=== PATIENT | female | born 1955 | race Caucasian/White ===

== ENCOUNTER → 2017-01-06 | Outpatient (CLI) | payer MEDICARE ==
[~2017-01-06] MED LIST: AMIT25TA PO; ARIP1TAB6 PO; ASPI1TAB PO; ASPI81TAEC PO; ATOR40TA PO; BACITAB3 PO; CARV3.12 PO; CLEO300C2 PO; COLA100C PO; CORE3.12 PO; CYCL5TA PO; DEPA500T2 PO; DICL13PA TOP; DIPH25CA PO; DOCU100C PO; DOXY100C PO; DOXY100T PO; EUCECRE3 TOP; FERR325T PO; FERR325T3 PO; FURO20TA2 PO; HYDR-3713 PO; HYDR25T PO; KEFL500C7 PO; LASI20TA PO; LASI40TA PO; LEVO137T2 PO; LISI-542 PO; LISI25TA PO; MUSCCRE9 EXT; MUSCCRE9 TOP; PANT20TA PO; PANT40TA2 PO; PARO15TA PO; PERC10TA17 PO; PERCOCET PO; PLAV75TA38 PO; POTA10CA PO; PRED10TA PO; REQU0.5T PO; ROPI0.25 PO; ROPI0.5T PO; TORS20TA2 PO; TRAZ25TA PO; TRIA1OI TOP; VITA-130 PO
[2017-01-06 14:29] LABS: BASO % 0.5 % (0.0-1.0); EOS # 0.5 K/mm3 (0.0-0.50); EOS % 6.9 % (0.0-3.0); LARGE UNSTAINED CELL # 0.1 K/mm3 (0.0-0.4); LARGE UNSTAINED CELL % 1.8 % (0.0-4.0); LYMPH # 1.8 K/mm3 (1.5-4.5); LYMPH % 24.6 % (24.0-44.0); MEAN CORPUSCULAR HEMOGLOBIN 28.4 pg (27.0-33.0); MEAN CORPUSCULAR HGB CONC 31.4 g/dl (32.0-36.5); MEAN CORPUSCULAR VOLUME 90.4 fl (80.0-96.0); MONO # 0.5 K/mm3 (0.0-0.8); MONO % 7.4 % (0.0-5.0); NEUTROPHILS % 58.8 % (36.0-66.0); PLATELET COUNT, AUTOMATED 399 k/mm3 (150-450); RED CELL DISTRIBUTION WIDTH 16.5 % (11.5-14.5); WHITE BLOOD COUNT 6.7 K/mm3 (4.0-10.0)
[2017-01-06 15:02] LABS: ALBUMIN 3.2 GM/DL (3.2-5.2); CALCIUM LEVEL 8.8 MG/DL (8.8-10.2); CREATININE FOR GFR 1.08 MG/DL (0.55-1.02); GLOMERULAR FILTRATION RATE 54.5 (>45); PHOSPHORUS LEVEL 3.6 MG/DL (2.5-4.9)
== END ==
LOC: M LAB 13:11
PROVIDERS: ATTEND Internal Medicine Rheumatology
DX: Z51.81 Encounter for therapeutic drug level monitoring (principal); Z79.899 Other long term (current) drug therapy; M05.79 Rheumatoid arthritis with rheumatoid factor of multiple sites without organ or systems involvement

== ENCOUNTER → 2017-01-16 | Outpatient (CLI) | payer MEDICARE ==
[2017-01-16 17:17] LABS: BASO % 0.5 % (0.0-1.0); EOS # 0.4 K/mm3 (0.0-0.50); EOS % 6.1 % (0.0-3.0); LARGE UNSTAINED CELL # 0.3 K/mm3 (0.0-0.4); LARGE UNSTAINED CELL % 3.8 % (0.0-4.0); LYMPH # 1.7 K/mm3 (1.5-4.5); LYMPH % 25.6 % (24.0-44.0); MEAN CORPUSCULAR HEMOGLOBIN 27.5 pg (27.0-33.0); MEAN CORPUSCULAR HGB CONC 30.7 g/dl (32.0-36.5); MEAN CORPUSCULAR VOLUME 89.7 fl (80.0-96.0); MONO # 0.5 K/mm3 (0.0-0.8); MONO % 6.9 % (0.0-5.0); NEUTROPHILS # 3.8 K/mm3 (1.8-7.7); NEUTROPHILS % 57.1 % (36.0-66.0); PLATELET COUNT, AUTOMATED 317 k/mm3 (150-450); RED CELL DISTRIBUTION WIDTH 15.6 % (11.5-14.5); WHITE BLOOD COUNT 6.6 K/mm3 (4.0-10.0)
[2017-01-16 17:47] LABS: ALBUMIN 3.1 GM/DL (3.2-5.2); ANION GAP 7 MEQ/L (8-16); BLOOD UREA NITROGEN 14 MG/DL (7-18); CALCIUM LEVEL 8.7 MG/DL (8.8-10.2); CARBON DIOXIDE LEVEL 32 MEQ/L (21-32); CHLORIDE LEVEL 106 MEQ/L (98-107); CREATININE FOR GFR 0.85 MG/DL (0.55-1.02); GLOMERULAR FILTRATION RATE > 60.0 (>45); GLUCOSE, FASTING 95 MG/DL (80-110); PHOSPHORUS LEVEL 3.8 MG/DL (2.5-4.9); SODIUM LEVEL 145 MEQ/L (136-145)
--- NOTE | 2017-01-16 18:22 | REP ---
Clinical: Rheumatoid arthritis. Technique: AP, lateral, bilateral oblique, sunrise, and weightbearing views of the right and left knee. Findings: Age-related osteopenia with moderate left and early advanced right tricompartmental osteoarthritic degenerative changes appreciated. Findings include cortical irregularities, increased sclerosis to the tibial surface, subtle subchondral cystic changes (right greater than left) and marginal osteophyte (right greater than left) as well as patellofemoral joint space narrowing and marginal spurring along the lateral aspect of the patellae. No obvious effusion. No fracture or dislocation. Impression: Bilateral osteoarthritic degenerative changes as described above (right greater than left). Signed by Jackson Covington MD 01/16/2017 06:12 P
== END ==
LOC: M LAB 16:55
PROVIDERS: ATTEND Internal Medicine Rheumatology
DX: Z51.81 Encounter for therapeutic drug level monitoring (principal); Z79.899 Other long term (current) drug therapy; M05.79 Rheumatoid arthritis with rheumatoid factor of multiple sites without organ or systems involvement; D63.8 Anemia in other chronic diseases classified elsewhere; R53.83 Other fatigue; M17.0 Bilateral primary osteoarthritis of knee

== ENCOUNTER → 2017-01-19 | Outpatient (CLI) | payer MEDICARE ==
--- NOTE | 2017-01-20 06:39 | REP ---
CT study of the chest without contrast: History: Follow-up pulmonary nodules. Comparison CT studies are dated August 22, 2016 and October 04, 2009. CT findings: There are stable pretracheal mediastinal lymph nodes. A large hiatal hernia is again seen behind the heart. No adrenal lesion is seen. The visualized upper abdominal structures are otherwise unremarkable. There is fairly heavy vascular calcification in the left coronary artery again noted. The right shoulder is replaced. There are multiple noncalcified pulmonary nodules. These are present bilaterally. They range in size from 2 mm to 9 mm. The 9 mm nodule is seen in the right upper lobe just posterior to the right upper lobe bronchus centrally. This is unchanged from the comparison study of August 22, 2016 but is new from the 2008 study. The next largest nodule is in the right middle lobe. This is unchanged from the comparison study of August 22, 2016. It is new from 2008. It measures 6 mm today. There are multiple other smaller nodules in the upper lobes bilaterally and in the right lower lobe. There are two new pulmonary nodules in the right lower lobe noted on image numbers 44 and 42 of 102 in series 201 of today's study. These are 4 and 6 mm in diameter respectively. There is another new pulmonary nodule in the right upper lobe on image 29 of 102 in series 201. This is 3 mm in diameter. The other visualized nodules appear to be unchanged. No bony destructive lesion is seen. Impression: 1. Multiple noncalcified pulmonary nodules ranging from 2-9 mm. This includes three new pulmonary nodules since the August 22, 2016 study. Most of these are new from 2008. I cannot exclude metastatic disease. 2. Hiatal hernia and fairly heavy left coronary artery vascular calcification are again noted. Signed by Charles Guerra MD 01/20/2017 08:29 A
== END ==
LOC: M RAD 18:17
PROVIDERS: ATTEND Internal Medicine Pulmonary Disease
DX: R91.8 Other nonspecific abnormal finding of lung field (principal); K44.9 Diaphragmatic hernia without obstruction or gangrene; I25.10 Atherosclerotic heart disease of native coronary artery without angina pectoris

== ENCOUNTER → 2017-01-29 | Outpatient (CLI) | payer MEDICARE ==
[2017-01-29 18:14] LABS: BASO % 0.4 % (0.0-1.0); EOS # 0.4 K/mm3 (0.0-0.50); EOS % 5.2 % (0.0-3.0); LARGE UNSTAINED CELL # 0.2 K/mm3 (0.0-0.4); LARGE UNSTAINED CELL % 2.2 % (0.0-4.0); LYMPH # 1.3 K/mm3 (1.5-4.5); LYMPH % 15.4 % (24.0-44.0); MEAN CORPUSCULAR HEMOGLOBIN 28.1 pg (27.0-33.0); MEAN CORPUSCULAR HGB CONC 31.5 g/dl (32.0-36.5); MEAN CORPUSCULAR VOLUME 89.1 fl (80.0-96.0); MONO # 0.2 K/mm3 (0.0-0.8); MONO % 2.7 % (0.0-5.0); NEUTROPHILS % 74.3 % (36.0-66.0); PLATELET COUNT, AUTOMATED 395 k/mm3 (150-450); RED CELL DISTRIBUTION WIDTH 15.2 % (11.5-14.5); WHITE BLOOD COUNT 8.1 K/mm3 (4.0-10.0)
[2017-01-29 18:57] LABS: ALBUMIN 3.1 GM/DL (3.2-5.2); ALT/SGPT 15 U/L (12-78); ANION GAP 7 MEQ/L (8-16); BLOOD UREA NITROGEN 21 MG/DL (7-18); CALCIUM LEVEL 8.8 MG/DL (8.8-10.2); CARBON DIOXIDE LEVEL 34 MEQ/L (21-32); CHLORIDE LEVEL 100 MEQ/L (98-107); CREATININE FOR GFR 0.88 MG/DL (0.55-1.02); GLOMERULAR FILTRATION RATE > 60.0 (>45); GLUCOSE, FASTING 89 MG/DL (80-110); PHOSPHORUS LEVEL 3.4 MG/DL (2.5-4.9); POTASSIUM SERUM 4.5 MEQ/L (3.5-5.1); SODIUM LEVEL 141 MEQ/L (136-145)
== END ==
LOC: M LAB 17:37
PROVIDERS: ATTEND Internal Medicine Rheumatology
DX: Z51.81 Encounter for therapeutic drug level monitoring (principal); M05.79 Rheumatoid arthritis with rheumatoid factor of multiple sites without organ or systems involvement; Z79.899 Other long term (current) drug therapy

== ENCOUNTER → 2017-02-27 | Outpatient (CLI) | payer MEDICARE ==
[~2017-02-27] MED LIST changes: -COLA100C PO; +COLA100C3 PO; +LISI2.5T76 PO; -LISI25TA PO
[2017-02-27 20:36] LABS: BASO % 0.5 % (0.0-1.0); EOS # 0.3 K/mm3 (0.0-0.50); EOS % 3.5 % (0.0-3.0); LARGE UNSTAINED CELL # 0.1 K/mm3 (0.0-0.4); LARGE UNSTAINED CELL % 1.5 % (0.0-4.0); LYMPH # 1.8 K/mm3 (1.5-4.5); LYMPH % 23.7 % (24.0-44.0); MEAN CORPUSCULAR HEMOGLOBIN 27.7 pg (27.0-33.0); MEAN CORPUSCULAR HGB CONC 31.4 g/dl (32.0-36.5); MEAN CORPUSCULAR VOLUME 88.2 fl (80.0-96.0); MONO # 0.3 K/mm3 (0.0-0.8); NEUTROPHILS % 66.7 % (36.0-66.0); PLATELET COUNT, AUTOMATED 348 k/mm3 (150-450); RED CELL DISTRIBUTION WIDTH 15.9 % (11.5-14.5); WHITE BLOOD COUNT 7.5 K/mm3 (4.0-10.0)
[2017-02-27 21:05] LABS: ALT/SGPT 27 U/L (12-78); ANION GAP 5 MEQ/L (8-16); BLOOD UREA NITROGEN 21 MG/DL (7-18); CALCIUM LEVEL 9.1 MG/DL (8.8-10.2); CARBON DIOXIDE LEVEL 36 MEQ/L (21-32); CHLORIDE LEVEL 98 MEQ/L (98-107); CREATININE FOR GFR 0.84 MG/DL (0.55-1.02); GLOMERULAR FILTRATION RATE > 60.0 (>45); GLUCOSE, FASTING 89 MG/DL (80-110); PHOSPHORUS LEVEL 3.5 MG/DL (2.5-4.9); POTASSIUM SERUM 3.9 MEQ/L (3.5-5.1); SODIUM LEVEL 139 MEQ/L (136-145)
[2017-02-27 21:06] LABS: ALBUMIN 3.5 GM/DL (3.2-5.2)
== END ==
LOC: M LAB 18:15
PROVIDERS: ATTEND Internal Medicine Rheumatology
DX: Z51.81 Encounter for therapeutic drug level monitoring (principal); Z79.899 Other long term (current) drug therapy; M05.79 Rheumatoid arthritis with rheumatoid factor of multiple sites without organ or systems involvement

== ENCOUNTER 2017-03-15 10:00 | Emergency (ER) | payer MEDICARE ==
[~2017-03-15] VITALS: Ht 167.6 cm; Wt 77.1 kg
[2017-03-15] MEDS ORDERED: NORCO, ANEXSIA 5/325MG TABLET (HYDROcodone/ACETAMINOPHEN) PO ONE (10:45)
--- NOTE | 2017-03-15 11:46 | REP ---
CT of the brain without IV contrast: There are no comparisons. There is no subdural or epidural hematoma. There is no subarachnoid or intraparenchymal hemorrhage. There is no edema, mass effect or midline shift. Cortical stripe is unremarkable. Impression: There is no subdural or other hemorrhage. No acute infarct or mass. Negative CT study of the brain. Signed by Romeo Calabrese MD 03/15/2017 11:38 A
--- NOTE | 2017-03-15 11:54 | REP ---
Left ribs and PA chest: Left ribs four views: There is no rib fracture or other rib abnormality. PA chest: Comparison is 10/02/2016. There is no pneumothorax, hemothorax or pulmonary contusion. The lung hdz are clear. Cardiac size is normal. There is a fixed hiatal hernia, unchanged. There is a right shoulder arthroplasty, unchanged. Impression: Essentially negative PA chest. Hiatal hernia and right shoulder arthroplasty are again identified. Signed by Romeo Calabrese MD 03/15/2017 11:46 A
[2017-03-15 12:02] VITALS: BP 156/95
== END 2017-03-15 12:15 | disposition home or self-care (01) ==
LOC: M ED 10:49
DX: S00.03XA Contusion of scalp, initial encounter (principal); S20.219A Contusion of unspecified front wall of thorax, initial encounter; S80.00XA Contusion of unspecified knee, initial encounter; W01.10XA Fall on same level from slipping, tripping and stumbling with subsequent striking against unspecified object, initial encounter; Y92.019 Unspecified place in single-family (private) house as the place of occurrence of the external cause; Y93.89 Activity, other specified; Y99.8 Other external cause status; F17.210 Nicotine dependence, cigarettes, uncomplicated; Z88.1 Allergy status to other antibiotic agents; Z79.899 Other long term (current) drug therapy; Z79.82 Long term (current) use of aspirin; G25.81 Restless legs syndrome; Z95.5 Presence of coronary angioplasty implant and graft; E78.00 Pure hypercholesterolemia, unspecified; E03.9 Hypothyroidism, unspecified; F41.9 Anxiety disorder, unspecified; F32.9 Major depressive disorder, single episode, unspecified

== ENCOUNTER → 2017-03-18 | Outpatient (CLI) | payer MEDICARE ==
[2017-03-18 07:01] LABS: BASO % 0.5 % (0.0-1.0); EOS # 0.2 K/mm3 (0.0-0.50); EOS % 3.1 % (0.0-3.0); LARGE UNSTAINED CELL # 0.1 K/mm3 (0.0-0.4); LARGE UNSTAINED CELL % 1.5 % (0.0-4.0); LYMPH # 1.4 K/mm3 (1.5-4.5); LYMPH % 18.1 % (24.0-44.0); MEAN CORPUSCULAR HEMOGLOBIN 28.8 pg (27.0-33.0); MEAN CORPUSCULAR HGB CONC 32.7 g/dl (32.0-36.5); MEAN CORPUSCULAR VOLUME 88.1 fl (80.0-96.0); MONO # 0.4 K/mm3 (0.0-0.8); MONO % 5.3 % (0.0-5.0); NEUTROPHILS # 5.7 K/mm3 (1.8-7.7); NEUTROPHILS % 71.4 % (36.0-66.0); PLATELET COUNT, AUTOMATED 333 k/mm3 (150-450); RED CELL DISTRIBUTION WIDTH 16.6 % (11.5-14.5)
[2017-03-18 07:38] LABS: ALBUMIN/GLOBULIN RATIO 0.91 (1.00-1.93); ALKALINE PHOSPHATASE 99 U/L (45-117); ALT/SGPT 34 U/L (12-78); ANION GAP 4 MEQ/L (8-16); AST/SGOT 28 U/L (15-37); BILIRUBIN,TOTAL 0.3 MG/DL (0.2-1.0); BLOOD UREA NITROGEN 16 MG/DL (7-18); CALCIUM LEVEL 8.5 MG/DL (8.8-10.2); CARBON DIOXIDE LEVEL 30 MEQ/L (21-32); CHLORIDE LEVEL 106 MEQ/L (98-107); CHOLESTEROL LEVEL 174 MG/DL (<200); CREATININE FOR GFR 0.69 MG/DL (0.55-1.02); FERRITIN 19 NG/ML (8-252); FREE T4 1.04 NG/DL (0.76-1.46); GLOMERULAR FILTRATION RATE > 60.0 (>45); GLUCOSE, FASTING 100 MG/DL (80-110); PERCENT SATURATION 5.2 % (13.2-37.4); POTASSIUM SERUM 4.5 MEQ/L (3.5-5.1); SODIUM LEVEL 140 MEQ/L (136-145); TOTAL IRON BINDING CAPACITY 383 UG/DL (250-450); TOTAL PROTEIN 6.3 GM/DL (6.4-8.2); TRIGLYCERIDES LEVEL 123 MG/DL (<150)
[2017-03-18 09:18] LABS: FOLATE 18.7 NG/ML; VITAMIN B12 LEVEL 462 PG/ML
== END ==
LOC: M LAB 06:21
PROVIDERS: ATTEND Family Medicine
DX: M06.9 Rheumatoid arthritis, unspecified (principal); E03.9 Hypothyroidism, unspecified; I10 Essential (primary) hypertension; G25.81 Restless legs syndrome; E78.5 Hyperlipidemia, unspecified; D64.9 Anemia, unspecified

== ENCOUNTER 2017-04-22 16:36 | Emergency (ER) | payer MEDICARE ==
[~2017-04-22] VITALS: Ht 167.6 cm; Wt 75.3 kg
[2017-04-22] MEDS ORDERED: ROPI1TAB PO (16:54)
[2017-04-22] MEDS ORDERED: ABIL5TAB5 PO (16:54)
[2017-04-22] MEDS ORDERED: FOLI1TAB2 PO (16:54)
[2017-04-22] MEDS ORDERED: PERC10TA17 PO (16:54)
[2017-04-22] MEDS ORDERED: TORS20TA2 PO (16:54)
[2017-04-22 17:55] LABS: BASO % 0.5 % (0.0-1.0); EOS # 0.2 K/mm3 (0.0-0.50); EOS % 3.2 % (0.0-3.0); LARGE UNSTAINED CELL # 0.2 K/mm3 (0.0-0.4); LARGE UNSTAINED CELL % 2.6 % (0.0-4.0); LYMPH # 1.4 K/mm3 (1.5-4.5); LYMPH % 21.7 % (24.0-44.0); MEAN CORPUSCULAR HEMOGLOBIN 27.3 pg (27.0-33.0); MEAN CORPUSCULAR HGB CONC 31.9 g/dl (32.0-36.5); MEAN CORPUSCULAR VOLUME 85.7 fl (80.0-96.0); MONO # 0.4 K/mm3 (0.0-0.8); MONO % 6.8 % (0.0-5.0); NEUTROPHILS # 4.1 K/mm3 (1.8-7.7); NEUTROPHILS % 65.2 % (36.0-66.0); PLATELET COUNT, AUTOMATED 312 k/mm3 (150-450); RED CELL DISTRIBUTION WIDTH 16.1 % (11.5-14.5); WHITE BLOOD COUNT 6.3 K/mm3 (4.0-10.0)
[2017-04-22] MEDS ORDERED: MECLIZINE 25 MG TABLET PO ONE (18:00)
[2017-04-22 18:15] LABS: ANION GAP 9 MEQ/L (8-16); BLOOD UREA NITROGEN 14 MG/DL (7-18); CALCIUM LEVEL 8.8 MG/DL (8.8-10.2); CARBON DIOXIDE LEVEL 32 MEQ/L (21-32); CHLORIDE LEVEL 99 MEQ/L (98-107); CREATININE FOR GFR 0.78 MG/DL (0.55-1.02); FREE T4 1.43 NG/DL (0.76-1.46); GLOMERULAR FILTRATION RATE > 60.0 (>45); GLUCOSE, FASTING 100 MG/DL (80-110); POTASSIUM SERUM 3.9 MEQ/L (3.5-5.1); SODIUM LEVEL 140 MEQ/L (136-145)
--- NOTE | 2017-04-22 18:21 | REP ---
CT of the brain without IV contrast: Comparison is 03/15/2017. There is no hemorrhage. The cortical stripe is unremarkable. Ventricles are normal size and midline. There is no edema, mass effect or midline shift. The visualized paranasal sinuses and mastoid air cells are unchanged. Impression: Essentially negative CT study of the brain. There is no hemorrhage, acute infarct or mass. Signed by Romeo Calabrese MD 04/22/2017 06:12 P
--- NOTE | 2017-04-22 18:23 | REP ---
Chest, single PA view: Comparison is 03/15/2017. The lung hdz are clear. Cardiac size is normal. The shelley, mediastinum, and bony thorax are unremarkable. There is a fixed hiatal hernia, unchanged. There is a right shoulder arthroplasty, unchanged. Impression: There are no acute cardiopulmonary findings. Signed by Romeo Calabrese MD 04/22/2017 06:14 P
[2017-04-22 18:36] LABS: METHADONE URINE NEGATIVE (NEGATIVE)
[2017-04-22] MEDS ORDERED: MECL-86 PO (20:36)
[2017-04-22 20:48] VITALS: BP 135/80
--- NOTE | 2017-04-23 08:58 | ECGEPIP ---
Stationary ECG Study [facility] - ED Test Date: 2017-04-22 Pat Name: TEDDY GOODWIN Department: Room: - Gender: F [employer] Manager: karyna : 1955 Requested By: JACQUELINE Odom Order Number: [id number] Reading MD: Lucila Lan Measurements Intervals [place] Rate: 95 P: 49 SC: 183 QRS: 1 QRSD: 86 T: 3 QT: 341 QTc: 430 Interpretive Statements SINUS RHYTHM MODERATE T-WAVE ABNORMALITY, CONSIDER ANTEROLATERAL ISCHEMIA ?INFERIOR INFARCT CLINICAL CORRELATION NO PRIOR FOR COMPARISON Electronically Signed On 04-23-2017 8:58:05 EDT by Lucila Lan
== END 2017-04-22 21:41 | disposition home or self-care (01) ==
LOC: M ED 17:51
DX: H81.10 Benign paroxysmal vertigo, unspecified ear (principal); R94.31 Abnormal electrocardiogram [ECG] [EKG]; I25.10 Atherosclerotic heart disease of native coronary artery without angina pectoris; I51.9 Heart disease, unspecified; F32.9 Major depressive disorder, single episode, unspecified; G25.81 Restless legs syndrome; E78.00 Pure hypercholesterolemia, unspecified; I10 Essential (primary) hypertension; Z87.891 Personal history of nicotine dependence; Z95.5 Presence of coronary angioplasty implant and graft; Z79.82 Long term (current) use of aspirin; Z79.899 Other long term (current) drug therapy; Z88.1 Allergy status to other antibiotic agents
CPT/HCPCS: 36415; 70450; 71010; 80048; 80306; 81001; 83735; 84439; 84443; 85025; 93005; 93041; 94760; 99285; G0480

== ENCOUNTER → 2017-05-20 | Outpatient (CLI) | payer MEDICARE ==
[~2017-05-20] MED LIST changes: +ABIL5TAB5 PO; +FOLI1TAB2 PO; +MECL-86 PO; +ROPI1TAB PO
[2017-05-20 12:48] LABS: ALBUMIN 2.7 GM/DL (3.2-5.2); ALBUMIN/GLOBULIN RATIO 0.71 (1.00-1.93); ALKALINE PHOSPHATASE 93 U/L (45-117); ALT/SGPT 22 U/L (12-78); ANION GAP 6 MEQ/L (8-16); AST/SGOT 48 U/L (15-37); BILIRUBIN,TOTAL 0.5 MG/DL (0.2-1.0); BLOOD UREA NITROGEN 15 MG/DL (7-18); CALCIUM LEVEL 9.1 MG/DL (8.8-10.2); CARBON DIOXIDE LEVEL 32 MEQ/L (21-32); CHLORIDE LEVEL 102 MEQ/L (98-107); CREATININE FOR GFR 0.86 MG/DL (0.55-1.02); GLOMERULAR FILTRATION RATE > 60.0 (>45); GLUCOSE, FASTING 83 MG/DL (80-110); SODIUM LEVEL 140 MEQ/L (136-145); TOTAL PROTEIN 6.5 GM/DL (6.4-8.2)
== END ==
LOC: M LAB 11:30
PROVIDERS: ATTEND Internal Medicine Rheumatology
DX: Z79.899 Other long term (current) drug therapy (principal)

== ENCOUNTER 2017-07-02 11:38 | Emergency (ER) | payer MEDICARE ==
[~2017-07-02] VITALS: Ht 167.6 cm; Wt 71.7 kg
[~2017-07-02 11:38] MED LIST changes: +ABIL1TAB11 PO; -ABIL5TAB5 PO; -ATOR40TA PO; +ATOR40TA75 PO; +BACITAB PO; -BACITAB3 PO; -COLA100C3 PO; +COLA100C5 PO; -CYCL5TA PO; +CYCL5TAB PO; -DOCU100C PO; +DOCU100C16 PO; +FERR1TAB8 PO; -FERR325T PO; -FOLI1TAB2 PO; +FOLI1TAB4 PO; +HYDR-3363 PO; -HYDR25T PO; +KEFL500C17 PO; -KEFL500C7 PO; +MUSC1CRE EXT; +MUSC1CRE TOP; -MUSCCRE9 EXT; -MUSCCRE9 TOP; -PERC10TA17 PO; +PERC10TA26 PO; +PLAV1TAB2 PO; -PLAV75TA38 PO; -REQU0.5T PO; +REQU1TAB15 PO; -VITA-130 PO; +VITA500T PO
[2017-07-02 11:39] VITALS: BP 98/55
[2017-07-02] MEDS ORDERED: PERM5CR (11:51)
[2017-07-02] MEDS ORDERED: OXYCOD/APAP (11:51)
[2017-07-02] MEDS ORDERED: CARV6.25 PO (11:51)
[2017-07-02] MEDS ORDERED: OPAN5TAB PO (11:51)
[2017-07-02] MEDS ORDERED: PARO15TA PO (11:51)
[2017-07-02] MEDS ORDERED: ERYTOIN8 OU (13:09)
[2017-07-02] MEDS ORDERED: CLAR1TAB2 PO (13:09)
[2017-07-02] MEDS ORDERED: AUGM875T28 PO (13:09)
[2017-07-02] MEDS ORDERED: LORATADINE 10 MG TAB PO ONE (13:15)
[2017-07-02] MEDS ORDERED: AUGMENTIN 875 MG TAB PO ONE (13:15)
== END 2017-07-02 13:19 | disposition home or self-care (01) ==
LOC: M ED 11:38
DX: H10.213 Acute toxic conjunctivitis, bilateral (principal); T60.1X1A Toxic effect of halogenated insecticides, accidental (unintentional), initial encounter; Y92.9 Unspecified place or not applicable; Y93.9 Activity, unspecified; Z95.5 Presence of coronary angioplasty implant and graft; G25.81 Restless legs syndrome; R51 Headache; I50.9 Heart failure, unspecified; I25.2 Old myocardial infarction; E78.00 Pure hypercholesterolemia, unspecified; E03.9 Hypothyroidism, unspecified; F17.290 Nicotine dependence, other tobacco product, uncomplicated; K92.9 Disease of digestive system, unspecified; Z87.440 Personal history of urinary (tract) infections; Z85.41 Personal history of malignant neoplasm of cervix uteri; G89.29 Other chronic pain; M25.569 Pain in unspecified knee; M71.20 Synovial cyst of popliteal space [Baker], unspecified knee; D75.9 Disease of blood and blood-forming organs, unspecified; F41.9 Anxiety disorder, unspecified; F32.9 Major depressive disorder, single episode, unspecified; Z79.82 Long term (current) use of aspirin; Z79.899 Other long term (current) drug therapy; Z88.1 Allergy status to other antibiotic agents

== ENCOUNTER 2017-07-18 11:12 | Emergency (ER) | payer MEDICARE ==
[~2017-07-18] VITALS: Ht 167.6 cm; Wt 69.5 kg
[~2017-07-18 11:12] MED LIST changes: +AUGM875T28 PO; +CARV6.25 PO; +CLAR1TAB2 PO; +ERYTOIN8 OU; +OPAN5TAB PO; +OXYCOD/APAP; +PERM5CR
[2017-07-18 11:13] VITALS: BP 99/55
[2017-07-18 12:27] LABS: BASO % 0.4 % (0.0-1.0); EOS # 0.7 K/mm3 (0.0-0.50); EOS % 9.6 % (0.0-3.0); LARGE UNSTAINED CELL # 0.1 K/mm3 (0.0-0.4); LARGE UNSTAINED CELL % 1.1 % (0.0-4.0); LYMPH % 14.2 % (24.0-44.0); MEAN CORPUSCULAR HEMOGLOBIN 27.8 pg (27.0-33.0); MEAN CORPUSCULAR HGB CONC 31.5 g/dl (32.0-36.5); MEAN CORPUSCULAR VOLUME 88.3 fl (80.0-96.0); MONO # 0.5 K/mm3 (0.0-0.8); MONO % 7.4 % (0.0-5.0); NEUTROPHILS # 4.7 K/mm3 (1.8-7.7); NEUTROPHILS % 67.4 % (36.0-66.0); PLATELET COUNT, AUTOMATED 343 k/mm3 (150-450); RED CELL DISTRIBUTION WIDTH 15.8 % (11.5-14.5)
[2017-07-18 12:48] LABS: ERYTHROCYTE SEDIMENTATION RATE 58 mm/hr (0-30)
--- NOTE | 2017-07-18 12:55 | REP ---
Chest two views HISTORY: Cough Comparison: 04/22/2017 The lungs are clear. The heart is normal in size. The pulmonary vasculature is normal in appearance. A hiatal hernia is present. Degenerative change is present in the thoracic spine. The patient is status post right shoulder arthroplasty. IMPRESSION: No acute disease. Signed by Bayron Gonzalez MD 07/18/2017 12:47 P
[2017-07-18 13:07] LABS: ANION GAP 8 MEQ/L (8-16); BLOOD UREA NITROGEN 14 MG/DL (7-18); CALCIUM LEVEL 8.6 MG/DL (8.8-10.2); CARBON DIOXIDE LEVEL 30 MEQ/L (21-32); CHLORIDE LEVEL 106 MEQ/L (98-107); CREATININE FOR GFR 0.73 MG/DL (0.55-1.02); GLOMERULAR FILTRATION RATE > 60.0 (>45); GLUCOSE, FASTING 103 MG/DL (80-110); POTASSIUM SERUM 4.3 MEQ/L (3.5-5.1); SODIUM LEVEL 144 MEQ/L (136-145)
[2017-07-18 13:12] LABS: ALBUMIN 2.7 GM/DL (3.2-5.2); ALBUMIN/GLOBULIN RATIO 0.66 (1.00-1.93); BILIRUBIN,DIRECT 0.1 MG/DL (0.0-0.2); BILIRUBIN,TOTAL 0.2 MG/DL (0.2-1.0); TOTAL PROTEIN 6.8 GM/DL (6.4-8.2)
[2017-07-18] MEDS ORDERED: PRED20TA PO (13:50)
== END 2017-07-18 14:00 | disposition home or self-care (01) ==
LOC: M ED 11:12
DX: R21 Rash and other nonspecific skin eruption (principal); T60.1X Toxic effect of halogenated insecticides; Y92.9 Unspecified place or not applicable; Y93.9 Activity, unspecified; I25.10 Atherosclerotic heart disease of native coronary artery without angina pectoris; I50.9 Heart failure, unspecified; I25.2 Old myocardial infarction; G25.81 Restless legs syndrome; M54.2 Cervicalgia; M25.569 Pain in unspecified knee; F41.9 Anxiety disorder, unspecified; F32.9 Major depressive disorder, single episode, unspecified; K21.9 Gastro-esophageal reflux disease without esophagitis; D64.9 Anemia, unspecified; Z95.5 Presence of coronary angioplasty implant and graft; F17.290 Nicotine dependence, other tobacco product, uncomplicated; Z79.82 Long term (current) use of aspirin; Z79.899 Other long term (current) drug therapy; Z88.1 Allergy status to other antibiotic agents; Z88.8 Allergy status to other drugs, medicaments and biological substances

== ENCOUNTER → 2017-07-20 | Outpatient (REF) | payer MEDICARE ==
[~2017-07-20] MED LIST changes: +BETA115CR; +COUM2.5T17 PO; +ESTR62CR PV; +NYST10CR; +OXYC-141 PO; +PRED20TA PO
== END ==
LOC: M SFHCWAGY 15:50
PROVIDERS: ATTEND Nurse Practitioner Family
DX: N89.8 Other specified noninflammatory disorders of vagina (principal); Z11.3 Encounter for screening for infections with a predominantly sexual mode of transmission; R87.810 Cervical high risk human papillomavirus (HPV) DNA test positive; Z11.51 Encounter for screening for human papillomavirus (HPV); Z85.41 Personal history of malignant neoplasm of cervix uteri; Z86.19 Personal history of other infectious and parasitic diseases

== ENCOUNTER → 2017-07-31 | Outpatient (CLI) | payer MEDICARE ==
[~2017-07-31] MED LIST changes: +CETI10TA; +GABA-279; +ISOVUE-370 76% 100ML VIAL (Q9967) As Ordered ONE; +METH4PACK; +RANI150T; +ZITH250T PO
--- NOTE | 2017-07-31 12:34 | REP ---
Clinical: Follow-up pulmonary nodules. Technique: Axial contrast enhanced images from the thoracic inlet to the upper abdomen using 100 ml Isovue 370 intravenous contrast material with coronal and sagittal re-formations. Comparison: 01/19/2017, 08/22/2016, 10/04/2009. Findings: Current examination demonstrates chronic age-related diffuse interstitial changes and bronchiectasis along with scattered scarring. Scattered bilateral pulmonary nodules are identified measuring up to 7 mm and has a somewhat waxing and waning appearance when compared to prior examination. As example, 7 mm nodule in the perihilar right upper lobe (image 37) previously measured 9.5 mm while the 5 mm nodule in the periphery of the right lower lobe (image 54) previously measured 2.5 mm. No consolidation, pleural effusion or pneumothorax. Tracheobronchial tree is patent. A moderate hiatal hernia is appreciated. Atherosclerotic changes to the thoracic aorta and coronary arteries noted. No pericardial effusion. Upper abdomen demonstrates normal bilateral adrenal glands. Impression: 1. Chronic interstitial changes and bronchiectasis similar to prior examinations. 2. Scattered noncalcified pulmonary nodules currently measuring up to 7 mm have a somewhat waxing and waning appearance when compared to prior examination. Findings are nonspecific and include but not limited to granulomas disease as well as metastatic disease which cannot be definitively excluded. Signed by Jackson Covington MD 07/31/2017 12:25 P
== END ==
LOC: M RAD 11:36
PROVIDERS: ATTEND Family Medicine
DX: R91.8 Other nonspecific abnormal finding of lung field (principal); K44.9 Diaphragmatic hernia without obstruction or gangrene; I25.10 Atherosclerotic heart disease of native coronary artery without angina pectoris; I70.0 Atherosclerosis of aorta
CPT/HCPCS: 71260; Q9967

== ENCOUNTER 2017-08-10 12:00 | Inpatient (IN) | payer MEDICARE, MEDICAID ==
[~2017-08-10] VITALS: Ht 162.6 cm; Wt 69.4 kg
[~2017-08-10 12:00] MED LIST changes: -BETA115CR; -CETI10TA; -COUM2.5T17 PO; -ESTR62CR PV; -GABA-279; -ISOVUE-370 76% 100ML VIAL (Q9967) As Ordered ONE; -METH4PACK; -NYST10CR; -OXYC-141 PO; -RANI150T; -ZITH250T PO
[2017-08-12] MEDS ORDERED: BETA115CR (10:41)
[2017-08-12] MEDS ORDERED: NYST10CR (10:41)
[2017-08-12] MEDS ORDERED: POTA10CA PO (10:41)
[2017-08-12 10:45] VITALS: BP 98/56
--- NOTE | 2017-08-13 16:29 | HPE ---
DATE OF SCHEDULED ADMISSION: 08/18/2017 CHIEF COMPLAINT: Right knee pain. HISTORY OF PRESENT ILLNESS: This is a pleasant 61-year-old female with progressively worsening right knee pain and stiffness. She has failed to improve with conservative treatment. She has elected for surgery for her continued symptoms. She has pain with weightbearing activities and her activities of daily living. X-rays of her knee are notable for advanced osteoarthritis of the right knee joint. She has consented for a right total knee arthroplasty by Dr. Hema Macdonald. Medical optimization was performed by Dr. Adkins. ALLERGIES: PERMETHRIN. CURRENT MEDICATIONS - Requip 1 mg at bedtime - Nystatin 100,000 units per gram, one thin layer under breasts twice a day as needed - betamethasone valerate 0.1%, apply to skin twice a day as needed - Klor-Con 10, 10 mEq one tablet by mouth daily - Synthroid 137 mcg a day - trazodone 50 mg at bedtime - torsemide 20 mg by mouth twice a day - Abilify 5 mg by mouth every day - Protonix 20 mg a day - Lipitor 40 mg a day - Percocet 10/325, one by mouth four times a day as needed - folic acid 1 mg by mouth every day - Paxil 30 mg every day - carvedilol 3.125 mg one by mouth twice a day - Depakote ER 500 mg - vitamin C 500 mg PAST MEDICAL HISTORY: Includes megaloblastic anemia, mood disorder, lumbar degenerative disc disease, rheumatoid arthritis, depression, gastroesophageal reflux disease (GERD), hypertension, hyperlipidemia, hypothyroidism, restless legs, obstructive sleep apnea and insomnia. PAST SURGICAL HISTORY: Revision left total hip arthroplasty. SOCIAL HISTORY: She is retired. Does not smoke; she quit smoking 7 years ago. Rarely drinks alcohol. FAMILY HISTORY: Noncontributory. REVIEW OF SYSTEMS: This patient denies chest pain, heart palpitations, cough, wheezing, difficulty breathing and shortness of breath. She denies abdominal pain, nausea, vomiting, diarrhea or constipation. She denies recent upper respiratory infection or urinary tract infection symptoms. She does complain of persistent pain in her right knee and pain with weightbearing activities in her right knee. PHYSICAL EXAMINATION: General: She is a well-nourished, well-developed, in no acute distress adult female. She ambulates with a moderate limp and a very slow, steady gait favoring her right lower extremity. She uses a single-leg cane. Vital signs: She is 62-1/2 inches tall, weighs 150 pounds with a temperature of 99.3, blood pressure 102/64, pulse of 68 and respirations of 12. Neck was supple without adenopathy or jugular venous distension. Lungs were clear to auscultation without rales or wheeze. Heart: Regular rate and rhythm. Abdomen: Bowel sounds were present. Extremities: Examination of the knee revealed intact skin. She had decreased range of motion secondary to pain and stiffness. The limb was neurovascularly intact. LABORATORY DATA: CBC showed a red count of 3.59, hemoglobin of 10.9, hematocrit of 32.6, red cell distribution width of 16.3, otherwise within normal limits. Sedimentation rate was 25, glucose 85, BUN 16, creatinine 0.67, sodium 144, potassium 5.4. Prothrombin time 13.1, INR 0.98. UA showed 1+ protein, trace ketones, 2.0 urobilinogen, trace leukocyte esterase, 4 white blood cells, 5 white blood cells and 1+ bacteria, otherwise within normal limits with a specific gravity of 1.031. Urine culture showed no growth. Nasal and sinus cultures still pending. IMPRESSION: 1. Symptomatic osteoarthritis of the right knee joint. 2. Hyperkalemia. PLAN: The patient met with her primary today who contacted cardiology. We are awaiting the clearance from them. Pending their approval, we will go ahead as planned for a right total knee arthroplasty with Dr. Macdonald on 08/18/2017.
[2017-08-18] VITALS (7 sets, daily range): BP systolic 85–125; BP diastolic 49–89; O2SAT 93
[2017-08-18] MEDS ORDERED: LR 1,000 ML IV ONE (13:15)
[2017-08-18] MEDS ORDERED: ACETAMINOPHEN 500 MG TAB PO ONE (13:15)
[2017-08-18] MEDS ORDERED: ceFAZolin 1GM INJ (J0690) As Ordered ONE (13:22)
[2017-08-18] MEDS ORDERED: TRANEXAMIC ACID 100 MG/ML 10ML VIAL As Ordered ONE (13:22)
[2017-08-18] MEDS ORDERED: BUPIVACAINE LIPOSOME/PF 1.3% 20 ML VIAL (13.3MG/ML)(EXPAREL) As Ordered ONE (13:22)
[2017-08-18] MEDS ORDERED: EPINEPHrine INJ 1 MG/ML 1ML AMP As Ordered ONE (13:22)
[2017-08-18] MEDS ORDERED: ESTR62CR PV (13:40)
[2017-08-18] MEDS ORDERED: MIDAZOLAM INJ 2 MG/2 ML VIAL (J2250) As Ordered ONE ×2 (13:50→14:27)
[2017-08-18] MEDS ORDERED: fentaNYL 100 MCG/2 ML INJECTION (J3010) As Ordered ONE ×2 (13:50→14:27)
[2017-08-18] MEDS: fentaNYL 100 MCG/2 ML INJECTION (J3010) IV SCH ×2 (14:13→14:21)
[2017-08-18] MEDS: MIDAZOLAM INJ 2 MG/2 ML VIAL (J2250) IV SCH ×2 (14:14→14:20)
[2017-08-18] MEDS ORDERED: LIDOCAINE 2% INJ 100 MG/5 ML SDV (FOR ANES.) As Ordered ONE (15:26)
[2017-08-18] MEDS ORDERED: PROPOFOL 200 MG/20 ML VIAL As Ordered ONE (15:26)
[2017-08-18] MEDS ORDERED: ePHEDrine SULFATE 25 MG/5 ML(5MG/ML) SYRINGE As Ordered ONE (15:27)
[2017-08-18] MEDS ORDERED: dexameTHASONE 4 MG/ML 1ML VIAL (J1100) As Ordered ONE (15:28)
[2017-08-18] MEDS ORDERED: ONDANSETRON 4MG/2ML VIAL (J2405) As Ordered ONE (15:28)
[2017-08-18] MEDS ORDERED: MORPHINE 1MG/ML IN 0.9% NACL 100ML IV BAG As Ordered ONE (16:00)
[2017-08-18] MEDS ORDERED: FLEET ENEMA PR PRN (17:00)
[2017-08-18] MEDS ORDERED: WARFARIN SOD 5 MG TAB PO ONE (17:00)
[2017-08-18] MEDS ORDERED: MORPHINE 1MG/ML IN 0.9% NACL 100ML IV BAG IV PRN (17:00)
[2017-08-18] MEDS ORDERED: NALOXONE INJ 0.4 MG/1 ML VIAL (J2310) IV PRN (17:00)
[2017-08-18] MEDS ORDERED: EPIDURAL/PCA KEYS XX PRN (17:00)
[2017-08-18] MEDS ORDERED: ONDANSETRON 4MG/2ML VIAL (J2405) IV PRN ×2 (17:00)
[2017-08-18] MEDS ORDERED: diphenhydrAMINE INJ 50MG/ML VIAL (J1200) IV PRN (17:00)
[2017-08-18] MEDS ORDERED: fentaNYL 100 MCG/2 ML INJECTION (J3010) IV PRN (17:00)
[2017-08-18] MEDS ORDERED: LORATADINE 10 MG TAB PO PRN (17:00)
[2017-08-18] MEDS ORDERED: LR 1,000 ML IV SCH (17:00)
[2017-08-18] MEDS ORDERED: ACETAMINOPHEN TAB 650MG DOSE (2X325MG) PO PRN (17:00)
[2017-08-18] MEDS ORDERED: PERCOCET 5MG/325MG TAB PO PRN (17:00)
[2017-08-18] MEDS ORDERED: NALBUPHINE HCL 10 MG/ML AMP (J2300) IV PRN (17:00)
[2017-08-18] MEDS ORDERED: HYDROmorphone HCL 1 MG/ML SYRINGE (J1170) IV PRN (17:00)
[2017-08-18] MEDS: LR 1,000 ML IV SCH ×2 (17:00→21:13)
--- NOTE | 2017-08-18 17:07 | CR.PDOC ---
[facility] Consultation Consultation DATE OF CONSULTATION: 08/18/17 PRIMARY CARE PHYSICIAN: Dr. Adkins REFERRING PROVIDER: Anand Kenney M.D. ATTENDING PHYSICIAN: Dr. Macdonald REASON FOR CONSULTATION/CHIEF COMPLAINT: . Medical comanagement HISTORY OF PRESENT ILLNESS: . 61-year-old female with past medical history of hypertension, dyslipidemia, CAD , CHF, hypothyroidism, depression, rheumatoid arthritis, insomnia, megaloblastic anemia, and osteoporosis was admitted to [facility] for right total knee replacement. The hospitalist service has been consulted to aid in medical comanagement. At this time, the patient states that the pain in her right knee is relatively well controlled. She denies any acute complaints of fevers, chills , chest pain, shortness breath, abdominal pain, or any nausea/vomiting/diarrhea. ALLERGIES: Please see below. HOME MEDICATIONS: Please see below. PAST MEDICAL HISTORY: 1. . As noted above PAST SURGICAL HISTORY: - Bilateral hip arthroplasty. - Hysterectomy. - Cardiac stent placement. FAMILY HISTORY: Mother had lymphoma, father had coronary artery disease SOCIAL HISTORY: Denies tobacco use, illicit drug use. States that she only occasionally has alcoholic beverages. REVIEW OF SYSTEMS: 10 point review of systems negative unless otherwise specified in HPI. PHYSICAL EXAMINATION: VITAL SIGNS: Please see below. GENERAL APPEARANCE: . Awake, alert, oriented HEENT: . Normocephalic, atraumatic RESPIRATORY: . Clear to auscultation bilaterally CARDIOVASCULAR: . Normal rate, normal S1, S2 ABDOMEN: . Soft, nontender, nondistended EXTREMITIES: . Right knee wrapped in surgical dressing, range of motion limited secondary to surgery LABORATORY DATA: Please see below. ASSESSMENT/PLAN: s/p Right Total Knee Arthroplasty Pain mgmt, DVT Prophylaxis as per Ortho Hx of CAD, CHF Appears euvolemic Cont Coreg, Torsemide, Statin ASA on hold 2/2 above--to be continued as per Ortho Hypertension, stable Continue Coreg, torsemide Hypothyroidism Continue levothyroxine Dyslipidemia Continue atorvastatin Restless leg syndrome Continue ropinirole GERD Continue Protonix Iron deficiency anemia Continue iron supplementation Depression Continue Paxil, Depakote DVT prophylaxis As per orthopedic service Vital Signs/I&O Vital Signs Date Time Temp Pulse Resp B/P (MAP) Pulse Ox O2 Delivery O2 Flow Rate FiO2 08/18/17 16:55 82 16 152/66 (94) 100 Nasal Cannula 2 08/18/17 16:39 97.3 I&O- Last 24 Hours up to 6 AM 08/19/17 06:00 Output Total 325 ml Balance -325 ml Laboratory Data CBC/BMP Laboratory Tests 08/18/17 13:20 Allergies Coded Allergies: Doxycycline (Unverified Allergy, Intermediate, HIVES, 08/18/17) Hydroxyzine (Verified Allergy, Unknown, 08/12/17) Home Medications Scheduled Aripiprazole (Abilify) 5 Mg Tab, 5 MG PO DAILY, (Reported) Ascorbic Acid (Vitamin C) 500 Mg Tab, 500 MG PO DAILY, (Reported) Aspirin (Aspirin EC) 81 Mg Tabec, 81 MG PO DAILY, (Reported) Atorvastatin Calcium (Atorvastatin Calcium) 40 Mg Tab, 40 MG PO QHS, (Reported) Carvedilol (Carvedilol) 6.25 Mg Tab, 3.125 MG PO BID, #180 (Reported) Conjugated Estrogens (Premarin) 1 Dose/30 Gm Cr, 1 DOSE PV QHS, (Reported) Divalproex Sodium (Depakote ER) 500 Mg Tab, 500 MG PO DAILY, (Reported) Ferrous Sulfate (Ferrous Sulfate) 325 Mg Tab, 325 MG PO DAILY, (Reported) Folic Acid (Folic Acid) 1 Mg Tab, 1 MG PO DAILY, (Reported) Levothyroxine Sodium (Synthroid) 137 Mcg Tab, 137 MCG PO DAILY, (Reported) Pantoprazole Sodium (Pantoprazole Sodium) 20 Mg Tab, 20 MG PO DAILY, (Reported) Paroxetine (Paroxetine HCl) 15 Mg Halftab, 30 MG PO DAILY, #30 (Reported) Potassium Chloride (Klor-Con M10) 10 Meq Tabcr, 10 MEQ PO DAILY, (Reported) Ropinirole Hydrochloride (Ropinirole HCl) 1 Mg Tab, 1 MG PO QHS, (Reported) Torsemide (Torsemide) 20 Mg Tab, 20 MG PO BID, (Reported) Trazodone HCl (Trazodone HCl) 25 Mg Halftab, 50 MG PO QHS, (Reported) Scheduled PRN Docusate Sodium (Docusate Sodium) 100 Mg Cap, 100 MG PO DAILY PRN for BOWEL CARE /CONSTIPATION, (Reported) Loratadine (Claritin) 10 Mg Tab, 10 MG PO DAILY PRN for ALLERGY SYMPTOMS, #30 Oxycodone/Acetaminophen (Percocet 10-325 mg) 1 Tab Tab, 1 TAB PO Q4HP PRN for PAIN, (Reported) ANAND KENNEY MD Aug 18, 2017 17:07
[2017-08-18] MEDS: ATORVASTATIN 20 MG TAB PO SCH (21:04)
[2017-08-18] MEDS: rOPINIRole 1MG TAB PO SCH (21:04)
[2017-08-18] MEDS: CARVedilol 3.125 MG TAB PO SCH (21:05)
[2017-08-19] VITALS (7 sets, daily range): BP systolic 95–135; BP diastolic 55–91; O2SAT 93
[2017-08-19] MEDS: LEVOTHYROXINE 137MCG TABLET (0.137MG) PO SCH (05:32)
[2017-08-19 06:39] LABS: MEAN CORPUSCULAR HEMOGLOBIN 28.9 pg (27.0-33.0); MEAN CORPUSCULAR HGB CONC 31.3 g/dl (32.0-36.5); MEAN CORPUSCULAR VOLUME 92.5 fl (80.0-96.0); RED CELL DISTRIBUTION WIDTH 16.7 % (11.5-14.5); WHITE BLOOD COUNT 9.6 10^3/uL (4.0-10.0)
[2017-08-19] MEDS ORDERED: PERCOCET 5MG/325MG TAB PO PRN (07:00)
[2017-08-19] MEDS ORDERED: ONDANSETRON 4 MG TAB (S0181) PO PRN (07:00)
[2017-08-19 07:08] LABS: ALBUMIN 2.6 GM/DL (3.2-5.2); ALBUMIN/GLOBULIN RATIO 0.81 (1.00-1.93); ALKALINE PHOSPHATASE 76 U/L (45-117); ALT/SGPT 15 U/L (12-78); ANION GAP 4 MEQ/L (8-16); AST/SGOT 15 U/L (15-37); BILIRUBIN,TOTAL 0.4 MG/DL (0.2-1.0); BLOOD UREA NITROGEN 8 MG/DL (7-18); CALCIUM LEVEL 8.2 MG/DL (8.8-10.2); CARBON DIOXIDE LEVEL 33 MEQ/L (21-32); CHLORIDE LEVEL 102 MEQ/L (98-107); CREATININE FOR GFR 0.47 MG/DL (0.55-1.02); GLOMERULAR FILTRATION RATE > 60.0 (>45); GLUCOSE, FASTING 129 MG/DL (80-110); MAGNESIUM LEVEL 1.7 MG/DL (1.8-2.4); POTASSIUM SERUM 4.2 MEQ/L (3.5-5.1); SODIUM LEVEL 139 MEQ/L (136-145); TOTAL PROTEIN 5.8 GM/DL (6.4-8.2)
[2017-08-19] MEDS ORDERED: MAG SULF 1GM/100ML (MAG RUN) 1 GM in APPROPRIATE DILUENT 1 EA IV ONE (07:30)
[2017-08-19] MEDS: PERCOCET 5MG/325MG TAB PO PRN ×3 (07:45→16:32)
--- NOTE | 2017-08-19 08:17 | REP ---
Right knee two views postoperative study: There is a total knee arthroplasty with the components tightly applied and in satisfactory positions alignment. Skin lionel are incidentally noted. Signed by Romeo Calabrese MD 08/19/2017 08:09 A
[2017-08-19] MEDS ORDERED: LIDOCAINE 1% MDV 20ML VIAL ONE (09:00)
[2017-08-19] MEDS ORDERED: ROPIvacaine 0.5% 30 ML INJECTION (J2795) ONE (09:00)
[2017-08-19] MEDS ORDERED: EPINEPHrine INJ 1 MG/ML 1ML AMP ONE (09:00)
[2017-08-19] MEDS: MOM 30ML SUSPENSION UDC PO SCH (09:19)
[2017-08-19] MEDS: DIVALPROEX 500MG *ER* TAB PO SCH (09:20)
[2017-08-19] MEDS: TORSEMIDE 20 MG TAB PO SCH ×2 (09:20→16:31)
[2017-08-19] MEDS: CARVedilol 3.125 MG TAB PO SCH ×2 (09:20→20:41)
[2017-08-19] MEDS: MIRALAX *UNIT DOSE* 17GM PACKET PO SCH (09:20)
[2017-08-19] MEDS: FOLIC ACID 1 MG TAB PO SCH (09:21)
[2017-08-19] MEDS: SENOKOT S TAB PO SCH ×2 (09:21→20:40)
[2017-08-19] MEDS: PARoxetine 10MG TABLET PO SCH (09:21)
[2017-08-19] MEDS: FERROUS SULFATE 325MG TAB PO SCH (09:21)
[2017-08-19] MEDS: PANTOPRAZOLE 20 MG TAB PO SCH (09:21)
[2017-08-19] MEDS: ASCORBIC ACID 500 MG TAB PO SCH (09:21)
[2017-08-19] MEDS: POTASSIUM CHLORIDE 10 MEQ SR TABLET PO SCH (09:22)
--- NOTE | 2017-08-19 09:27 | RO ---
DATE OF PROCEDURE: 08/18/2017 PREPROCEDURE DIAGNOSIS: Right knee rheumatoid/degenerative arthritis. POSTPROCEDURE DIAGNOSIS: Right knee rheumatoid/degenerative arthritis. PROCEDURE: Right total knee arthroplasty using a size 2.5 femoral component, size 2 tibial tray with a 10 mm rotating platform polyethylene insert, and a 32 mm polyethylene button. All components were cemented. The prosthesis made by cruciate retaining PFC knee made by [employer]. SURGEON: Dr. Russ Macdonald. APARTMENT PROPERTY MANAGER: Mr. Jerod Silva. ANESTHESIA: Spinal with right femoral nerve block. COMPLICATIONS: None. SPECIMENS: The joint surface. FINDINGS: She had extensive degenerative change throughout the knee especially in the lateral femoral condyle where there is loose unstable cartilage subchondral bone plate. Her cartilage noted right down to the subchondral bone plate. ESTIMATED BLOOD LOSS: PROCEDURE: Antibiotics were given intravenously preoperatively and then successful right femoral nerve block and spinal anesthetic was induced, Rollins catheter placed. Tourniquet was placed on the right upper thigh and not inflated. The right lower extremity was then carefully prepped and draped in the usual sterile fashion then elevated. Then after appropriate time out, the tourniquet was inflated. A longitudinal incision was then made for medial parapatellar arthrotomy to the knee. Bovie cautery was used to coagulate crossing vessels. Subperiosteal dissection along the proximal medial portion of the tibia was performed as well as proximal lateral tibial plateau. We then managed to peggy the patella and flex the knee. ACL was debrided. Drill was placed down the center of the femoral canal. Distal femoral cutting block was then applied set at 5 degree valgus cut at 10 mm resection level for a right knee. It was pinned into position. Distal femoral cut performed. The AP sizer jig measured for a size 2.5 prosthesis which was then pinned into position, with 3 degree external rotation block and then the 4-in-1 block applied. The anterior posterior chamfer cuts were performed making sure we took care to not damage the surrounding soft tissues. I then exposed the proximal tibia and used the extramedullary jesús to ensure that we were parallel to the mechanical axis. We referenced off the medial tibial condyle set at 4 mm resection level. Block was pinned into position then secondary check with extramedullary jesús showed that we appear to be parallel to the mechanical axis of the tibia. The proximal tibial osteotomy was then performed. We then placed alignment ocean lifeguard specialist medially. We performed a completion lateral meniscectomy, debridement of posterior medial osteophytes then placed the alignment ocean lifeguard specialist laterally and performed a completion medial meniscectomy with debridement of the posterior medial osteophytes. The spacer blocks were then trialed. She was very tight both in extension and flexion, thus I took an addition 2 mm from the proximal tibia after repositioning the retractors and then performed the osteotomy and I sized it again and it was still a bit snug, it was fairly symmetrically however, so I took an additional 2 mm by exposing the proximal tibia again using the retractors and then applying the osteotomy guide and then this time the 10 mm spacer block fit nicely in both flexion and extension with good stability to varus valgus stress testing. I then exposed the proximal tibial size for #2 tray which was pinned into position followed by the reamer and broach and then the polyethylene was applied followed by a femoral trial which fit nicely, brought the knee into extension, everted the patella, performed patellar osteotomy size for a 32 button. The lug holes were drilled. The patellar femoral tracking was anatomic. I then drilled the lug holes for the femur and then removed all the trial components. Mr. Silva mixed the cement on the back table as I prepared the bony surfaces for cementing. He was also critical to the success of the procedure by helping to manipulate the knee and apply appropriate soft tissue retraction, help to close the wound and many other tasks to allow me to perform the operation smoothly and efficiently. Exparel was injected in the periosteum around the femur and the posterior capsule and then after all the bony surfaces were thoroughly dried, I cemented the tibial tray, removed excess cement, placed the polyethylene, cemented the femoral component, removed excess cement, brought the knee into extension, cemented the patellar button, removed excess cement, held this position until the cement had hardened as we copiously pulsatile lavage irrigated out the knee joint while we waited. Tranexamic acid was applied and we began closing our arthrotomy with two interrupted #1 PDS sutures in the apex and one medial parapatellar stitch. The rest of the Exparel was placed in the capsular tissues and then a running #1 Stratafix used to close the capsule and then the tourniquet was released. We irrigated again between layers, closed the deep subdermal tissues with interrupted #2 PDS sutures, skin was closed with lionel covered by Adaptic dry sterile bulky dressing. She was then transferred to the recovery room in stable condition. There were no intraoperative complications. cc: Russ Macdonald
--- NOTE | 2017-08-19 12:52 | IPNPDOC ---
Text Note Date of Service The patient was seen on 08/19/17. NOTE Subjective: Patient is a 61 year old female with a PMHx of HTN, DLP, CAD, CHF, Hypothyroidism, Megaloblastic anemia, Osteoporosis, RA, Depression and Insomnia who presented to [facility] for an elective right total knee replacement. Patient was seen and examined at the bedside. Currently she notes that she is having mild pain, but is tolerating it. She will start physical therapy this morning. Objective: Vitals (See below) General: Lying in bed, no acute distress, comfortable, AAOx3 HEENT: NC, AT CVS: RRR, +S1S2 Lungs: Fair air entry b/l, -w/r/r Abdomen: Soft, ND, NT Extremities: - Edema, - Calf tenderness, R knee in dressing Assessment and plan: s/p Right Total Knee Arthroplasty - Pain control and anticoagulation for DVT prophylaxis as per primary surgical team Hypomagnesemia - will supplement CAD - c/w Carvedilol, Atorvastatin - to have ASA restarted; will discuss with orthopedic surgery Compensated CHF - no evidence of exacerbation at this time - No ECHO report available - c/w Carevedilol, Torsemide and Atorvastatin Hypertension, stable - BP well controlled - c/w Carvedilol and Torsemide Hypothyroidism - c/w Levothyroxine DLP - c/w Atorvastatin RLS - c/w Ropinirole GERD - c/w Protonix Iron deficiency anemia / Normocytic anemia - Hg appears to be at baseline - c/w iron supplementation Depression - c/w Paxil and Depakote DVT prophylaxis - As per primary team Benoit MCDANIEL, I+O VSBenoit, I+O Laboratory Tests 08/18/17 13:20 08/19/17 06:18 Red Blood Count 3.46 L, Mean Corpuscular Volume 92.5, Mean Corpuscular Hemoglobin 28.9, Mean Corpuscular Hemoglobin Concent 31.3 L, Red Cell Distribution Width 16.7 H 08/19/17 06:19 Calcium Level 8.2 L, Aspartate Amino Transf (AST/SGOT) 15, Alanine Aminotransferase (ALT/SGPT) 15, Alkaline Phosphatase 76, Total Bilirubin 0.4, Total Protein 5.8 L, Albumin 2.6 L Vital Signs Date Time Temp Pulse Resp B/P (MAP) Pulse Ox O2 Delivery O2 Flow Rate FiO2 9/27/17 12:21 14 08/19/17 09:20 104 135/65 08/19/17 08:00 99.2 Room Air 08/19/17 07:35 90 08/19/17 03:30 2.0 I&O- Last 24 Hours up to 6 AM 08/20/17 06:00 Intake Total 150 ml Output Total 700 ml Balance -550 ml KARLA MAK MD Aug 19, 2017 12:52
[2017-08-19] MEDS ORDERED: WARFARIN SOD 5 MG TAB PO ONE (17:00)
[2017-08-19] MEDS: rOPINIRole 1MG TAB PO SCH (20:40)
[2017-08-19] MEDS: ATORVASTATIN 20 MG TAB PO SCH (20:40)
[2017-08-20] MEDS: PERCOCET 5MG/325MG TAB PO PRN (04:03)
[2017-08-20] MEDS: LEVOTHYROXINE 137MCG TABLET (0.137MG) PO SCH (05:53)
[2017-08-20 06:00] VITALS: BP 110/68
[2017-08-20 08:08] LABS: MEAN CORPUSCULAR HEMOGLOBIN 28.3 pg (27.0-33.0); MEAN CORPUSCULAR HGB CONC 31.4 g/dl (32.0-36.5); MEAN CORPUSCULAR VOLUME 90.3 fl (80.0-96.0); RED CELL DISTRIBUTION WIDTH 16.3 % (11.5-14.5); WHITE BLOOD COUNT 9.7 10^3/uL (4.0-10.0)
[2017-08-20 08:23] LABS: INR 2.13
[2017-08-20 08:42] LABS: ANION GAP 5 MEQ/L (8-16); BLOOD UREA NITROGEN 10 MG/DL (7-18); CALCIUM LEVEL 8.9 MG/DL (8.8-10.2); CARBON DIOXIDE LEVEL 32 MEQ/L (21-32); CHLORIDE LEVEL 100 MEQ/L (98-107); CREATININE FOR GFR 0.49 MG/DL (0.55-1.02); GLOMERULAR FILTRATION RATE > 60.0 (>45); GLUCOSE, FASTING 145 MG/DL (80-110); MAGNESIUM LEVEL 2.1 MG/DL (1.8-2.4); POTASSIUM SERUM 3.5 MEQ/L (3.5-5.1); SODIUM LEVEL 137 MEQ/L (136-145)
[2017-08-20 08:49] LABS: ALBUMIN 2.3 GM/DL (3.2-5.2); ALKALINE PHOSPHATASE 81 U/L (45-117); ALT/SGPT 12 U/L (12-78); ANION GAP 5 MEQ/L (8-16); AST/SGOT 15 U/L (15-37); BILIRUBIN,TOTAL 0.3 MG/DL (0.2-1.0); BLOOD UREA NITROGEN 10 MG/DL (7-18); CALCIUM LEVEL 8.6 MG/DL (8.8-10.2); CARBON DIOXIDE LEVEL 32 MEQ/L (21-32); CHLORIDE LEVEL 99 MEQ/L (98-107); GLOMERULAR FILTRATION RATE > 60.0 (>45); GLUCOSE, FASTING 144 MG/DL (80-110); MAGNESIUM LEVEL 2.3 MG/DL (1.8-2.4); POTASSIUM SERUM 3.7 MEQ/L (3.5-5.1); SODIUM LEVEL 136 MEQ/L (136-145); TOTAL PROTEIN 5.6 GM/DL (6.4-8.2)
[2017-08-20] MEDS: PARoxetine 10MG TABLET PO SCH (08:57)
[2017-08-20] MEDS: PANTOPRAZOLE 20 MG TAB PO SCH (08:57)
[2017-08-20] MEDS: CARVedilol 3.125 MG TAB PO SCH ×2 (08:58→21:44)
[2017-08-20] MEDS: FERROUS SULFATE 325MG TAB PO SCH (08:58)
[2017-08-20] MEDS: SENOKOT S TAB PO SCH ×2 (08:58→21:44)
[2017-08-20] MEDS: MOM 30ML SUSPENSION UDC PO SCH (08:59)
[2017-08-20] MEDS: ASCORBIC ACID 500 MG TAB PO SCH (08:59)
[2017-08-20] MEDS: DIVALPROEX 500MG *ER* TAB PO SCH (08:59)
[2017-08-20] MEDS: MIRALAX *UNIT DOSE* 17GM PACKET PO SCH (08:59)
[2017-08-20] MEDS: TORSEMIDE 20 MG TAB PO SCH (08:59)
[2017-08-20] MEDS ORDERED: INFLUENZA QUADRIVALENT PF VACCINE 0.5ML SYRINGE (90686) IM ONE (09:00)
[2017-08-20] MEDS: POTASSIUM CHLORIDE 10 MEQ SR TABLET PO SCH (09:00)
[2017-08-20] MEDS: FOLIC ACID 1 MG TAB PO SCH (09:00)
[2017-08-20] MEDS ORDERED: traMADol 50 MG TAB PO PRN (10:00)
[2017-08-20] MEDS: traMADol 50 MG TAB PO PRN ×2 (11:44→17:07)
[2017-08-20 14:00] VITALS: BP 116/70
--- NOTE | 2017-08-20 14:23 | IPNPDOC ---
Text Note Date of Service The patient was seen on 08/20/17. NOTE Subjective: Patient is a 61 year old female with a PMHx of HTN, DLP, CAD, CHF, Hypothyroidism, Megaloblastic anemia, Osteoporosis, RA, Depression and Insomnia who presented to [facility] for an elective right total knee replacement. Patient was seen and examined at the bedside. She notes that she is still having some pain and difficulty with ambulation. She notes that she has been urinating excessively and that her diuretic frequency should only be once daily. Objective: Vitals (See below) General: Lying in bed, no acute distress, comfortable, AAOx3 HEENT: NC, AT CVS: RRR, +S1S2 Lungs: Fair air entry b/l, -w/r/r Abdomen: Soft, ND, NT Extremities: - Edema, - Calf tenderness, R knee in dressing Assessment and plan: s/p Right Total Knee Arthroplasty - Pain control and anticoagulation for DVT prophylaxis as per primary surgical team s/p Hypomagnesemia CAD - c/w Carvedilol, Atorvastatin - to have ASA restarted; will discuss with orthopedic surgery Compensated CHF - no evidence of exacerbation at this time - No ECHO report available - c/w Carevedilol and Atorvastatin - Will adjust Torsemide dosing to once in the evening Hypertension, stable - BP well controlled - c/w Carvedilol and Torsemide Hypothyroidism - c/w Levothyroxine DLP - c/w Atorvastatin RLS - c/w Ropinirole GERD - c/w Protonix Iron deficiency anemia / Normocytic anemia - Hg appears to be at baseline - c/w iron supplementation Depression - c/w Paxil and Depakote DVT prophylaxis - As per primary team Benoit MCDANIEL I+O Benoit MCDANIEL I+O Laboratory Tests 08/20/17 07:40 Red Blood Count 3.60 L, Mean Corpuscular Volume 90.3, Mean Corpuscular Hemoglobin 28.3, Mean Corpuscular Hemoglobin Concent 31.4 L, Red Cell Distribution Width 16.3 H, Calcium Level 8.9, Aspartate Amino Transf (AST/SGOT) 15, Alanine Aminotransferase (ALT/SGPT) 12, Alkaline Phosphatase 81, Total Bilirubin 0.3, Total Protein 5.6 L, Albumin 2.3 L Vital Signs Date Time Temp Pulse Resp B/P (MAP) Pulse Ox O2 Delivery O2 Flow Rate FiO2 08/20/17 12:14 14 08/20/17 08:58 83 106/63 08/20/17 07:58 Room Air 08/20/17 06:00 96.9 95 08/20/17 04:33 1.0 I&O- Last 24 Hours up to 6 AM 08/21/17 06:00 Intake Total 600 ml Output Total 1300 ml Balance -700 ml KARLA MAK MD Aug 20, 2017 14:23
[2017-08-20] MEDS ORDERED: TORSEMIDE 20 MG TAB PO SCH (21:00)
[2017-08-20] MEDS: rOPINIRole 1MG TAB PO SCH (21:44)
[2017-08-20] MEDS: ATORVASTATIN 20 MG TAB PO SCH (21:45)
[2017-08-20 22:00] VITALS: BP 137/65
[2017-08-20 22:21] VITALS: O2SAT 93
[2017-08-21 06:00] VITALS: BP 158/77
[2017-08-21] MEDS: LEVOTHYROXINE 137MCG TABLET (0.137MG) PO SCH (06:14)
[2017-08-21 07:14] LABS: MEAN CORPUSCULAR HGB CONC 32.4 g/dl (32.0-36.5); MEAN CORPUSCULAR VOLUME 89.4 fl (80.0-96.0); RED CELL DISTRIBUTION WIDTH 16.3 % (11.5-14.5); WHITE BLOOD COUNT 9.2 10^3/uL (4.0-10.0)
[2017-08-21 07:21] LABS: INR 1.55
[2017-08-21 07:37] LABS: ALBUMIN 2.1 GM/DL (3.2-5.2); ALBUMIN/GLOBULIN RATIO 0.64 (1.00-1.93); ALKALINE PHOSPHATASE 71 U/L (45-117); ALT/SGPT 11 U/L (12-78); ANION GAP 5 MEQ/L (8-16); AST/SGOT 13 U/L (15-37); BILIRUBIN,TOTAL 0.4 MG/DL (0.2-1.0); BLOOD UREA NITROGEN 9 MG/DL (7-18); CALCIUM LEVEL 8.4 MG/DL (8.8-10.2); CARBON DIOXIDE LEVEL 32 MEQ/L (21-32); CHLORIDE LEVEL 101 MEQ/L (98-107); CREATININE FOR GFR 0.37 MG/DL (0.55-1.02); GLOMERULAR FILTRATION RATE > 60.0 (>45); GLUCOSE, FASTING 83 MG/DL (80-110); MAGNESIUM LEVEL 2.2 MG/DL (1.8-2.4); POTASSIUM SERUM 3.5 MEQ/L (3.5-5.1); SODIUM LEVEL 138 MEQ/L (136-145); TOTAL PROTEIN 5.4 GM/DL (6.4-8.2)
[2017-08-21] MEDS ORDERED: COUM2.5T17 PO (08:26)
[2017-08-21] MEDS ORDERED: OXYC-141 PO (08:26)
[2017-08-21] MEDS: SENOKOT S TAB PO SCH (09:00)
[2017-08-21] MEDS: MOM 30ML SUSPENSION UDC PO SCH (09:00)
[2017-08-21] MEDS: MIRALAX *UNIT DOSE* 17GM PACKET PO SCH (09:00)
[2017-08-21] MEDS: POTASSIUM CHLORIDE 10 MEQ SR TABLET PO SCH (09:49)
[2017-08-21] MEDS: DIVALPROEX 500MG *ER* TAB PO SCH (09:50)
[2017-08-21] MEDS: FERROUS SULFATE 325MG TAB PO SCH (09:50)
[2017-08-21] MEDS: PARoxetine 10MG TABLET PO SCH (09:50)
[2017-08-21] MEDS: PANTOPRAZOLE 20 MG TAB PO SCH (09:50)
[2017-08-21] MEDS: ASCORBIC ACID 500 MG TAB PO SCH (09:50)
[2017-08-21 09:51] VITALS: BP 158/77
[2017-08-21] MEDS: FOLIC ACID 1 MG TAB PO SCH (09:51)
[2017-08-21] MEDS: CARVedilol 3.125 MG TAB PO SCH (09:51)
[2017-08-21] MEDS: traMADol 50 MG TAB PO PRN (12:26)
--- NOTE | 2017-08-21 13:51 | IPNPDOC ---
Text Note Date of Service The patient was seen on 08/21/17. NOTE Subjective: Patient is a 61 year old female with a PMHx of HTN, DLP, CAD, CHF, Hypothyroidism, Megaloblastic anemia, Osteoporosis, RA, Depression and Insomnia who presented to [facility] for an elective right total knee replacement. Patient was seen and examined at the bedside. She notes that she is looking forward to get home and continue working with physical therapy. She notes that she has mild pain, but is tolerable. Objective: Vitals (See below) General: Lying in bed, no acute distress, comfortable, AAOx3 HEENT: NC, AT CVS: RRR, +S1S2 Lungs: Fair air entry b/l, -w/r/r Abdomen: Soft, ND, NT Extremities: - Edema, - Calf tenderness, R knee in dressing Assessment and plan: s/p Right Total Knee Arthroplasty - Pain control and anticoagulation for DVT prophylaxis as per primary surgical team s/p Hypomagnesemia CAD - c/w Carvedilol, Atorvastatin - Discussed with orthopedic surgery about restarting ASA; Will restart after 30 days of Coumadin Compensated CHF - no evidence of exacerbation at this time - No ECHO report available - c/w Carevedilol, Atorvastatin and Adjusted dose of Torsemide Hypertension, stable - BP well controlled - c/w Carvedilol and Torsemide Hypothyroidism - c/w Levothyroxine DLP - c/w Atorvastatin RLS - c/w Ropinirole GERD - c/w Protonix Iron deficiency anemia / Normocytic anemia - Hg appears to be at baseline - c/w iron supplementation Depression - c/w Paxil and Depakote DVT prophylaxis - As per primary team Benoit MCDANIEL, I+O Benoit MCDANIEL I+O Laboratory Tests 08/21/17 06:20 Red Blood Count 3.21 L, Mean Corpuscular Volume 89.4, Mean Corpuscular Hemoglobin 29.0, Mean Corpuscular Hemoglobin Concent 32.4, Red Cell Distribution Width 16.3 H, Calcium Level 8.4 L, Aspartate Amino Transf (AST/SGOT ) 13 L, Alanine Aminotransferase (ALT/SGPT) 11 L, Alkaline Phosphatase 71, Total Bilirubin 0.4, Total Protein 5.4 L, Albumin 2.1 L Vital Signs Date Time Temp Pulse Resp B/P (MAP) Pulse Ox O2 Delivery O2 Flow Rate FiO2 08/21/17 12:26 18 08/21/17 09:51 78 158/77 08/21/17 06:00 98.4 96 Room Air 08/20/17 04:33 1.0 I&O- Last 24 Hours up to 6 AM 08/22/17 06:00 Intake Total 240 ml Balance 240 ml KARLA MAK MD Aug 21, 2017 13:51
--- NOTE | 2017-08-25 15:22 | DSES ---
DATE OF ADMISSION: 08/18/2017 DATE OF DISCHARGE: 08/21/2017 ADMISSION DIAGNOSIS: Osteoarthritis, right knee. ATTENDING PHYSICIAN; Dr. Hema Macdonald OTHER DIAGNOSES: 1. Hypertension. 2. Coronary artery disease. 3. Congestive heart failure. 4. Depression. 5. Hypothyroidism. 6. Elevated lipids. 7. Rheumatoid arthritis. 8. Insomnia. 9. Megaloblastic anemia. 10. Osteoporosis. DISCHARGE DIAGNOSIS: Osteoarthritis, right knee, status post right total knee arthroplasty. OPERATION PERFORMED: Right total knee arthroplasty. HISTORY: This is a pleasant 61-year-old female with progressively worsening right knee pain and stiffness. She failed to improve with conservative management. She was admitted for elective knee replacement on the right side. HOSPITAL COURSE: The patient was admitted on day of surgery and underwent a right total knee arthroplasty, which was uneventful. She did well in the postoperative period, and her hospital course was without complication. She was up with physical therapy per their protocol, and her pain was controlled. On day of discharge she was doing well, weightbearing as tolerated on the right lower extremity. She will move her right knee to prevent stiffness. She will use adjusted-dose Coumadin and thromboembolic deterrent (LUIS MANUEL) stockings for 30 days postoperative for deep vein thrombosis (DVT) prophylaxis. She will resume her preoperative medications and diet. She will use oral pain medications for pain control. She was given instructions to include, but not limited to, wound monitoring and activity limitations. Please refer to the medical record for further details.
== END 2017-08-21 13:15 | disposition home health service (06) | DRG 470 ==
LOC: M OR 08-18 12:59 → M MS5PR 08-18 18:39
PROVIDERS: ADMIT Orthopaedic Surgery; ATTEND Orthopaedic Surgery
PROC: 0SRC0J9 Replacement of Right Knee Joint with Synthetic Substitute, Cemented, Open Approach (ICD-10-PCS; principal; 2017-08-18 16:15)
DX: M17.11 Unilateral primary osteoarthritis, right knee (principal); I13.0 Hypertensive heart and chronic kidney disease with heart failure and stage 1 through stage 4 chronic kidney disease, or unspecified chronic kidney disease; I50.9 Heart failure, unspecified; N18.3 Chronic kidney disease, stage 3 (moderate); Z79.899 Other long term (current) drug therapy; K21.9 Gastro-esophageal reflux disease without esophagitis; E03.9 Hypothyroidism, unspecified; E78.5 Hyperlipidemia, unspecified; G47.33 Obstructive sleep apnea (adult) (pediatric); G25.81 Restless legs syndrome; Z96.642 Presence of left artificial hip joint; M51.36 Other intervertebral disc degeneration, lumbar region; E87.5 Hyperkalemia; Z96.641 Presence of right artificial hip joint; Z95.2 Presence of prosthetic heart valve; D50.9 Iron deficiency anemia, unspecified; I25.10 Atherosclerotic heart disease of native coronary artery without angina pectoris; F32.9 Major depressive disorder, single episode, unspecified

== ENCOUNTER → 2017-08-12 | Outpatient (CLI) | payer MEDICARE, MEDICAID ==
[~2017-08-12] MED LIST changes: +BETA115CR; +CETI10TA; +COUM2.5T17 PO; +ESTR62CR PV; +GABA-279; +METH4PACK; +NYST10CR; +OXYC-141 PO; +RANI150T; +ZITH250T PO
[2017-08-12 12:36] LABS: MEAN CORPUSCULAR HEMOGLOBIN 30.3 pg (27.0-33.0); MEAN CORPUSCULAR HGB CONC 33.3 g/dl (32.0-36.5); MEAN CORPUSCULAR VOLUME 90.8 fl (80.0-96.0); RED CELL DISTRIBUTION WIDTH 16.3 % (11.5-14.5); WHITE BLOOD COUNT 5.2 K/mm3 (4.0-10.0)
[2017-08-12 12:43] LABS: INR 0.98
--- NOTE | 2017-08-12 13:26 | REP ---
PA and lateral chest: Comparison is 07/18/2017. The lung hdz are clear and unchanged. Cardiac size is upper normal, unchanged. There is a fixed hiatal hernia, unchanged. The shelley, mediastinum, and bony thorax are unremarkable and unchanged except for a right shoulder arthroplasty, unchanged. Impression: Essentially negative chest. There is no interval change. There is a hiatal hernia and right shoulder arthroplasty, unchanged. Signed by Romeo Calabrese MD 08/12/2017 12:55 P
[2017-08-12 13:57] LABS: ALBUMIN/GLOBULIN RATIO 0.94 (1.00-1.93); ALKALINE PHOSPHATASE 84 U/L (45-117); ALT/SGPT 15 U/L (12-78); ANION GAP 6 MEQ/L (8-16); AST/SGOT 13 U/L (15-37); BILIRUBIN,TOTAL 0.3 MG/DL (0.2-1.0); BLOOD UREA NITROGEN 16 MG/DL (7-18); CALCIUM LEVEL 8.5 MG/DL (8.8-10.2); CARBON DIOXIDE LEVEL 30 MEQ/L (21-32); CHLORIDE LEVEL 108 MEQ/L (98-107); CREATININE FOR GFR 0.67 MG/DL (0.55-1.02); GLOMERULAR FILTRATION RATE > 60.0 (>45); GLUCOSE, FASTING 85 MG/DL (80-110); SODIUM LEVEL 144 MEQ/L (136-145); TOTAL PROTEIN 6.2 GM/DL (6.4-8.2)
[2017-08-12 13:59] LABS: POTASSIUM SERUM 5.4 MEQ/L (3.5-5.1)
--- NOTE | 2017-08-12 19:00 | ECGEPIP ---
Stationary ECG Study [facility] Test Date: 2017-08-12 Pat Name: TEDDY GOODWIN Department: Room: - Gender: F [employer] Officer: [facility] : 1955 Requested By: Russ Garrido Order Number: [id number] Reading MD: Jarett Gore Measurements Intervals [place] Rate: 66 P: 66 TX: 181 QRS: 13 QRSD: 79 T: 32 QT: 384 QTc: 403 Interpretive Statements Normal sinus rhythm Left atrial enlargement Generally low QRS voltages Anterior wall myocardial infarction of indeterminate age Nonspecific repolarization abnormalities No significant change from 04/22/2017 Electronically Signed On 08-12-2017 19:00:11 EDT by Jarett Gore
== END ==
LOC: M ADMPAT 09:42
PROVIDERS: ATTEND Orthopaedic Surgery
DX: Z01.818 Encounter for other preprocedural examination (principal); K21.9 Gastro-esophageal reflux disease without esophagitis; E03.9 Hypothyroidism, unspecified; G43.909 Migraine, unspecified, not intractable, without status migrainosus; I25.10 Atherosclerotic heart disease of native coronary artery without angina pectoris; F41.9 Anxiety disorder, unspecified; F32.9 Major depressive disorder, single episode, unspecified; M06.9 Rheumatoid arthritis, unspecified; I51.9 Heart disease, unspecified

== ENCOUNTER → 2017-08-24 | Outpatient (REF) | payer MEDICARE, MEDICAID ==
[2017-08-24 12:58] LABS: INR 2.35
== END ==
LOC: M SHH 12:40
PROVIDERS: ATTEND Nurse Practitioner Family
DX: Z79.899 Other long term (current) drug therapy (principal)

== ENCOUNTER → 2017-08-27 | Outpatient (REF) | payer MEDICARE, MEDICAID ==
[2017-08-27 12:42] LABS: INR 1.39
== END ==
LOC: M SHH 11:12
PROVIDERS: ATTEND Nurse Practitioner Family
DX: Z79.01 Long term (current) use of anticoagulants (principal)

== ENCOUNTER → 2017-08-31 | Outpatient (REF) | payer MEDICARE, MEDICAID ==
[2017-08-31 12:06] LABS: INR 1.59
== END ==
LOC: M SHH 11:35
PROVIDERS: ATTEND Nurse Practitioner Family
DX: Z79.01 Long term (current) use of anticoagulants (principal)

== ENCOUNTER → 2017-09-03 | Outpatient (REF) | payer MEDICARE, MEDICAID ==
[2017-09-03 14:31] LABS: INR 1.34
== END ==
LOC: M SHH 11:55
PROVIDERS: ATTEND Nurse Practitioner Family
DX: Z51.81 Encounter for therapeutic drug level monitoring (principal); Z79.01 Long term (current) use of anticoagulants

== ENCOUNTER → 2017-09-07 | Outpatient (REF) | payer MEDICARE, MEDICAID ==
[2017-09-07 13:21] LABS: INR 1.3
== END ==
LOC: M SHH 12:48
PROVIDERS: ATTEND Nurse Practitioner Family
DX: Z51.81 Encounter for therapeutic drug level monitoring (principal); Z79.01 Long term (current) use of anticoagulants

== ENCOUNTER → 2017-09-10 | Outpatient (REF) | payer MEDICARE, MEDICAID | LOC: M SHH 15:30 | PROVIDERS: ATTEND Nurse Practitioner Family | DX: Z51.81 Encounter for therapeutic drug level monitoring (principal); Z79.01 Long term (current) use of anticoagulants ==

== ENCOUNTER → 2017-09-11 | Outpatient (REF) | payer MEDICARE, MEDICAID ==
[2017-09-11 10:33] LABS: INR 1.54
== END ==
LOC: M SHH 10:13
PROVIDERS: ATTEND Nurse Practitioner Family
DX: Z51.81 Encounter for therapeutic drug level monitoring (principal); Z79.01 Long term (current) use of anticoagulants

== ENCOUNTER → 2017-09-14 | Outpatient (REF) | payer MEDICARE, MEDICAID ==
[2017-09-14 12:18] LABS: INR 2.22
== END ==
LOC: M SHH 11:42
PROVIDERS: ATTEND Nurse Practitioner Family
DX: Z51.81 Encounter for therapeutic drug level monitoring (principal); Z79.01 Long term (current) use of anticoagulants

== ENCOUNTER 2017-10-03 13:51 | Emergency (ER) | payer MEDICARE, MEDICAID ==
[~2017-10-03] VITALS: Ht 162.6 cm; Wt 69.5 kg
[~2017-10-03 13:51] MED LIST changes: -CETI10TA; -GABA-279; -METH4PACK; -RANI150T; -ZITH250T PO
[2017-10-03] MEDS ORDERED: RANI150T (14:19)
[2017-10-03] MEDS ORDERED: CETI10TA (14:19)
[2017-10-03] MEDS ORDERED: METH4PACK (14:19)
[2017-10-03] MEDS ORDERED: GABA-279 (14:19)
--- NOTE | 2017-10-03 15:13 | REP ---
Chest two views HISTORY: Cough Comparison: 08/12/1970 The lungs are clear. The heart is upper limits of normal in size. The pulmonary vasculature is normal in appearance. A hiatal hernia is present. The patient is status post right shoulder arthroplasty. The bony structure is intact. IMPRESSION: No acute disease. Signed by Bayron Gonzalez MD 10/03/2017 03:04 P
[2017-10-03 15:42] LABS: INR 0.87
[2017-10-03 15:52] LABS: BASO % 0.1 % (0.0-1.0); IMMATURE GRANULOCYTE % 0.5 % (0-0); LYMPH # 1.2 10^3/uL (1.5-4.5); LYMPH % 13.8 % (24.0-44.0); MEAN CORPUSCULAR HEMOGLOBIN 28.7 pg (27.0-33.0); MEAN CORPUSCULAR HGB CONC 31.7 g/dl (32.0-36.5); MEAN CORPUSCULAR VOLUME 90.5 fl (80.0-96.0); MONO # 0.3 10^3/uL (0.0-0.8); MONO % 3.7 % (0.0-5.0); NEUTROPHILS # 6.9 10^3/uL (1.8-7.7); NEUTROPHILS % 81.9 % (36.0-66.0); PLATELET COUNT, AUTOMATED 374 10^3/uL (150-450); RED CELL DISTRIBUTION WIDTH 14.1 % (11.5-14.5); WHITE BLOOD COUNT 8.4 10^3/uL (4.0-10.0)
[2017-10-03 15:54] LABS: ANION GAP 6 MEQ/L (8-16); BLOOD UREA NITROGEN 15 MG/DL (7-18); CALCIUM LEVEL 9.7 MG/DL (8.8-10.2); CARBON DIOXIDE LEVEL 30 MEQ/L (21-32); CHLORIDE LEVEL 105 MEQ/L (98-107); CREATININE FOR GFR 0.63 MG/DL (0.55-1.02); GLOMERULAR FILTRATION RATE > 60.0 (>45); GLUCOSE, FASTING 114 MG/DL (80-110); SODIUM LEVEL 141 MEQ/L (136-145)
[2017-10-03 15:58] LABS: POTASSIUM SERUM 5.4 MEQ/L (3.5-5.1)
[2017-10-03 15:58] LABS: ALBUMIN 3.7 GM/DL (3.2-5.2); ALBUMIN/GLOBULIN RATIO 0.82 (1.00-1.93); ALKALINE PHOSPHATASE 107 U/L (45-117); ALT/SGPT 34 U/L (12-78); AST/SGOT 53 U/L (7-37); BILIRUBIN,DIRECT < 0.1 MG/DL (0.0-0.2); BILIRUBIN,TOTAL 0.3 MG/DL (0.2-1.0); TOTAL PROTEIN 8.2 GM/DL (6.4-8.2)
[2017-10-03] MEDS ORDERED: ISOVUE-370 76% 100ML VIAL (Q9967) As Ordered ONE (16:02)
[2017-10-03 16:45] VITALS: BP 151/70
[2017-10-03] MEDS ORDERED: AZITHROMYCIN 250 MG TAB PO ONE (17:00)
[2017-10-03] MEDS ORDERED: ZITH250T PO (17:03)
--- NOTE | 2017-10-04 07:20 | REP ---
CT CHEST WITH CONTRAST: HISTORY: Hemoptysis. CONTRAST: Isovue 370, 75 mL. COMPARISON: 07/31/2017 A diffuse increase in interstitial markings and areas of bronchiectasis are present. There are several intraparenchymal nodules in the lungs that are unchanged compared to the previous study. A 4 mm parenchymal nodule is present in the right upper lobe seen on image #34. 3 and 7 mm parenchymal nodules are present in the right upper lobe seen on image #36. A 4 mm parenchymal nodule is present in the right lower lobe seen on image #53. A 5 mm parenchymal nodule is present in the right lower lobe seen in image #54. A 6 mm parenchymal nodule is present in the right lower lobe seen on image #61. A 4 mm parenchymal nodule is present in the right lower lobe seen on image #73. A 5 mm parenchymal nodule is present in the left upper lobe seen on image #15. A 3 mm parenchymal nodule is present in the left lower lobe seen on image #49. There is no pleural effusion. There are several enlarged mediastinal lymph nodes measuring 1.3 and 2.2 cm in width. Atherosclerotic calcification is present in the thoracic aorta. The heart is upper limits of normal in size. A large hiatal hernia is present. IMPRESSION: 1. There are multiple small parenchymal nodules in the lungs measuring 3 to 7 mm in size that appear unchanged compared to the previous study. 2. Chronic interstitial fibrosis and bronchiectasis. 3. large hiatal hernia. Signed by Bayron Gonzalez MD 10/04/2017 08:11 A
== END 2017-10-03 17:29 | disposition home or self-care (01) ==
LOC: M ED 13:51
DX: J20.9 Acute bronchitis, unspecified (principal); R04.2 Hemoptysis; R91.8 Other nonspecific abnormal finding of lung field; K44.9 Diaphragmatic hernia without obstruction or gangrene; I50.9 Heart failure, unspecified; I51.9 Heart disease, unspecified; I10 Essential (primary) hypertension; E78.5 Hyperlipidemia, unspecified; M06.9 Rheumatoid arthritis, unspecified; F31.9 Bipolar disorder, unspecified; Z95.5 Presence of coronary angioplasty implant and graft; Z87.891 Personal history of nicotine dependence; Z79.899 Other long term (current) drug therapy; Z88.8 Allergy status to other drugs, medicaments and biological substances; Z88.1 Allergy status to other antibiotic agents
CPT/HCPCS: 71020; 71260; 80048; 80076; 85025; 85610; 85730; 93041; 94760; 99284; Q9967

== ENCOUNTER 2018-01-01 16:16 | Emergency (ER) | payer MEDICARE, MEDICAID ==
[2018-01-01 18:09] LABS: INFLUENZA A AMPLIFICATION NEGATIVE (NEGATIVE); INFLUENZA B AMPLIFICATION NEGATIVE (NEGATIVE)
[2018-01-01] MEDS: AZITHROMYCIN 250 MG TAB PO (18:53)
== END 2018-01-01 19:15 | disposition home or self-care (01) ==
LOC: M ED 16:16
DX: J18.9 Pneumonia, unspecified organism (principal); I10 Essential (primary) hypertension; E78.00 Pure hypercholesterolemia, unspecified; I25.2 Old myocardial infarction; E03.9 Hypothyroidism, unspecified; F41.9 Anxiety disorder, unspecified; F32.9 Major depressive disorder, single episode, unspecified; Z85.41 Personal history of malignant neoplasm of cervix uteri; Z87.891 Personal history of nicotine dependence; Z79.899 Other long term (current) drug therapy; Z88.1 Allergy status to other antibiotic agents; Z88.8 Allergy status to other drugs, medicaments and biological substances
CPT/HCPCS: 71046

== ENCOUNTER → 2018-04-15 | Outpatient (CLI) | payer MEDICARE, MEDICAID | LOC: M RAD 10:58 | DX: R91.8 Other nonspecific abnormal finding of lung field (principal); J84.10 Pulmonary fibrosis, unspecified; J47.9 Bronchiectasis, uncomplicated; I70.0 Atherosclerosis of aorta; I25.10 Atherosclerotic heart disease of native coronary artery without angina pectoris; K44.9 Diaphragmatic hernia without obstruction or gangrene | CPT/HCPCS: 71250 ==

== ENCOUNTER → 2018-05-07 | Outpatient (CLI) | payer MEDICARE ==
[2018-05-07 15:42] LABS: INR 1.06; PROTHROMBIN TIME 13.9 SECONDS (12.4-14.5)
== END ==
LOC: M ADMPAT 14:03
DX: Z01.818 Encounter for other preprocedural examination (principal); M17.12 Unilateral primary osteoarthritis, left knee; E03.9 Hypothyroidism, unspecified; Z95.5 Presence of coronary angioplasty implant and graft; I10 Essential (primary) hypertension; E78.5 Hyperlipidemia, unspecified
CPT/HCPCS: 71046

== ENCOUNTER → 2018-05-11 | Outpatient (CLI) | payer MEDICARE | LOC: M RAD 11:52 | DX: J90 Pleural effusion, not elsewhere classified (principal); S22.41XA Multiple fractures of ribs, right side, initial encounter for closed fracture; X58.XXXA Exposure to other specified factors, initial encounter; Y92.9 Unspecified place or not applicable; M85.88 Other specified disorders of bone density and structure, other site | CPT/HCPCS: 71046 ==

== ENCOUNTER → 2018-07-05 | Outpatient (CLI) | payer MEDICARE | LOC: M RAD 14:48 | DX: R59.0 Localized enlarged lymph nodes (principal); K44.9 Diaphragmatic hernia without obstruction or gangrene | CPT/HCPCS: 71250 ==

== ENCOUNTER 2018-07-09 16:26 | Inpatient (IN) | payer MEDICARE, MEDICAID ==
[2018-07-09] MEDS: PERCOCET 5MG/325MG TAB PO (20:21)
[2018-07-09] MEDS ORDERED: DULoxetine 30 MG CAP (CYMBALTA) PO (21:00)
[2018-07-09] MEDS ORDERED: traZODone 50 MG TAB PO (21:00)
[2018-07-09] MEDS ORDERED: rOPINIRole 1MG TAB PO (21:00)
[2018-07-09] MEDS ORDERED: LEVOTHYROXINE 137MCG TABLET (0.137MG) PO (21:00)
[2018-07-09] MEDS ORDERED: NORCO, ANEXSIA 5/325MG TABLET (HYDROcodone/ACETAMINOPHEN) PO (23:45)
[2018-07-10 00:20] LABS: HEMATOCRIT 38.3 % (36.0-47.0); HEMOGLOBIN 11.4 g/dl (12.0-15.5); MEAN CORPUSCULAR HEMOGLOBIN 24.4 pg (27.0-33.0); MEAN CORPUSCULAR HGB CONC 29.8 g/dl (32.0-36.5); MEAN CORPUSCULAR VOLUME 81.8 fl (80.0-96.0); PLATELET COUNT, AUTOMATED 362 10^3/uL (150-450); RED BLOOD COUNT 4.68 10^6/uL (4.00-5.40); RED CELL DISTRIBUTION WIDTH 14.6 % (11.5-14.5)
[2018-07-10 00:21] LABS: INR 1.08; PROTHROMBIN TIME 14.1 SECONDS (12.1-14.4)
[2018-07-10 00:22] LABS: PARTIAL THROMBOPLASTIN TIME 22.6 SECONDS (25.4-37.6)
[2018-07-10 00:31] LABS: ALBUMIN 2.9 GM/DL (3.2-5.2); ALBUMIN/GLOBULIN RATIO 0.81 (1.00-1.93); ALKALINE PHOSPHATASE 103 U/L (45-117); ALT/SGPT 21 U/L (12-78); ANION GAP 7 MEQ/L (8-16); AST/SGOT 15 U/L (7-37); BILIRUBIN,TOTAL 0.2 MG/DL (0.2-1.0); BLOOD UREA NITROGEN 24 MG/DL (7-18); CALCIUM LEVEL 8.8 MG/DL (8.8-10.2); CARBON DIOXIDE LEVEL 30 MEQ/L (21-32); CHLORIDE LEVEL 102 MEQ/L (98-107); CREATININE FOR GFR 0.65 MG/DL (0.55-1.30); GLOMERULAR FILTRATION RATE > 60.0 (>45); GLUCOSE, FASTING 100 MG/DL (70-100); POTASSIUM SERUM 4.2 MEQ/L (3.5-5.1); SODIUM LEVEL 139 MEQ/L (136-145); TOTAL PROTEIN 6.5 GM/DL (6.4-8.2)
[2018-07-10] MEDS ORDERED: MORPHINE 2 MG/ML 1ML SYRINGE (J2270) As Ordered (00:45)
[2018-07-10] MEDS: MORPHINE 4 MG/ML 1ML VIAL/SYRINGE (J2270) IV (00:46)
[2018-07-10] MEDS ORDERED: ALBUTEROL 90 MCG/ACT 8GM HFA INHALER INH (02:00)
[2018-07-10] MEDS ORDERED: ASCORBIC ACID 500 MG TAB PO (09:00)
[2018-07-10] MEDS ORDERED: MIRALAX *UNIT DOSE* 17GM PACKET PO (09:00)
[2018-07-10] MEDS ORDERED: PARoxetine 10MG TABLET PO (09:00)
[2018-07-10] MEDS ORDERED: PANTOPRAZOLE 20 MG TAB PO (09:00)
[2018-07-10] MEDS ORDERED: CARVedilol 6.25 MG TAB PO (09:00)
[2018-07-10] MEDS ORDERED: ATORVASTATIN 20 MG TAB PO (09:00)
[2018-07-10] MEDS ORDERED: CETIRIZINE (ZyrTEC) 10 MG TAB PO (09:00)
[2018-07-10] MEDS ORDERED: SENOKOT S TAB PO (09:00)
[2018-07-10] MEDS ORDERED: predniSONE 10 MG TAB PO (09:00)
[2018-07-10] MEDS ORDERED: DIVALPROEX 500MG *ER* TAB PO (09:00)
[2018-07-10] MEDS ORDERED: FERROUS SULFATE 325MG TAB PO (09:00)
[2018-07-10] MEDS ORDERED: MULTIVITAMINS/MINERALS THERAP 1 TAB PO (09:00)
[2018-07-10] MEDS ORDERED: CYANOCOBALAMIN 500 MCG TAB PO (09:00)
== END 2018-07-10 11:30 | disposition home or self-care (01) | DRG 536 ==
LOC: M ED INP 07-10 00:10 → M ED 16:26
DX: S72.145A Nondisplaced intertrochanteric fracture of left femur, initial encounter for closed fracture (principal); I25.10 Atherosclerotic heart disease of native coronary artery without angina pectoris; Z95.2 Presence of prosthetic heart valve; I25.2 Old myocardial infarction; I10 Essential (primary) hypertension; J45.909 Unspecified asthma, uncomplicated; E03.9 Hypothyroidism, unspecified; F32.9 Major depressive disorder, single episode, unspecified; F41.9 Anxiety disorder, unspecified; K21.9 Gastro-esophageal reflux disease without esophagitis; M06.9 Rheumatoid arthritis, unspecified; W18.30XA Fall on same level, unspecified, initial encounter; Y92.009 Unspecified place in unspecified non-institutional (private) residence as the place of occurrence of the external cause; Z79.899 Other long term (current) drug therapy; Z79.82 Long term (current) use of aspirin; Z88.8 Allergy status to other drugs, medicaments and biological substances; E78.5 Hyperlipidemia, unspecified; Z96.643 Presence of artificial hip joint, bilateral; Z96.611 Presence of right artificial shoulder joint; Z96.651 Presence of right artificial knee joint

== ENCOUNTER 2018-10-04 07:05 | Inpatient (IN) | payer MEDICARE, MEDICAID ==
[~2018-10-04 07:05] MED LIST changes: -ABIL1TAB11 PO; -AMIT25TA PO; -ARIP1TAB6 PO; -ASPI1TAB PO; -ASPI81TAEC PO; -ATOR40TA75 PO; -AUGM875T28 PO; -BACITAB PO; -BETA115CR; -CARV3.12 PO; -CARV6.25 PO; -CLAR1TAB2 PO; -CLEO300C2 PO; -COLA100C5 PO; -CORE3.12 PO; -COUM2.5T17 PO; -CYCL5TAB PO; -DEPA500T2 PO; -DICL13PA TOP; -DIPH25CA PO; -DOCU100C16 PO; -DOXY100C PO; -DOXY100T PO; -ERYTOIN8 OU; -ESTR62CR PV; -EUCECRE3 TOP; -FERR1TAB8 PO; -FERR325T3 PO; -FOLI1TAB4 PO; -FURO20TA2 PO; -HYDR-3363 PO; -HYDR-3713 PO; -KEFL500C17 PO; -LASI20TA PO; -LASI40TA PO; -LEVO137T2 PO; -LISI-542 PO; -LISI2.5T76 PO; +LR 1,000 ML IV; -MECL-86 PO; -MUSC1CRE EXT; -MUSC1CRE TOP; -NYST10CR; -OPAN5TAB PO; -OXYC-141 PO; -OXYCOD/APAP; -PANT20TA PO; -PANT40TA2 PO; -PARO15TA PO; -PERC10TA26 PO; -PERCOCET PO; -PERM5CR; -PLAV1TAB2 PO; -POTA10CA PO; -PRED10TA PO; -PRED20TA PO; -REQU1TAB15 PO; -ROPI0.25 PO; -ROPI0.5T PO; -ROPI1TAB PO; -TORS20TA2 PO; -TRAZ25TA PO; -TRIA1OI TOP; -VITA500T PO
[2018-10-04] MEDS: ACETAMINOPHEN 500 MG TAB PO (07:30)
[2018-10-04] MEDS: LR 1,000 ML IV ×4 (07:45→22:24)
[2018-10-04] MEDS ORDERED: fentaNYL 100 MCG/2 ML INJECTION (J3010) As Ordered ×2 (07:56→09:00)
[2018-10-04] MEDS ORDERED: MIDAZOLAM INJ 2 MG/2 ML VIAL (J2250) As Ordered ×2 (07:56→09:00)
[2018-10-04] MEDS: fentaNYL 100 MCG/2 ML INJECTION (J3010) IV (08:10)
[2018-10-04] MEDS: MIDAZOLAM INJ 2 MG/2 ML VIAL (J2250) IV ×2 (08:10→08:15)
[2018-10-04] MEDS ORDERED: LIDOCAINE 2% INJ 100 MG/5 ML SDV (FOR ANES.) As Ordered (09:00)
[2018-10-04] MEDS ORDERED: PROPOFOL 200 MG/20 ML VIAL As Ordered (09:00)
[2018-10-04] MEDS ORDERED: BUPIVACAINE/DEXTROSE 0.75% 2 ML AMP As Ordered (09:01)
[2018-10-04] MEDS ORDERED: PHENYLephrine HCL 500 MCG/5 ML (100MCG/ML) SYRINGE (J2370) As Ordered (09:31)
[2018-10-04] MEDS ORDERED: ROPIvacaine 0.5% 30 ML INJECTION (J2795 PER 1MG) (09:32)
[2018-10-04] MEDS: TRANEXAMIC ACID 100 MG/ML 10ML VIAL As Ordered (09:41)
[2018-10-04] MEDS: EPINEPHrine INJ 1 MG/ML 1ML AMP As Ordered (09:42)
[2018-10-04] MEDS: ceFAZolin 1GM INJ (J0690 PER 500MG) As Ordered (09:43)
[2018-10-04] MEDS: BUPIVACAINE HCL 0.25% 10 ML VIAL As Ordered (10:25)
[2018-10-04] MEDS: BUPIVACAINE LIPOSOME/PF 1.3% 20ML VIAL (13.3MG/ML)(EXPAREL)(C9290 PER1MG) As Ordered (10:26)
[2018-10-04] MEDS ORDERED: MORPHINE 1MG/ML IN 0.9% NACL 100ML IV BAG As Ordered (10:47)
[2018-10-04] MEDS: MORPHINE 1MG/ML IN 0.9% NACL 100ML IV BAG IV (11:30)
[2018-10-04] MEDS ORDERED: MORPHINE 10 MG/ML 1ML VIAL (J2270) IV (11:45)
[2018-10-04] MEDS ORDERED: diphenhydrAMINE INJ 50MG/ML VIAL (J1200) IV (11:45)
[2018-10-04] MEDS ORDERED: METOCLOPRAMIDE INJ 10MG/2ML VIAL (J2765) IV (11:45)
[2018-10-04] MEDS ORDERED: PERCOCET 5MG/325MG TAB PO (11:45)
[2018-10-04] MEDS ORDERED: EPIDURAL/PCA KEYS XX (11:45)
[2018-10-04] MEDS ORDERED: NALOXONE INJ 0.4 MG/1 ML VIAL (J2310) IV (11:45)
[2018-10-04] MEDS ORDERED: ONDANSETRON 4MG/2ML VIAL (J2405) IV ×2 (11:45)
[2018-10-04] MEDS ORDERED: NALBUPHINE HCL 10 MG/ML AMP (J2300) IV (11:45)
[2018-10-04] MEDS ORDERED: FLEET ENEMA PR (11:45)
[2018-10-04] MEDS ORDERED: fentaNYL 100 MCG/2 ML INJECTION (J3010) IV (11:45)
[2018-10-04] MEDS ORDERED: ACETAMINOPHEN TAB 650MG DOSE (2X325MG) PO (11:45)
[2018-10-04] MEDS: FERROUS SULFATE 325MG TAB PO (15:06)
[2018-10-04] MEDS: MULTIVITAMINS/MINERALS THERAP 1 TAB PO (15:07)
[2018-10-04] MEDS: DULoxetine 30 MG CAP (CYMBALTA) PO (15:07)
[2018-10-04] MEDS: DIVALPROEX 500MG *ER* TAB PO (15:07)
[2018-10-04] MEDS: ASCORBIC ACID 500 MG TAB PO (15:07)
[2018-10-04] MEDS: LEVOTHYROXINE 150MCG TABLET (0.15MG) PO (15:07)
[2018-10-04] MEDS: rOPINIRole 1MG TAB PO (21:36)
[2018-10-04] MEDS: traZODone 50 MG TAB PO (21:36)
[2018-10-04] MEDS: CARVedilol 6.25 MG TAB PO (21:37)
[2018-10-05] MEDS: LEVOTHYROXINE 150MCG TABLET (0.15MG) PO (05:23)
[2018-10-05] MEDS ORDERED: ONDANSETRON 4 MG TAB (S0181) PO (06:45)
[2018-10-05] MEDS: PERCOCET 5MG/325MG TAB PO ×3 (07:25→19:23)
[2018-10-05 07:46] LABS: HEMATOCRIT 34.7 % (36.0-47.0); HEMOGLOBIN 10.6 g/dl (12.0-15.5); MEAN CORPUSCULAR HEMOGLOBIN 25.5 pg (27.0-33.0); MEAN CORPUSCULAR HGB CONC 30.5 g/dl (32.0-36.5); MEAN CORPUSCULAR VOLUME 83.6 fl (80.0-96.0); PLATELET COUNT, AUTOMATED 172 10^3/uL (150-450); RED BLOOD COUNT 4.15 10^6/uL (4.00-5.40); RED CELL DISTRIBUTION WIDTH 21.1 % (11.5-14.5); WHITE BLOOD COUNT 8.6 10^3/uL (4.0-10.0)
[2018-10-05 08:16] LABS: ANION GAP 4 MEQ/L (8-16); BLOOD UREA NITROGEN 10 MG/DL (7-18); CALCIUM LEVEL 8.6 MG/DL (8.8-10.2); CARBON DIOXIDE LEVEL 31 MEQ/L (21-32); CHLORIDE LEVEL 98 MEQ/L (98-107); CREATININE FOR GFR 0.52 MG/DL (0.55-1.30); GLOMERULAR FILTRATION RATE > 60.0 (>45); GLUCOSE, FASTING 127 MG/DL (70-100); POTASSIUM SERUM 3.8 MEQ/L (3.5-5.1); SODIUM LEVEL 133 MEQ/L (136-145)
[2018-10-05] MEDS ORDERED: NON-FORMULARY 1 EA EA INH ×2 (09:00)
[2018-10-05] MEDS: MIRALAX *UNIT DOSE* 17GM PACKET PO (10:23)
[2018-10-05] MEDS: MOM 30ML SUSPENSION UDC PO (10:23)
[2018-10-05] MEDS: SENOKOT S TAB PO ×2 (10:24→21:04)
[2018-10-05] MEDS: ASCORBIC ACID 500 MG TAB PO (10:25)
[2018-10-05] MEDS: FERROUS SULFATE 325MG TAB PO (10:25)
[2018-10-05] MEDS: MULTIVITAMINS/MINERALS THERAP 1 TAB PO (10:25)
[2018-10-05] MEDS: SOLIFENACIN 5 MG TAB PO (10:26)
[2018-10-05] MEDS: DULoxetine 30 MG CAP (CYMBALTA) PO (10:26)
[2018-10-05] MEDS: CARVedilol 6.25 MG TAB PO ×2 (10:27→21:00)
[2018-10-05] MEDS: DIVALPROEX 500MG *ER* TAB PO (10:28)
[2018-10-05] MEDS: RIVAROXABAN 10 MG TAB (XARELTO) PO (17:38)
[2018-10-05] MEDS: ASPIRIN 81 MG ENTERIC TAB PO (21:04)
[2018-10-05] MEDS: traZODone 50 MG TAB PO (21:04)
[2018-10-05] MEDS: rOPINIRole 1MG TAB PO (21:04)
[2018-10-06] MEDS: PERCOCET 5MG/325MG TAB PO ×4 (00:14→22:09)
[2018-10-06] MEDS: LEVOTHYROXINE 150MCG TABLET (0.15MG) PO (05:49)
[2018-10-06 06:45] LABS: HEMATOCRIT 30.8 % (36.0-47.0); HEMOGLOBIN 9.3 g/dl (12.0-15.5); MEAN CORPUSCULAR HEMOGLOBIN 25.6 pg (27.0-33.0); MEAN CORPUSCULAR HGB CONC 30.2 g/dl (32.0-36.5); MEAN CORPUSCULAR VOLUME 84.8 fl (80.0-96.0); PLATELET COUNT, AUTOMATED 157 10^3/uL (150-450); RED BLOOD COUNT 3.63 10^6/uL (4.00-5.40); RED CELL DISTRIBUTION WIDTH 21.5 % (11.5-14.5); WHITE BLOOD COUNT 8.8 10^3/uL (4.0-10.0)
[2018-10-06 07:10] LABS: ANION GAP 2 MEQ/L (8-16); BLOOD UREA NITROGEN 9 MG/DL (7-18); CALCIUM LEVEL 8.8 MG/DL (8.8-10.2); CARBON DIOXIDE LEVEL 34 MEQ/L (21-32); CHLORIDE LEVEL 97 MEQ/L (98-107); CREATININE FOR GFR 0.49 MG/DL (0.55-1.30); GLOMERULAR FILTRATION RATE > 60.0 (>45); GLUCOSE, FASTING 113 MG/DL (70-100); POTASSIUM SERUM 3.9 MEQ/L (3.5-5.1); SODIUM LEVEL 133 MEQ/L (136-145)
[2018-10-06] MEDS: MIRALAX *UNIT DOSE* 17GM PACKET PO (10:10)
[2018-10-06] MEDS: MOM 30ML SUSPENSION UDC PO (10:11)
[2018-10-06] MEDS: CARVedilol 6.25 MG TAB PO ×2 (10:11→22:12)
[2018-10-06] MEDS: SENOKOT S TAB PO ×2 (10:11→22:08)
[2018-10-06] MEDS: FERROUS SULFATE 325MG TAB PO (10:12)
[2018-10-06] MEDS: MULTIVITAMINS/MINERALS THERAP 1 TAB PO (10:12)
[2018-10-06] MEDS: SOLIFENACIN 5 MG TAB PO (10:13)
[2018-10-06] MEDS: ASCORBIC ACID 500 MG TAB PO (10:14)
[2018-10-06] MEDS: DULoxetine 30 MG CAP (CYMBALTA) PO (10:14)
[2018-10-06] MEDS: DIVALPROEX 500MG *ER* TAB PO (10:58)
[2018-10-06] MEDS: RIVAROXABAN 10 MG TAB (XARELTO) PO (17:20)
[2018-10-06] MEDS: traZODone 50 MG TAB PO (22:08)
[2018-10-06] MEDS: ASPIRIN 81 MG ENTERIC TAB PO (22:08)
[2018-10-06] MEDS: rOPINIRole 1MG TAB PO (22:08)
[2018-10-07] MEDS: LEVOTHYROXINE 150MCG TABLET (0.15MG) PO (06:20)
[2018-10-07] MEDS: PERCOCET 5MG/325MG TAB PO ×2 (06:21→12:51)
[2018-10-07] MEDS: MAGNESIUM CITRATE 300 ML BTL PO (06:47)
[2018-10-07 07:49] LABS: HEMATOCRIT 31.1 % (36.0-47.0); HEMOGLOBIN 9.4 g/dl (12.0-15.5); MEAN CORPUSCULAR HGB CONC 30.2 g/dl (32.0-36.5); MEAN CORPUSCULAR VOLUME 86.1 fl (80.0-96.0); PLATELET COUNT, AUTOMATED 176 10^3/uL (150-450); RED BLOOD COUNT 3.61 10^6/uL (4.00-5.40); RED CELL DISTRIBUTION WIDTH 21.4 % (11.5-14.5)
[2018-10-07 08:03] LABS: ANION GAP 4 MEQ/L (8-16); BLOOD UREA NITROGEN 9 MG/DL (7-18); CALCIUM LEVEL 8.6 MG/DL (8.8-10.2); CARBON DIOXIDE LEVEL 34 MEQ/L (21-32); CHLORIDE LEVEL 98 MEQ/L (98-107); CREATININE FOR GFR 0.57 MG/DL (0.55-1.30); GLOMERULAR FILTRATION RATE > 60.0 (>45); GLUCOSE, FASTING 104 MG/DL (70-100); POTASSIUM SERUM 4.2 MEQ/L (3.5-5.1); SODIUM LEVEL 136 MEQ/L (136-145)
[2018-10-07] MEDS: PANTOPRAZOLE 40MG TAB (PROTONIX) PO (08:53)
[2018-10-07] MEDS: MIRALAX *UNIT DOSE* 17GM PACKET PO (09:00)
[2018-10-07] MEDS: MOM 30ML SUSPENSION UDC PO (09:00)
[2018-10-07] MEDS: SOLIFENACIN 5 MG TAB PO (09:38)
[2018-10-07] MEDS: DULoxetine 30 MG CAP (CYMBALTA) PO (09:39)
[2018-10-07] MEDS: CARVedilol 6.25 MG TAB PO (09:39)
[2018-10-07] MEDS: FERROUS SULFATE 325MG TAB PO (09:40)
[2018-10-07] MEDS: ASCORBIC ACID 500 MG TAB PO (09:40)
[2018-10-07] MEDS: DIVALPROEX 500MG *ER* TAB PO (09:40)
[2018-10-07] MEDS: SENOKOT S TAB PO (09:40)
[2018-10-07] MEDS: MULTIVITAMINS/MINERALS THERAP 1 TAB PO (09:41)
== END 2018-10-07 13:30 | disposition home health service (06) | DRG 470 ==
LOC: M OR 07:05 → M MS5PR 11:55
PROC: 0SRD0J9 Replacement of Left Knee Joint with Synthetic Substitute, Cemented, Open Approach (ICD-10-PCS; principal; 2018-10-04 08:59)
DX: M17.12 Unilateral primary osteoarthritis, left knee (principal); I10 Essential (primary) hypertension; J43.9 Emphysema, unspecified; Z79.899 Other long term (current) drug therapy; Z79.82 Long term (current) use of aspirin; E03.9 Hypothyroidism, unspecified; E78.00 Pure hypercholesterolemia, unspecified; I25.2 Old myocardial infarction; Z96.641 Presence of right artificial hip joint; Z96.642 Presence of left artificial hip joint; Z96.651 Presence of right artificial knee joint; Z96.611 Presence of right artificial shoulder joint; G25.81 Restless legs syndrome; K21.9 Gastro-esophageal reflux disease without esophagitis; K44.9 Diaphragmatic hernia without obstruction or gangrene; M06.9 Rheumatoid arthritis, unspecified; I25.10 Atherosclerotic heart disease of native coronary artery without angina pectoris; E78.5 Hyperlipidemia, unspecified; R91.8 Other nonspecific abnormal finding of lung field; Z87.891 Personal history of nicotine dependence; Z88.8 Allergy status to other drugs, medicaments and biological substances

== ENCOUNTER → 2019-02-21 | Outpatient (CLI) | payer MEDICARE, MEDICAID ==
[~2019-02-21] MED LIST changes: +ABIL1TAB11 PO; +AMIT25TA PO; +ARIP1TAB6 PO; +ASPI81TA26 PO; +ASPI81TAEC PO; +ATOR40TA75 PO; +AUGM875T28 PO; +BACITAB PO; +BETA115CR; +BREO1INH3 INH; +CARV3.12 PO; +CARV6.25 PO; +CENTCHW3 PO; +CETI10TA PO; +CHEL50TA PO; +CLAR1TAB2 PO; +CLEO300C2 PO; +COLA100C5 PO; +CORE3.12 PO; +COUM2.5T17 PO; +CYCL5TAB PO; +DEPA500T2 PO; +DICL13PA TOP; +DIPH25CA PO; +DOCU100C16 PO; +DOXY100C PO; +DOXY100T PO; +DULO1CAP2 PO; +DULO1CAP3 PO; +E-Z-GAS II EFFERVESCENT PACKET (SODIUM BICARB./CITRIC ACID/SIMETHICONE) As Ordered ONE; +E-Z-HD 98% w/w 340GM SUSP BTL As Ordered ONE; +E-Z-PAQUE 96% w/w SUSP 176GM BTL As Ordered ONE; +ERYTOIN8 OU; +ESTR62CR PV; +EUCECRE3 TOP; +FERR1TAB8 PO; +FERR325T3 PO; +FOLI1TAB11 PO; +FURO20TA2 PO; +GABA-1171; +HYDR-3363 PO; +HYDR-3713 PO; +INCR1INH IN; +IRON28TA PO; +KEFL500C17 PO; +KLOR10TA76 PO; +LASI20TA3 PO; +LASI40TA9 PO; +LEVO137T2 PO; +LEVO150T7 PO; +LISI-542 PO; +LISI2.5T76 PO; -LR 1,000 ML IV; +MECL-86 PO; +METH4PACK; +MULT1TAB10 PO; +MUSC1CRE EXT; +MUSC1CRE TOP; +MYRB50TA PO; +NYST10CR; +OPAN5TAB PO; +OXYC-141 PO; +OXYC1TAB23 PO; +OXYCOD/APAP; +PANT20TA2 PO; +PANT40TA3 PO; +PARO15TA PO; +PARO30TA3 PO; +PERC10TA26 PO; +PERC5TAB12 PO; +PERCOCET PO; +PERM5CRE9; +PLAV1TAB2 PO; +PRED-351 PO; +PRED10TA2 PO; +PRED20TA PO; +PROAAER10 INH; +RANI150T; +REQU0.5T PO; +ROPI0.253 PO; +ROPI0.5T PO; +ROPI1TAB PO; +TESS100C PO; +TORS20TA2 PO; +TRAZ-160 PO; +TRAZ1TAB6 PO; +TRIA1OI TOP; +VESI5TAB2 PO; +VITA100018 PO; +VITA200016 PO; +VITA500T PO; +XARE10TA PO; +ZITH250T PO
--- NOTE | 2019-02-21 12:42 | REPMRS ---
Patient History The patient states she has not had a clinical breast exam in over a year. Family history of breast cancer at age 50 or over in maternal grandmother, colorectal cancer in maternal cousin. Digital Mammo Screening Bilat: February 21, 2019 - Exam #: [id number] Bilateral CC and MLO view(s) were taken. Technologist: Radha Herron, Technologist Prior study comparison: October 02, 2016, digital woman screen mammo, performed at [facility]. December 04, 2014, digital woman screen mammo, performed at [facility]. FINDINGS: There are scattered fibroglandular densities. There has been no change in the appearance of the mammogram from the prior studies. There is a mild amount of residual fibroglandular tissue which is fairly symmetric. There is no interval development of dominant mass, architectural distortion, or clustered microcalcification suggestive of malignancy. Assessment: BI-RADS/ACR category 1 mammogram. Negative Mammogram. Recommendation Routine screening mammogram in 1 year (for women over age 40). This mammogram was interpreted with the aid of an FDA-approved computer-aided dectection system. Electronically Signed By: Romeo Tovar MD 02/21/19 [id number]
== END ==
LOC: M RAD 08:54
PROVIDERS: ATTEND Family Medicine
DX: Z12.31 Encounter for screening mammogram for malignant neoplasm of breast (principal); K21.0 Gastro-esophageal reflux disease with esophagitis

== ENCOUNTER → 2019-03-08 | Outpatient (CLI) | payer MEDICARE, MEDICAID ==
--- NOTE | 2019-03-08 17:25 | REP ---
Esophagram The procedure was performed under the direct supervision of Dr. Guerra. The images were reviewed with Dr. Guerra. A single view PA chest x-ray is submitted as a assignment desk editor film. The superior mediastinal structures are midline. The heart size is within normal limits. The lungs are clear. There is a large hiatal hernia identified. The patient is status post right shoulder arthroplasty. Liquid barium and gas producing granules were given in the erect position as well as liquid barium in the prone oblique positions in order to perform a double contrast esophagram examination. The oral and pharyngeal stages of deglutition are unremarkable. There is a small anterior cervical esophageal web at the C4-5 level. There are esophageal transport there are tertiary waves demonstrated. There is no esophagitis, stricture or mucosal ring. There is a large fixed hiatal hernia. hiatal hernia. Gastroesophageal reflux is not demonstrated on this examination. Impression: 1. There is a small anterior cervical esophageal web at the C4-5 level. 2. Tertiary waves. 3. There is a large fixed hiatal hernia. 0.9 minutes of fluoro time was utilized for this procedure. Reviewed by JOSÉ LUIS Chicas 03/08/2019 04:00 P Electronically Signed by Charles Guerra MD 03/08/2019 05:16 P
== END ==
LOC: M RAD 09:39
PROVIDERS: ATTEND Family Medicine
DX: K21.9 Gastro-esophageal reflux disease without esophagitis (principal)

== ENCOUNTER → 2019-03-22 | Outpatient (RCR) | payer MEDICARE, MEDICAID ==
[~2019-03-22] MED LIST changes: -E-Z-GAS II EFFERVESCENT PACKET (SODIUM BICARB./CITRIC ACID/SIMETHICONE) As Ordered ONE; -E-Z-HD 98% w/w 340GM SUSP BTL As Ordered ONE; -E-Z-PAQUE 96% w/w SUSP 176GM BTL As Ordered ONE
== END ==
LOC: M PT 02-23 10:35
PROVIDERS: ATTEND Orthopaedic Surgery
DX: M54.5 Low back pain (principal); M25.562 Pain in left knee

== ENCOUNTER → 2019-03-24 | Outpatient (CLI) | payer MEDICARE, MEDICAID ==
[2019-03-24 12:37] LABS: APPEARANCE, URINE CLOUDY (CLEAR); BACTERIA, URINE AUTO 1+ (NEGATIVE); BILIRUBIN, URINE AUTO NEGATIVE (NEGATIVE); BLOOD, URINE BLOOD NEGATIVE (NEGATIVE); COLOR, URINE YELLOW (YELLOW); GLUCOSE, URINE (UA) AUTO NEGATIVE (NEGATIVE); KETONE, URINE AUTO NEGATIVE (NEGATIVE); LEUKOCYTE ESTERASE, URINE AUTO 2+ (NEGATIVE); NITRITE, URINE AUTO POSITIVE (NEGATIVE); PROTEIN, URINE AUTO NEGATIVE (NEGATIVE); RBC, URINE AUTO 3 /HPF (0-3); SPECIFIC GRAVITY URINE AUTO 1.013 (1.002-1.035); SQUAMOUS EPITHELIAL CELL UR AU 1 /HPF (0-6); UROBILINOGEN, URINE AUTO 0.2 mg/dL (0.0-2.0); WBC, URINE AUTO 71 /HPF (0-3)
[2019-03-24 12:38] LABS: BASO # 0.1 10^3/uL (0.0-0.2); BASO % 0.6 % (0.0-1.0); EOS # 0.4 10^3/uL (0.0-0.50); HEMATOCRIT 41.1 % (36.0-47.0); LYMPH # 1.7 10^3/uL (1.5-4.5); LYMPH % 22.2 % (24.0-44.0); MEAN CORPUSCULAR HEMOGLOBIN 27.4 pg (27.0-33.0); MEAN CORPUSCULAR HGB CONC 31.6 g/dl (32.0-36.5); MEAN CORPUSCULAR VOLUME 86.5 fl (80.0-96.0); MONO # 0.9 10^3/uL (0.0-0.8); NEUTROPHILS # 4.7 10^3/uL (1.8-7.7); NEUTROPHILS % 60.1 % (36.0-66.0); PLATELET COUNT, AUTOMATED 271 10^3/uL (150-450); RED BLOOD COUNT 4.75 10^6/uL (4.00-5.40); WHITE BLOOD COUNT 7.8 10^3/uL (4.0-10.0)
[2019-03-24 12:57] LABS: HEMOGLOBIN A1c 5.3 %
[2019-03-24 13:08] LABS: ALBUMIN 3.4 GM/DL (3.2-5.2); ALT/SGPT 18 U/L (12-78); BILIRUBIN,TOTAL 0.5 MG/DL (0.2-1.0); BLOOD UREA NITROGEN 16 MG/DL (7-18); CALCIUM LEVEL 9.1 MG/DL (8.8-10.2); CARBON DIOXIDE LEVEL 29 MEQ/L (21-32); CHLORIDE LEVEL 103 MEQ/L (98-107); CHOLESTEROL LEVEL 150 MG/DL (<200); CHOLESTEROL RISK RATIO 2.112 (<5); FERRITIN 20 NG/ML (8-252); FOLATE > 24.0 NG/ML (>5.4); FREE T4 1.77 NG/DL (0.76-1.46); GLOMERULAR FILTRATION RATE > 60.0 (>45); GLUCOSE, FASTING 86 MG/DL (70-100); HDL CHOLESTEROL 71 MG/DL (>40); IRON (FE) 33 UG/DL (50-170); LDL CHOLESTEROL 63 MG/DL (<100); NON-HDL-C 79 MG/DL; NT-PRO BNP 596 PG/ML (<125); PERCENT SATURATION 8.3 % (13.2-45.0); POTASSIUM SERUM 4.5 MEQ/L (3.5-5.1); SODIUM LEVEL 138 MEQ/L (136-145); THYROID STIMULATING HORMONE 0.071 uIU/ML (0.358-3.740); TOTAL 25(OH) VITAMIN D 65.8 NG/ML (30.0-100.0); TOTAL IRON BINDING CAPACITY 400 UG/DL (250-450); TOTAL PROTEIN 7.3 GM/DL (6.4-8.2); TRIGLYCERIDES LEVEL 82 MG/DL (<150); VITAMIN B12 LEVEL 741 PG/ML (247-911)
== END ==
LOC: M LAB 10:56
PROVIDERS: ATTEND Family Medicine
DX: E03.9 Hypothyroidism, unspecified (principal); I10 Essential (primary) hypertension; E78.5 Hyperlipidemia, unspecified; G25.81 Restless legs syndrome; K21.9 Gastro-esophageal reflux disease without esophagitis

== ENCOUNTER → 2019-03-30 | Outpatient (REF) | payer MEDICARE, MEDICAID ==
[2019-03-30 14:02] LABS: C REACTIVE PROTEIN QUANTITATIV 0.57 MG/DL (0.00-0.30); COMPLEMENT C3 127 MG/DL (90-180); COMPLEMENT C4 34 MG/DL (10-40); RHEUMATOID FACTOR QUANT 20.7 IU/ML (<15.0)
[2019-03-30 14:05] LABS: HEPATITIS B SURFACE ANTIBODY NEGATIVE (POSITIVE)
[2019-03-30 14:11] LABS: CREATININE,RANDOM URINE 33.8 MG/DL; TOTAL PROTEIN,RANDOM URINE 10.4 MG/DL (0.0-12.0)
[2019-03-30 14:17] LABS: HEPATITIS B SURFACE ANTIGEN NEGATIVE (NEGATIVE)
[2019-03-30 14:19] LABS: APPEARANCE, URINE CLEAR (CLEAR); BACTERIA, URINE AUTO 1+ (NEGATIVE); BILIRUBIN, URINE AUTO NEGATIVE (NEGATIVE); BLOOD, URINE BLOOD NEGATIVE (NEGATIVE); COLOR, URINE YELLOW (YELLOW); GLUCOSE, URINE (UA) AUTO NEGATIVE (NEGATIVE); KETONE, URINE AUTO NEGATIVE (NEGATIVE); LEUKOCYTE ESTERASE, URINE AUTO 2+ (NEGATIVE); NITRITE, URINE AUTO POSITIVE (NEGATIVE); PROTEIN, URINE AUTO NEGATIVE (NEGATIVE); RBC, URINE AUTO 0 /HPF (0-3); SQUAMOUS EPITHELIAL CELL UR AU 0 /HPF (0-6); UROBILINOGEN, URINE AUTO 0.2 mg/dL (0.0-2.0); WBC, URINE AUTO 33 /HPF (0-3)
[2019-03-30 14:45] LABS: HEPATITIS C VIRUS ABY INDEX 0.1 INDEX (<0.8)
[2019-04-05 14:16] LABS: ANA (HEP2) Positive (.); ANGIOTENSIN 1 CONVERTING ENZYM 61 U/L (14-82); ANTI CENTROMERE ANTIBODY <0.2 AI (0.0-0.9); ANTI DS-DNA AB <1:10 titer (.); ANTI JO-1 ANTIBODIES <0.2 AI (0.0-0.9); ANTI SCLERODERMA ANTIBODIES <0.2 AI (0.0-0.9); CYCLIC CITRULLINATED PEPTIDE > 250 units (0-19); HEPATITIS B CORE ANTIBODY IGG Negative (Negative); RNA POLYMERASE III IgG AB 11.4 Units/ml (.); RNP ANTIBODY < 0.2 AI (0.0-0.9); SMITHS ANTIBODY < 0.2 AI (0.0-0.9); SSA SJOGRENS A <0.2 AI (0.0-0.9); SSB SJOGRENS B <0.2 AI (0.0-0.9); VITAMIN D 1,25 DIHYDROXY 35.6 pg/mL (19.9-79.3)
== END ==
LOC: M SFHCPLAZ 10:07
PROVIDERS: ATTEND Internal Medicine Rheumatology
DX: R76.8 Other specified abnormal immunological findings in serum (principal); M05.79 Rheumatoid arthritis with rheumatoid factor of multiple sites without organ or systems involvement; R91.8 Other nonspecific abnormal finding of lung field; R79.89 Other specified abnormal findings of blood chemistry; Z79.899 Other long term (current) drug therapy; Z79.51 Long term (current) use of inhaled steroids
CPT/HCPCS: 36415; 81001; 82164; 82570; 82652; 83520; 84156; 85652; 86038; 86140; 86160; 86200; 86225; 86235; 86255; 86431; 86480; 86704; 86706; 86803; 87340; G0463

== ENCOUNTER → 2019-04-04 | Outpatient (CLI) | payer MEDICARE, MEDICAID ==
--- NOTE | 2019-04-05 01:29 | REP ---
Clinical: Rheumatoid arthritis. Technique: AP, lateral, flexion/extension, bilateral oblique, and open-mouth views of the cervical spine. Findings: Advanced degenerative disc osteophyte complex at C5-6 includes endplate sclerosis, disc space narrowing and osteophytosis. Mild degenerative change at C6-7 includes endplate sclerosis and minimal disc space narrowing with very early anterior spurring. Very subtle chronic subluxation is suggested at the C4-5 and C5-6 levels. Open mouth view demonstrates normal C1-C2 articulation and odontoid process. Oblique views demonstrate relatively patent bilateral neural foramen. Impression: Mild to advanced relatively focal degenerative changes involving C5-6 and C6-7. Electronically Signed by Jackson Covington MD 04/05/2019 01:20 A
--- NOTE | 2019-04-05 02:50 | REP ---
Clinical: Rheumatoid arthritis. Technique: AP, lateral, bilateral oblique views of the right and left hand. Findings: Generalized age-related osteopenia is appreciated along with mild/early moderate bilateral degenerative changes including periarticular sclerosis and joint space narrowing involving the interphalangeal joints as well as the radiocarpal and carpometacarpal joints. Focal early advanced degenerative changes are also noted involving the left second metacarpophalangeal and fourth proximal interphalangeal joints with subtle subchondral cystic/erosive changes, more advanced joint space narrowing, and second MCP subluxation. Impression: 1. Generalized osteopenia and bilateral osteoarthritic degenerative changes. 2. Focal advanced degenerative changes involving the left second MCP and fourth PIP joints which may reflect inflammatory/rheumatoid arthritic findings. Electronically Signed by Jackson Covington MD 04/05/2019 02:42 A
== END ==
LOC: M RAD 18:21
PROVIDERS: ATTEND Internal Medicine Rheumatology
DX: M50.323 Other cervical disc degeneration at C6-C7 level (principal); M06.042 Rheumatoid arthritis without rheumatoid factor, left hand; M06.041 Rheumatoid arthritis without rheumatoid factor, right hand; M05.79 Rheumatoid arthritis with rheumatoid factor of multiple sites without organ or systems involvement

== ENCOUNTER 2019-04-21 11:15 | Outpatient (RCR) | payer MEDICARE, OTHER, MEDICAID | END 2019-04-22 | LOC: M PT 11:15 | PROVIDERS: ATTEND Orthopaedic Surgery | DX: M54.5 Low back pain (principal); Z96.652 Presence of left artificial knee joint ==

== ENCOUNTER → 2019-07-05 | Outpatient (REF) | payer MEDICARE, MEDICAID ==
[~2019-07-05] MED LIST changes: -DIPH25CA PO; +DIPH25CA32 PO; -DULO1CAP2 PO; -DULO1CAP3 PO; +DULO1CAP5 PO; +DULO1CAP6 PO; -TRAZ-160 PO; +TRAZ-252 PO
== END ==
LOC: M LAB REF 12:37
PROVIDERS: ATTEND Internal Medicine Pulmonary Disease
DX: R91.8 Other nonspecific abnormal finding of lung field (principal)

== ENCOUNTER → 2019-07-06 | Outpatient (REF) | payer MEDICARE, MEDICAID | LOC: M LAB REF 15:47 | DX: J15.211 Pneumonia due to Methicillin susceptible Staphylococcus aureus (principal) ==

== ENCOUNTER → 2019-07-08 | Outpatient (CLI) | payer MEDICAID, MEDICARE, OTHER ==
--- NOTE | 2019-07-08 18:25 | REP ---
CT CHEST WITHOUT CONTRAST: 07/08/2019. Comparison: 07/05/2018, 04/15/2018, 01/19/2017. Clinical history: Abnormal lung findings, follow-up. Technique: Noncontrast chest CT with coronal and sagittal reconstructions provided. Findings: The upper lung zones again show shaggy nodules, irregular nodular infiltrates bilaterally while peripherally in the left lower lobe in the superior segment and inferiorly in the posterior basal segment there are smaller interstitial and nodular infiltrates present. There is cylindrical bronchiectatic change. There are a few other scattered parenchymal nodules, some well-defined while others have shaggy margins. There is no pleural based mass, pleural plaques, pneumothorax, or pneumomediastinum. No effusion. Heart size mildly prominent. There is a small pericardial effusion present as on previous studies and a large hiatal hernia with the fundus of the stomach extending into the chest upwards towards the level of the david. There are precarinal, AP window, prevascular and right paratracheal space nodes. The largest are precarinal and measure 1.3 cm. No axillary or supraclavicular mass. A right total shoulder arthroplasty evident. Sternum, manubrium, visible clavicles, scapulae, right humeral head, ribs, thoracic vertebral bodies show no compression fractures. There are small marginal osteophytes. In the upper abdomen visualized liver and spleen are without acute finding. Gallbladder is partially contracted, but without calcified stone. A tortuous calcified thoracic aorta, unchanged. Adrenal glands without mass or nodule. That portion of pancreas included unremarkable. Spleen unremarkable. Impression: 1. New shaggy nodular infiltrates upper lobes, right greater than left and with other scattered areas of smaller shaggy nodules and fibroatelectatic changes lower lung zones. There are a few scattered stable smoothly marginated nodules. No effusion, dense consolidation with air bronchograms or mass. Lymph nodes in the the mediastinum similar to previous studies. 2. Cylindrical bronchiectatic change and prominent hiatal hernia as before. Small pericardial effusion. Electronically Signed by Erick Flores MD 07/08/2019 08:23 P
== END ==
LOC: M RAD 17:00
DX: J15.211 Pneumonia due to Methicillin susceptible Staphylococcus aureus (principal)

== ENCOUNTER → 2019-07-11 | Outpatient (CLI) | payer MEDICARE, OTHER ==
--- NOTE | 2019-07-11 17:36 | REP ---
Chest x-ray: Two views. History: Pneumonia. Comparison chest x-ray: May 11, 2018. [place] chest CT study July 08, 2019. Findings: There is a large hiatal hernia behind the heart. There is some pleural thickening adjacent to a fracture of the left anterior 7th rib. This is visible on CT study July 08, 2019. There is an infiltrative density in the left apex consistent with pneumonia. A similar infiltrate is seen in the right apex. A nodular opacity is seen in the right upper lung field. There are degenerative changes in the thoracic spine. Heart is not enlarged. A prosthetic right shoulder is seen. No bony destructive lesion is seen. Impression: Healing fracture left 7th anterior rib. Infiltrates in the apices bilaterally. Nodular density right upper lobe region. Electronically Signed by Charles Guerra MD 07/11/2019 05:28 P
== END ==
LOC: M RAD 16:51
PROVIDERS: ATTEND Family Medicine
DX: K44.9 Diaphragmatic hernia without obstruction or gangrene (principal); R91.8 Other nonspecific abnormal finding of lung field

== ENCOUNTER 2019-07-14 15:38 | Emergency (ER) | payer MEDICARE, MEDICAID ==
[~2019-07-14] VITALS: Ht 167.6 cm; Wt 73.8 kg
[2019-07-14 17:36] LABS: BASO % 0.5 % (0.0-1.0); EOS # 0.2 10^3/uL (0.0-0.50); HEMATOCRIT 32.2 % (36.0-47.0); HEMOGLOBIN 9.8 g/dl (12.0-15.5); LYMPH # 1.7 10^3/uL (1.5-4.5); LYMPH % 22.9 % (24.0-44.0); MEAN CORPUSCULAR HEMOGLOBIN 26.6 pg (27.0-33.0); MEAN CORPUSCULAR HGB CONC 30.4 g/dl (32.0-36.5); MEAN CORPUSCULAR VOLUME 87.5 fl (80.0-96.0); MONO # 0.9 10^3/uL (0.0-0.8); MONO % 11.8 % (0.0-5.0); NEUTROPHILS # 4.6 10^3/uL (1.8-7.7); NEUTROPHILS % 62.4 % (36.0-66.0); PLATELET COUNT, AUTOMATED 296 10^3/uL (150-450); RED BLOOD COUNT 3.68 10^6/uL (4.00-5.40); WHITE BLOOD COUNT 7.4 10^3/uL (4.0-10.0)
[2019-07-14] MEDS ORDERED: NS 1,000 ML IV ONE (18:00)
[2019-07-14 18:09] LABS: ALBUMIN 2.6 GM/DL (3.2-5.2); ALT/SGPT 16 U/L (12-78); BILIRUBIN,TOTAL 0.1 MG/DL (0.2-1.0); BLOOD UREA NITROGEN 10 MG/DL (7-18); CALCIUM LEVEL 9.4 MG/DL (8.8-10.2); CARBON DIOXIDE LEVEL 29 MEQ/L (21-32); CHLORIDE LEVEL 107 MEQ/L (98-107); CREATININE FOR GFR 0.61 MG/DL (0.55-1.30); GLOMERULAR FILTRATION RATE > 60.0 (>45); GLUCOSE, FASTING 96 MG/DL (70-100); POTASSIUM SERUM 4.4 MEQ/L (3.5-5.1); SODIUM LEVEL 142 MEQ/L (136-145); TOTAL PROTEIN 6.8 GM/DL (6.4-8.2)
[2019-07-14 19:51] VITALS: O2SAT 93
[2019-07-14 21:09] VITALS: BP 141/67
--- NOTE | 2019-07-15 05:21 | ECGEPIP ---
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
== END 2019-07-14 21:16 | disposition home or self-care (01) ==
LOC: M ED 15:38
DX: J15.211 Pneumonia due to Methicillin susceptible Staphylococcus aureus (principal); J18.9 Pneumonia, unspecified organism; R91.1 Solitary pulmonary nodule; I10 Essential (primary) hypertension; E78.5 Hyperlipidemia, unspecified; E03.9 Hypothyroidism, unspecified; F33.9 Major depressive disorder, recurrent, unspecified; F41.9 Anxiety disorder, unspecified; Z79.899 Other long term (current) drug therapy; Z79.01 Long term (current) use of anticoagulants; Z88.1 Allergy status to other antibiotic agents; Z88.8 Allergy status to other drugs, medicaments and biological substances

== ENCOUNTER → 2019-07-14 | Outpatient (REF) | payer MEDICARE | LOC: M LAB REF 16:25 | PROVIDERS: ATTEND Nurse Practitioner | DX: J15.211 Pneumonia due to Methicillin susceptible Staphylococcus aureus (principal) ==

== ENCOUNTER → 2019-07-14 | Outpatient (CLI) | payer MEDICARE ==
--- NOTE | 2019-07-14 16:42 | REP ---
HISTORY: Pneumonia. History of pulmonary nodules. COMPARISON: All prior exams were reviewed, the latest 07/08/2019. The lack of intravenous contrast decreases the sensitivity of the exam. The mediastinum and pulmonary shelley are unchanged. The imaged upper abdomen and imaged osseous structures are unchanged. Evaluation of the lung hdz again shows rather extensive cylindrical bronchiectasis with patchy asymmetric densities scattered throughout the lung hdz too numerous to count or individually assess. The predominant nearly spiculated bilateral upper lobe nodules with early cavitary features/bronchiectatic air bronchograms are all stable. There is a new asymmetric density in the extreme left lung apex. Due to the extensive nature of the findings, new subcentimeter sized densities cannot be ruled out. IMPRESSION: No significant change from 07/08/2019. Findings as described above. Electronically Signed by Valentino Wheeler DO 07/14/2019 04:50 P
== END ==
LOC: M RAD 15:18
PROVIDERS: ATTEND Family Medicine
DX: J18.9 Pneumonia, unspecified organism (principal); R91.1 Solitary pulmonary nodule

== ENCOUNTER → 2019-08-02 | Outpatient (CLI) | payer MEDICARE, MEDICAID ==
[2019-08-02 16:02] LABS: BASO % 0.6 % (0.0-1.0); EOS # 0.3 10^3/uL (0.0-0.5); EOS % 3.9 % (0.0-3.0); HEMATOCRIT 32.7 % (36.0-47.0); HEMOGLOBIN 10.1 g/dl (12.0-15.5); LYMPH # 1.6 10^3/uL (1.5-5.0); LYMPH % 23.1 % (24.0-44.0); MEAN CORPUSCULAR HEMOGLOBIN 26.2 pg (27.0-33.0); MEAN CORPUSCULAR HGB CONC 30.9 g/dl (32.0-36.5); MEAN CORPUSCULAR VOLUME 84.7 fl (80.0-96.0); MONO # 0.8 10^3/uL (0.0-0.8); MONO % 11.5 % (0.0-5.0); NEUTROPHILS # 4.1 10^3/uL (1.5-8.5); NEUTROPHILS % 60.5 % (36.0-66.0); PLATELET COUNT, AUTOMATED 304 10^3/uL (150-450); RED BLOOD COUNT 3.86 10^6/uL (4.00-5.40); WHITE BLOOD COUNT 6.9 10^3/uL (4.0-10.0)
[2019-08-02 16:31] LABS: ALBUMIN 3.1 GM/DL (3.2-5.2); ALT/SGPT 13 U/L (12-78); BILIRUBIN,TOTAL 0.4 MG/DL (0.2-1.0); BLOOD UREA NITROGEN 12 MG/DL (7-18); CARBON DIOXIDE LEVEL 27 MEQ/L (21-32); CHLORIDE LEVEL 104 MEQ/L (98-107); CREATININE FOR GFR 0.71 MG/DL (0.55-1.30); GLOMERULAR FILTRATION RATE > 60.0 (>45); GLUCOSE, FASTING 113 MG/DL (70-100); POTASSIUM SERUM 4.1 MEQ/L (3.5-5.1); SODIUM LEVEL 140 MEQ/L (136-145); TOTAL PROTEIN 6.5 GM/DL (6.4-8.2)
== END ==
LOC: M LAB 15:20
PROVIDERS: ATTEND Family Medicine
DX: J15.211 Pneumonia due to Methicillin susceptible Staphylococcus aureus (principal)

== ENCOUNTER → 2019-08-02 | Outpatient (CLI) | payer MEDICARE, MEDICAID ==
--- NOTE | 2019-08-02 17:30 | REP ---
CT of the chest without contrast Clinical indication: Abnormal findings in the lung field. Comparison: CT chest of 07/14/2019 and 10/03/2017. Technique: CT of the chest was performed without contrast. Coronal and sagittal soft tissue reformatted images, axial lung reformatted images and coronal MIP images were provided. Findings: The upper airway is patent. Again, there are innumerable noncalcified nodules and peribronchial nodular opacities, the majority of which are subcentimeter in size. There is pleural parenchymal scarring within the lung apices and some spiculated nodular opacities and some of which are somewhat cavitary, increased in extent from 10/03/2017 but not significantly changed from the recent 07/14/2019 examination. A right upper lobe spiculated nodule measures 16 x 8 mm, previously 14 x 8 mm on 07/14/2019, and new since the 2017 examination (image 23). However, a spiculated nodular opacity within the left apex is slightly decreased in size, measuring 15 x 9 mm, previously 19 x 12 mm on the 07/14/2019 examination and 5 mm on March 30, 2017 study. The majority of nodules and irregular nodular opacities are subcentimeter in size and not significantly changed from the recent study of 07/14/2019, including a 7 mm spiculated nodule within the left upper lobe is unchanged from prior, but new since 2017 (image 38). There is streak artifact related to the metallic right humeral head prosthesis. There is no large thyroid nodule. The heart is normal as is. There are coronary artery calcifications. There is no sizable pericardial effusion. There is similar appearance of prominent mediastinal lymph nodes for example, a precarinal lymph node measures 15 x 13 mm. This is not significantly changed from 2017. There is hiatal hernia none with a significant portion of the stomach within the chest, similar to prior. There are atherosclerotic calcifications of the abdominal aorta and its branches. No gross abnormality within the upper abdomen. No suspicious focal osseous lesion identified. Impression: Innumerable noncalcified nodules and peribronchial nodular opacity measuring up to 16 and 15 mm within the right and left upper lobes. Nodules are not enlarged compared to the 07/14/2019 examination but many are new since 2017. A neoplastic process is not excluded. Electronically Signed by Rylie Steel MD 08/02/2019 05:21 P
== END ==
LOC: M RAD 15:19
PROVIDERS: ATTEND Internal Medicine Pulmonary Disease
DX: R91.8 Other nonspecific abnormal finding of lung field (principal); J15.211 Pneumonia due to Methicillin susceptible Staphylococcus aureus

== ENCOUNTER → 2019-08-29 | Outpatient (REF) | payer MEDICARE, MEDICAID ==
[~2019-08-29] MED LIST changes: +HYDR-643 PO; -INCR1INH IN; +INCR1INH INH; +SULF1TAB30 PO
== END ==
LOC: M LAB REF 15:34
PROVIDERS: ATTEND Internal Medicine Infectious Disease
DX: A31.0 Pulmonary mycobacterial infection (principal)

== ENCOUNTER → 2019-09-19 | Outpatient (REF) | payer MEDICARE, MEDICAID ==
[~2019-09-19] MED LIST changes: +INCR1INH IN; -INCR1INH INH
== END ==
LOC: M LAB REF 14:06
PROVIDERS: ATTEND Internal Medicine Infectious Disease
DX: A31.0 Pulmonary mycobacterial infection (principal)

== ENCOUNTER 2019-09-21 16:24 | Emergency (ER) | payer MEDICARE, MEDICAID ==
[~2019-09-21] VITALS: Ht 160 cm; Wt 78.1 kg
[~2019-09-21 16:24] MED LIST changes: -HYDR-643 PO; -SULF1TAB30 PO
[2019-09-21] MEDS ORDERED: SULF1TAB30 PO (17:01)
[2019-09-21] MEDS ORDERED: HYDR-643 PO (17:01)
--- NOTE | 2019-09-21 18:02 | REP ---
Right rib series: Five views including PA chest. History: Injury in a fall. Comparison chest x-ray: July 11, 2019 and May 11, 2018. Findings: PA chest radiograph shows no evidence of pneumothorax or hydrothorax. Mediastinum is not traumatically widened. There is a large hiatal hernia again noted. Heart size is borderline. There is some residual pleural thickening at the site of the previously noted healing left-sided anterior rib fracture involving rib number seven. There is diffuse osteopenia. A prosthetic shoulder joint is noted on the right as before. Multiple views of the right ribcage demonstrate old healed or healing rib fractures involving the right third through 8th ribs. The right lateral eighth rib shows a cortical discontinuity which may reflect an acute fracture although a similar appearance was visible in May 12, 2018. No definitely new rib fracture is appreciated. Impression: Multiple old bilateral rib fractures. Questionable nondisplaced acute right eighth rib fracture. Large hiatal hernia. Electronically Signed by Charles Guerra MD 09/21/2019 07:10 P
[2019-09-21 18:42] VITALS: BP 184/90
== END 2019-09-21 19:43 | disposition home or self-care (01) ==
LOC: M ED 16:24
DX: S20.211A Contusion of right front wall of thorax, initial encounter (principal); S22.41XG Multiple fractures of ribs, right side, subsequent encounter for fracture with delayed healing; W08.XXXA Fall from other furniture, initial encounter; Y92.018 Other place in single-family (private) house as the place of occurrence of the external cause; K44.9 Diaphragmatic hernia without obstruction or gangrene; I25.10 Atherosclerotic heart disease of native coronary artery without angina pectoris; I11.0 Hypertensive heart disease with heart failure; I50.9 Heart failure, unspecified; E78.5 Hyperlipidemia, unspecified; Z87.891 Personal history of nicotine dependence; Z88.1 Allergy status to other antibiotic agents; Z88.6 Allergy status to analgesic agent; Z79.51 Long term (current) use of inhaled steroids; Z79.52 Long term (current) use of systemic steroids; Z79.83 Long term (current) use of bisphosphonates; Z79.899 Other long term (current) drug therapy

== ENCOUNTER → 2019-10-03 | Outpatient (CLI) | payer MEDICARE ==
[~2019-10-03] MED LIST changes: +HYDR-643 PO; +SULF1TAB30 PO
[2019-10-03 11:05] LABS: BASO # 0.1 10^3/uL (0.0-0.2); BASO % 0.7 % (0.0-1.0); EOS # 0.5 10^3/uL (0.0-0.5); EOS % 6.2 % (0.0-3.0); HEMATOCRIT 34.5 % (36.0-47.0); HEMOGLOBIN 9.8 g/dl (12.0-15.5); LYMPH # 1.4 10^3/uL (1.5-5.0); LYMPH % 16.5 % (24.0-44.0); MEAN CORPUSCULAR HEMOGLOBIN 21.5 pg (27.0-33.0); MEAN CORPUSCULAR HGB CONC 28.4 g/dl (32.0-36.5); MEAN CORPUSCULAR VOLUME 75.8 fl (80.0-96.0); MONO # 0.8 10^3/uL (0.0-0.8); MONO % 9.9 % (0.0-5.0); NEUTROPHILS # 5.6 10^3/uL (1.5-8.5); NEUTROPHILS % 66.5 % (36.0-66.0); PLATELET COUNT, AUTOMATED 283 10^3/uL (150-450); RED BLOOD COUNT 4.55 10^6/uL (4.00-5.40); WHITE BLOOD COUNT 8.4 10^3/uL (4.0-10.0)
[2019-10-03 11:32] LABS: ALBUMIN 3.4 GM/DL (3.2-5.2); ALT/SGPT 17 U/L (12-78); BILIRUBIN,TOTAL 0.3 MG/DL (0.2-1.0); BLOOD UREA NITROGEN 17 MG/DL (7-18); CALCIUM LEVEL 9.3 MG/DL (8.8-10.2); CARBON DIOXIDE LEVEL 31 MEQ/L (21-32); CHLORIDE LEVEL 103 MEQ/L (98-107); CREATININE FOR GFR 0.66 MG/DL (0.55-1.30); GLOMERULAR FILTRATION RATE > 60.0 (>45); GLUCOSE, FASTING 81 MG/DL (70-100); POTASSIUM SERUM 4.6 MEQ/L (3.5-5.1); SODIUM LEVEL 139 MEQ/L (136-145); TOTAL PROTEIN 7.1 GM/DL (6.4-8.2)
== END ==
LOC: M LAB 09:16
PROVIDERS: ATTEND Internal Medicine Infectious Disease
DX: J15.212 Pneumonia due to Methicillin resistant Staphylococcus aureus (principal)

== ENCOUNTER → 2019-10-13 | Outpatient (CLI) | payer MEDICARE, MEDICAID ==
--- NOTE | 2019-10-13 17:49 | REP ---
CT chest without contrast: History: Pulmonary mycobacterial infection. Comparison chest CT studies are reviewed. The most recent of these is from August 02, 2019. The most remote is from September 19, 2008. Recent prior CT studies have shown a recurrent shaggy irregular cavitary nodules in the upper and lower lung zones bilaterally. A few of these are cavitary. 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 In general, there has been some improvement since the August 02, 2019 prior study in these shaggy nodular opacities. Most are improved in size. No definite new nodule is seen. One or two are a little larger. Cavitary changes seen in one of the nodules in the left upper lobe posteriorly has improved. There is some peribronchial thickening in the upper lobes diffusely mild in degree. No pleural effusion is seen. No pericardial effusion is noted. There is left coronary artery vascular calcification. No adrenal lesion is seen. Impression: In general, there has been some interval improvement in the appearance of the shaggy bilateral pulmonary nodular densities since the most recent prior study of August 02, 2019. Large hiatal hernia and left coronary artery vascular calcification are again seen. Electronically Signed by Charles Guerra MD 10/13/2019 06:43 P
== END ==
LOC: M RAD 14:35
PROVIDERS: ATTEND Internal Medicine Infectious Disease
DX: K44.9 Diaphragmatic hernia without obstruction or gangrene (principal); A31.0 Pulmonary mycobacterial infection

== ENCOUNTER → 2019-10-18 | Outpatient (CLI) | payer MEDICARE, MEDICAID ==
[2019-10-18 11:46] LABS: HEMATOCRIT 33.5 % (36.0-47.0); HEMOGLOBIN 9.3 g/dl (12.0-15.5); MEAN CORPUSCULAR HEMOGLOBIN 21.3 pg (27.0-33.0); MEAN CORPUSCULAR HGB CONC 27.8 g/dl (32.0-36.5); MEAN CORPUSCULAR VOLUME 76.8 fl (80.0-96.0); PLATELET COUNT, AUTOMATED 274 10^3/uL (150-450); RED BLOOD COUNT 4.36 10^6/uL (4.00-5.40); WHITE BLOOD COUNT 7.2 10^3/uL (4.0-10.0)
--- NOTE | 2019-10-18 12:03 | REP ---
Clinical: Hypertension and fatigue . Comparison: 07/11/2019 . Technique: PA and lateral. Findings: The mediastinum and cardiac silhouette are normal. The lung hdz demonstrate chronic interstitial changes without acute consolidation, effusion, or pneumothorax. The skeletal structures are intact and stable. Evidence for right shoulder replacement. Impression: 1. Chronic interstitial changes. No acute cardiopulmonary process. Electronically Signed by Jackson Covington MD 10/18/2019 11:55 A
[2019-10-18 12:16] LABS: ALBUMIN 3.1 GM/DL (3.2-5.2); ALT/SGPT 20 U/L (12-78); BILIRUBIN,TOTAL 0.3 MG/DL (0.2-1.0); BLOOD UREA NITROGEN 13 MG/DL (7-18); CALCIUM LEVEL 8.7 MG/DL (8.8-10.2); CARBON DIOXIDE LEVEL 29 MEQ/L (21-32); CHLORIDE LEVEL 105 MEQ/L (98-107); CHOLESTEROL LEVEL 146 MG/DL (<200); CHOLESTEROL RISK RATIO 1.896 (<5); GLOMERULAR FILTRATION RATE > 60.0 (>45); GLUCOSE, FASTING 119 MG/DL (70-100); HDL CHOLESTEROL 77 MG/DL (>40); LDL CHOLESTEROL 57 MG/DL (<100); NON-HDL-C 69 MG/DL; POTASSIUM SERUM 4.4 MEQ/L (3.5-5.1); SODIUM LEVEL 141 MEQ/L (136-145); TOTAL PROTEIN 6.8 GM/DL (6.4-8.2); TRIGLYCERIDES LEVEL 59 MG/DL (<150)
[2019-10-18 13:31] LABS: HEMOGLOBIN A1c 5.3 %
--- NOTE | 2019-10-18 20:37 | ECGEPIP ---
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
== END ==
LOC: M LAB 11:01
PROVIDERS: ATTEND Family Medicine
DX: I10 Essential (primary) hypertension (principal); I25.10 Atherosclerotic heart disease of native coronary artery without angina pectoris; E03.9 Hypothyroidism, unspecified; R53.83 Other fatigue; R94.31 Abnormal electrocardiogram [ECG] [EKG]; Z79.899 Other long term (current) drug therapy

== ENCOUNTER 2019-11-14 08:24 | Day surgery (SDC) | payer MEDICARE, MEDICAID ==
[~2019-11-14] VITALS: Ht 163.8 cm; Wt 78.0 kg
[~2019-11-14 08:24] MED LIST changes: -INCR1INH IN; +INCR1INH INH; +NS 1,000 ML IV ONE
[2019-11-14] MEDS ORDERED: LIDOCAINE 2% INJ 100 MG/5 ML SDV (FOR ANES.) As Ordered ONE (08:54)
[2019-11-14] MEDS ORDERED: PROPOFOL 200 MG/20 ML VIAL As Ordered ONE (08:54)
[2019-11-14] MEDS ORDERED: fentaNYL 100 MCG/2 ML INJECTION (J3010) As Ordered ONE (09:24)
--- NOTE | 2019-11-14 10:35 | ROOR ---
Patient Name: Leanna Bob Procedure Date: 11/14/2019 9:45 AM Date of : 1955 Age: 64 Room: [facility] Gender: Female Note Status: Finalized Procedure: Upper GI endoscopy Indications: Iron deficiency anemia Providers: Maksim Fernando Jr, MD Referring MD: MIA SOL MD Requesting Provider: Medicines: Propofol per Anesthesia Complications: No immediate complications. Procedure: Pre-Anesthesia Assessment: - Prior to the procedure, a History and Physical was performed, and patient medications and allergies were reviewed. The patient is competent. The risks and benefits of the procedure and the sedation options and risks were discussed with the patient. All questions were answered and informed consent was obtained. Patient identification and proposed procedure were verified by the physician and the nurse in the pre-procedure area and in the procedure room. Mental Status Examination: alert and oriented. Airway Examination: normal oropharyngeal airway and neck mobility. Respiratory Examination: clear to auscultation. CV Examination: normal. ASA Grade Assessment: II - A patient with mild systemic disease. After reviewing the risks and benefits, the patient was deemed in satisfactory condition to undergo the procedure. The anesthesia plan was to use moderate sedation / analgesia (conscious sedation). Immediately prior to administration of medications, the patient was re-assessed for adequacy to receive sedatives. The heart rate, respiratory rate, oxygen saturations, blood pressure, adequacy of pulmonary ventilation, and response to care were monitored throughout the procedure. The physical status of the patient was re-assessed after the procedure. The Endoscope was introduced through the mouth, and advanced to the second part of duodenum. The upper GI endoscopy was accomplished without difficulty. The patient tolerated the procedure well. Findings: The upper third of the esophagus, middle third of the esophagus and lower third of the esophagus were normal. A medium-sized hiatal hernia was present. Patchy moderate inflammation with hemorrhage characterized by congestion (edema), erythema, friability and granularity was found in the gastric fundus. The gastric body, gastric antrum, prepyloric region of the stomach and pylorus were normal. The duodenal bulb, first portion of the duodenum and second portion of the duodenum were normal. Impression: - Normal upper third of esophagus, middle third of esophagus and lower third of esophagus. - Medium-sized hiatal hernia. - Gastritis with hemorrhage. - Normal gastric body, antrum, prepyloric region of the stomach and pylorus. - Normal duodenal bulb, first portion of the duodenum and second portion of the duodenum. - No specimens collected. Recommendation: - Discharge patient to home (ambulatory). - Return to my office as previously scheduled. Maksim Fernando MD Maksim Fernando Jr, MD 11/14/2019 10:35:22 AM Electronically signed by Maksim Fernando Jr, MD Number of Addenda: 0 Note Initiated On: 11/14/2019 9:45 AM Estimated Blood Loss: Estimated blood loss: none.
--- NOTE | 2019-11-14 10:52 | ROOR ---
Patient Name: Leanna Bob Procedure Date: 11/14/2019 9:46 AM Date of : 1955 Age: 64 Room: [facility] Gender: Female Note Status: Finalized Procedure: Colonoscopy Indications: Iron deficiency anemia Providers: Maksim Fernando Jr, MD Referring MD: MIA SOL MD Requesting Provider: Medicines: Propofol per Anesthesia Complications: No immediate complications. Procedure: Pre-Anesthesia Assessment: - Prior to the procedure, a History and Physical was performed, and patient medications and allergies were reviewed. The patient is competent. The risks and benefits of the procedure and the sedation options and risks were discussed with the patient. All questions were answered and informed consent was obtained. Patient identification and proposed procedure were verified by the physician and the nurse in the pre-procedure area and in the procedure room. Mental Status Examination: alert and oriented. Airway Examination: normal oropharyngeal airway and neck mobility. Respiratory Examination: clear to auscultation. CV Examination: normal. ASA Grade Assessment: III - A patient with severe systemic disease. After reviewing the risks and benefits, the patient was deemed in satisfactory condition to undergo the procedure. The anesthesia plan was to use moderate sedation / analgesia (conscious sedation). Immediately prior to administration of medications, the patient was re-assessed for adequacy to receive sedatives. The heart rate, respiratory rate, oxygen saturations, blood pressure, adequacy of pulmonary ventilation, and response to care were monitored throughout the procedure. The physical status of the patient was re-assessed after the procedure. The Colonoscope was introduced through the anus and advanced to the cecum, identified by appendiceal orifice and ileocecal valve. The colonoscopy was performed without difficulty. The patient tolerated the procedure well. The quality of the bowel preparation was fair. Findings: The rectum, recto-sigmoid colon, sigmoid colon, descending colon, transverse colon, ascending colon, cecum, appendiceal orifice and ileocecal valve appeared normal. Impression: - Preparation of the colon was fair. - The rectum, recto-sigmoid colon, sigmoid colon, descending colon, transverse colon, ascending colon, cecum, appendiceal orifice and ileocecal valve are normal. Recommendation: - Discharge patient to home (ambulatory). - Repeat colonoscopy in 10 years for screening purposes. Maksim Fernando MD Maksim Fernando Jr, MD 11/14/2019 10:52:06 AM Electronically signed by Maksim Fernando Jr, MD Number of Addenda: 0 Note Initiated On: 11/14/2019 9:46 AM Estimated Blood Loss: Estimated blood loss: none.
[2019-11-14 11:10] VITALS: BP 168/80
== END 2019-11-14 11:21 | disposition home or self-care (01) ==
LOC: M OPP 08:24
PROVIDERS: ATTEND Surgery
DX: K44.9 Diaphragmatic hernia without obstruction or gangrene (principal); K29.71 Gastritis, unspecified, with bleeding; D50.9 Iron deficiency anemia, unspecified; G47.30 Sleep apnea, unspecified; I25.2 Old myocardial infarction; Z79.899 Other long term (current) drug therapy; Z88.1 Allergy status to other antibiotic agents; Z88.8 Allergy status to other drugs, medicaments and biological substances
CPT/HCPCS: 43235; 45378; J3010

== ENCOUNTER → 2019-12-19 | Outpatient (REF) | payer MEDICARE, MEDICAID ==
[~2019-12-19] MED LIST changes: -NS 1,000 ML IV ONE; -ROPI0.5T PO; +ROPI0.5T3 PO; -ROPI1TAB PO; +ROPI1TAB3 PO
[2019-12-19 17:50] LABS: BASO % 0.6 % (0.0-1.0); EOS # 0.3 10^3/uL (0.0-0.5); EOS % 4.4 % (0.0-3.0); HEMATOCRIT 40.8 % (36.0-47.0); HEMOGLOBIN 11.9 g/dl (12.0-15.5); LYMPH # 1.5 10^3/uL (1.5-5.0); LYMPH % 23.4 % (24.0-44.0); MEAN CORPUSCULAR HEMOGLOBIN 24.5 pg (27.0-33.0); MEAN CORPUSCULAR HGB CONC 29.2 g/dl (32.0-36.5); MONO # 0.7 10^3/uL (0.0-0.8); MONO % 11.4 % (0.0-5.0); NEUTROPHILS # 3.8 10^3/uL (1.5-8.5); PLATELET COUNT, AUTOMATED 274 10^3/uL (150-450); RED BLOOD COUNT 4.86 10^6/uL (4.00-5.40); WHITE BLOOD COUNT 6.3 10^3/uL (4.0-10.0)
[2019-12-19 18:33] LABS: ALBUMIN 3.8 GM/DL (3.2-5.2); ALT/SGPT 22 U/L (12-78); BILIRUBIN,TOTAL 0.4 MG/DL (0.2-1.0); BLOOD UREA NITROGEN 9 MG/DL (7-18); C REACTIVE PROTEIN QUANTITATIV 0.69 MG/DL (0.00-0.30); CARBON DIOXIDE LEVEL 29 MEQ/L (21-32); CHLORIDE LEVEL 105 MEQ/L (98-107); CREATININE FOR GFR 0.73 MG/DL (0.55-1.30); FERRITIN 47 NG/ML (8-252); GLOMERULAR FILTRATION RATE > 60.0 (>45); GLUCOSE, FASTING 77 MG/DL (70-100); IRON (FE) 309 UG/DL (50-170); PERCENT SATURATION 79.6 % (13.2-45.0); POTASSIUM SERUM 4.2 MEQ/L (3.5-5.1); SODIUM LEVEL 139 MEQ/L (136-145); TOTAL IRON BINDING CAPACITY 388 UG/DL (250-450); TOTAL PROTEIN 7.1 GM/DL (6.4-8.2)
[2019-12-19 18:34] LABS: VITAMIN B12 LEVEL 883 PG/ML
[2019-12-19 18:35] LABS: FOLATE > 24.0 NG/ML
[2019-12-19 18:48] LABS: ERYTHROCYTE SEDIMENTATION RATE 9 mm/hr (0-30)
[2019-12-20 11:58] LABS: ALBUMIN 3.81 GM/DL (3.29-5.55); ALBUMIN % 53.7 % (55.8-66.1); ALPHA-1-GLOBULIN % 5.3 % (2.9-4.9); ALPHA-1-GLOBULINS 0.38 GM/DL (0.17-0.41); ALPHA-2-GLOBULINS 0.84 GM/DL (0.42-0.99); ALPHA-2-GLOBULINS % 11.8 % (7.1-11.8); BETA-1-GLOBULINS 0.47 GM/DL (0.28-0.60); BETA-1-GLOBULINS % 6.6 % (4.7-7.2); BETA-2-GLOBULINS 0.51 GM/DL (0.19-0.55); BETA-2-GLOBULINS % 7.2 % (3.2-6.5); GAMMA GLOBULIN % 15.4 % (11.1-18.8); GAMMA GLOBULINS 1.09 GM/DL (0.65-1.58)
== END ==
LOC: M SFHCRHEU 15:34
PROVIDERS: ATTEND Internal Medicine
DX: M05.79 Rheumatoid arthritis with rheumatoid factor of multiple sites without organ or systems involvement (principal); D64.9 Anemia, unspecified
CPT/HCPCS: 36415; 80053; 82607; 82728; 82746; 83550; 84165; 85025; 85652; 86140; G0463

== ENCOUNTER → 2019-12-26 | Outpatient (CLI) | payer MEDICARE, MEDICAID ==
[~2019-12-26] MED LIST changes: +ROPI0.5T PO; -ROPI0.5T3 PO; +ROPI1TAB PO; -ROPI1TAB3 PO
--- NOTE | 2019-12-27 02:34 | REP ---
Clinical: Bronchitis. Technique: PA and lateral. Comparison: 10/18/2019. Findings: Mediastinum and cardiac silhouette are within normal limits and stable. Hiatal hernia suggested. Lung hdz demonstrate stable chronic changes. No focal consolidation, effusion or pneumothorax. Skeletal structures are intact. Right shoulder replacement noted. Impression: Chronic stable changes. Hiatal hernia. Electronically Signed by Jackson Covington MD 12/27/2019 02:26 A
== END ==
LOC: M RAD 15:09
PROVIDERS: ATTEND Internal Medicine Pulmonary Disease
DX: J47.9 Bronchiectasis, uncomplicated (principal); R91.8 Other nonspecific abnormal finding of lung field

== ENCOUNTER 2020-02-02 05:07 | Emergency (ER) | payer MEDICARE, MEDICAID ==
[~2020-02-02] VITALS: Ht 157.5 cm; Wt 85.0 kg
[~2020-02-02 05:07] MED LIST changes: -ROPI0.5T PO; +ROPI0.5T3 PO; -ROPI1TAB PO; +ROPI1TAB3 PO
[2020-02-02] MEDS ORDERED: ACETAMINOPHEN 500 MG TAB PO ONE (06:15)
[2020-02-02 06:51] LABS: BASO # 0.1 10^3/uL (0.0-0.2); BASO % 0.4 % (0.0-1.0); EOS # 0.4 10^3/uL (0.0-0.5); EOS % 3.2 % (0.0-3.0); HEMOGLOBIN 12.8 g/dl (12.0-15.5); LYMPH # 0.9 10^3/uL (1.5-5.0); LYMPH % 6.9 % (24.0-44.0); MEAN CORPUSCULAR HEMOGLOBIN 28.1 pg (27.0-33.0); MEAN CORPUSCULAR HGB CONC 32.8 g/dl (32.0-36.5); MEAN CORPUSCULAR VOLUME 85.7 fl (80.0-96.0); MONO # 1.2 10^3/uL (0.0-0.8); MONO % 8.5 % (0.0-5.0); NEUTROPHILS # 10.9 10^3/uL (1.5-8.5); NEUTROPHILS % 80.6 % (36.0-66.0); PLATELET COUNT, AUTOMATED 233 10^3/uL (150-450); RED BLOOD COUNT 4.55 10^6/uL (4.00-5.40); WHITE BLOOD COUNT 13.5 10^3/uL (4.0-10.0)
[2020-02-02] MEDS ORDERED: ISOVUE-370 76% 100ML VIAL (Q9967) As Ordered ONE (06:58)
--- NOTE | 2020-02-02 07:07 | REPVR ---
PROCEDURE INFORMATION: Exam: US Duplex Right Lower Extremity Veins, Limited Exam date and time: 02/02/2020 6:44 AM Age: 64 years old Clinical indication: Pain; Leg, lower; Right; Additional info: Swell/pain leg TECHNIQUE: Imaging protocol: Real-time Duplex ultrasound of the Right Lower Extremity with 2-D robison scale, color Doppler flow and spectral waveform analysis with image documentation. Limited exam was focused on the right lower extremity veins. COMPARISON: US Duplex, Ext,LOWER veins,unilat 04/24/2016 1:12 AM FINDINGS: Right deep veins: Unremarkable. The common femoral, femoral, proximal profunda femoral and popliteal veins are patent without thrombus. Normal Doppler waveforms. Normal compressibility and/or augmentation response. Right superficial veins: Unremarkable. Saphenofemoral junction is patent without thrombus. Soft tissues: Unremarkable. IMPRESSION: No acute findings. No evidence of deep vein thrombosis. Electronically signed by: Reagan Walker On 02/02/2020 07:07:07 AM
[2020-02-02 07:12] LABS: BLOOD UREA NITROGEN 13 MG/DL (7-18); CALCIUM LEVEL 7.5 MG/DL (8.8-10.2); CARBON DIOXIDE LEVEL 27 MEQ/L (21-32); CHLORIDE LEVEL 100 MEQ/L (98-107); CREATININE FOR GFR 0.39 MG/DL (0.55-1.30); GLOMERULAR FILTRATION RATE > 60.0 (>45); GLUCOSE, FASTING 77 MG/DL (70-100); POTASSIUM SERUM 3.7 MEQ/L (3.5-5.1); SODIUM LEVEL 132 MEQ/L (136-145); VALPROIC ACID (DEPAKOTE) 25.8 UG/ML (50.0-100.0)
[2020-02-02 07:14] LABS: INR 1.09; PROTHROMBIN TIME 13.8 SECONDS (11.8-14.0)
[2020-02-02 07:15] LABS: PARTIAL THROMBOPLASTIN TIME 31.9 SECONDS (25.0-38.4)
--- NOTE | 2020-02-02 07:39 | REPVR ---
PROCEDURE INFORMATION: Exam: CT Angiography Chest With Contrast Exam date and time: 02/02/2020 6:42 AM Age: 64 years old Clinical indication: Dyspnea; Additional info: Dysp TECHNIQUE: Imaging protocol: Computed tomographic angiography of the chest with intravenous contrast. 3D rendering: MIP and/or 3D reconstructed images were created by the technologist. Radiation optimization: All CT scans at this facility use at least one of these dose optimization techniques: automated exposure control; mA and/or kV adjustment per patient size (includes targeted exams where dose is matched to clinical indication); or iterative reconstruction. Contrast material: ISO; Contrast volume: 75 ml; Contrast route: AC; COMPARISON: CT Chest without contrast 10/13/2019 2:48 PM FINDINGS: Pulmonary arteries: Normal. No pulmonary emboli. Aorta: Unremarkable. No aortic aneurysm. No aortic dissection. Lungs: There is bilateral bronchial and bronchiolar wall thickening. There is patchy irregular opacities predominantly in the upper lobes. Few or small opacities seen in the right lower lobe with a pleural based nodule like opacity measuring 0.9 x 0.7 cm. There is a 6 mm nodule in the right lower lobe on axial image 100. Pleural space: Unremarkable. No pneumothorax. No pleural effusion. Heart: There is severe LAD calcifications. No cardiomegaly. No pericardial effusion. Mediastinum: There is a large hiatal hernia with mesentero axial rotation of the stomach in the posterior mediastinum. Lymph nodes: There are prominent lymph nodes in the AP window, pretracheal and precarinal space with the largest lymph node in the precarinal region measuring 2.2 x 1.7 cm. A prominent right hilar lymph node measuring 2.1 x 1.3 cm seen. Small left hilar lymph nodes seen. Bones/joints: Mid to lower thoracic spine multilevel DJD seen. Soft tissues: Unremarkable. IMPRESSION: 1. No CT evidence pulmonary embolism or right heart strain. 2. Bronchial and bronchiolar wall thickening suggestive bronchitis/bronchiolitis. 3. Patchy irregular predominantly upper lobe opacities in addition to few small opacities in the right lower lobe could represent early patchy infiltrates. Follow-up is suggested. 4. Right lower lobe pleural base nodule like opacity measuring 0.9 cm in addition to 6 mm nodule in the apical segment of the right lower lobe. Follow-up CT scan in 3 months is suggested as per Fleischner Society recommendations. 5. Enlarged mediastinal and hilar lymph nodes. These could be reactive to the above described pulmonary process however follow-up is recommended. 6. Large hiatal hernia almost containing the entire stomach with mesenteroaxial rotation Electronically signed by: Reagan Walker On 02/02/2020 07:38:58 AM
[2020-02-02] MEDS ORDERED: VANCOMYCIN HCL 1,000 MG, VIAL MATE ADAPTER 1 EACH in D5W 250 ML IV STA (08:00)
[2020-02-02] MEDS ORDERED: BACT800T5 PO (08:02)
[2020-02-02] MEDS ORDERED: IBUPROFEN 400 MG TAB PO ONE (08:15)
[2020-02-02 09:30] VITALS: BP 155/76
--- NOTE | 2020-02-06 11:30 | ED PDOC ---
Post-Departure Follow-Up dr chaudhary faxed formal report of cta chest for fu John Bridges MD Feb 06, 2020 11:30
== END 2020-02-02 09:46 | disposition home or self-care (01) ==
LOC: M ED 05:07
DX: R60.0 Localized edema (principal); L03.115 Cellulitis of right lower limb; R91.1 Solitary pulmonary nodule; R91.8 Other nonspecific abnormal finding of lung field; R59.9 Enlarged lymph nodes, unspecified; K44.9 Diaphragmatic hernia without obstruction or gangrene; I25.10 Atherosclerotic heart disease of native coronary artery without angina pectoris; I10 Essential (primary) hypertension; K21.9 Gastro-esophageal reflux disease without esophagitis; E03.9 Hypothyroidism, unspecified; J44.1 Chronic obstructive pulmonary disease with (acute) exacerbation; M06.9 Rheumatoid arthritis, unspecified; F33.9 Major depressive disorder, recurrent, unspecified; Z87.891 Personal history of nicotine dependence; Z88.1 Allergy status to other antibiotic agents; Z79.51 Long term (current) use of inhaled steroids; Z79.899 Other long term (current) drug therapy
CPT/HCPCS: 71275; 80048; 80164; 85025; 85610; 85730; 87040; 93971; 96365; 99284; J3370; Q9967

== ENCOUNTER 2020-02-04 11:08 | Emergency (ER) | payer MEDICARE, MEDICAID ==
[~2020-02-04] VITALS: Ht 162.6 cm; Wt 87.9 kg
[~2020-02-04 11:08] MED LIST changes: +BACT800T5 PO
[2020-02-04 12:05] LABS: BASO % 0.5 % (0.0-1.0); EOS # 0.4 10^3/uL (0.0-0.5); EOS % 4.4 % (0.0-3.0); HEMATOCRIT 39.4 % (36.0-47.0); HEMOGLOBIN 12.5 g/dl (12.0-15.5); LYMPH # 0.9 10^3/uL (1.5-5.0); LYMPH % 9.7 % (24.0-44.0); MEAN CORPUSCULAR HEMOGLOBIN 27.7 pg (27.0-33.0); MEAN CORPUSCULAR HGB CONC 31.7 g/dl (32.0-36.5); MEAN CORPUSCULAR VOLUME 87.2 fl (80.0-96.0); MONO # 0.8 10^3/uL (0.0-0.8); MONO % 8.8 % (0.0-5.0); NEUTROPHILS # 6.8 10^3/uL (1.5-8.5); NEUTROPHILS % 76.3 % (36.0-66.0); PLATELET COUNT, AUTOMATED 235 10^3/uL (150-450); RED BLOOD COUNT 4.52 10^6/uL (4.00-5.40); WHITE BLOOD COUNT 8.9 10^3/uL (4.0-10.0)
[2020-02-04 12:32] LABS: BLOOD UREA NITROGEN 10 MG/DL (7-18); CARBON DIOXIDE LEVEL 32 MEQ/L (21-32); CHLORIDE LEVEL 91 MEQ/L (98-107); CREATININE FOR GFR 0.49 MG/DL (0.55-1.30); GLOMERULAR FILTRATION RATE > 60.0 (>45); GLUCOSE, FASTING 101 MG/DL (70-100); POTASSIUM SERUM 4.6 MEQ/L (3.5-5.1); SODIUM LEVEL 128 MEQ/L (136-145)
[2020-02-04] MEDS ORDERED: CLINDAMYCIN 900 MG in IV 1 EA IV ONE (13:00)
[2020-02-04 15:42] VITALS: BP 144/77
== END 2020-02-04 15:44 | disposition home or self-care (01) ==
LOC: M ED 11:08
DX: L03.115 Cellulitis of right lower limb (principal); I25.10 Atherosclerotic heart disease of native coronary artery without angina pectoris; I10 Essential (primary) hypertension; E78.5 Hyperlipidemia, unspecified; K21.9 Gastro-esophageal reflux disease without esophagitis; G47.30 Sleep apnea, unspecified; Z85.41 Personal history of malignant neoplasm of cervix uteri; F17.210 Nicotine dependence, cigarettes, uncomplicated; Z88.1 Allergy status to other antibiotic agents; Z79.51 Long term (current) use of inhaled steroids; Z79.899 Other long term (current) drug therapy

== ENCOUNTER 2020-02-10 09:11 | Inpatient (IN) | payer MEDICARE, MEDICAID ==
[~2020-02-10] VITALS: Ht 162.6 cm; Wt 86.6 kg
[2020-02-10 10:03] LABS: BASO # 0.1 10^3/uL (0.0-0.2); BASO % 0.9 % (0.0-1.0); EOS # 0.6 10^3/uL (0.0-0.5); HEMATOCRIT 36.7 % (36.0-47.0); HEMOGLOBIN 11.8 g/dl (12.0-15.5); LYMPH # 0.9 10^3/uL (1.5-5.0); MEAN CORPUSCULAR HEMOGLOBIN 28.4 pg (27.0-33.0); MEAN CORPUSCULAR HGB CONC 32.2 g/dl (32.0-36.5); MEAN CORPUSCULAR VOLUME 88.4 fl (80.0-96.0); MONO # 0.8 10^3/uL (0.0-0.8); MONO % 12.2 % (0.0-5.0); NEUTROPHILS # 4.2 10^3/uL (1.5-8.5); NEUTROPHILS % 63.6 % (36.0-66.0); PLATELET COUNT, AUTOMATED 238 10^3/uL (150-450); RED BLOOD COUNT 4.15 10^6/uL (4.00-5.40); WHITE BLOOD COUNT 6.6 10^3/uL (4.0-10.0)
--- NOTE | 2020-02-10 12:29 | REP ---
Duplex extremity venous ultrasound: Bilateral lower extremities. History: Progressive edema. Bilateral lower extremity edema since February 04, 2020. Rule out DVT. Findings: The deep veins are anechoic and fully compressible from the groin to the popliteal fossa in the left and right lower extremity. Color flow imaging is homogeneous. Spectral Doppler interrogation demonstrates intact respiratory variation in flow and normal manual augmentation of flow. There is no evidence of deep vein thrombosis. There is a 3.4 x 1.6 centimeter hypertrophied lymph node in the right groin. In the left groin there is a normal-appearing lymph node measuring 1.8 cm in greatest diameter. Impression: Negative bilateral lower extremity duplex venous ultrasound. No evidence of deep vein thrombosis. Hypertrophied appearing lymph node right groin 3.4 cm in greatest diameter. Electronically Signed by Charles Guerra MD 02/10/2020 12:19 P
--- NOTE | 2020-02-10 12:31 | REP ---
Soft tissue sonography bilateral lower legs: History: Worsening erythema and edema since February 04, 2020. Findings: Scanning in the right lower leg in the area of redness shows severe diffuse deep subcutaneous edema. There is a elongate fluid appearance at this q. fascial interface of the calf 18.5 cm in length on the right. No focal wall off for drainable fluid collection is seen. On the left side which was scanned for comparison, no similar findings are observed. Impression: Severe diffuse subcutaneous edema with thin fluid appearance at the subcutaneous fat/muscle interface right calf. No walled off or drainable fluid collection is seen. Electronically Signed by Charles Guerra MD 02/10/2020 12:22 P
[2020-02-10] MEDS ORDERED: ISOVUE-370 76% 100ML VIAL (Q9967) As Ordered ONE (14:30)
[2020-02-10] MEDS ORDERED: IPRATROPIUM 0.5MG/ALBUTEROL 2.5MG INH SOL UD 3ML (DUONEB)(J7620) NEB PRN (16:15)
[2020-02-10] MEDS ORDERED: ACETAMINOPHEN TAB 650MG DOSE (2X325MG) PO PRN (16:15)
--- NOTE | 2020-02-10 16:20 | REP ---
CT ANGIOGRAM OF THE CHEST: TECHNIQUE: Axial contrast enhanced images from the thoracic inlet to the upper abdomen using 100 mL Isovue 370 intravenous contrast material with multiplanar reformations. COMPARISON: 02/02/[address] evidence of pulmonary embolism. There is no thoracic aortic aneurysm or dissection. There is mild cardiomegaly. There is no pleural or pericardial effusion. Several subcentimeter axillary, mediastinal and hilar lymph nodes are seen. There is a mildly enlarged right hilar lymph node 1.3 cm in short axis which may be reactive. There is a large hiatal hernia. Diffuse thickening of bronchiolar mcginnis is again noted unchanged. Diffuse interstitial thickening in the upper lobes and lower lobes is unchanged appearing similar to the prior study. There is a small peripheral infiltrate in the right upper lobe anteriorly, the epicenter is on image 34. There is increased peripheral infiltrate in the right lower lobe, also relatively small in size, seen on image 57. No other new abnormal parenchymal opacities are seen bilaterally. There are degenerative changes of the spine. There is a stable subcentimeter subpleural nodule on image 47 in the right lower lobe. IMPRESSION: No CT evidence of pulmonary embolism. Small peripheral infiltrates right upper and lower lobes. No change in bilateral interstitial thickening as well as bronchiolar wall thickening. Mild right hilar adenopathy may be reactive. Electronically Signed by Romeo Tovar MD 02/10/2020 04:33 P
--- NOTE | 2020-02-10 16:39 | HPEPDOC ---
General Date of Admission Feb 10, 2020 at 16:07 Date of Service: Feb 10, 2020 Chief Complaint The patient is a 64-year-old female Who presented to the emergency room after experiencing worsening right lower extremity redness, warmth and tenderness History of Present Illness Patient is 64-year-old female with a PMHx of CAD s/p Stent (Hx of AL 2013), Hypothyroidism, RA, HTN, DLP, COPD / Asthma / Hx of MAC who presented to the emergency room after experiencing worsening of her right lower extremity warmth, tenderness and swelling. Patient presented to the emergency room on 02/01, with right lower extremity warmth, tenderness and swelling. She was prescribed Bactrim with instructions to fill the prescription. Patient reported back to the emergency room on 02/03 and indicated that she was too weak to complete her prescription. Repeat lab work was completed and indicated that she did not have any evidence of sepsis. Patient was again advised to complete antibiotics. Patient presented again on 02/09, today after taking her antibiotic and her right lower extremity appeared to have worsening of her redness, warmth and tenderness. Patient denies any fevers or chills at home. She denies nausea, vomiting, shortness of breath, chest pain or palpitations. She reports that she has a chronic cough that has worsened with increased production of green sputum Patient denies any abdominal pain, constipation, diarrhea, or urinary discomfort. She does report that her appetite is fairly normal and denies any significant changes in her weight. Home Medications Scheduled Aripiprazole (Aripiprazole) 5 Mg Tab, 5 MG PO DAILY, (Reported) Divalproex Sodium (Depakote ER) 500 Mg Tab, 500 MG PO DAILY, (Reported) Duloxetine Hcl (Duloxetine HCl) 60 Mg Cap, 60 MG PO DAILY, (Reported) Fluticasone/Vilanterol (Breo Ellipta 200-25 Mcg INH) 1 Inh Inh, 1 PUFF INH DAILY, (Reported) Levothyroxine Sodium (Levothyroxine Sodium) 150 Mcg Tab, 150 MCG PO DAILY, (Reported) Pantoprazole Sodium (Pantoprazole Sodium) 20 Mg Tab, 20 MG PO DAILY, (Reported) Ropinirole HCl (Ropinirole HCl) 1 Mg Tab, 1 MG PO QHS, (Reported) Sulfamethoxazole/Trimethoprim (Bactrim Ds Tablet) 1 Each Tablet, 1 TAB PO Q12H Trazodone HCl (Trazodone HCl) 50 Mg Tab, 100 MG PO QHS, (Reported) Umeclidinium [place] (Incruse Ellipta) 62.5 Mcg/Inh Inh, 62.5 MCG INH DAILY, (Reported) Scheduled PRN Albuterol Sulfate (Proair Hfa) 108 Mcg/Act Aer, 2 PUFF INH QID PRN for SHORTNESS OF BREATH, (Reported) Allergies Coded Allergies: doxycycline (Verified Allergy, Intermediate, HIVES, 02/02/20) hydroxyzine (Verified Allergy, Intermediate, HIVES, 02/02/20) Uncoded Allergies: bandaid (Allergy, Mild, red, swollen, 02/10/20) Past Medical History Medical History CAD s/p Stent (Hx of AL 2013), Hypothyroidism, RA, HTN, DLP, COPD / Asthma / Hx of MAC Surgical History Bilateral knee replacements Bilateral hip replacements Right shoulder replacement Family History - Mother with no reported past medical history - Father with an unknown past medical history - No history of malignancies Social History - Denies the use of tobacco or illicit drugs; patient reports that she socially drinks alcohol - Denies recent travel or sick contacts - Lives with alone - Occupation; currently retired but used to work at [employer] Review of Systems Other systems 10 point review of systems complete, all negative otherwise stated in HPI Vital Signs - Vitals: BP 184/83, HR 91, RR 18, Sat 93%RA, Temp 97.3F - General: Lying in bed, Speaking in full sentences, AAOx3 - HEENT: NC, AT, PERRLA - CVS: RRR, +S1S2 - Lungs: Fair air entry bilaterally, No appreciable wheezing / rales / rhonchi - Abdomen: Soft, Non-distended, Non-tender - Extremities: 1+ pitting edema at R leg, No calf tenderness - Neuro: No focal motor or sensory deficit - Skin: Right lower extremity with erythema, warmth and tenderness Laboratory Data Labs 24H Laboratory Tests 2 02/10/20 09:37: SA-Zsd-[id number]-Type Natriuretic Peptide 310H 02/10/20 09:45: Immature Granulocyte % (Auto) 0.3, Neutrophils (%) (Auto) 63.6, Lymphocytes (%) (Auto) 14.0L, Monocytes (%) (Auto) 12.2H, Eosinophils (%) (Auto) 9.0H, Basophils (%) (Auto) 0.9, Neutrophils # (Auto) 4.2, Lymphocytes # (Auto) 0.9L, Monocytes # (Auto) 0.8, Eosinophils # (Auto) 0.6H, Basophils # (Auto) 0.1, Nucleated Red Blood Cells % (auto) 0.0, D-Dimer, Quantitative 1980.51H, Lactic Acid Level 0.9 02/10/20 09:50: POC Glucose (Misc Panel) 105, POC Sodium (Misc Panel) 128L, POC Potassium (Misc Panel) 4.6, POC Chloride (Misc Panel) 90L, POC Total CO2 (Misc Panel) 31.0H, POC Blood Urea Nitrogen (Misc Panel 13, POC Ionized Calcium (Misc Panel) 4.8, POC Creatinine (Misc Panel) 0.7, POC Hematocrit (Misc Panel) 39.0 CBC/BMP Laboratory Tests 02/10/20 09:45 Microbiology Microbiology 02/10/20 Respiratory Virus Panel (PCR) (BRITNEY), Received Pending 02/10/20 Blood Culture, Received Pending 02/10/20 Blood Culture, Received Pending Plan / VTE VTE Prophylaxis Ordered?: Yes Plan Plan Right lower extremity cellulitis / Community acquired pneumonia - Patient has presented to the emergency room with complaints of worsening right lower extremity erythema, warmth and tenderness after completing antibiotics - Patient has failed Bactrim therapy as an outpatient - Currently is hemodynamically stable and afebrile - No leukocytosis; No lactic acidosis - Blood cultures pending - Will check MRSA screen - US RLE 02/09: Severe diffuse subcutaneous edema with thin fluid appearance at the subcutaneous fat/muscle interface right calf. No walled off or drainable fluid collection is seen. - Duplex US 02/09: Negative bilateral lower extremity duplex venous ultrasound. No evidence of deep vein thrombosis. Hypertrophied appearing lymph node right groin 3.4 cm in greatest diameter. - Will start patient on Ceftaroline for SSTI / CAP / MRSA coverage Productive cough - likely 2/2 CAP - Currently, patient is saturating on room air. His hemodynamics are stable and afebrile - Patient had an elevated d-dimer; so subsequent CT angiogram was completed in the emergency room - CTA 02/09: No CT evidence of pulmonary embolism. Small peripheral infiltrates right upper and lower lobes. No change in bilateral interstitial thickening as well as bronchiolar wall thickening. Mild right hilar adenopathy may be reactive. - Suspicion of viral infection by ER provider was noted - Currently, patient has respiratory panel pending - Antibiotics (See above) - Will follow precautionary measures at this time Hyponatremia (mild) - possibly 2/2 hypotonic euvolemic etiology - likely 2/2 medications - Currently, patient appears to be euvolemic - Hemodynamically stable - Will check osmolality of serum and urine, urine electrolytes, thyroid function, cortisol baseline - Will hold off on IV fluid hydration at this point - Will hold Duloxetine / Aripiprazole - Will start fluid restrictions Normocytic anemia - Hg appears to be at baseline - Will continue to monitor CAD s/p Stent - Hx of AL 2013 - Currently not on antiplatelet therapy Hypothyroidism - c/w Levothyroxine RA - c/w Tylenol PRN HTN - BP moderately elevated - Currently not on any medications - Will start Amlodipine DLP - Currently not on any therapy COPD / Asthma / Hx of MAC - No evidence of exacerbation at this time - Continue with inhaled therapy as ordered RLS - c/w Ropinirole GERD - c/w Protonix DVT prophylaxis - Will start Heparin KARLA MAK MD Feb 10, 2020 16:39
[2020-02-10] MEDS ORDERED: CYCL10TA PO (16:57)
[2020-02-10] MEDS ORDERED: ARIP1TAB PO (16:57)
[2020-02-10] MEDS ORDERED: TRAZ-257 PO (16:57)
[2020-02-10] MEDS ORDERED: SULF1TAB93 PO (16:57)
[2020-02-10] MEDS ORDERED: MECL12.589 PO (16:57)
[2020-02-10] MEDS ORDERED: SYNT125T PO (16:57)
[2020-02-10] MEDS ORDERED: COMBIVENT RESPIMAT 100-20MCG INHALER 4GM INH PRN (17:30)
[2020-02-10 17:36] VITALS: BP 141/79
[2020-02-10 17:39] LABS: FREE T4 0.67 NG/DL (0.76-1.46); THYROID STIMULATING HORMONE 28.1 uIU/ML (0.358-3.740)
[2020-02-10 17:46] LABS: CORTISOL BASELINE 11.1 UG/DL (4.3-22.4)
[2020-02-10 17:47] LABS: TOTAL T3 42.4 NG/DL (60.0-181.0)
--- NOTE | 2020-02-10 18:44 | ECGEPIP ---
[facility] - ED Test Date: 2020-02-10 Pat Name: TEDDY GOODWIN Department: Room: - Gender: Female Critical Systems Technician: ELY : 1955 Requested By: Yun Ren GAME DESIGNER/CREATIVE DIRECTOR Order Number: [id number] Reading MD: Lucila Lan Measurements Intervals [place] Rate: 86 P: 0 AL: 183 QRS: 64 QRSD: 103 T: 64 QT: 352 QTc: 423 Interpretive Statements SINUS RHYTHM POSSIBLE LEFT ATRIAL ENLARGEMENT MODERATE T-WAVE ABNORMALITY SIMILAR 10/18/19 Electronically Signed on 02-10-2020 18:43:56 EDT by Lucila Lan
[2020-02-10] MEDS: ADVAIR HFA 230/21MCG INHALER INH SCH (19:55)
[2020-02-10] MEDS: IPRATROPIUM 0.5MG/ALBUTEROL 2.5MG INH SOL UD 3ML (DUONEB)(J7620) NEB SCH (19:55)
[2020-02-10 20:00] VITALS: BP 133/66
[2020-02-10] MEDS: rOPINIRole 1MG TAB PO SCH (20:50)
[2020-02-10] MEDS: HEPARIN SOD (PORCINE) 5000 UNITS/ML VIAL (J1644 PER 1000UNITS) SC SCH (20:51)
[2020-02-10] MEDS: CEFTAROLINE FOSAMIL 600 MG in D5W MINI-BAG PLUS 50 ML IV SCH (21:10)
[2020-02-11] MEDS: CYCLOBENZAPRINE 10 MG TAB PO PRN ×2 (01:08→20:48)
[2020-02-11] MEDS: ACETAMINOPHEN TAB 650MG DOSE (2X325MG) PO PRN ×2 (01:09→19:31)
[2020-02-11] MEDS: IPRATROPIUM 0.5MG/ALBUTEROL 2.5MG INH SOL UD 3ML (DUONEB)(J7620) NEB SCH ×4 (01:21→20:30)
[2020-02-11] MEDS: HEPARIN SOD (PORCINE) 5000 UNITS/ML VIAL (J1644 PER 1000UNITS) SC SCH ×3 (05:03→20:48)
[2020-02-11] MEDS: CEFTAROLINE FOSAMIL 600 MG in D5W MINI-BAG PLUS 50 ML IV SCH ×2 (05:03→16:56)
[2020-02-11] MEDS ORDERED: LEVOTHYROXINE 125MCG TABLET (0.125MG) PO SCH (06:00)
[2020-02-11 06:31] VITALS: BP 141/82
[2020-02-11 07:34] LABS: BASO # 0.1 10^3/uL (0.0-0.2); BASO % 0.7 % (0.0-1.0); EOS # 0.6 10^3/uL (0.0-0.5); EOS % 9.3 % (0.0-3.0); HEMATOCRIT 36.5 % (36.0-47.0); HEMOGLOBIN 11.5 g/dl (12.0-15.5); LYMPH % 14.6 % (24.0-44.0); MEAN CORPUSCULAR HGB CONC 31.5 g/dl (32.0-36.5); MONO # 0.7 10^3/uL (0.0-0.8); MONO % 10.9 % (0.0-5.0); NEUTROPHILS # 4.4 10^3/uL (1.5-8.5); NEUTROPHILS % 64.1 % (36.0-66.0); PLATELET COUNT, AUTOMATED 238 10^3/uL (150-450); WHITE BLOOD COUNT 6.8 10^3/uL (4.0-10.0)
[2020-02-11 07:36] LABS: BLOOD UREA NITROGEN 9 MG/DL (7-18); C REACTIVE PROTEIN QUANTITATIV 2.33 MG/DL (0.00-0.30); CALCIUM LEVEL 8.7 MG/DL (8.8-10.2); CARBON DIOXIDE LEVEL 31 MEQ/L (21-32); CHLORIDE LEVEL 93 MEQ/L (98-107); CREATININE FOR GFR 0.61 MG/DL (0.55-1.30); GLOMERULAR FILTRATION RATE > 60.0 (>45); GLUCOSE, FASTING 96 MG/DL (70-100); MAGNESIUM LEVEL 1.7 MG/DL (1.8-2.4); SODIUM LEVEL 127 MEQ/L (136-145)
[2020-02-11] MEDS: ADVAIR HFA 230/21MCG INHALER INH SCH ×2 (07:41→20:30)
[2020-02-11] MEDS ORDERED: MAG SULF 1GM/100ML (MAG RUN) 1 GM in IV 1 EA IV ONE (08:30)
[2020-02-11] MEDS: guaiFENesin ER 600 MG TAB PO SCH ×2 (09:38→20:48)
[2020-02-11] MEDS: PANTOPRAZOLE 20 MG TAB PO SCH (09:40)
[2020-02-11] MEDS: DIVALPROEX 500MG *ER* TAB PO SCH (09:40)
--- NOTE | 2020-02-11 09:43 | IPNPDOC ---
Text Note Date of Service The patient was seen on 02/11/20. NOTE Subjective: Patient is 64-year-old female with a PMHx of CAD s/p Stent (Hx of [place] 2013), Hypothyroidism, RA, HTN, DLP, COPD / Asthma / Hx of MAC who presented to the emergency room after experiencing worsening of her right lower extremity warmth, tenderness and swelling. She presented to the emergency room on 02/01, with right lower extremity warmth, tenderness and swelling. She was prescribed Bactrim with instructions to fill the prescription. Patient reported back to the emergency room on 02/03 and indicated that she was too weak to fill her prescr iption. Repeat lab work was completed and indicated that she did not have any evidence of sepsis. Patient was again advised to complete antibiotics. Patient presented again on 02/09, today after taking her antibiotic and her right lower extremity appeared to have worsening of her redness, warmth and tenderness. Patient was admitted to hospitalist service for further evaluation and treatment of right lower extremity cellulitis. Patient was seen and examined at the bedside. Patient denies any shortness of breath, chest pain or palpitations. She does report a mildly productive cough with clear sputum. She denies any abdominal pain, nausea, vomiting, diarrhea or urinary discomfort. She does report that her right lower extremity is unchanged. Objective: Vitals (See below) General: Lying in bed, no acute distress, comfortable, AAOx3 HEENT: NC, AT CVS: RRR, +S1S2 Lungs: Fair air entry b/l, no appreciable wheezing, rhonchi or rales Abdomen: Soft, ND, NT Extremities: RLE with 1+ edema, left lower extremity without edema Skin: Right lower extremity with area of erythema, warmth and tenderness relatively unchanged from yesterday, not progressing Assessment and plan: Right lower extremity cellulitis / Community acquired pneumonia - Clinically still has RLE cellulitis - not progressed from demarkation lines - Patient has failed Bactrim therapy as an outpatient - Remains hemodynamically stable and afebrile - No leukocytosis; No lactic acidosis - Blood cultures pending - MRSA screen pending - US RLE 02/09: Severe diffuse subcutaneous edema with thin fluid appearance at the subcutaneous fat/muscle interface right calf. No walled off or drainable fluid collection is seen. - Duplex US 02/09: Negative bilateral lower extremity duplex venous ultrasound. No evidence of deep vein thrombosis. Hypertrophied appearing lymph node right groin 3.4 cm in greatest diameter. - c/w Ceftaroline for SSTI / CAP / MRSA coverage Productive cough - possibly 2/2 CAP - Currently, patient is saturating on room air. His hemodynamics are stable and afebrile - Patient had an elevated d-dimer; so subsequent CT angiogram was completed in the emergency room - CTA 02/09: No CT evidence of pulmonary embolism. Small peripheral infiltrates right upper and lower lobes. No change in bilateral interstitial thickening as well as bronchiolar wall thickening. Mild right hilar adenopathy may be reactive. - Suspicion of viral infection by ER provider was noted - Respiratory panel 02/09: Negative - Sputum culture pending - Antibiotics (See above) - Will follow precautionary measures at this time Hyponatremia (mild) - likely 2/2 hypotonic etiology - likely 2/2 euvolemic etiology - likely 2/2 medications - Remains euvolemic and hemodynamically stable - Osmolality of urine, urine electrolytes - Thyroid function noted to reflect hypothyroidism - Cortisol baseline appears low; will recheck (BP remain adequate) - Continue to hold off IV fluid hydration at this point and continue with fluid restrictions (1500 cc only) - Continue to hold Duloxetine / Aripiprazole Hypomagnesemia - Will supplement Normocytic anemia - Hg appears to be at baseline - Will continue to monitor CAD s/p Stent - Hx of [place] 2013 - Currently not on antiplatelet therapy Hypothyroidism - TSH level elevated and T4 levels low; - c/w Levothyroxine; will increase dose RA - c/w Tylenol PRN HTN - BP is better controlled this morning - Currently not on any medications - c/w Amlodipine DLP - Currently not on any therapy COPD / Asthma / Hx of MAC - No evidence of exacerbation at this time - Continue with inhaled therapy as ordered RLS - c/w Ropinirole GERD - c/w Protonix DVT prophylaxis - c/w Heparin VS,Fishbone, I+O VS, Fishbone, I+O Laboratory Tests 02/10/20 09:45 02/11/20 06:42 Vital Signs Date Time Temp Pulse Resp B/P (MAP) Pulse Ox O2 Delivery O2 Flow Rate FiO2 02/11/20 06:31 98.2 82 18 141/82 (101) 96 Room Air I&O- Last 24 Hours up to 6 AM 02/11/20 06:00 Intake Total 850 ml Balance 850 ml KARLA MAK MD Feb 11, 2020 09:43
[2020-02-11 13:26] LABS: BLOOD UREA NITROGEN 9 MG/DL (7-18); CARBON DIOXIDE LEVEL 31 MEQ/L (21-32); CHLORIDE LEVEL 93 MEQ/L (98-107); CREATININE FOR GFR 0.56 MG/DL (0.55-1.30); GLOMERULAR FILTRATION RATE > 60.0 (>45); GLUCOSE, FASTING 96 MG/DL (70-100); MAGNESIUM LEVEL 2.1 MG/DL (1.8-2.4); POTASSIUM SERUM 4.8 MEQ/L (3.5-5.1); SODIUM LEVEL 128 MEQ/L (136-145)
[2020-02-11 14:29] VITALS: BP 138/82
[2020-02-11 20:00] VITALS: BP 130/78
[2020-02-11] MEDS: rOPINIRole 1MG TAB PO SCH (20:48)
[2020-02-12] MEDS: IPRATROPIUM 0.5MG/ALBUTEROL 2.5MG INH SOL UD 3ML (DUONEB)(J7620) NEB SCH ×4 (01:27→20:00)
[2020-02-12] MEDS: ACETAMINOPHEN TAB 650MG DOSE (2X325MG) PO PRN ×5 (01:36→23:38)
[2020-02-12 05:08] VITALS: BP 128/77
[2020-02-12] MEDS: CEFTAROLINE FOSAMIL 600 MG in D5W MINI-BAG PLUS 50 ML IV SCH ×2 (05:08→15:46)
[2020-02-12] MEDS: HEPARIN SOD (PORCINE) 5000 UNITS/ML VIAL (J1644 PER 1000UNITS) SC SCH ×3 (05:09→21:04)
[2020-02-12] MEDS: LEVOTHYROXINE 150MCG TABLET (0.15MG) PO SCH (05:09)
[2020-02-12 05:49] LABS: BASO # 0.1 10^3/uL (0.0-0.2); BASO % 0.5 % (0.0-1.0); EOS # 0.6 10^3/uL (0.0-0.5); EOS % 6.9 % (0.0-3.0); HEMATOCRIT 35.3 % (36.0-47.0); HEMOGLOBIN 11.4 g/dl (12.0-15.5); LYMPH % 10.4 % (24.0-44.0); MEAN CORPUSCULAR HEMOGLOBIN 28.5 pg (27.0-33.0); MEAN CORPUSCULAR HGB CONC 32.3 g/dl (32.0-36.5); MEAN CORPUSCULAR VOLUME 88.3 fl (80.0-96.0); MONO # 0.7 10^3/uL (0.0-0.8); MONO % 7.9 % (0.0-5.0); NEUTROPHILS # 6.9 10^3/uL (1.5-8.5); PLATELET COUNT, AUTOMATED 224 10^3/uL (150-450); WHITE BLOOD COUNT 9.3 10^3/uL (4.0-10.0)
[2020-02-12 06:12] LABS: BLOOD UREA NITROGEN 11 MG/DL (7-18); CALCIUM LEVEL 8.6 MG/DL (8.8-10.2); CARBON DIOXIDE LEVEL 29 MEQ/L (21-32); CHLORIDE LEVEL 95 MEQ/L (98-107); CREATININE FOR GFR 0.64 MG/DL (0.55-1.30); GLOMERULAR FILTRATION RATE > 60.0 (>45); GLUCOSE, FASTING 110 MG/DL (70-100); MAGNESIUM LEVEL 1.9 MG/DL (1.8-2.4); POTASSIUM SERUM 4.3 MEQ/L (3.5-5.1); SODIUM LEVEL 128 MEQ/L (136-145)
[2020-02-12] MEDS: ADVAIR HFA 230/21MCG INHALER INH SCH ×2 (07:53→20:31)
[2020-02-12 08:48] LABS: C REACTIVE PROTEIN QUANTITATIV 3.06 MG/DL (0.00-0.30)
[2020-02-12 09:00] VITALS: BP 116/77
[2020-02-12] MEDS: guaiFENesin ER 600 MG TAB PO SCH ×2 (09:00→21:05)
[2020-02-12] MEDS: DIVALPROEX 500MG *ER* TAB PO SCH (09:00)
[2020-02-12] MEDS: PANTOPRAZOLE 20 MG TAB PO SCH (09:01)
[2020-02-12] MEDS: CYCLOBENZAPRINE 10 MG TAB PO PRN ×2 (09:59→19:09)
[2020-02-12] MEDS: MECLIZINE 12.5 MG TAB PO SCH ×2 (09:59→21:04)
--- NOTE | 2020-02-12 10:15 | IPNPDOC ---
Text Note Date of Service The patient was seen on 02/12/20. NOTE Subjective: Patient is 64-year-old female with a PMHx of CAD s/p Stent (Hx of [place] 2013), Hypothyroidism, RA, HTN, DLP, COPD / Asthma / Hx of MAC who presented to the emergency room after experiencing worsening of her right lower extremity warmth, tenderness and swelling. She presented to the emergency room on 02/01, with right lower extremity warmth, tenderness and swelling. She was prescribed Bactrim with instructions to fill the prescription. Patient reported back to the emergency room on 02/03 and indicated that she was too weak to fill her prescr iption. Repeat lab work was completed and indicated that she did not have any evidence of sepsis. Patient was again advised to complete antibiotics. Patient presented again on 02/09, today after taking her antibiotic and her right lower extremity appeared to have worsening of her redness, warmth and tenderness. Patient was admitted to hospitalist service for further evaluation and treatment of right lower extremity cellulitis. Patient was seen and examined at the bedside. Patient denies any nausea, vomiting, chest pain, shortness breath or palpitations. She reports that her right lower extremity appears to be doing better. Objective: Vitals (See below) General: Lying in bed, no acute distress, comfortable, AAOx3 HEENT: NC, AT CVS: RRR, +S1S2 Lungs: Air entry is fair bilaterally, without any auscultated rhonchi, crackles or wheezing Abdomen: Remains soft without any tenderness / distention Extremities: RLE with 1+ edema still present, left lower extremity without edema Skin: Area of erythema, warmth and tenderness has regressed from demarcation lines at right lower extremity Assessment and plan: Right lower extremity cellulitis / Community acquired pneumonia - Regression from demarkation lines - Patient has failed Bactrim therapy as an outpatient - Remains hemodynamically stable and afebrile - No leukocytosis; No lactic acidosis - Blood cultures 02/09: Negative at 24 hours - MRSA screen pending - US RLE 02/09: Severe diffuse subcutaneous edema with thin fluid appearance at the subcutaneous fat/muscle interface right calf. No walled off or drainable fluid collection is seen. - Duplex US 02/09: Negative bilateral lower extremity duplex venous ultrasound. No evidence of deep vein thrombosis. Hypertrophied appearing lymph node right groin 3.4 cm in greatest diameter. - c/w Ceftaroline (Day #3) Productive cough - possibly 2/2 CAP - Remains hemodynamics are stable and afebrile - Patient had an elevated d-dimer; so subsequent CT angiogram was completed in the emergency room - CTA 02/09: No CT evidence of pulmonary embolism. Small peripheral infiltrates right upper and lower lobes. No change in bilateral interstitial thickening as well as bronchiolar wall thickening. Mild right hilar adenopathy may be react akanksha. - Suspicion of viral infection by ER provider was noted - Respiratory panel 02/09: Negative - Sputum gram stain 02/10: Few gram positive rods / few yeast / many wbc, cultures pending - Antibiotics (See above) - Will follow precautionary measures at this time Hyponatremia (mild) - likely 2/2 hypotonic etiology - likely 2/2 euvolemic etiology - likely 2/2 medications - Remains euvolemic and hemodynamically stable - Osmolality of urine, urine electrolytes - Thyroid function noted to reflect hypothyroidism - Cortisol baseline appears low; will recheck (BP remain adequate) - Hold Duloxetine / Aripiprazole / Trazodone - c/w fluid restrictions s/p Hypomagnesemia Normocytic anemia - Hg appears to be at baseline - Will continue to monitor CAD s/p Stent - Hx of [place] 2013 - Currently not on antiplatelet therapy Hypothyroidism - TSH level elevated and T4 levels low; - c/w adjusted dose of Levothyroxine RA - c/w Tylenol PRN HTN - BP is better controlled this morning - Currently not on any medications - c/w Amlodipine DLP - Currently not on any therapy COPD / Asthma / Hx of MAC - No evidence of exacerbation at this time - Continue with inhaled therapy as ordered RLS - c/w Ropinirole GERD - c/w Protonix DVT prophylaxis - c/w Heparin Disposition: - Awaiting Na to improve; will check ECHO / BNP VS,Fishbone, I+O VS, Fishbone, I+O Laboratory Tests 02/11/20 12:49 02/12/20 05:37 Vital Signs Date Time Temp Pulse Resp B/P (MAP) Pulse Ox O2 Delivery O2 Flow Rate FiO2 02/12/20 09:00 78 116/77 02/12/20 05:08 97.8 20 97 Room Air I&O- Last 24 Hours up to 6 AM 02/12/20 06:00 Intake Total 1530 ml Output Total 1000 ml Balance 530 ml KARLA MAK MD Feb 12, 2020 10:15
[2020-02-12 10:30] LABS: NT-PRO BNP 263 PG/ML (<125)
[2020-02-12] MEDS ORDERED: NYSTATIN 100,000 UNITS/GM TOPICAL PWD 15 GM TOP PRN (11:30)
[2020-02-12 14:49] VITALS: BP 107/59
--- NOTE | 2020-02-12 15:07 | REP ---
Clinical: Mild crackles. Comparison: 12/26/2019. Findings: Large hiatal hernia dominates the mediastinum. No definite cardiomegaly. Lung hdz demonstrate diffuse chronic interstitial changes although mild interstitial edema cannot definitively be excluded. No focal consolidation. No obvious effusion. No pneumothorax. Skeletal structures are stable. Impression: 1. Large hiatal hernia. 2. Chronic-appearing interstitial changes although mild interstitial edema cannot be excluded. 3. No focal consolidation or effusion. Electronically Signed by Jackson Covington MD 02/12/2020 02:59 P
[2020-02-12 19:26] LABS: APPEARANCE, URINE CLEAR (CLEAR); BACTERIA, URINE AUTO 1+ (NEGATIVE); BILIRUBIN, URINE AUTO NEGATIVE (NEGATIVE); BLOOD, URINE BLOOD NEGATIVE (NEGATIVE); COLOR, URINE YELLOW (YELLOW); GLUCOSE, URINE (UA) AUTO NEGATIVE (NEGATIVE); KETONE, URINE AUTO NEGATIVE (NEGATIVE); LEUKOCYTE ESTERASE, URINE AUTO TRACE (NEGATIVE); NITRITE, URINE AUTO NEGATIVE (NEGATIVE); PROTEIN, URINE AUTO NEGATIVE (NEGATIVE); RBC, URINE AUTO 2 /HPF (0-3); SPECIFIC GRAVITY URINE AUTO 1.009 (1.002-1.035); SQUAMOUS EPITHELIAL CELL UR AU 1 /HPF (0-6); UROBILINOGEN, URINE AUTO 0.2 mg/dL (0.0-2.0); WBC, URINE AUTO 3 /HPF (0-3)
[2020-02-12 19:41] LABS: OSMOLALITY URINE 250 MOSM/KG (500-800)
[2020-02-12 19:51] LABS: CREATININE,RANDOM URINE 44.3 MG/DL; SODIUM,RANDOM URINE 22 MEQ/L; UREA NITROGEN RANDOM URINE 387 MG/DL
[2020-02-12] MEDS: rOPINIRole 1MG TAB PO SCH (21:05)
[2020-02-12 22:00] VITALS: BP 108/57
[2020-02-13] MEDS: IPRATROPIUM 0.5MG/ALBUTEROL 2.5MG INH SOL UD 3ML (DUONEB)(J7620) NEB SCH ×4 (01:13→20:00)
[2020-02-13] MEDS: CEFTAROLINE FOSAMIL 600 MG in D5W MINI-BAG PLUS 50 ML IV SCH (04:25)
[2020-02-13] MEDS: LEVOTHYROXINE 150MCG TABLET (0.15MG) PO SCH (05:35)
[2020-02-13] MEDS: HEPARIN SOD (PORCINE) 5000 UNITS/ML VIAL (J1644 PER 1000UNITS) SC SCH ×3 (05:36→20:48)
[2020-02-13] MEDS: ACETAMINOPHEN TAB 650MG DOSE (2X325MG) PO PRN ×2 (05:36→20:49)
[2020-02-13 05:39] LABS: BASO % 0.5 % (0.0-1.0); EOS # 0.7 10^3/uL (0.0-0.5); EOS % 8.3 % (0.0-3.0); HEMOGLOBIN 11.1 g/dl (12.0-15.5); LYMPH % 12.6 % (24.0-44.0); MEAN CORPUSCULAR HGB CONC 31.7 g/dl (32.0-36.5); MEAN CORPUSCULAR VOLUME 88.4 fl (80.0-96.0); MONO # 0.7 10^3/uL (0.0-0.8); MONO % 9.1 % (0.0-5.0); NEUTROPHILS # 5.4 10^3/uL (1.5-8.5); NEUTROPHILS % 69.2 % (36.0-66.0); PLATELET COUNT, AUTOMATED 220 10^3/uL (150-450); RED BLOOD COUNT 3.96 10^6/uL (4.00-5.40); WHITE BLOOD COUNT 7.8 10^3/uL (4.0-10.0)
[2020-02-13 06:00] VITALS: BP 138/82
[2020-02-13 06:02] LABS: BLOOD UREA NITROGEN 11 MG/DL (7-18); C REACTIVE PROTEIN QUANTITATIV 7.48 MG/DL (0.00-0.30); CALCIUM LEVEL 8.5 MG/DL (8.8-10.2); CARBON DIOXIDE LEVEL 31 MEQ/L (21-32); CHLORIDE LEVEL 99 MEQ/L (98-107); CREATININE FOR GFR 0.61 MG/DL (0.55-1.30); GLOMERULAR FILTRATION RATE > 60.0 (>45); GLUCOSE, FASTING 106 MG/DL (70-100); POTASSIUM SERUM 4.5 MEQ/L (3.5-5.1); SODIUM LEVEL 132 MEQ/L (136-145)
[2020-02-13] MEDS: ADVAIR HFA 230/21MCG INHALER INH SCH ×2 (07:42→21:05)
--- NOTE | 2020-02-13 09:19 | IPNPDOC ---
Text Note Date of Service The patient was seen on 02/13/20. NOTE Subjective: Patient is 64-year-old female with a PMHx of CAD s/p Stent (Hx of [place] 2013), Hypothyroidism, RA, HTN, DLP, COPD / Asthma / Hx of MAC who presented to the emergency room after experiencing worsening of her right lower extremity warmth, tenderness and swelling. She presented to the emergency room on 02/01, with right lower extremity warmth, tenderness and swelling. She was prescribed Bactrim with instructions to fill the prescription. Patient reported back to the emergency room on 02/03 and indicated that she was too weak to fill her prescr iption. Repeat lab work was completed and indicated that she did not have any evidence of sepsis. Patient was again advised to complete antibiotics. Patient presented again on 02/09, today after taking her antibiotic and her right lower extremity appeared to have worsening of her redness, warmth and tenderness. Patient was admitted to hospitalist service for further evaluation and treatment of right lower extremity cellulitis. Patient was seen and examined at the bedside. Currently, patient reports that she's feeling much better. Reports that her leg redness, warmth and tenderness have improved. Denies nausea, vomiting, chest pain, shortness breath or palpitations. Denies any abdominal pain or diarrhea. Objective: Vitals (See below) General: Lying in bed, no acute distress, comfortable, AAOx3 HEENT: NC, AT CVS: RRR, +S1S2 Lungs: Air entry appears to be fair. No auscultated rhonchi, crackles or wheezing Abdomen: Abdomen again is soft without any distention or tenderness Extremities: RLE with trace pitting edema, no edema noted. The left lower extremity Skin: Near resolution of erythema, warmth and tenderness of right lower extremity Assessment and plan: Right lower extremity cellulitis / Community acquired pneumonia - Near resolution of cellulitis - Patient has failed Bactrim therapy as an outpatient - Remains hemodynamically stable and afebrile - No leukocytosis; No lactic acidosis - Blood cultures 02/09: Negative at 48 hours / MRSA screen negative - US RLE 02/09: Severe diffuse subcutaneous edema with thin fluid appearance at the subcutaneous fat/muscle interface right calf. No walled off or drainable fluid collection is seen. - Duplex US 02/09: Negative bilateral lower extremity duplex venous ultrasound. No evidence of deep vein thrombosis. Hypertrophied appearing lymph node right groin 3.4 cm in greatest diameter. - Will start Augmentin; Will DC Ceftaroline (Antibiotic day #4) Productive cough - possibly 2/2 CAP - Remains hemodynamics are stable and afebrile - Patient had an elevated d-dimer; so subsequent CT angiogram was completed in the emergency room - CTA 02/09: No CT evidence of pulmonary embolism. Small peripheral infiltrates right upper and lower lobes. No change in bilateral interstitial thickening as well as bronchiolar wall thickening. Mild right hilar adenopathy may be reactive. - Suspicion of viral infection by ER provider was noted - Respiratory panel 02/09: Negative - Sputum gram stain 02/10: Few gram positive rods / few yeast / many wbc, cultures pending - Antibiotics (See above) - Will follow precautionary measures at this time Hyponatremia (mild) - likely 2/2 hypotonic etiology - likely 2/2 euvolemic etiology - likely 2/2 medications - Sodium has improved - Remains euvolemic and hemodynamically stable - Osmolality of urine of 250; FENa 0.2% - Thyroid function noted to reflect hypothyroidism - Cortisol baseline appears low; Recheck pending - Hold Duloxetine / Aripiprazole / Trazodone - c/w fluid restrictions s/p Hypomagnesemia Normocytic anemia - Hg appears to be at baseline - Will continue to monitor CAD s/p Stent - Hx of [place] 2013 - Currently not on antiplatelet therapy Hypothyroidism - TSH level elevated and T4 levels low; - c/w adjusted dose of Levothyroxine RA - c/w Tylenol PRN - Possible flare at R hand - Will start low dose Prednisone HTN - BP is better controlled this morning - Currently not on any medications - c/w Amlodipine DLP - Currently not on any therapy COPD / Asthma / Hx of MAC - No evidence of exacerbation at this time - Continue with inhaled therapy as ordered RLS - c/w Ropinirole GERD - c/w Protonix DVT prophylaxis - c/w Heparin Disposition: - ECHO Pending - Will work with PT - Transition to PO medications - Anticipate DC tomorrow VS,Fishbone, I+O VS, Fishbone, I+O Laboratory Tests 02/13/20 05:25 Vital Signs Date Time Temp Pulse Resp B/P (MAP) Pulse Ox O2 Delivery O2 Flow Rate FiO2 02/13/20 06:00 97.8 82 20 138/82 (100) 94 Room Air I&O- Last 24 Hours up to 6 AM 02/13/20 06:00 Intake Total 1030 ml Output Total 1050 ml Balance -20 ml KARLA MAK MD Feb 13, 2020 09:19
[2020-02-13] MEDS: predniSONE 20 MG TAB PO SCH (09:41)
[2020-02-13] MEDS: PANTOPRAZOLE 20 MG TAB PO SCH (09:42)
[2020-02-13] MEDS: AUGMENTIN 875 MG TAB PO SCH ×2 (09:42→20:49)
[2020-02-13] MEDS: guaiFENesin ER 600 MG TAB PO SCH ×2 (09:42→20:49)
[2020-02-13] MEDS: MECLIZINE 12.5 MG TAB PO SCH ×2 (09:42→20:49)
[2020-02-13] MEDS: DIVALPROEX 500MG *ER* TAB PO SCH (09:42)
[2020-02-13] MEDS ORDERED: IPRATROPIUM 0.5MG/ALBUTEROL 2.5MG INH SOL UD 3ML (DUONEB)(J7620) INH PRN (12:45)
[2020-02-13] MEDS ORDERED: IPRATROPIUM 0.5MG/ALBUTEROL 2.5MG INH SOL UD 3ML (DUONEB)(J7620) NEB PRN (12:45)
[2020-02-13 16:00] VITALS: BP 136/81
[2020-02-13] MEDS: rOPINIRole 1MG TAB PO SCH (20:49)
[2020-02-13 21:11] VITALS: BP 128/77
[2020-02-14] MEDS: IPRATROPIUM 0.5MG/ALBUTEROL 2.5MG INH SOL UD 3ML (DUONEB)(J7620) NEB SCH ×2 (00:47→08:00)
[2020-02-14 05:22] LABS: BASO % 0.3 % (0.0-1.0); EOS # 0.1 10^3/uL (0.0-0.5); EOS % 0.7 % (0.0-3.0); HEMATOCRIT 35.3 % (36.0-47.0); HEMOGLOBIN 11.1 g/dl (12.0-15.5); LYMPH # 1.1 10^3/uL (1.5-5.0); LYMPH % 11.8 % (24.0-44.0); MEAN CORPUSCULAR HGB CONC 31.4 g/dl (32.0-36.5); MEAN CORPUSCULAR VOLUME 89.1 fl (80.0-96.0); MONO # 0.7 10^3/uL (0.0-0.8); MONO % 7.4 % (0.0-5.0); NEUTROPHILS # 7.2 10^3/uL (1.5-8.5); NEUTROPHILS % 79.5 % (36.0-66.0); PLATELET COUNT, AUTOMATED 241 10^3/uL (150-450); RED BLOOD COUNT 3.96 10^6/uL (4.00-5.40); WHITE BLOOD COUNT 9.1 10^3/uL (4.0-10.0)
[2020-02-14 05:49] LABS: BLOOD UREA NITROGEN 12 MG/DL (7-18); C REACTIVE PROTEIN QUANTITATIV 6.76 MG/DL (0.00-0.30); CALCIUM LEVEL 8.9 MG/DL (8.8-10.2); CARBON DIOXIDE LEVEL 29 MEQ/L (21-32); CHLORIDE LEVEL 99 MEQ/L (98-107); CREATININE FOR GFR 0.58 MG/DL (0.55-1.30); GLOMERULAR FILTRATION RATE > 60.0 (>45); GLUCOSE, FASTING 135 MG/DL (70-100); MAGNESIUM LEVEL 1.9 MG/DL (1.8-2.4); POTASSIUM SERUM 4.7 MEQ/L (3.5-5.1); SODIUM LEVEL 133 MEQ/L (136-145)
[2020-02-14] MEDS: HEPARIN SOD (PORCINE) 5000 UNITS/ML VIAL (J1644 PER 1000UNITS) SC SCH (06:31)
[2020-02-14] MEDS: LEVOTHYROXINE 150MCG TABLET (0.15MG) PO SCH (06:31)
--- NOTE | 2020-02-14 06:40 | ECHO ---
DATE OF PROCEDURE: 02/13/2020 REFERRING PHYSICIAN: Dr. Hugo Adkins INDICATION: Edema. HEIGHT: 163 cm. WEIGHT: 87 kg. DIMENSIONS: IVS: 1.2 LV: 4.9 LVPW: 1.2 LA: 4.2 Aorta: 2.9 IVC: 2.5 Mitral E wave velocity: 75 A wave: 103 E prime septal: 5.3 E prime lateral: 10.3 FINDINGS: The study is of acceptable technical quality. The patient is in sinus rhythm. Normal LV size with mild left ventricular hypertrophy and preserved LV systolic function. There appears to be very subtle septal wall motion abnormality. Overall left ventricular ejection fraction (LVEF) estimated at 55-60%. Computer calculated LVEF was 53%. Right ventricle appears normal size and systolic function. Both atria appear at least mildly enlarged. Aortic valve has three cusps. It is mildly sclerotic, but mobility is preserved. Mitral valve also exhibits minimal degenerative abnormalities, but mobility of mitral leaflets is preserved. Tricuspid and pulmonic valves appear normal. There is trace pericardial effusion. Inferior vena cava is dilated, but collapses with inspiration indicative of at least mildly elevated central venous pressure. Aortic root is normal. Aortic arch and abdominal aorta were poorly visualized. Doppler interrogation of aortic valve reveals no significant stenosis or insufficiency. There is mild mitral and tricuspid insufficiency. Calculated pulmonary artery pressure is in 30s corresponding to mild pulmonary hypertension. Pulmonic valve is functionally competent. Mitral inflow pattern and tissue Doppler imaging of mitral annulus reveal grade 1 diastolic dysfunction. CONCLUSIONS: 1. Study is of acceptable technical quality, the patient is in sinus rhythm. 2. Normal LV size with mild LVH and overall preserved LV systolic function. Grade 1 diastolic dysfunction. Cannot rule out subtle septal wall motion abnormality. 3. No hemodynamically significant valvular disease. 4. Suggestive of elevated central venous pressure and at least mild pulmonary hypertension. COMMENT: Subacute bacterial endocarditis (SBE) prophylaxis is not recommended. The study is consistent with hypertensive heart disease.
[2020-02-14] MEDS: guaiFENesin ER 600 MG TAB PO SCH (08:24)
[2020-02-14] MEDS: MECLIZINE 12.5 MG TAB PO SCH (08:24)
[2020-02-14] MEDS: DIVALPROEX 500MG *ER* TAB PO SCH (08:24)
[2020-02-14] MEDS: AUGMENTIN 875 MG TAB PO SCH (08:24)
[2020-02-14] MEDS: PANTOPRAZOLE 20 MG TAB PO SCH (08:24)
[2020-02-14] MEDS: predniSONE 20 MG TAB PO SCH (08:24)
[2020-02-14] MEDS ORDERED: LEVO150T7 PO (08:57)
[2020-02-14] MEDS ORDERED: MUCI600T31 PO (08:57)
[2020-02-14] MEDS ORDERED: AMOX875T2 PO (08:57)
[2020-02-14] MEDS ORDERED: PRED10TA2 PO (08:57)
[2020-02-14] MEDS: ADVAIR HFA 230/21MCG INHALER INH SCH (10:49)
[2020-02-14] MEDS ORDERED: LEVA750T7 PO ×2 (11:01→11:03)
--- NOTE | 2020-02-14 11:04 | DS.PDOC ---
Discharge Summary General Date of Admission Feb 10, 2020 at 16:07 Date of Discharge 02/14/2020 Discharge Summary PROCEDURES PERFORMED DURING STAY: [None]. ADMITTING DIAGNOSES / DISCHARGE DIAGNOSES: Right lower extremity cellulitis / Community acquired pneumonia Productive cough - possibly 2/2 CAP - possibly 2/2 Pseudomonas Hyponatremia (mild) - likely 2/2 hypotonic etiology - likely 2/2 euvolemic etiol ogy - likely 2/2 medications s/p Hypomagnesemia Normocytic anemia CAD s/p Stent Hypothyroidism RA HTN DLP COPD / Asthma / Hx of MAC RLS GERD DVT prophylaxis COMPLICATIONS/CHIEF COMPLAINT: Right leg warmth, redness and swelling HISTORY OF PRESENT ILLNESS: Patient is 64-year-old female with a PMHx of CAD s/p Stent (Hx of [place] 2013), Hypothyroidism, RA, HTN, DLP, COPD / Asthma / Hx of MAC who presented to the emergency room after experiencing worsening of her right lower extremity war mth, tenderness and swelling. She presented to the emergency room on 02/01, with right lower extremity warmth, tenderness and swelling. She was prescribed Bactrim with instructions to fill the prescription. Patient reported back to the emergency room on 02/03 and indicated that she was too weak to fill her prescription. Repeat lab work was completed and indicated that she did not have any evidence of sepsis. Patient was again advised to complete antibiotics. Patient presented again on 02/09, today after taking her antibiotic and her right lower extremity appeared to have worsening of her redness, warmth and tenderness. Patient was admitted to hospitalist service for further evaluation and treatment of right lower extremity cellulitis. HOSPITAL COURSE: Right lower extremity cellulitis / Community acquired pneumonia - Near resolution of cellulitis - Patient has failed Bactrim therapy as an outpatient - Remains hemodynamically stable and afebrile - No leukocytosis; No lactic acidosis - Blood cultures 02/09: Negative at 48 hours / MRSA screen negative - US RLE 02/09: Severe diffuse subcutaneous edema with thin fluid appearance at the subcutaneous fat/muscle interface right calf. No walled off or drainable fluid collection is seen. - Duplex US 02/09: Negative bilateral lower extremity duplex venous ultrasound. No evidence of deep vein thrombosis. Hypertrophied appearing lymph node right groin 3.4 cm in greatest diameter. - Will discharge with Levaquin for completion of antibiotic course; s/p Ceftaroline (Antibiotic day #5) Productive cough - possibly 2/2 CAP - possibly 2/2 Pseudomonas - Remains hemodynamics are stable and afebrile - Patient had an elevated d-dimer; so subsequent CT angiogram was completed in the emergency room - CTA 02/09: No CT evidence of pulmonary embolism. Small peripheral infiltrates right upper and lower lobes. No change in bilateral interstitial thickening as well as bronchiolar wall thickening. Mild right hilar adenopathy may be reactive. - Suspicion of viral infection by ER provider was noted - Respiratory panel 02/09: Negative - Sputum gram stain 02/10: Few gram positive rods / few yeast / many wbc; Cultures; Pseudomonas - Will discharge with Levaquin for 5 day course - Will follow precautionary measures at this time Hyponatremia (mild) - likely 2/2 hypotonic etiology - likely 2/2 euvolemic etiology - likely 2/2 medications - Sodium continues to imprvoe - Remains euvolemic and hemodynamically stable - Osmolality of urine of 250; FENa 0.2% - Thyroid function noted to reflect hypothyroidism - Cortisol baseline appears low; Recheck pending - Hold Duloxetine / Aripiprazole / Trazodone - Will have outpatient follow up with Dr. Mckay for follow up labs and reinstitution of medications as needed - c/w fluid restrictions s/p Hypomagnesemia Normocytic anemia - Hg appears to be at baseline - Will continue to monitor CAD s/p Stent - Hx of [place] 2013 - Currently not on antiplatelet therapy Hypothyroidism - TSH level elevated and T4 levels low; - c/w adjusted dose of Levothyroxine RA - Possible flare at R hand; mild erythema on 02/12 - reports significant improvement today - c/w Tylenol PRN - c/w Prednisone taper HTN - BP is better controlled this morning - Currently not on any medications - c/w Amlodipine DLP - Currently not on any therapy COPD / Asthma / Hx of MAC - No evidence of exacerbation at this time - Continue with inhaled therapy as ordered RLS - c/w Ropinirole GERD - c/w Protonix DVT prophylaxis - c/w Heparin DISCHARGE MEDICATIONS: Please see below. ALLERGIES: Please see below. PHYSICAL EXAMINATION ON DISCHARGE: Vitals (See below) General: Lying in bed, no acute distress, comfortable, AAOx3 HEENT: NC, AT CVS: +S1S2 Lungs: Fair b/l air entry, no rhonchi / wheezing / crackles Abdomen: Soft, ND / NT Extremities: RLE with trace pitting edema, LE without edema Skin: Near complete resolution of erythema / warmth / tenderness LABORATORY DATA: Please see below. ACTIVITY: [As tolerated]. DISCHARGE PLAN: Follow up with Dr. Mckay within 7 days Remain compliant with treatment plan and medications Return to the ER if you experience any problems DISPOSITION: Home DISCHARGE CONDITION: [Stable]. TIME SPENT ON DISCHARGE: 35 minutes Vital Signs/I&Os Vital Signs Date Time Temp Pulse Resp B/P (MAP) Pulse Ox O2 Delivery O2 Flow Rate FiO2 02/13/20 21:11 98.8 99 18 128/77 (94) 96 Room Air I&O- Last 24 Hours up to 6 AM 02/14/20 06:00 Intake Total 1050 ml Output Total 1300 ml Balance -250 ml Laboratory Data Labs 24H Laboratory Tests 2 02/14/20 04:52: Immature Granulocyte % (Auto) 0.3, Neutrophils (%) (Auto) 79.5H, Lymphocytes (%) (Auto) 11.8L, Monocytes (%) (Auto) 7.4H, Eosinophils (%) (Auto) 0.7, Basophils (%) (Auto) 0.3, Neutrophils # (Auto) 7.2, Lymphocytes # (Auto) 1.1L, Monocytes # (Auto) 0.7, Eosinophils # (Auto) 0.1, Basophils # (Auto) 0.0, Nucleated Red Blood Cells % (auto) 0.0, Anion Gap 5L, Glomerular Filtration Rate > 60.0, Calcium Level 8.9, Magnesium Level 1.9, C-Reactive Protein, Quantitative 6.76H CBC/BMP Laboratory Tests 02/14/20 04:52 Microbiology Microbiology 02/11/20 Gram Stain - Final, Complete 02/11/20 Sputum Culture - Final, Complete Pseudomonas Aeruginosa Yeast Like Organism 02/10/20 Respiratory Virus Panel (PCR) ([facility]) - Final, Complete 02/10/20 Blood Culture - Preliminary, Resulted No Growth after 72 hours. All specime... 02/10/20 Blood Culture - Preliminary, Resulted No Growth after 72 hours. All specime... Discharge Medications Scheduled Amoxicillin/Potassium Clav (Amox-Clav 875-125 mg Tablet) 1 Each Tablet, 875 MG PO BID Divalproex Sodium (Depakote ER) 500 Mg Tab, 500 MG PO DAILY, (Reported) Fluticasone/Vilanterol (Breo Ellipta 200-25 Mcg INH) 1 Inh Inh, 1 PUFF INH DAILY, (Reported) Guaifenesin (Mucinex) 600 Mg Tab.er.12h, 600 MG PO BID Levothyroxine Sodium (Levothyroxine Sodium) 150 Mcg Tablet, 150 MCG PO DA [place]@0600 Meclizine HCl (Meclizine HCl) 12.5 Mg Tablet, 12.5 MG PO DAILY, (Reported) Pantoprazole Sodium (Pantoprazole Sodium) 20 Mg Tab, 20 MG PO DAILY, (Reported) Prednisone (Prednisone) 10 Mg Tablet, 10 MG PO TAPER Take 4 tabs daily x 3 days, then 3 tabs daily x 3 days, then 2 tabs daily x 3 days, then 1 tab daily x 3 days and stop Ropinirole HCl (Ropinirole HCl) 1 Mg Tab, 1 MG PO QHS, (Reported) Umeclidinium Jeff (Incruse Ellipta) 62.5 Mcg/Inh Inh, 1 PUFF INH DAILY, (Reported) Scheduled PRN Albuterol Sulfate (Proair Hfa) 108 Mcg/Act Aer, 2 PUFF INH QID PRN for SHORTNESS OF BREATH, (Reported) Cyclobenzaprine HCl (Cyclobenzaprine HCl) 10 Mg Tablet, 10 MG PO TID PRN for MUSCLE SPASMS, (Reported) Allergies Coded Allergies: doxycycline (Verified Allergy, Intermediate, HIVES, 02/02/20) hydroxyzine (Verified Allergy, Intermediate, HIVES, 02/02/20) TAPE (Verified Adverse Reaction, Intermediate, bandaids- red, swollen, 02/11/20) KARLA MAK MD Feb 14, 2020 11:04
[2020-02-14] MEDS ORDERED: LEVO500T3 PO (11:07)
== END 2020-02-14 11:35 | disposition home or self-care (01) | DRG 602 ==
LOC: M ED 09:11 → M ED INP 16:07 → ENRESERVDT 16:25 → ENRESERVTM 16:25 → M MS5PR 17:20
PROVIDERS: ADMIT Internal Medicine; ATTEND Internal Medicine
DX: L03.115 Cellulitis of right lower limb (principal); J15.1 Pneumonia due to Pseudomonas; E87.1 Hypo-osmolality and hyponatremia; I25.10 Atherosclerotic heart disease of native coronary artery without angina pectoris; Z95.2 Presence of prosthetic heart valve; J44.9 Chronic obstructive pulmonary disease, unspecified; K21.9 Gastro-esophageal reflux disease without esophagitis; G25.81 Restless legs syndrome; I10 Essential (primary) hypertension; E83.42 Hypomagnesemia; D50.9 Iron deficiency anemia, unspecified; E03.9 Hypothyroidism, unspecified; M06.9 Rheumatoid arthritis, unspecified; Z79.899 Other long term (current) drug therapy; Z88.8 Allergy status to other drugs, medicaments and biological substances; Z96.641 Presence of right artificial hip joint; Z96.642 Presence of left artificial hip joint; Z96.651 Presence of right artificial knee joint; Z96.652 Presence of left artificial knee joint; Z96.611 Presence of right artificial shoulder joint

== ENCOUNTER → 2020-03-12 | Outpatient (CLI) | payer MEDICARE, MEDICAID ==
[~2020-03-12] MED LIST changes: +AMOX875T2 PO; +ARIP1TAB PO; +CYCL-707 PO; +LEVA750T7 PO; +LEVO500T3 PO; +MECL12.589 PO; +MUCI600T31 PO; +SULF1TAB93 PO; +SYNT125T PO; +TRAZ-257 PO; +VITA-243 PO; -VITA500T PO
== END ==
LOC: M LABSMTC 10:20
PROVIDERS: ATTEND Family Medicine
DX: Z11.59 Encounter for screening for other viral diseases (principal); Z20.828 Contact with and (suspected) exposure to other viral communicable diseases

== ENCOUNTER → 2020-04-05 | Outpatient (CLI) | payer MEDICARE, MEDICAID ==
[~2020-04-05] MED LIST changes: -PARO15TA PO; +PARO30TA4 PO
== END ==
LOC: M RAD 14:17
PROVIDERS: ATTEND Internal Medicine Infectious Disease
DX: A31.0 Pulmonary mycobacterial infection (principal)
CPT/HCPCS: 71250; G0463

== ENCOUNTER → 2020-05-11 | Outpatient (CLI) | payer MEDICARE, MEDICAID ==
[~2020-05-11] MED LIST changes: +ACET1TAB16 PO; -AMIT25TA PO; +AMIT25TA17 PO; +ASPI81CH33 PO; +LEVO200T4 PO; -LISI-542 PO; +LISI-898 PO; -MECL12.589 PO; +MECL12.590 PO; +MELO7.5T35 PO; +MYRB50TA; -PANT20TA2 PO; +PANT20TA6 PO; +PANT40TA29 PO; -PANT40TA3 PO; +ROSU10TA6; +SULF500T2 PO; +TYLETAB14 PO; +VITA50005 PO
[2020-05-11 11:05] LABS: HEMATOCRIT 41.8 % (36.0-47.0); HEMOGLOBIN 13.4 g/dl (12.0-15.5); MEAN CORPUSCULAR HEMOGLOBIN 31.7 pg (27.0-33.0); MEAN CORPUSCULAR HGB CONC 32.1 g/dl (32.0-36.5); MEAN CORPUSCULAR VOLUME 98.8 fl (80.0-96.0); PLATELET COUNT, AUTOMATED 196 10^3/uL (150-450); RED BLOOD COUNT 4.23 10^6/uL (4.00-5.40); WHITE BLOOD COUNT 7.3 10^3/uL (4.0-10.0)
[2020-05-11 11:15] LABS: INR 0.94; PROTHROMBIN TIME 12.3 SECONDS (11.8-14.0)
[2020-05-11 11:27] LABS: HEMOGLOBIN A1c 5.1 %
[2020-05-11 11:42] LABS: ALBUMIN 3.3 GM/DL (3.2-5.2); ALT/SGPT 18 U/L (12-78); BILIRUBIN,TOTAL 0.5 MG/DL (0.2-1.0); BLOOD UREA NITROGEN 12 MG/DL (7-18); CARBON DIOXIDE LEVEL 33 MEQ/L (21-32); CHLORIDE LEVEL 96 MEQ/L (98-107); CHOLESTEROL LEVEL 149 MG/DL (<200); CHOLESTEROL RISK RATIO 1.935 (<5); GLOMERULAR FILTRATION RATE > 60.0 (>45); GLUCOSE, FASTING 86 MG/DL (70-100); HDL CHOLESTEROL 77 MG/DL (>40); LDL CHOLESTEROL 61 MG/DL (<100); NON-HDL-C 72 MG/DL; POTASSIUM SERUM 4.3 MEQ/L (3.5-5.1); SODIUM LEVEL 133 MEQ/L (136-145); TOTAL PROTEIN 6.8 GM/DL (6.4-8.2); TRIGLYCERIDES LEVEL 53 MG/DL (<150)
--- NOTE | 2020-05-11 12:54 | REP ---
REASON: History of hypertension. COMPARISON: Multiple the latest 02/12/2020, a portable exam. There is cardiomegaly status quo. There is a large, an in fact, huge hiatal hernia status quo. There is evidence of interstitial fibrosis status quo. No acute patchy parenchymal opacities or pleural effusions have developed. There is no change in the osseous structures. IMPRESSION: Stable chronic changes as described above. Electronically Signed by Valentino Wheeler DO 05/11/2020 01:46 P
--- NOTE | 2020-05-12 13:02 | ECGEPIP ---
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
== END ==
LOC: M LAB 10:01
PROVIDERS: ATTEND Family Medicine
DX: I10 Essential (primary) hypertension (principal); E11.9 Type 2 diabetes mellitus without complications; Z79.01 Long term (current) use of anticoagulants

== ENCOUNTER → 2020-06-07 | Outpatient (CLI) | payer MEDICARE, MEDICAID ==
[~2020-06-07] MED LIST changes: -ACET1TAB16 PO; +AMIT25TA PO; -AMIT25TA17 PO; -ASPI81CH33 PO; +LISI-542 PO; -LISI-898 PO; +MECL12.589 PO; -MECL12.590 PO; -MYRB50TA; -ROSU10TA6; -SULF500T2 PO; -VITA50005 PO
--- NOTE | 2020-06-07 12:21 | REP ---
REASON: Followup. The latest prior for comparison is 04/05/2020 also without contrast. There is mediastinal and suspected hilar adenopathy, however, the pulmonary shelley are difficult to evaluate without the administration of intravenous contrast. There does not appear to be a significant change compared to the prior exam. There is a pericardial effusion, which is slight but has increased compared to the prior exam. There are no pleural effusions. There is a large hiatal hernia status quo. The imaged upper abdomen and imaged osseous structures are unchanged. Evaluation of the lung hdz again shows scattered asymmetric densities but somewhat less prominent compared to the prior exam and seen with complete resolution of the previously present 2.1 cm sized focal density in the right lower lobe. There are no other significant changes compared to the prior exam. IMPRESSION: Findings, as described above, suggest improvement in the patient's known, nontuberculous mycobacterium infection. Electronically Signed by Valentino Wheeler DO 06/07/2020 12:30 P
== END ==
LOC: M RAD 11:07
PROVIDERS: ATTEND Internal Medicine Pulmonary Disease
DX: R91.8 Other nonspecific abnormal finding of lung field (principal)

== ENCOUNTER → 2020-06-26 | Outpatient (REF) | payer MEDICARE, MEDICAID | LOC: M LAB REF 08:07 | PROVIDERS: ATTEND Internal Medicine Rheumatology | DX: Z11.59 Encounter for screening for other viral diseases (principal); R05 Cough ==

== ENCOUNTER 2020-07-05 11:30 | Emergency (ER) | payer MEDICARE, MEDICAID ==
[~2020-07-05 11:30] MED LIST changes: -LEVO200T4 PO; -MELO7.5T35 PO; -TYLETAB14 PO
[2020-07-05] MEDS ORDERED: ISOVUE-370 76% 100ML VIAL As Ordered ONE (13:52)
--- NOTE | 2020-08-02 11:34 | ECGEPIP ---
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
[2020-08-20 02:30] LABS: BASO % 0.6 % (0.0-1.0); EOS # 0.3 10^3/uL (0.0-0.5); EOS % 3.8 % (0.0-3.0); HEMATOCRIT 36.8 % (36.0-47.0); LYMPH % 15.6 % (24.0-44.0); MEAN CORPUSCULAR HEMOGLOBIN 30.6 pg (27.0-33.0); MEAN CORPUSCULAR HGB CONC 32.6 g/dl (32.0-36.5); MEAN CORPUSCULAR VOLUME 93.9 fl (80.0-96.0); MONO # 0.8 10^3/uL (0.0-0.8); MONO % 12.2 % (0.0-5.0); NEUTROPHILS # 4.5 10^3/uL (1.5-8.5); NEUTROPHILS % 67.5 % (36.0-66.0); PLATELET COUNT, AUTOMATED 242 10^3/uL (150-450); RED BLOOD COUNT 3.92 10^6/uL (4.00-5.40); WHITE BLOOD COUNT 6.6 10^3/uL (4.0-10.0)
[2020-08-20 02:33] LABS: INR 0.86; PROTHROMBIN TIME 11.9 SECONDS (12.5-14.3)
[2020-09-28 13:00] LABS: ALBUMIN 2.9 GM/DL (3.2-5.2); ALT/SGPT 19 U/L (12-78); BILIRUBIN,TOTAL 0.4 MG/DL (0.2-1.0); BLOOD UREA NITROGEN 14 MG/DL (7-18); CALCIUM LEVEL 8.5 MG/DL (8.8-10.2); CARBON DIOXIDE LEVEL 29 MEQ/L (21-32); CHLORIDE LEVEL 98 MEQ/L (98-107); CREATININE FOR GFR 0.44 MG/DL (0.55-1.30); GLOMERULAR FILTRATION RATE > 60.0 (>45); GLUCOSE, FASTING 88 MG/DL (70-100); POTASSIUM SERUM 5.2 MEQ/L (3.5-5.1); SODIUM LEVEL 133 MEQ/L (136-145); TOTAL PROTEIN 6.6 GM/DL (6.4-8.2); TROPONIN I < 0.02 NG/ML (< 0.10)
== END 2020-07-05 16:35 | disposition home or self-care (01) ==
LOC: M ED 11:30
DX: J47.9 Bronchiectasis, uncomplicated (principal); R04.2 Hemoptysis; R91.1 Solitary pulmonary nodule; I31.3 Pericardial effusion (noninflammatory); I25.10 Atherosclerotic heart disease of native coronary artery without angina pectoris; I25.2 Old myocardial infarction; K44.9 Diaphragmatic hernia without obstruction or gangrene; E03.9 Hypothyroidism, unspecified; Z87.891 Personal history of nicotine dependence; Z79.899 Other long term (current) drug therapy
CPT/HCPCS: 36415; 70450; 71045; 71275; 80053; 83605; 84484; 85025; 85610; 87040; 87070; 87077; 87186; 87205; 93005; 93971; 99284; Q9967

== ENCOUNTER 2020-08-09 15:25 | Emergency (ER) | payer MEDICARE, MEDICAID ==
[~2020-08-09] VITALS: Ht 165.1 cm; Wt 81.1 kg
[2020-08-09] MEDS ORDERED: LEVO200T4 PO (15:52)
[2020-08-09] MEDS ORDERED: DULO1CAP6 PO (15:52)
[2020-08-09] MEDS ORDERED: NS 500 ML IV ONE (17:00)
--- NOTE | 2020-08-09 17:16 | REPVR ---
PROCEDURE INFORMATION: Exam: CT Head Without Contrast Exam date and time: 08/09/2020 5:02 PM Age: 64 years old Clinical indication: Altered mental status/memory loss TECHNIQUE: Imaging protocol: Computed tomography of the head without contrast. Radiation optimization: All CT scans at this facility use at least one of these dose optimization techniques: automated exposure control; mA and/or kV adjustment per patient size (includes targeted exams where dose is matched to clinical indication); or iterative reconstruction. COMPARISON: CT Head without contrast 04/22/2017 5:50 PM FINDINGS: Brain: Normal. No hemorrhage. Unremarkable white matter. No mass effect. Ventricles: No ventriculomegaly. Bones/joints: Unremarkable. No acute fracture. Paranasal sinuses: Visualized sinuses are unremarkable. No fluid levels. Mastoid air cells: Visualized mastoid air cells are well aerated. Soft tissues: Unremarkable. IMPRESSION: No acute intracranial abnormality. Electronically signed by: Burt Colunga On 08/09/2020 17:16:01 PM
[2020-08-09 17:41] LABS: BASO % 0.6 % (0.0-1.0); EOS # 0.3 10^3/uL (0.0-0.5); EOS % 4.2 % (0.0-3.0); HEMATOCRIT 38.4 % (36.0-47.0); LYMPH # 1.3 10^3/uL (1.5-5.0); LYMPH % 19.4 % (24.0-44.0); MEAN CORPUSCULAR HEMOGLOBIN 29.9 pg (27.0-33.0); MEAN CORPUSCULAR HGB CONC 31.3 g/dl (32.0-36.5); MEAN CORPUSCULAR VOLUME 95.5 fl (80.0-96.0); MONO # 0.8 10^3/uL (0.0-0.8); MONO % 12.2 % (0.0-5.0); NEUTROPHILS # 4.2 10^3/uL (1.5-8.5); NEUTROPHILS % 63.3 % (36.0-66.0); PLATELET COUNT, AUTOMATED 231 10^3/uL (150-450); RED BLOOD COUNT 4.02 10^6/uL (4.00-5.40); WHITE BLOOD COUNT 6.7 10^3/uL (4.0-10.0)
[2020-08-09 18:08] LABS: AMPHETAMINES LEVEL URINE NEGATIVE (NEGATIVE); BARBITURATES URINE NEGATIVE (NEGATIVE); BENZODIAZEPINES URINE NEGATIVE (NEGATIVE); CANNABINOIDS URINE NEGATIVE (NEGATIVE); COCAINE METABOLITE URINE NEGATIVE (NEGATIVE); METHADONE URINE NEGATIVE (NEGATIVE); OPIATES URINE NEGATIVE (NEGATIVE); PHENCYCLIDINE URINE NEGATIVE (NEGATIVE)
[2020-08-09 18:19] LABS: ACETAMINOPHEN LEVEL < 2.0 UG/ML (10.0-30.0); ALBUMIN 3.4 GM/DL (3.2-5.2); ALT/SGPT 19 U/L (12-78); BILIRUBIN,DIRECT < 0.1 MG/DL (0.0-0.2); BILIRUBIN,TOTAL 0.5 MG/DL (0.2-1.0); BLOOD UREA NITROGEN 17 MG/DL (7-18); CALCIUM LEVEL 9.5 MG/DL (8.8-10.2); CARBON DIOXIDE LEVEL 31 MEQ/L (21-32); CHLORIDE LEVEL 103 MEQ/L (98-107); CK-MB VALUE MASS 2.1 NG/ML (<3.6); CPK CREATINE PHOSPHOKINASE 73 U/L (26-192); CREATININE FOR GFR 0.46 MG/DL (0.55-1.30); ETHYL ALCOHOL (ETHANOL) < 0.003 % (0.000-0.010); GLOMERULAR FILTRATION RATE > 60.0 (>45); GLUCOSE, FASTING 83 MG/DL (70-100); MB/CK RELATIVE INDEX 2.88 (< OR =4); POTASSIUM SERUM 4.4 MEQ/L (3.5-5.1); SALICYLATE LEVEL < 1.7 MG/DL (5.0-30.0); SODIUM LEVEL 137 MEQ/L (136-145); TOTAL PROTEIN 7.3 GM/DL (6.4-8.2); TROPONIN I < 0.02 NG/ML (< 0.10)
[2020-08-09 19:10] VITALS: BP 152/74
--- NOTE | 2020-08-11 11:47 | ECGEPIP ---
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
== END 2020-08-09 19:41 | disposition home or self-care (01) ==
LOC: M ED 15:25
DX: R42 Dizziness and giddiness (principal); R94.31 Abnormal electrocardiogram [ECG] [EKG]; I11.0 Hypertensive heart disease with heart failure; I25.2 Old myocardial infarction; E03.9 Hypothyroidism, unspecified; K21.9 Gastro-esophageal reflux disease without esophagitis; M06.9 Rheumatoid arthritis, unspecified; F33.9 Major depressive disorder, recurrent, unspecified; F41.9 Anxiety disorder, unspecified; Z88.8 Allergy status to other drugs, medicaments and biological substances; Z91.048 Other nonmedicinal substance allergy status; Z79.51 Long term (current) use of inhaled steroids; Z79.899 Other long term (current) drug therapy
CPT/HCPCS: 70450; 80048; 80076; 80164; 80307; 81001; 82140; 82550; 82553; 84443; 84484; 85025; 93005; 93041; 94760; 96360; 96361; 99285; G0480

== ENCOUNTER 2020-08-19 05:18 | Emergency (ER) | payer MEDICARE, MEDICAID ==
[~2020-08-19] VITALS: Ht 162.6 cm; Wt 81.0 kg
[~2020-08-19 05:18] MED LIST changes: +LEVO200T4 PO
[2020-08-19] MEDS ORDERED: CYCL-707 PO (05:38)
[2020-08-19] MEDS ORDERED: MELO7.5T35 PO (05:38)
[2020-08-19] MEDS ORDERED: TYLETAB14 PO (06:06)
[2020-08-19] MEDS ORDERED: KETOROLAC 60MG 2ML VIAL IM ONE (06:15)
[2020-08-19] MEDS ORDERED: ACETAMINOPH W/CODEINE #3 TAB UD PO ONE (06:45)
[2020-08-19 06:48] VITALS: BP 179/83
== END 2020-08-19 06:53 | disposition home or self-care (01) ==
LOC: M ED 05:18
DX: G89.29 Other chronic pain (principal); M79.7 Fibromyalgia; J44.9 Chronic obstructive pulmonary disease, unspecified; Z79.899 Other long term (current) drug therapy; Z88.1 Allergy status to other antibiotic agents; Z88.8 Allergy status to other drugs, medicaments and biological substances
CPT/HCPCS: 96372; 99283; J1885

== ENCOUNTER 2020-10-17 18:28 | Emergency (ER) | payer MEDICARE, MEDICAID ==
[~2020-10-17] VITALS: Ht 162.6 cm; Wt 77.0 kg
[~2020-10-17 18:28] MED LIST changes: +MELO7.5T35 PO; +TYLETAB14 PO
[2020-10-17] MEDS ORDERED: ROSU10TA6 (18:40)
[2020-10-17] MEDS ORDERED: ASPI81CH33 PO (18:40)
[2020-10-17] MEDS ORDERED: SULF500T2 PO (18:40)
[2020-10-17] MEDS ORDERED: MYRB50TA (18:40)
[2020-10-17 20:15] LABS: BASO # 0.1 10^3/uL (0.0-0.2); BASO % 0.7 % (0.0-1.0); EOS # 0.3 10^3/uL (0.0-0.5); EOS % 3.7 % (0.0-3.0); HEMATOCRIT 40.2 % (36.0-47.0); HEMOGLOBIN 12.4 g/dl (12.0-15.5); LYMPH % 14.6 % (24.0-44.0); MEAN CORPUSCULAR HEMOGLOBIN 28.7 pg (27.0-33.0); MEAN CORPUSCULAR HGB CONC 30.8 g/dl (32.0-36.5); MEAN CORPUSCULAR VOLUME 93.1 fl (80.0-96.0); MONO # 0.7 10^3/uL (0.0-0.8); MONO % 10.2 % (0.0-5.0); NEUTROPHILS % 70.5 % (36.0-66.0); PLATELET COUNT, AUTOMATED 290 10^3/uL (150-450); RED BLOOD COUNT 4.32 10^6/uL (4.00-5.40); WHITE BLOOD COUNT 7.1 10^3/uL (4.0-10.0)
[2020-10-17 20:41] LABS: ERYTHROCYTE SEDIMENTATION RATE 41 mm/hr (0-30)
[2020-10-17 20:45] LABS: OSMOLALITY SERUM 293 MOSM/KG (280-301)
[2020-10-17 20:52] LABS: ALBUMIN 3.2 GM/DL (3.2-5.2); ALT/SGPT 24 U/L (12-78); BILIRUBIN,DIRECT 0.1 MG/DL (0.0-0.2); BILIRUBIN,TOTAL 0.4 MG/DL (0.2-1.0); BLOOD UREA NITROGEN 14 MG/DL (7-18); CALCIUM LEVEL 9.3 MG/DL (8.8-10.2); CARBON DIOXIDE LEVEL 30 MEQ/L (21-32); CHLORIDE LEVEL 105 MEQ/L (98-107); CPK CREATINE PHOSPHOKINASE 63 U/L (26-192); CREATININE FOR GFR 0.55 MG/DL (0.55-1.30); GLOMERULAR FILTRATION RATE > 60.0 (>45); GLUCOSE, FASTING 107 MG/DL (70-100); MAGNESIUM LEVEL 1.7 MG/DL (1.8-2.4); POTASSIUM SERUM 4.2 MEQ/L (3.5-5.1); SODIUM LEVEL 141 MEQ/L (136-145); THYROID STIMULATING HORMONE 0.081 uIU/ML (0.358-3.740); TOTAL PROTEIN 6.4 GM/DL (6.4-8.2)
[2020-10-17 20:56] LABS: APPEARANCE, URINE HAZY (CLEAR); BACTERIA, URINE AUTO 1+ (NEGATIVE); BILIRUBIN, URINE AUTO 2+ (NEGATIVE); BLOOD, URINE BLOOD NEGATIVE (NEGATIVE); COLOR, URINE AMBER (YELLOW); GLUCOSE, URINE (UA) AUTO NEGATIVE (NEGATIVE); KETONE, URINE AUTO TRACE mg/dL (NEGATIVE); LEUKOCYTE ESTERASE, URINE AUTO 2+ (NEGATIVE); MUCUS, URINE SMALL (NEGATIVE); NITRITE, URINE AUTO NEGATIVE (NEGATIVE); PROTEIN, URINE AUTO 1+ mg/dL (NEGATIVE); RBC, URINE AUTO 7 /HPF (0-3); SPECIFIC GRAVITY URINE AUTO 1.032 (1.002-1.035); SQUAMOUS EPITHELIAL CELL UR AU 1 /HPF (0-6); UROBILINOGEN, URINE AUTO 0.2 mg/dL (0.0-2.0); WBC, URINE AUTO 10 /HPF (0-3)
[2020-10-17] MEDS ORDERED: KETOROLAC 30 MG/ML 1ML VIAL IV ONE (21:15)
[2020-10-17] MEDS ORDERED: NS 1,000 ML IV ONE (21:15)
[2020-10-17] MEDS ORDERED: MAG SULF 1GM/100ML (MAG RUN) 1 GM in IV 1 EA IV ONE (21:15)
[2020-10-17] MEDS ORDERED: LEVO150T7 PO (22:46)
[2020-10-17] MEDS ORDERED: VITA50005 PO (22:46)
[2020-10-17 23:00] VITALS: BP 170/90
== END 2020-10-17 23:18 | disposition home or self-care (01) ==
LOC: M ED 18:28
DX: E03.9 Hypothyroidism, unspecified (principal); G89.29 Other chronic pain; I10 Essential (primary) hypertension; M79.7 Fibromyalgia; Z79.890 Hormone replacement therapy; Z79.899 Other long term (current) drug therapy; Z79.82 Long term (current) use of aspirin; Z91.048 Other nonmedicinal substance allergy status; Z88.8 Allergy status to other drugs, medicaments and biological substances; Z95.5 Presence of coronary angioplasty implant and graft
CPT/HCPCS: 80048; 80076; 81001; 82550; 83735; 83930; 84443; 85025; 85652; 96365; 96375; 99284; J1885; J3475

== ENCOUNTER → 2020-10-22 | Outpatient (CLI) | payer MEDICARE, MEDICAID ==
[~2020-10-22] MED LIST changes: +ACET1TAB16 PO; +ASPI81CH33 PO; -MECL12.589 PO; +MECL12.590 PO; +MYRB50TA; +ROSU10TA6; +SULF500T2 PO; +VITA50005 PO
--- NOTE | 2020-10-22 15:22 | REPMRS ---
Patient History The patient states she had a clinical breast exam in September 2020. Family history of breast cancer at age 50 or over in maternal grandmother, colorectal cancer in maternal cousin. Digital Woman Screen Mammo: October 22, 2020 - Exam #: [id number] Bilateral CC and MLO view(s) were taken. Technologist: Alyson Roper Technologist Prior study comparison: February 21, 2019, bilateral digital mammo screening bilat, performed at [facility]. October 02, 2016, digital woman screen mammo performed at [facility]. December 04, 2014, digital woman screen mammo performed at [facility]. FINDINGS: There are scattered fibroglandular densities. The Volpara volumetric breast density category is:B. There has been no change in the appearance of the mammogram from the prior studies. There is a mild amount of scattered fibroglandular density which is fairly symmetric. There is no interval development of dominant mass, architectural distortion, or grouped microcalcification suggestive of malignancy. 3-D tomosynthesis shows no additional findings. Assessment: BI-RADS/ACR category 1 mammogram. Negative Mammogram. Recommendation Routine screening mammogram of both breasts in 1 year (for women over age 40). This patient's Lifetime Breast Cancer Risk is estimated at 6.9 %. This mammogram was interpreted with the aid of an FDA-approved computer-aided dectection system. Electronically Signed By: Simon Guerra MD 10/22/20 [id number]
== END ==
LOC: M WHC 13:30
PROVIDERS: ATTEND Nurse Practitioner Family
DX: Z01.419 Encounter for gynecological examination (general) (routine) without abnormal findings (principal); Z12.31 Encounter for screening mammogram for malignant neoplasm of breast; Z80.3 Family history of malignant neoplasm of breast
CPT/HCPCS: 77063; 77067; G0101

== ENCOUNTER 2020-10-23 09:09 | Emergency (ER) | payer MEDICARE, MEDICAID ==
[~2020-10-23 09:09] MED LIST changes: -ACET1TAB16 PO
[2020-10-23] MEDS ORDERED: ACETAMINOPH W/CODEINE #3 TAB UD PO ONE (10:15)
--- NOTE | 2020-10-23 10:28 | REP ---
INDICATION: CHEST PAIN. COMPARISON: Comparison chest x-ray July 05, 2020. TECHNIQUE: Two views.. FINDINGS: There is a large hiatal hernia again noted behind the heart. The lungs are well inflated and otherwise free of infiltrate. Pleural angles are sharp. Heart size is mildly enlarged unchanged. Cardiothoracic ratio today is 51%. The thoracic aorta is tortuous as before. A prosthetic right shoulder joint is seen. There are mild degenerative changes in the thoracic spine. IMPRESSION: Large hiatal hernia again noted. Mildly prominent heart. No infiltrate seen. Otherwise no acute disease.. <Electronically signed by Simon Guerra > 10/23/20 1024
[2020-10-23 10:44] LABS: BASO % 0.3 % (0.0-1.0); EOS # 0.4 10^3/uL (0.0-0.5); EOS % 4.4 % (0.0-3.0); HEMATOCRIT 38.7 % (36.0-47.0); HEMOGLOBIN 11.8 g/dl (12.0-15.5); LYMPH # 1.2 10^3/uL (1.5-5.0); LYMPH % 12.3 % (24.0-44.0); MEAN CORPUSCULAR HEMOGLOBIN 28.3 pg (27.0-33.0); MEAN CORPUSCULAR HGB CONC 30.5 g/dl (32.0-36.5); MEAN CORPUSCULAR VOLUME 92.8 fl (80.0-96.0); MONO # 0.9 10^3/uL (0.0-0.8); MONO % 9.8 % (0.0-5.0); NEUTROPHILS # 6.8 10^3/uL (1.5-8.5); NEUTROPHILS % 72.9 % (36.0-66.0); PLATELET COUNT, AUTOMATED 297 10^3/uL (150-450); RED BLOOD COUNT 4.17 10^6/uL (4.00-5.40); WHITE BLOOD COUNT 9.4 10^3/uL (4.0-10.0)
[2020-10-23 11:16] LABS: BLOOD UREA NITROGEN 18 MG/DL (7-18); CALCIUM LEVEL 9.2 MG/DL (8.8-10.2); CARBON DIOXIDE LEVEL 30 MEQ/L (21-32); CHLORIDE LEVEL 105 MEQ/L (98-107); CK-MB VALUE MASS 1.7 NG/ML (<3.6); CPK CREATINE PHOSPHOKINASE 61 U/L (26-192); FREE T4 1.52 NG/DL (0.76-1.46); GLOMERULAR FILTRATION RATE > 60.0 (>45); GLUCOSE, FASTING 105 MG/DL (70-100); MB/CK RELATIVE INDEX 2.79 (< OR =4); NT-PRO BNP 962 PG/ML (<125); POTASSIUM SERUM 4.5 MEQ/L (3.5-5.1); SODIUM LEVEL 138 MEQ/L (136-145); THYROID STIMULATING HORMONE 0.323 uIU/ML (0.358-3.740); TROPONIN I < 0.02 NG/ML (< 0.10)
[2020-10-23] MEDS ORDERED: ACET1TAB16 PO (11:51)
[2020-10-23 12:24] VITALS: BP 160/95
== END 2020-10-23 12:25 | disposition home or self-care (01) ==
LOC: M ED 09:09
DX: R79.89 Other specified abnormal findings of blood chemistry (principal); G89.29 Other chronic pain; K44.9 Diaphragmatic hernia without obstruction or gangrene; M51.34 Other intervertebral disc degeneration, thoracic region; I10 Essential (primary) hypertension; I25.2 Old myocardial infarction; I25.10 Atherosclerotic heart disease of native coronary artery without angina pectoris; J45.909 Unspecified asthma, uncomplicated; F41.9 Anxiety disorder, unspecified; Z95.5 Presence of coronary angioplasty implant and graft; Z87.891 Personal history of nicotine dependence; Z88.1 Allergy status to other antibiotic agents; Z88.6 Allergy status to analgesic agent; Z91.048 Other nonmedicinal substance allergy status; Z79.82 Long term (current) use of aspirin; Z79.899 Other long term (current) drug therapy

== ENCOUNTER 2020-10-24 08:43 | Emergency (ER) | payer MEDICARE, MEDICAID ==
[~2020-10-24] VITALS: Ht 162.6 cm; Wt 80.0 kg
[~2020-10-24 08:43] MED LIST changes: +ACET1TAB16 PO
[2020-10-24 10:36] VITALS: BP 164/76
== END 2020-10-24 10:36 | disposition home or self-care (01) ==
LOC: EDBD 08:43 → M ED 08:43
DX: M79.7 Fibromyalgia (principal); G89.29 Other chronic pain; E03.9 Hypothyroidism, unspecified; I25.2 Old myocardial infarction; I10 Essential (primary) hypertension; E78.5 Hyperlipidemia, unspecified; F33.9 Major depressive disorder, recurrent, unspecified; K21.9 Gastro-esophageal reflux disease without esophagitis; G25.81 Restless legs syndrome; M06.9 Rheumatoid arthritis, unspecified; Z79.890 Hormone replacement therapy; Z79.51 Long term (current) use of inhaled steroids; Z79.899 Other long term (current) drug therapy; Z79.82 Long term (current) use of aspirin; Z91.048 Other nonmedicinal substance allergy status; Z88.8 Allergy status to other drugs, medicaments and biological substances; Z95.5 Presence of coronary angioplasty implant and graft

== ENCOUNTER → 2020-10-31 | Outpatient (CLI) | payer MEDICARE ==
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
== END ==
LOC: M PAIN 13:00
PROVIDERS: ATTEND Family Medicine
DX: M79.7 Fibromyalgia (principal); E03.9 Hypothyroidism, unspecified; G25.81 Restless legs syndrome; K21.9 Gastro-esophageal reflux disease without esophagitis; Z86.59 Personal history of other mental and behavioral disorders; Z96.611 Presence of right artificial shoulder joint; Z96.643 Presence of artificial hip joint, bilateral; Z96.652 Presence of left artificial knee joint; Z87.891 Personal history of nicotine dependence; Z88.1 Allergy status to other antibiotic agents; Z88.8 Allergy status to other drugs, medicaments and biological substances; Z79.51 Long term (current) use of inhaled steroids; Z79.899 Other long term (current) drug therapy

== ENCOUNTER 2020-11-10 11:50 | Emergency (ER) | payer MEDICARE ==
[~2020-11-10] VITALS: Ht 160 cm; Wt 78.6 kg
[2020-11-10] MEDS ORDERED: GABA-1171 (12:04)
[2020-11-10 12:32] LABS: BASO % 0.1 % (0.0-1.0); HEMATOCRIT 36.5 % (36.0-47.0); LYMPH # 0.7 10^3/uL (1.5-5.0); LYMPH % 8.2 % (24.0-44.0); MEAN CORPUSCULAR HGB CONC 30.1 g/dl (32.0-36.5); MEAN CORPUSCULAR VOLUME 89.5 fl (80.0-96.0); MONO # 0.3 10^3/uL (0.0-0.8); MONO % 3.7 % (0.0-5.0); NEUTROPHILS # 7.6 10^3/uL (1.5-8.5); NEUTROPHILS % 87.5 % (36.0-66.0); PLATELET COUNT, AUTOMATED 398 10^3/uL (150-450); RED BLOOD COUNT 4.08 10^6/uL (4.00-5.40); WHITE BLOOD COUNT 8.7 10^3/uL (4.0-10.0)
--- NOTE | 2020-11-10 12:45 | REP ---
INDICATION: peripheral edema, sob COMPARISON: 10/23/2020 TECHNIQUE: PA and lateral. FINDINGS: Mediastinum and cardiac silhouette are stable with large hiatal hernia again identified. Lung hdz demonstrate diffuse chronic interstitial changes. No focal consolidation, effusion, or pneumothorax. Skeletal structures demonstrate age-related degenerative changes and right shoulder replacement. IMPRESSION: Chronic stable changes. Hiatal hernia. <Electronically signed by Jackson Covington > 11/10/20 [id number]
[2020-11-10 12:59] LABS: BLOOD UREA NITROGEN 17 MG/DL (7-18); CARBON DIOXIDE LEVEL 28 MEQ/L (21-32); CHLORIDE LEVEL 105 MEQ/L (98-107); CK-MB VALUE MASS 2.5 NG/ML (<3.6); CPK CREATINE PHOSPHOKINASE 74 U/L (26-192); GLOMERULAR FILTRATION RATE > 60.0 (>45); GLUCOSE, FASTING 123 MG/DL (70-100); MB/CK RELATIVE INDEX 3.38 (< OR =4); NT-PRO BNP 1845 PG/ML (<125); POTASSIUM SERUM 4.2 MEQ/L (3.5-5.1); SODIUM LEVEL 139 MEQ/L (136-145); TROPONIN I < 0.02 NG/ML (< 0.10)
[2020-11-10] MEDS ORDERED: FUROSEMIDE 20MG/2ML VIAL (J1940) IV ONE (13:15)
[2020-11-10] MEDS: ACETAMINOPH W/CODEINE #3 TAB UD PO ONE ×2 (14:20→15:38)
[2020-11-10] MEDS ORDERED: LASI20TA3 PO (15:11)
[2020-11-10] MEDS ORDERED: ACET1TAB16 PO (15:11)
[2020-11-10 15:13] VITALS: BP 161/76
--- NOTE | 2020-11-11 12:22 | ECGEPIP ---
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 Order Number: [id number] Reading MD: Lucila Lan Measurements Intervals [place] Rate: 88 P: 55 [place]: 170 QRS: -7 QRSD: 100 T: 32 QT: 359 QTc: 435 Interpretive Statements SINUS RHYTHM LEFT ATRIAL ENLARGEMENT NONSPECIFIC T-WAVE ABNORMALITY SIMILAR 08/09/20 Electronically Signed on 11-11-2020 12:21:52 EST by Lucila Lan
== END 2020-11-10 15:43 | disposition home or self-care (01) ==
LOC: M ED 11:50
DX: I50.9 Heart failure, unspecified (principal); M79.7 Fibromyalgia; R60.0 Localized edema; Z79.899 Other long term (current) drug therapy; Z79.82 Long term (current) use of aspirin; Z88.1 Allergy status to other antibiotic agents; Z88.8 Allergy status to other drugs, medicaments and biological substances; Z91.048 Other nonmedicinal substance allergy status
CPT/HCPCS: 71046; 80048; 82550; 82553; 83880; 84484; 85025; 93005; 96374; 99284; J1940

== ENCOUNTER → 2020-11-12 | Outpatient (CLI) | payer MEDICARE ==
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
== END ==
LOC: M PAIN 10:30
PROVIDERS: ATTEND Family Medicine
DX: M79.7 Fibromyalgia (principal); M05.79 Rheumatoid arthritis with rheumatoid factor of multiple sites without organ or systems involvement; E03.9 Hypothyroidism, unspecified; G25.81 Restless legs syndrome; K21.9 Gastro-esophageal reflux disease without esophagitis; Z86.59 Personal history of other mental and behavioral disorders; Z96.643 Presence of artificial hip joint, bilateral; Z96.611 Presence of right artificial shoulder joint; Z96.652 Presence of left artificial knee joint; Z95.5 Presence of coronary angioplasty implant and graft; Z87.891 Personal history of nicotine dependence; Z88.1 Allergy status to other antibiotic agents; Z88.8 Allergy status to other drugs, medicaments and biological substances; Z79.51 Long term (current) use of inhaled steroids; Z79.899 Other long term (current) drug therapy

== ENCOUNTER → 2020-11-13 | Outpatient (REF) | payer MEDICARE ==
[2020-11-13 17:16] LABS: ALBUMIN 3.4 GM/DL (3.2-5.2); ALT/SGPT 52 U/L (12-78); BILIRUBIN,TOTAL 0.3 MG/DL (0.2-1.0); BLOOD UREA NITROGEN 22 MG/DL (7-18); CALCIUM LEVEL 9.3 MG/DL (8.8-10.2); CARBON DIOXIDE LEVEL 36 MEQ/L (21-32); CHLORIDE LEVEL 100 MEQ/L (98-107); FERRITIN 108 NG/ML (8-252); FREE T4 1.45 NG/DL (0.76-1.46); GLOMERULAR FILTRATION RATE > 60.0 (>45); GLUCOSE, FASTING 89 MG/DL (70-100); IRON (FE) 24 UG/DL (50-170); PERCENT SATURATION 10.2 % (13.2-45.0); POTASSIUM SERUM 4.1 MEQ/L (3.5-5.1); SODIUM LEVEL 138 MEQ/L (136-145); TOTAL 25(OH) VITAMIN D 60.8 NG/ML (30.0-100.0); TOTAL IRON BINDING CAPACITY 236 UG/DL (250-450); TOTAL PROTEIN 7.1 GM/DL (6.4-8.2)
[2020-11-13 17:19] LABS: BASO % 0.3 % (0.0-1.0); EOS # 0.5 10^3/uL (0.0-0.5); EOS % 5.9 % (0.0-3.0); HEMATOCRIT 39.3 % (36.0-47.0); LYMPH # 1.3 10^3/uL (1.5-5.0); LYMPH % 14.9 % (24.0-44.0); MEAN CORPUSCULAR HEMOGLOBIN 28.2 pg (27.0-33.0); MEAN CORPUSCULAR HGB CONC 30.5 g/dl (32.0-36.5); MEAN CORPUSCULAR VOLUME 92.3 fl (80.0-96.0); MONO % 10.7 % (0.0-5.0); NEUTROPHILS % 67.9 % (36.0-66.0); PLATELET COUNT, AUTOMATED 406 10^3/uL (150-450); RED BLOOD COUNT 4.26 10^6/uL (4.00-5.40); WHITE BLOOD COUNT 8.9 10^3/uL (4.0-10.0)
[2020-11-15 14:08] LABS: Lyme Disease IgG/IgM Antibodie <0.91 ISR (0.00-0.90); Lyme Disease IgM Ab Quantitati <0.80 index (0.00-0.79)
== END ==
LOC: M LAB REF 16:23
PROVIDERS: ATTEND Physician Assistant
DX: M12.9 Arthropathy, unspecified (principal); E55.9 Vitamin D deficiency, unspecified; E78.5 Hyperlipidemia, unspecified; D50.9 Iron deficiency anemia, unspecified; E03.9 Hypothyroidism, unspecified; Z79.899 Other long term (current) drug therapy

== ENCOUNTER → 2020-11-27 | Outpatient (CLI) | payer MEDICARE ==
--- NOTE | 2020-11-29 00:14 | ECWPNPC ---
PATIENT NAME: TEDDY GOODWIN : 1955 GENDER: FEMALE VISIT DATE: 11/27/2020 DISCHARGE DATE: 11/27/20 1140 VISIT LOCKED DATE TIME: PHYSICIAN: CURTIS SHAW RESOURCE: CURTIS SHAW REASON FOR APPOINTMENT 1. NEW MEDICATION HISTORY OF PRESENT ILLNESS DEPRESSION SCREENIN-YEAR-OLD FEMALE IN FOR CHRONIC PAIN FOLLOW-UP. AT LAST CLINIC VISIT PATIENT'S LYRICA WAS INCREASED AND SHE ADMITS TODAY THAT THIS HAS BEEN BENEFICIAL. SHE DOES QUESTION IF AN INCREASE IN DOSAGE WOULD BE OF MORE BENEFIT. SHE HAS REQUESTED REFERRAL FOR MEDICAL MARIJUANA. PHQ-9 LITTLE INTEREST OR PLEASURE IN DOING THINGSNOT AT ALL FEELING DOWN, DEPRESSED, OR HOPELESSMORE THAN HALF THE DAYS TROUBLE FALLING OR STAYING ASLEEP, OR SLEEPING TOO MUCHNEARLY EVERY DAY FEELING TIRED OR HAVING LITTLE ENERGYNEARLY EVERY DAY POOR APPETITE OR OVEREATING SEVERAL DAYS FEELING BAD ABOUT YOURSELF-OR THAT YOU ARE A FAILURE OR HAVE LET YOURSELF OR YOUR FAMILY DOWN NOT AT ALL MOVING OR SPEAKING SO SLOWLY THAT OTHER PEOPLE COULD HAVE NOTICED. OR THE OPPOSITE- BEING SO FIDGETY OR RESTLESS THAT YOU HAVE BEEN MOVING AROUND A LOT MORE THAN USUALNOT AT ALL THOUGHTS THAT YOU WOULD BE BETTER OFF , OR OF HURTING YOURSELF IN SOME WAY?NOT AT ALL PHQ-2 (2015 EDITION) LITTLE INTEREST OR PLEASURE IN DOING THINGS?NOT AT ALL FEELING DOWN, DEPRESSED, OR HOPELESS?NEARLY EVERY DAY TOTAL SCORE3 GENERAL: -. FALL RISK SCREENING: SCREENING :ONE FALL WITH INJURY IN THE PAST YEAR SYNCOPAL AND FELL INTO BOOKCASE WITH BRUISING. DID NOT RECEIVE MEDICAL TREATMENT. PAIN SCREENING: PATIENT HAS A COMPLAINT OF ACUTE OR CHRONIC PAIN :NO NURSING NOTE: -. PAIN CENTER INTAKE QUESTIONS: DO YOU HAVE A HISTORY OF MRSA? :NO DO YOU TAKE A BLOOD THINNERS? :NO DO YOU HAVE ANY BLEEDING DISORDERS? :NO ANY NEW NUMBNESS OR WEAKNESS IN YOUR LEGS OR ARMS? :YES GENERALIZED WEAKNESS. ANY PACEMAKER,DEFIBRILLATOR, OR DORSAL COLUMN STIMULATOR? :NO DO YOU HAVE ANY RASHES OR OPEN SORES? :NO ARE YOU ALLERGIC TO IV DYE? :NO ARE YOU DIABETIC? :NO ANY NEW PROBLEMS WITH YOUR MEDICATIONS? :NO HAVE YOU RECEIVED A VACCINE IN THE PAST 30 DAYS? :NO DO YOU PLAN TO RECEIVE A VACCINE IN THE NEXT 21 DAYS? :YES IF SO WHAT VACCINE AND WHEN? PLANS ON RECEIVING THE COVID VACCINATION. DO YOU NEED ANY PRESCRIPTION? :NO DO YOU TAKE ANY IMMUNOSUPPRESSIVE MEDICATIONS? :NO IS THERE A CHANCE YOU COULD BE ? :NO ARE YOU BREAST FEEDING? :NO CURRENT MEDICATIONS TAKING SULFASALAZINE 500 MG TABLET 2 TABLET ORALLY BID TAKING ASPIRIN 81 81 MG TABLET DELAYED RELEASE 1 TABLET ORALLY ONCE A DAY TAKING ROPINIROLE HCL 1 MG TABLET 1 TABLET ORALLY 4 DAILY TAKING MELOXICAM 7.5 MG TABLET 1 TABLET ORALLY TWICE A DAY TAKING VITAMIN D2 50 MCG (2000 UT) TABLET 94578 UNITS1 TABLET ORALLY ONCE WEEKLY TAKING PREDNISONE 10 MG TABLET 2 TABLETS DAILY FOR 3 DAYS, 1 TABLET DAILY FOR 3 DAYS, 1/2 TAB DAILY FOR 3 DAYS THEN STOP PRN FLARE ORALLY ONCE A DAY TAKING MYRBETRIQ 50 MG TABLET EXTENDED RELEASE 24 HOUR 1 TABLET ORALLY ONCE A DAY TAKING LEVOTHYROXINE SODIUM 137MCG TABLET 1 TABLET EVERY MORNING ON AN EMPTY STOMACH ORALLY ONCE A DAY TAKING LISINOPRIL 2.5 2.5 MG TABLET 1 TAB(S) ORAL ONCE A DAY TAKING MULTIVITAMINS OTC TABLET 1 TAB(S) ORALLY ONCE A DAY TAKING PANTOPRAZOLE SODIUM 40 MG TABLET DELAYED RELEASE 1 TAB(S) ORALLY ONCE A DAY TAKING PREMARIN 0.625 MG/GM CREAM 1 GM VAGINAL 2XWK TAKING REQUIP 0.5 MG TABLET 1 TAB(S) ORALLY ONCE A DAY TAKING VITAMIN C 500 MG TABLET 1 TAB(S) ORALLY ONCE A DAY TAKING VITAMIN C 1000 MG TABLET 1 TABLET ORALLY ONCE A DAY TAKING CALCIUM 600 MG TABLET 1 TABLET WITH MEALS ORALLY TWICE A DAY TAKING MULTIVITAMIN WOMEN 50+ - TABLET DIRECTED ORALLY TAKING VITAMIN B12 1000 MCG TABLET EXTENDED RELEASE TAKES 2500 MCG 1 TABLET ORALLY ONCE A DAY TAKING CO Q 10 100 MG CAPSULE 1 CAPSULE WITH A MEAL ORALLY ONCE A DAY TAKING GABAPENTIN 100 MG CAPSULE 1 CAPSULE ORALLY TWICE A DAY TAKING SLEEP AID 25 MG TABLET 2 TABLET AT BEDTIME NEEDED ORALLY ONCE A DAY TAKING PROAIR HFA 108 (90 BASE) MCG/ACT AEROSOL SOLUTION INHALE 2 PUFFS PO QID PRN INHALATION TAKING BREO ELLIPTA 200-25 MCG/INH AEROSOL POWDER BREATH ACTIVATED INHALE ONE PUFF PO EVERY DAY INHALATION TAKING INCRUSE ELLIPTA 62.5 MCG/INH AEROSOL POWDER BREATH ACTIVATED INHALE 1 PUFF PO DAILY INHALATION TAKING ROSUVASTATIN CALCIUM 10 MG TABLET TK 1 T PO QD ORAL TAKING ACETAMINOPHEN 500 MG TABLET 2 TABLET NEEDED ORALLY EVERY 12 HRS NEEDED FOR PAIN NOT-TAKING ABILIFY 5 MG TABLET 1 TAB(S) P.O. ONCE A DAY NOT-TAKING ACETAMINOPHEN-CODEINE #4 300-60 MG TABLET 1 TAB(S) P.O. NEEDED NOT-TAKING AMITRIPTYLINE HCL 25 MG TABLET 1 TAB(S) P.O. ONCE A DAY NOT-TAKING ASPIRIN 325 MG TABLET 1 TABLET ORALLY ONCE A DAY NOT-TAKING COREG 3.125MG TABLET 1 TAB(S) ORAL TWICE A DAY NOT-TAKING DEPAKOTE ER 500 MG TABLET EXTENDED RELEASE 24 HOUR 1 TAB(S) ORALLY THREE TIMES A DAY NOT-TAKING LASIX 20 MG TABLET 1 TABLET ORALLY ONCE A DAY NOT-TAKING LIPITOR 40 MG TABLET 1 TABLET ORALLY ONCE A DAY NOT-TAKING PAXIL 30 MG TABLET 1 TAB(S) ORALLY ONCE A DAY NOT-TAKING PLAVIX 75 MG TABLET 1 TABLET ORALLY ONCE A DAY NOT-TAKING ALEVE 220 MG TABLET 1 TABLET WITH FOOD OR MILK NEEDED ORALLY EVERY 12 HRS DISCONTINUED MYRBETRIQ 50 MG TABLET EXTENDED RELEASE 24 HOUR 1 TABLET ORALLY ONCE A DAY, NOTES: DULICATE UNKNOWN ROPINIROLE HCL 1 MG TABLET TK 1 T PO HS ORAL UNKNOWN MYRBETRIQ 50 MG TABLET EXTENDED RELEASE 24 HOUR TK 1 T PO EVERY DAY ORAL UNKNOWN PANTOPRAZOLE SODIUM 20 MG TABLET DELAYED RELEASE 1 TAB(S) P.O. ONCE A DAY UNKNOWN FERROUS SULFATE 325 MG CAPSULE ORALLY DAILY UNKNOWN LEVOTHYROXINE SODIUM 150 MCG TABLET 1 TABLET IN THE MORNING ON AN EMPTY STOMACH ORALLY ONCE A DAY UNKNOWN ACETAMINOPHEN-CODEINE #3 300-30 MG TABLET 1 TABLET NEEDED ORALLY EVERY 12 HRS NEEDED FOR PAIN UNKNOWN CLINDAMYCIN HCL 300 MG CAPSULE 2 CAPSULES ORALLY EVERY 8 HRS UNKNOWN TIZANIDINE HCL 2 MG TABLET 1 TABLET NEEDED ORALLY AT BEDTIME UNKNOWN LYRICA 100 MG CAPSULE 1 CAPSULE ORALLY TWICE DAILY UNKNOWN CARVEDILOL 6.25 MG TABLET TAKE 1 TABLET BY MOUTH TWICE A DAY ORAL UNKNOWN ATORVASTATIN CALCIUM 40 MG TABLET TK 1 T PO D ORAL UNKNOWN DULOXETINE HCL 60 MG CAPSULE DELAYED RELEASE PARTICLES TK 1 C PO QD ORAL UNKNOWN LEVOTHYROXINE SODIUM 112 MCG TABLET 1 TABLET EVERY MORNING ON AN EMPTY STOMACH ORALLY ONCE A DAY UNKNOWN IPRATROPIUM-ALBUTEROL 0.5-2.5 (3) MG/3ML SOLUTION INHALATION UNKNOWN HYDROXYZINE HCL 10 MG TABLET TK 1 OR 2 TS PO Q 6 H NEEDED FOR PANIC ORAL UNKNOWN AZELASTINE HCL 0.1 % SOLUTION U 2 SPRAYS IEN BID NASAL UNKNOWN ARIPIPRAZOLE 5 MG TABLET TK 1 T PO QD ORAL UNKNOWN DIVALPROEX SODIUM ER 500 MG TABLET EXTENDED RELEASE 24 HOUR TK 1 T PO QD ORAL UNKNOWN HYDROCODONE-ACETAMINOPHEN 5-325 MG TABLET (SCHEDULE II DRUG) ORAL UNKNOWN TRAZODONE HCL 100 MG TABLET TK 1 T PO HS ORAL MEDICATION LIST REVIEWED AND RECONCILED WITH THE PATIENT PAST MEDICAL HISTORY RA HYPOTHYROIDISM RLS DEPRESSION AMI, 02/2011 HTN CAD HIGH CHOLESTEROL GERD POSTMENOPAUSE LYMPH NODES ABDOMEN AND LUNG PNEUMONIA- RECENT DIAGNOSIS OF DOUBLE PNEUMONIA ALLERGIES DOXYCYCLINE HYCLATE: RASH - ALLERGY PERMETHRIN: RASH - ALLERGY HYDROXYZINE HCL: RASH - ALLERGY SURGICAL HISTORY IFEANYI HIP REPLACEMENTS RIGHT SHOULDER REPLACEMENT HYSTERECTOMY, 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 2 HALF BROTHERS AND 4 STEP SISTERS, ALL SON(S): ALIVE, AGES 41,37 DAUGHTER(S): ALIVE, TWINS, AGES 39,39 MATERNAL GRAND MOTHER: , BREAST CANCER 5 BROTHER(S) , 5 SISTER(S) . 2 SON(S) , 2 DAUGHTER(S) - HEALTHY. DENIES COLON OR OVARIAN CANCERS.\NMOTHER SIDE- CARDIAC DISEASE, CA, DM, THYROID DISEASE. SOCIAL HISTORY GENERAL: TOBACCO USE ARE YOU A:FORMER SMOKER QUIT SIX MONTHS AGO., FORMER SMOKER HOW LONG HAS IT BEEN SINCE YOU LAST SMOKED?6-12 MONTHS LATEX QUESTIONNAIRE LATEX ALLERGY : HAVE YOU EVER DEVELOPED ANY TYPE OF REACTION AFTER HANDLING LATEX PRODUCTS SUCH RUBBER GLOVES, CONDOMS, DIAPHRAGMS, BALLOONS, SOCKS, OR UNDERWEAR?NO LATEX ALLERGY : HAVE YOU EVER DEVELOPED ANY TYPE OF REACTION DURING OR AFTER DENTAL APPOINTMENT, VAGINAL/RECTAL EXAMINATION, SURGICAL PROCEDURE, OR ANY OTHER EXPOSURE?NO LATEX RISK : HAVE YOU EVER HAD ANY DIFFICULTY BREATHING OR HIVES AFTER EATING OR HANDLING ANY FRUITS, OR VEGETABLES; SUCH KIWI, BANANAS, STONE FRUITS, OR CHESTNUTSNO LATEX RISK : DO YOU HAVE A PREVIOUS PERSONAL HISTORY OF MORE THAN NINE SURGERIES, SPINA BIFIDA, OR REPEATED CATHERIZATIONS? NO LATEX RISK : ARE YOU FREQUENTLY EXPOSED TO LATEX PRODUCTS IN YOUR OCCUPATION?NO DATE ASKED : 11/27/2020 LUNG CANCER SCREENING SMOKING STATUS:FORMER SMOKER BMI CARE GOAL FOLLOW-UP ABOVE NORMAL BMI FOLLOW-UPGIVING ENCOURAGEMENT TO EXERCISE ALCOHOL SCREENING DID YOU HAVE A DRINK CONTAINING ALCOHOL IN THE PAST YEAR?YES HOW OFTEN DID YOU HAVE SIX OR MORE DRINKS ON ONE OCCASION IN THE PAST YEAR?NEVER (0 POINTS) HOW MANY DRINKS DID YOU HAVE ON A TYPICAL DAY WHEN YOU WERE DRINKING IN THE PAST YEAR?1 OR 2 (0 POINTS) HOW OFTEN DID YOU HAVE A DRINK CONTAINING ALCOHOL IN THE PAST YEAR?TWO TO FOUR TIMES A MONTH (2 POINTS) POINTS2 INTERPRETATIONNEGATIVE RECREATIONAL DRUG USE DRUG USE?YES SMOKED MARIJUANA FOR SLEEP AND PAIN 11/19/21.MARIJUANA CAFFEINE CAFFEINE USE?YES 1 CUP DAILY SEXUAL HX HAD SEX IN THE LAST 12 MONTHS (VAGINAL, ORAL, OR ANAL)?NO HAVE YOU EVER HAD AN STD?YES CHLAMYDIA?YES ZOROASTRIANISM NO CHURCH BELIEFS THAT WOULD IMPACT HEALTH CARE. LANGUAGE NORTHERN IRISH. 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 DIET: REGULAR. EXERCISE: WALKS AND ACTIVE IN HOUSE. MARITAL STATUS: . OTHERS AT HOME: LIVES ALONE. HOUSING: RENTS APARTMENT. ADVANCE DIRECTIVE ADVANCE DIRECTIVE DISCUSSED WITH PATIENT:YES BLAISE BERGER [phone] DAUGHTER HEALTH CARE PROXY. 11/27/20 HOSPITALIZATION/MAJOR DIAGNOSTIC PROCEDURE SURGERY RELATED CARDIAC RELATED R LEG WOUND WITH CELULITIS [facility] 06/10-07/11 REVIEW OF SYSTEMS CONSTITUTIONAL: ANY RECENT FEVER NO . CHILLS NO . WEIGHT CHANGE OF UNKNOWN REASONS NO . GASTROENTEROLOGY: NEW UNEXPLAINABLE CHANGES IN BOWEL CONTROL NO . CONSTIPATION NO . GENITOURINARY: ANY NEW CHANGE IN BLADDER CONTROL? NO . NEUROLOGY: NEW ONSET DIZZINESS OR NEUROLOGICAL CHANGES NOT MENTIONED NO . NEW NUMBNESS OR PAIN PATTERNS NOT MENTIONED AND PERTINENT TO TODAY'S VISIT NO . CARDIOLOGY: NEW CHEST PRESSURE NO . NEW CHEST PAIN NO . RESPIRATORY: UNEXPLAINABLE COUGH NO . NEW SHORTNESS OF BREATH NO . VITAL SIGNS WT 172.8 LBS, HT 64 IN, BMI 29.66 INDEX, BP 132/71 MM HG, HR 95 /MIN, RR 18 /MIN, TEMP 98.3 F, OXYGEN SAT % 92%, SAFE IN ENV? (Y/N) YES, NA INITIALS AW 0954, REVIEWED BY: STEVENSON WALLACE MA. EXAMINATION GENERAL EXAMINATION: GENERALNO ACUTE DISTRESS, WELL NOURISHED AND HYDRATED. PSYCHAPPROPRIATE MOOD AND AFFECT . LUNGS:CLEAR TO AUSCULTATION BILATERALLY, NO WHEEZES, RHONCHI, RALES. HEART:NO MURMURS, REGULAR RATE AND RHYTHM. ASSESSMENTS FIBROMYALGIA - M79.7 (PRIMARY) TREATMENT FIBROMYALGIA STOP GABAPENTIN CAPSULE, 100 MG, 1 CAPSULE, ORALLY, TWICE A DAY INCREASE LYRICA CAPSULE, 150 MG, 1 CAPSULE, ORALLY, TWICE DAILY, 30 DAY(S), 60 NOTES: 65-YEAR-OLD FEMALE FOR CHRONIC PAIN FOLLOW-UP. GIVEN PRESENTING SYMPTOMS RECOMMEND INCREASING LYRICA WITH FOLLOW-UP IN 2 MONTHS. REFERRAL FOR MEDICAL MARIJUANA TO BE PLACED. PATIENT HAS EXPRESSED A PRESENTING OF AND WAS IN AGREEMENT WITH TREATMENT PLAN. GIVEN TIME TO ASK QUESTIONS AND EXPRESS CONCERNS. , ISTOP REGISTRY REVIEWED AND DEMONSTRATES COMPLLIANCE. (REF # [id number] ). [facility] [place] [facility] CAREUNKNOWN REASON:MEDICAL MARIJUANA PROCEDURE CODES FA211 ESTABILISHED PATIENT [facility] FACILITY CHARGE DISPOSITION & COMMUNICATION FOLLOW UP 2 MONTHS (REASON: FIBROMYALGIA) ELECTRONICALLY SIGNED BY VERNON TUCKER ON 11/28/2020 AT 09:02 AM EST DISCLAIMER : THIS IS A VISIT SUMMARY EXTRACTED FROM THE [employer] CHART. IT IS NOT A COPY OF THE [employer] PROGRESS NOTE. DADA
== END ==
LOC: M PAIN 09:45
PROVIDERS: ATTEND Family Medicine
DX: M79.7 Fibromyalgia (principal); E03.9 Hypothyroidism, unspecified; G25.81 Restless legs syndrome; K21.9 Gastro-esophageal reflux disease without esophagitis; Z86.59 Personal history of other mental and behavioral disorders; Z96.643 Presence of artificial hip joint, bilateral; Z96.611 Presence of right artificial shoulder joint; Z96.652 Presence of left artificial knee joint; Z95.5 Presence of coronary angioplasty implant and graft; Z87.891 Personal history of nicotine dependence; Z88.1 Allergy status to other antibiotic agents; Z88.8 Allergy status to other drugs, medicaments and biological substances; Z79.82 Long term (current) use of aspirin; Z79.51 Long term (current) use of inhaled steroids; Z79.899 Other long term (current) drug therapy

== ENCOUNTER → 2021-01-10 | Outpatient (CLI) | payer MEDICARE, MEDICAID ==
[~2021-01-10] MED LIST changes: -AMIT25TA PO; +AMIT25TA17 PO; -LISI-542 PO; +LISI-898 PO
[2021-01-10 11:11] LABS: BASO % 0.5 % (0.0-1.0); EOS # 0.3 10^3/uL (0.0-0.5); EOS % 3.4 % (0.0-3.0); HEMATOCRIT 40.9 % (36.0-47.0); HEMOGLOBIN 12.4 g/dl (12.0-15.5); LYMPH # 1.2 10^3/uL (1.5-5.0); LYMPH % 13.9 % (24.0-44.0); MEAN CORPUSCULAR HEMOGLOBIN 29.2 pg (27.0-33.0); MEAN CORPUSCULAR HGB CONC 30.3 g/dl (32.0-36.5); MEAN CORPUSCULAR VOLUME 96.2 fl (80.0-96.0); MONO # 0.9 10^3/uL (0.0-0.8); MONO % 10.1 % (2.0-8.0); NEUTROPHILS % 71.6 % (36.0-66.0); PLATELET COUNT, AUTOMATED 234 10^3/uL (150-450); RED BLOOD COUNT 4.25 10^6/uL (4.00-5.40); WHITE BLOOD COUNT 8.4 10^3/uL (4.0-10.0)
[2021-01-10 11:50] LABS: ALBUMIN 3.4 GM/DL (3.2-5.2); ALT/SGPT 23 U/L (12-78); BILIRUBIN,TOTAL 0.4 MG/DL (0.2-1.0); BLOOD UREA NITROGEN 22 MG/DL (7-18); CALCIUM LEVEL 9.3 MG/DL (8.8-10.2); CARBON DIOXIDE LEVEL 31 MEQ/L (21-32); CHLORIDE LEVEL 104 MEQ/L (98-107); CHOLESTEROL LEVEL 163 MG/DL (<200); CHOLESTEROL RISK RATIO 2.202 (<5); CREATININE FOR GFR 0.58 MG/DL (0.55-1.30); FERRITIN 65 NG/ML (8-252); FREE T4 1.45 NG/DL (0.76-1.46); GLOMERULAR FILTRATION RATE > 60.0 (>45); GLUCOSE, FASTING 92 MG/DL (70-100); HDL CHOLESTEROL 74 MG/DL (>40); IRON (FE) 48 UG/DL (50-170); LDL CHOLESTEROL 79 MG/DL (<100); NON-HDL-C 89 MG/DL; PERCENT SATURATION 17.1 % (13.2-45.0); POTASSIUM SERUM 4.3 MEQ/L (3.5-5.1); SODIUM LEVEL 142 MEQ/L (136-145); THYROID STIMULATING HORMONE 0.318 uIU/ML (0.358-3.740); TOTAL IRON BINDING CAPACITY 281 UG/DL (250-450); TOTAL PROTEIN 6.6 GM/DL (6.4-8.2); TRIGLYCERIDES LEVEL 48 MG/DL (<150)
[2021-01-10 11:51] LABS: TOTAL 25(OH) VITAMIN D 71.5 NG/ML (30.0-100.0)
== END ==
LOC: M LAB 10:25
PROVIDERS: ATTEND Physician Assistant
DX: M12.9 Arthropathy, unspecified (principal); E55.9 Vitamin D deficiency, unspecified; E78.5 Hyperlipidemia, unspecified; D50.9 Iron deficiency anemia, unspecified; E03.9 Hypothyroidism, unspecified; Z79.899 Other long term (current) drug therapy

== ENCOUNTER → 2021-01-14 | Outpatient (REF) | payer MEDICARE, MEDICAID ==
[~2021-01-14] MED LIST changes: +ASPI-569 PO; -ASPI81TAEC PO; +GABA-1171 PO; +MECL-136 PO; -MECL12.590 PO; -MYRB50TA; +OSEL75CA2 PO; +PREG150C PO; +ROPI2TAB3 PO; -ROSU10TA6; +ROSU10TA6 PO; +SYNT150T PO; +TIZA2TA PO
[2021-01-14 15:49] LABS: CHLAMYDIA DNA AMPLIFICATION NEGATIVE (NEGATIVE); GC DNA AMPLIFICATION NEGATIVE (NEGATIVE)
== END ==
LOC: M SFHCWAGY 13:08
PROVIDERS: ATTEND Nurse Practitioner Family
DX: Z12.72 Encounter for screening for malignant neoplasm of vagina (principal); N89.8 Other specified noninflammatory disorders of vagina; Z11.3 Encounter for screening for infections with a predominantly sexual mode of transmission; N95.8 Other specified menopausal and perimenopausal disorders
CPT/HCPCS: 81002; 87070; 87661; G0123

== ENCOUNTER 2021-01-19 09:17 | Emergency (ER) | payer MEDICARE, MEDICAID ==
[~2021-01-19] VITALS: Ht 167.6 cm; Wt 77.3 kg
[~2021-01-19 09:17] MED LIST changes: -ASPI-569 PO; +ASPI81TAEC PO; -MECL-136 PO; +MECL12.590 PO; -OSEL75CA2 PO; -PREG150C PO; -ROPI2TAB3 PO; -SYNT150T PO; -TIZA2TA PO
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
--- OUTSIDE RECORDS SUMMARY | 2021-01-19 09:22 | CCD | Continuity of Care Document ---
Author Author Leanna SANCHEZ Organization Unknown Address [address] [place] [address] Phone [phone] Care Team Providers Care Temporary Staff Accountant Name Role Phone Vickie Oro P.A.-C. [facility] [phone] Problems Active Problems Provider Date Dizziness Kate Peralta M.D. Onset: 11/14/2020 Unsteady gait Kate Peralta M.D. Onset: 11/14/2020 Intermittent confusion Kate Peralta M.D. Onset: 11/14/20 20 Obstructive sleep apnea syndrome Kate Peralta M.D. Onset : 11/14/2020 Social History Type Date Description Comments Sex Unknown Tobacco Use Start: Unknown End: Unknown Patient is a former smoker Allergies, Adverse Reactions, Alerts Active Allergies Reaction Severity Comments Date Doxycycline 11/14/2020 Hydroxyzine 11/14/2020 Medications Active Medications SIG Qnty Indications Ordering Provide r Date Ropinirole HCL 2mg Tablets Take 1 tab PO bid. 60tabs Kate Peralta M.D. 01/02/2021 [address]ir[address] Patient takes once a day Kate Peralta M.D. Immunizations Description No Information Available Vital Signs Date Vital Result Comment 12/28/2020 1:08pm Respiratory Rate 12 /min Height 64 inches 5'4" Weight 173.00 lb BMI (Body Mass Index) 29.7 kg/m2 [place] Body Weight 120 lb 11/14/2020 1:45pm Respiratory Rate 12 /min Height 64 inches 5'4" Weight 173.00 lb BMI (Body Mass Index) 29.7 kg/m2 [place] Body Weight 120 lb Results Description No Information Available Procedures Date Code Description Status 12/07/2020 84138 Sympathetic Skin Responses Compl eted 12/07/2020 26175 Sympathetic Skin Responses Compl eted 12/07/2020 45243 Test Autonomic Nervous System, C ardiovagal Innervation Completed 12/07/2020 68098 Test Autonomic Nervous System, C ardiovagal Innervation Completed 11/28/2020 48790 Nerve Conduction 13+ Studies Com pleted 11/28/2020 19218 Needle Electromyography Complete , Five Or More Muscles Studied Completed 11/28/2020 36672 Needle Electromyography Complete , Five Or More Muscles Studied Completed Medical Devices Description No Information Available Encounters Type Date Location Provider Dx Diagnosis Office Visit 12/28/2020 12:15p Main office - [place] anth[place] M.[place]. G62.9 Polyneuropathy, unspecified R42 Dizziness and giddiness Office Visit 11/14/2020 1:00p Main office - [place] M.D. R42 Dizziness and giddiness R26.81 Unsteadiness on feet R41.82 Altered mental status, unspe cified R29.6 Repeated falls Assessments Date Code Description Provider 12/28/2020 G62.9 Polyneuropathy, unspecified Hemal Peralta M.D. 12/28/2020 R42 Dizziness and giddiness Kate mari M.D. 12/07/2020 I95.1 Orthostatic hypotension Kate mari M.D. 12/07/2020 I95.1 Orthostatic hypotension Ans/VS 12/07/2020 G62.9 Polyneuropathy, unspecified Hemal Peralta M.D. 12/07/2020 G62.9 Polyneuropathy, unspecified Ans/ VS 11/28/2020 M79.606 Pain in leg, unspecified Kate meléndez M.D. 11/28/2020 M54.5 Low back pain Kate Peralta M.D. 11/28/2020 R20.2 Paresthesia of skin Kate anthony M.D. 11/28/2020 G60.9 Hereditary and idiopathic neurop athy, unspecified Kate Peralta M.D. 11/28/2020 M79.604 Pain in right leg Kate jimenez M.D. 11/28/2020 M79.605 Pain in left leg Kate Peralta M.D. 11/14/2020 R42 Dizziness and giddiness Kate mari M.D. 11/14/2020 R26.81 Unsteadiness on feet Kate guillen M.D. 11/14/2020 R41.82 Altered mental status, unspecifi ed Kate Peralta M.D. 11/14/2020 R29.6 Repeated falls Kate Peralta M.D. Plan of Treatment No Information Available Functional Status Description No Information Available Mental Status Description No Information Available Referrals Refer to Reason for Referral Status Appt Date Kate Peralta M.D. Created [address] [place] [address] [phone]
--- OUTSIDE RECORDS SUMMARY | 2021-01-19 09:22 | CCD | Continuity of Care Document ---
Author Author Leanna SANCHEZ Organization Unknown Address [address] [place] [address] Phone [phone] Care Team Providers Care Cad Draftsman Name Role Phone Vickie Oro P.A.-C. [facility] [phone] Problems Active Problems Provider Date Dizziness Kate [...] lb BMI (Body Mass Index) 29.7 kg/m2 [place] Body Weight 120 lb 11/14/2020 1:45pm Respiratory Rate 12 /min Height 64 inches 5'4" Weight 173.00 lb BMI (Body Mass Index) 29.7 kg/m2 [place] Body Weight 120 lb Results Description No Information Available Procedures Date Code Description Status 01/03/2021 36187 EEG Recording Awake & Asleep Com pleted 01/03/2021 22196 EEG Recording Awake & Asleep Com pleted 01/03/2021 52429 MRI Brain W/O Contrast Completed 01/03/2021 15513 Magnetic Resonance Angiography N ivonne W/O Contrast Materials Completed 01/03/2021 30626 Magnetic Resonance Angiogtaphy H ead W/O Contrast Material(S) Completed 12/07/2020 89605 Sympathetic Skin Responses Compl eted 12/07/2020 70907 Sympathetic Skin Responses Compl eted 12/07/2020 20637 Test Autonomic Nervous System, C ardiovagal Innervation Completed 12/07/2020 51765 Test Autonomic Nervous System, C ardiovagal Innervation Completed 11/28/2020 31331 Nerve Conduction 13+ Studies Com pleted 11/28/2020 05395 Needle Electromyography Complete , Five Or More Muscles Studied Completed 11/28/2020 65137 Needle Electromyography Complete , Five Or More Muscles Studied Completed Medical Devices Description No Information Available Encounters Type Date Location Provider Dx Diagnosis Office Visit 12/28/2020 12:15p Main office - [place] Kate anthony M.D. G62.9 Polyneuropathy, unspecified R42 Dizziness and giddiness Office Visit 11/14/2020 1:00p Main office - [place] Kate anthony M.D. R42 Dizziness and giddiness R26.81 Unsteadiness on feet R41.82 Altered mental status, unspe cified R29.6 Repeated falls Assessments Date Code Description Provider 01/03/2021 G47.51 Confusional arousals Elida akbar M.D. 01/03/2021 H81.4 Vertigo of central origin MRI 01/03/2021 R26.81 Unsteadiness on feet MRI 01/03/2021 G45.9 Transient cerebral ischemic [place], unspecified MRI 01/03/2021 G47.51 Confusional arousals EEG 12/28/2020 G62.9 Polyneuropathy, unspecified Hemal Peralta M.D. [...] falls Kate Peralta M.D. Plan of Treatment Future Appointment(s):* 04/04/2021 10:45 am - Kate Peralta M.D. at Main office - [place] Functional Status Description No Information Available Mental Status Description No Information Available Referrals Refer to Reason for Referral Status Appt Date Kate Peralta M.D. Created [address] [place] [address] [phone]
--- OUTSIDE RECORDS SUMMARY | 2021-01-19 09:22 | CCD | Continuity of Care Document ---
Author Author Leanna WEINER Organization Unknown Address [address] [place] [address] Phone [phone] Care Team Providers Care Care Trainer Name Role Phone Vickie Oro P.A.-C. [facility] [phone] Problems Active Problems Provider Date Dizziness Kate [...] lb BMI (Body Mass Index) 29.7 kg/m2 [place] Body Weight 120 lb 11/14/2020 1:45pm Respiratory Rate 12 /min Height 64 inches 5'4" Weight 173.00 lb BMI (Body Mass Index) 29.7 kg/m2 [place] Body Weight 120 lb Results Description No Information Available Procedures Date Code Description Status 01/03/2021 65822 EEG Recording Awake & Asleep Com pleted 01/03/2021 86873 EEG Recording Awake & Asleep Com pleted 01/03/2021 62078 MRI Brain W/O Contrast Completed 01/03/2021 49514 MRI Brain W/O Contrast Completed 01/03/2021 19717 Magnetic Resonance Angiography N ivonne W/O Contrast Materials Completed 01/03/2021 06146 Magnetic Resonance Angiography N ivonne W/O Contrast Materials Completed 01/03/2021 05626 Magnetic Resonance Angiogtaphy H ead W/O Contrast Material(S) Completed 01/03/2021 00056 Magnetic Resonance Angiogtaphy H ead W/O Contrast Material(S) Completed 12/07/2020 43516 Sympathetic Skin Responses Compl eted 12/07/2020 22676 Sympathetic Skin Responses Compl eted 12/07/2020 43945 Test Autonomic Nervous System, C ardiovagal Innervation Completed 12/07/2020 68812 Test Autonomic Nervous System, C ardiovagal Innervation Completed 11/28/2020 85751 Nerve Conduction 13+ Studies Com pleted 11/28/2020 12293 Needle Electromyography Complete , Five Or More Muscles Studied Completed 11/28/2020 44251 Needle Electromyography Complete , Five Or More Muscles Studied Completed Medical Devices Description No Information Available Encounters Type Date Location Provider Dx Diagnosis Office Visit 12/28/2020 12:15p Main office - [place] Kate anthony M.D. G62.9 Polyneuropathy, unspecified R42 Dizziness and giddiness Office Visit 11/14/2020 1:00p Main office - [place] Kate anthony M.D. R42 Dizziness and giddiness R26.81 Unsteadiness on feet R41.82 Altered mental status, unspe cified R29.6 Repeated falls Assessments Date Code Description Provider 01/03/2021 H81.4 Vertigo of central origin Sabine Gauthier M.D. 01/03/2021 G47.51 Confusional arousals Elida akbar M.D. 01/03/2021 R26.81 Unsteadiness on feet Sabine Gauthier M.D. 01/03/2021 H81.4 Vertigo of central origin MRI 01/03/2021 G45.9 Transient cerebral ischemic lynne иван, unspecified Sabine Gauthier M.D. 01/03/2021 R26.81 Unsteadiness on feet MRI 01/03/2021 [...] Kate Peralta M.D. at Main office - [place] Functional Status Description No Information Available Mental Status Description No Information Available Referrals Refer to Reason for Referral Status Appt Date Kate Peralta M.D. Created [address] [place] [address] [phone]
--- OUTSIDE RECORDS SUMMARY | 2021-01-19 09:22 | CCD | Continuity of Care Document ---
Author Author Leanna WEINER Organization Unknown Address [address] [place] [address] Phone [phone] Care Team Providers Care Corn Chip Maker Name Role Phone Vickie Oro P.A.-C. [facility] [phone] Problems Active Problems Provider Date Dizziness Kate [...] lb BMI (Body Mass Index) 29.7 kg/m2 [place] Body Weight 120 lb 11/14/2020 1:45pm Respiratory Rate 12 /min Height 64 inches 5'4" Weight 173.00 lb BMI (Body Mass Index) 29.7 kg/m2 [place] Body Weight 120 lb Results Description No Information Available Procedures Date Code Description Status 12/07/2020 08042 Sympathetic Skin Responses Compl eted 12/07/2020 53182 Sympathetic Skin Responses Compl eted 12/07/2020 46504 Test Autonomic Nervous System, C ardiovagal Innervation Completed 12/07/2020 19562 Test Autonomic Nervous System, C ardiovagal Innervation Completed 11/28/2020 41357 Nerve Conduction 13+ Studies Com pleted 11/28/2020 55856 Needle Electromyography Complete , Five Or More Muscles Studied Completed 11/28/2020 58390 Needle Electromyography Complete , Five Or More Muscles Studied Completed Medical Devices Description No Information Available Encounters Type Date Location Provider Dx Diagnosis Office Visit 12/28/2020 12:15p Main office - [place] M.D. G62.9 Polyneuropathy, unspecified R42 Dizziness and giddiness Office Visit 11/14/2020 1:00p Main office - [place] M.D. R42 Dizziness and giddiness R26.81 [...] Date Kate Peralta M.D. Created [address] [place] [address] [phone]
--- OUTSIDE RECORDS SUMMARY | 2021-01-19 09:22 | CCD ---
Author Author [facility] Organization [facility]erg[facility] With [facility] Address Unknown Phone Unavailable Care Team Providers Care Tray Setter Name Role Phone Vika Brumfield Unavailable PROBLEMS Type Condition ICD9-CM Code [id number] Code Onset Dates Condition S tatus W/U Status Risk SNOMED Code Notes Problem Postcoital bleeding N93.0 Active confirmed 93811977 Problem Postmenopausal Z78.0 Active confirmed 72837 008 Problem Idiopathic chronic venous hy pertension of right lower extremity with ulcer I87.311 Active confirmed 076651659 Problem Positive DEE (antinuclear antibody) R76.8 Acti ve confirmed 302322140 Problem Rheumatoid arthritis involvi ng multiple sites with positive rheumatoid factor M05.79 Active confirmed 957245248 Problem PMB (postmenopausal bleeding) N95.0 Active confirm ed 87389864 Problem Acquired absence of both cervix and uterus Z90.710 Active confirmed 514411385 Problem Other urinary incontinence N39.498 Active confirmed 955602567 Problem Atrophic vaginitis N95.2 Active confirmed 5 5690267 Problem Other chronic pain G89.29 Active confirmed 8 2837088 Problem Fibromyalgia M79.7 Active confirmed 2560130 05 Problem Pulmonary emphysema, unspecified emphysema type J4 3.9 Active confirmed 98529624 Problem Mycobacterium 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 Active confirmed 294212044 ALLERGIES Allergen (clinical drug ingredient) Drug/Non Drug Allergy do cumented on EMR Reaction Allergy Type Onset Date Status permethrin Permethrin([facility] Code:[address]-37) Rash Drug Allergy Active hydroxyzine HydrOXYzine HCl([place] Code:[address]-38) Rash Drug A llergy Active doxycycline Doxycycline Hyclate([facility] Code:[address]-09) Rash Dr cuellar Allergy Active ENCOUNTERS from 1955 to 2021-01-15 Encounter Location Date Provider Diagnosis [facility] [address] [place] [id number] Dec, Vika Romeroney IMMUNIZATIONS No Information SOCIAL HISTORY Tobacco Use: Social History Observation Description Date Details (start date - stop date) Former Smoker Sex Assigned At : Social History Observation Description Sex Assigned At Unknown Sexual Hx: Question Answer Notes Had sex in the last 12 months (vaginal, oral, or anal)? No Have you ever had an STD? Yes Chlamydia? Yes Alcohol Screening: Question Answer Notes Did you have a drink containing alcohol in the past year? Ye s Points 2 Interpretation Negative How often did you have six or more drinks on one occas ion in the past year? Never (0 points) How many drinks did you have on a typica l day when you were drinking in the past year? 1 or 2 (0 points) How often did you have a drink containing alcohol in t he past year? Two to four times a month (2 points) BMI Care Goal Follow-Up Question Answer Notes Above Normal BMI Follow-Up Giving encouragement to exercise Tobacco Use: Question Answer Notes Are you a: former smoker Quit six months ago. , former smoker How long has it been since you last smoked? 6-12 months REASON FOR REFERRAL No Information VITAL SIGNS No information MEDICATIONS Medication SIG (Take, Route, Frequency, Duration) Notes Start Da te End Date Status Acetaminophen-Codeine #4 300-60 MG 1 tab(s) p.o. as needed Unknown Aleve 220 MG 1 tablet with food or milk as needed Orally every 12 hrs Unknown Tizanidine HCl 2 MG 1 tablet as needed Orally Three times a day Active Lasix 20 mg 1 tablet Orally Once a day for 30 day(s) Unknown Plavix 75 mg 1 tablet Orally Once a day for 30 day(s) Unknown HydrOXYzine HCl 10 MG TK 1 OR 2 TS PO Q 6 H NEEDED FOR PANIC Ora l for 7 Active Pantoprazole Sodium 40 MG 1 tab(s) Orally Once a day Active Depakote ER 500 mg 1 tab(s) Orally three times a day Unknown Paxil 30 mg 1 tab(s) Orally Once a day for 30 day(s) Unknown Azelastine HCl 0.1 % U 2 SPRAYS IEN BID Nasal for 75 Not-Taking Levothyroxine Sodium 137mcg 1 tablet every morning on an empty stomach Orally Once a day for 30 day(s) Active Acetaminophen-Codeine #3 300-30 MG 1 tablet as needed Orally every 12 hrs as needed for pain for 5 days Oct, Not-T aking Lipitor 40 mg 1 tablet Orally Once a day for 30 day(s) Unknown Ropinirole HCl 1 MG 1 tablet Orally 4 daily Active Sulfasalazine 500 MG 2 tablet Orally bid for 90 days Active Ferrous Sulfate 325 MG Orally daily Not-Taking Breo Ellipta 200-25 MCG/INH INHALE ONE PUFF PO EVERY DAY Inhalation for 30 Not-Taking Vitamin C 500 mg 1 tab(s) Orally once a day Not-Taking Vitamin C 1000 MG 1 tablet Orally Once a day for 30 day(s) Not-Taking Aspirin 325 MG 1 tablet Orally Once a day for 30 day(s) Unknown Multivitamins otc 1 tab(s) Orally once a day Not-Taking Requip 0.5 MG 1 tab(s) Orally once a day for 30 day(s) Not-Taking Estradiol 0.1 MG/GM 1 gm Vaginal Two times a Week for 90 days Dec, Active Tizanidine HCl 2 MG 1 tablet as needed Orally at bedtime for 30 days Oct, Unknown Lyrica 150 MG 1 capsule Orally twice daily for 30 day(s) 2 Oct, Unknown Rosuvastatin Calcium 10 MG TK 1 T PO QD Oral for 90 Unknown Acetaminophen 500 MG 2 tablet as needed Orally every 12 hrs as needed for pain Oct, Unknown Multivitamin Women 50+ - as directed Orally Active Sleep Aid 25 MG 2 tablet at bedtime as needed Orally Once a day Active Furosemide 20 MG 1 tablet Orally Once a day Active Hydrocodone-Acetaminophen 5-325 MG (Schedule II Drug) Oral for 30 Not-Taking Calcium 600 MG 1 tablet with meals Orally Twice a day for 30 day(s) Active Co Q 10 100 MG 1 capsule with a meal Orally Once a day for 30 day(s) Active Myrbetriq 50 MG 1 tablet Orally Once a day for 30 day(s) 0 5 Nov, 2020 Active Divalproex Sodium ER 500 MG TK 1 T PO QD Oral for 90 Not-Taking Abilify 5 MG 1 tab(s) p.o. Once a day for 30 day(s) Unknown Vitamin B12 1000 MCG takes 2500 mcg 1 tablet Orally Once a day Active Meloxicam 7.5 MG 1 tablet Orally twice a day Active Aripiprazole 5 MG TK 1 T PO QD Oral for 90 Not-Taking Levothyroxine Sodium 150 MCG 1 tablet in the morning o n an empty stomach Orally Once a day Not-Taking Levothyroxine Sodium 112 MCG 1 tablet every morning on an empty stomach Orally Once a day Not-Taking Aspirin 81 81 MG 1 tablet Orally Once a day for 30 day(s) Active Lisinopril 2.5 2.5 mg 1 tab(s) oral once a day Not-Taking ProAir HFA 108 (90 Base) MCG/ACT INHALE 2 PUFFS PO QID PRN Inhal ation for 75 Not-Taking Coreg 3.125mg 1 tab(s) oral twice a day Unknown Incruse Ellipta 62.5 MCG/INH INHALE 1 PUFF PO DAILY Inhalation for 30 Active Gabapentin 100 MG 1 capsule Orally Once a day Active Amitriptyline HCl 25 MG 1 tab(s) p.o. Once a day for 30 day(s) Unknown Premarin 0.625 MG/GM 1 gm Vaginal 2xwk for 30 day(s) 2012 Not-Taking PredniSONE 10 MG 2 tablets daily for 3 days, 1 tablet daily for 3 days, 1/2 tab daily for 3 days then stop prn flare Orally Once a day for 30 day(s) March, Not-Taking Vitamin D2 50 MCG (1999 [place]) [address] units1 tablet Orally Once weekly Not-Taking Trazodone HCl 100 MG TK 1 T PO HS Oral for 30 Not-Taking Duloxetine HCl 60 MG TK 1 C PO QD Oral for 90 Not-Taking Pantoprazole Sodium 20 mg 1 tab(s) p.o. Once a day for 30 day(s) Not-Taking Ropinirole HCl 1 MG TK 1 T PO HS Oral for 90 Unknown Carvedilol 6.25 MG TAKE 1 TABLET BY MOUTH TWICE A DAY Oral for 90 Not-Taking Atorvastatin Calcium 40 MG TK 1 T PO D Oral for 30 Not-Taking Ipratropium-Albuterol 0.5-2.5 (3) MG/3ML Inhalation for 5 Not-Taking Clindamycin HCl 300 MG 2 capsules Orally every 8 hrs for 10 day(s) Not-Taking Myrbetriq 50 MG TK 1 T PO EVERY DAY Oral for 30 Unknown PROCEDURES No Information RESULTS No Results REASON FOR VISIT No Information MEDICAL (GENERAL) HISTORY Type Description Date Medical History RA Medical History hypothyroidism Medical History RLS Medical History depression Medical History AMI, 02/2011 Medical History HTN Medical History CAD Medical History high cholesterol Medical History GERD Medical History postmenopause Medical History lymph nodes abdomen and lung Medical History pneumonia- recent diagnosis of double pn [place] Surgical History [place] hip replacements Surgical History right shoulder replacement Surgical History hysterectomy, 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 Surgical History cardiac stent x 1 02/2011 Surgical History colonoscopy 2012 Surgical History tonsillectomy Surgical History left knee replacement 10/04/2018 Hospitalization History surgery related Hospitalization History cardiac related Hospitalization History R leg wound with celulitis Hospitalization History [facility] [place] 06/10-07/11 Goals Section No Information Health Concerns No Information MEDICAL EQUIPMENT No Information MENTAL STATUS No Information FUNCTIONAL STATUS No Information ASSESSMENTS No Information PLAN OF TREATMENT Medication Medication Name Sig Start Date Stop Date Estradiol 0.1 MG/GM 1 gm Vaginal Two times a Week for 90 days Dec, Next Appt Details Provider Name:Davie Peterson, 2021-02-13 02:45:00 PM, [address] [place], [address], Insurance Providers Payer Name Payer Address Payer Phone Insured Name Patient Relati onship to Insured Coverage Start Date Coverage End Date MEDICARE Part A and B [address] [facility] [phone] [facility] [address] [place] [id number] [facility]
--- OUTSIDE RECORDS SUMMARY | 2021-01-19 09:22 | CCD ---
Author Author [facility] Organization [facility] Address Unknown Phone Unavailable Care Team Providers Care Certified Medical Biller Name Role Phone panfiloOumou Castillo Unavailable PROBLEMS Type Condition ICD9-CM Code [id number] Code Onset Dates Condition S tatus W/U Status Risk SNOMED Code Notes Problem Postcoital bleeding N93.0 Active confirmed 01607470 Problem Postmenopausal Z78.0 Active confirmed 53350 008 Problem Idiopathic chronic venous hy pertension of right lower extremity with ulcer I87.311 Active confirmed 795275247 Problem Positive DEE (antinuclear antibody) R76.8 Acti ve confirmed 899449111 Problem Rheumatoid arthritis involvi ng multiple sites with positive rheumatoid factor M05.79 Active confirmed 382039962 Problem PMB (postmenopausal bleeding) N95.0 Active confirm ed 40596911 Problem Acquired absence of both cervix and uterus Z90.710 Active confirmed 124062209 Problem Other urinary incontinence N39.498 Active confirmed 144735087 Problem Atrophic vaginitis N95.2 Active confirmed 5 2404711 Problem Other chronic pain G89.29 Active confirmed 8 9067957 Problem Fibromyalgia M79.7 Active confirmed 2840022 05 Problem Pulmonary emphysema, unspecified emphysema type J4 3.9 Active confirmed 06523632 Problem Mycobacterium 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 Active confirmed 522209559 ALLERGIES Allergen (clinical drug ingredient) Drug/Non Drug Allergy do cumented on EMR Reaction Allergy Type Onset Date Status permethrin Permethrin(NDC Code:[address]-11) Rash Drug Allergy Active hydroxyzine HydrOXYzine HCl(ND Code:[address]-23) Rash Drug A llergy Active doxycycline Doxycycline Hyclate([facility] Code:[address]-58) Rash Dr alisa Allergy Active ENCOUNTERS from 1955 to 2021-01-15 Encounter Location Date Provider Diagnosis [facility] Anil [facility] [place] [address] March, Oumou Randall Rheumatoid arthritis involving multiple sites with positive rheumatoid factor M05.79 ; Positive DEE (antinuclear antibody) R76.8 ; Pulmonary nodules/lesions, multiple R91.8 and Elevated brain natriuretic peptide (BNP) level R79.89 IMMUNIZATIONS No Information SOCIAL HISTORY Tobacco Use: [...] REASON FOR REFERRAL No Information VITAL SIGNS Weight 178.0 lbs March, Weight-kg 80.7 kg March, Height 64 in March, BMI 30.55 kg/m2 March, Heart Rate 91 /min March, Respiratory Rate 20 /min March, Temperature 97.9 degrees Fahrenheit March, Oximetry 90% March, Blood pressure systolic 112 mm Hg March, Blood pressure diastolic 62 mm Hg March, MEDICATIONS Medication SIG (Take, Route, Frequency, Duration) [...] Orally twice daily for 30 day(s) 2 1 Oct, 2020 Unknown Rosuvastatin Calcium 10 MG TK 1 [...] Once a day for 30 day(s) 0 Nov, Active Divalproex Sodium ER 500 MG TK [...] Not-Taking Vitamin D2 50 MCG (1999 [place]) [address] units1 tablet Orally Once weekly Not-Taking Trazodone [...] for 30 Unknown PROCEDURES No Information RESULTS REASON FOR VISIT rheumatoid arthritis management MEDICAL (GENERAL) HISTORY Type Description Date Medical [...] R leg wound with celulitis Hospitalization History [facility] 06/10-07/11 Goals Section No Information Health Concerns No Information MEDICAL EQUIPMENT No Information MENTAL STATUS No Information FUNCTIONAL STATUS No Information ASSESSMENTS Encounter Date Diagnosis Assessment Notes Treatment Notes Treatm ent Clinical Notes March, Rheumatoid arthritis involvi ng multiple sites with positive rheumatoid factor (ICD-10 - M05.79) Patient has high titers of CCP antibodies and rheumatoid factor; however, patient is not sure about her diagnosis and never been seen by continuity director in the past. With send complete workup for inflammatory arthritis Screening for hepatitis B and C Get Records from cardiology, last echocardiogram X-ray of both hands, cervical spine She had replacement surgery of both hips, knees and right shoulder many years ag o. addendum 3:26pm: Dr. Joy called me to discuss case. Patient hasn't had any interstitial lung disease at this moment. Pulmonary function test is more suggestive of obstructive than restrictive pattern from emphysema. No evidence of fibrosis on CT scan. She had groundglass opacity in previous imaging, which has resolved in the most recent one. However, she wouldn't recommend methotrexate due to underlying lung conditions. March, Positive DEE (antinuclear antibody) (ICD-10 - R7 6.8) Patient has positive DEE, but she does not have any features of connective tissue disease on exam. She will referred from manager retirement for evaluation of interstitial lung disease from autoimmune disorder. With complete serology for lupus workup, check serology for connective tissue disease March, Pulmonary nodules/lesions, multiple (ICD-10 - R9 1.8) Patient has pulmonary nodules with severe emphysema. Pulmonology is wondering if there are any interstitial lung disease component given her history of untreated rheumatoid arthritis for many years. However, patient seems to be on methotrexate at some point, but the history is unclear. I will send autoimmune workup for pulmonary lesions Rule out TB We discuss case with Dr. Joy March, Elevated brain natriuretic peptide (BNP) level ( ICD-10 - R79.89) Patient has history of coronary artery disease status post stent; As per Dr. Padilla clinic note on 09/2018: echocardiogram in 2010 with LV EF 45- 50 percent, repeated echocardiogram on December 2016: LVEF 50-55 percent, apical DEE, no valvular disease, normal CBC, BMP AP Coronary artery disease and left ventricular dysfunction are compensated. Patient denies any edema, and her shortness of breath seems to be related to her lung disease. Patient needs to follow-up with cardiology Dr. Padilla for evaluation and clearance to start TNF alpha inhibitor in the future for rheumatoid arthritis management given her history of coronary artery disease with left ventricular dysfunction. Needs new echocardiogram to assess heart function. March, Other I reviewed her symptoms, imaging findings, laboratory results, physical findings, and treatment to date. I have answered patient's questions, and she stated satisfaction regarding the treatment plan and recommendations. PLAN OF TREATMENT Medication Medication Name Sig Start Date Stop Date Estradiol 0.1 MG/GM 1 gm Vaginal Two times a Week for 90 days Dec, Treatment Notes Assessment Notes Clinical Notes Rheumatoid arthritis involving multiple sites with positive rheumatoid factor Patient has high titers of CCP antibodies and rheumatoid factor; however, patient is not sure about her diagnosis and never been seen by continuity director in the past.With send complete workup for inflammatory arthritisScreening for hepatitis B and CGet Records from cardiology, last echocardiogramX-ray of both hands, cervical spineShe had replacement surgery of both hips, knees and right shoulder many years ago.addendum 3:26pm: Dr. Joy called me to discuss case. Patient hasn't had any interstitial lung disease at this moment. Pulmonary function test is more suggestive of obstructive than restrictive pattern from emphysema. No evidence of fibrosis on CT scan. She had groundglass opacity in previous imaging, which has resolved in the most recent one. However, she wouldn't recommend methotrexate due to underlying lung conditions. Positive DEE (antinuclear antibody) Cortney ent has positive DEE, but she does not have any features of connective tissue disease on exam.She will referred from manager retirement for evaluation of interstitial lung disease from autoimmune diso rder.With complete serology for lupus workup, check serology for connective tissue disease Pulmonary nodules/lesions, multiple Cortney ent has pulmonary nodules with severe emphysema. Pulmonology is wondering if there are any interstitial lung disease component given her history of untreated rheumatoid arthritis for many years. However, patient seems to be on methotrexate at some point, but the history is unclear.I will send autoimmune workup for pulmonary lesionsRule out TBWe discuss case with Dr. Joy Elevated brain natriuretic peptide (BNP) level Patient has history of coronary artery disease status post stent;As per Dr. Padilla clinic note on 09/2018: echocardiogram in 2010 with LV EF 45-50 percent, repeated echocardiogram on December 2016: LVEF 50-55 percent, apical DEE, no valvular disease, normal CBC, BMP APCoronary artery disease and left ventricular dysfunction are compensated.Patient denies any edema, and her shortness of breath seems to be related to her lung disease.Patient needs to follow-up with cardiology Dr. Padilla for evaluation and clearance to start TNF alpha inhibitor in the future for rheumatoid arthritis management given her history of coronary artery disease with left ventricular dysfunction. Needs new echocardiogram to assess heart function. Treatment Notes Test Name Order Date ANCA Panel with MPO & PR3 2019-03-30 [place] Antibody (NOT ORDERABLE) 2019-03-30 Future Test Test Name Order Date [facility] HAND COMPLETE [id number] SMT SPINE CERVICAL W/AP/FLEX/EXT [id number] Next Appt Details labs today, get cardiology records, echo report, CT chest report, RTC in 1-2 weeks Reason:followup testing for arthritis Provider Name:Davie Peterson, 2021-02-13 02:45:00 PM, [address] [place], [address], Follow Up:labs today, get cardiology records, echo report, CT chest report, RTC in 1-2 weeksfollowup testing for arthritis Insurance Providers Payer Name Payer Address Payer Phone Insured Name Patient Relati onship to Insured Coverage Start Date Coverage End Date MEDICARE Part A and B [address] [facility] [address] [phone] [facility] [address] [facility] [address] TEDDY GOODWIN self
--- OUTSIDE RECORDS SUMMARY | 2021-01-19 09:23 | CCD | Continuity of Care Document ---
Author Author Leanna SALDIVAR M.D. Organization Unknown Address [address] [place] [address] Phone [phone] Care Team Providers Care Technology Coach Name Role Phone Vickie Oro P.A.-C. AUTM [phone] Problems Active Problems Provider Date Dizziness Kate Saldivar M.D. Onset: 11/14/2020 Unsteady gait Kate Saldivar M.D. Onset: 11/14/2020 Intermittent confusion Kate Saldivar M.D. Onset: 11/14/20 20 Obstructive sleep apnea syndrome Kate Saldivar M.D. Onset : 11/14/2020 Social History Type Date Description Comments Sex Unknown Tobacco Use Start: Unknown End: Unknown Patient is a former smoker Allergies, Adverse Reactions, Alerts Active Allergies Reaction Severity Comments Date Doxycycline 11/14/2020 Hydroxyzine 11/14/2020 Medications Active Medications SIG Qnty Indications Ordering Provide r Date Aspirin [address] Patient takes once a day Kate Saldivar M.D. Immunizations Description No Information Available Vital Signs Date Vital Result Comment 12/28/2020 1:08pm Respiratory Rate 12 /min Height 64 inches 5'4" Weight 173.00 lb BMI (Body Mass Index) 29.7 kg/m2 [place] Body Weight 120 lb 11/14/2020 1:45pm Respiratory Rate 12 /min Height 64 inches 5'4" Weight 173.00 lb BMI (Body Mass Index) 29.7 kg/m2 [place] Body Weight 120 lb Results Description No Information Available Procedures Date Code Description Status 12/07/2020 85610 Sympathetic Skin Responses Compl eted 12/07/2020 42969 Sympathetic Skin Responses Compl eted 12/07/2020 97849 Test Autonomic Nervous System, C ardiovagal Innervation Completed 12/07/2020 69086 Test Autonomic Nervous System, C ardiovagal Innervation Completed 11/28/2020 24104 Nerve Conduction 13+ Studies Com pleted 11/28/2020 25559 Needle Electromyography Complete , Five Or More Muscles Studied Completed 11/28/2020 34613 Needle Electromyography Complete , Five Or More Muscles Studied Completed Medical Devices Description No Information Available Encounters Type Date Location Provider Dx Diagnosis Office Visit 12/28/2020 12:15p [place] anth[place] M.D. G62.9 Polyneuropathy, unspecified R42 Dizziness and giddiness Office Visit 11/14/2020 1:00p Main office - [place] anth[place] M.D. R42 Dizziness and giddiness R26.81 Unsteadiness on feet R41.82 Altered mental status, unspe cified R29.6 Repeated falls Assessments Date Code Description Provider 12/28/2020 G62.9 Polyneuropathy, unspecified Hemal Saldivar M.D. 12/28/2020 R42 Dizziness and giddiness Kate mari M.D. 12/07/2020 I95.1 Orthostatic hypotension Kate mari M.D. 12/07/2020 I95.1 Orthostatic hypotension Ans/VS 12/07/2020 G62.9 Polyneuropathy, unspecified Hemal Saldivar M.D. 12/07/2020 G62.9 Polyneuropathy, unspecified Ans/ VS 11/28/2020 M79.606 Pain in leg, unspecified Kate meléndez M.D. 11/28/2020 M54.5 Low back pain Kate Saldivar M.D. 11/28/2020 R20.2 Paresthesia of skin Kate anthony M.D. 11/28/2020 G60.9 Hereditary and idiopathic neurop athy, unspecified Kate Saldivar M.D. 11/28/2020 M79.604 Pain in right leg Kate jimenez M.D. 11/28/2020 M79.605 Pain in left leg Kate Saldivar M.D. 11/14/2020 R42 Dizziness and giddiness Kate mari M.D. 11/14/2020 R26.81 Unsteadiness on feet Kate guillen M.D. 11/14/2020 R41.82 Altered mental status, unspecifi ed Kate Saldivar M.D. 11/14/2020 R29.6 Repeated falls Kate Saldivar M.D. Plan of Treatment Future Appointment(s):* 01/03/2021 11:30 am - MRI at [facility] * 01/03/2021 12:45 pm - EEG at [facility] Functional Status Description No Information Available Mental Status Description No Information Available Referrals Refer to Dr Reason for Referral Status Appt Date Kate Saldivar M.D. Created [address] [place] [address] [phone]
--- OUTSIDE RECORDS SUMMARY | 2021-01-19 09:23 | CCD | Continuity of Care Document ---
Author Author Nasir/Leanna MCDANIEL Organization Unknown Address [address] [place] [address] Phone [phone] Care Team Providers Care Valve Maker Name Role Phone Vickie Oro P.A.-C. AUTM [phone] Problems Active Problems Provider Date Dizziness Kate [...] Available Vital Signs Date Vital Result Comment 11/14/2020 1:45pm Respiratory Rate 12 /min Height 64 inches 5'4" Weight 173.00 lb BMI (Body Mass Index) 29.7 kg/m2 [place] Body Weight 120 lb Results Description No Information Available Procedures Date Code Description Status 11/28/2020 24278 Nerve Conduction 13+ Studies Com pleted 11/28/2020 91286 Needle Electromyography Complete , Five Or More Muscles Studied Completed 11/28/2020 63542 Needle Electromyography Complete , Five Or More Muscles Studied Completed Medical Devices Description No Information Available Encounters Type Date Location Provider Dx Diagnosis Office Visit 11/14/2020 1:00p [facility] office - [place] Kate anthony M.D. R42 Dizziness and giddiness R26.81 Unsteadiness on feet R41.82 Altered mental status, unspe cified R29.6 Repeated falls Assessments Date Code Description Provider 11/28/2020 M79.606 Pain in leg, unspecified Kate [...] Peralta M.D. Plan of Treatment Future Appointment(s):* 12/28/2020 12:15 pm - Kate Peralta M.D. at [facility] * 01/03/2021 12:45 pm - EEG at [facility] Functional Status Description No Information Available Mental Status Description No Information Available Referrals Refer to Dr Reason for Referral Status Appt Date Kate Peralta M.D. Created [address] [place] [address] [phone]
--- OUTSIDE RECORDS SUMMARY | 2021-01-19 09:23 | CCD | Continuity of Care Document ---
Author Author Leanna SALDIVAR M.D. Organization Unknown Address [address] [place] [address] Phone [phone] Care Team Providers Care Family Court Counsellor Name Role Phone Vickie Oro P.A.-C. AUTM [phone] Problems Active Problems Provider Date Dizziness Kate [...] lb BMI (Body Mass Index) 29.7 kg/m2 [place] Body Weight 120 lb 11/14/2020 1:45pm Respiratory Rate 12 /min Height 64 inches 5'4" Weight 173.00 lb BMI (Body Mass Index) 29.7 kg/m2 [place] Body Weight 120 lb Results Description No Information Available Procedures Date Code Description Status 12/07/2020 58455 Sympathetic Skin Responses Compl eted 12/07/2020 99455 Sympathetic Skin Responses Compl eted 12/07/2020 50323 Test Autonomic Nervous System, C ardiovagal Innervation Completed 12/07/2020 39208 Test Autonomic Nervous System, C ardiovagal Innervation Completed 11/28/2020 28569 Nerve Conduction 13+ Studies Com pleted 11/28/2020 16678 Needle Electromyography Complete , Five Or More Muscles Studied Completed 11/28/2020 93327 Needle Electromyography Complete , Five Or More Muscles Studied Completed Medical Devices Description No Information Available Encounters Type Date Location Provider Dx Diagnosis Office Visit 11/14/2020 1:00p Main office - [place] Kate anthony M.D. R42 Dizziness and giddiness [...] Appointment(s):* 01/03/2021 11:30 am - MRI at Main [facility] [place] * 01/03/2021 12:45 pm - EEG at [facility] Functional Status Description No Information Available Mental Status Description No Information Available Referrals Refer to Reason for Referral Status Appt Date Kate Saldivar M.D. Created [address] [place] [address] [phone]
--- OUTSIDE RECORDS SUMMARY | 2021-01-19 09:23 | CCD ---
Author Author Formerly [facility] [employer] Organization [facility] [employer] Address Unknown Phone Unavailable Care Team Providers Care Cinder Snapper Name Role Phone Davie Peterson Unavailable PROBLEMS Type Condition ICD9-CM Code AIB71-LO Code Onset Dates Condition S tatus SNOMED Code Notes Problem Acquired absence of both cervix and uterus Z90.710 Active 681814280 Problem Atrophic vaginitis N95.2 Active 12511785 Problem Idiopathic chronic venous hy pertension of right lower extremity with ulcer I87.311 Active 417879070 Problem Pulmonary emphysema, unspecified emphysema type J4 3.9 Active 99288632 Problem Postcoital bleeding N93.0 Active 69558971 Problem Mycobacterium 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 Active 3716 70699 Problem Postmenopausal Z78.0 Active 90901135 Problem Rheumatoid arthritis involvi ng multiple sites with positive rheumatoid factor M05.79 Active 831482735 Problem Positive DEE (antinuclear antibody) R76.8 Acti ve 083887706 Problem Other chronic pain G89.29 Active 27630589 Problem Fibromyalgia M79.7 Active 870582829 ALLERGIES Allergen (clinical drug ingredient) Drug/Non Drug Allergy do cumented on EMR Reaction Allergy Type Onset Date Status permethrin Permethrin(NDC Code:[address]-52) Rash Drug Allergy Active hydroxyzine HydrOXYzine HCl(NDC Code:[address]-85) Rash Drug A llergy Active doxycycline Doxycycline Hyclate(NDC Code:[address]-34) Rash Dr alisa Allergy Active ENCOUNTERS from 1955 to 2020-11-29 Encounter Location Date Provider Diagnosis [facility] [address] [place] [address] Nov, Davie Peterson Fibromyalgia M79.7 IMMUNIZATIONS No Information SOCIAL HISTORY Tobacco Use: [...] FOR REFERRAL No Information VITAL SIGNS Weight 172.8 lbs Nov, Height 64 in Nov, BMI 29.66 kg/m2 Nov, Heart Rate 95 /min Nov, Respiratory Rate 18 /min Nov, Temperature 98.3 degrees Fahrenheit Nov, Oximetry 92% Nov, Blood pressure systolic 132 mm Hg Nov, Blood pressure diastolic 71 mm Hg Nov, MEDICATIONS Medication SIG (Take, Route, Frequency, Duration) Notes Start Da te End Date Status Myrbetriq 50 MG 1 tablet Orally Once a day for 30 day(s) 0 5 Nov, 2020 Active Aripiprazole 5 MG TK 1 T PO QD Oral for 90 Unknown Ipratropium-Albuterol 0.5-2.5 (3) MG/3ML Inhalation for 5 Unknown Depakote ER 500 mg 1 tab(s) Orally three times a day Not-Taking HydrOXYzine HCl 10 MG TK 1 OR 2 TS PO Q 6 H NEEDED FOR PANIC Ora l for 7 Unknown Atorvastatin Calcium 40 MG TK 1 T PO D Oral for 30 Unknown Meloxicam 7.5 MG 1 tablet Orally twice a day Active Aspirin 325 MG 1 tablet Orally Once a day for 30 day(s) Not-Taking Azelastine HCl 0.1 % U 2 SPRAYS IEN BID Nasal for 75 Unknown Duloxetine HCl 60 MG TK 1 C PO QD Oral for 90 Unknown Aspirin 81 81 MG 1 tablet Orally Once a day for 30 day(s) Active Multivitamin Women 50+ - as directed Orally Active Levothyroxine Sodium 112 MCG 1 tablet every morning on an empty stomach Orally Once a day Unknown Incruse Ellipta 62.5 MCG/INH INHALE 1 PUFF PO DAILY Inhalation for 30 Active Clindamycin HCl 300 MG 2 capsules Orally every 8 hrs for 10 day(s) Unknown Vitamin C 1000 MG 1 tablet Orally Once a day for 30 day(s) Active Acetaminophen-Codeine #4 300-60 MG 1 tab(s) p.o. as needed Not-Taking Lisinopril 2.5 2.5 mg 1 tab(s) oral once a day Active Abilify 5 MG 1 tab(s) p.o. Once a day for 30 day(s) Not-Taking Divalproex Sodium ER 500 MG TK 1 T PO QD Oral for 90 Unknown Vitamin C 500 mg 1 tab(s) Orally once a day Active Levothyroxine Sodium 137mcg 1 tablet every morning on an empty stomach Orally Once a day for 30 day(s) Active Premarin 0.625 MG/GM 1 gm Vaginal 2xwk for 30 day(s) 18 2012 Active Tizanidine HCl 2 MG 1 tablet as needed Orally at bedtime for 30 days Oct, Unknown ProAir HFA 108 (90 Base) MCG/ACT INHALE 2 PUFFS PO QID PRN Inhal ation for 75 Active Sleep Aid 25 MG 2 tablet at bedtime as needed Orally Once a day Active Aleve 220 MG 1 tablet with food or milk as needed Orally every 12 hrs Not-Taking Trazodone HCl 100 MG TK 1 T PO HS Oral for 30 Unknown Acetaminophen 500 MG 2 tablet as needed Orally every 12 hrs as needed for pain Oct, Active Pantoprazole Sodium 20 mg 1 tab(s) p.o. Once a day for 30 day(s) Unknown Ropinirole HCl 1 MG 1 tablet Orally 4 daily Active Lasix 20 mg 1 tablet Orally Once a day for 30 day(s) Not-Taking Acetaminophen-Codeine #3 300-30 MG 1 tablet as needed Orally every 12 hrs as needed for pain for 5 days Oct, Unkno wn Ferrous Sulfate 325 MG Orally daily Unknown Sulfasalazine 500 MG 2 tablet Orally bid for 90 days Active Co Q 10 100 MG 1 capsule with a meal Orally Once a day for 30 day(s) Active Rosuvastatin Calcium 10 MG TK 1 T PO QD Oral for 90 Active Breo Ellipta 200-25 MCG/INH INHALE ONE PUFF PO EVERY DAY Inhalation for 30 Active Lyrica 150 MG 1 capsule Orally twice daily for 30 day(s) 2 Oct, Active Vitamin B12 1000 MCG takes 2500 mcg 1 tablet Orally Once a day Active Carvedilol 6.25 MG TAKE 1 TABLET BY MOUTH TWICE A DAY Oral for 90 Unknown Requip 0.5 MG 1 tab(s) Orally once a day for 30 day(s) Active Amitriptyline HCl 25 MG 1 tab(s) p.o. Once a day for 30 day(s) Not-Taking Coreg 3.125mg 1 tab(s) oral twice a day Not-Taking Hydrocodone-Acetaminophen 5-325 MG (Schedule II Drug) Oral for 30 Unknown Levothyroxine Sodium 150 MCG 1 tablet in the morning o n an empty stomach Orally Once a day Unknown PredniSONE 10 MG 2 tablets daily for 3 days, 1 tablet daily for 3 days, 1/2 tab daily for 3 days then stop prn flare Orally Once a day for 30 day(s) March, Active Lipitor 40 mg 1 tablet Orally Once a day for 30 day(s) Not-Taking Multivitamins otc 1 tab(s) Orally once a day Active Pantoprazole Sodium 40 MG 1 tab(s) Orally Once a day Active Vitamin D2 50 MCG (1999 [place]) [address] units1 tablet Orally Once weekly Active Ropinirole HCl 1 MG TK 1 T PO HS Oral for 90 Unknown Calcium 600 MG 1 tablet with meals Orally Twice a day for 30 day(s) Active Plavix 75 mg 1 tablet Orally Once a day for 30 day(s) Not-Taking Myrbetriq 50 MG TK 1 T PO EVERY DAY Oral for 30 Unknown Paxil 30 mg 1 tab(s) Orally Once a day for 30 day(s) Not-Taking PROCEDURES No Information RESULTS No Results REASON FOR VISIT new medication MEDICAL (GENERAL) HISTORY Type Description Date Medical [...] R leg wound with celulitis Hospitalization History [facility]11 Goals Section No Information Health Concerns No Information MEDICAL EQUIPMENT No Information MENTAL STATUS No Information FUNCTIONAL STATUS No Information ASSESSMENTS Encounter Date Diagnosis Assessment Notes Treatment Notes Treatm ent Clinical Notes Nov, Fibromyalgia (ICD-10 - M79.7) 65-year-old female for chronic pain follow-up. Given presenting symptoms recommend increasing Lyrica with follow-up in 2 months. Referral for medical marijuana to be placed. Patient has expressed a presenting of and was in agreement with treatment plan. Given time to ask questions and express concerns. , ISTOP registry reviewed and demonstrates complliance. (Ref # [id number] ) PLAN OF TREATMENT Medication Medication Name Sig Start Date Stop Date Lyrica 150 MG 1 capsule Orally twice daily for 30 day(s) 2019 Treatment Notes Assessment Notes Clinical Notes Fibromyalgia 65-year-old female for chron ic pain follow-up. Given presenting symptoms recommend increasing Lyrica with follow-up in 2 months. Referral for medical marijuana to be placed. Patient has expressed a presenting of and was in agreement with treatment plan. Given time to ask questions and express concerns., ISTOP registry reviewed and demonstrates complliance. (Ref # [id number] ) Next Appt Details 2 Months Reason:fibromyalgia Provider Name:Davie Peterson, 2021-01-25 01:30:00 PM, [address] [place], [address], Follow Up:2 Monthsfibromyalgia Insurance Providers Payer Name Payer Address Payer Phone Insured Name Patient Relati onship to Insured Coverage Start Date Coverage End Date [facility] [address] [facility] [address] TEDDY GOODWIN self MEDICARE Part A and B [address] [facility] [address] [phone] GOODWIN,TEDDY DUCKWORTH self
--- OUTSIDE RECORDS SUMMARY | 2021-01-19 09:23 | CCD ---
Author Author [facility] [employer] Organization [facility] [employer] Address Unknown Phone Unavailable Care Team Providers Care Elementary Assistant Principal Name Role Phone Davie Peterson Unavailable PROBLEMS Type Condition ICD9-CM Code MNI72-WM Code Onset Dates Condition S tatus SNOMED Code Notes Problem Acquired absence of both cervix and uterus Z90.710 Active 655000055 Problem Atrophic vaginitis N95.2 Active 41173596 Problem Idiopathic chronic venous hy pertension of right lower extremity with ulcer I87.311 Active 054698151 Problem Pulmonary emphysema, unspecified emphysema type J4 3.9 Active 20151405 Problem Postcoital bleeding N93.0 Active 93746547 Problem Mycobacterium 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 Active 3716 53760 Problem Postmenopausal Z78.0 Active 27562531 Problem Rheumatoid arthritis involvi ng multiple sites with positive rheumatoid factor M05.79 Active 278313180 Problem Positive DEE (antinuclear antibody) R76.8 Acti ve 093662436 Problem Other chronic pain G89.29 Active 02296594 Problem Fibromyalgia M79.7 Active 370448451 ALLERGIES Allergen (clinical drug ingredient) Drug/Non Drug Allergy do cumented on EMR Reaction Allergy Type Onset Date Status permethrin Permethrin(NDC Code:[address]-86) Rash Drug Allergy Active hydroxyzine HydrOXYzine HCl(NDC Code:[address]-84) Rash Drug A llergy Active doxycycline Doxycycline Hyclate(NDC Code:[address]-70) Rash Dr alisa Allergy Active ENCOUNTERS from 1955 to 2020-12-03 Encounter Location Date Provider Diagnosis [facility] [address] [place] [address] 11 Nov, 2020 Davie Nicholas IMMUNIZATIONS No Information SOCIAL HISTORY Tobacco Use: [...] gm Vaginal 2xwk for 30 day(s) 2012 Active Tizanidine HCl 2 MG 1 [...] a day Active Vitamin D2 50 MCG (2000 UT) 76780 units1 tablet Orally Once weekly Active Ropinirole [...] Information RESULTS No Results REASON FOR VISIT Palliative Care MEDICAL (GENERAL) HISTORY Type Description Date Medical [...] R leg wound with celulitis Hospitalization History [facility] [place] [facility] 06/10-07/11 Goals Section No Information Health Concerns No Information MEDICAL EQUIPMENT No Information MENTAL STATUS No Information FUNCTIONAL STATUS No Information ASSESSMENTS No Information PLAN OF TREATMENT Medication Medication Name Sig Start Date Stop Date Lyrica 150 MG 1 capsule Orally twice daily for 30 day(s) 2019 Next Appt Details Provider Name:Davie Dillon Nicholas, 2021-01-25 01:30:00 PM, [address] [place], [address], Insurance Providers Payer Name Payer Address Payer Phone Insured Name Patient Relati onship to Insured Coverage Start Date Coverage End Date MEDICARE Part A and B [address] [facility] [address] [phone] TEDDY GOODWIN [facility] [address] [facility] [address] TEDDY GOODWIN
--- OUTSIDE RECORDS SUMMARY | 2021-01-19 09:23 | CCD ---
Continuity of Care Document (CCD) Created on: 12/07/2020 Leanna Bob External Reference #: [id number] : 1955 Sex: Female Author Author Leanan SALDIVAR M.D. Organization Unknown Address [address] [place] [address] Phone [phone] Care Team Providers Care Junior Systems Analyst Name Role Phone Vickie Oro P.A.-C. AUTM [phone] Problems Active Problems Provider Date Dizziness Kate [...] lb BMI (Body Mass Index) 29.7 kg/m2 [place] Body Weight 120 lb Results Description No Information Available Procedures Date Code Description Status 11/28/2020 94997 Nerve Conduction 13+ Studies Com pleted 11/28/2020 59607 Needle Electromyography Complete , Five Or More Muscles Studied Completed 11/28/2020 61256 Needle Electromyography Complete , Five Or More Muscles Studied Completed Medical Devices Description No Information Available Encounters Type Date Location Provider Dx Diagnosis Office Visit 11/14/2020 1:00p [facility] Kate anthony M.D. R42 Dizziness and giddiness [...] Saldivar M.D. Plan of Treatment Future Appointment(s):* 12/28/2020 12:15 pm - Kate Saldivar M.D. at [facility] * 01/03/2021 12:45 pm - EEG at [facility] Functional Status Description No Information Available Mental Status Description No Information Available Referrals Refer to Dr Reason for Referral Status Appt Date Kate Saldivar M.D. Created [address] [place] [address] [phone]
--- OUTSIDE RECORDS SUMMARY | 2021-01-19 09:23 | CCD | Continuity of Care Document ---
Author Author Leanna SALDIVAR M.D. Organization Unknown Address [address] [place] [address] Phone [phone] Care Team Providers Care Chemist Intern Name Role Phone Vicike Oro P.A.-C. AUTM [phone] Problems Active Problems Provider Date Dizziness Kate [...] lb BMI (Body Mass Index) 29.7 kg/m2 [place] Body Weight 120 lb Results Description No Information Available Procedures Description No Information Available Medical Devices Description No Information Available Encounters Type Date Location Provider Dx Diagnosis Office Visit 11/14/2020 1:00p Main office - [place] Kate anthony M.D. R42 Dizziness and giddiness R26.81 Unsteadiness on feet R41.82 Altered mental status, unspe cified R29.6 Repeated falls Assessments Date Code Description Provider 11/14/2020 R42 Dizziness and giddiness Kate mari M.D. 11/14/2020 R26.81 Unsteadiness on feet Kate guillen M.D. 11/14/2020 R41.82 Altered mental status, unspecifi ed Kate Saldivar M.D. 11/14/2020 R29.6 Repeated falls Kate Saldivar M.D. Plan of Treatment Future Appointment(s):* 12/28/2020 12:15 pm - Kate Saldivar M.D. at [facility] * 01/03/2021 12:45 pm - EEG at [facility] * 12/07/2020 2:15 pm - Ans/VS at [facility] office [facility] Functional Status Description No Information Available Mental Status Description No Information Available Referrals Refer to Dr Reason for Referral Status Appt Date Kate Saldivar M.D. Created [address] [place] [address] [phone]
--- OUTSIDE RECORDS SUMMARY | 2021-01-19 09:23 | CCD ---
Author Organization Unknown Address [address] [place] [address] Phone [phone] Care Team Providers Care Tnt Line Supervisor Name Role Phone JordanKerwin Unavailable Unavailable Allergies Code Code System Name [...] capsule,delayed release TK 1 C PO QD Completed 11/07/2020 ergocalciferol (vitamin D2) 1,250 mcg (5 0,000 unit) capsule TAKE 1 CAPSULE PO ONCE A WEEK Active Not avail able erythromycin 5 mg/gram (0.5 %) eye ointm ent APPLY TO EAR LOBE BID Completed 12/03/2020 ferrous sulfate 325 mg (65 mg iron) tabl et TK 1 T PO BID Active Not available furosemide 20 mg tablet TAKE 1 TABLET BY MOUTH DAILY Active Not availa ble gabapentin 100 mg capsule TAKE 1 CAPSULE BY MOUTH THREE TIMES DAILY Active Not available hydrocodone 5 mg-acetaminophen 325 mg tablet Completed [...] 12 H FOR 10 DAYS Completed 11/07/2020 kvgiuylb-ohyqsntip-ncdkstowl 3.5 mg-10,0 00 unit/mL-1 % ear drops,susp [...] THEN STOP NEEDED FLARE ONCE A DAY Active Not available pregabalin 100 mg capsule TAKE 1 CAPSULE BY MOUTH TWICE DAILY MAXIMUM DAILY DOSE IS 2 CAPSULES Active Not available pregabalin 75 mg capsule TAKE 1 CAPSULE BY MOUTH TWICE DAILY. MAXIMUM DAILY DOSE IS 2 CAPSULES Completed 12/03/2020 ropinirole 1 mg tablet 1 tablet po once nightly before bed Active Not available ropinirole 2 mg tablet TK 1 T PO HS Completed 11/07/2020 rosuvastatin 10 mg tablet TK 1 T PO QD Active Not available sulfamethoxazole 800 mg-trimethoprim 160 [...] 25 mg tablet Take by oral route. Active Not available Problems Name Status Onset Date Source Hypothyroidism [...] Active 11/07/2020 Placement of Stent Active 11/07/2020 Procedures Date Name Performed by Total Replacement [...] Result Interpretation Description Value Range Status Address 11/13/2020 CMP, Serum or Plasma Normal Glucose, Fastin g 89 mg/dL 70-100 mg/dL [facility]: [address] 0 [facility] High Blood Urea Nitrogen 22 mg/dL 7-18 mg /dL [facility]: [address] [facility] Normal Creatinine for GFR 0.70 mg/dL 0.55-1 .30 mg/dL [facility]: [address] [facility] Normal Glomerular Filtration Rate > 60.0 >4 5 [facility]: [address] [facility] Normal Sodium Level 138 mEq/L 136-145 mEq/L [facility]: [address] [facility] Normal Potassium Serum 4.1 mEq/L 3.5-5.1 mE q/L [facility]: [address] [facility] Normal Chloride Level 100 mEq/L 98-107 mEq/ L [facility]: [address] [facility] High Carbon Dioxide Level 36 mEq/L 21-32 mEq/L [facility]: [address] [facility] Low Anion Gap 2 mEq/L 8-16 mEq/L [facility]: [address] [facility] Normal Calcium Level 9.3 mg/dL 8.8-10.2 mg/ dL [facility]: [address] [facility] Normal AST/SGOT 25 U/L 7-37 U/L [facility]: [address] [facility] Normal ALT/SGPT 52 U/L 12-78 U/L [facility]: [address] [facility] Normal Alkaline Phosphatase 110 U/L 45-117 U/L [facility]: [address] [facility] Normal Bilirubin,total 0.3 mg/dL 0.2-1.0 mg /dL [facility]: [address] [facility] Normal Total Protein 7.1 gm/dL 6.4-8.2 gm/d L [facility]: [address] [facility] Normal Albumin 3.4 gm/dL 3.2-5.2 gm/dL [facility]: [address] [facility] Low Albumin/globulin Ratio 0.9 1.2-2. 2 [facility]: 0 [facility] 11/13/2020 TIBC (Total Iron-binding Capacity), Serum Low Iron (Fe) 24 ug/dL 50-170 ug/dL [facility] nter: 0 [facility] Low Total Iron Binding Capacity 236 ug/d L 250-450 ug/dL [facility]: 0 [facility] Low Percent Saturation 10.2 % 13.2-45.0 % [facility]: 0 [facility] 11/13/2020 TSH + Free T4, Serum Normal Thyroid Stimulating Hormone 1.530 uIU/mL 0.358-3.740 uIU/mL [facility] nter: 0 [facility] Normal Free T4 1.45 NG/dL 0.76-1.46 NG/dL F inal [facility]: 0 [facility] 11/13/2020 Vitamin D, 25-Hydroxy, Total, Serum Normal Total 25(Oh) Vitamin D 60.8 NG/mL 30.0-100.0 NG/mL [facility]: [address] [place] [address] 11/13/2020 Ferritin, Serum or Plasma Normal Ferritin 108 NG/mL 8-252 NG/mL [facility]: 83 0 [facility] 11/13/2020 CBC W/ Auto Diff Normal White Blood Count 8.9 10 4.0-10.0 10 [facility]: [address] [facility] Normal Red Blood Count 4.26 10 4.00-5.40 10 [facility]: 0 [facility] Normal Hemoglobin 12.0 g/dL 12.0-15.5 g/dL [facility]: 0 [facility] Normal Hematocrit 39.3 % 36.0-47.0 % [facility]: 0 [facility] Normal Mean Corpuscular Volume 92.3 fL 80.0 -96.0 fL [facility]: [address] [facility] Normal Mean Corpuscular Hemoglobin 28.2 pg 27.0-33.[address] [facility]: 8[address] [facility] Low Mean Corpuscular HGB Conc 30.5 g/dL 32.0-36.5 g/dL [facility]: [address] [facility] High Red Cell Distribution Width 14.6 % 1 1.5-14.5 % [facility]: [address] [facility] Normal Platelet Count, Automated 406 10 150 -450 10 [facility]: [address] [facility] High Neutrophils % 67.9 % 36.0-66.0 % [facility]: [address] [facility] Low Lymph % 14.9 % 24.0-44.0 % [facility]: 8[address] [facility] [place] % 10.7 % 0.0-5.0 % Final [facility]: [address] [facility] High Eos % 5.9 % 0.0-3.0 % [facility]: [address] [facility] Normal Baso % 0.3 % 0.0-1.0 % [facility]: 0 [facility] Normal Immature Granulocyte % 0.3 % 0-3.0 % [facility]: [address] [facility] Normal Nucleated Red Blood Cell % 0.0 % 0- 0 % [facility]: [address] [facility] Normal Neutrophils # 6.0 10 1.5-8.5 10 [facility]: [address] [facility] Low Lymph # 1.3 10 1.5-5.0 10 [facility]: [address] [facility] [place] # 1.0 10 0.0-0.8 10 [facility]: [address] [facility] Normal Eos # 0.5 10 0.0-0.5 10 [facility]: [address] [facility] Normal Baso # 0.0 10 0.0-0.2 10 Final [facility]: [address] [facility] 11/13/2020 Lyme Disease Igg+igm Ab, Serum Normal Lyme Disease IgG/IgM Antibodie <0.91 isr 0.00-0.[address] [facility]: [address] [facility] Normal Lyme Disease IgM Ab Quantitati <0.80 index 0.00-0.[address] [facility]: 8[address] [facility] Past Encounters 12/03/2020 Adult Health Examination; Anxiety; Depressive Disorder; Iron Deficiency Anemia; Fatigue; Coronary Arteriosclerosis Vickie Oro PA-C: [address] [place] [address], Ph. 11/13/2020 Kerwin Jordan MD: [address] [place] [phone], Ph. 11/07/2020 Excessive Day and Night-time Sleepiness; Confusional State; Dizziness; Hypothyroidism; Iron Deficiency Anemia; Hyperlipidemia; Hypertensive Disorder; Vitamin D Deficiency; Arthropathy Vickie Oro PA-C: [address] [place] [phone], Ph. Social History Tobacco Smoking Status Former Smoker (1 PPD) Notes: Pt repor ts quit 6 or 7 months ago Previous. Vaccine List None recorded. Plan of Care Reminders Provider Appointments None recorded. Lab None recorded. Referral None recorded. Procedures None recorded. Surgeries None recorded. Imaging None recorded. Vitals 12/03/2020 01:40PM ANNUAL EXAM Height Weight BMI Blood Pressure 64.5 in 172 lbs 16 oz 29.2 kg/m2 131/76 mm[Hg] 11/07/2020 12:40PM NEW PATIENT EXAM Height Weight BMI Blood Pressure 64.5 in 173 lbs 8 oz 29.3 kg/m2 130/82 mm[Hg]
--- OUTSIDE RECORDS SUMMARY | 2021-01-19 09:23 | CCD ---
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 Active 201727228 Problem Pulmonary emphysema, unspecified emphysema type J4 3.9 Active 19636722 Problem Postcoital bleeding N93.0 Active 27194605 Problem Mycobacterium 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 Active 3716 14541 Problem Postmenopausal Z78.0 Active 43851847 Problem Rheumatoid arthritis involvi ng multiple sites with positive rheumatoid factor M05.79 Active 429814378 Problem Positive DEE (antinuclear antibody) R76.8 Acti ve 718017516 Problem Other chronic pain G89.29 Active 62549766 Problem Fibromyalgia M79.7 Active 089908593 ALLERGIES Allergen (clinical drug ingredient) Drug/Non Drug Allergy do cumented on EMR Reaction Allergy Type Onset Date Status permethrin Permethrin(NDC Code:[address]-73) Rash Drug Allergy Active hydroxyzine HydrOXYzine HCl(NDC Code:[address]-01) Rash Drug A llergy Active doxycycline Doxycycline Hyclate(NDC Code:[address]-53) Rash Dr alisa Allergy Active ENCOUNTERS from 1953 to 2020-12-04 Encounter Location Date Provider Diagnosis [facility] [address] [place] [phone] 12 Nov, 2020 Davie Nicholas IMMUNIZATIONS No Information [...] Active Vitamin D2 50 MCG (2000 UT) 21540 units1 tablet Orally Once weekly Active Ropinirole [...] No Results REASON FOR VISIT Palliative Care Issue MEDICAL (GENERAL) HISTORY Type Description Date Medical [...] wound with celulitis Hospitalization History [facility] [place] 06/10-07/11 Goals Section No Information Health Concerns No Information MEDICAL EQUIPMENT No Information MENTAL STATUS No Information FUNCTIONAL STATUS No Information ASSESSMENTS No Information PLAN OF TREATMENT Medication Medication Name Sig Start Date Stop Date Lyrica 150 MG 1 capsule Orally twice daily for 30 day(s) 2019 Next Appt Details Provider Name:Davie Dillon Nicholas, 2021-01-25 01:30:00 PM, [address] [place], [address], Insurance Providers Payer Name Payer Address Payer Phone Insured Name Patient Relati onship to Insured Coverage Start Date Coverage End Date [facility] [id number] [facility] [address] TEDDY GOODWIN MEDICARE Part A and B [address] [facility] [phone] TEDDY GOODWIN
--- OUTSIDE RECORDS SUMMARY | 2021-01-19 09:23 | CCD | Continuity of Care Document ---
Author Author Nasir/Leanna MCDANIEL Organization Unknown Address [address] [place] [address] Phone [phone] Care Team Providers Care Incident Response Analyst Name Role Phone Vickie Oro P.A.-C. AUTM [phone] Problems Active Problems Provider Date Dizziness Kate [...] lb BMI (Body Mass Index) 29.7 kg/m2 [place] Body Weight 120 lb Results Description No Information Available Procedures Date Code Description Status 12/07/2020 59071 Sympathetic Skin Responses Compl eted 12/07/2020 42383 Sympathetic Skin Responses Compl eted 12/07/2020 72186 Test Autonomic Nervous System, C ardiovagal Innervation Completed 12/07/2020 14689 Test Autonomic Nervous System, C ardiovagal Innervation Completed 11/28/2020 76542 Nerve Conduction 13+ Studies Com pleted 11/28/2020 25732 Needle Electromyography Complete , Five Or More Muscles Studied Completed 11/28/2020 01126 Needle Electromyography Complete , Five Or More Muscles Studied Completed Medical Devices Description No Information Available Encounters Type Date Location Provider Dx Diagnosis Office Visit 11/14/2020 1:00p Main office - [place] Kate anthony M.D. R42 Dizziness and giddiness R26.81 Unsteadiness on feet R41.82 Altered mental status, unspe cified R29.6 Repeated falls Assessments Date Code Description Provider 12/07/2020 I95.1 Orthostatic hypotension Kate mari M.D. [...] Peralta M.D. Plan of Treatment Future Appointment(s):* 01/03/2021 11:30 am - MRI at [facility] * 12/28/2020 12:15 pm - Kate Peralta M.D. at [facility] * 01/03/2021 12:45 pm - EEG at [facility] Functional Status Description No Information Available Mental Status Description No Information Available Referrals Refer to Dr Reason for Referral Status Appt Date Kate Peralta M.D. Created 0 [address] [place] [address] [phone]
--- OUTSIDE RECORDS SUMMARY | 2021-01-19 09:23 | CCD ---
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 Active 286072463 Problem Pulmonary emphysema, unspecified emphysema type J4 3.9 Active 67552193 Problem Postcoital bleeding N93.0 Active 43948894 Problem Mycobacterium 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 Active 3716 89571 Problem Postmenopausal Z78.0 Active 09803414 Problem Rheumatoid arthritis involvi ng multiple sites with positive rheumatoid factor M05.79 Active 001153061 Problem Positive DEE (antinuclear antibody) R76.8 Acti ve 267809311 Problem Other chronic pain G89.29 Active 54189098 Problem Fibromyalgia M79.7 Active 118779493 ALLERGIES Allergen (clinical drug ingredient) Drug/Non Drug Allergy do cumented on EMR Reaction Allergy Type Onset Date Status permethrin Permethrin(NDC Code:[address]-16) Rash Drug Allergy Active hydroxyzine HydrOXYzine HCl(NDC Code:[address]-42) Rash Drug A llergy Active doxycycline Doxycycline Hyclate(NDC Code:[address]-40) Rash Dr alisa Allergy Active ENCOUNTERS from 1955 to 2020-12-04 Encounter Location Date Provider Diagnosis [facility] Pain Clinic [address] [place] [phone] 12 Nov, 2020 Davie Nicholas IMMUNIZATIONS No [...] Active Vitamin D2 50 MCG (2000 UT) 80093 units1 tablet Orally Once weekly Active Ropinirole [...] wound with celulitis Hospitalization History [facility] [place] 06/10-07/11 Goals Section No Information Health Concerns No Information MEDICAL EQUIPMENT No Information MENTAL STATUS No Information FUNCTIONAL STATUS No Information ASSESSMENTS No Information PLAN OF TREATMENT Medication Medication Name Sig Start Date Stop Date Lyrica 150 MG 1 capsule Orally twice daily for 30 day(s) 2019 Next Appt Details Provider Name:Davie Dillon Nicholas, 2021-01-25 01:30:00 PM, [address] [place], [address], Insurance Providers Payer Name Payer Address Payer Phone Insured Name Patient Relati onship to Insured Coverage Start Date Coverage End Date MEDICARE Part A and B [address] [facility] [id number] [phone] TEDDY GOODWIN [facility] [address] [facility] [phone] TEDDY GOODWIN
--- OUTSIDE RECORDS SUMMARY | 2021-01-19 09:23 | CCD ---
Author Organization Unknown Address [address] [place] [address] Phone [phone] Care Team Providers Care Group Underwriter Name Role Phone JordanKerwin Unavailable Unavailable Allergies [...] 12 H FOR 10 DAYS Completed 11/07/2020 [id number] 3.5 mg-10,0 00 unit/mL-1 % ear drops,susp [...] FLARE ONCE A DAY Completed 12/28/2020 pregabalin 100 mg capsule TAKE 1 CAPSULE BY MOUTH TWICE DAILY MAXIMUM DAILY DOSE IS 2 CAPSULES Active Not available pregabalin 150 mg capsule TAKE 1 CAPSULE [...] Take by oral route. Active Not available Notes: Pt reports Neurologist wants her to [...] Glucose, Fastin g 89 mg/dL 70-100 mg/dL [facility]: 83 0 [facility] High Blood Urea Nitrogen 22 mg/dL 7-18 mg /dL [facility]: 830 [facility] Normal Creatinine for GFR 0.70 mg/dL 0.55-1 .30 mg/dL [facility]: 0 [facility] Normal Glomerular Filtration Rate > 60.0 >4 5 [facility]: 830 [facility] Normal Sodium Level 138 mEq/L 136-145 mEq/L [facility]: 0 [facility] Normal Potassium Serum 4.1 mEq/L 3.5-5.1 mE q/L [facility]: 830 [facility] Normal Chloride Level 100 mEq/L 98-107 mEq/ L [facility]: 0 [facility] High Carbon Dioxide Level 36 mEq/L 21-32 mEq/L [facility]: 830 [facility] Low Anion Gap 2 mEq/L 8-16 mEq/L [facility]: 0 [facility] Normal Calcium Level 9.3 mg/dL 8.8-10.2 mg/ dL [facility]: 830 [facility] Normal AST/SGOT 25 U/L 7-37 U/L [facility]: 830 [facility] Normal ALT/SGPT 52 U/L 12-78 U/L [facility]: 830 [facility] Normal Alkaline Phosphatase 110 U/L 45-117 U/L [facility]: 830 [facility] Normal Bilirubin,total 0.3 mg/dL 0.2-1.0 mg /dL [facility]: 830 [facility] Normal Total Protein 7.1 gm/dL 6.4-8.2 gm/d L [facility]: 830 [facility] Normal Albumin 3.4 gm/dL 3.2-5.2 gm/dL Era l [facility]: 830 [facility] Low Albumin/globulin Ratio 0.9 1.2-2. 2 [facility]: 830 [facility] 11/13/2020 TIBC (Total Iron-binding Capacity), Serum Low Iron (Fe) 24 ug/dL 50-170 ug/dL [facility] nter: [address] [place] [address] Low Total Iron Binding Capacity 236 ug/d L 250-450 ug/dL [facility]: [address] [place] [address] Low Percent Saturation 10.2 % 13.2-45.0 % [facility]: 0 [facility] 11/13/2020 TSH + Free T4, Serum Normal Thyroid Stimulating Hormone 1.530 uIU/mL 0.358-3.740 uIU/mL [facility] nter: 0 [facility] Normal Free T4 1.45 NG/dL 0.76-1.46 NG/dL F inal [facility]: 0 [facility] 11/13/2020 Vitamin D, 25-Hydroxy, Total, Serum Normal Total 25(Oh) Vitamin D 60.8 NG/mL 30.0-100.0 NG/mL [facility]: 0 [facility] 11/13/2020 Ferritin, Serum or Plasma Normal Ferritin 108 NG/mL 8-252 NG/mL [facility]: 83 0 [facility] 11/13/2020 CBC W/ Auto Diff Normal White Blood Count 8.9 10 4.0-10.0 10 [facility]: 830 [facility] Normal Red Blood Count 4.26 10 4.00-5.40 10 [facility]: 0 [facility] Normal Hemoglobin 12.0 g/dL 12.0-15.5 g/dL [facility]: 830 [facility] Normal Hematocrit 39.3 % 36.0-47.0 % [facility]: 830 [facility] Normal Mean Corpuscular Volume 92.3 fL 80.0 -96.0 fL [facility]: 830 [facility] Normal Mean Corpuscular Hemoglobin 28.2 pg 27.0-33.0 pg [facility]: [address] [place] [address] Low Mean Corpuscular HGB Conc 30.5 g/dL 32.0-36.5 g/dL [facility]: [address] [place] [address] High Red Cell Distribution Width 14.6 % 1 1.5-14.5 % [facility]: [address] [place] [address] Normal Platelet Count, Automated 406 10 150 -450 10 [facility]: 0 [facility] High Neutrophils % 67.9 % 36.0-66.0 % [facility]: 830 [facility] Low Lymph % 14.9 % 24.0-44.0 % [facility]: 830 [facility] High [place] % 10.7 % 0.0-5.0 % [facility]: 0 [facility] High Eos % 5.9 % 0.0-3.0 % [facility]: 830 [facility] Normal Baso % 0.3 % 0.0-1.0 % [facility]: 830 [facility] Normal Immature Granulocyte % 0.3 % 0-3.0 % [facility]: 0 [facility] Normal Nucleated Red Blood Cell % 0.0 % 0- 0 % [facility]: 0 [facility] Normal Neutrophils # 6.0 10 1.5-8.5 10 [facility]: 830 [facility] Low Lymph # 1.3 10 1.5-5.0 10 [facility]: 830 [facility] High [place] # 1.0 10 0.0-0.8 10 [facility]: 830 [facility] Normal Eos # 0.5 10 0.0-0.5 10 Final [facility]: 830 [facility] Normal Baso # 0.0 10 0.0-0.2 10 [facility]: 830 [facility] 11/13/2020 Lyme Disease Igg+igm Ab, Serum Normal Lyme Disease IgG/IgM Antibodie <0.91 isr 0.00-0.90 isr [facility]: 830 [facility] Normal Lyme Disease IgM Ab Quantitati <0.80 index 0.00-0.79 index [facility]: 830 [facility] Past Encounters 12/28/2020 Iron Deficiency Anemia; Anxiety; Fatigue; Dizziness Vickie Oro PA-C: [address] [place] [phone], Ph. 12/03/2020 Adult Health Examination; Anxiety; Depressive Disorder; Iron Deficiency Anemia; Fatigue; Coronary Arteriosclerosis Vickie Oro PA-C: [address] [place] [phone], Ph. 11/13/2020 Kerwin Jordan MD: [address] [place] [phone], Ph. 11/07/2020 Excessive Day and Night-time Sleepiness; Confusional State; Dizziness; Hypothyroidism; Iron Deficiency Anemia; Hyperlipidemia; Hypertensive Disorder; Vitamin D Deficiency; Arthropathy Vickie Oro PA-C: [address] [place] [phone], Ph. Social History Tobacco Smoking Status Former Smoker (1 PPD) Notes: Pt repor ts quit 6 or 7 months ago Previous Vaccine List Vaccine Type pneumococcal polysaccharide PPV23 07/08/2016 Plan of Care [...]
--- OUTSIDE RECORDS SUMMARY | 2021-01-19 09:23 | CCD ---
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 Active 072718379 Problem Pulmonary emphysema, unspecified emphysema type J4 3.9 Active 69605804 Problem Postcoital bleeding N93.0 Active 32803503 Problem Mycobacterium 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 Active 3716 48295 Problem Postmenopausal Z78.0 Active 77560467 Problem Rheumatoid arthritis involvi ng multiple sites with positive rheumatoid factor M05.79 Active 308847400 Problem Positive DEE (antinuclear antibody) R76.8 Acti ve 126619171 Problem Other chronic pain G89.29 Active 25275492 Problem Fibromyalgia M79.7 Active 655026882 ALLERGIES Allergen (clinical drug ingredient) Drug/Non Drug Allergy do cumented on EMR Reaction Allergy Type Onset Date Status permethrin Permethrin(NDC Code:[address]-56) Rash Drug Allergy Active hydroxyzine HydrOXYzine HCl(NDC Code:[address]-75) Rash Drug A llergy Active doxycycline Doxycycline Hyclate(NDC Code:[address]-33) Rash Dr alisa Allergy Active ENCOUNTERS from 1955 to 2020-12-19 Encounter Location Date Provider Diagnosis [facility] Pain Clinic [address] [place] [phone] Nov, Davie Peterson Fibromyalgia M79.7 IMMUNIZATIONS No [...] Notes Start Da te End Date Status Abilify 5 MG 1 tab(s) p.o. Once a day for 30 day(s) Not-Taking Divalproex Sodium ER 500 MG TK 1 T PO QD Oral for 90 Unknown Levothyroxine Sodium 112 MCG 1 tablet every morning on an empty stomach Orally Once a day Unknown Myrbetriq 50 MG 1 tablet Orally Once a day for 30 day(s) 0 5 Nov, 2020 Active Aripiprazole 5 MG TK 1 T PO QD Oral for 90 Unknown Ipratropium-Albuterol 0.5-2.5 (3) MG/3ML Inhalation for 5 Unknown Vitamin D2 50 MCG (1999 UT) 39781 units1 tablet Orally Once weekly Active Depakote ER 500 mg 1 tab(s) Orally three times a day Not-Taking HydrOXYzine HCl 10 MG TK 1 OR 2 TS PO Q 6 H NEEDED FOR PANIC Ora l for 7 Unknown Atorvastatin Calcium 40 MG TK 1 T PO D Oral for 30 Unknown Meloxicam 7.5 MG 1 tablet Orally twice a day Active Multivitamin Women 50+ - as directed Orally Active Azelastine HCl 0.1 % U 2 SPRAYS IEN BID Nasal for 75 Unknown Duloxetine HCl 60 MG TK 1 C PO QD Oral for 90 Unknown Aspirin 81 81 MG 1 tablet Orally Once a day for 30 day(s) Active Vitamin C 1000 MG 1 tablet Orally Once a day for 30 day(s) Active Premarin 0.625 MG/GM 1 gm Vaginal 2xwk for 30 day(s) 18 2012 Active Lisinopril 2.5 2.5 mg 1 tab(s) oral once a day Active Acetaminophen-Codeine #4 300-60 MG 1 tab(s) p.o. as needed Not-Taking Aspirin 325 MG 1 tablet Orally Once a day for 30 day(s) Not-Taking Lyrica 150 MG 1 capsule Orally twice daily for 30 day(s) 2 Oct, Active Levothyroxine Sodium 137mcg 1 tablet every morning on an empty stomach Orally Once a day for 30 day(s) Active Tizanidine HCl 2 MG 1 tablet as needed Orally at bedtime for 30 days Oct, Active ProAir HFA 108 (90 Base) MCG/ACT INHALE 2 PUFFS PO QID PRN Inhal ation for 75 Active Clindamycin HCl 300 MG 2 capsules Orally every 8 hrs for 10 day(s) Unknown Sleep Aid 25 MG 2 tablet at bedtime as needed Orally Once a day Active Aleve 220 MG 1 tablet with food or milk as needed Orally every 12 hrs Not-Taking PredniSONE 10 MG 2 tablets daily for 3 days, 1 tablet daily for 3 days, 1/2 tab daily for 3 days then stop prn flare Orally Once a day for 30 day(s) March, Active Hydrocodone-Acetaminophen 5-325 MG (Schedule II Drug) Oral for 30 Unknown Levothyroxine Sodium 150 MCG 1 tablet in the morning o n an empty stomach Orally Once a day Unknown Carvedilol 6.25 MG TAKE 1 TABLET BY MOUTH TWICE A DAY Oral for 90 Unknown Trazodone HCl 100 MG TK 1 T PO HS Oral for 30 Unknown Acetaminophen 500 MG 2 tablet as needed Orally every 12 hrs as needed for pain Oct, Active Pantoprazole Sodium 20 mg 1 tab(s) p.o. Once a day for 30 day(s) Unknown Ropinirole HCl 1 MG 1 tablet Orally 4 daily Active Co Q 10 100 MG 1 capsule with a meal Orally Once a day for 30 day(s) Active Acetaminophen-Codeine #3 300-30 MG 1 tablet as needed Orally every 12 hrs as needed for pain for 5 days Oct, Unkno wn Ferrous Sulfate 325 MG Orally daily Unknown Sulfasalazine 500 MG 2 tablet Orally bid for 90 days Active Vitamin B12 1000 MCG takes 2500 mcg 1 tablet Orally Once a day Active Breo Ellipta 200-25 MCG/INH INHALE ONE PUFF PO EVERY DAY Inhalation for 30 Active Vitamin C 500 mg 1 tab(s) Orally once a day Active Requip 0.5 MG 1 tab(s) Orally once a day for 30 day(s) Active Lasix 20 mg 1 tablet Orally Once a day for 30 day(s) Not-Taking Coreg 3.125mg 1 tab(s) oral twice a day Not-Taking Rosuvastatin Calcium 10 MG TK 1 T PO QD Oral for 90 Active Amitriptyline HCl 25 MG 1 tab(s) p.o. Once a day for 30 day(s) Not-Taking Lipitor 40 mg 1 tablet Orally Once a day for 30 day(s) Not-Taking Multivitamins otc 1 tab(s) Orally once a day Active Pantoprazole Sodium 40 MG 1 tab(s) Orally Once a day Active Incruse Ellipta 62.5 MCG/INH INHALE 1 PUFF PO DAILY Inhalation for 30 Active Ropinirole HCl 1 MG TK 1 [...] Information RESULTS No Results REASON FOR VISIT refills tizanidine, pregabalin MEDICAL (GENERAL) HISTORY Type Description Date Medical [...] leg wound with celulitis Hospitalization History [facility] [place] 06/10-07/11 Goals Section No Information Health Concerns No Information MEDICAL EQUIPMENT No Information MENTAL STATUS No Information FUNCTIONAL STATUS No Information ASSESSMENTS Encounter Date Diagnosis Assessment Notes Treatment Notes Treatm ent Clinical Notes Nov, Fibromyalgia (ICD-10 - M79.7) PLAN OF TREATMENT Medication Medication Name Sig Start Date Stop Date Tizanidine HCl 2 MG 1 tablet as needed Orally at bedtime for 30 days Oct, Lyrica 150 MG 1 capsule Orally twice daily for 30 day(s) 2019 Next Appt Details Provider Name:Davie Dillon Nicholas, 2021-01-25 01:30:00 PM, [address] [place], [address], Insurance Providers Payer Name Payer Address Payer Phone Insured Name Patient Relati onship to Insured Coverage Start Date Coverage End Date MEDICARE Part A and B [address] [facility] [address] [phone] TEDDY GOODWIN [facility] [address] [facility] [address] TEDDY GOODWIN
--- OUTSIDE RECORDS SUMMARY | 2021-01-19 09:23 | CCD ---
Author Author [facility] Organization 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 Active 381163593 Problem Pulmonary emphysema, unspecified emphysema type J4 3.9 Active 43216411 Problem Postcoital bleeding N93.0 Active 32039392 Problem Mycobacterium 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 Active 3716 10946 Problem Postmenopausal Z78.0 Active 49861301 Problem Rheumatoid arthritis involvi ng multiple sites with positive rheumatoid factor M05.79 Active 510539815 Problem Positive DEE (antinuclear antibody) R76.8 Acti ve 404384822 Problem Other chronic pain G89.29 Active 62914775 Problem Fibromyalgia M79.7 Active 571898611 ALLERGIES Allergen (clinical drug ingredient) Drug/Non Drug Allergy do cumented on EMR Reaction Allergy Type Onset Date Status permethrin Permethrin(NDC Code:[address]-34) Rash Drug Allergy Active hydroxyzine HydrOXYzine HCl(NDC Code:[address]-17) Rash Drug A llergy Active doxycycline Doxycycline Hyclate(NDC Code:[address]-80) Rash Dr alisa Allergy Active ENCOUNTERS from 1955 to 2020-12-04 Encounter Location Date Provider Diagnosis [facility] Pain Clinic [address] [place] [phone] 11 Nov, 2020 Davie Nicholas IMMUNIZATIONS No [...] Active Vitamin D2 50 MCG (2000 UT) 49890 units1 tablet Orally Once weekly Active Ropinirole [...] Information RESULTS No Results REASON FOR VISIT GABAPENTIN/NURSE MEDICAL (GENERAL) HISTORY Type Description Date Medical [...] wound with celulitis Hospitalization History [facility] [place] 06/10-07/11 Goals Section No Information Health Concerns No Information MEDICAL EQUIPMENT No Information MENTAL STATUS No Information FUNCTIONAL STATUS No Information ASSESSMENTS No Information PLAN OF TREATMENT Medication Medication Name Sig Start Date Stop Date Lyrica 150 MG 1 capsule Orally twice daily for 30 day(s) 2019 Next Appt Details Provider Name:Davie Dillon Nicholas, 2021-01-25 01:30:00 PM, [address] [place], [address], Insurance Providers Payer Name Payer Address Payer Phone Insured Name Patient Relati onship to Insured Coverage Start Date Coverage End Date MEDICARE Part A and B [address] [facility] [id number] [phone] TEDDY GOODWIN [facility] [address] [facility] [address] TEDDY GOODWIN
--- OUTSIDE RECORDS SUMMARY | 2021-01-19 09:23 | CCD ---
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 Active 218416778 Problem Pulmonary emphysema, unspecified emphysema type J4 3.9 Active 36474781 Problem Postcoital bleeding N93.0 Active 05928473 Problem Mycobacterium 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 Active 3716 10348 Problem Postmenopausal Z78.0 Active 71375099 Problem Rheumatoid arthritis involvi ng multiple sites with positive rheumatoid factor M05.79 Active 299441363 Problem Positive DEE (antinuclear antibody) R76.8 Acti ve 525064307 Problem Other chronic pain G89.29 Active 49515540 Problem Fibromyalgia M79.7 Active 717194241 ALLERGIES Allergen (clinical drug ingredient) Drug/Non Drug Allergy do cumented on EMR Reaction Allergy Type Onset Date Status permethrin Permethrin(NDC Code:[address]-20) Rash Drug Allergy Active hydroxyzine HydrOXYzine HCl(NDC Code:[address]-03) Rash Drug A llergy Active doxycycline Doxycycline Hyclate(NDC Code:[address]-73) Rash Dr alisa Allergy Active ENCOUNTERS from 1955 to 2020-12-16 Encounter Location Date Provider Diagnosis [facility] [address] [place] [id number] Nov, Davie Nicholas IMMUNIZATIONS No Information SOCIAL HISTORY [...] Active Vitamin D2 50 MCG (2000 UT) 07501 units1 tablet Orally Once weekly Active Ropinirole [...] Information RESULTS No Results REASON FOR VISIT EYE ISSUE MEDICAL (GENERAL) HISTORY Type Description Date Medical [...] wound with celulitis Hospitalization History [facility] [place] 06/10-07/11 Goals Section No Information Health Concerns No Information MEDICAL EQUIPMENT No Information MENTAL STATUS No Information FUNCTIONAL STATUS No Information ASSESSMENTS No Information PLAN OF TREATMENT Medication Medication Name Sig Start Date Stop Date Lyrica 150 MG 1 capsule Orally twice daily for 30 day(s) 2019 Next Appt Details Provider Name:Davie Dillon Nicholas, 2021-01-25 01:30:00 PM, [address] [place], [address], Insurance Providers Payer Name Payer Address Payer Phone Insured Name Patient Relati onship to Insured Coverage Start Date Coverage End Date [facility] [address] [facility] [phone] [employer] GOODWIN MEDICARE Part A and B [address] [facility] [phone] T[employer]DY GOODWIN
--- OUTSIDE RECORDS SUMMARY | 2021-01-19 09:24 | CCD | Continuity of Care Document ---
Author Author Leanna SALDIVAR M.D. Organization Unknown Address [address] [place] [address] Phone [phone] Care Team Providers Care Dish Carrier Name Role Phone Vickie Oro P.A.-C. TIFFANYM [phone] Problems Active Problems Provider Date Dizziness Kate [...] lb BMI (Body Mass Index) 29.7 kg/m2 [place] Body Weight 120 lb Results Description No Information Available Procedures Description No Information Available Medical Devices Description No Information Available Encounters Type Date Location Provider Dx Diagnosis Office Visit 11/14/2020 1:00p Main office - [place] Kate anthony M.D. R42 Dizziness and giddiness [...] 12:15 pm - Kate Saldivar M.D. at [facility] * 11/28/2020 1:00 pm - Kate Saldivar M.D. at [facility] * 01/03/2021 12:45 pm - EEG at [facility] * 12/07/2020 2:15 pm - Ans/VS at [facility] Functional Status Description No Information Available Mental Status Description No Information Available Referrals Refer to Reason for Referral Status Appt Date Kate Saldivar M.D. Created [address] [place] [address] [phone]
--- OUTSIDE RECORDS SUMMARY | 2021-01-19 09:24 | CCD ---
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 Active 766770900 Problem Pulmonary emphysema, unspecified emphysema type J4 3.9 Active 66666745 Problem Postcoital bleeding N93.0 Active 01731849 Problem Mycobacterium 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 Active 3716 45013 Problem Postmenopausal Z78.0 Active 67765381 Problem Rheumatoid arthritis involvi ng multiple sites with positive rheumatoid factor M05.79 Active 312276107 Problem Positive DEE (antinuclear antibody) R76.8 Acti ve 376828577 Problem Other chronic pain G89.29 Active 90491817 Problem Fibromyalgia M79.7 Active 253145230 ALLERGIES Allergen (clinical drug ingredient) Drug/Non Drug Allergy do cumented on EMR Reaction Allergy Type Onset Date Status permethrin Permethrin(NDC Code:[address]-74) Rash Drug Allergy Active hydroxyzine HydrOXYzine HCl(NDC Code:[address]-11) Rash Drug A llergy Active doxycycline Doxycycline Hyclate(NDC Code:[address]-70) Rash Dr alisa Allergy Active ENCOUNTERS from 1955 to 2020-11-21 Encounter Location Date Provider Diagnosis [facility] [address] [place] [address] Oct, Davie Peterson IMMUNIZATIONS No Information SOCIAL HISTORY Sex Assigned At : Social History Observation [...] Normal BMI Follow-Up Giving encouragement to exercise REASON FOR REFERRAL No Information VITAL SIGNS No information MEDICATIONS Medication SIG (Take, Route, Frequency, Duration) Notes Start Da te End Date Status Tizanidine HCl 2 MG 1 tablet as needed Orally at bedtime for 30 days Oct, Active Levothyroxine Sodium 150 MCG 1 tablet in the morning o n an empty stomach Orally Once a day Active Levothyroxine Sodium 112 MCG 1 tablet every morning on an empty stomach Orally Once a day Not-Taking PredniSONE 10 MG 2 tablets daily for 3 days, 1 tablet daily for 3 days, 1/2 tab daily for 3 days then stop prn flare Orally Once a day for 30 day(s) March, Not-Taking Acetaminophen-Codeine #3 300-30 MG 1 tablet as needed Orally every 12 hrs as needed for pain for 5 days Oct, Activ e Rosuvastatin Calcium 10 MG TK 1 T PO QD Oral for 90 Active Clindamycin HCl 300 MG 2 capsules Orally every 8 hrs for 10 day(s) Active Sulfasalazine 500 MG 2 tablet Orally bid for 90 days Active Acetaminophen 500 MG 2 tablet as needed Orally ev sepideh 12 hrs as needed for pain for 30 days Oct, Active Ferrous Sulfate 325 MG Orally daily Active Carvedilol 6.25 MG TAKE 1 TABLET BY MOUTH TWICE A DAY Oral for 90 Not-Taking Atorvastatin Calcium 40 MG TK 1 T PO D Oral for 30 Not-Taking Divalproex Sodium ER 500 MG TK 1 T PO QD Oral for 90 Not-Taking HydrOXYzine HCl 10 MG TK 1 OR 2 TS PO Q 6 H NEEDED FOR PANIC Ora l for 7 Not-Taking Incruse Ellipta 62.5 MCG/INH INHALE 1 PUFF PO DAILY Inhalation for 30 Active Breo Ellipta 200-25 MCG/INH INHALE ONE PUFF PO EVERY DAY Inhalation for 30 Active Azelastine HCl 0.1 % U 2 SPRAYS IEN BID Nasal for 75 Not-Taking Pantoprazole Sodium 20 mg 1 tab(s) p.o. Once a day for 30 day(s) Active Trazodone HCl 100 MG TK 1 T PO HS Oral for 30 Not-Taking Aripiprazole 5 MG TK 1 T PO QD Oral for 90 Not-Taking Ipratropium-Albuterol 0.5-2.5 (3) MG/3ML Inhalation for 5 Not-Taking Duloxetine HCl 60 MG TK 1 C PO QD Oral for 90 Not-Taking Ropinirole HCl 1 MG TK 1 T PO HS Oral for 90 Active Myrbetriq 50 MG TK 1 T PO EVERY DAY Oral for 30 Active Hydrocodone-Acetaminophen 5-325 MG (Schedule II Drug) Oral for 30 Not-Taking ProAir HFA 108 (90 Base) MCG/ACT INHALE 2 PUFFS PO QID PRN Inhal ation for 75 Active Lyrica 100 MG 1 capsule Orally twice daily for 30 day(s) 2 Oct, Active PROCEDURES No Information RESULTS No Results REASON FOR VISIT INCREASE IN PAIN/REQUEST MEDS MEDICAL (GENERAL) HISTORY Type Description Date Medical [...] leg wound with celulitis Hospitalization History [facility] 06/10-07/11 Goals Section No Information Health Concerns No Information MEDICAL EQUIPMENT No Information MENTAL STATUS No Information FUNCTIONAL STATUS No Information ASSESSMENTS No Information PLAN OF TREATMENT Medication Medication Name Sig Start Date Stop Date Tizanidine HCl 2 MG 1 tablet as needed Orally at bedtime for 30 days Oct, Lyrica 100 MG 1 capsule Orally twice daily for 30 day(s) 2019 Next Appt Details Provider Name:Davie Petreson, 2020-11-27 09:45:00 AM, [address] [place], [address], Insurance Providers Payer Name Payer Address Payer Phone Insured Name Patient Relati onship to Insured Coverage Start Date Coverage End Date [facility] [address] [facility] [phone] [employer] MEDICARE Part A and B [address] [facility] [phone] T[employer]WIN
--- OUTSIDE RECORDS SUMMARY | 2021-01-19 09:24 | CCD ---
Author Author [facility] Organization [facility] Address Unknown Phone Unavailable Care Team Providers Care Baked Goods Stock Clerk Name Role Phone Davie Peterson Unavailable PROBLEMS Type Condition ICD9-CM Code CTN36-VA Code Onset Dates Condition S tatus SNOMED Code Notes Problem Acquired absence of both cervix and uterus Z90.710 Active 987713823 Problem Atrophic vaginitis N95.2 Active 26495126 Problem Idiopathic chronic venous hy pertension of right lower extremity with ulcer I87.311 Active 990797890 Problem Pulmonary emphysema, unspecified emphysema type J4 3.9 Active 53947138 Problem Postcoital bleeding N93.0 Active 40747193 Problem Mycobacterium 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 Active 3716 59437 Problem Postmenopausal Z78.0 Active 22100210 Problem Rheumatoid arthritis involvi ng multiple sites with positive rheumatoid factor M05.79 Active 171528903 Problem Positive DEE (antinuclear antibody) R76.8 Acti ve 627320881 Problem Other chronic pain G89.29 Active 41848004 Problem Fibromyalgia M79.7 Active 512748314 ALLERGIES Allergen (clinical drug ingredient) Drug/Non Drug Allergy do cumented on EMR Reaction Allergy Type Onset Date Status permethrin Permethrin(NDC Code:[address]-73) Rash Drug Allergy Active hydroxyzine HydrOXYzine HCl(NDC Code:[address]-46) Rash Drug A llergy Active doxycycline Doxycycline Hyclate(NDC Code:[address]-63) Rash Dr alisa Allergy Active ENCOUNTERS from 1955 to 2020-11-19 Encounter Location Date Provider Diagnosis [facility] [address] [place] [phone] Oct, Davie Peterson IMMUNIZATIONS No Information SOCIAL [...] Information RESULTS No Results REASON FOR VISIT PAIN MEDICAL (GENERAL) HISTORY Type Description Date Medical [...] R leg wound with celulitis Hospitalization History [facility] [place] 06/10-07/11 Goals Section No Information Health Concerns [...] day(s) 2019 Next Appt Details Provider Name:Davie Peterson, 2020-12-03 01:45:00 PM, [address] [place], [address], Insurance Providers Payer Name Payer Address Payer Phone Insured Name Patient Relati onship to Insured Coverage Start Date Coverage End Date [facility] [address] [facility] [phone] [employer]WIN MEDICARE Part A and B [address] [facility] [phone] TEDDY GOODWIN
--- OUTSIDE RECORDS SUMMARY | 2021-01-19 09:25 | CCD ---
Author Author [facility] Address Unknown Phone Unavailable Care Team Providers Care Load Checker Name Role Phone Richie Jordan MD Unavailable Unavailable Richie Jordan MD Unavailable Unavailable Richie Jordan MD Unavailable Unavailable Richie Jordan MD Unavailable Unavailable Richie Jordan MD Unavailable Unavailable Richie Jordan MD Unavailable Unavailable Richie Jordan MD Unavailable Unavailable Richie Jordan MD Unavailable Unavailable Richie Jordan MD Unavailable Unavailable Richie Jordan MD Unavailable Unavailable Richie Jordan MD Unavailable Unavailable Richie Jordan MD Unavailable Unavailable Richie Jordan MD Unavailable Unavailable Richie Jordan MD Unavailable Unavailable Richie Jordan MD Unavailable Unavailable Richie Jordan MD Unavailable Unavailable Richie Jordan MD Unavailable Unavailable Richie Jordan MD Unavailable Unavailable Richie Jordan MD Unavailable Unavailable Richie Jordan MD Unavailable Unavailable Richie Jordan MD Unavailable Unavailable Richie Jordan MD Unavailable Unavailable Richie Jordan MD Unavailable Unavailable Richie Jordan MD Unavailable Unavailable Richie Jordan MD Unavailable Unavailable Richie Jordan MD Unavailable Unavailable Richie Jordan MD Unavailable Unavailable Richie Jordan MD Unavailable Unavailable Richie Jordan MD Unavailable Unavailable Richie Jordan MD Unavailable Unavailable Richie Jordan MD Unavailable Unavailable Richie Jordan MD Unavailable Unavailable Richie Jordan MD Unavailable Unavailable Richie Jordan MD Unavailable Unavailable Richie Jordan MD Unavailable Unavailable Richie Jordan MD Unavailable Unavailable Richie Jordan MD Unavailable Unavailable Richie Jordan MD Unavailable Unavailable Richie Jordan MD Unavailable Unavailable Richie Jordan MD Unavailable Unavailable Richie Jordan MD Unavailable Unavailable Richie Jordan MD Unavailable Unavailable Richie Jordan MD Unavailable Unavailable Richie Jordan MD Unavailable Unavailable Richie Jordan MD Unavailable Unavailable Richie Jordan MD Unavailable Unavailable Richie Jordan MD Unavailable Unavailable Richie Jordan MD Unavailable Unavailable Richie Jordan MD Unavailable Unavailable Richie Jordan MD Unavailable Unavailable Richie Jordan MD Unavailable Unavailable Richie Jordan MD Unavailable Unavailable Richie Jordan MD Unavailable Unavailable Richie Jordan MD Unavailable Unavailable Richie Jordan MD Unavailable Unavailable Richie Jordan MD Unavailable Unavailable Richie Jordan MD Unavailable Unavailable Richie Jordan MD Unavailable Unavailable Richie Jordan MD Unavailable Unavailable Richie Jordan MD Unavailable Unavailable Richie Jordan MD Unavailable Unavailable Richie Jordan MD Unavailable Unavailable Richie Jordan MD Unavailable Unavailable Richie Jordan MD Unavailable Unavailable Richie Jordan MD Unavailable Unavailable Richie Jordan MD Unavailable Unavailable Richie Jordan MD Unavailable Unavailable Richie Jordan MD Unavailable Unavailable Richie Jordan MD Unavailable Unavailable Richie Jordan MD Unavailable Unavailable Richie Jordan MD Unavailable Unavailable Richie Jordan MD Unavailable Unavailable Richie Jordan MD Unavailable Unavailable Richie Jordan MD Unavailable Unavailable Richie Jordan MD Unavailable Unavailable Richie oJrdan MD Unavailable Unavailable Richie Jordan MD Unavailable Unavailable Richie Jordan MD Unavailable Unavailable Richie Jordan MD Unavailable Unavailable Richie Jordan MD Unavailable Unavailable Richie Jordan MD Unavailable Unavailable Richie Jordan MD Unavailable Unavailable Richie Jordan MD Unavailable Unavailable Richie Jordan MD Unavailable Unavailable Richie Jordan MD Unavailable Unavailable Richie Jordan MD Unavailable Unavailable Richie Jordan MD Unavailable Unavailable Richie Jordan MD Unavailable Unavailable Richie Jordan MD Unavailable Unavailable Fons, M Deanna STATE FEDERAL RELATIONS DEPUTY DIRECTOR Unavailable Unavailable Fons, M Deanna STATE FEDERAL RELATIONS DEPUTY DIRECTOR Unavailable Unavailable Fons, M Deanna STATE FEDERAL RELATIONS DEPUTY DIRECTOR Unavailable Unavailable Fons, M Deanna STATE FEDERAL RELATIONS DEPUTY DIRECTOR Unavailable Unavailable Fons, M Deanna STATE FEDERAL RELATIONS DEPUTY DIRECTOR Unavailable Unavailable Fons, M Deanna STATE FEDERAL RELATIONS DEPUTY DIRECTOR Unavailable Unavailable Fons, M Deanna STATE FEDERAL RELATIONS DEPUTY DIRECTOR Unavailable Unavailable Fons, M Deanna STATE FEDERAL RELATIONS DEPUTY DIRECTOR Unavailable Unavailable Fons, M Deanna STATE FEDERAL RELATIONS DEPUTY DIRECTOR Unavailable Unavailable Fons, M Deanna STATE FEDERAL RELATIONS DEPUTY DIRECTOR Unavailable Unavailable Fons, M Deanna STATE FEDERAL RELATIONS DEPUTY DIRECTOR Unavailable Unavailable Fons, M Deanna STATE FEDERAL RELATIONS DEPUTY DIRECTOR Unavailable Unavailable Fons, M Deanna STATE FEDERAL RELATIONS DEPUTY DIRECTOR Unavailable Unavailable Fons, M Deanna STATE FEDERAL RELATIONS DEPUTY DIRECTOR Unavailable Unavailable Fons, M Deanna STATE FEDERAL RELATIONS DEPUTY DIRECTOR Unavailable Unavailable Fons, M Deanna STATE FEDERAL RELATIONS DEPUTY DIRECTOR Unavailable Unavailable Fons, M Deanna STATE FEDERAL RELATIONS DEPUTY DIRECTOR Unavailable Unavailable Fons, M Deanna STATE FEDERAL RELATIONS DEPUTY DIRECTOR Unavailable Unavailable Fons, M Deanna STATE FEDERAL RELATIONS DEPUTY DIRECTOR Unavailable Unavailable Fons, M Deanna STATE FEDERAL RELATIONS DEPUTY DIRECTOR Unavailable Unavailable Fons, M Deanna STATE FEDERAL RELATIONS DEPUTY DIRECTOR Unavailable Unavailable Fons, M Deanna STATE FEDERAL RELATIONS DEPUTY DIRECTOR Unavailable Unavailable Fons, M Deanna STATE FEDERAL RELATIONS DEPUTY DIRECTOR Unavailable Unavailable Fons, M Deanna STATE FEDERAL RELATIONS DEPUTY DIRECTOR Unavailable Unavailable Fons, M Deanna STATE FEDERAL RELATIONS DEPUTY DIRECTOR Unavailable Unavailable Fons, M Deanna STATE FEDERAL RELATIONS DEPUTY DIRECTOR Unavailable Unavailable Fons, M Deanna STATE FEDERAL RELATIONS DEPUTY DIRECTOR Unavailable Unavailable Fons, M Deanna STATE FEDERAL RELATIONS DEPUTY DIRECTOR Unavailable Unavailable Fons, M Deanna STATE FEDERAL RELATIONS DEPUTY DIRECTOR Unavailable Unavailable Fons, M Deanna STATE FEDERAL RELATIONS DEPUTY DIRECTOR Unavailable Unavailable Fons, M Deanna STATE FEDERAL RELATIONS DEPUTY DIRECTOR Unavailable Unavailable Fons, M Deanna STATE FEDERAL RELATIONS DEPUTY DIRECTOR Unavailable Unavailable Fons, M Deanna STATE FEDERAL RELATIONS DEPUTY DIRECTOR Unavailable Unavailable Fons, M Deanna STATE FEDERAL RELATIONS DEPUTY DIRECTOR Unavailable Unavailable Fons, M Deanna STATE FEDERAL RELATIONS DEPUTY DIRECTOR Unavailable Unavailable Fons, M Deanna STATE FEDERAL RELATIONS DEPUTY DIRECTOR Unavailable Unavailable Fons, M Deanna STATE FEDERAL RELATIONS DEPUTY DIRECTOR Unavailable Unavailable Fons, M Deanna STATE FEDERAL RELATIONS DEPUTY DIRECTOR Unavailable Unavailable Fons, M Deanna STATE FEDERAL RELATIONS DEPUTY DIRECTOR Unavailable Unavailable Fons, M Deanna STATE FEDERAL RELATIONS DEPUTY DIRECTOR Unavailable Unavailable Fons, M Deanna STATE FEDERAL RELATIONS DEPUTY DIRECTOR Unavailable Unavailable Fons, M Deanna STATE FEDERAL RELATIONS DEPUTY DIRECTOR Unavailable Unavailable Fons, M Deanna STATE FEDERAL RELATIONS DEPUTY DIRECTOR Unavailable Unavailable Fons, M Deanna STATE FEDERAL RELATIONS DEPUTY DIRECTOR Unavailable Unavailable Fons, M Deanna STATE FEDERAL RELATIONS DEPUTY DIRECTOR Unavailable Unavailable Fons, M Deanna STATE FEDERAL RELATIONS DEPUTY DIRECTOR Unavailable Unavailable Fons, M Deanna STATE FEDERAL RELATIONS DEPUTY DIRECTOR Unavailable Unavailable Fons, M Deanna STATE FEDERAL RELATIONS DEPUTY DIRECTOR Unavailable Unavailable Fons, M Deanna STATE FEDERAL RELATIONS DEPUTY DIRECTOR Unavailable Unavailable Fons, M Deanna STATE FEDERAL RELATIONS DEPUTY DIRECTOR Unavailable Unavailable Fons, M Deanna STATE FEDERAL RELATIONS DEPUTY DIRECTOR Unavailable Unavailable Fons, M Deanna STATE FEDERAL RELATIONS DEPUTY DIRECTOR Unavailable Unavailable Fons, M Deanna STATE FEDERAL RELATIONS DEPUTY DIRECTOR Unavailable Unavailable Fons, M Deanna STATE FEDERAL RELATIONS DEPUTY DIRECTOR Unavailable Unavailable Fons, M Deanna STATE FEDERAL RELATIONS DEPUTY DIRECTOR Unavailable Unavailable Scordo, Eloisa HARRIS Unavailable Unavailable Scordo, M Vickie PA Unavailable Unavailable Scordo, M Vickie PA Unavailable Unavailable Scordo, M Vickie PA Unavailable Unavailable Scordo, M Vickie PA Unavailable Unavailable Scordo, M Vickie PA Unavailable Unavailable Scordo, M Vickie PA Unavailable Unavailable Scordo, M Vickie PA Unavailable Unavailable Scordo, M Vickie PA Unavailable Unavailable Scordo, M Vickie PA Unavailable Unavailable Scordo, M Vickie PA Unavailable Unavailable Scordo, M Vickie PA Unavailable Unavailable Scordo, M Vickie PA Unavailable Unavailable Scordo, M Vickie PA Unavailable Unavailable Scordo, M Vickie PA Unavailable Unavailable Scordo, M Vickie PA Unavailable Unavailable Scordo, M Vickie PA Unavailable Unavailable Scordo, M Vickie PA Unavailable Unavailable Scordo, M Vickie PA Unavailable Unavailable Scordo, M Vickie PA Unavailable Unavailable Scordo, M Vickie PA Unavailable Unavailable Scordo, M Vickie PA Unavailable Unavailable Scordo, M Vickie PA Unavailable Unavailable Scordo, M Vickie PA Unavailable Unavailable Scordo, M Vickie PA Unavailable Unavailable Scordo, M Vickie PA Unavailable Unavailable Scordo, M Vickie PA Unavailable Unavailable Scordo, M Vickie PA Unavailable Unavailable Scordo, M Vickie PA Unavailable Unavailable Scordo, M Vickie PA Unavailable Unavailable Scordo, M Vickie PA Unavailable Unavailable Scordo, M Vickie PA Unavailable Unavailable Scordo, M Vickie PA Unavailable Unavailable Scordo, M Vickie PA Unavailable Unavailable Scordo, M Vickie PA Unavailable Unavailable Scordo, M Vickie PA Unavailable Unavailable Scordo, M Vickie PA Unavailable Unavailable Scordo, M Vickie PA Unavailable Unavailable Scordo, M Vickie PA Unavailable Unavailable Scordo, M Vickie PA Unavailable Unavailable Scordo, M Vickie PA Unavailable Unavailable Scordo, M Vickie PA Unavailable Unavailable Scordo, M Vickie PA Unavailable Unavailable Mark Sampson MD Unavailable Unavailable Mark Sampson MD Unavailable Unavailable Mark Sampson MD Unavailable Unavailable Mark Sampson MD Unavailable Unavailable Mark Sampson MD Unavailable Unavailable Mark Sampson MD Unavailable Unavailable Mark Sampson MD Unavailable Unavailable Mark Sampson MD Unavailable Unavailable Mark Sampson MD Unavailable Unavailable Abriss, Mark Roblero MD Unavailable Unavailable Abriss, Mark Roblero MD Unavailable Unavailable Abriss, B Osbaldo OZUNA Unavailable Unavailable Abriss, B Osbaldo OZUNA Unavailable Unavailable Abriss, B Osbaldo OZUNA Unavailable Unavailable Abriss, B Osbaldo OZUNA Unavailable Unavailable Abriss, B Osbaldo OZUNA Unavailable Unavailable Abriss, Mark Roblero MD Unavailable Unavailable Abriss, Mark Roblero MD Unavailable Unavailable April Harden MD Unavailable Unavailable April Harden MD Unavailable Unavailable April Harden MD Unavailable Unavailable April Harden MD Unavailable Unavailable April Harden MD Unavailable Unavailable April Harden MD Unavailable Unavailable April Harden MD Unavailable Unavailable April Harden MD Unavailable Unavailable April Harden MD Unavailable Unavailable April Harden MD Unavailable Unavailable April Harden MD Unavailable Unavailable April Harden MD Unavailable Unavailable April Harden MD Unavailable Unavailable pAril Harden MD Unavailable Unavailable April Harden MD Unavailable Unavailable April Harden MD Unavailable Unavailable April Harden MD Unavailable Unavailable April Harden MD Unavailable Unavailable April Harden MD Unavailable Unavailable April Harden MD Unavailable Unavailable April Harden MD Unavailable Unavailable April Harden MD Unavailable Unavailable April Harden MD Unavailable Unavailable April Harden MD Unavailable Unavailable April Harden MD Unavailable Unavailable April Harden MD Unavailable Unavailable April Harden MD Unavailable Unavailable April Harden MD Unavailable Unavailable April Harden MD Unavailable Unavailable April Harden MD Unavailable Unavailable April Harden MD Unavailable Unavailable Dixie, V KIMBERLY PA-C Unavailable Unavailable Dixie, V KIMBERLY PA-C Unavailable Unavailable Dixie, V KIMBERLY PA-C Unavailable Unavailable Aminata, V KIMBERLY PA-C Unavailable Unavailable Dixie, V KIMBERLY PA-C Unavailable Unavailable Dixie, V KIMBERLY PA-C Unavailable Unavailable Dixie, V KIMBERLY PA-C Unavailable Unavailable SEARS, A RICH DO Unavailable Unavailable SEARS, A RICH DO Unavailable Unavailable SEARS, A RICH DO Unavailable Unavailable SEARS, A RICH DO Unavailable Unavailable SEARS, A RICH DO Unavailable Unavailable SEARS, A RICH DO Unavailable Unavailable SEARS, A RICH DO Unavailable Unavailable SEARS, A RICH DO Unavailable Unavailable SEARS, A RICH DO Unavailable Unavailable SEARS, A RICH DO Unavailable Unavailable SEARS, A RICH DO Unavailable Unavailable SEARS, A RICH DO Unavailable Unavailable SEARS, A RICH DO Unavailable Unavailable SEARS, A RICH DO Unavailable Unavailable SEARS, A RICH DO Unavailable Unavailable SEARS, A RICH DO Unavailable Unavailable SEARS, A RICH DO Unavailable Unavailable SEARS, A RICH DO Unavailable Unavailable SEARS, A RICH DO Unavailable Unavailable SEARS, A RICH DO Unavailable Unavailable SEARS, A RICH DO Unavailable Unavailable SEARS, A RICH DO Unavailable Unavailable SEARS, A RICH DO Unavailable Unavailable SEARS, A RICH DO Unavailable Unavailable SEARS, A RICH DO Unavailable Unavailable SEARS, A RICH DO Unavailable Unavailable SEARS, A RICH DO Unavailable Unavailable SEARS, A RICH DO Unavailable Unavailable SEARS, A RICH DO Unavailable Unavailable SEARS, A RICH DO Unavailable Unavailable SEARS, A RICH DO Unavailable Unavailable SEARS, A RICH DO Unavailable Unavailable SEARS, A RICH DO Unavailable Unavailable SEARS, A RICH DO Unavailable Unavailable SEARS, A RICH DO Unavailable Unavailable SEARS, A RICH DO Unavailable Unavailable SEARS, A RICH DO Unavailable Unavailable SEARS, A RICH DO Unavailable Unavailable SEARS, A RICH DO Unavailable Unavailable SEARS, A RICH DO Unavailable Unavailable SEARS, A RICH DO Unavailable Unavailable SEARS, A RICH DO Unavailable Unavailable SEARS, A RICH DO Unavailable Unavailable SEARS, A RICH DO Unavailable Unavailable SEARS, A RICH DO Unavailable Unavailable SEARS, A RICH DO Unavailable Unavailable Morales, L Reanna PA Unavailable Unavailable Morales, L Reanna PA Unavailable Unavailable Morales, L Reanna PA Unavailable Unavailable Morales, L Reanna PA Unavailable Unavailable Morales, L Reanna PA Unavailable Unavailable Morales, L Reanna PA Unavailable Unavailable Morales, L Reanna PA Unavailable Unavailable Morales, L Reanna PA Unavailable Unavailable Morales, L Reanna PA Unavailable Unavailable Morales, L Reanna PA Unavailable Unavailable Morales, L Reanna PA Unavailable Unavailable Morales, L Reanna PA Unavailable Unavailable Morales, L Reanna PA Unavailable Unavailable Morales, L Reanna PA Unavailable Unavailable Morales, L Reanna PA Unavailable Unavailable Morales, L Reanna PA Unavailable Unavailable Morales, L Reanna PA Unavailable Unavailable Morales, L Reanna PA Unavailable Unavailable Morales, L Reanna PA Unavailable Unavailable Morales, L Raenna PA Unavailable Unavailable Morales, L Reanna PA Unavailable Unavailable Morales, L Reanna PA Unavailable Unavailable Morales, L Reanna PA Unavailable Unavailable Morales, L Reanna PA Unavailable Unavailable Morales, L Reanna PA Unavailable Unavailable Morales, L Reanna PA Unavailable Unavailable Morales, L Reanna PA Unavailable Unavailable Morales, L Reanna PA Unavailable Unavailable Morales, L Reanna PA Unavailable Unavailable Morales, L Reanna PA Unavailable Unavailable Morales, L Reanna PA Unavailable Unavailable Morales, L Reanna PA Unavailable Unavailable Morales, L Reanna PA Unavailable Unavailable Morales, L Reanna PA Unavailable Unavailable Morales, L Reanna PA Unavailable Unavailable Morales, L Reanna PA Unavailable Unavailable OBEN, T CARY MD Unavailable Unavailable OBEN, T CARY MD Unavailable Unavailable OBEN, T CARY MD Unavailable Unavailable OBEN, T CARY MD Unavailable Unavailable OBEN, T CARY MD Unavailable Unavailable OBEN, T CARY MD Unavailable Unavailable OBEN, T CARY MD Unavailable Unavailable OBEN, T CARY MD Unavailable Unavailable OBEN, T CARY MD Unavailable Unavailable OBEN, T CARY MD Unavailable Unavailable OBEN, T CARY MD Unavailable Unavailable OBEN, T CARY MD Unavailable Unavailable OBEN, T CARY MD Unavailable Unavailable OBEN, T CARY MD Unavailable Unavailable OBEN, T CARY MD Unavailable Unavailable OBEN, T CARY MD Unavailable Unavailable OBEN, T CARY MD Unavailable Unavailable OBEN, T CARY MD Unavailable Unavailable OBEN, T CARY MD Unavailable Unavailable OBEN, T CARY MD Unavailable Unavailable OBEN, T CARY MD Unavailable Unavailable OBEN, T CARY MD Unavailable Unavailable OBEN, T CARY MD Unavailable Unavailable OBEN, T CARY MD Unavailable Unavailable OBEN, T CARY MD Unavailable Unavailable OBEN, T CARY MD Unavailable Unavailable OBEN, T CARY MD Unavailable Unavailable OBEN, T CARY MD Unavailable Unavailable OBEN, T CARY MD Unavailable Unavailable OBEN, T CARY MD Unavailable Unavailable OBEN, T CARY MD Unavailable Unavailable OBEN, T CARY MD Unavailable Unavailable OBEN, T CARY MD Unavailable Unavailable OBEN, T CARY MD Unavailable Unavailable OBEN, T CARY MD Unavailable Unavailable OBEN, T CARY MD Unavailable Unavailable OBEN, T CARY MD Unavailable Unavailable OBEN, T CARY MD Unavailable Unavailable OBEN, T CARY MD Unavailable Unavailable OBEN, T CARY MD Unavailable Unavailable OBEN, T CARY MD Unavailable Unavailable OBEN, T ACRY MD Unavailable Unavailable OBEN, T CARY MD Unavailable Unavailable OBEN, T CARY MD Unavailable Unavailable OBEN, T CARY MD Unavailable Unavailable OBEN, T CARY MD Unavailable Unavailable OBEN, T CARY MD Unavailable Unavailable OBEN, T CARY MD Unavailable Unavailable OBEN, T CARY MD Unavailable Unavailable OBEN, T CARY MD Unavailable Unavailable OBEN, T CARY MD Unavailable Unavailable OBEN, T CARY MD Unavailable Unavailable OBEN, T CARY MD Unavailable Unavailable Bartoszewski, Lindsay Angelica MS, RPA-C Unavailable Unav ailable Bartoszewski, Lindsay Angelica MS, RPA-C Unavailable Unav ailable Bartoszewski, Lindsay Angelica MS, RPA-C Unavailable Unav ailable Bartoszewski, Lindsay Angelica MS, RPA-C Unavailable Unav ailable Bartoszewski, Lindsay Angelica MS, RPA-C Unavailable Unav ailable Bartoszewski, Lindsay Angelica MS, RPA-C Unavailable Unav ailable Bartoszewski, Lindsay Angelica MS, RPA-C Unavailable Unav ailable Bartoszewski, Lindsay Angelica MS, RPA-C Unavailable Unav ailable Bartoszewski, Lindsay Angelica MS, RPA-C Unavailable Unav ailable Bartoszewski, Lindsay Angelica MS, RPA-C Unavailable Unav ailable Bartoszewski, Lindsay Angelica MS, RPA-C Unavailable Unav ailable Bartoszewski, Lindsay Angelica MS, RPA-C Unavailable Unav ailable Bartoszewski, Lindsay Angelica MS, RPA-C Unavailable Unav ailable Bartoszewski, Lindsay Angelica MS, RPA-C Unavailable Unav ailable Bartoszewski, Lindsay Angelica MS, RPA-C Unavailable Unav ailable Bartoszewski, Lindsay Angelica MS, RPA-C Unavailable Unav ailable Bartoszewski, Lindsay Angelica MS, RPA-C Unavailable Unav ailable Bartoszewski, Lindsay Angelica MS, RPA-C Unavailable Unav ailable Bartoszewski, Lindsay Angelica MS, RPA-C Unavailable Unav ailable Bartoszewski, Lindsay Angelica MS, RPA-C Unavailable Unav ailable Bartoszewski, Lindsay Angelica MS, RPA-C Unavailable Unav ailable Bartoszewski, Lindsay Angelica MS, RPA-C Unavailable Unav ailable Bartoszewski, Lindsay Angelica MS, RPA-C Unavailable Unav ailable Bartoszewski, Lindsay Angelica MS, RPA-C Unavailable Unav ailable Bartoszewski, Lindsay Angelica MS, RPA-C Unavailable Unav ailable Bartoszewski, Lindsay Angelica MS, RPA-C Unavailable Unav ailable Bartoszewski, Lindsay Angelica MS, RPA-C Unavailable Unav ailable Bartoszewski, Lindsay Angelica MS, RPA-C Unavailable Unav ailable Bartoszewski, Lindsay Angelica MS, RPA-C Unavailable Unav ailable MAKDELMY MD Unavailable Unavailable MAK, DELMY OZUNA Unavailable Unavailable MAK, DELMY OZNUA Unavailable Unavailable MAK, DELMY OZUNA Unavailable Unavailable MAK, DELMY OZUNA Unavailable Unavailable MAK, DELMY MD Unavailable Unavailable MAK, DELMY MD Unavailable Unavailable MAK, DELMY OZUNA Unavailable Unavailable MAK, DELMY MD Unavailable Unavailable MAK, DELMY OZUNA Unavailable Unavailable MAK, DELMY MD Unavailable Unavailable MAK, DELYM OZUNA Unavailable Unavailable MAK, DELMY OZUNA Unavailable Unavailable MAK, DELMY MD Unavailable Unavailable MAK, DELMY OZUNA Unavailable Unavailable MAK, DELMY OZUNA Unavailable Unavailable MAK, DELMY MD Unavailable Unavailable MAK, DELMY MD Unavailable Unavailable MAK, DELMY MD Unavailable Unavailable MAK, DELMY MD Unavailable Unavailable MAK, DELMY OZUNA Unavailable Unavailable MAK, DELMY OZUNA Unavailable Unavailable MAK, DELMY OZUNA Unavailable Unavailable MAK, DELMY OZUNA Unavailable Unavailable MAK, DELMY OZUNA Unavailable Unavailable MAK, DELMY OZUNA Unavailable Unavailable MAK, DELMY OZUNA Unavailable Unavailable MAK, DELMY OZUNA Unavailable Unavailable MAK, DELMY OZUNA Unavailable Unavailable MAK, DELMY OZUNA Unavailable Unavailable MAK, DELMY MD Unavailable Unavailable MAK, DELMY OZUNA Unavailable Unavailable MAK, DELMY OZUNA Unavailable Unavailable MAK, DELMY MD Unavailable Unavailable MAK, DELMY MD Unavailable Unavailable MAK, DELMY MD Unavailable Unavailable MAK, DELMY MD Unavailable Unavailable MAK, DELMY MD Unavailable Unavailable MAK, DELMY MD Unavailable Unavailable MAK, DELMY MD Unavailable Unavailable MAK, DELMY MD Unavailable Unavailable MAK, DELMY MD Unavailable Unavailable MAK, DELMY MD Unavailable Unavailable MAK, DELMY MD Unavailable Unavailable MAK, DELMY MD Unavailable Unavailable MAK, DELMY MD Unavailable Unavailable MKA, DELMY MD Unavailable Unavailable MAK, DELMY MD Unavailable Unavailable MAK, DELMY MD Unavailable Unavailable MAK, DELMY MD Unavailable Unavailable MAK, DELMY MD Unavailable Unavailable MAK, DELMY MD Unavailable Unavailable MAK, DELMY MD Unavailable Unavailable MAK, DELMY MD Unavailable Unavailable MAK, DELMY MD Unavailable Unavailable MAK, DELMY MD Unavailable Unavailable MAK, DELMY MD Unavailable Unavailable MAK, DELMY MD Unavailable Unavailable MAK, DELMY MD Unavailable Unavailable MAK, DELMY MD Unavailable Unavailable MAK, DELMY MD Unavailable Unavailable MAK, DELMY MD Unavailable Unavailable MAK, DELMY MD Unavailable Unavailable MAK, DELMY MD Unavailable Unavailable MAK, DELMY MD Unavailable Unavailable MAK, DELMY MD Unavailable Unavailable MAK, DELMY MD Unavailable Unavailable MAK, DELMY MD Unavailable Unavailable MAK, DELMY MD Unavailable Unavailable Lizzie Mckay MD Unavailable Unavailable Lizzie Mckay MD Unavailable Unavailable Lizzie Mckay MD Unavailable Unavailable Lizzie Mckay MD Unavailable Unavailable Lizzie Mckay MD Unavailable Unavailable Lizzie Mckay MD Unavailable Unavailable Lizzie Mckay MD Unavailable Unavailable Lizzie Mckay MD Unavailable Unavailable Lizzie Mckay MD Unavailable Unavailable Lizzie Mckay MD Unavailable Unavailable Lizzie Mckay MD Unavailable Unavailable Lizzie Mckay MD Unavailable Unavailable Lizzie Mckay MD Unavailable Unavailable Lizzie Mckay MD Unavailable Unavailable Lizzie Mckay MD Unavailable Unavailable Lizzie Mckay MD Unavailable Unavailable Lizzie Mckay MD Unavailable Unavailable Lizzie Mckay MD Unavailable Unavailable Lizzie Mckay MD Unavailable Unavailable Lizzie Mckay MD Unavailable Unavailable Lizzie Mckay MD Unavailable Unavailable Lizzie Mckay MD Unavailable Unavailable Lizzie Mckay MD Unavailable Unavailable Lizzie Mckay MD Unavailable Unavailable Lizzie Mckay MD Unavailable Unavailable Lizzie Mckay MD Unavailable Unavailable Lizzie Mckay MD Unavailable Unavailable Lizzie Mckay MD Unavailable Unavailable Lizzie Mckay MD Unavailable Unavailable Lizzie Mckay MD Unavailable Unavailable Lizzie Mckay MD Unavailable Unavailable Lizzie Mckay MD Unavailable Unavailable Lizzie Mckay MD Unavailable Unavailable Lizzie Mckay MD Unavailable Unavailable Lizzie Mckay MD Unavailable Unavailable Lizzie Mckay MD Unavailable Unavailable Lizzie Mckay MD Unavailable Unavailable Lizzie Mckay MD Unavailable Unavailable Lizzie Mckay MD Unavailable Unavailable Lizzie Mckay MD Unavailable Unavailable Lizzie Mckay MD Unavailable Unavailable Lizzie Mckay MD Unavailable Unavailable Lizzie Mckay MD Unavailable Unavailable Lizzie Mckay MD Unavailable Unavailable Lizzie Mckay MD Unavailable Unavailable Lizzie Mckay MD Unavailable Unavailable Lizzie Mckay MD Unavailable Unavailable Lizzie Mckay MD Unavailable Unavailable Lizzie Mckay MD Unavailable Unavailable Lizzie Mckay MD Unavailable Unavailable Lizzie Mckay MD Unavailable Unavailable Lizzie Mckay MD Unavailable Unavailable Lizzie Mckay MD Unavailable Unavailable Lizzie Mckay MD Unavailable Unavailable Lizzie Mckay MD Unavailable Unavailable Lizzie Mckay MD Unavailable Unavailable Lizzie Mckay MD Unavailable Unavailable Lizzie Mckay MD Unavailable Unavailable Lizzie Mckay MD Unavailable Unavailable Lizzie Mckay MD Unavailable Unavailable Lizzie Mckay MD Unavailable Unavailable Lizzie Mckay MD Unavailable Unavailable Lizzie Mckay MD Unavailable Unavailable Lizzie Mckay MD Unavailable Unavailable Lizzie Mckay MD Unavailable Unavailable Lizzie Mckay MD Unavailable Unavailable Alexandre Peralta MD Unavailable Unavailable Alexandre Peralta MD Unavailable Unavailable Alexandre Peralta MD Unavailable Unavailable Alexandre Peralta MD Unavailable Unavailable Alexandre Peralta MD Unavailable Unavailable Alexandre Peralta MD Unavailable Unavailable Alexandre Peralta MD Unavailable Unavailable Alexandre Peralta MD Unavailable Unavailable Alexandre Peralta MD Unavailable Unavailable Alexandre Peralta MD Unavailable Unavailable Alexandre Peralta MD Unavailable Unavailable Alexandre Peralta MD Unavailable Unavailable Alexandre Peralta MD Unavailable Unavailable Alexandre Peralta MD Unavailable Unavailable Alexandre Peralta MD Unavailable Unavailable Alexandre Peralta MD Unavailable Unavailable Alexandre Peralta MD Unavailable Unavailable Alexandre Peralta MD Unavailable Unavailable Alexandre Peralta MD Unavailable Unavailable Alexandre Peralta MD Unavailable Unavailable Alexandre Peralta MD Unavailable Unavailable Alexandre Peralta MD Unavailable Unavailable Alexandre Peralta MD Unavailable Unavailable Alexandre Peralta MD Unavailable Unavailable Alexandre Peralta MD Unavailable Unavailable Alexandre Peralta MD Unavailable Unavailable Alexandre Peralta MD Unavailable Unavailable Alexandre Peralta MD Unavailable Unavailable Alexandre Peralta MD Unavailable Unavailable Alexandre Peralta MD Unavailable Unavailable Alexandre Peralta MD Unavailable Unavailable Alexandre Peralta MD Unavailable Unavailable Alexandre Peralta MD Unavailable Unavailable Alexandre Peralta MD Unavailable Unavailable Alexandre Peralta MD Unavailable Unavailable Alexandre Peralta MD Unavailable Unavailable Alexandre Peralta MD Unavailable Unavailable Alexandre Peralta MD Unavailable Unavailable Alexandre Peralta MD Unavailable Unavailable Alexandre Peralta MD Unavailable Unavailable Alexandre Peralta MD Unavailable Unavailable Alexandre Peralta MD Unavailable Unavailable Alexandre Peralta MD Unavailable Unavailable Alexandre Perlata MD Unavailable Unavailable Alexandre Peralta MD Unavailable Unavailable Alexandre Peralta MD Unavailable Unavailable Alexandre Peralta MD Unavailable Unavailable Alexandre Peralta MD Unavailable Unavailable Alexandre Peralta MD Unavailable Unavailable Alexandre Peralta MD Unavailable Unavailable Alexandre Peralta MD Unavailable Unavailable Alexandre Peralta MD Unavailable Unavailable Alexandre Peralta MD Unavailable Unavailable Alexandre Peralta MD Unavailable Unavailable Alexandre Peralta MD Unavailable Unavailable Alexandre Peralta MD Unavailable Unavailable Alexandre Peralta MD Unavailable Unavailable Alexandre Peralta MD Unavailable Unavailable Alexandre Peralta MD Unavailable Unavailable Alexandre Peralta MD Unavailable Unavailable Alexandre Peralta MD Unavailable Unavailable Alexandre Peralta MD Unavailable Unavailable Alexandre Peralta MD Unavailable Unavailable Alexandre Peralta MD Unavailable Unavailable Alexandre Peralta MD Unavailable Unavailable Alexandre Peralta MD Unavailable Unavailable Alexandre Peralta MD Unavailable Unavailable Alexandre Peralta MD Unavailable Unavailable Alexandre Peralta MD Unavailable Unavailable Alexandre Peralta MD Unavailable Unavailable Alexandre Peralta MD Unavailable Unavailable Alexandre Peralta MD Unavailable Unavailable Alexandre Peralta MD Unavailable Unavailable Alexandre Peralta MD Unavailable Unavailable Alexandre Peralta MD Unavailable Unavailable Alexandre Peralta MD Unavailable Unavailable AdamsonMikal harman MD Unavailable Unavailable AdamsonMikal MD Unavailable Unavailable AdamsonMikal MD Unavailable Unavailable AdamsonMikal harman MD Unavailable Unavailable AdamsonMikal MD Unavailable Unavailable AdamsonMikal harman MD Unavailable Unavailable AdamsonMikal harman MD Unavailable Unavailable AdamsonMikal harman MD Unavailable Unavailable AdamsonMikal MD Unavailable Unavailable AdamsonMikal MD Unavailable Unavailable AdamsonMikal MD Unavailable Unavailable AdamsonMikal MD Unavailable Unavailable AdamsonMikal MD Unavailable Unavailable AdamsonMikal MD Unavailable Unavailable AdamsonMikal MD Unavailable Unavailable AdamsonMikal MD Unavailable Unavailable AdamsonMikal MD Unavailable Unavailable AdamsonMikal harman MD Unavailable Unavailable AdamsonMikal MD Unavailable Unavailable AdamsonMikal MD Unavailable Unavailable AdamsonMikal MD Unavailable Unavailable AdamsonMikal MD Unavailable Unavailable AdamsonMikal harman MD Unavailable Unavailable AdamsonMikal harman MD Unavailable Unavailable AdamsonMikal harman MD Unavailable Unavailable AdamsonMikal MD Unavailable Unavailable AdamsonMikal MD Unavailable Unavailable AdamsonMikal MD Unavailable Unavailable Admason, L Elfego MD Unavailable Unavailable Adamson, L Elfego MD Unavailable Unavailable Adamson, L Elfego MD Unavailable Unavailable Adamson, L Elfego MD Unavailable Unavailable Adamson, L Elfego MD Unavailable Unavailable Adamson, L Elfego MD Unavailable Unavailable Adamson, L Elfego MD Unavailable Unavailable Adamson, L Elfego MD Unavailable Unavailable Adamson, L Elfego MD Unavailable Unavailable Adamson, L Elfego MD Unavailable Unavailable Adamson, L Elfego MD Unavailable Unavailable Adamson, L Elfego MD Unavailable Unavailable Adamson, L Elfego MD Unavailable Unavailable Adamson, L Elfego MD Unavailable Unavailable Adamson, L Elfego MD Unavailable Unavailable Adamson, L Elfego MD Unavailable Unavailable Adamson, L Elfego MD Unavailable Unavailable Adamson, L Elfego MD Unavailable Unavailable Adamson, L Elfego MD Unavailable Unavailable Adamson, L Elfego MD Unavailable Unavailable Re-disclosure Warning The records that you are about to access may contain information from federally-assisted alcohol or drug abuse programs. If such information is present, then the following federally mandated warning applies: This information has been disclosed to you from records protected by federal confidentiality rules (42 CFR part 2). The federal rules prohibit you from making any further disclosure of this information unless further disclosure is expressly permitted by the written consent of the person to whom it pertains or as otherwise permitted by 42 CFR part 2. A general authorization for the release of medical or other information is NOT sufficient for this purpose. The Federal rules restrict any use of the information to criminally investigate or prosecute any alcohol or drug abuse patient.The records that you are about to access may contain highly sensitive health information, the redisclosure of which is protected by Article 27-F of the [facility] Public Health law. If you continue you may have access to information: Regarding HIV / AIDS; Provided by facilities licensed or operated by the [facility] Office of Mental Health; or Provided by the [facility] Office for People With Developmental Disabilities. If such information is present, then the following [facility] mandated warning applies: This information has been disclosed to you from confidential records which are protected by state law. State law prohibits you from making any further disclosure of this information without the specific written consent of the person to whom it pertains, or as otherwise permitted by law. Any unauthorized further disclosure in violation of state law may result in a fine or intermediate sentence or both. A general authorization for the release of medical or other information is NOT sufficient authorization for further disc losure. Allergies and Adverse Reactions Type Description Substance Reaction Status Data Source(s ) Drug allergy Doxycycline Hyclate Doxycycline Rash Active eC W1 ([facility]) Drug allergy Permethrin Permethrin Rash Active eCW1 ([facility]) Drug allergy DOXYCYCLINE DOXYCYCLINE [facility] Family History Family Member Name Family Member Gender Family Member Status Date o f Status Description Data Source(s) Unknown Unknown Problem MEDENT ([facility]) Encounters Encounter Providers Location Date Indications Data Source(s ) Vickie Oro PA-C: [address], [place] [address], Ph. Attender: Vickie HARRIS [facility] Medical 01/17/2021 12:00:00 AM EST PETRA ([facility]) [place] [address] [facility] [address] 01/11/2021 12:00:00 AM EST eCW1 ([facility]) Office Visit Attender: Kate Peralta MD Main office - [facility] 12/28/2020 11:15:00 AM EST [facility] Vickie Oro PA-C: [address] [place] [address], Ph. Attender: Vickie H[facility]IS [facility] Medical 12/28/2020 12:00:00 AM EST PETRA ([facility]) Vickie Oro PA-C: [address] [place] [address], Ph. Attender: Vickie [facility] Medical 12/28/2020 12:00:00 AM EST PETRA ([facility]) Unknown [address] [facility] [address] 12/18/2020 12:00:00 AM EST eCW1 ([facility]) Unknown [address] [facility] [address] 12/11/2020 12:00:00 AM EST eCW1 ([facility]) Unknown [address] [facility] [address] 12/04/2020 12:00:00 AM EST eCW1 ([facility]) Unknown [address] [facility] [address] 12/04/2020 12:00:00 AM EST eCW1 ([facility]) Vickie Oro PA-C: [address] [place] [address], Ph. Attender: Vickie [facility] Medical 12/03/2020 12:00:00 AM EST PETRA ([facility]) Vickie Oro PA-C: [address] [place] [address], Ph. Attender: [facility]ie [facility] 12/03/2020 12:00:00 AM EST PETRA ([facility]) Unknown [address] [facility] [address] 12/03/2020 12:00:00 AM EST eCW1 [facility]) Vickie Oro PA-C: [address] [place] [address], Ph. Attender: Vickie [facility] Medical 12/03/2020 12:00:00 AM EST PETRA ([facility]) Unknown [address] [facility] [address] 12/03/2020 12:00:00 AM EST eCW1 ([facility]) Outpatient [address] [facility] [address] 11/27/2020 12:00:00 AM EST eCW1 ([facility]) Outpatient Attender: KIMBERLY [email or web address] 08:09:33 AM EST - 11/20/2020 10:07:37 AM EST [facility] Unknown [address] [facility] [address] 11/20/2020 12:00:00 AM EST eCW1 ([facility]) Unknown [address] [facility] [address] 11/19/2020 12:00:00 AM EST eCW1 ([facility]) Outpatient Attender: Kate Peralta MD Main office - [facility] 11/14/2020 12:00:00 PM EST MEDENT ([facility], ) Kerwin Jordan MD: [address] [place] [phone], Ph. Attender: Kerwin Jordan MD [facility] Medical 11/13/2020 12:00:00 AM EST PETRA ([facility]) Unknown [address] [facility] [address] 11/13/2020 12:00:00 AM EST eCW1 ([facility]) Kerwin Jordan MD: [address] [place] [phone], Ph. Attender: Kerwin Jordan MD [facility] Medical 11/13/2020 12:00:00 AM EST PETRA ([facility]) Kerwin Jordan MD: [address] [place] [phone], Ph. Attender: Kerwin Jordan MD [facility] Medical 11/13/2020 12:00:00 AM EST PETRA ([facility]) Unknown [address] [facility] [address] 11/12/2020 12:00:00 AM EST eCW1 ([facility]) Outpatient [address] [facility] [address] 11/12/2020 12:00:00 AM EST eCW1 ([facility]) Unknown [address] [facility] [address] 11/12/2020 12:00:00 AM EST eCW1 ([facility]) Unknown [address] [facility] [address] 11/08/2020 12:00:00 AM EST eCW1 ([facility]) Unknown [address] [facility] [address] 11/08/2020 12:00:00 AM EST eCW1 ([facility]) Vickie Oro PA-C: [address], [place] [address], Ph. Attender: Vickie [facility] Medical 11/07/2020 12:00:00 AM EST PETRA ([facility]) Vickie Oro PA-C: [address], [place] [address], Ph. Attender: Vickie [facility] Medical 11/07/2020 12:00:00 AM EST PETRA ([facility]) Vickie Oro PA-C: [address], [place] [address], Ph. Attender: Vickie [facility] Medical 11/07/2020 12:00:00 AM EST PETRA ([facility]) Vickie Oro PA-C: [address], [place] [address], Ph. Attender: Vickie [facility] Medical 11/07/2020 12:00:00 AM EST PETRA ([facility]) Unknown [address] [facility] [address] 11/05/2020 12:00:00 AM EST eCW1 ([facility]) Unknown [address] [facility] [address] 11/02/2020 12:00:00 AM EST eCW1 ([facility]) Unknown [address] [facility] [address] 11/01/2020 12:00:00 AM EST eCW1 ([facility]) Outpatient [address] [facility] [place] [address] 10/31/2020 12:00:00 AM EST eCW1 ([facility]) ( GYNANN) [facility] 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 Exam [address] [place] [address] 10/22/2020 12:00:00 AM EST eCW1 ([facility]) Unknown [address] [facility] [address] 10/15/2020 12:00:00 AM EST eCW1 ([facility]) Unknown [address] [facility] [address] 09/27/2020 12:00:00 AM EST eCW1 ([facility]) Office Visit, Est Pt., Level 4 PC [address] [place] [address] 09/26/2020 12:00:00 AM EST eCW1 ([facility]) Outpatient Attender: Elfego Adamson MD Physical Therapy 09/06/2020 0 8:30:00 AM EDT MEDENT ([facility]) [facility] Rheumatology [address] [place] [address] 06/26/2020 12:00:00 AM EDT eCW1 ([facility]) Outpatient Attender: RICH Canseco/Robyn/Amado/Reindl 06/18/2020 02:30:00 PM EDT MEDENT ([facility]) Outpatient Attender: Deanna JUNIOR [email or web address] 0 01:35:50 PM EDT - 06/13/2020 02:32:38 PM EDT [facility] Outpatient Attender: Osbaldo Zhang/Robyn/Amado/Re indl 04/27/2020 02:00:00 PM EDT MEDENT ([facility]) Outpatient Referrer: Jacob Mckay MD 04/24/2020 05:57:00 AM E DT [facility] Rheumatology [address] [place] [phone] 04/05/2020 12:00:00 AM EDT eCW1 ([facility]) [facility] Rheumatology [address] [place] [phone] 04/05/2020 12:00:00 AM EDT eCW1 ([facility]) [facility] Rheumatology Center [address] [place] [phone] 03/19/2020 12:00:00 AM EDT eCW1 ([facility]) Outpatient Referrer: Jacob Mckay MD 02/28/2020 06:02:00 AM E DT [facility] Outpatient Attender: Osbaldo Zhang/Robyn/Amado/Re indl 02/23/2020 09:00:00 AM EDT MEDENT ([facility]) Outpatient Referrer: Jacob Mckay MD 02/19/2020 10:53:00 AM E DT [facility] Outpatient Attender: RICH Canseco/Novice/Amado/Reindl 01/31/2020 01:00:00 PM EDT MEDENT ([facility]) Outpatient Attender: Osbaldo Zhang/Robyn/Amado/Re indl 01/27/2020 10:00:00 AM EST MEDENT ([facility]) [facility] Rheumatology [address] [place] [phone] 01/18/2020 12:00:00 AM EST eCW1 ([facility]) Outpatient Referrer: Jacob Mckay MD 01/04/2020 01:04:[address] [facility] Rheumatology [address] [place] [phone] 12/19/2019 12:00:00 AM EST eCW1 ([facility]) [facility] Rheumatology [address] [place] [phone] 12/19/2019 12:00:00 AM EST eCW1 ([facility]) Outpatient Attender: Linwood Harden MDRefer rer: Linwood Harden MDConsultant: Linwood Harden MD ES1-PC 12/14/2019 12:00:00 AM EST [facility] Outpatient Attender: Reanna HARRIS [email or web address] 12:00:00 AM EST [facility] Outpatient Referrer: Jacob Mckay MD 11/29/2019 07:45:00 PM E [facility] hospital Imaging [facility] Rheumatology Center [address] [place] [address] 11/29/2019 12:00:00 AM EST eCW1 ([facility]) Outpatient Attender: CARY GRANDA MDConsultant: DELMY MAK MD 11/25/2019 12:34:00 PM EST - 11/25/2019 12:34:00 PM EST [facility] Outpatient Attender: Angelica Goldberg MS, RPA-C [facility] 11/25/2019 12:00:00 PM EST MEDENT ([facility]) Immunizations Vaccine Date Status Description Data Source(s) Pneumococcal conjugate PCV 13 01/17/2021 10:51:00 AM EST complet ed .5 mL PETRA ([facility]) Medications Medication Brand Name Start Date Product Form Dose Route Admi nistrative Instructions Pharmacy Instructions Status Indications Reaction Description Data Source(s) duloxetine 60 MG Delayed Release Oral Ca psule duloxetine 60 mg capsule,delayed release TK 1 C PO QD duloxetine 60 mg capsule,delayed release TK 1 C PO QD 01/17/2021 12:00:00 AM EST completed duloxetine 60 MG Delayed Release Oral Capsule PETRA ([facility]) Estradiol 0.1 MG/ML Vaginal Cream Estradiol 0.1 MG/GM Estrad iol 0.1 MG/GM 01/14/2021 12:00:00 AM EST active Estradiol 0.1 MG/GM eCW1 ([facility]) Estradiol 0.1 MG/ML Vaginal Cream Estradiol 0.1 MG/GM Estrad iol 0.1 MG/GM 01/14/2021 12:00:00 AM EST active Estradiol 0.1 MG/GM eCW1 ([facility]) ropinirole 2 MG Oral Tablet Ropinirole HCL 01/02/2021 12:00:00 AM EST active MEDENT ([facility], ) 24 HR mirabegron 50 MG Extended Release Oral Tablet [M yrbetriq] Myrbetriq 50 MG Myrbetriq 50 MG 11/27/2020 12:00:00 AM EST 1.0 {tablet} active Myrbetriq 50 MG eCW1 ([facility]) 24 HR mirabegron 50 MG Extended Release Oral Tablet [M yrbetriq] Myrbetriq 50 MG Myrbetriq 50 MG 11/27/2020 12:00:00 AM EST 1.0 {tablet} active Myrbetriq 50 MG eCW1 ([facility]) 24 HR mirabegron 50 MG Extended Release Oral Tablet [M yrbetriq] Myrbetriq 50 MG Myrbetriq 50 MG 11/27/2020 12:00:00 AM EST 1.0 {tablet} active Myrbetriq 50 MG eCW1 ([facility]) 24 HR mirabegron 50 MG Extended Release Oral Tablet [M yrbetriq] Myrbetriq 50 MG Myrbetriq 50 MG 11/27/2020 12:00:00 AM EST 1.0 {tablet} active Myrbetriq 50 MG eCW1 ([facility]) 24 HR mirabegron 50 MG Extended Release Oral Tablet [M yrbetriq] Myrbetriq 50 MG Myrbetriq 50 MG 11/27/2020 12:00:00 AM EST 1.0 {tablet} active Myrbetriq 50 MG eCW1 ([facility]) 24 HR mirabegron 50 MG Extended Release Oral Tablet [M yrbetriq] Myrbetriq 50 MG Myrbetriq 50 MG 11/27/2020 12:00:00 AM EST 1.0 {tablet} active Myrbetriq 50 MG eCW1 ([facility]) 24 HR mirabegron 50 MG Extended Release Oral Tablet [M yrbetriq] Myrbetriq 50 MG Myrbetriq 50 MG 11/27/2020 12:00:00 AM EST 1.0 {tablet} active Myrbetriq 50 MG eCW1 ([facility]) 24 HR mirabegron 50 MG Extended Release Oral Tablet [M yrbetriq] Myrbetriq 50 MG Myrbetriq 50 MG 11/27/2020 12:00:00 AM EST 1.0 {tablet} active Myrbetriq 50 MG eCW1 ([facility]) 24 HR mirabegron 50 MG Extended Release Oral Tablet [M yrbetriq] Myrbetriq 50 MG Myrbetriq 50 MG 11/27/2020 12:00:00 AM EST 1.0 {tablet} active Myrbetriq 50 MG eCW1 ([facility]) tizanidine 2 MG Oral Tablet Tizanidine HCl 2 MG Tizanidine H Cl 2 MG 11/13/2020 12:00:00 AM EST 1.0 {tablet_as_needed} active Tizanidine HCl 2 MG eCW1 ([facility]) tizanidine 2 MG Oral Tablet Tizanidine HCl 2 MG Tizanidine H Cl 2 MG 11/13/2020 12:00:00 AM EST 1.0 {tablet_as_needed} active Tizanidine HCl 2 MG eCW1 ([facility]) tizanidine 2 MG Oral Tablet Tizanidine HCl 2 MG Tizanidine H Cl 2 MG 11/13/2020 12:00:00 AM EST 1.0 {tablet_as_needed} active Tizanidine HCl 2 MG eCW1 ([facility]) tizanidine 2 MG Oral Tablet Tizanidine HCl 2 MG Tizanidine H Cl 2 MG 11/13/2020 12:00:00 AM EST 1.0 {tablet_as_needed} active Tizanidine HCl 2 MG eCW1 ([facility]) tizanidine 2 MG Oral Tablet Tizanidine HCl 2 MG Tizanidine H Cl 2 MG 11/13/2020 12:00:00 AM EST 1.0 {tablet_as_needed} active Tizanidine HCl 2 MG eCW1 ([facility]) tizanidine 2 MG Oral Tablet Tizanidine HCl 2 MG Tizanidine H Cl 2 MG 11/13/2020 12:00:00 AM EST 1.0 {tablet_as_needed} active Tizanidine HCl 2 MG eCW1 ([facility]) tizanidine 2 MG Oral Tablet Tizanidine HCl 2 MG Tizanidine H Cl 2 MG 11/13/2020 12:00:00 AM EST 1.0 {tablet_as_needed} active Tizanidine HCl 2 MG eCW1 ([facility]) tizanidine 2 MG Oral Tablet Tizanidine HCl 2 MG Tizanidine H Cl 2 MG 11/13/2020 12:00:00 AM EST 1.0 {tablet_as_needed} active Tizanidine HCl 2 MG eCW1 ([facility]) tizanidine 2 MG Oral Tablet Tizanidine HCl 2 MG Tizanidine H Cl 2 MG 11/13/2020 12:00:00 AM EST 1.0 {tablet_as_needed} active Tizanidine HCl 2 MG eCW1 ([facility]) tizanidine 2 MG Oral Tablet Tizanidine HCl 2 MG Tizanidine H Cl 2 MG 11/13/2020 12:00:00 AM EST 1.0 {tablet_as_needed} active Tizanidine HCl 2 MG eCW1 ([facility]) tizanidine 2 MG Oral Tablet Tizanidine HCl 2 MG Tizanidine H Cl 2 MG 11/13/2020 12:00:00 AM EST 1.0 {tablet_as_needed} active Tizanidine HCl 2 MG eCW1 ([facility]) tizanidine 2 MG Oral Tablet Tizanidine HCl 2 MG Tizanidine H Cl 2 MG 11/13/2020 12:00:00 AM EST 1.0 {tablet_as_needed} active Tizanidine HCl 2 MG eCW1 ([facility] [facility]) tizanidine 2 MG Oral Tablet Tizanidine HCl 2 MG Tizanidine H Cl 2 MG 11/13/2020 12:00:00 AM EST 1.0 {tablet_as_needed} active Tizanidine HCl 2 MG eCW1 ([facility]) tizanidine 2 MG Oral Tablet Tizanidine HCl 2 MG Tizanidine H Cl 2 MG 11/13/2020 12:00:00 AM EST 1.0 {tablet_as_needed} active Tizanidine HCl 2 MG eCW1 ([facility]) tizanidine 2 MG Oral Tablet Tizanidine HCl 2 MG Tizanidine H Cl 2 MG 11/13/2020 12:00:00 AM EST 1.0 {tablet_as_needed} active Tizanidine HCl 2 MG eCW1 ([facility]) 12 HR Guaifenesin 600 MG Extended Releas e Oral Tablet [Mucinex] MUCINEX 600 MG 12 hr tablet MUCINEX 600 MG 12 hr tablet 11/13/2020 12:00:00 AM EST 600 mg Oral active Take 600 mg by mouth 2 (two) times a day [facility] pregabalin 75 MG Oral Capsule [Lyrica] Lyrica 75 MG Lyrica 7 5 MG 11/12/2020 12:00:00 AM EST 1.0 {capsule} active L yrica 75 MG eCW1 ([facility]) pregabalin 150 MG Oral Capsule [Lyrica] Lyrica 150 MG Lyrica 150 MG 11/12/2020 12:00:00 AM EST 1.0 {capsule} active L yrica 150 MG eCW1 ([facility]) pregabalin 100 MG Oral Capsule [Lyrica] Lyrica 100 MG Lyrica 100 MG 11/12/2020 12:00:00 AM EST 1.0 {capsule} active L yrica 100 MG eCW1 ([facility]) pregabalin 150 MG Oral Capsule [Lyrica] Lyrica 150 MG Lyrica 150 MG 11/12/2020 12:00:00 AM EST 1.0 {capsule} active L yrica 150 MG eCW1 ([facility]) pregabalin 150 MG Oral Capsule [Lyrica] Lyrica 150 MG Lyrica 150 MG 11/12/2020 12:00:00 AM EST 1.0 {capsule} active L yrica 150 MG eCW1 ([facility]) pregabalin 75 MG Oral Capsule [Lyrica] Lyrica 75 MG Lyrica 7 5 MG 11/12/2020 12:00:00 AM EST 1.0 {capsule} active L yrica 75 MG eCW1 ([facility]) pregabalin 100 MG Oral Capsule [Lyrica] Lyrica 100 MG Lyrica 100 MG 11/12/2020 12:00:00 AM EST 1.0 {capsule} active L yrica 100 MG eCW1 ([facility]) pregabalin 75 MG Oral Capsule [Lyrica] Lyrica 75 MG Lyrica 7 5 MG 11/12/2020 12:00:00 AM EST 1.0 {capsule} active L yrica 75 MG eCW1 ([facility]) pregabalin 150 MG Oral Capsule [Lyrica] Lyrica 150 MG Lyrica 150 MG 11/12/2020 12:00:00 AM EST 1.0 {capsule} active L yrica 150 MG eCW1 ([facility]) pregabalin 75 MG Oral Capsule [Lyrica] Lyrica 75 MG Lyrica 7 5 MG 11/12/2020 12:00:00 AM EST 1.0 {capsule} active L yrica 75 MG eCW1 ([facility]) pregabalin 150 MG Oral Capsule [Lyrica] Lyrica 150 MG Lyrica 150 MG 11/12/2020 12:00:00 AM EST 1.0 {capsule} active L yrica 150 MG eCW1 ([facility]) pregabalin 150 MG Oral Capsule [Lyrica] Lyrica 150 MG Lyrica 150 MG 11/12/2020 12:00:00 AM EST 1.0 {capsule} active L yrica 150 MG eCW1 ([facility]) pregabalin 150 MG Oral Capsule [Lyrica] Lyrica 150 MG Lyrica 150 MG 11/12/2020 12:00:00 AM EST 1.0 {capsule} active L yrica 150 MG eCW1 ([facility]) pregabalin 150 MG Oral Capsule [Lyrica] Lyrica 150 MG Lyrica 150 MG 11/12/2020 12:00:00 AM EST 1.0 {capsule} active L yrica 150 MG eCW1 ([facility]) pregabalin 150 MG Oral Capsule [Lyrica] Lyrica 150 MG Lyrica 150 MG 11/12/2020 12:00:00 AM EST 1.0 {capsule} active L yrica 150 MG eCW1 ([facility]) Acetaminophen 300 MG / Codeine Phosphate 30 MG Oral Tablet Acetaminophen-Codeine #3 300-30 MG Acetaminophen-Codeine #3 300-30 MG 11/02/2020 12:00:00 AM EST 1.0 {tablet_as_needed} active Acetamino phen-Codeine #3 300-30 MG eCW1 ([facility]) Acetaminophen 300 MG / Codeine Phosphate 30 MG Oral Tablet Acetaminophen-Codeine #3 300-30 MG Acetaminophen-Codeine #3 300-30 MG 11/02/2020 12:00:00 AM EST 1.0 {tablet_as_needed} active Acetamino phen-Codeine #3 300-30 MG eCW1 ([facility]) Acetaminophen 300 MG / Codeine Phosphate 30 MG Oral Tablet Acetaminophen-Codeine #3 300-30 MG Acetaminophen-Codeine #3 300-30 MG 11/02/2020 12:00:00 AM EST 1.0 {tablet_as_needed} active Acetamino phen-Codeine #3 300-30 MG eCW1 ([facility]) Acetaminophen 300 MG / Codeine Phosphate 30 MG Oral Tablet Acetaminophen-Codeine #3 300-30 MG Acetaminophen-Codeine #3 300-30 MG 11/02/2020 12:00:00 AM EST 1.0 {tablet_as_needed} active Acetamino phen-Codeine #3 300-30 MG eCW1 ([facility]) Acetaminophen 300 MG / Codeine Phosphate 30 MG Oral Tablet Acetaminophen-Codeine #3 300-30 MG Acetaminophen-Codeine #3 300-30 MG 11/02/2020 12:00:00 AM EST 1.0 {tablet_as_needed} suspended Acetami nophen-Codeine #3 300-30 MG eCW1 ([facility]) Acetaminophen 300 MG / Codeine Phosphate 30 MG Oral Tablet Acetaminophen-Codeine #3 300-30 MG Acetaminophen-Codeine #3 300-30 MG 11/02/2020 12:00:00 AM EST 1.0 {tablet_as_needed} active Acetamino phen-Codeine #3 300-30 MG eCW1 ([facility]) Acetaminophen 300 MG / Codeine Phosphate 30 MG Oral Tablet Acetaminophen-Codeine #3 300-30 MG Acetaminophen-Codeine #3 300-30 MG 11/02/2020 12:00:00 AM EST 1.0 {tablet_as_needed} active Acetamino phen-Codeine #3 300-30 MG eCW1 ([facility]) Acetaminophen 300 MG / Codeine Phosphate 30 MG Oral Tablet Acetaminophen-Codeine #3 300-30 MG Acetaminophen-Codeine #3 300-30 MG 11/02/2020 12:00:00 AM EST 1.0 {tablet_as_needed} active Acetamino phen-Codeine #3 300-30 MG eCW1 ([facility]) Acetaminophen 300 MG / Codeine Phosphate 30 MG Oral Tablet Acetaminophen-Codeine #3 300-30 MG Acetaminophen-Codeine #3 300-30 MG 11/02/2020 12:00:00 AM EST 1.0 {tablet_as_needed} active Acetamino phen-Codeine #3 300-30 MG eCW1 ([facility]) Acetaminophen 300 MG / Codeine Phosphate 30 MG Oral Tablet Acetaminophen-Codeine #3 300-30 MG Acetaminophen-Codeine #3 300-30 MG 11/02/2020 12:00:00 AM EST 1.0 {tablet_as_needed} active Acetamino phen-Codeine #3 300-30 MG eCW1 ([facility]) Acetaminophen 300 MG / Codeine Phosphate 30 MG Oral Tablet Acetaminophen-Codeine #3 300-30 MG Acetaminophen-Codeine #3 300-30 MG 11/02/2020 12:00:00 AM EST 1.0 {tablet_as_needed} active Acetamino phen-Codeine #3 300-30 MG eCW1 ([facility]) Acetaminophen 300 MG / Codeine Phosphate 30 MG Oral Tablet Acetaminophen-Codeine #3 300-30 MG Acetaminophen-Codeine #3 300-30 MG 11/02/2020 12:00:00 AM EST 1.0 {tablet_as_needed} active Acetamino phen-Codeine #3 300-30 MG eCW1 ([facility]) Acetaminophen 300 MG / Codeine Phosphate 30 MG Oral Tablet Acetaminophen-Codeine #3 300-30 MG Acetaminophen-Codeine #3 300-30 MG 11/02/2020 12:00:00 AM EST 1.0 {tablet_as_needed} active Acetamino phen-Codeine #3 300-30 MG eCW1 ([facility]) Acetaminophen 300 MG / Codeine Phosphate 30 MG Oral Tablet Acetaminophen-Codeine #3 300-30 MG Acetaminophen-Codeine #3 300-30 MG 11/02/2020 12:00:00 AM EST 1.0 {tablet_as_needed} active Acetamino phen-Codeine #3 300-30 MG eCW1 ([facility]) Acetaminophen 300 MG / Codeine Phosphate 30 MG Oral Tablet Acetaminophen-Codeine #3 300-30 MG Acetaminophen-Codeine #3 300-30 MG 11/02/2020 12:00:00 AM EST 1.0 {tablet_as_needed} active Acetamino phen-Codeine #3 300-30 MG eCW1 ([facility]) Acetaminophen 300 MG / Codeine Phosphate 30 MG Oral Tablet Acetaminophen-Codeine #3 300-30 MG Acetaminophen-Codeine #3 300-30 MG 11/02/2020 12:00:00 AM EST 1.0 {tablet_as_needed} suspended Acetami nophen-Codeine #3 300-30 MG eCW1 ([facility]) Acetaminophen 300 MG / Codeine Phosphate 30 MG Oral Tablet Acetaminophen-Codeine #3 300-30 MG Acetaminophen-Codeine #3 300-30 MG 11/02/2020 12:00:00 AM EST 1.0 {tablet_as_needed} active Acetamino phen-Codeine #3 300-30 MG eCW1 ([facility]) Acetaminophen 300 MG / Codeine Phosphate 30 MG Oral Tablet Acetaminophen-Codeine #3 300-30 MG Acetaminophen-Codeine #3 300-30 MG 11/02/2020 12:00:00 AM EST 1.0 {tablet_as_needed} active Acetamino phen-Codeine #3 300-30 MG eCW1 ([facility]) Acetaminophen 300 MG / Codeine Phosphate 30 MG Oral Tablet Acetaminophen-Codeine #3 300-30 MG Acetaminophen-Codeine #3 300-30 MG 11/02/2020 12:00:00 AM EST 1.0 {tablet_as_needed} active Acetamino phen-Codeine #3 300-30 MG eCW1 ([facility]) Acetaminophen 300 MG / Codeine Phosphate 30 MG Oral Tablet Acetaminophen-Codeine #3 300-30 MG Acetaminophen-Codeine #3 300-30 MG 11/02/2020 12:00:00 AM EST 1.0 {tablet_as_needed} active Acetamino phen-Codeine #3 300-30 MG eCW1 ([facility]) Acetaminophen 500 MG Oral Tablet Acetaminophen 500 MG 2019 12:00:00 AM EST 2.0 {tablet_as_needed} active A cetaminophen 500 MG eCW1 ([facility]) Acetaminophen 500 MG Oral Tablet Acetaminophen 500 MG 2019 12:00:00 AM EST 2.0 {tablet_as_needed} active A cetaminophen 500 MG eCW1 ([facility]) Acetaminophen 500 MG Oral Tablet Acetaminophen 500 MG 2019 12:00:00 AM EST 2.0 {tablet_as_needed} active A cetaminophen 500 MG eCW1 ([facility]) Acetaminophen 500 MG Oral Tablet Acetaminophen 500 MG 2019 12:00:00 AM EST 2.0 {tablet_as_needed} active A cetaminophen 500 MG eCW1 ([facility]) Acetaminophen 500 MG Oral Tablet Acetaminophen 500 MG 2019 12:00:00 AM EST 2.0 {tablet_as_needed} active A cetaminophen 500 MG eCW1 ([facility]) Acetaminophen 500 MG Oral Tablet Acetaminophen 500 MG 2019 12:00:00 AM EST 2.0 {tablet_as_needed} active A cetaminophen 500 MG eCW1 ([facility]) Acetaminophen 500 MG Oral Tablet Acetaminophen 500 MG 2019 12:00:00 AM EST 2.0 {tablet_as_needed} active A cetaminophen 500 MG eCW1 ([facility]) Acetaminophen 500 MG Oral Tablet Acetaminophen 500 MG 2019 12:00:00 AM EST 2.0 {tablet_as_needed} active A cetaminophen 500 MG eCW1 ([facility]) Acetaminophen 500 MG Oral Tablet Acetaminophen 500 MG 2019 12:00:00 AM EST 2.0 {tablet_as_needed} active A cetaminophen 500 MG eCW1 ([facility]) Acetaminophen 500 MG Oral Tablet Acetaminophen 500 MG 2019 12:00:00 AM EST 2.0 {tablet_as_needed} active A cetaminophen 500 MG eCW1 ([facility]) Acetaminophen 500 MG Oral Tablet Acetaminophen 500 MG 2019 12:00:00 AM EST 2.0 {tablet_as_needed} active A cetaminophen 500 MG eCW1 ([facility]) Acetaminophen 500 MG Oral Tablet Acetaminophen 500 MG 2019 12:00:00 AM EST 2.0 {tablet_as_needed} active A cetaminophen 500 MG eCW1 ([facility]) Acetaminophen 500 MG Oral Tablet Acetaminophen 500 MG 2019 12:00:00 AM EST 2.0 {tablet_as_needed} active A cetaminophen 500 MG eCW1 ([facility]) Acetaminophen 500 MG Oral Tablet Acetaminophen 500 MG 2019 12:00:00 AM EST 2.0 {tablet_as_needed} active A cetaminophen 500 MG eCW1 ([facility]) Acetaminophen 500 MG Oral Tablet Acetaminophen 500 MG 2019 12:00:00 AM EST 2.0 {tablet_as_needed} active A cetaminophen 500 MG eCW1 ([facility]) Acetaminophen 500 MG Oral Tablet Acetaminophen 500 MG 2019 12:00:00 AM EST 2.0 {tablet_as_needed} active A cetaminophen 500 MG eCW1 ([facility]) Acetaminophen 500 MG Oral Tablet Acetaminophen 500 MG 2019 12:00:00 AM EST 2.0 {tablet_as_needed} active A cetaminophen 500 MG eCW1 ([facility]) Acetaminophen 500 MG Oral Tablet Acetaminophen 500 MG 2019 12:00:00 AM EST 2.0 {tablet_as_needed} active A cetaminophen 500 MG eCW1 ([facility]) Acetaminophen 500 MG Oral Tablet Acetaminophen 500 MG 2019 12:00:00 AM EST 2.0 {tablet_as_needed} active A cetaminophen 500 MG eCW1 ([facility]) Acetaminophen 500 MG Oral Tablet Acetaminophen 500 MG 2019 12:00:00 AM EST 2.0 {tablet_as_needed} active A cetaminophen 500 MG eCW1 ([facility]) Acetaminophen 500 MG Oral Tablet Acetaminophen 500 MG 2019 12:00:00 AM EST 2.0 {tablet_as_needed} active A cetaminophen 500 MG eCW1 ([facility]) gabapentin 100 MG Oral Capsule Gabapentin 100 MG Gabapentin 100 MG 10/31/2020 12:00:00 AM EST 1.0 {capsule} active G abapentin 100 MG eCW1 ([facility]) gabapentin 100 MG Oral Capsule Gabapentin 100 MG Gabapentin 100 MG 10/31/2020 12:00:00 AM EST 1.0 {capsule} active G abapentin 100 MG eCW1 ([facility]) gabapentin 100 MG Oral Capsule Gabapentin 100 MG Gabapentin 100 MG 10/31/2020 12:00:00 AM EST 1.0 {capsule} active G abapentin 100 MG eCW1 ([facility]) gabapentin 100 MG Oral Capsule Gabapentin 100 MG Gabapentin 100 MG 10/31/2020 12:00:00 AM EST 1.0 {capsule} active G abapentin 100 MG eCW1 ([facility]) gabapentin 100 MG Oral Capsule Gabapentin 100 MG Gabapentin 100 MG 10/31/2020 12:00:00 AM EST 1.0 {capsule} active G abapentin 100 MG eCW1 ([facility]) gabapentin 100 MG Oral Capsule Gabapentin 100 MG Gabapentin 100 MG 10/31/2020 12:00:00 AM EST 1.0 {capsule} active G abapentin 100 MG eCW1 ([facility]) gabapentin 100 MG Oral Capsule gabapentin (NEURONTIN) 100 MG capsule gabapentin (NEURONTIN) 100 MG capsule 10/31/2020 12:00:00 AM EST 100 mg Oral active Take 100 mg by mouth 2 (two) times a day [facility] Ergocalciferol 21670 UNT Oral Capsule vi tamin D, Ergocalciferol, 1.25 MG (66033 UT) CAPS vitamin D, Ergocalciferol, 1.25 MG (42959 UT) CAPS 12:00:00 AM EST active TAKE 1 CAPSULE PO ONCE A WEEK [facility] Levothyroxine Sodium 0.15 MG Oral Tablet levothyroxine (SYNTHROID, LEVOTHROID) 150 MCG tablet levothyroxine (SYNTHROID, LEVOTHROID) 150 MCG tablet 1 12/19/2019 12:00:00 AM EST active TK 1 T P O D FOR HYPOTHYROIDISM [facility] Levothyroxine Sodium 0.2 MG Oral Tablet levothyroxine (SYNTHROID, LEVOTHROID) 200 MCG tablet levothyroxine (SYNTHROID, LEVOTHROID) 200 MCG tablet 1 12:00:00 AM EDT aborted TK 1 T PO QD [facility] Cyclobenzaprine hydrochloride 10 MG Oral Tablet Cyclobenzapr ine HCL 09/06/2020 12:00:00 AM EDT ORAL active M EDENT ([facility]) Diclofenac Sodium 75 MG Delayed Release Oral Tablet diclofenac (VOLTAREN) 75 MG EC tablet diclofenac (VOLTAREN) 75 MG EC tablet 08/16/2020 12:00:00 AM EDT active TK 1 T PO BID FOR 10 DAYS [facility] meloxicam 7.5 MG Oral Tablet meloxicam (MOBIC) 7.5 MG tablet meloxicam (MOBIC) 7.5 MG tablet 06/04/2020 12:00:00 AM EDT aborted TK 1 T PO BID [facility] 7 ACTUAT umeclidinium 0.0625 MG/ACTUAT D ry Powder Inhaler [Incruse] INCRUSE ELLIPTA 62.5 MCG/INH AEPB INCRUSE ELLIPTA 62.5 MCG/INH AEPB 06/04/2020 12:00:00 AM EDT active INL 1 PUFF PO QD [facility] 24 HR mirabegron 50 MG Extended Release Oral Tablet [Myrbetriq] MYRBETRIQ 50 MG TB24 MYRBETRIQ 50 MG TB24 06/04/2020 12:00:00 AM EDT active TK 1 T PO D [facility] ropinirole 2 MG Oral Tablet rOPINIRole (REQUIP) 2 MG t ablet rOPINIRole (REQUIP) 2 MG tablet 05/28/2020 12:00:00 AM EDT active TK 1 T PO HS [facility] Rosuvastatin calcium 10 MG Oral Tablet rosuvastatin (C RESTOR) 10 MG tablet rosuvastatin (CRESTOR) 10 MG tablet 05/28/2020 12:00:00 AM EDT aborted TK 1 T PO QD [facility] Cyclobenzaprine hydrochloride 10 MG Oral Tablet cyclobenzaprine (FLEXERIL) 10 MG tablet cyclobenzaprine (FLEXERIL) 10 MG tablet 04/23/2020 12:00:00 AM EDT active TK 1 T PO TID [facility] Prednisone 10 MG Oral Tablet PredniSONE 10 MG PredniSONE 10 MG 04/05/2020 12:00:00 AM EDT suspended Predn iSONE 10 MG eCW1 ([facility]) Prednisone 10 MG Oral Tablet PredniSONE 10 MG PredniSONE 10 MG 04/05/2020 12:00:00 AM EDT suspended Predn iSONE 10 MG eCW1 ([facility]) Prednisone 10 MG Oral Tablet PredniSONE 10 MG PredniSONE 10 MG 04/05/2020 12:00:00 AM EDT active PredniSO NE 10 MG eCW1 ([facility]) Prednisone 10 MG Oral Tablet PredniSONE 10 MG PredniSONE 10 MG 04/05/2020 12:00:00 AM EDT suspended Predn iSONE 10 MG eCW1 ([facility]) Prednisone 10 MG Oral Tablet PredniSONE 10 MG PredniSONE 10 MG 04/05/2020 12:00:00 AM EDT suspended Predn iSONE 10 MG eCW1 ([facility]) Prednisone 10 MG Oral Tablet PredniSONE 10 MG PredniSONE 10 MG 04/05/2020 12:00:00 AM EDT active PredniSO NE 10 MG eCW1 ([facility]) Prednisone 10 MG Oral Tablet PredniSONE 10 MG PredniSONE 10 MG 04/05/2020 12:00:00 AM EDT suspended Predn iSONE 10 MG eCW1 ([facility]) Prednisone 10 MG Oral Tablet PredniSONE 10 MG PredniSONE 10 MG 04/05/2020 12:00:00 AM EDT suspended Predn iSONE 10 MG eCW1 ([facility]) Prednisone 10 MG Oral Tablet PredniSONE 10 MG PredniSONE 10 MG 04/05/2020 12:00:00 AM EDT suspended Predn iSONE 10 MG eCW1 ([facility]) Prednisone 10 MG Oral Tablet PredniSONE 10 MG PredniSONE 10 MG 04/05/2020 12:00:00 AM EDT suspended Predn iSONE 10 MG eCW1 ([facility]) Prednisone 10 MG Oral Tablet PredniSONE 10 MG PredniSONE 10 MG 04/05/2020 12:00:00 AM EDT suspended Predn iSONE 10 MG eCW1 ([facility]) Prednisone 10 MG Oral Tablet PredniSONE 10 MG PredniSONE 10 MG 04/05/2020 12:00:00 AM EDT suspended Predn iSONE 10 MG eCW1 ([facility]) Prednisone 10 MG Oral Tablet PredniSONE 10 MG PredniSONE 10 MG 04/05/2020 12:00:00 AM EDT suspended Predn iSONE 10 MG eCW1 ([facility]) Prednisone 10 MG Oral Tablet PredniSONE 10 MG PredniSONE 10 MG 04/05/2020 12:00:00 AM EDT active 2 tablets daily for 3 days, 1 tablet daily for 3 days, 1/2 tab daily for 3 days then stop prn flare eCW1 ([facility]) Prednisone 10 MG Oral Tablet PredniSONE 10 MG PredniSONE 10 MG 04/05/2020 12:00:00 AM EDT active PredniSO NE 10 MG eCW1 ([facility]) Prednisone 10 MG Oral Tablet PredniSONE 10 MG PredniSONE 10 MG 04/05/2020 12:00:00 AM EDT suspended Predn iSONE 10 MG eCW1 ([facility]) Prednisone 10 MG Oral Tablet PredniSONE 10 MG PredniSONE 10 MG 04/05/2020 12:00:00 AM EDT suspended Predn iSONE 10 MG eCW1 ([facility]) Prednisone 10 MG Oral Tablet PredniSONE 10 MG PredniSONE 10 MG 04/05/2020 12:00:00 AM EDT active PredniSO NE 10 MG eCW1 ([facility]) Prednisone 10 MG Oral Tablet PredniSONE 10 MG PredniSONE 10 MG 04/05/2020 12:00:00 AM EDT active PredniSO NE 10 MG eCW1 ([facility]) Prednisone 10 MG Oral Tablet PredniSONE 10 MG PredniSONE 10 MG 04/05/2020 12:00:00 AM EDT suspended Predn iSONE 10 MG eCW1 ([facility]) Prednisone 10 MG Oral Tablet PredniSONE 10 MG PredniSONE 10 MG 04/05/2020 12:00:00 AM EDT suspended Predn iSONE 10 MG eCW1 ([facility]) Prednisone 10 MG Oral Tablet PredniSONE 10 MG PredniSONE 10 MG 04/05/2020 12:00:00 AM EDT suspended Predn iSONE 10 MG eCW1 ([facility]) Prednisone 10 MG Oral Tablet PredniSONE 10 MG PredniSONE 10 MG 04/05/2020 12:00:00 AM EDT active PredniSO NE 10 MG eCW1 ([facility]) Prednisone 10 MG Oral Tablet PredniSONE 10 MG PredniSONE 10 MG 04/05/2020 12:00:00 AM EDT suspended Predn iSONE 10 MG eCW1 ([facility]) Prednisone 10 MG Oral Tablet PredniSONE 10 MG PredniSONE 10 MG 04/05/2020 12:00:00 AM EDT suspended Predn iSONE 10 MG eCW1 ([facility]) Prednisone 10 MG Oral Tablet PredniSONE 10 MG PredniSONE 10 MG 04/05/2020 12:00:00 AM EDT suspended Predn iSONE 10 MG eCW1 ([facility]) Prednisone 10 MG Oral Tablet PredniSONE 10 MG PredniSONE 10 MG 04/05/2020 12:00:00 AM EDT active PredniSO NE 10 MG eCW1 ([facility]) Levothyroxine Sodium 0.125 MG Oral Table t levothyroxine (SYNTHROID, LEVOTHROID) 125 MCG tablet levothyroxine (SYNTHROID, LEVOTHROID) 125 MCG tablet 0 01/28/2020 12:00:00 AM EST aborted Hypothyroidism, unspecified type TAKE 1 TABLET(125 MCG) BY MOUTH DAILY [facility] Hypothyroidism, unspecified type Sulfasalazine 500 MG Oral Tablet sulfaSALAzine (AZULFI DINE) 500 MG tablet sulfaSALAzine (AZULFIDINE) 500 MG tablet 11/21/2019 12:00:00 AM EST active TK 1 T PO BID [facility] Levothyroxine Sodium 0.2 MG Oral Tablet levothyroxine 200 mcg tablet TK 1 T PO QD levothyroxine 200 mcg tablet TK 1 T PO QD completed levothyroxine sodium 0.2 MG Oral Tablet PETRA ([facility]) Acetaminophen 325 MG / Hydrocodone [place] trate 5 MG Oral Tablet hydrocodone 5 mg- acetaminophen 325 mg tablet hydrocodone 5 mg-acetaminophen 325 mg tablet completed acetaminophen 325 MG / hydrocodone bitartrate 5 MG Oral Tablet PETRA ([facility]) Cyclobenzaprine hydrochloride 10 MG Oral Tablet cyclobenzaprine 10 mg tablet TK 1 T PO TID PRN cyclobenzaprine 10 mg tablet TK 1 T PO TID PRN completed cyclobenzaprine hydrochloride 10 MG Oral Tablet PETRA ([facility]) Sulfasalazine 500 MG Oral Tablet sulfasalazine 500 mg tablet TK 2 TS PO BID sulfasalazine 500 mg tablet TK 2 TS PO BID completed sulfasalazine 500 MG Oral Tablet PETRA ([facility]) Sulfamethoxazole 800 MG / Trimethoprim 1 60 MG Oral Tablet sulfamethoxazole 800 mg-trimethoprim 160 mg tablet TK 1 T PO Q 12 H sulfamethoxazole 800 mg- trimethoprim 160 mg tablet TK 1 T PO Q 12 H completed sulfamethoxazole 800 MG / trimethoprim 160 MG Oral Tablet PETRA ([facility]) 24 HR Divalproex Sodium 500 MG Extended Release Oral Tablet divalproex ER 500 mg tablet,extended release 24 hr TK 1 T PO QD divalproex ER 500 mg tablet,extended release 24 hr TK 1 T PO QD completed 24 HR divalproex sodium 500 MG Extended Release Oral Tablet PETRA ([facility]) Amoxicillin 875 MG / Clavulanate 125 MG Oral Tablet amoxicillin 875 mg-potassium clavulanate 125 mg tablet TK 1 T PO BID amoxicillin 875 mg-potassium clavulanate 125 mg tablet TK 1 T PO BID completed amoxicillin 875 MG / clavulanate 125 MG Oral Tablet PETRA ([facility]) Levothyroxine Sodium 0.2 MG Oral Tablet levothyroxine 200 mcg tablet TK 1 T PO QD levothyroxine 200 mcg tablet TK 1 T PO QD completed levothyroxine sodium 0.2 MG Oral Tablet PETRA ([facility]) 24 HR Divalproex Sodium 500 MG Extended Release Oral Tablet divalproex (DEPAKOTE) 500 MG 24 hr tablet divalproex (DEPAKOTE) 500 MG 24 hr tablet 500 mg Oral aborted Take 500 mg by mouth [place] [facility] gabapentin 100 MG Oral Capsule gabapenti n 100 mg capsule TAKE 1 CAPSULE BY MOUTH THREE TIMES DAILY gabapentin 100 mg capsule TAKE 1 CAPSULE BY MOUTH THREE TIMES DAILY completed gabapentin 100 MG Oral Capsule [place] ([facility]) 24 HR Divalproex Sodium 500 MG Extended Release Oral Tablet divalproex ER 500 mg tablet,extended release 24 hr TK 1 T PO QD divalproex ER 500 mg tablet,extended release 24 hr TK 1 T PO QD completed 24 HR divalproex sodium 500 MG Extended Release Oral Tablet [place] ([facility]) prednisolone acetate 10 MG/ML Ophthalmic Suspension prednisolone acetate 1 % eye drops,suspension SW AND INSTILL 1 DROP INTO THE RIGHT EYE QID DIRECTED prednisolone acetate 1 % eye drops,suspension SW AND INSTILL 1 DROP INTO THE RIGHT EYE QID DIRECTED completed prednisolone acetate 10 MG/ML Ophthalmic Suspension [place] ([facility]) fluticasone furoate 0.1 MG/ACTUAT / ling nterol 0.025 MG/ACTUAT Dry Powder Inhaler Breo Ellipta 100 mcg-25 mcg/dose powder for inhalation INHALE 1 PUFF PO EVERY DAY Breo Ellipta 100 mcg-25 mcg/dose powder for inhalation INHALE 1 PUFF PO EVERY DAY completed f luticasone furoate 0.1 MG/ACTUAT / vilanterol 0.025 MG/ACTUAT Dry Powder Inhaler [place] ([facility]) Amoxicillin 875 MG / Clavulanate 125 MG Oral Tablet amoxicillin 875 mg-potassium clavulanate 125 mg tablet TK 1 T PO BID amoxicillin 875 mg-potassium clavulanate 125 mg tablet TK 1 T PO BID completed amoxicillin 875 MG / clavulanate 125 MG Oral Tablet [place] ([facility]) Prednisone 10 MG Oral Tablet prednisone 10 mg tablet TAKE 2 TABLET BY MOUTH FOR 3 DAYS 1 TABLET DAILY FOR 3 DAYS THEN 1/2 TABLET FOR 3 DAYS THEN STOP NEEDED FLARE ONCE A DAY prednisone 10 mg tablet TAKE 2 TABLET BY MOUTH FOR 3 DAYS 1 TABLET DAILY FOR 3 DAYS THEN 1/2 TABLET FOR 3 DAYS THEN STOP NEEDED FLARE ONCE A DAY completed prednisone 10 MG Oral Tablet [place] ([facility]) Acetaminophen 300 MG / Codeine Phosphate 30 MG Oral Tablet acetaminophen 300 mg- codeine 30 mg tablet TAKE 1 TABLET BY MOUTH EVERY 8 HOURS NEEDED FOR PAIN MAXIMUM DAILY DOSE IS 4 TABLETS acetaminophen 300 mg-codeine 30 mg table t TAKE 1 TABLET BY MOUTH EVERY 8 HOURS NEEDED FOR PAIN MAXIMUM DAILY DOSE IS 4 TABLETS completed acetam inophen 300 MG / codeine phosphate 30 MG Oral Tablet [place] ([facility]) 24 HR Divalproex Sodium 500 MG Extended Release Oral Tablet divalproex ER 500 mg tablet,extended release 24 hr TK 1 T PO QD divalproex ER 500 mg tablet,extended release 24 hr TK 1 T PO QD completed 24 HR divalproex sodium 500 MG Extended Release Oral Tablet [place] ([facility]) Cephalexin 500 MG Oral Capsule cephalexin 500 mg capsu le TK 1 C PO QID cephalexin 500 mg capsule TK 1 C PO QID completed cephalexin 500 MG Oral Capsule [place] ([facility]) Acetaminophen 300 MG / Codeine Phosphate 30 MG Oral Tablet acetaminophen 300 mg- codeine 30 mg tablet TAKE 1 TABLET BY MOUTH EVERY 8 HOURS NEEDED FOR PAIN MAXIMUM DAILY DOSE IS 4 TABLETS acetaminophen 300 mg-codeine 30 mg table t TAKE 1 TABLET BY MOUTH EVERY 8 HOURS NEEDED FOR PAIN MAXIMUM DAILY DOSE IS 4 TABLETS completed acetam inophen 300 MG / codeine phosphate 30 MG Oral Tablet [place] ([facility]) ropinirole 2 MG Oral Tablet ropinirole 2 mg tablet TK 1 T PO HS ropinirole 2 mg tablet TK 1 T PO HS completed ro pinirole 2 MG Oral Tablet [place] ([facility]) pregabalin 75 MG Oral Capsule pregabalin 75 mg capsule TAKE 1 CAPSULE BY MOUTH TWICE DAILY. MAXIMUM DAILY DOSE IS 2 CAPSULES pregabalin 75 mg capsule TAKE 1 CAPSULE BY MOUTH TWICE DAILY. MAXIMUM DAILY DOSE IS 2 CAPSULES completed pregabalin 75 MG Oral Capsule AT [facility] ([facility]) Diclofenac Sodium 0.01 MG/MG Topical Gel diclofenac 1 % topical gel DENG 2 GRAMS EXT AA QID FOR 10 DAYS PRF PAIN diclofenac 1 % topical gel DENG 2 GRAMS E XT AA QID FOR 10 DAYS PRF PAIN completed diclofenac sodium 0.01 MG/MG Topical Gel [place] ([facility]) Diclofenac Sodium 75 MG Delayed Release Oral Tablet diclofenac sodium 75 mg tablet,delayed release TK 1 T PO BID FOR 10 DAYS diclofenac sodium 75 mg tablet,delayed release TK 1 T PO BID FOR 10 DAYS completed diclofenac sodium 75 MG Delayed Release Oral Tablet [place] ([facility]) 24 HR Divalproex Sodium 500 MG Extended Release Oral Tablet divalproex ER 500 mg tablet,extended release 24 hr TK 1 T PO QD divalproex ER 500 mg tablet,extended release 24 hr TK 1 T PO QD completed 24 HR divalproex sodium 500 MG Extended Release Oral Tablet [place] ([facility]) Ergocalciferol 50363 UNT Oral Capsule er gocalciferol (vitamin D2) 1,250 mcg (50,000 unit) capsule TAKE 1 CAPSULE PO ONCE A WEEK ergocalciferol (vitamin D2) 1,250 mcg (50,000 unit) capsule TAKE 1 CAPSULE PO ONCE A WEEK completed ergocalciferol 1.25 MG Oral Caps ule [place] ([facility]) Acetaminophen 300 MG / Codeine Phosphate 30 MG Oral Tablet acetaminophen 300 mg- codeine 30 mg tablet TAKE 1 TABLET BY MOUTH EVERY 8 HOURS NEEDED FOR PAIN MAXIMUM DAILY DOSE IS 4 TABLETS acetaminophen 300 mg-codeine 30 mg table t TAKE 1 TABLET BY MOUTH EVERY 8 HOURS NEEDED FOR PAIN MAXIMUM DAILY DOSE IS 4 TABLETS completed acetam inophen 300 MG / codeine phosphate 30 MG Oral Tablet [place] ([facility]) Hydrocortisone 10 MG/ML / Neomycin 3.5 M G/ML / Polymyxin B 38589 UNT/ML Otic Suspension wlpfcuxi-ynoywbeil-fykphpoal 3.5 mg-10,000 unit/mL-1 % ear drops,susp INSTILL 3 DROPS INTO THE RIGHT EAR BID nldesxum-ooulipkrp-cjkpdyjol 3.5 mg- 10,000 unit/mL-1 % ear drops,susp INSTILL 3 DROPS INTO THE RIGHT EAR BID completed hydrocortisone 10 MG/ML / neomycin 3.5 MG/ML / polymyxin B 54702 UNT/ML Otic Suspension [place] ([facility]) duloxetine 60 MG Delayed Release Oral Ca psule duloxetine 60 mg capsule,delayed release TK 1 C PO QD duloxetine 60 mg capsule,delayed release TK 1 C PO QD completed duloxetine 60 MG Delay ed Release Oral Capsule [place] ([facility]) Naproxen 500 MG Oral Tablet naproxen 500 mg tablet TK 1 T PO Q 12 H FOR 10 DAYS naproxen 500 mg tablet TK 1 T PO Q 12 H FOR 10 DAYS completed naproxen 500 MG Oral Tablet [place] ([facility]) fluticasone furoate 0.1 MG/ACTUAT / ling nterol 0.025 MG/ACTUAT Dry Powder Inhaler Breo Ellipta 100 mcg-25 mcg/dose powder for inhalation INHALE 1 PUFF PO EVERY DAY Breo Ellipta 100 mcg-25 mcg/dose powder for inhalation INHALE 1 PUFF PO EVERY DAY completed f luticasone furoate 0.1 MG/ACTUAT / vilanterol 0.025 MG/ACTUAT Dry Powder Inhaler [place] ([facility]) prednisolone acetate 10 MG/ML Ophthalmic Suspension prednisolone acetate 1 % eye drops,suspension SW AND INSTILL 1 DROP INTO THE RIGHT EYE QID DIRECTED prednisolone acetate 1 % eye drops,suspension SW AND INSTILL 1 DROP INTO THE RIGHT EYE QID DIRECTED completed prednisolone acetate 10 MG/ML Ophthalmic Suspension [place] ([facility]) duloxetine 60 MG Delayed Release Oral Ca psule duloxetine 60 mg capsule,delayed release TK 1 C PO QD duloxetine 60 mg capsule,delayed release TK 1 C PO QD completed duloxetine 60 MG Delay ed Release Oral Capsule [place] ([facility]) Levothyroxine Sodium 0.125 MG Oral Tablet levothyroxin e 125 mcg tablet levothyroxine 125 mcg tablet completed levothyroxine sodium 0.125 MG Oral Tablet [place] ([facility]) Levothyroxine Sodium 0.2 MG Oral Tablet levothyroxine 200 mcg tablet TK 1 T PO QD levothyroxine 200 mcg tablet TK 1 T PO QD completed levothyroxine sodium 0.2 MG Oral Tablet [place] ([facility]) Acetaminophen 300 MG / Codeine Phosphate 30 MG Oral Tablet acetaminophen 300 mg- codeine 30 mg tablet TAKE 1 TABLET BY MOUTH EVERY 12 HOURS FOR 5 DAYS NEEDED FOR PAIN. MAXIMUM DAILY DOSE IS 2 TABLETS acetaminophen 300 mg-codeine 30 mg tablet TAKE 1 TABLET BY MOUTH EVERY 12 HOURS FOR 5 DAYS NEEDED FOR PAIN. MAXIMUM DAILY DOSE IS 2 TABLETS comple [place] acetaminophen 300 MG / codeine phosphate 30 MG Oral Tablet [place] ([facility]) gabapentin 100 MG Oral Capsule gabapenti n 100 mg capsule TAKE 1 CAPSULE BY MOUTH THREE TIMES DAILY gabapentin 100 mg capsule TAKE 1 CAPSULE BY MOUTH THREE TIMES DAILY completed gabapentin 100 MG Oral Capsule [place] ([facility]) Meclizine Hydrochloride 12.5 MG Oral Tab let meclizine 12.5 mg tablet TK 1 T PO TID meclizine 12.5 mg tablet TK 1 T PO TID completed meclizine hydrochloride 12.5 MG Oral Tablet [place] ([facility]) duloxetine 60 MG Delayed Release Oral Ca psule duloxetine 60 mg capsule,delayed release TK 1 C PO QD duloxetine 60 mg capsule,delayed release TK 1 C PO QD completed duloxetine 60 MG Delay ed Release Oral Capsule [place] ([facility]) Levothyroxine Sodium 0.112 MG Oral Table t levothyroxine 112 mcg tablet TK 1 T PO QD levothyroxine 112 mcg tablet TK 1 T PO QD completed levothyroxine sodium 0.112 MG Oral Tablet [place] ([facility]) Hydroxyzine Hydrochloride 10 MG Oral Tab let hydroxyzine HCl 10 mg tablet TK 1 OR 2 TS PO Q 6 H NEEDED FOR PANIC hydroxyzine HCl 10 mg tablet TK 1 OR 2 T S PO Q 6 H NEEDED FOR PANIC completed hydroxyzine hydrochloride 10 MG Oral Tablet [place] ([facility]) Prednisone 10 MG Oral Tablet prednisone 10 mg tablet T K 1 T PO BID prednisone 10 mg tablet TK 1 T PO BID completed prednisone 10 MG Oral Tablet [place] ([facility]) Sulfasalazine 500 MG Oral Tablet sulfasalazine 500 mg tablet TK 2 TS PO BID sulfasalazine 500 mg tablet TK 2 TS PO BID completed sulfasalazine 500 MG Oral Tablet [place] ([facility]) Sulfamethoxazole 800 MG / Trimethoprim 1 60 MG Oral Tablet sulfamethoxazole 800 mg-trimethoprim 160 mg tablet TK 1 T PO Q 12 H sulfamethoxazole 800 mg- trimethoprim 160 mg tablet TK 1 T PO Q 12 H completed sulfamethoxazole 800 MG / trimethoprim 160 MG Oral Tablet [place] ([facility]) Diclofenac Sodium 0.01 MG/MG Topical Gel diclofenac 1 % topical gel DENG 2 GRAMS EXT AA QID FOR 10 DAYS PRF PAIN diclofenac 1 % topical gel DENG 2 GRAMS E XT AA QID FOR 10 DAYS PRF PAIN completed diclofenac sodium 0.01 MG/MG Topical Gel [place] ([facility]) Hydroxyzine Hydrochloride 10 MG Oral Tab let hydroxyzine HCl 10 mg tablet TK 1 OR 2 TS PO Q 6 H NEEDED FOR PANIC hydroxyzine HCl 10 mg tablet TK 1 OR 2 T S PO Q 6 H NEEDED FOR PANIC completed hydroxyzine hydrochloride 10 MG Oral Tablet [place] ([facility]) Cephalexin 500 MG Oral Capsule cephalexin 500 mg capsu le TK 1 C PO QID cephalexin 500 mg capsule TK 1 C PO QID completed cephalexin 500 MG Oral Capsule [place] ([facility]) Hydroxyzine Hydrochloride 10 MG Oral Tab let hydroxyzine HCl 10 mg tablet TK 1 OR 2 TS PO Q 6 H NEEDED FOR PANIC hydroxyzine HCl 10 mg tablet TK 1 OR 2 T S PO Q 6 H NEEDED FOR PANIC completed hydroxyzine hydrochloride 10 MG Oral Tablet [place] ([facility]) Levothyroxine Sodium 0.112 MG Oral Table t levothyroxine 112 mcg tablet TK 1 T PO QD levothyroxine 112 mcg tablet TK 1 T PO QD completed levothyroxine sodium 0.112 MG Oral Tablet [place] ([facility]) Diclofenac Sodium 0.01 MG/MG Topical Gel diclofenac 1 % topical gel DENG 2 GRAMS EXT AA QID FOR 10 DAYS PRF PAIN diclofenac 1 % topical gel DENG 2 GRAMS E XT AA QID FOR 10 DAYS PRF PAIN completed diclofenac sodium 0.01 MG/MG Topical Gel [place] ([facility]) pregabalin 75 MG Oral Capsule pregabalin 75 mg capsule TAKE 1 CAPSULE BY MOUTH TWICE DAILY. MAXIMUM DAILY DOSE IS 2 CAPSULES pregabalin 75 mg capsule TAKE 1 CAPSULE BY MOUTH TWICE DAILY. MAXIMUM DAILY DOSE IS 2 CAPSULES completed pregabalin 75 MG Oral Capsule AT [place] ([facility]) Levofloxacin 500 MG Oral Tablet levoflox acin 500 mg tablet TK 1 T PO QD FOR 5 DAYS levofloxacin 500 mg tablet TK 1 T PO QD FOR 5 DAYS completed levofloxacin 500 MG Oral Tablet [place] ([facility]) Erythromycin 0.005 MG/MG Ophthalmic Oint ment erythromycin 5 mg/gram (0.5 %) eye ointment APPLY TO EAR LOBE BID erythromycin 5 mg/gram (0.5 %) eye ointm ent APPLY TO EAR LOBE BID completed erythromycin 0.005 MG/MG Ophthalmic Ointment [place] ([facility]) Levothyroxine Sodium 0.125 MG Oral Tablet levothyroxin e 125 mcg tablet levothyroxine 125 mcg tablet completed levothyroxine sodium 0.125 MG Oral Tablet [place] ([facility]) Levothyroxine Sodium 0.125 MG Oral Tablet levothyroxin e 125 mcg tablet levothyroxine 125 mcg tablet completed levothyroxine sodium 0.125 MG Oral Tablet [place] ([facility]) Sulfasalazine 500 MG Oral Tablet sulfasalazine 500 mg tablet TK 2 TS PO BID sulfasalazine 500 mg tablet TK 2 TS PO BID completed sulfasalazine 500 MG Oral Tablet [place] ([facility]) Amoxicillin 875 MG / Clavulanate 125 MG Oral Tablet amoxicillin 875 mg-potassium clavulanate 125 mg tablet TK 1 T PO BID amoxicillin 875 mg-potassium clavulanate 125 mg tablet TK 1 T PO BID completed amoxicillin 875 MG / clavulanate 125 MG Oral Tablet [place] ([facility]) Amoxicillin 875 MG / Clavulanate 125 MG Oral Tablet amoxicillin 875 mg-potassium clavulanate 125 mg tablet TK 1 T PO BID amoxicillin 875 mg-potassium clavulanate 125 mg tablet TK 1 T PO BID completed amoxicillin 875 MG / clavulanate 125 MG Oral Tablet [place] ([facility]) Naproxen 500 MG Oral Tablet naproxen 500 mg tablet TK 1 T PO Q 12 H FOR 10 DAYS naproxen 500 mg tablet TK 1 T PO Q 12 H FOR 10 DAYS completed naproxen 500 MG Oral Tablet [place] ([facility]) Prednisone 10 MG Oral Tablet prednisone 10 mg tablet TAKE 2 TABLET BY MOUTH FOR 3 DAYS 1 TABLET DAILY FOR 3 DAYS THEN 1/2 TABLET FOR 3 DAYS THEN STOP NEEDED FLARE ONCE A DAY prednisone 10 mg tablet TAKE 2 TABLET BY MOUTH FOR 3 DAYS 1 TABLET DAILY FOR 3 DAYS THEN 1/2 TABLET FOR 3 DAYS THEN STOP NEEDED FLARE ONCE A DAY completed prednisone 10 MG Oral Tablet [place] ([facility]) Levofloxacin 500 MG Oral Tablet levoflox acin 500 mg tablet TK 1 T PO QD FOR 5 DAYS levofloxacin 500 mg tablet TK 1 T PO QD FOR 5 DAYS completed levofloxacin 500 MG Oral Tablet [place] ([facility]) [employer] (doxylamine) 25 mg tablet Take by oral route. [id number] completed doxylamine succinate 25 MG Oral Tablet [[employer] (doxylamine)] [place] ([facility]) Levothyroxine Sodium 0.112 MG Oral Table t levothyroxine 112 mcg tablet TK 1 T PO QD levothyroxine 112 mcg tablet TK 1 T PO QD completed levothyroxine sodium 0.112 MG Oral Tablet [place] ([facility]) prednisolone acetate 10 MG/ML Ophthalmic Suspension prednisolone acetate 1 % eye drops,suspension SW AND INSTILL 1 DROP INTO THE RIGHT EYE QID DIRECTED prednisolone acetate 1 % eye drops,suspension SW AND INSTILL 1 DROP INTO THE RIGHT EYE QID DIRECTED completed prednisolone acetate 10 MG/ML Ophthalmic Suspension [place] ([facility]) Aleve completed Aleve [place] ( [facility]) fluticasone furoate 0.1 MG/ACTUAT / ling nterol 0.025 MG/ACTUAT Dry Powder Inhaler Breo Ellipta 100 mcg-25 mcg/dose powder for inhalation INHALE 1 PUFF PO EVERY DAY Breo Ellipta 100 mcg-25 mcg/dose powder for inhalation INHALE 1 PUFF PO EVERY DAY completed f luticasone furoate 0.1 MG/ACTUAT / vilanterol 0.025 MG/ACTUAT Dry Powder Inhaler [place] ([facility]) 12 HR Guaifenesin 600 MG Extended Releas e Oral Tablet [Mucinex] Mucinex 600 mg tablet, extended release TK 1 T PO BID Mucinex 600 mg tablet, extended release TK 1 T PO BID completed 12 HR guaifenesin 600 MG Extended Release Oral Tablet [Mucinex] [place] ([facility]) Ergocalciferol [id number] UNT Oral Capsule er gocalciferol (vitamin D2) 1,250 mcg (50,000 unit) capsule TAKE 1 CAPSULE PO ONCE A WEEK ergocalciferol (vitamin D2) 1,250 mcg (50,000 unit) capsule TAKE 1 CAPSULE PO ONCE A WEEK completed ergocalciferol 1.25 MG Oral Caps ule [place] ([facility]) Naproxen 500 MG Oral Tablet naproxen 500 mg tablet TK 1 T PO Q 12 H FOR 10 DAYS naproxen 500 mg tablet TK 1 T PO Q 12 H FOR 10 DAYS completed naproxen 500 MG Oral Tablet [place] ([facility]) Naproxen 500 MG Oral Tablet naproxen 500 mg tablet TK 1 T PO Q 12 H FOR 10 DAYS naproxen 500 mg tablet TK 1 T PO Q 12 H FOR 10 DAYS completed naproxen 500 MG Oral Tablet [place] ([facility]) Levofloxacin 500 MG Oral Tablet levoflox acin 500 mg tablet TK 1 T PO QD FOR 5 DAYS levofloxacin 500 mg tablet TK 1 T PO QD FOR 5 DAYS completed levofloxacin 500 MG Oral Tablet [place] ([facility]) Diclofenac Sodium 0.01 MG/MG Topical Gel diclofenac 1 % topical gel DENG 2 GRAMS EXT AA QID FOR 10 DAYS PRF PAIN diclofenac 1 % topical gel DENG 2 GRAMS E XT AA QID FOR 10 DAYS PRF PAIN completed diclofenac sodium 0.01 MG/MG Topical Gel [place] ([facility]) Aleve completed Aleve [place] ( [facility]) Meclizine Hydrochloride 12.5 MG Oral Tab let meclizine 12.5 mg tablet TK 1 T PO TID meclizine 12.5 mg tablet TK 1 T PO TID completed meclizine hydrochloride 12.5 MG Oral Tablet [place] ([facility]) ropinirole 2 MG Oral Tablet ropinirole 2 mg tablet TK 1 T PO HS ropinirole 2 mg tablet TK 1 T PO HS completed ro pinirole 2 MG Oral Tablet [place] ([facility]) Hydroxyzine Hydrochloride 10 MG Oral Tab let hydroxyzine HCl 10 mg tablet TK 1 OR 2 TS PO Q 6 H NEEDED FOR PANIC hydroxyzine HCl 10 mg tablet TK 1 OR 2 T S PO Q 6 H NEEDED FOR PANIC completed hydroxyzine hydrochloride 10 MG Oral Tablet [place] ([facility]) Erythromycin 0.005 MG/MG Ophthalmic Oint ment erythromycin 5 mg/gram (0.5 %) eye ointment APPLY TO EAR LOBE BID erythromycin 5 mg/gram (0.5 %) eye ointm ent APPLY TO EAR LOBE BID completed erythromycin 0.005 MG/MG Ophthalmic Ointment [place] ([facility]) Levothyroxine Sodium 0.125 MG Oral Tablet levothyroxin e 125 mcg tablet levothyroxine 125 mcg tablet completed levothyroxine sodium 0.125 MG Oral Tablet [place] ([facility]) Cephalexin 500 MG Oral Capsule cephalexin 500 mg capsu le TK 1 C PO QID cephalexin 500 mg capsule TK 1 C PO QID completed cephalexin 500 MG Oral Capsule [place] ([facility]) Erythromycin 0.005 MG/MG Ophthalmic Oint ment erythromycin 5 mg/gram (0.5 %) eye ointment APPLY TO EAR LOBE BID erythromycin 5 mg/gram (0.5 %) eye ointm ent APPLY TO EAR LOBE BID completed erythromycin 0.005 MG/MG Ophthalmic Ointment [place] ([facility]) Diclofenac Sodium 75 MG Delayed Release Oral Tablet diclofenac sodium 75 mg tablet,delayed release TK 1 T PO BID FOR 10 DAYS diclofenac sodium 75 mg tablet,delayed release TK 1 T PO BID FOR 10 DAYS completed diclofenac sodium 75 MG Delayed Release Oral Tablet [place] ([facility]) Trazodone Hydrochloride 100 MG Oral Tablet trazodone 1 00 mg tablet TK 1 T PO HS trazodone 100 mg tablet TK 1 T PO HS c ompleted trazodone hydrochloride 100 MG Oral Tablet [place] ([facility]) ropinirole 1 MG Oral Tablet ropinirole 1 mg tablet 1 tablet po once nightly before bed ropinirole 1 mg tablet 1 tablet po once nightly before bed completed ropinirole 1 MG Oral Tablet [place] ([facility]) Sulfasalazine 500 MG Oral Tablet sulfasalazine 500 mg tablet TK 2 TS PO BID sulfasalazine 500 mg tablet TK 2 TS PO BID completed sulfasalazine 500 MG Oral Tablet [place] ([facility]) 14 ACTUAT fluticasone furoate 0.1 MG/ACT UAT / vilanterol 0.025 MG/ACTUAT Dry Powder Inhaler Fluticasone Furoate-Vilanterol (BREO ELLIPTA) 100-25 MCG/INH INHALER Fluticasone Furoate-Vilanterol (BREO ELLIPTA) 100-25 MCG/INH INHALER 1 {inhaler} Oral aborted Take 1 Inhal er by mouth daily [facility] Levothyroxine Sodium 0.112 MG Oral Table t levothyroxine 112 mcg tablet TK 1 T PO QD levothyroxine 112 mcg tablet TK 1 T PO QD completed levothyroxine sodium 0.112 MG Oral Tablet [place] ([facility]) Aleve completed Aleve [place] ( [facility]) Trazodone Hydrochloride 100 MG Oral Tablet trazodone 1 00 mg tablet TK 1 T PO HS trazodone 100 mg tablet TK 1 T PO HS c ompleted trazodone hydrochloride 100 MG Oral Tablet [place] ([facility]) Acetaminophen 325 MG / Hydrocodone [place] trate 5 MG Oral Tablet hydrocodone 5 mg- acetaminophen 325 mg tablet hydrocodone 5 mg-acetaminophen 325 mg tablet completed acetaminophen 325 MG / hydrocodone bitartrate 5 MG Oral Tablet [place] ([facility]) Levofloxacin 500 MG Oral Tablet levoflox acin 500 mg tablet TK 1 T PO QD FOR 5 DAYS levofloxacin 500 mg tablet TK 1 T PO QD FOR 5 DAYS completed levofloxacin 500 MG Oral Tablet [place] ([facility]) Trazodone Hydrochloride 100 MG Oral Tablet trazodone 1 00 mg tablet TK 1 T PO HS trazodone 100 mg tablet TK 1 T PO HS c ompleted trazodone hydrochloride 100 MG Oral Tablet [place] ([facility]) Cyclobenzaprine hydrochloride 10 MG Oral Tablet cyclobenzaprine 10 mg tablet TK 1 T PO TID PRN cyclobenzaprine 10 mg tablet TK 1 T PO TID PRN completed cyclobenzaprine hydrochloride 10 MG Oral Tablet [place] ([facility]) Hydrocortisone 10 MG/ML / Neomycin 3.5 M G/ML / Polymyxin B [id number] UNT/ML Otic Suspension olufvmni-eahjwlrpl-yrzsurhqr 3.5 mg-10,000 unit/mL-1 % ear drops,susp INSTILL 3 DROPS INTO THE RIGHT EAR BID yehffcny-tnbqxwxsc-jcbwhcmth 3.5 mg- 10,000 unit/mL-1 % ear drops,susp INSTILL 3 DROPS INTO THE RIGHT EAR BID completed hydrocortisone 10 MG/ML / neomycin 3.5 MG/ML / polymyxin B 28909 UNT/ML Otic Suspension [place] ([facility]) Hydrocortisone 10 MG/ML / Neomycin 3.5 M G/ML / Polymyxin B 82562 UNT/ML Otic Suspension keuciybc-wgnscgrzu-xdggwepdx 3.5 mg-10,000 unit/mL-1 % ear drops,susp INSTILL 3 DROPS INTO THE RIGHT EAR BID kjjnmpzs-fcpnsxqpt-bnyxqfpkj 3.5 mg- 10,000 unit/mL-1 % ear drops,susp INSTILL 3 DROPS INTO THE RIGHT EAR BID completed hydrocortisone 10 MG/ML / neomycin 3.5 MG/ML / polymyxin B 36885 UNT/ML Otic Suspension [place] ([facility]) pregabalin 75 MG Oral Capsule pregabalin 75 mg capsule TAKE 1 CAPSULE BY MOUTH TWICE DAILY. MAXIMUM DAILY DOSE IS 2 CAPSULES pregabalin 75 mg capsule TAKE 1 CAPSULE BY MOUTH TWICE DAILY. MAXIMUM DAILY DOSE IS 2 CAPSULES completed pregabalin 75 MG Oral Capsule AT [facility]) Clindamycin 300 MG Oral Capsule clindamy moisés HCl 300 mg capsule TAKE 1 CAPSULE BY MOUTH THREE TIMES DAILY FOR ACUTE OPIOID THERAPY DAYS clindamycin HCl 300 mg capsule TAKE 1 CAPSULE BY MOUTH THREE TIMES DAILY FOR ACUTE OPIOID THERAPY DAYS completed clindamycin 30 0 MG Oral Capsule [place] ([facility]) Cyclobenzaprine hydrochloride 10 MG Oral Tablet cyclobenzaprine 10 mg tablet TK 1 T PO TID PRN cyclobenzaprine 10 mg tablet TK 1 T PO TID PRN completed cyclobenzaprine hydrochloride 10 MG Oral Tablet [place] ([facility]) Cephalexin 500 MG Oral Capsule cephalexin 500 mg capsu le TK 1 C PO QID cephalexin 500 mg capsule TK 1 C PO QID completed cephalexin 500 MG Oral Capsule [place] ([facility]) Levothyroxine Sodium 0.2 MG Oral Tablet levothyroxine 200 mcg tablet TK 1 T PO QD levothyroxine 200 mcg tablet TK 1 T PO QD completed levothyroxine sodium 0.2 MG Oral Tablet [place] ([facility]) duloxetine 60 MG Delayed Release Oral Ca psule DULoxetine (CYMBALTA) 60 MG capsule DULoxetine (CYMBALTA) 60 MG capsule 60 mg Oral aborted Take 60 mg by mouth daily [facility] pantoprazole 20 MG Delayed Release Oral Tablet pantoprazole (PROTONIX) 20 MG tablet pantoprazole (PROTONIX) 20 MG tablet 20 mg Oral aborted Take 20 mg by mouth daily [facility] Meclizine Hydrochloride 12.5 MG Oral Tab let meclizine 12.5 mg tablet TK 1 T PO TID meclizine 12.5 mg tablet TK 1 T PO TID completed meclizine hydrochloride 12.5 MG Oral Tablet [facility] ([facility]) prednisolone acetate 10 MG/ML Ophthalmic Suspension prednisolone acetate 1 % eye drops,suspension SW AND INSTILL 1 DROP INTO THE RIGHT EYE QID DIRECTED prednisolone acetate 1 % eye drops,suspension SW AND INSTILL 1 DROP INTO THE RIGHT EYE QID DIRECTED completed prednisolone acetate 10 MG/ML Ophthalmic Suspension [facility] ([facility]) Sulfamethoxazole 800 MG / Trimethoprim 1 60 MG Oral Tablet sulfamethoxazole 800 mg-trimethoprim 160 mg tablet TK 1 T PO Q 12 H sulfamethoxazole 800 mg- trimethoprim 160 mg tablet TK 1 T PO Q 12 H completed sulfamethoxazole 800 MG / trimethoprim 160 MG Oral Tablet [place] ([facility]) Meclizine Hydrochloride 12.5 MG Oral Tab let meclizine 12.5 mg tablet TK 1 T PO TID meclizine 12.5 mg tablet TK 1 T PO TID completed meclizine hydrochloride 12.5 MG Oral Tablet [facility] ([facility]) Clindamycin 300 MG Oral Capsule clindamy moisés HCl 300 mg capsule TAKE 1 CAPSULE BY MOUTH THREE TIMES DAILY FOR ACUTE OPIOID THERAPY DAYS clindamycin HCl 300 mg capsule TAKE 1 CAPSULE BY MOUTH THREE TIMES DAILY FOR ACUTE OPIOID THERAPY DAYS completed clindamycin 30 0 MG Oral Capsule [place] ([facility]) Cyclobenzaprine hydrochloride 10 MG Oral Tablet cyclobenzaprine 10 mg tablet TK 1 T PO TID PRN cyclobenzaprine 10 mg tablet TK 1 T PO TID PRN completed cyclobenzaprine hydrochloride 10 MG Oral Tablet [place] ([facility]) Diclofenac Sodium 75 MG Delayed Release Oral Tablet diclofenac sodium 75 mg tablet,delayed release TK 1 T PO BID FOR 10 DAYS diclofenac sodium 75 mg tablet,delayed release TK 1 T PO BID FOR 10 DAYS completed diclofenac sodium 75 MG Delayed Release Oral Tablet [place] ([facility]) ropinirole 2 MG Oral Tablet ropinirole 2 mg tablet TK 1 T PO HS ropinirole 2 mg tablet TK 1 T PO HS completed ro pinirole 2 MG Oral Tablet [place] ([facility]) 30 ACTUAT fluticasone furoate 0.2 MG/ACT UAT / vilanterol 0.025 MG/ACTUAT Dry Powder Inhaler Fluticasone Furoate-Vilanterol (BREO ELLIPTA) 200-25 MCG/INH AEPB Fluticasone Furoate-Vilanterol (BREO ELLIPTA) 200-25 MCG/INH AEPB 1 {puff} Inhalation aborted Inhale 1 puff daily [facility] Clindamycin 300 MG Oral Capsule clindamy moisés HCl 300 mg capsule TAKE 1 CAPSULE BY MOUTH THREE TIMES DAILY FOR ACUTE OPIOID THERAPY DAYS clindamycin HCl 300 mg capsule TAKE 1 CAPSULE BY MOUTH THREE TIMES DAILY FOR ACUTE OPIOID THERAPY DAYS completed clindamycin 30 0 MG Oral Capsule [place] ([facility]) Sulfamethoxazole 800 MG / Trimethoprim 1 60 MG Oral Tablet sulfamethoxazole 800 mg-trimethoprim 160 mg tablet TK 1 T PO Q 12 H sulfamethoxazole 800 mg- trimethoprim 160 mg tablet TK 1 T PO Q 12 H completed sulfamethoxazole 800 MG / trimethoprim 160 MG Oral Tablet [place] ([facility]) Trazodone Hydrochloride 100 MG Oral Tablet trazodone 1 00 mg tablet TK 1 T PO HS trazodone 100 mg tablet TK 1 T PO HS c ompleted trazodone hydrochloride 100 MG Oral Tablet [place] ([facility]) Acetaminophen 325 MG / Hydrocodone [place] trate 5 MG Oral Tablet hydrocodone 5 mg- acetaminophen 325 mg tablet hydrocodone 5 mg-acetaminophen 325 mg tablet completed acetaminophen 325 MG / hydrocodone bitartrate 5 MG Oral Tablet [place] ([facility]) Hydrocortisone 10 MG/ML / Neomycin 3.5 M G/ML / Polymyxin B 07736 UNT/ML Otic Suspension nrwmhexi-hgtomnuqk-srlundneg 3.5 mg-10,000 unit/mL-1 % ear drops,susp INSTILL 3 DROPS INTO THE RIGHT EAR BID aluuxbqx-lysxdeyos-mumbhqblq 3.5 mg- 10,000 unit/mL-1 % ear drops,susp INSTILL 3 DROPS INTO THE RIGHT EAR BID completed hydrocortisone 10 MG/ML / neomycin 3.5 MG/ML / polymyxin B 98034 UNT/ML Otic Suspension PETRA ([facility]) Diclofenac Sodium 75 MG Delayed Release Oral Tablet diclofenac sodium 75 mg tablet,delayed release TK 1 T PO BID FOR 10 DAYS diclofenac sodium 75 mg tablet,delayed release TK 1 T PO BID FOR 10 DAYS completed diclofenac sodium 75 MG Delayed Release Oral Tablet [place] ([facility]) Acetaminophen 325 MG / Hydrocodone [place] trate 5 MG Oral Tablet hydrocodone 5 mg- acetaminophen 325 mg tablet hydrocodone 5 mg-acetaminophen 325 mg tablet completed acetaminophen 325 MG / hydrocodone bitartrate 5 MG Oral Tablet [place] ([facility]) Insurance Providers Payer name Policy type / Coverage type Policy ID Covered alliance party ID Covered alliance party's relationship to dockery Policy Dockery Plan Information MEDICARE [id number] SP [id number] EMEDNY [id number] SP [id number] [facility] [id number] SP [id number] [facility] [id number] SP [id number] [facility](MCAID) O [id number] S [id number] MEDICAID [id number] [facility] MEDICARE [id number] MEDICAID [id number] Deb [id number] [facility] MEDICARE [id number] Deb [id number] MEDICAID M [id number] S [id number] MEDICARE [id number] SP [id number] A MEDICAID [id number] SP [id number] MEDICARE [id number] SP [id number] MEDICAID [id number] SP [id number] [facility] MCRHMO [id number] SP [id number] MEDICAID [id number] SP [id number] [facility] MCRHMO [id number] SP [id number] MEDICARE COMPLETE-UH O [id number] S [id number] MEDICAID [facility] [id number] [facility] COMMUNTY PLAN [id number] 18 [id number] MEDICARE COMPLETE [id number] SP [id number] MEDICAID [id number] SP [id number] MEDICAID -PHYSICIAN [id number] UNHC COMMUNITY PLAN XIX [id number] 18 [id number] [facility] MCRHMO [id number] SP [id number] [facility] MCRHMO [id number] SP [id number] UNHC COMMUNITY PLAN XIX [id number] 18 [id number] MEDICAID-O/P [id number] MEDICAID -I/P [id number] 18 [id number] UNHC CP DUAL COMP -I/P [id number] 18 [id number] UNHC COMMUNITY PLAN MCDHMO [id number] SP [id number] UNHC COMMUNITY PLAN MCDHMO [id number] SP [id number] UNHC CP DUAL COMP -PHYSICIAN [id number] 18 [id number] UNHC CP DUAL COMP - FACILITY [id number] 18 [id number] MEDICAID [id number] SP [id number] [place] MEDICARE [id number] Deb [id number] MEDICAID M [id number] Self [id number] UHC I [id number] Self [id number] Medicaid [facility] [place] Medicaid [id number] Self B [id number] [facility] Communty Plan Medicaid [id number] Self [id number] [place] Part B [id number] Self [id number] Medicare Dme [facility] Medigap Part B [id number] Self [id number] [facility] Medicare Dual Complet Commercial [id number] Self [id number] [facility] Medicare Dual Complete Medigap Part B [id number] Self [id number] [place] Med[place] Part B [id number] Self [id number] Medicaid Medicaid [id number] Self [id number] [facility] Comm Dual Plan Commercial [id number] Self [id number] ANSI-Medicaid [id number] ANSI-Not a Secondary Insurance [id number] ANSI-Medicaid [id number] ANSI-Not a Secondary Insurance [id number] [place] [id number] SP [id number] ANSI-Not a Secondary Insurance [id number] ANSI-Medicaid [id number] Medicaid [facility] Medicaid [id number] Self B [id number] [facility] Communty Plan Medicaid [id number] Self 10 [id number] ANSI-Not a Secondary Insurance [id number] ANSI-Medicaid [id number] ANSI-Not a Secondary Insurance [id number] ANSI-Medicaid [id number] Medicaid Medicaid [id number] Self [id number] [facility] Comm Dual Plan Commercial [id number] Self [id number] [facility] [id number] SP [id number] [facility] [id number] SP [id number] [facility] [id number] SP [id number] Medicaid [facility] [place] Medicaid [id number] Self B [id number] [facility] Communty Plan Medicaid [id number] Self [id number] Medicaid [facility] [place] Medicaid [id number] Self B [id number] [facility] Communty Plan Medicaid [id number] Self 10 [id number] [place] Medigap Part B [id number] Self [id number] Medicare Dme Supplies Medigap Part B [id number] Self [id number] [facility] Medicare Dual Complet Commercial [id number] Self [id number] [place] Medigap Part B [id number] Self [id number] Medicare Dme Supplies Medigap Part B [id number] Self [id number] [facility] Medicare Dual Complet Commercial [id number] Self [id number] Medicaid [facility] [place] Medicaid [id number] Self B [id number] [facility] Communty Plan Medicaid [id number] Self [id number] [facility] Health Maintenance Organization (HMO) [id number] Self [id number] [place] Medigap Part B [id number] Self [id number] Medicare Dme Supplies Medigap Part B [id number] Self [id number] [facility] Medicare Dual Complet Commercial [id number] Self [id number] [facility] Comm Dual Plan Commercial [id number] Self [id number] [place] Medigap Part B [id number] Self [id number] Medicare Dme Supplies Medigap Part B [id number] Self [id number] [facility] Medicare Dual Complet Commercial [id number] Self [id number] Medicaid [facility] [place] Medicaid [id number] Self B [id number] [facility] Communty Plan Medicaid [id number] Self [id number] [place] Medigap Part B [id number] Self [id number] Medicare Dme Supplies Medigap Part B [id number] Self [id number] [facility] Medicare Dual Complet Commercial [id number] Self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 quantitati <0.80 0.00-0.79 normal Lyme Disease IgM Ab Quantitati [facility] ([facility]) lyme disease IgG/IgM antibodie <0.91 0.00-0.90 normal Lyme Disease IgG/IgM Antibodie [place] ([facility]) ID Date Data Source [id number] 11/13/2020 01:00:00 PM EST [place] ([facility]) Name Value Range Interpretation Code Description Data Ana rce(s) Supporting Document(s) white blood count 8.9 10 4.0-10.0 normal White Blood Count [facility] ([facility]) hemoglobin 12.0 g/dL 12.0-15.5 normal Hemoglobin [place] ([facility]) red blood count 4.26 10 4.00-5.40 normal Red Blood Count [facility] ([facility]) mean corpuscular volume 92.3 fL 80.0-96.0 normal Mean Corpusc ular Volume [place] ([facility]) hematocrit 39.3 % 36.0-47.0 normal Hematocrit [place] ([facility]) neutrophils % 67.9 % 36.0-66.0 Above high normal Neutrophils % A [place] ([facility]) mean corpuscular hemoglobin 28.2 pg 27.0-33.0 normal Mean Corpuscular Hemoglobin [place] ([facility]) red cell distribution width 14.6 % 11.5-14.5 Above high no rmal Red Cell Distribution Width [place] ([facility]) platelet count, automated 406 10 150-450 normal Platelet C ount, Automated [place] ([facility]) mean corpuscular HGB conc 30.5 g/dL 32.0-36.5 Below low lawanda l Mean Corpuscular HGB Conc [place] ([facility]) eos % 5.9 % 0.0-3.0 Above high normal Eos % [place] ([facility]) lymph % 14.9 % 24.0-44.0 Below low normal Lymph % [place] ( [facility]) baso % 0.3 % 0.0-1.0 normal Baso % [facility] ([facility]) mono % 10.7 % 0.0-5.0 Above high normal [place] % [facility] ([facility]) immature granulocyte % 0.3 % 0-3.0 normal Immature Gran ulocyte % [facility] ([facility]) lymph # 1.3 10 1.5-5.0 Below low normal Lymph # [place] ( [facility]) nucleated red blood cell % 0.0 % 0-0 normal Nucleated Red Blood Cell % [facility] ([facility]) neutrophils # 6.0 10 1.5-8.5 normal Neutrophils # [place] ( [facility]) mono # 1.0 10 0.0-0.8 Above high normal [place] # [facility] ([facility]) baso # 0.0 10 0.0-0.2 normal Baso # [facility] ([facility]) eos # 0.5 10 0.0-0.5 normal Eos # [facility] ([facility]) ID Date Data Source [id number] 11/13/2020 01:00:00 PM EST [facility] ([facility]) Name Value Range Interpretation Code Description Data Ana rce(s) Supporting Document(s) ferritin 108 NG/mL 8-252 normal Ferritin [facility]) ID Date Data Source [id number] 11/13/2020 01:00:00 PM EST [facility] ([facility]) Name Value Range Interpretation Code Description Data Ana rce(s) Supporting Document(s) total 25(oh) vitamin D 60.8 NG/mL 30.0-100.0 normal Total 25(Oh) Vitamin D [place] ([facility]) ID Date Data Source [id number] 11/13/2020 01:00:00 PM EST [facility] ([facility]) Name Value Range Interpretation Code Description Data Ana rce(s) Supporting Document(s) thyroid stimulating hormone 1.530 uIU/mL 0.358-3.740 normal Thyroid Stimulating Hormone [place] ([facility]) free T4 1.45 NG/dL 0.76-1.46 normal Free T4 [facility] ([facility]) ID Date Data Source [id number] 11/13/2020 01:00:00 PM EST [facility] ([facility]) Name Value Range Interpretation Code Description Data Ana rce(s) Supporting Document(s) total iron binding capacity 236 ug/dL 250-450 Below low nor mal Total Iron Binding Capacity [facility] ([facility]) iron (fe) 24 ug/dL 50-170 Below low normal Iron (Fe) [place] ( [facility]) percent saturation 10.2 % 13.2-45.0 Below low normal Percent Sat uration [facility] ([facility]) ID Date Data Source [id number] 11/13/2020 01:00:00 PM EST [facility] ([facility]) Name Value Range Interpretation Code Description Data Ana rce(s) Supporting Document(s) glucose, fasting 89 mg/dL 70-100 normal Glucose, Fasting AT [facility]) creatinine for GFR 0.70 mg/dL 0.55-1.30 normal Creatinine for GF R [place] ([facility]) blood urea nitrogen 22 mg/dL 7-18 Above high normal Blood Ure a Nitrogen [facility] ([facility]) glomerular filtration rate > 60.0 >45 normal Glomerula r Filtration Rate [facility] ([facility]) potassium serum 4.1 mEq/L 3.5-5.1 normal Potassium Serum ATH NA ([facility]) sodium level 138 mEq/L 136-145 normal Sodium Level [facility] ([facility]) chloride level 100 mEq/L 98-107 normal Chloride Level [facility] ([facility]) calcium level 9.3 mg/dL 8.8-10.2 normal Calcium Level [place] ( [facility]) carbon dioxide level 36 mEq/L 21-32 Above high normal Carbon D ioxide Level [place] ([facility]) anion gap 2 mEq/L 8-16 Below low normal Anion Gap [place] ( [facility]) AST/SGOT 25 U/L 7-37 normal AST/SGOT [facility] ([facility]) bilirubin,total 0.3 mg/dL 0.2-1.0 normal Bilirubin,total [facility] ([facility]) ALT/SGPT 52 U/L 12-78 normal ALT/SGPT [facility] ([facility]) alkaline phosphatase 110 U/L 45-117 normal Alkaline Phosph atase [facility] ([facility]) albumin/globulin ratio 1.2-2.2 Below low normal Albumin /globulin Ratio [place] ([facility]) total protein 7.1 gm/dL 6.4-8.2 normal Total Protein [place] ( [facility]) albumin 3.4 gm/dL 3.2-5.2 normal Albumin [facility] ([facility]) ID Date Data Source [id number] 11/13/2020 01:00:00 PM EST [place] ([facility]) Name Value Range Interpretation Code Description Data Ana rce(s) Supporting Document(s) lyme disease IgG/IgM antibodie <0.91 0.00-0.90 normal Lyme Disease IgG/IgM Antibodie [facility] ([facility]) lyme disease IgM Ab quantitati <0.80 0.00-0.79 normal Lyme Disease IgM Ab Quantitati [facility]) ID Date Data Source [id number] 11/13/2020 01:00:00 PM EST [facility] ([facility]) Name Value Range Interpretation Code Description Data Ana rce(s) Supporting Document(s) red blood count 4.26 10 4.00-5.40 normal Red Blood Count [facility] ([facility]) white blood count 8.9 10 4.0-10.0 normal White Blood Count [place] ([facility]) mean corpuscular volume 92.3 fL 80.0-96.0 normal Mean Corpusc ular Volume [facility] ([facility]) hemoglobin 12.0 g/dL 12.0-15.5 normal Hemoglobin [place] ([facility]) mean corpuscular hemoglobin 28.2 pg 27.0-33.0 normal Mean Corpuscular Hemoglobin [facility] ([facility]) hematocrit 39.3 % 36.0-47.0 normal Hematocrit [facility] ([facility]) mean corpuscular HGB conc 30.5 g/dL 32.0-36.5 Below low lawanda l Mean Corpuscular HGB Conc [facility] ([facility]) neutrophils % 67.9 % 36.0-66.0 Above high normal Neutrophils % A [place] ([facility]) lymph % 14.9 % 24.0-44.0 Below low normal Lymph % [place] ( [facility]) red cell distribution width 14.6 % 11.5-14.5 Above high no rmal Red Cell Distribution Width [place] ([facility]) platelet count, automated 406 10 150-450 normal Platelet C ount, Automated [place] ([facility]) baso % 0.3 % 0.0-1.0 normal Baso % [facility] ([facility]) mono % 10.7 % 0.0-5.0 Above high normal [place] % [facility] ([facility]) nucleated red blood cell % 0.0 % 0-0 normal Nucleated Red Blood Cell % [facility] ([facility]) eos % 5.9 % 0.0-3.0 Above high normal Eos % [facility] ([facility]) immature granulocyte % 0.3 % 0-3.0 normal Immature Gran ulocyte % [place] ([facility]) eos # 0.5 10 0.0-0.5 normal Eos # [facility] ([facility]) neutrophils # 6.0 10 1.5-8.5 normal Neutrophils # [facility] ( [facility]) lymph # 1.3 10 1.5-5.0 Below low normal Lymph # [facility] ( [facility]) mono # 1.0 10 0.0-0.8 Above high normal [place] # [place] ([facility]) baso # 0.0 10 0.0-0.2 normal Baso # [facility] ([facility]) ID Date Data Source [id number] 11/13/2020 01:00:00 PM EST [facility] ([facility]) Name Value Range Interpretation Code Description Data Ana rce(s) Supporting Document(s) ferritin 108 NG/mL 8-252 normal Ferritin [facility] ([facility]) ID Date Data Source [id number] 11/13/2020 01:00:00 PM EST [facility] ([facility]) Name Value Range Interpretation Code Description Data Ana rce(s) Supporting Document(s) total 25(oh) vitamin D 60.8 NG/mL 30.0-100.0 normal Total 25(Oh) Vitamin D [place] ([facility]) ID Date Data Source [id number] 11/13/2020 01:00:00 PM EST [facility] ([facility]) Name Value Range Interpretation Code Description Data Ana rce(s) Supporting Document(s) thyroid stimulating hormone 1.530 uIU/mL 0.358-3.740 normal Thyroid Stimulating Hormone [place] ([facility]) free T4 1.45 NG/dL 0.76-1.46 normal Free T4 [place] ([facility]) ID Date Data Source [id number] 11/13/2020 01:00:00 PM EST [facility] ([facility] [facility]) Name Value Range Interpretation Code Description Data Ana rce(s) Supporting Document(s) total iron binding capacity 236 ug/dL 250-450 Below low nor mal Total Iron Binding Capacity PETRA ([facility]) percent saturation 10.2 % 13.2-45.0 Below low normal Percent Sat uration PETRA ([facility]) iron (fe) 24 ug/dL 50-170 Below low normal Iron (Fe) PETRA ( [facility]) ID Date Data Source [id number] 11/13/2020 01:00:00 PM EST PETRA ([facility]) Name Value Range Interpretation Code Description Data Ana rce(s) Supporting Document(s) glucose, fasting 89 mg/dL 70-100 normal Glucose, Fasting AT MAURIZIO ([facility]) blood urea nitrogen 22 mg/dL 7-18 Above high normal Blood Ure a Nitrogen PETRA ([facility]) creatinine for GFR 0.70 mg/dL 0.55-1.30 normal Creatinine for GF R PETRA ([facility]) glomerular filtration rate > 60.0 >45 normal Glomerula r Filtration Rate PETRA ([facility]) sodium level 138 mEq/L 136-145 normal Sodium Level PETRA (No [facility]) chloride level 100 mEq/L 98-107 normal Chloride Level PETRA ([facility]) potassium serum 4.1 mEq/L 3.5-5.1 normal Potassium Serum ATHE ([facility]) AST/SGOT 25 U/L 7-37 normal AST/SGOT [place] ([facility]) carbon dioxide level 36 mEq/L 21-32 Above high normal Carbon D ioxide Level PETRA ([facility]) anion gap 2 mEq/L 8-16 Below low normal Anion Gap PETRA ( [facility]) calcium level 9.3 mg/dL 8.8-10.2 normal Calcium Level PETRA ( [facility]) ALT/SGPT 52 U/L 12-78 normal ALT/SGPT [place] ([facility]) bilirubin,total 0.3 mg/dL 0.2-1.0 normal Bilirubin,total ATHE [facility]) alkaline phosphatase 110 U/L 45-117 normal Alkaline Phosph atase [facility] total protein 7.1 gm/dL 6.4-8.2 normal Total Protein PETRA ( [facility]) albumin 3.4 gm/dL 3.2-5.2 normal Albumin PETRA ([facility]) albumin/globulin ratio 1.2-2.2 Below low normal Albumin /globulin Ratio PETRA ([facility]) ID Date Data Source [id number] 11/13/2020 01:00:00 PM EST PETRA ([facility]) Name Value Range Interpretation Code Description Data Ana rce(s) Supporting Document(s) lyme disease IgG/IgM antibodie <0.91 0.00-0.90 normal Lyme Disease IgG/IgM Antibodie [place] ([facility]) lyme disease IgM Ab quantitati <0.80 0.00-0.79 normal Lyme Disease IgM Ab Quantitati [place] ([facility]) ID Date Data Source [id number] 11/13/2020 01:00:00 PM EST [place] ([facility]) Name Value Range Interpretation Code Description Data Ana rce(s) Supporting Document(s) red blood count 4.26 10 4.00-5.40 normal Red Blood Count [facility] ([facility]) hemoglobin 12.0 g/dL 12.0-15.5 normal Hemoglobin [place] ([facility]) white blood count 8.9 10 4.0-10.0 normal White Blood Count [place] ([facility]) mean corpuscular volume 92.3 fL 80.0-96.0 normal Mean Corpusc ular Volume [place] ([facility]) hematocrit 39.3 % 36.0-47.0 normal Hematocrit [place] ([facility]) mean corpuscular HGB conc 30.5 g/dL 32.0-36.5 Below low lawanda l Mean Corpuscular HGB Conc [place] ([facility]) mean corpuscular hemoglobin 28.2 pg 27.0-33.0 normal Mean Corpuscular Hemoglobin [place] ([facility]) red cell distribution width 14.6 % 11.5-14.5 Above high no rmal Red Cell Distribution Width PETRA ([facility]) lymph % 14.9 % 24.0-44.0 Below low normal Lymph % [place] ( [facility]) platelet count, automated 406 10 150-450 normal Platelet C ount, Automated PETRA ([facility]) mono % 10.7 % 0.0-5.0 Above high normal [place] % [facility] neutrophils % 67.9 % 36.0-66.0 Above high normal Neutrophils % A THENA ([facility]) immature granulocyte % 0.3 % 0-3.0 normal Immature Gran ulocyte % PETRA ([facility]) eos % 5.9 % 0.0-3.0 Above high normal Eos % PETRA ([facility]) nucleated red blood cell % 0.0 % 0-0 normal Nucleated Red Blood Cell % PETRA ([facility]) baso % 0.3 % 0.0-1.0 normal Baso % PETRA ([facility]) baso # 0.0 10 0.0-0.2 normal Baso # PETRA ([facility]) neutrophils # 6.0 10 1.5-8.5 normal Neutrophils # PETRA ( [facility]) lymph # 1.3 10 1.5-5.0 Below low normal Lymph # PETRA ( [facility]) eos # 0.5 10 0.0-0.5 normal Eos # PETRA ([facility]) mono # 1.0 10 0.0-0.8 Above high normal [place] # PETRA ([facility]) ID Date Data Source [id number] 11/13/2020 01:00:00 PM EST PETRA ([facility]) Name Value Range Interpretation Code Description Data Ana rce(s) Supporting Document(s) ferritin 108 NG/mL 8-252 normal Ferritin PETRA ([facility]) ID Date Data Source [id number] 11/13/2020 01:00:00 PM EST PETRA ([facility]) Name Value Range Interpretation Code Description Data Ana rce(s) Supporting Document(s) total 25(oh) vitamin D 60.8 NG/mL 30.0-100.0 normal Total 25(Oh) Vitamin D [place] ([facility]) ID Date Data Source [id number] 11/13/2020 01:00:00 PM EST PETRA ([facility]) Name Value Range Interpretation Code Description Data Ana rce(s) Supporting Document(s) thyroid stimulating hormone 1.530 uIU/mL 0.358-3.740 normal Thyroid Stimulating Hormone PETRA ([facility]) free T4 1.45 NG/dL 0.76-1.46 normal Free T4 [place] ([facility]) ID Date Data Source [id number] 11/13/2020 01:00:00 PM EST [facility]) Name Value Range Interpretation Code Description Data Ana rce(s) Supporting Document(s) total iron binding capacity 236 ug/dL 250-450 Below low nor mal Total Iron Binding Capacity PETRA ([facility]) percent saturation 10.2 % 13.2-45.0 Below low normal Percent Sat uration PETRA ([facility]) iron (fe) 24 ug/dL 50-170 Below low normal Iron (Fe) [place] ( [facility]) ID Date Data Source [id number] 11/13/2020 01:00:00 PM EST [place] ([facility]) Name Value Range Interpretation Code Description Data Ana rce(s) Supporting Document(s) blood urea nitrogen 22 mg/dL 7-18 Above high normal Blood Ure a Nitrogen [place] ([facility]) glucose, fasting 89 mg/dL 70-100 normal Glucose, Fasting AT [facility]) creatinine for GFR 0.70 mg/dL 0.55-1.30 normal Creatinine for GF R PETRA ([facility]) glomerular filtration rate > 60.0 >45 normal Glomerula r Filtration Rate PETRA ([facility]) sodium level 138 mEq/L 136-145 normal Sodium Level PETRA (No [facility]) anion gap 2 mEq/L 8-16 Below low normal Anion Gap PETRA ( [facility]) potassium serum 4.1 mEq/L 3.5-5.1 normal Potassium Serum ATH NA [facility]) chloride level 100 mEq/L 98-107 normal Chloride Level [place] ([facility]) carbon dioxide level 36 mEq/L 21-32 Above high normal Carbon D ioxide Level [place] ([facility]) AST/SGOT 25 U/L 7-37 normal AST/SGOT PETRA ([facility]) alkaline phosphatase 110 U/L 45-117 normal Alkaline Phosph atase [place] ([facility]) ALT/SGPT 52 U/L 12-78 normal ALT/SGPT PETRA ([facility]) calcium level 9.3 mg/dL 8.8-10.2 normal Calcium Level PETRA ( [facility]) bilirubin,total 0.3 mg/dL 0.2-1.0 normal Bilirubin,total ATHE NA ([facility]) total protein 7.1 gm/dL 6.4-8.2 normal Total Protein PETRA ( [facility]) albumin/globulin ratio 1.2-2.2 Below low normal Albumin /globulin Ratio PETRA ([facility]) albumin 3.4 gm/dL 3.2-5.2 normal Albumin PETRA ([facility]) ID Date Data Source [id number] 06/26/2020 12:00:00 AM EDT [facility] Jami Vasquez MD Patient Name: FERNIE GOODWIN [facility] Date of : 1955[place] [address] Date of Exam: 06/26/2020PH#: Fax: [phone] EXAM: CHEST (2 VIEW) X-RAYCLINICAL INFORMATION: Cough.Two views.There is cardiomegaly. The interstitial markings are mildly diffuselyincreased. There is increased density in the posterior lung hdz and onthe lateral view. There is a subtle focal opacity in the right lower lobe. The pleural angles are sharp. The osseous structures are within normallimits.IMPRESSION:Fibrotic changes are suspected with cardiomegaly. Focal opacity asdescribed above. Chest CT is recommended.RUKHSANA Lawrence/Des kennedy for referring LEANNA GOODWIN to our office. Electronically Signed - JERSEY CULVER DO 06/27/20 16:47 Name Value Range Interpretation Code Description Data Ana rce(s) Supporting Document(s) ID Date Data Source [id number] 03/12/2020 10:30:00 AM EDT [facility] Name Value Range Interpretation Code Description Data Ana rce(s) Supporting Document(s) SARS CORONAVIRUS 2 RNA [facility] This lab was ordered by [facility] and reported by [facility]. ID Date Data Source [id number] 12/19/2019 12:00:00 AM EST eCW1 ([facility]) Name Value Range Interpretation Code Description Data Ana rce(s) Supporting Document(s) > 24.0 FOLATE eCW1 ([facility]) 883 VITAMIN B12 LEVEL eCW1 ([facility]) ID Date Data Source TOTAL IRON BINDING CAPACIT 12/19/2019 12:00:00 AM EST eCW1 ( [facility]) Name Value Range Interpretation Code Description Data Ana rce(s) Supporting Document(s) 79.6 13.2-45.0 PERCENT SATURATION eCW1 ([facility]) 309 50-170 IRON (FE) eCW1 ([facility]) 388 250-450 TOTAL IRON BINDING CAPACI TY eCW1 ([facility]) ID Date Data Source FERRITIN 12/19/2019 12:00:00 AM EST eCW1 ([facility]) Name Value Range Interpretation Code Description Data Ana rce(s) Supporting Document(s) 47 8-252 FERRITIN eCW1 ([facility]) ID Date Data Source SERUM PROTEIN ELECTROPHORESIS 12/19/2019 12:00:00 AM EST eCW 1 ([facility]) Name Value Range Interpretation Code Description Data Ana rce(s) Supporting Document(s) 53.7 55.8-66.1 ALBUMIN % eCW1 ([facility]) 7.2 3.2-6.5 GPKP-7-TQRISWLBL % eCW1 ([facility]) 5.3 2.9-4.9 HHHUM-4-HQWFMPUA % eCW1 ([facility]) 11.8 7.1-11.8 YGMGB-7-JMVHRQFHQ % eCW1 ([facility]) 6.6 4.7-7.2 BTDI-6-VGLPHNPYJ % eCW1 ([facility]) 3.81 3.29-5.55 ALBUMIN eCW1 ([facility]) 0.47 0.28-0.60 CEDK-5-HJDYVVIGS eCW1 ([facility]) 0.84 0.42-0.99 IOALD-7-WCGPAOETX eCW1 ([facility]) 15.4 11.1-18.8 GAMMA GLOBULIN % eCW1 ([facility]) 0.38 0.17-0.41 BOVTL-2-LKASKQWVP eCW1 ([facility]) 7.1 6.4-8.2 TOTAL PROTEIN eCW1 ([facility]) SEE COMMENT SPEP INTERPRETATION eCW1 ([facility]) 0.51 0.19-0.55 YSHQ-8-HTHSZZNNK eCW1 ([facility]) 1.09 0.65-1.58 GAMMA GLOBULINS eCW1 ([facility]) ID Date Data Source Comprehensive Metabolic Profile (CMP) 12/19/2019 12:00:00 AM EST eCW1 ([facility]) Name Value Range Interpretation Code Description Data Ana rce(s) Supporting Document(s) 77 70-100 GLUCOSE, FASTING eCW1 ([facility]) 0.73 0.55-1.30 CREATININE FOR GFR eCW1 ([facility]) > 60.0 >45 GLOMERULAR FILTRATION RATE eCW 1 ([facility]) 9 7-18 BLOOD UREA NITROGEN eCW1 ([facility]) 139 136-145 SODIUM LEVEL eCW1 ([facility]) 9.0 8.8-10.2 CALCIUM LEVEL eCW1 ([facility]) 4.2 3.5-5.1 POTASSIUM SERUM eCW1 ([facility]) 105 98-107 CHLORIDE LEVEL eCW1 ([facility]) 29 21-32 CARBON DIOXIDE LEVEL eCW1 ([facility]) 104 45-117 ALKALINE PHOSPHATASE eCW1 ([facility]) 24 7-37 AST/SGOT eCW1 ([facility]) 7.1 6.4-8.2 TOTAL PROTEIN eCW1 ([facility]) 22 12-78 ALT/SGPT eCW1 ([facility]) 0.4 0.2-1.0 BILIRUBIN,TOTAL eCW1 ([facility]) 3.8 3.2-5.2 ALBUMIN eCW1 ([facility]) 1.15 1.00-1.93 ALBUMIN/GLOBULIN RATIO eCW1 ([facility]) ID Date Data Source CBC with Differential 12/19/2019 12:00:00 AM EST eCW1 ([facility]) Name Value Range Interpretation Code Description Data Ana rce(s) Supporting Document(s) 11.9 12.0-15.5 HEMOGLOBIN eCW1 ([facility]) 6.3 4.0-10.0 WHITE BLOOD COUNT eCW1 ([facility]) 4.86 4.00-5.40 RED BLOOD COUNT eCW1 ([facility]) 24.5 27.0-33.0 MEAN CORPUSCULAR HEMOGLOB IN eCW1 ([facility]) 84.0 80.0-96.0 MEAN CORPUSCULAR VOLUME e CW1 ([facility]) 40.8 36.0-47.0 HEMATOCRIT eCW1 ([facility]) 29.2 32.0-36.5 MEAN CORPUSCULAR HGB CONC eCW1 ([facility]) 27.2 11.5-14.5 RED CELL DISTRIBUTION WID TH eCW1 ([facility]) 23.4 24.0-44.0 LYMPH % eCW1 ([facility]) 60.0 36.0-66.0 NEUTROPHILS % eCW1 ([facility]) 274 150-450 PLATELET COUNT, AUTOMATED eCW1 ([facility]) 3.8 1.5-8.5 NEUTROPHILS # eCW1 ([facility]) 4.4 0.0-3.0 EOS % eCW1 ([facility]) 0.6 0.0-1.0 BASO % eCW1 ([facility]) 11.4 0.0-5.0 MONO % eCW1 ([facility]) 0.3 0.0-0.5 EOS # eCW1 ([facility]) 1.5 1.5-5.0 LYMPH # eCW1 ([facility]) 0.7 0.0-0.8 MONO # eCW1 ([facility]) 0.0 0.0-0.2 BASO # eCW1 ([facility]) ID Date Data Source [id number] 12/14/2019 02:11:18 PM EST [facility] INFORMATIONPatient MRN Name Date of Age Gend*PT [id number] Leanna Goodwin 1955 64 years F OPPT Location Admission Date/Time Visit ID Attending Provider --- --- --- Linwood Harden MD([id number]) EPI ID CSN Admitting Provider [id number] ---name: Leanna Martin: [id number]: 1955Infectious Disease Progress NoteWhich consisted of ongoing psychiatric illness 64-year-old female withhistory of prior cigarette use/vaping and status post prior surgery on the hospitalized (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 At that point he was noted to be anemic and wantedto proceed with work-up For 6 weeks including scheduled guaiac screening EGD andcolonoscopy possible continuation of proceeding with anti-MAC therapy.3. Noted weight gain from 165.8- 174 pounds. 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 Al o it was felt the pt m ight benefit in the futurebinaural amplification at a later date for medical clearance by an ENTphysician. Also if vertigo symptoms continue to worsen then VNG video nystagmographyevaluation may be beneficial to assess the vestibular system due to symptoms ofvertigo.The pt underwent Opthalmological evaluation via Dr Shields at [facility]. She noted the patient was complaining of occasional flashes oflight in the left eye lasting a few seconds occurring once or twice a day andhave been occurring from onset. Of time. The patient has this is not happenedin the past month since evaluation there. She underwent a series of testsperformed 11/07, , keratoconjunctivitis sicca both eyes mild slowly worseningnoted No new medications started She remains on Sulfasalazine for her RASubjective: The patient states he underwent EGD and colonoscopy and was toldthat she is bleeding More Than Suspected in Her Stomach She Is Planning onFurther Follow-Up with Her Primary Care Physician within the n ext Month, inregards to her issues with bleeding and anemia" stable for any new medicationsfor the next month or so which is ok by me. No fevers or chills. Cough isslowly getting better for the last 2 weeks it has become nonproductive thepatient is not losing weight she is gaining weightReview of Systems:All systems were reviewed and found negative except for those mentioned in theHPI.See abovePhysical ExamWeight up from 174-181 pounds 5 foot 4 inches T 98.5 BP 167/94-155/91 P 92Body mass index is 31.07 kg/m .General Appearance: Pleasant, cooperative, alert and oriented [id number]: see belowHead: NormocephalicEyes: Extraocular movements intact, pupils equal and reactive to light andaccomodationThroat: No thrushNeck: Supple no lymphadenopathy, no JVD, no thyromegaly, no bruitsHeart: Regular rate and rhythm, S1, S2 no S3, no S4, no rubs, no murmursLungs: Clear to auscultation and percussion NO E-A changes NO changes on thnumber " 99"Breasts: N/AAbdomen: Soft,overweight non-tender, positive bowel sounds, nohepatosplenomegaly, no masses, No nodulesExtremities: No clubbing, cyanosis, or edemaSkin: no lesionsLymph Nodes: No cervical, axillary, or inguinal adenopathyNeurologic:con versational follows simple requestsMisc Findings: see aboveThe remainder of the physical exam is noncontributory.Medications:Prior to Admission medicationsMedication Sig Start Date End Date Taking? Authorizing Provideralbuterol (PROVENTIL HFA;VENTOLIN HFA) 108 (90 Base) MCG/ACT inhaler Inhale 2puffs every 6 (six) hours as needed for wheezing Yes Historical Provider, Christoferscorbic acid (VITAMIN C) 500 MG tablet Take 500 mg by mouth daily YesHistorical Provider, Christoferspirin EC 81 MG EC tablet Take 81 mg by mouth daily Yes Historical Provider,Christofertorvastatin (LIPITOR) 40 MG tablet Take 40 mg by mouth daily Yes HistoricalProviderChristoferzelastine (ASTELIN) 0.1 % nasal spray 2 sprays into each nostril 2 (two) timesa day Use in each nostril as directed Yes Historical Provider, YARIAILY ELODIA (THERAGRAN) per tablet Take 1 tablet by mouth daily Yes HistoricalProviderYariivalproex (DEPAKOTE) 500 MG 24 hr tablet Take 500 mg by mouth daily YesHistorical Provider, YARIULoxetine (CYMBALTA) 60 MG capsule Take 60 mg by mouth daily Yes HistoricalProvider MDferrous sulfate 325 (65 FE) MG tablet Take 325 mg by mouth daily with breakfastYes Historical Provider, Fluticasone Furoate-Vilanterol (BREO ELLIPT A) 200-25 MCG/INH AEPB Inhale 1 puffdaily Yes Historical Provider, HYDROcodone-acetaminophen (NORCO) 5-325 MG per tablet 10/25/19 Yes HistoricalProviLenin stevenvothyroxine (SYNTHROID, LEVOTHROID) 112 MCG tablet Take 1 tablet (112 mcgtotal) by mouth daily 06/23/19 Yes Rocky Arauz MDpantoprazole (PROTONIX) 20 MG tablet Take 20 mg by mouth daily Yes HistoricalProvimaurizio, SHINEARoxetine (PAXIL) 30 MG tablet Take 30 mg by mouth every morning YesHistorical Provider, NandiniOPINIRole (REQUIP) 1 MG tablet Take 1 mg by mouth nightly Yes HistoricalProvimaurizio, TayeulfaSALAzine (AZULFIDINE) 500 MG tablet TK 1 T PO BID 11/21/19 Yes HistoricalProMD shirintraZODone (DESYREL) 100 MG tablet Take 100 mg by mouth nightly Yes HistoricalProviYair steven on 12/13/2019Component Date Value Ref Range Status [age] 0112[birth year]13[birth year]2019 [age] Final GFR ESTIMATED FEMALE 12/13/2019 89.0 59.0 - 130.0 FinalOffice Visit on 12/13/2019Component Date Value Ref Range Status WBC 12/13/2019 6.70 4.10 - 10.90 X10 Final Lymphs 12/13/2019 25.40 10.00 - 58.50 % Final Monocytes Relative 12/13/2019 7.40 0.10 - 24.00 % Final GR% 12/13/2019 67.20 37.00 - 92.00 % Final Lymphocytes Absolute 12/13/2019 1.70 0.60 - 4.10 X10 Final Monocytes Absolute 12/13/2019 0.40 0.00 - 1.80 X10 Final Granulocyte Ab 12/13/2019 4.60 2.00 - 7.80 X10 Final RBC 12/13/2019 4.89 4.20 - 6.30 X10 Final Hemoglobin 12/13/2019 11.30* 12.00 - 18.00 g/dL Final Hematocrit 12/13/2019 38.10 37.00 - 51.00 % Final MCV 12/13/2019 78.00* 80.00 - 97.00 fL Final MCH 12/13/2019 23.10* 26.00 - 32.00 pg Final MCHC 12/13/2019 29.60* 31.00 - 36.00 g/dL Final RDW 12/13/2019 21.40* 11.50 - 14.50 % Final Platelets 12/13/2019 255.00 140.00 - 440.00 X10 Final MPV 12/13/2019 6.80* 7.00 - 11.00 fL Final TSH 12/13/2019 8.64* 0.34 - 4.82 uIU/mL Final GLUCOSE 12/13/2019 86.0 70.0 - 110.0 MG/DL Final Urea nitrogen 12/13/2019 18.0 7.0 - 18.0 MG/DL Final Creatinine 12/13/2019 0.7 0.6 - 1.3 MG/DL Final Sodium 12/13/2019 137.0 136.0 - 145.0 mmol/L Final Potassium 12/13/2019 4.9 3.5 - 5.1 mmol/L Final Chloride 12/13/2019 99.0 98.0 - 107.0 mmol/L Final Total CO2, Cap 12/13/2019 28.0 21.0 - 32.0 mmol/L Final Calcium 12/13/2019 9.7 8.5 - 10.1 mg/dL Final GLUCOSE 10/18/2019 119 mg/dL Final Urea nitrogen 10/18/2019 13 4 - 21 mg/dL Final Creatinine 10/18/2019 0.60 0.50 - 1.10 mg/dL Final Potassium 10/18/2019 4.4 3.4 - 5.3 mmol/L Final Sodium 10/18/2019 141 137 - 147 mmol/L Final GFR 10/18/2019 >60 Final Triglycerides 10/18/2019 59 40 - 160 mg/dL Final Cholesterol 10/18/2019 146 0 - 200 mg/dL Final LDL Calculated 10/18/2019 57 0 - 160 mg/dL Final HDL 10/18/2019 77* 35 - 70 mg/dL Final ALT 10/18/2019 20 7 - 35 U/L Final AST 10/18/2019 19 13 - 35 U/L Final Bilirubin, Total 10/18/2019 0.3 mg/dL Final TSH 10/18/2019 4.90 0.41 - 5.90 uIU/mL FinalResults from last 7 daysLab Units 12/13/201332WBC X10 6.70HEMOGLOBIN g/dL 11.30*HEMATOCRIT % 38.10Invalid input(s): LABALBUResults from last 7 daysLab Units 12/13/2013536846RPRXJZ mmol/L 137.0POTASSIUM mmol/L 4.9CHLORIDE mmol/L 99.0BUN MG/DL 18.0CREATININE MG/DL 0.7GLUCOSE MG/DL 86.0CALCIUM mg/dL 9.7Results from last 7 daysLab Units 12/13/201332WBC X10 6.70HEMOGLOBIN g/dL 11.30*HEMATOCRIT % 38.10Results from last 7 daysLab Units 12/13/201332WBC X10 6.70BUN MG/DL 18.0CREATININE MG/DL 0.7Estimated Creatinine Clearance: 82 mL/min (based on SCr of 0.7 mg/dL).ResultsCMP:Lab ResultsComponent Value Date NA 137.0 12/13/2019 K 4.9 12/13/2019 CL 99.0 12/13/2019 CO2 28 07/04/2019 ANIONGAP 9 07/04/2019 BUN 18.0 12/13/2019 CREATININE 0.7 12/13/2019 BCR 9.4 (L) 07/04/2019 GLU 86.0 12/13/2019 CALCIUM 9.7 12/13/2019 ALBUMIN 2.7 (L) 07/04/2019 GLOB 5.2 (H) 07/04/2019 AGRC 0.5 07/04/2019 ALKPHOS 104 10/03/2019 LABBILI 0.3 10/18/2019 AST 19 10/18/2019 ALT 20 10/18/2019 GFRAA >60 07/04/2019 GFRNONAA >60 07/04/2019Additional Data: 11/02 sputum culture AFB smear negative no growth so farRadiological Findings: No new dataActive Problems:Impression: 64 years old with multiple medical problems includingrheumatoid arthritis with prior Xeljanz now on Sulfasalazine for 3-4 months.She came off of both Xeljanz last summer after being hospitalized with acavitary pneumonia that grew MSSA, venancio Albicans, and subsequentlypseudomonas Oryzihabitans, 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 12.75 ATS/IDSAcriteria for therapy with 4 drug combination including erythromycin 250 mg bloodculture samples 20 mg daily plus ethambutol 1200 mg daily plus aerosolizedamikacin 500 mg daily with monthly CBC monthly CMP monthly amikacin trough andfollow-up CT scan in 3 to 6 months after initiating therapy and improved to 15.6with 08/15/2018) discussed that going on his medications could affect. Druglevels including her current Abilify atorvastatin Depakote ropinirole trazodoneand [facility] antimicrobial stewardsip pharmacist Ana Rosa.suggested having the primarycare change atorvastatin to crestor if she goes on anti MAC therapy. Last CTwas112/13/18 as described in my 11/02/19 note. However in the meantime. Shedeveloped anemia and is still undergoing a work-up for that her cough isdecreasing and is now nonproductive and she is gaining weightAssessment and Plan:1. Although the patient satisfies IDSA/ATScriteria for anti MAC therapy.,Clinical course suggests the possibility of 1 of a variety of colonizers. Mostrecent sputum 11/02 negative so far At this poi the pt prefers proceed withcompletion of her anemia work-up and will see how her improving and now nonproductive cough and general health do over time before reconsidering AntiMAC therapy She is willing if producing any sputum to continue monthly sputumsfor AFB and tentatively plan 3 month clinic follow up in February [facility] 2020Linwood Harden MD12/14/201:28 PMPlease note that from 1:28 to 2:09 pm was spent directly with the pt whilereviewing the patients record, interviewing and examining the patient, andspeaing with clinic RN Name Value Range Interpretation Code Description Data Ana e(s) Supporting Document(s) ID Date Data Source [id number] 11/25/2019 02:20:00 PM EST MINOR ([facility]) Name Value Range Interpretation Code Description Data Ana rce(s) Supporting Document(s) Color of Urine michelle MEDENT ([facility]) Leukocytes + MEDENT ([facility]) Appearance of Urine clear MEDENT ([facility]) Spec [place] 1.015 MEDENT ([facility]) pH of Urine by Test strip 6 MEDE NT ([facility]) Inhouse Glucose norm MEDENT ([facility]) Ketones [Presence] in Urine by Test strip - MEDENT ([facility]) Protein [Presence] in Urine by Test strip trace MEDENT ([facility]) Nitrate [Presence] in Urine - ME DENT ([facility]) Urobilinogen norm MEDENT ([facility]) Blood type and Indirect antibody screen panel - Blood - MEDENT ([facility]) Bilirubin.total [Presence] in Urine by Test strip - MEDENT ([facility]) Procedure Social History Code Duration Value Status Description Data Source(s ) Smoking 01/14/2021 12:00:00 AM EST Former Smoker completed Former Smoker eCW1 ([facility]) Smoking 01/14/2021 12:00:00 AM EST Former Smoker completed Former Smoker eCW1 ([facility]) Smoking 11/27/2020 12:00:00 AM EST Former Smoker completed Former Smoker eCW1 ([facility]) Smoking 11/27/2020 12:00:00 AM EST Former Smoker completed Former Smoker eCW1 ([facility]) Smoking 11/27/2020 12:00:00 AM EST Former Smoker completed Former Smoker eCW1 ([facility]) Smoking 11/27/2020 12:00:00 AM EST Former Smoker completed Former Smoker eCW1 ([facility]) Smoking 11/27/2020 12:00:00 AM EST Former Smoker completed Former Smoker eCW1 ([facility]) Smoking 11/27/2020 12:00:00 AM EST Former Smoker completed Former Smoker eCW1 ([facility]) Smoking 11/27/2020 12:00:00 AM EST Former Smoker completed Former Smoker eCW1 ([facility]) Alcohol intake 11/20/2020 12:00:00 AM EST Not Currently completed [facility] Cigarette pack-years 11/20/2020 12:00:00 AM EST UNK completed [facility] Cigarettes smoked current (pack per day) - Reported 11/20/20 20 12:00:00 AM EST UNK completed [facility] Smoking 11/20/2020 12:00:00 AM EST Former smoker completed Former smoker [facility] Smoking 07/13/2020 12:00:00 AM EDT Patient is a former smoker completed Patient is a former smoker [facility] ([facility], ) Vital Signs ID Date Data Source UNK Name Value Range Interpretation Code Description Data Source(s) Body weight 2784 [oz_av] 2784 [oz_av] PETRA ([facility]) Systolic blood pressure 145 mm[Hg] 145 mm[Hg] Wilma ARANGO ([facility]) Body mass index (BMI) [Ratio] 29.4 kg/m2 29.4 k g/m2 PETRA ([facility]) Body height 64.5 [in_i] 64.5 [in_i] PETRA ([facility]) Diastolic blood pressure 83 mm[Hg] 83 mm[Hg] PETRA ([facility]) [place] body weight 120 [lb_av] 120 [lb_av] MEDEN T ([facility], ) Body mass index (BMI) [Ratio] 29.7 kg/m2 29.7 k g/m2 [facility] ([facility], ) Body weight 173.00 [lb_av] 173.00 [lb_av] MEDEN T ([facility], ) Body height 64 [in_i] 64 [in_i] [facility] ([facility], ) 5'4" Respiratory rate 12 /min 12 /min [facility] ( [facility], ) Body weight 2768 [oz_av] 2768 [oz_av] PETRA ([facility]) Systolic blood pressure 131 mm[Hg] 131 mm[Hg] Wilma ARANGO ([facility]) Body mass index (BMI) [Ratio] 29.2 kg/m2 29.2 k g/m2 PETRA ([facility]) Body height 64.5 [in_i] 64.5 [in_i] PETRA ([facility]) Diastolic blood pressure 76 mm[Hg] 76 mm[Hg] PETRA ([facility]) Body weight 2768 [oz_av] 2768 [oz_av] PETRA ([facility]) Systolic blood pressure 131 mm[Hg] 131 mm[Hg] A THENA ([facility]) Body mass index (BMI) [Ratio] 29.2 kg/m2 29.2 k g/m2 PETRA ([facility]) Body height 64.5 [in_i] 64.5 [in_i] PETRA ([facility]) Diastolic blood pressure 76 mm[Hg] 76 mm[Hg] PETRA ([facility]) Body weight 2768 [oz_av] 2768 [oz_av] PETRA ([facility]) Systolic blood pressure 131 mm[Hg] 131 mm[Hg] A THENA ([facility]) Body mass index (BMI) [Ratio] 29.2 kg/m2 29.2 k g/m2 PETRA ([facility]) Body height 64.5 [in_i] 64.5 [in_i] PETRA ([facility]) Diastolic blood pressure 76 mm[Hg] 76 mm[Hg] PETRA ([facility]) Diastolic blood pressure 71 mm[Hg] 71 mm[Hg] eCW1 ([facility]) Systolic blood pressure 132 mm[Hg] 132 mm[Hg] e CW1 ([facility]) Body temperature 98.3 [degF] 98.3 [degF] eCW1 ( [facility]) Respiratory rate 18 /min 18 /min eCW1 ([facility]) Heart rate 95 /min 95 /min eCW1 ([facility]) Body mass index (BMI) [Ratio] 29.66 kg/m2 29.66 kg/m2 W1 ([facility]) Body height 64 [in_i] 64 [in_i] eCW1 ([facility]) Body weight 172.8 [lb_av] 172.8 [lb_av] eCW1 ([facility]) Oxygen saturation in Arterial blood by Pulse oximetry 93 % 93 % [facility] Body mass index (BMI) [Ratio] 29.52 kg/m2 29.52 kg/m2 [facility] Body weight 78.019 kg 78.019 kg [facility] Body height 162.6 cm 162.6 cm [facility] Heart rate 72 /min 72 /min [facility] Diastolic blood pressure 72 mm[Hg] 72 mm[Hg] [facility] Systolic blood pressure 130 mm[Hg] 130 mm[Hg] [facility] [place] body weight 120 [lb_av] 120 [lb_av] MEDEN T ([facility], ) Body mass index (BMI) [Ratio] 29.7 kg/m2 29.7 k g/m2 MEDENT ([facility], ) Body weight 173.00 [lb_av] 173.00 [lb_av] MEDEN T ([facility], ) Body height 64 [in_i] 64 [in_i] MEDENT ([facility], ) 5'4" Respiratory rate 12 /min 12 /min [facility] ( [facility], ) Diastolic blood pressure 63 mm[Hg] 63 mm[Hg] eCW1 ([facility]) Systolic blood pressure 133 mm[Hg] 133 mm[Hg] e CW1 ([facility]) Body temperature 98.0 [degF] 98.0 [degF] eCW1 ( [facility]) Respiratory rate 18 /min 18 /min eCW1 ([facility]) Heart rate 100 /min 100 /min eCW1 ([facility]) Body mass index (BMI) [Ratio] 29.62 kg/m2 29.62 kg/m2 eCW1 ([facility]) Body height 64 [in_i] 64 [in_i] eCW1 ([facility]) Body weight 172.6 [lb_av] 172.6 [lb_av] eCW1 ([facility]) Body weight 2776 [oz_av] 2776 [oz_av] PETRA ([facility]) Systolic blood pressure 130 mm[Hg] 130 mm[Hg] A [facility] ([facility]) Body mass index (BMI) [Ratio] 29.3 kg/m2 29.3 k g/m2 PETRA ([facility]) Body height 64.5 [in_i] 64.5 [in_i] PETRA ([facility]) Diastolic blood pressure 82 mm[Hg] 82 mm[Hg] PETRA ([facility]) Body weight 2776 [oz_av] 2776 [oz_av] PETRA ([facility]) Systolic blood pressure 130 mm[Hg] 130 mm[Hg] A [facility] ([facility]) Body mass index (BMI) [Ratio] 29.3 kg/m2 29.3 k g/m2 PETRA ([facility]) Body height 64.5 [in_i] 64.5 [in_i] PETRA ([facility]) Diastolic blood pressure 82 mm[Hg] 82 mm[Hg] PETRA ([facility]) Body weight 2776 [oz_av] 2776 [oz_av] PETRA ([facility]) Systolic blood pressure 130 mm[Hg] 130 mm[Hg] A [facility] ([facility]) Body mass index (BMI) [Ratio] 29.3 kg/m2 29.3 k g/m2 PETRA ([facility]) Body height 64.5 [in_i] 64.5 [in_i] PETRA ([facility]) Diastolic blood pressure 82 mm[Hg] 82 mm[Hg] PETRA ([facility]) Body weight 2776 [oz_av] 2776 [oz_av] PETRA ([facility]) Systolic blood pressure 130 mm[Hg] 130 mm[Hg] A [facility] ([facility]) Body mass index (BMI) [Ratio] 29.3 kg/m2 29.3 k g/m2 PETRA ([facility]) Body height 64.5 [in_i] 64.5 [in_i] PETRA ([facility]) Diastolic blood pressure 82 mm[Hg] 82 mm[Hg] PETRA ([facility]) Diastolic blood pressure 67 mm[Hg] 67 mm[Hg] eCW1 ([facility]) Systolic blood pressure 140 mm[Hg] 140 mm[Hg] e CW1 ([facility]) Body temperature 98.3 [degF] 98.3 [degF] eCW1 ( [facility]) Respiratory rate 16 /min 16 /min eCW1 ([facility]) Heart rate 91 /min 91 /min eCW1 ([facility]) Body mass index (BMI) [Ratio] 30.04 kg/m2 30.04 kg/m2 eCW1 ([facility]) Body height 64 [in_i] 64 [in_i] eCW1 ([facility]) Body weight 175 [lb_av] 175 [lb_av] eCW1 ([facility]) Diastolic blood pressure 79 mm[Hg] 79 mm[Hg] eCW1 ([facility]) Systolic blood pressure 132 mm[Hg] 132 mm[Hg] e CW1 ([facility]) Body mass index (BMI) [Ratio] 29.18 kg/m2 29.18 kg/m2 eCW1 ([facility]) Body height 64 [in_i] 64 [in_i] eCW1 ([facility]) Body weight 77.11 kg 77.11 kg eCW1 ([facility]) Body weight 170 [lb_av] 170 [lb_av] eCW1 ([facility]) Diastolic blood pressure 70 mm[Hg] 70 mm[Hg] eCW1 ([facility]) Systolic blood pressure 122 mm[Hg] 122 mm[Hg] e CW1 ([facility]) Body temperature 98.1 [degF] 98.1 [degF] eCW1 ( [facility]) Heart rate 96 /min 96 /min eCW1 ([facility]) Body mass index (BMI) [Ratio] 29.21 kg/m2 29.21 kg/m2 eCW1 ([facility]) Body height 64 [in_i] 64 [in_i] eCW1 ([facility]) Body weight 77.2 kg 77.2 kg eCW1 ([facility]) Body weight 170.2 [lb_av] 170.2 [lb_av] eCW1 ([facility]) Body mass index (BMI) [Ratio] 29.3 kg/m2 29.3 k g/m2 MEDENT ([facility]) Body weight 171.00 [lb_av] 171.00 [lb_av] MEDEN T ([facility]) Body height 64 [in_i] 64 [in_i] MEDENT ([facility]) 5'4" Body temperature 96.8 [degF] 96.8 [degF] [facility] ([facility]) Oxygen saturation in Arterial blood by Pulse oximetry 94 % 94 % [facility] ([facility]) Heart rate 93 /min 93 /min [facility] ([facility]) Diastolic blood pressure 80 mm[Hg] 80 mm[Hg] [facility] ([facility]) Systolic blood pressure 120 mm[Hg] 120 mm[Hg] M EDENT ([facility]) Body weight 79.380 kg 79.[address] [facility] ([facility]) Body mass index (BMI) [Ratio] 30.0 kg/m2 30.0 k g/m2 [facility] ([facility]) Body weight 175.00 [lb_av] 175.00 [lb_av] MEDEN T ([facility], ) pt states Body height 64 [in_i] 64 [in_i] [facility] ([facility]) 5'4" Body temperature 97.7 [degF] 97.7 [degF] [facility] ([facility]) Body weight 83.916 kg 83.[address] [facility] ([facility]) Body mass index (BMI) [Ratio] 31.8 kg/m2 31.8 k g/m2 [facility] ([facility]) Body weight 185.00 [lb_av] 185.00 [lb_av] MEDEN T ([facility]) pt states Body height 64 [in_i] 64 [in_i] MEDENT ([facility]) 5'4" Body temperature 97.2 [degF] 97.2 [degF] [facility] ([facility]) Oxygen saturation in Arterial blood by Pulse oximetry 93 % 93 % [facility] ([facility]) Heart rate 89 /min 89 /min MEDENT ([facility]) Diastolic blood pressure 80 mm[Hg] 80 mm[Hg] MEDENT ([facility]) Systolic blood pressure 130 mm[Hg] 130 mm[Hg] M EDENT ([facility]) Body weight 84.823 kg 84.[address] [facility] ([facility]) Body mass index (BMI) [Ratio] 32.1 kg/m2 32.1 k g/m2 [facility] ([facility]) Body weight 187.00 [lb_av] 187.00 [lb_av] MEDEN T ([facility]) Body height 64 [in_i] 64 [in_i] MEDENT ([facility]) 5'4" Diastolic blood pressure 74 mm[Hg] 74 mm[Hg] eCW1 ([facility]) Systolic blood pressure 132 mm[Hg] 132 mm[Hg] e CW1 ([facility]) Body temperature 98.4 [degF] 98.4 [degF] eCW1 ( [facility]) Respiratory rate /min eCW1 ([facility]) Heart rate 89 /min 89 /min eCW1 ([facility]) Body mass index (BMI) [Ratio] 33.30 kg/m2 33.30 kg/m2 eCW1 ([facility]) Body height 64 [in_us] 64 [in_us] eCW1 ([facility]) Body weight Measured 194 [lb_av] 194 [lb_av] eC W1 ([facility]) Body weight 84.823 kg 84.823 kg MEDENT ([facility]) Body mass index (BMI) [Ratio] 32.1 kg/m2 32.1 k g/m2 [facility] ([facility]) Body weight 187.00 [lb_av] 187.00 [lb_av] MEDEN T ([facility]) Body height 64 [in_i] 64 [in_i] [facility] ([facility]) 5'4" Body weight 84.823 kg 84.[address] [facility] ([facility]) Body mass index (BMI) [Ratio] 32.1 kg/m2 32.1 k g/m2 [facility] ([facility]) Body weight 187.00 [lb_av] 187.00 [lb_av] MEDEN T ([facility]) Body height 64 [in_i] 64 [in_i] [facility] ([facility]) 5'4" Oxygen saturation in Arterial blood by Pulse oximetry 95 % 95 % [facility] ([facility]) Heart rate 96 /min 96 /min [facility] ([facility]) Diastolic blood pressure 80 mm[Hg] 80 mm[Hg] [facility] ([facility]) Systolic blood pressure 142 mm[Hg] 142 mm[Hg] [facility] Body weight 78.473 kg 78.[address] [facility] ([facility]) Body mass index (BMI) [Ratio] 29.7 kg/m2 29.7 k g/m2 [facility] ([facility]) Body weight 173.00 [lb_av] 173.00 [lb_av] MEDEN T ([facility]) Body height 64 [in_i] 64 [in_i] [facility] ([facility]) 5'4" Body height 64 [in_i] 64 [in_i] [facility] ([facility]) 5'4" Diastolic blood pressure 70 mm[Hg] 70 mm[Hg] eCW1 ([facility]) Systolic blood pressure 132 mm[Hg] 132 mm[Hg] e CW1 ([facility]) Body temperature 98.8 [degF] 98.8 [degF] eCW1 ( [facility]) Respiratory rate 20 /min 20 /min eCW1 ([facility]) Heart rate 85 /min 85 /min eCW1 ([facility]) Body mass index (BMI) [Ratio] 30.72 kg/m2 30.72 kg/m2 W1 ([facility]) Body height 64 [in_us] 64 [in_us] eCW1 ([facility]) Body weight Measured 179.0 [lb_av] 179.0 [lb_av ] eCW1 ([facility]) Body weight 80.457 kg 80.457 kg MEDENT ([facility]) Body weight 177.38 [lb_av] 177.38 [lb_av] MEDEN T ([facility]) Oxygen saturation in Arterial blood by Pulse oximetry 92 % 92 % MEDENT ([facility]) room air Respiratory rate 18 /min 18 /min MEDENT ( [facility]) Body temperature 97.5 [degF] 97.5 [degF] MEDENT ([facility]) Heart rate 88 /min 88 /min MEDENT ([facility]) Diastolic blood pressure 76 mm[Hg] 76 mm[Hg] MEDENT ([facility]) Systolic blood pressure 159 mm[Hg] 159 mm[Hg] M EDENT ([facility]) Patient Treatment Plan of Care Planned Activity Planned Date Details Description Data Source (s) duloxetine 60 MG Delayed Release Oral Capsule 01/17/2021 12:00:00 A M EST PETRA ([facility]) Estradiol 0.1 MG/ML Vaginal Cream 01/14/2021 12:00:00 AM EST eCW1 ([facility]) Estradiol 0.1 MG/ML Vaginal Cream 01/14/2021 12:00:00 AM EST eCW1 ([facility]) tizanidine 2 MG Oral Tablet 11/13/2020 12:00:00 AM EST eCW1 ([facility]) tizanidine 2 MG Oral Tablet 11/13/2020 12:00:00 AM EST eCW1 ([facility]) tizanidine 2 MG Oral Tablet 11/13/2020 12:00:00 AM EST eCW1 ([facility]) 12 HR Guaifenesin 600 MG Extended Release Oral Tablet [Mucinex] 11/13/2020 12:00:00 AM EST [facility] tizanidine 2 MG Oral Tablet 11/13/2020 12:00:00 AM EST eCW1 ([facility]) tizanidine 2 MG Oral Tablet 11/13/2020 12:00:00 AM EST eCW1 ([facility]) tizanidine 2 MG Oral Tablet 11/13/2020 12:00:00 AM EST eCW1 ([facility]) tizanidine 2 MG Oral Tablet 11/13/2020 12:00:00 AM EST eCW1 ([facility]) pregabalin 150 MG Oral Capsule [Lyrica] 11/12/2020 12:00:00 AM EST eCW1 ([facility]) pregabalin 150 MG Oral Capsule [Lyrica] 11/12/2020 12:00:00 AM EST eCW1 ([facility]) pregabalin 150 MG Oral Capsule [Lyrica] 11/12/2020 12:00:00 AM EST eCW1 ([facility]) pregabalin 150 MG Oral Capsule [Lyrica] 11/12/2020 12:00:00 AM EST eCW1 ([facility]) pregabalin 100 MG Oral Capsule [Lyrica] 11/12/2020 12:00:00 AM EST eCW1 ([facility]) pregabalin 100 MG Oral Capsule [Lyrica] 11/12/2020 12:00:00 AM EST eCW1 ([facility]) pregabalin 75 MG Oral Capsule [Lyrica] 11/12/2020 12:00:00 AM EST eCW1 ([facility]) pregabalin 150 MG Oral Capsule [Lyrica] 11/12/2020 12:00:00 AM EST eCW1 ([facility]) pregabalin 150 MG Oral Capsule [Lyrica] 11/12/2020 12:00:00 AM EST eCW1 ([facility]) pregabalin 150 MG Oral Capsule [Lyrica] 11/12/2020 12:00:00 AM EST eCW1 ([facility]) pregabalin 75 MG Oral Capsule [Lyrica] 11/12/2020 12:00:00 AM EST eCW1 ([facility]) pregabalin 75 MG Oral Capsule [Lyrica] 11/12/2020 12:00:00 AM EST eCW1 ([facility]) pregabalin 75 MG Oral Capsule [Lyrica] 11/12/2020 12:00:00 AM EST eCW1 ([facility]) Acetaminophen 300 MG / Codeine Phosphate 30 MG Oral Ta blet 11/02/2020 12:00:00 AM EST eCW1 ([facility]) Acetaminophen 300 MG / Codeine Phosphate 30 MG Oral Ta blet 11/02/2020 12:00:00 AM EST eCW1 ([facility]) Acetaminophen 300 MG / Codeine Phosphate 30 MG Oral Ta blet 11/02/2020 12:00:00 AM EST eCW1 ([facility]) Acetaminophen 300 MG / Codeine Phosphate 30 MG Oral Ta blet 11/02/2020 12:00:00 AM EST eCW1 ([facility]) Acetaminophen 300 MG / Codeine Phosphate 30 MG Oral Ta blet 11/02/2020 12:00:00 AM EST eCW1 ([facility]) Acetaminophen 500 MG Oral Tablet 11/01/2020 12:00:00 AM EST eCW1 ([facility]) Acetaminophen 500 MG Oral Tablet 11/01/2020 12:00:00 AM EST eCW1 ([facility]) Acetaminophen 500 MG Oral Tablet 11/01/2020 12:00:00 AM EST eCW1 ([facility]) Acetaminophen 500 MG Oral Tablet 11/01/2020 12:00:00 AM EST eCW1 ([facility]) Acetaminophen 500 MG Oral Tablet 11/01/2020 12:00:00 AM EST eCW1 ([facility]) Acetaminophen 500 MG Oral Tablet 11/01/2020 12:00:00 AM EST eCW1 ([facility]) gabapentin 100 MG Oral Capsule 10/31/2020 12:00:00 AM EST [facility] gabapentin 100 MG Oral Capsule 10/31/2020 12:00:00 AM EST eCW1 ([facility]) gabapentin 100 MG Oral Capsule 10/31/2020 12:00:00 AM EST eCW1 ([facility]) gabapentin 100 MG Oral Capsule 10/31/2020 12:00:00 AM EST eCW1 ([facility]) gabapentin 100 MG Oral Capsule 10/31/2020 12:00:00 AM EST eCW1 ([facility]) gabapentin 100 MG Oral Capsule 10/31/2020 12:00:00 AM EST eCW1 ([facility]) gabapentin 100 MG Oral Capsule 10/31/2020 12:00:00 AM EST eCW1 ([facility]) Levothyroxine Sodium 0.15 MG Oral Tablet 10/19/2020 12:00:00 AM EST [facility] Ergocalciferol [id number] UNT Oral Capsule 10/19/2020 12:00:00 AM EST [facility] Levothyroxine Sodium 0.2 MG Oral Tablet 09/14/2020 12:00:00 AM EDT [facility] Diclofenac Sodium 75 MG Delayed Release Oral Tablet 08/16/20 12:00:00 AM EDT [facility] meloxicam 7.5 MG Oral Tablet 06/04/2020 12:00:00 AM EDT [facility] 24 HR mirabegron 50 MG Extended Release Oral Tablet [M yrbetriq] 06/04/2020 12:00:00 AM EDT [facility] 7 ACTUAT umeclidinium 0.0625 MG/ACTUAT Dry Powder Inha ler [Incruse] 06/04/2020 12:00:00 AM EDT [facility] Rosuvastatin calcium 10 MG Oral Tablet 05/28/2020 12:00:00 AM EDT [facility] ropinirole 2 MG Oral Tablet 05/28/2020 12:00:00 AM EDT [facility] Cyclobenzaprine hydrochloride 10 MG Oral Tablet 04/23/2020 12:00:00 AM EDT [facility] Prednisone 10 MG Oral Tablet 04/05/2020 12:00:00 AM EDT [id number] ([facility]) Levothyroxine Sodium 0.125 MG Oral Tablet 01/28/2020 12:00:00 AM ES T [facility] Sulfasalazine 500 MG Oral Tablet 11/21/2019 12:00:00 AM EST [facility] (doxylamine) 25 mg tablet Take by oral route. PETRA ([facility]) Trazodone Hydrochloride 100 MG Oral Tablet PETRA ([facility]) Sulfasalazine 500 MG Oral Tablet PETRA ([facility]) Sulfamethoxazole 800 MG / Trimethoprim 160 MG Oral Tablet PETRA ([facility]) ropinirole 1 MG Oral Tablet PETRA ([facility]) pregabalin 75 MG Oral Capsule PETRA ([facility]) Prednisone 10 MG Oral Tablet PETRA ([facility]) prednisolone acetate 10 MG/ML Ophthalmic Suspension PETRA ([facility]) Hydrocortisone 10 MG/ML / Neomycin 3.5 M G/ML / Polymyxin B 24094 UNT/ML Otic Suspension PETRA ([facility]) Naproxen 500 MG Oral Tablet PETRA ([facility]) Meclizine Hydrochloride 12.5 MG Oral Tablet PETRA ([facility]) Levothyroxine Sodium 0.2 MG Oral Tablet PETRA ([facility]) Levothyroxine Sodium 0.125 MG Oral Tablet PETRA ([facility]) Levothyroxine Sodium 0.112 MG Oral Tablet PETRA ([facility]) Levofloxacin 500 MG Oral Tablet PETRA ([facility]) Hydroxyzine Hydrochloride 10 MG Oral Tablet PETRA ([facility]) Acetaminophen 325 MG / Hydrocodone Bitartrate 5 MG Oral Tablet PETRA ([facility]) gabapentin 100 MG Oral Capsule PETRA ([facility]) Erythromycin 0.005 MG/MG Ophthalmic Ointment PETRA ([facility]) Ergocalciferol 07889 UNT Oral Capsule PETRA ([facility]) 24 HR Divalproex Sodium 500 MG Extended Release Oral Tablet PETRA ([facility]) Diclofenac Sodium 75 MG Delayed Release Oral Tablet PETRA ([facility]) Diclofenac Sodium 0.01 MG/MG Topical Gel PETRA ([facility]) Cyclobenzaprine hydrochloride 10 MG Oral Tablet PETRA ([facility]) Clindamycin 300 MG Oral Capsule PETRA ([facility]) Cephalexin 500 MG Oral Capsule PETRA ([facility]) fluticasone furoate 0.1 MG/ACTUAT / ling nterol 0.025 MG/ACTUAT Dry Powder Inhaler PETRA ([facility]) Amoxicillin 875 MG / Clavulanate 125 MG Oral Tablet PETRA ([facility]) Aleve PETRA ([facility]) Acetaminophen 300 MG / Codeine Phosphate 30 MG Oral Tablet PETRA ([facility]) Acetaminophen 300 MG / Codeine Phosphate 30 MG Oral Tablet PETRA ([facility]) Trazodone Hydrochloride 100 MG Oral Tablet PETRA ([facility]) Sulfasalazine 500 MG Oral Tablet PETRA ([facility]) Sulfamethoxazole 800 MG / Trimethoprim 160 MG Oral Tablet PETRA ([facility]) ropinirole 2 MG Oral Tablet PETRA ([facility]) pregabalin 75 MG Oral Capsule PETRA ([facility]) Prednisone 10 MG Oral Tablet PETRA ([facility]) prednisolone acetate 10 MG/ML Ophthalmic Suspension PETRA ([facility]) Hydrocortisone 10 MG/ML / Neomycin 3.5 M G/ML / Polymyxin B 17028 UNT/ML Otic Suspension PETRA ([facility]) Naproxen 500 MG Oral Tablet PETRA ([facility]) Meclizine Hydrochloride 12.5 MG Oral Tablet PETRA ([facility]) Levothyroxine Sodium 0.2 MG Oral Tablet PETRA ([facility]) Levothyroxine Sodium 0.125 MG Oral Tablet PETRA ([facility]) Levothyroxine Sodium 0.112 MG Oral Tablet PETRA ([facility]) Levofloxacin 500 MG Oral Tablet PETRA ([facility]) Hydroxyzine Hydrochloride 10 MG Oral Tablet PETRA ([facility]) Acetaminophen 325 MG / Hydrocodone Bitartrate 5 MG Oral Tablet PETRA ([facility]) gabapentin 100 MG Oral Capsule PETRA ([facility]) Erythromycin 0.005 MG/MG Ophthalmic Ointment PETRA ([facility]) Ergocalciferol 78471 UNT Oral Capsule PETRA ([facility]) duloxetine 60 MG Delayed Release Oral Capsule PETRA ([facility]) 24 HR Divalproex Sodium 500 MG Extended Release Oral Tablet PETRA ([facility]) Diclofenac Sodium 75 MG Delayed Release Oral Tablet PETRA ([facility]) Diclofenac Sodium 0.01 MG/MG Topical Gel PETRA ([facility]) Cyclobenzaprine hydrochloride 10 MG Oral Tablet PETRA ([facility]) Clindamycin 300 MG Oral Capsule PETRA ([facility]) Cephalexin 500 MG Oral Capsule PETRA ([facility]) fluticasone furoate 0.1 MG/ACTUAT / ling nterol 0.025 MG/ACTUAT Dry Powder Inhaler PETRA ([facility]) Amoxicillin 875 MG / Clavulanate 125 MG Oral Tablet PETRA ([facility]) Aleve PETRA ([facility]) 14 ACTUAT fluticasone furoate 0.1 MG/ACT UAT / vilanterol 0.025 MG/ACTUAT Dry Powder Inhaler [facility] 24 HR Divalproex Sodium 500 MG Extended Release Oral Tablet [facility] pantoprazole 20 MG Delayed Release Oral Tablet [facility] duloxetine 60 MG Delayed Release Oral Capsule [facility] 30 ACTUAT fluticasone furoate 0.2 MG/ACT UAT / vilanterol 0.025 MG/ACTUAT Dry Powder Inhaler [facility] Trazodone Hydrochloride 100 MG Oral Tablet PETRA ([facility]) Sulfasalazine 500 MG Oral Tablet PETRA ([facility]) Sulfamethoxazole 800 MG / Trimethoprim 160 MG Oral Tablet PETRA ([facility]) ropinirole 2 MG Oral Tablet PETRA ([facility]) Prednisone 10 MG Oral Tablet PETRA ([facility]) prednisolone acetate 10 MG/ML Ophthalmic Suspension PETRA ([facility]) Hydrocortisone 10 MG/ML / Neomycin 3.5 M G/ML / Polymyxin B [id number] UNT/ML Otic Suspension PETRA ([facility]) Naproxen 500 MG Oral Tablet PETRA ([facility]) 12 HR Guaifenesin 600 MG Extended Release Oral Tablet [Mucinex] PETRA ([facility]) Meclizine Hydrochloride 12.5 MG Oral Tablet PETRA ([facility]) Levothyroxine Sodium 0.2 MG Oral Tablet PETRA ([facility]) Levothyroxine Sodium 0.125 MG Oral Tablet PETRA ([facility]) Levothyroxine Sodium 0.112 MG Oral Tablet PETRA ([facility]) Levofloxacin 500 MG Oral Tablet PETRA ([facility]) Hydroxyzine Hydrochloride 10 MG Oral Tablet PETRA ([facility]) Acetaminophen 325 MG / Hydrocodone Bitartrate 5 MG Oral Tablet PETRA ([facility]) duloxetine 60 MG Delayed Release Oral Capsule PETRA ([facility]) 24 HR Divalproex Sodium 500 MG Extended Release Oral Tablet PETRA ([facility]) Diclofenac Sodium 75 MG Delayed Release Oral Tablet PETRA ([facility]) Diclofenac Sodium 0.01 MG/MG Topical Gel PETRA ([facility]) Cyclobenzaprine hydrochloride 10 MG Oral Tablet PETRA ([facility]) Cephalexin 500 MG Oral Capsule PETRA ([facility]) Amoxicillin 875 MG / Clavulanate 125 MG Oral Tablet PETRA ([facility]) Acetaminophen 300 MG / Codeine Phosphate 30 MG Oral Tablet PETRA ([facility]) Trazodone Hydrochloride 100 MG Oral Tablet PETRA ([facility]) Sulfasalazine 500 MG Oral Tablet PETRA ([facility]) Sulfamethoxazole 800 MG / Trimethoprim 160 MG Oral Tablet PETRA ([facility]) ropinirole 2 MG Oral Tablet PETRA ([facility]) pregabalin 75 MG Oral Capsule PETRA ([facility]) prednisolone acetate 10 MG/ML Ophthalmic Suspension PETRA ([facility]) Hydrocortisone 10 MG/ML / Neomycin 3.5 M G/ML / Polymyxin B 28784 UNT/ML Otic Suspension PETRA ([facility]) Naproxen 500 MG Oral Tablet PETRA ([facility]) Meclizine Hydrochloride 12.5 MG Oral Tablet PETRA ([facility]) Levothyroxine Sodium 0.2 MG Oral Tablet PETRA ([facility]) Levothyroxine Sodium 0.125 MG Oral Tablet PETRA ([facility]) Levothyroxine Sodium 0.112 MG Oral Tablet PETRA ([facility]) Levofloxacin 500 MG Oral Tablet PETRA ([facility]) Hydroxyzine Hydrochloride 10 MG Oral Tablet PETRA ([facility]) Acetaminophen 325 MG / Hydrocodone Bitartrate 5 MG Oral Tablet PETRA ([facility]) Erythromycin 0.005 MG/MG Ophthalmic Ointment PETRA ([facility]) duloxetine 60 MG Delayed Release Oral Capsule PERTA ([facility]) 24 HR Divalproex Sodium 500 MG Extended Release Oral Tablet PETRA ([facility]) Diclofenac Sodium 75 MG Delayed Release Oral Tablet PETRA ([facility]) Diclofenac Sodium 0.01 MG/MG Topical Gel PETRA ([facility]) Cyclobenzaprine hydrochloride 10 MG Oral Tablet PETRA ([facility]) Clindamycin 300 MG Oral Capsule PETRA ([facility]) Cephalexin 500 MG Oral Capsule PETRA ([facility]) fluticasone furoate 0.1 MG/ACTUAT / ling nterol 0.025 MG/ACTUAT Dry Powder Inhaler PETRA ([facility]) Amoxicillin 875 MG / Clavulanate 125 MG Oral Tablet PETRA ([facility]) Aleve PETRA ([facility]) Acetaminophen 300 MG / Codeine Phosphate 30 MG Oral Tablet PETRA ([facility])
[2021-01-19 09:29] VITALS: BP 173/84
[2021-01-19 10:03] LABS: BASO % 0.4 % (0.0-1.0); EOS # 0.3 10^3/uL (0.0-0.5); EOS % 4.1 % (0.0-3.0); HEMATOCRIT 39.8 % (36.0-47.0); HEMOGLOBIN 12.1 g/dl (12.0-15.5); LYMPH # 0.8 10^3/uL (1.5-5.0); LYMPH % 11.3 % (24.0-44.0); MEAN CORPUSCULAR HEMOGLOBIN 28.9 pg (27.0-33.0); MEAN CORPUSCULAR HGB CONC 30.4 g/dl (32.0-36.5); MONO # 0.7 10^3/uL (0.0-0.8); MONO % 9.8 % (2.0-8.0); NEUTROPHILS # 5.4 10^3/uL (1.5-8.5); NEUTROPHILS % 74.1 % (36.0-66.0); PLATELET COUNT, AUTOMATED 225 10^3/uL (150-450); RED BLOOD COUNT 4.19 10^6/uL (4.00-5.40); WHITE BLOOD COUNT 7.2 10^3/uL (4.0-10.0)
[2021-01-19] MEDS ORDERED: MORPHINE 2 MG/ML 1ML VIAL (J2270) IV PRN (10:15)
[2021-01-19] MEDS ORDERED: ONDANSETRON 4MG/2ML VIAL IV ONE (10:15)
[2021-01-19] MEDS ORDERED: MORPHINE 2 MG/ML 1ML VIAL (J2270) As Ordered ONE (10:54)
[2021-01-19] MEDS ORDERED: ONDANSETRON 4MG/2ML VIAL As Ordered ONE (10:54)
[2021-01-19] MEDS ORDERED: ACETAMINOPHEN 500 MG TAB As Ordered ONE (11:37)
[2021-01-19 13:08] LABS: ALBUMIN 3.1 GM/DL (3.2-5.2); ALT/SGPT 16 U/L (12-78); BILIRUBIN,TOTAL 0.4 MG/DL (0.2-1.0); BLOOD UREA NITROGEN 12 MG/DL (7-18); CALCIUM LEVEL 8.8 MG/DL (8.8-10.2); CARBON DIOXIDE LEVEL 28 MEQ/L (21-32); CHLORIDE LEVEL 107 MEQ/L (98-107); CPK CREATINE PHOSPHOKINASE 80 U/L (26-192); CREATININE FOR GFR 0.41 MG/DL (0.55-1.30); GLOMERULAR FILTRATION RATE > 60.0 (>45); GLUCOSE, FASTING 96 MG/DL (70-100); POTASSIUM SERUM 4.8 MEQ/L (3.5-5.1); SODIUM LEVEL 141 MEQ/L (136-145); TOTAL PROTEIN 6.6 GM/DL (6.4-8.2)
--- OUTSIDE RECORDS SUMMARY | 2021-01-19 13:31 | CCD ---
Author Author [facility] Organization [facility] Address Unknown Phone Unavailable Care Team Providers Care Pharmacist Hospital Name Role Phone Richie Jordan MD Unavailable [...] Unavailable Richie Jordan MD Unavailable Unavailable Richie Joradn MD Unavailable Unavailable Richie Jordan MD Unavailable [...] Jordan MD Unavailable Unavailable Fons, M Deanna LENS MATCHER Unavailable Unavailable Fons, M Deanna LENS MATCHER Unavailable Unavailable Fons, M Deanna LENS MATCHER Unavailable Unavailable Fons, M Deanna LENS MATCHER Unavailable Unavailable Fons, M Deanna LENS MATCHER Unavailable Unavailable Fons, M Deanna LENS MATCHER Unavailable Unavailable Fons, M Deanna LENS MATCHER Unavailable Unavailable Fons, M Deanna LENS MATCHER Unavailable Unavailable Fons, M Deanna LENS MATCHER Unavailable Unavailable Fons, M Deanna LENS MATCHER Unavailable Unavailable Fons, M Deanna LENS MATCHER Unavailable Unavailable Fons, M Deanna LENS MATCHER Unavailable Unavailable Fons, M Deanna LENS MATCHER Unavailable Unavailable Fons, M Deanna LENS MATCHER Unavailable Unavailable Fons, M Deanna LENS MATCHER Unavailable Unavailable Fons, M Deanna LENS MATCHER Unavailable Unavailable Fons, M Deanna LENS MATCHER Unavailable Unavailable Fons, M Deanna LENS MATCHER Unavailable Unavailable Fons, M Deanna LENS MATCHER Unavailable Unavailable Fons, M Deanna LENS MATCHER Unavailable Unavailable Fons, M Deanna LENS MATCHER Unavailable Unavailable Fons, M Deanna LENS MATCHER Unavailable Unavailable Fons, M Deanna LENS MATCHER Unavailable Unavailable Fons, M Deanna LENS MATCHER Unavailable Unavailable Fons, M Deanna LENS MATCHER Unavailable Unavailable Fons, M Deanna LENS MATCHER Unavailable Unavailable Fons, M Deanna LENS MATCHER Unavailable Unavailable Fons, M Deanna LENS MATCHER Unavailable Unavailable Fons, M Deanna LENS MATCHER Unavailable Unavailable Fons, M Deanna LENS MATCHER Unavailable Unavailable Fons, M Deanna LENS MATCHER Unavailable Unavailable Fons, M Deanna LENS MATCHER Unavailable Unavailable Fons, M Deanna LENS MATCHER Unavailable Unavailable Fons, M Deanna LENS MATCHER Unavailable Unavailable Fons, M Deanna LENS MATCHER Unavailable Unavailable Fons, M Deanna LENS MATCHER Unavailable Unavailable Fons, M Deanna LENS MATCHER Unavailable Unavailable Fons, M Deanna LENS MATCHER Unavailable Unavailable Fons, M Deanna LENS MATCHER Unavailable Unavailable Fons, M Deanna LENS MATCHER Unavailable Unavailable Fons, M Deanna LENS MATCHER Unavailable Unavailable Fons, M Deanna LENS MATCHER Unavailable Unavailable Fons, M Deanna LENS MATCHER Unavailable Unavailable Fons, M Deanna LENS MATCHER Unavailable Unavailable Fons, M Deanna LENS MATCHER Unavailable Unavailable Fons, M Deanna LENS MATCHER Unavailable Unavailable Fons, M Deanna LENS MATCHER Unavailable Unavailable Fons, M Deanna LENS MATCHER Unavailable Unavailable Fons, M Deanna LENS MATCHER Unavailable Unavailable Fons, M Deanna LENS MATCHER Unavailable Unavailable Fons, M Deanna LENS MATCHER Unavailable Unavailable Fons, M Deanna LENS MATCHER Unavailable Unavailable Fons, M Deanna LENS MATCHER Unavailable Unavailable Fons, M Deanna LENS MATCHER Unavailable Unavailable Fons, M Deanna LENS MATCHER Unavailable Unavailable Scordo, Eloisa HARRIS Unavailable Unavailable [...] Unavailable Unavailable April Harden MD Unavailable Unavailable Bleckley, V KIMBERLY PA-C Unavailable Unavailable Bleckley, V KIMBERLY PA-C Unavailable Unavailable Bleckley, V KIMBERLY PA-C Unavailable Unavailable Aminata, V KIMBERLY PA-C Unavailable Unavailable Bleckley, V KIMBERLY PA-C Unavailable Unavailable Bleckley, V KIMBERLY PA-C Unavailable Unavailable Bleckley, V KIMBERLY PA-C Unavailable Unavailable SEARS, A RICH DO Unavailable Unavailable SEARS, A RICH DO Unavailable Unavailable SEARS, A RCIH DO Unavailable Unavailable SEARS, A RICH DO [...] T CARY MD Unavailable Unavailable OBEN, T CRAY MD Unavailable Unavailable OBEN, T CARY MD [...] MD Unavailable Unavailable AdamsonMikal MD Unavailable Unavailable AdasmonMikal MD Unavailable Unavailable AdamsonMikal MD Unavailable Unavailable [...] MD Unavailable Unavailable AdamsonMikal MD Unavailable Unavailable Adamson, L Elfego MD [...] is protected by Article 27-F of the [facility] Public Health law. If you continue you may have access to information: Regarding HIV / AIDS; Provided by facilities licensed or operated by the [facility] Office of Mental Health; or Provided by the [facility] Office for People With Developmental Disabilities. If such information is present, then the following [facility] mandated warning applies: This information has been [...] law may result in a fine or alf sentence or both. A general authorization for the release of medical or other information is NOT sufficient authorization for further disc losure. Allergies and Adverse Reactions Type Description Substance Reaction Status Data Source(s ) Drug allergy Doxycycline Hyclate Doxycycline Rash Active eC W1 ([facility]) Drug allergy Permethrin Permethrin Rash Active eCW1 ([facility]) Drug allergy DOXYCYCLINE DOXYCYCLINE [facility] Family History Family Member Name Family Member Gender Family Member Status Date o f Status Description Data Source(s) Unknown Unknown Problem MEDENT ([facility], [facility]) Encounters Encounter Providers Location Date Indications Data Source(s ) Vickie Oro PA-C: [address], [place] [address], Ph. Attender: Vickie HARRIS [facility] 01/17/2021 12:00:00 AM EST PETRA ([facility]) Unknown [address] [facility] [address] 01/11/2021 12:00:00 AM EST eCW1 ([facility]) Office Visit Attender: Kate Peralta MD Main office - [facility] [place] 12/28/2020 11:15:00 AM EST MEDENT ([facility], ) Vickie Oro PA-C: [address] [place] [address], Ph. Attender: Vickie [facility]IS [facility] 12/28/2020 12:00:00 AM EST PETRA ([facility]) Vickie Oro PA-C: [address] [place] [address], Ph. Attender: Vickie H[facility] 12/28/2020 12:00:00 AM EST PETRA ([facility]) Unknown [address] [facility] [address] 12/18/2020 12:00:00 AM EST eCW1 ([facility]) Unknown [address] [facility] [address] 12/11/2020 12:00:00 AM EST [facility]CW1 ([facility]) Unknown [address] [facility] [address] 12/04/2020 12:00:00 AM EST eCW1 ([facility]) Unknown [address] [facility] [address] 12/04/2020 12:00:00 AM EST eCW1 ([facility]) Vickie Oro PA-C: [address] [place] [address], Ph. Attender: Vickie [facility] 12/03/2020 12:00:00 AM EST PETRA ([facility]) Vickie Oro PA-C: [address] [place] [address], Ph. Attender: [facility]ickie [facility] 12/03/2020 12:00:00 AM EST PETRA ([facility]) Unknown [address] [facility] [address] 12/03/2020 12:00:00 AM EST [facility] Vickie Oro PA-C: [address] [place] [address], Ph. Attender: Vickie [facility] 12/03/2020 12:00:00 AM EST PETRA ([facility]) Unknown [address] [facility] [address] 12/03/2020 12:00:00 AM EST eCW1 ([facility]) Outpatient [address] [facility] [address] 11/27/2020 12:00:00 AM EST eCW1 ([facility]) Outpatient Attender: KIMBERLY [email or web address] 08:09:33 AM EST - 11/20/2020 10:07:37 AM EST [facility] Unknown [address] [facility] [address] 11/20/2020 12:00:00 AM EST eCW1 ([facility]) Unknown [address] [facility] [address] 11/19/2020 12:00:00 AM EST eCW1 ([facility]) Outpatient Attender: Kate Peralta MD Main office - [facility] [place] 11/14/2020 12:00:00 PM EST MEDENT ([facility], ) Kerwin Jordan MD: [address] [place] [phone], Ph. Attender: Kerwin Jordan MD [facility] 11/13/2020 12:00:00 AM EST PETRA ([facility]) Unknown [address] [facility] [address] 11/13/2020 12:00:00 AM EST eCW1 ([facility]) Kerwin Jordan MD: [address] [place] [phone], Ph. Attender: Kerwin Jordan MD [facility] Medical 11/13/2020 12:00:00 AM EST PETRA ([facility]) Kerwin Jordan MD: [address] [place] [phone], Ph. Attender: Kerwin Jordan MD [facility] Medical 11/13/2020 12:00:00 AM EST PETRA ([facility]) Unknown [address] [facility] [address] 11/12/2020 12:00:00 AM EST eCW1 ([facility]) Outpatient [address] [facility] [address] 11/12/2020 12:00:00 AM EST eCW1 ([facility]) Unknown [address] [facility] [address] 11/12/2020 12:00:00 AM EST eCW1 ([facility]) Unknown [address] [facility] [address] 11/08/2020 12:00:00 AM EST eCW1 ([facility]) Unknown [address] [facility] [address] 11/08/2020 12:00:00 AM EST eCW1 ([facility]) Vickie Oor PA-C: [address], [place] [address], Ph. Attender: Vickie [facility] 11/07/2020 12:00:00 AM EST PETRA ([facility]) Vickie Oro PA-C: [address], [place] [address], Ph. Attender: Vickie [facility] 11/07/2020 12:00:00 AM EST PETRA ([facility]) Vickie Oro PA-C: [address], [place] [address], Ph. Attender: Vickie [facility] 11/07/2020 12:00:00 AM EST PETRA ([facility]) Vickie Oro PA-C: [address], [place] [address], Ph. Attender: Vickie [facility] 11/07/2020 12:00:00 AM EST PETRA ([facility]) Unknown [address] [facility] [address] 11/05/2020 12:00:00 AM EST eCW1 ([facility]) Unknown [address] [facility] [address] 11/02/2020 12:00:00 AM EST eCW1 ([facility]) Unknown [address] [facility] [address] 11/01/2020 12:00:00 AM EST eCW1 ([facility]) Outpatient [address] [facility] [place] [address] 10/31/2020 12:00:00 AM EST eCW1 ([facility]) ( GYNANN) [facility] Yearly [employer] Exam [address] [place] [address] 10/22/2020 12:00:00 AM EST eCW1 ([facility]) Unknown [address] [facility] [address] 10/15/2020 12:00:00 AM EST eCW1 ([facility]) Unknown [address] [facility] [address] 09/27/2020 12:00:00 AM EST eCW1 ([facility]) Office Visit, Est Pt., Level 4 PC [address] [place] [address] 09/26/2020 12:00:00 AM EST eCW1 ([facility]) Outpatient Attender: Elfego Adamson MD Physical Therapy 09/06/2020 0 8:30:00 AM EDT MEDENT ([facility]) [facility] Rheumatology [address] [place] [address] 06/26/2020 12:00:00 AM EDT eCW1 ([facility]) Outpatient Attender: RICH Canseco/Robyn/Amado/Reindl 06/18/2020 02:30:00 PM EDT MEDENT ([facility]) Outpatient Attender: Deanna JUNIOR [email or web address] 0 01:35:50 PM EDT - 06/13/2020 02:32:38 PM EDT [facility] Outpatient Attender: Osbaldo Zhang/Robyn/Amado/Re indl 04/27/2020 02:00:00 PM EDT MEDENT ([facility]) Outpatient Referrer: Jacob Mckay MD 04/24/2020 05:57:00 AM E DT [facility] Rheumatology [address] [place] [address] 04/05/2020 12:00:00 AM EDT eCW1 ([facility]) [facility] Rheumatology [address] [place] [address] 04/05/2020 12:00:00 AM EDT eCW1 ([facility]) [facility] Rheumatology Center [address] [place] [phone] 03/19/2020 12:00:00 AM EDT eCW1 ([facility]) Outpatient Referrer: Jacob Mckay MD 02/28/2020 06:02:00 AM E DT [facility] Outpatient Attender: Osbaldo Zhang/Robyn/Amado/Re indl 02/23/2020 09:00:00 AM EDT MEDENT ([facility]) Outpatient Referrer: Jacob Mckay MD 02/19/2020 10:53:00 AM E DT [facility] Outpatient Attender: RICH Canseco/[place]/Amado/Reindl 01/31/2020 01:00:00 PM EDT MEDENT ([facility]) Outpatient Attender: Osbaldo Zhang/Robyn/Amado/Re indl 01/27/2020 10:00:00 AM EST MEDENT ([facility]) [facility] Rheumatology [address] [place] [address] 01/18/2020 12:00:00 AM EST eCW1 ([facility]) Outpatient Referrer: Jacob Mckay MD 01/04/2020 01:04:[address] [facility] Rheumatology [address] [place] [phone] 12/19/2019 12:00:00 AM EST eCW1 ([facility]) [facility] Rheumatology [address] [place] [phone] 12/19/2019 12:00:00 AM EST eCW1 ([facility]) Outpatient Attender: Linwood Harden MDRefer rer: Linwood Harden MDConsultant: Linwood Harden MD ES1-PC 12/14/2019 12:00:[address] [facility] Outpatient Attender: Reanna HARRIS [email or web address] 12:00:00 AM EST [facility] Outpatient Referrer: Jacob Mckay MD 11/29/2019 07:45:00 PM E [facility] Rheumatology Center [address] [place] [address] 11/29/2019 12:00:00 AM EST eCW1 ([facility]) Outpatient Attender: CARY GRADNA MDConsultant: DELMY MAK MD 11/25/2019 12:34:00 PM EST - 11/25/2019 12:34:00 PM EST [facility] Outpatient Attender: Angelica Goldberg MS, RPA-C [facility] 11/25/2019 12:00:00 PM EST MEDENT ([facility]) Immunizations Vaccine Date Status Description Data Source(s) Pneumococcal conjugate PCV 13 01/17/2021 10:51:00 AM EST complet ed .5 mL PETRA ([facility]) Medications Medication Brand Name Start Date Product Form Dose Route Admi nistrative Instructions Pharmacy Instructions Status Indications Reaction Description Data Source(s) duloxetine 60 MG Delayed Release Oral Ca psule duloxetine 60 mg capsule,delayed release TK 1 C PO QD duloxetine 60 mg capsule,delayed release TK 1 C PO QD 01/17/2021 12:00:00 AM EST completed duloxetine 60 MG Delayed Release Oral Capsule PETRA ([facility]) Estradiol 0.1 MG/ML Vaginal Cream Estradiol 0.1 MG/GM Estrad iol 0.1 MG/GM 01/14/2021 12:00:00 AM EST active Estradiol 0.1 MG/GM eCW1 ([facility]) Estradiol 0.1 MG/ML Vaginal Cream Estradiol 0.1 MG/GM Estrad iol 0.1 MG/GM 01/14/2021 12:00:00 AM EST active Estradiol 0.1 MG/GM eCW1 ([facility]) ropinirole 2 MG Oral Tablet Ropinirole HCL 01/02/2021 12:00:00 AM EST active MEDENT ([facility], ) 24 HR mirabegron 50 MG Extended Release Oral Tablet [M yrbetriq] Myrbetriq 50 MG Myrbetriq 50 MG 11/27/2020 12:00:00 AM EST 1.0 {tablet} active Myrbetriq 50 MG eCW1 ([facility]) 24 HR mirabegron 50 MG Extended Release Oral Tablet [M yrbetriq] Myrbetriq 50 MG Myrbetriq 50 MG 11/27/2020 12:00:00 AM EST 1.0 {tablet} active Myrbetriq 50 MG eCW1 ([facility]) 24 HR mirabegron 50 MG Extended Release Oral Tablet [M yrbetriq] Myrbetriq 50 MG Myrbetriq 50 MG 11/27/2020 12:00:00 AM EST 1.0 {tablet} active Myrbetriq 50 MG eCW1 ([facility]) 24 HR mirabegron 50 MG Extended Release Oral Tablet [M yrbetriq] Myrbetriq 50 MG Myrbetriq 50 MG 11/27/2020 12:00:00 AM EST 1.0 {tablet} active Myrbetriq 50 MG eCW1 ([facility]) 24 HR mirabegron 50 MG Extended Release Oral Tablet [M yrbetriq] Myrbetriq 50 MG Myrbetriq 50 MG 11/27/2020 12:00:00 AM EST 1.0 {tablet} active Myrbetriq 50 MG eCW1 ([facility]) 24 HR mirabegron 50 MG Extended Release Oral Tablet [M yrbetriq] Myrbetriq 50 MG Myrbetriq 50 MG 11/27/2020 12:00:00 AM EST 1.0 {tablet} active Myrbetriq 50 MG eCW1 ([facility]) 24 HR mirabegron 50 MG Extended Release Oral Tablet [M yrbetriq] Myrbetriq 50 MG Myrbetriq 50 MG 11/27/2020 12:00:00 AM EST 1.0 {tablet} active Myrbetriq 50 MG eCW1 ([facility]) 24 HR mirabegron 50 MG Extended Release Oral Tablet [M yrbetriq] Myrbetriq 50 MG Myrbetriq 50 MG 11/27/2020 12:00:00 AM EST 1.0 {tablet} active Myrbetriq 50 MG eCW1 ([facility]) 24 HR mirabegron 50 MG Extended Release Oral Tablet [M yrbetriq] Myrbetriq 50 MG Myrbetriq 50 MG 11/27/2020 12:00:00 AM EST 1.0 {tablet} active Myrbetriq 50 MG eCW1 ([facility]) tizanidine 2 MG Oral Tablet Tizanidine HCl 2 MG Tizanidine H Cl 2 MG 11/13/2020 12:00:00 AM EST 1.0 {tablet_as_needed} active Tizanidine HCl 2 MG eCW1 ([facility]) tizanidine 2 MG Oral Tablet Tizanidine HCl 2 MG Tizanidine H Cl 2 MG 11/13/2020 12:00:00 AM EST 1.0 {tablet_as_needed} active Tizanidine HCl 2 MG eCW1 ([facility]) tizanidine 2 MG Oral Tablet Tizanidine HCl 2 MG Tizanidine H Cl 2 MG 11/13/2020 12:00:00 AM EST 1.0 {tablet_as_needed} active Tizanidine HCl 2 MG eCW1 ([facility]) tizanidine 2 MG Oral Tablet Tizanidine HCl 2 MG Tizanidine H Cl 2 MG 11/13/2020 12:00:00 AM EST 1.0 {tablet_as_needed} active Tizanidine HCl 2 MG eCW1 ([facility]) tizanidine 2 MG Oral Tablet Tizanidine HCl 2 MG Tizanidine H Cl 2 MG 11/13/2020 12:00:00 AM EST 1.0 {tablet_as_needed} active Tizanidine HCl 2 MG eCW1 ([facility]) tizanidine 2 MG Oral Tablet Tizanidine HCl 2 MG Tizanidine H Cl 2 MG 11/13/2020 12:00:00 AM EST 1.0 {tablet_as_needed} active Tizanidine HCl 2 MG eCW1 ([facility]) tizanidine 2 MG Oral Tablet Tizanidine HCl 2 MG Tizanidine H Cl 2 MG 11/13/2020 12:00:00 AM EST 1.0 {tablet_as_needed} active Tizanidine HCl 2 MG eCW1 ([facility]) tizanidine 2 MG Oral Tablet Tizanidine HCl 2 MG Tizanidine H Cl 2 MG 11/13/2020 12:00:00 AM EST 1.0 {tablet_as_needed} active Tizanidine HCl 2 MG eCW1 ([facility]) tizanidine 2 MG Oral Tablet Tizanidine HCl 2 MG Tizanidine H Cl 2 MG 11/13/2020 12:00:00 AM EST 1.0 {tablet_as_needed} active Tizanidine HCl 2 MG eCW1 ([facility]) tizanidine 2 MG Oral Tablet Tizanidine HCl 2 MG Tizanidine H Cl 2 MG 11/13/2020 12:00:00 AM EST 1.0 {tablet_as_needed} active Tizanidine HCl 2 MG eCW1 ([facility]) tizanidine 2 MG Oral Tablet Tizanidine HCl 2 MG Tizanidine H Cl 2 MG 11/13/2020 12:00:00 AM EST 1.0 {tablet_as_needed} active Tizanidine HCl 2 MG eCW1 ([facility]) tizanidine 2 MG Oral Tablet Tizanidine HCl 2 MG Tizanidine H Cl 2 MG 11/13/2020 12:00:00 AM EST 1.0 {tablet_as_needed} active Tizanidine HCl 2 MG eCW1 ([facility]) tizanidine 2 MG Oral Tablet Tizanidine HCl 2 MG Tizanidine H Cl 2 MG 11/13/2020 12:00:00 AM EST 1.0 {tablet_as_needed} active Tizanidine HCl 2 MG eCW1 ([facility]) tizanidine 2 MG Oral Tablet Tizanidine HCl 2 MG Tizanidine H Cl 2 MG 11/13/2020 12:00:00 AM EST 1.0 {tablet_as_needed} active Tizanidine HCl 2 MG eCW1 ([facility]) tizanidine 2 MG Oral Tablet Tizanidine HCl 2 MG Tizanidine H Cl 2 MG 11/13/2020 12:00:00 AM EST 1.0 {tablet_as_needed} active Tizanidine HCl 2 MG eCW1 ([facility]) 12 HR Guaifenesin 600 MG Extended Releas e Oral Tablet [Mucinex] MUCINEX 600 MG 12 hr tablet MUCINEX 600 MG 12 hr tablet 11/13/2020 12:00:00 AM EST 600 mg Oral active Take 600 mg by mouth 2 (two) times a day [facility] pregabalin 75 MG Oral Capsule [Lyrica] Lyrica 75 MG Lyrica 7 5 MG 11/12/2020 12:00:00 AM EST 1.0 {capsule} active L yrica 75 MG eCW1 ([facility]) pregabalin 150 MG Oral Capsule [Lyrica] Lyrica 150 MG Lyrica 150 MG 11/12/2020 12:00:00 AM EST 1.0 {capsule} active L yrica 150 MG eCW1 ([facility]) pregabalin 100 MG Oral Capsule [Lyrica] Lyrica 100 MG Lyrica 100 MG 11/12/2020 12:00:00 AM EST 1.0 {capsule} active L yrica 100 MG eCW1 ([facility]) pregabalin 150 MG Oral Capsule [Lyrica] Lyrica 150 MG Lyrica 150 MG 11/12/2020 12:00:00 AM EST 1.0 {capsule} active L yrica 150 MG eCW1 ([facility]) pregabalin 150 MG Oral Capsule [Lyrica] Lyrica 150 MG Lyrica 150 MG 11/12/2020 12:00:00 AM EST 1.0 {capsule} active L yrica 150 MG eCW1 ([facility]) pregabalin 75 MG Oral Capsule [Lyrica] Lyrica 75 MG Lyrica 7 5 MG 11/12/2020 12:00:00 AM EST 1.0 {capsule} active L yrica 75 MG eCW1 ([facility]) pregabalin 100 MG Oral Capsule [Lyrica] Lyrica 100 MG Lyrica 100 MG 11/12/2020 12:00:00 AM EST 1.0 {capsule} active L yrica 100 MG eCW1 ([facility]) pregabalin 75 MG Oral Capsule [Lyrica] Lyrica 75 MG Lyrica 7 5 MG 11/12/2020 12:00:00 AM EST 1.0 {capsule} active L yrica 75 MG eCW1 ([facility]) pregabalin 150 MG Oral Capsule [Lyrica] Lyrica 150 MG Lyrica 150 MG 11/12/2020 12:00:00 AM EST 1.0 {capsule} active L yrica 150 MG eCW1 ([facility]) pregabalin 75 MG Oral Capsule [Lyrica] Lyrica 75 MG Lyrica 7 5 MG 11/12/2020 12:00:00 AM EST 1.0 {capsule} active L yrica 75 MG eCW1 ([facility]) pregabalin 150 MG Oral Capsule [Lyrica] Lyrica 150 MG Lyrica 150 MG 11/12/2020 12:00:00 AM EST 1.0 {capsule} active L yrica 150 MG eCW1 ([facility]) pregabalin 150 MG Oral Capsule [Lyrica] Lyrica 150 MG Lyrica 150 MG 11/12/2020 12:00:00 AM EST 1.0 {capsule} active L yrica 150 MG eCW1 ([facility]ly [facility]) pregabalin 150 MG Oral Capsule [Lyrica] Lyrica 150 MG Lyrica 150 MG 11/12/2020 12:00:00 AM EST 1.0 {capsule} active L yrica 150 MG eCW1 ([facility]) pregabalin 150 MG Oral Capsule [Lyrica] Lyrica 150 MG Lyrica 150 MG 11/12/2020 12:00:00 AM EST 1.0 {capsule} active L yrica 150 MG eCW1 ([facility]) pregabalin 150 MG Oral Capsule [Lyrica] Lyrica 150 MG Lyrica 150 MG 11/12/2020 12:00:00 AM EST 1.0 {capsule} active L yrica 150 MG eCW1 ([facility]) Acetaminophen 300 MG / Codeine Phosphate 30 MG Oral Tablet Acetaminophen-Codeine #3 300-30 MG Acetaminophen-Codeine #3 300-30 MG 11/02/2020 12:00:00 AM EST 1.0 {tablet_as_needed} active Acetamino phen-Codeine #3 300-30 MG eCW1 ([facility]) Acetaminophen 300 MG / Codeine Phosphate 30 MG Oral Tablet Acetaminophen-Codeine #3 300-30 MG Acetaminophen-Codeine #3 300-30 MG 11/02/2020 12:00:00 AM EST 1.0 {tablet_as_needed} active Acetamino phen-Codeine #3 300-30 MG eCW1 ([facility]) Acetaminophen 300 MG / Codeine Phosphate 30 MG Oral Tablet Acetaminophen-Codeine #3 300-30 MG Acetaminophen-Codeine #3 300-30 MG 11/02/2020 12:00:00 AM EST 1.0 {tablet_as_needed} active Acetamino phen-Codeine #3 300-30 MG eCW1 ([facility]) Acetaminophen 300 MG / Codeine Phosphate 30 MG Oral Tablet Acetaminophen-Codeine #3 300-30 MG Acetaminophen-Codeine #3 300-30 MG 11/02/2020 12:00:00 AM EST 1.0 {tablet_as_needed} active Acetamino phen-Codeine #3 300-30 MG eCW1 ([facility]) Acetaminophen 300 MG / Codeine Phosphate 30 MG Oral Tablet Acetaminophen-Codeine #3 300-30 MG Acetaminophen-Codeine #3 300-30 MG 11/02/2020 12:00:00 AM EST 1.0 {tablet_as_needed} suspended Acetami nophen-Codeine #3 300-30 MG eCW1 ([facility]) Acetaminophen 300 MG / Codeine Phosphate 30 MG Oral Tablet Acetaminophen-Codeine #3 300-30 MG Acetaminophen-Codeine #3 300-30 MG 11/02/2020 12:00:00 AM EST 1.0 {tablet_as_needed} active Acetamino phen-Codeine #3 300-30 MG eCW1 ([facility]) Acetaminophen 300 MG / Codeine Phosphate 30 MG Oral Tablet Acetaminophen-Codeine #3 300-30 MG Acetaminophen-Codeine #3 300-30 MG 11/02/2020 12:00:00 AM EST 1.0 {tablet_as_needed} active Acetamino phen-Codeine #3 300-30 MG eCW1 ([facility]) Acetaminophen 300 MG / Codeine Phosphate 30 MG Oral Tablet Acetaminophen-Codeine #3 300-30 MG Acetaminophen-Codeine #3 300-30 MG 11/02/2020 12:00:00 AM EST 1.0 {tablet_as_needed} active Acetamino phen-Codeine #3 300-30 MG eCW1 ([facility]) Acetaminophen 300 MG / Codeine Phosphate 30 MG Oral Tablet Acetaminophen-Codeine #3 300-30 MG Acetaminophen-Codeine #3 300-30 MG 11/02/2020 12:00:00 AM EST 1.0 {tablet_as_needed} active Acetamino phen-Codeine #3 300-30 MG eCW1 ([facility]) Acetaminophen 300 MG / Codeine Phosphate 30 MG Oral Tablet Acetaminophen-Codeine #3 300-30 MG Acetaminophen-Codeine #3 300-30 MG 11/02/2020 12:00:00 AM EST 1.0 {tablet_as_needed} active Acetamino phen-Codeine #3 300-30 MG eCW1 ([facility]) Acetaminophen 300 MG / Codeine Phosphate 30 MG Oral Tablet Acetaminophen-Codeine #3 300-30 MG Acetaminophen-Codeine #3 300-30 MG 11/02/2020 12:00:00 AM EST 1.0 {tablet_as_needed} active Acetamino phen-Codeine #3 300-30 MG eCW1 ([facility]) Acetaminophen 300 MG / Codeine Phosphate 30 MG Oral Tablet Acetaminophen-Codeine #3 300-30 MG Acetaminophen-Codeine #3 300-30 MG 11/02/2020 12:00:00 AM EST 1.0 {tablet_as_needed} active Acetamino phen-Codeine #3 300-30 MG eCW1 ([facility]) Acetaminophen 300 MG / Codeine Phosphate 30 MG Oral Tablet Acetaminophen-Codeine #3 300-30 MG Acetaminophen-Codeine #3 300-30 MG 11/02/2020 12:00:00 AM EST 1.0 {tablet_as_needed} active Acetamino phen-Codeine #3 300-30 MG eCW1 ([facility]) Acetaminophen 300 MG / Codeine Phosphate 30 MG Oral Tablet Acetaminophen-Codeine #3 300-30 MG Acetaminophen-Codeine #3 300-30 MG 11/02/2020 12:00:00 AM EST 1.0 {tablet_as_needed} active Acetamino phen-Codeine #3 300-30 MG eCW1 ([facility]) Acetaminophen 300 MG / Codeine Phosphate 30 MG Oral Tablet Acetaminophen-Codeine #3 300-30 MG Acetaminophen-Codeine #3 300-30 MG 11/02/2020 12:00:00 AM EST 1.0 {tablet_as_needed} active Acetamino phen-Codeine #3 300-30 MG eCW1 ([facility]) Acetaminophen 300 MG / Codeine Phosphate 30 MG Oral Tablet Acetaminophen-Codeine #3 300-30 MG Acetaminophen-Codeine #3 300-30 MG 11/02/2020 12:00:00 AM EST 1.0 {tablet_as_needed} suspended Acetami nophen-Codeine #3 300-30 MG eCW1 ([facility]) Acetaminophen 300 MG / Codeine Phosphate 30 MG Oral Tablet Acetaminophen-Codeine #3 300-30 MG Acetaminophen-Codeine #3 300-30 MG 11/02/2020 12:00:00 AM EST 1.0 {tablet_as_needed} active Acetamino phen-Codeine #3 300-30 MG eCW1 ([facility]) Acetaminophen 300 MG / Codeine Phosphate 30 MG Oral Tablet Acetaminophen-Codeine #3 300-30 MG Acetaminophen-Codeine #3 300-30 MG 11/02/2020 12:00:00 AM EST 1.0 {tablet_as_needed} active Acetamino phen-Codeine #3 300-30 MG eCW1 ([facility]) Acetaminophen 300 MG / Codeine Phosphate 30 MG Oral Tablet Acetaminophen-Codeine #3 300-30 MG Acetaminophen-Codeine #3 300-30 MG 11/02/2020 12:00:00 AM EST 1.0 {tablet_as_needed} active Acetamino phen-Codeine #3 300-30 MG eCW1 ([facility]) Acetaminophen 300 MG / Codeine Phosphate 30 MG Oral Tablet Acetaminophen-Codeine #3 300-30 MG Acetaminophen-Codeine #3 300-30 MG 11/02/2020 12:00:00 AM EST 1.0 {tablet_as_needed} active Acetamino phen-Codeine #3 300-30 MG eCW1 ([facility]) Acetaminophen 500 MG Oral Tablet Acetaminophen 500 MG 2019 12:00:00 AM EST 2.0 {tablet_as_needed} active A cetaminophen 500 MG eCW1 ([facility]) Acetaminophen 500 MG Oral Tablet Acetaminophen 500 MG 2019 12:00:00 AM EST 2.0 {tablet_as_needed} active A cetaminophen 500 MG eCW1 ([facility]) Acetaminophen 500 MG Oral Tablet Acetaminophen 500 MG 2019 12:00:00 AM EST 2.0 {tablet_as_needed} active A cetaminophen 500 MG eCW1 ([facility]) Acetaminophen 500 MG Oral Tablet Acetaminophen 500 MG 2019 12:00:00 AM EST 2.0 {tablet_as_needed} active A cetaminophen 500 MG eCW1 ([facility]) Acetaminophen 500 MG Oral Tablet Acetaminophen 500 MG 2019 12:00:00 AM EST 2.0 {tablet_as_needed} active A cetaminophen 500 MG eCW1 ([facility]) Acetaminophen 500 MG Oral Tablet Acetaminophen 500 MG 2019 12:00:00 AM EST 2.0 {tablet_as_needed} active A cetaminophen 500 MG eCW1 ([facility]) Acetaminophen 500 MG Oral Tablet Acetaminophen 500 MG 2019 12:00:00 AM EST 2.0 {tablet_as_needed} active A cetaminophen 500 MG eCW1 ([facility]) Acetaminophen 500 MG Oral Tablet Acetaminophen 500 MG 2019 12:00:00 AM EST 2.0 {tablet_as_needed} active A cetaminophen 500 MG eCW1 ([facility]) Acetaminophen 500 MG Oral Tablet Acetaminophen 500 MG 2019 12:00:00 AM EST 2.0 {tablet_as_needed} active A cetaminophen 500 MG eCW1 ([facility]) Acetaminophen 500 MG Oral Tablet Acetaminophen 500 MG 2019 12:00:00 AM EST 2.0 {tablet_as_needed} active A cetaminophen 500 MG eCW1 ([facility]) Acetaminophen 500 MG Oral Tablet Acetaminophen 500 MG 2019 12:00:00 AM EST 2.0 {tablet_as_needed} active A cetaminophen 500 MG eCW1 ([facility]) Acetaminophen 500 MG Oral Tablet Acetaminophen 500 MG 2019 12:00:00 AM EST 2.0 {tablet_as_needed} active A cetaminophen 500 MG eCW1 ([facility]) Acetaminophen 500 MG Oral Tablet Acetaminophen 500 MG 2019 12:00:00 AM EST 2.0 {tablet_as_needed} active A cetaminophen 500 MG eCW1 ([facility]) Acetaminophen 500 MG Oral Tablet Acetaminophen 500 MG 2019 12:00:00 AM EST 2.0 {tablet_as_needed} active A cetaminophen 500 MG eCW1 ([facility]) Acetaminophen 500 MG Oral Tablet Acetaminophen 500 MG 2019 12:00:00 AM EST 2.0 {tablet_as_needed} active A cetaminophen 500 MG eCW1 ([facility]) Acetaminophen 500 MG Oral Tablet Acetaminophen 500 MG 2019 12:00:00 AM EST 2.0 {tablet_as_needed} active A cetaminophen 500 MG eCW1 ([facility]) Acetaminophen 500 MG Oral Tablet Acetaminophen 500 MG 2019 12:00:00 AM EST 2.0 {tablet_as_needed} active A cetaminophen 500 MG eCW1 ([facility]) Acetaminophen 500 MG Oral Tablet Acetaminophen 500 MG 2019 12:00:00 AM EST 2.0 {tablet_as_needed} active A cetaminophen 500 MG eCW1 ([facility]) Acetaminophen 500 MG Oral Tablet Acetaminophen 500 MG 2019 12:00:00 AM EST 2.0 {tablet_as_needed} active A cetaminophen 500 MG eCW1 ([facility]) Acetaminophen 500 MG Oral Tablet Acetaminophen 500 MG 2019 12:00:00 AM EST 2.0 {tablet_as_needed} active A cetaminophen 500 MG eCW1 ([facility]) Acetaminophen 500 MG Oral Tablet Acetaminophen 500 MG 2019 12:00:00 AM EST 2.0 {tablet_as_needed} active A cetaminophen 500 MG eCW1 ([facility]) gabapentin 100 MG Oral Capsule Gabapentin 100 MG Gabapentin 100 MG 10/31/2020 12:00:00 AM EST 1.0 {capsule} active G abapentin 100 MG eCW1 ([facility]) gabapentin 100 MG Oral Capsule Gabapentin 100 MG Gabapentin 100 MG 10/31/2020 12:00:00 AM EST 1.0 {capsule} active G abapentin 100 MG eCW1 ([facility]) gabapentin 100 MG Oral Capsule Gabapentin 100 MG Gabapentin 100 MG 10/31/2020 12:00:00 AM EST 1.0 {capsule} active G abapentin 100 MG eCW1 ([facility]) gabapentin 100 MG Oral Capsule Gabapentin 100 MG Gabapentin 100 MG 10/31/2020 12:00:00 AM EST 1.0 {capsule} active G abapentin 100 MG eCW1 ([facility]) gabapentin 100 MG Oral Capsule Gabapentin 100 MG Gabapentin 100 MG 10/31/2020 12:00:00 AM EST 1.0 {capsule} active G abapentin 100 MG eCW1 ([facility]) gabapentin 100 MG Oral Capsule Gabapentin 100 MG Gabapentin 100 MG 10/31/2020 12:00:00 AM EST 1.0 {capsule} active G abapentin 100 MG eCW1 ([facility]) gabapentin 100 MG Oral Capsule gabapentin (NEURONTIN) 100 MG capsule gabapentin (NEURONTIN) 100 MG capsule 10/31/2020 12:00:00 AM EST 100 mg Oral active Take 100 mg by mouth 2 (two) times a day [facility] Ergocalciferol [id number] UNT Oral Capsule vi tamin D, Ergocalciferol, 1.25 MG (86359 UT) CAPS vitamin D, Ergocalciferol, 1.25 MG (14872 UT) CAPS 12:00:00 AM EST active TAKE 1 CAPSULE PO ONCE A WEEK [facility] Levothyroxine Sodium 0.15 MG Oral Tablet levothyroxine (SYNTHROID, LEVOTHROID) 150 MCG tablet levothyroxine (SYNTHROID, LEVOTHROID) 150 MCG tablet 1 12/19/2019 12:00:00 AM EST active TK 1 T P O D FOR HYPOTHYROIDISM [facility] Levothyroxine Sodium 0.2 MG Oral Tablet levothyroxine (SYNTHROID, LEVOTHROID) 200 MCG tablet levothyroxine (SYNTHROID, LEVOTHROID) 200 MCG tablet 1 12:00:00 AM EDT aborted TK 1 T PO QD [facility] Cyclobenzaprine hydrochloride 10 MG Oral Tablet Cyclobenzapr ine HCL 09/06/2020 12:00:00 AM EDT ORAL active M EDENT ([facility]) Diclofenac Sodium 75 MG Delayed Release Oral Tablet diclofenac (VOLTAREN) 75 MG EC tablet diclofenac (VOLTAREN) 75 MG EC tablet 08/16/2020 12:00:00 AM EDT active TK 1 T PO BID FOR 10 DAYS [facility] meloxicam 7.5 MG Oral Tablet meloxicam (MOBIC) 7.5 MG tablet meloxicam (MOBIC) 7.5 MG tablet 06/04/2020 12:00:00 AM EDT aborted TK 1 T PO BID [facility] 7 ACTUAT umeclidinium 0.0625 MG/ACTUAT D ry Powder Inhaler [Incruse] INCRUSE ELLIPTA 62.5 MCG/INH AEPB INCRUSE ELLIPTA 62.5 MCG/INH AEPB 06/04/2020 12:00:00 AM EDT active INL 1 PUFF PO QD [facility] 24 HR mirabegron 50 MG Extended Release Oral Tablet [Myrbetriq] MYRBETRIQ 50 MG TB24 MYRBETRIQ 50 MG TB24 06/04/2020 12:00:00 AM EDT active TK 1 T PO D [facility] ropinirole 2 MG Oral Tablet rOPINIRole (REQUIP) 2 MG t ablet rOPINIRole (REQUIP) 2 MG tablet 05/28/2020 12:00:00 AM EDT active TK 1 T PO HS [facility] Rosuvastatin calcium 10 MG Oral Tablet rosuvastatin (C RESTOR) 10 MG tablet rosuvastatin (CRESTOR) 10 MG tablet 05/28/2020 12:00:00 AM EDT aborted TK 1 T PO QD [facility] Cyclobenzaprine hydrochloride 10 MG Oral Tablet cyclobenzaprine (FLEXERIL) 10 MG tablet cyclobenzaprine (FLEXERIL) 10 MG tablet 04/23/2020 12:00:00 AM EDT active TK 1 T PO TID [facility] Prednisone 10 MG Oral Tablet PredniSONE 10 MG PredniSONE 10 MG 04/05/2020 12:00:00 AM EDT suspended Predn iSONE 10 MG eCW1 ([facility]) Prednisone 10 MG Oral Tablet PredniSONE 10 MG PredniSONE 10 MG 04/05/2020 12:00:00 AM EDT suspended Predn iSONE 10 MG eCW1 ([facility]) Prednisone 10 MG Oral Tablet PredniSONE 10 MG PredniSONE 10 MG 04/05/2020 12:00:00 AM EDT active PredniSO NE 10 MG eCW1 ([facility]) Prednisone 10 MG Oral Tablet PredniSONE 10 MG PredniSONE 10 MG 04/05/2020 12:00:00 AM EDT suspended Predn iSONE 10 MG eCW1 ([facility]) Prednisone 10 MG Oral Tablet PredniSONE 10 MG PredniSONE 10 MG 04/05/2020 12:00:00 AM EDT suspended Predn iSONE 10 MG eCW1 ([facility]) Prednisone 10 MG Oral Tablet PredniSONE 10 MG PredniSONE 10 MG 04/05/2020 12:00:00 AM EDT active PredniSO NE 10 MG eCW1 ([facility]) Prednisone 10 MG Oral Tablet PredniSONE 10 MG PredniSONE 10 MG 04/05/2020 12:00:00 AM EDT suspended Predn iSONE 10 MG eCW1 ([facility]) Prednisone 10 MG Oral Tablet PredniSONE 10 MG PredniSONE 10 MG 04/05/2020 12:00:00 AM EDT suspended Predn iSONE 10 MG eCW1 ([facility]) Prednisone 10 MG Oral Tablet PredniSONE 10 MG PredniSONE 10 MG 04/05/2020 12:00:00 AM EDT suspended Predn iSONE 10 MG eCW1 ([facility]) Prednisone 10 MG Oral Tablet PredniSONE 10 MG PredniSONE 10 MG 04/05/2020 12:00:00 AM EDT suspended Predn iSONE 10 MG eCW1 ([facility]) Prednisone 10 MG Oral Tablet PredniSONE 10 MG PredniSONE 10 MG 04/05/2020 12:00:00 AM EDT suspended Predn iSONE 10 MG eCW1 ([facility]) Prednisone 10 MG Oral Tablet PredniSONE 10 MG PredniSONE 10 MG 04/05/2020 12:00:00 AM EDT suspended Predn iSONE 10 MG eCW1 ([facility]) Prednisone 10 MG Oral Tablet PredniSONE 10 MG PredniSONE 10 MG 04/05/2020 12:00:00 AM EDT suspended Predn iSONE 10 MG eCW1 ([facility]) Prednisone 10 MG Oral Tablet PredniSONE 10 MG PredniSONE 10 MG 04/05/2020 12:00:00 AM EDT active 2 tablets daily for 3 days, 1 tablet daily for 3 days, 1/2 tab daily for 3 days then stop prn flare eCW1 ([facility]) Prednisone 10 MG Oral Tablet PredniSONE 10 MG PredniSONE 10 MG 04/05/2020 12:00:00 AM EDT active PredniSO NE 10 MG eCW1 ([facility]) Prednisone 10 MG Oral Tablet PredniSONE 10 MG PredniSONE 10 MG 04/05/2020 12:00:00 AM EDT suspended Predn iSONE 10 MG eCW1 ([facility]) Prednisone 10 MG Oral Tablet PredniSONE 10 MG PredniSONE 10 MG 04/05/2020 12:00:00 AM EDT suspended Predn iSONE 10 MG eCW1 ([facility]) Prednisone 10 MG Oral Tablet PredniSONE 10 MG PredniSONE 10 MG 04/05/2020 12:00:00 AM EDT active PredniSO NE 10 MG eCW1 ([facility]) Prednisone 10 MG Oral Tablet PredniSONE 10 MG PredniSONE 10 MG 04/05/2020 12:00:00 AM EDT active PredniSO NE 10 MG eCW1 ([facility]) Prednisone 10 MG Oral Tablet PredniSONE 10 MG PredniSONE 10 MG 04/05/2020 12:00:00 AM EDT suspended Predn iSONE 10 MG eCW1 ([facility]) Prednisone 10 MG Oral Tablet PredniSONE 10 MG PredniSONE 10 MG 04/05/2020 12:00:00 AM EDT suspended Predn iSONE 10 MG eCW1 ([facility]) Prednisone 10 MG Oral Tablet PredniSONE 10 MG PredniSONE 10 MG 04/05/2020 12:00:00 AM EDT suspended Predn iSONE 10 MG eCW1 ([facility]) Prednisone 10 MG Oral Tablet PredniSONE 10 MG PredniSONE 10 MG 04/05/2020 12:00:00 AM EDT active PredniSO NE 10 MG eCW1 ([facility]) Prednisone 10 MG Oral Tablet PredniSONE 10 MG PredniSONE 10 MG 04/05/2020 12:00:00 AM EDT suspended Predn iSONE 10 MG eCW1 ([facility]) Prednisone 10 MG Oral Tablet PredniSONE 10 MG PredniSONE 10 MG 04/05/2020 12:00:00 AM EDT suspended Predn iSONE 10 MG eCW1 ([facility]) Prednisone 10 MG Oral Tablet PredniSONE 10 MG PredniSONE 10 MG 04/05/2020 12:00:00 AM EDT suspended Predn iSONE 10 MG eCW1 ([facility]) Prednisone 10 MG Oral Tablet PredniSONE 10 MG PredniSONE 10 MG 04/05/2020 12:00:00 AM EDT active PredniSO NE 10 MG eCW1 ([facility]) Levothyroxine Sodium 0.125 MG Oral Table t levothyroxine (SYNTHROID, LEVOTHROID) 125 MCG tablet levothyroxine (SYNTHROID, LEVOTHROID) 125 MCG tablet 0 01/28/2020 12:00:00 AM EST aborted Hypothyroidism, unspecified type TAKE 1 TABLET(125 MCG) BY MOUTH DAILY [facility] Hypothyroidism, unspecified type Sulfasalazine 500 MG Oral Tablet sulfaSALAzine (AZULFI DINE) 500 MG tablet sulfaSALAzine (AZULFIDINE) 500 MG tablet 11/21/2019 12:00:00 AM EST active TK 1 T PO BID [facility] Levothyroxine Sodium 0.2 MG Oral Tablet levothyroxine 200 mcg tablet TK 1 T PO QD levothyroxine 200 mcg tablet TK 1 T PO QD completed levothyroxine sodium 0.2 MG Oral Tablet [facility] ([facility]) Acetaminophen 325 MG / Hydrocodone [place] trate 5 MG Oral Tablet hydrocodone 5 mg- acetaminophen 325 mg tablet hydrocodone 5 mg-acetaminophen 325 mg tablet completed acetaminophen 325 MG / hydrocodone bitartrate 5 MG Oral Tablet [facility] ([facility]) Cyclobenzaprine hydrochloride 10 MG Oral Tablet cyclobenzaprine 10 mg tablet TK 1 T PO TID PRN cyclobenzaprine 10 mg tablet TK 1 T PO TID PRN completed cyclobenzaprine hydrochloride 10 MG Oral Tablet [facility] ([facility]) Sulfasalazine 500 MG Oral Tablet sulfasalazine 500 mg tablet TK 2 TS PO BID sulfasalazine 500 mg tablet TK 2 TS PO BID completed sulfasalazine 500 MG Oral Tablet [facility] ([facility]) Sulfamethoxazole 800 MG / Trimethoprim 1 60 MG Oral Tablet sulfamethoxazole 800 mg-trimethoprim 160 mg tablet TK 1 T PO Q 12 H sulfamethoxazole 800 mg- trimethoprim 160 mg tablet TK 1 T PO Q 12 H completed sulfamethoxazole 800 MG / trimethoprim 160 MG Oral Tablet [facility] ([facility]) 24 HR Divalproex Sodium 500 MG Extended Release Oral Tablet divalproex ER 500 mg tablet,extended release 24 hr TK 1 T PO QD divalproex ER 500 mg tablet,extended release 24 hr TK 1 T PO QD completed 24 HR divalproex sodium 500 MG Extended Release Oral Tablet [facility] ([facility]) Amoxicillin 875 MG / Clavulanate 125 MG Oral Tablet amoxicillin 875 mg-potassium clavulanate 125 mg tablet TK 1 T PO BID amoxicillin 875 mg-potassium clavulanate 125 mg tablet TK 1 T PO BID completed amoxicillin 875 MG / clavulanate 125 MG Oral Tablet [facility] ([facility]) Levothyroxine Sodium 0.2 MG Oral Tablet levothyroxine 200 mcg tablet TK 1 T PO QD levothyroxine 200 mcg tablet TK 1 T PO QD completed levothyroxine sodium 0.2 MG Oral Tablet [facility] ([facility]) 24 HR Divalproex Sodium 500 MG Extended Release Oral Tablet divalproex (DEPAKOTE) 500 MG 24 hr tablet divalproex (DEPAKOTE) 500 MG 24 hr tablet 500 mg Oral aborted Take 500 mg by mouth [place] [facility] gabapentin 100 MG Oral Capsule gabapenti n 100 mg capsule TAKE 1 CAPSULE BY MOUTH THREE TIMES DAILY gabapentin 100 mg capsule TAKE 1 CAPSULE BY MOUTH THREE TIMES DAILY completed gabapentin 100 MG Oral Capsule [place] ([facility]) 24 HR Divalproex Sodium 500 MG Extended Release Oral Tablet divalproex ER 500 mg tablet,extended release 24 hr TK 1 T PO QD divalproex ER 500 mg tablet,extended release 24 hr TK 1 T PO QD completed 24 HR divalproex sodium 500 MG Extended Release Oral Tablet [place] ([facility]) prednisolone acetate 10 MG/ML Ophthalmic Suspension prednisolone acetate 1 % eye drops,suspension SW AND INSTILL 1 DROP INTO THE RIGHT EYE QID DIRECTED prednisolone acetate 1 % eye drops,suspension SW AND INSTILL 1 DROP INTO THE RIGHT EYE QID DIRECTED completed prednisolone acetate 10 MG/ML Ophthalmic Suspension [place] ([facility]) fluticasone furoate 0.1 MG/ACTUAT / ling nterol 0.025 MG/ACTUAT Dry Powder Inhaler Breo Ellipta 100 mcg-25 mcg/dose powder for inhalation INHALE 1 PUFF PO EVERY DAY Breo Ellipta 100 mcg-25 mcg/dose powder for inhalation INHALE 1 PUFF PO EVERY DAY completed f luticasone furoate 0.1 MG/ACTUAT / vilanterol 0.025 MG/ACTUAT Dry Powder Inhaler [place] ([facility]) Amoxicillin 875 MG / Clavulanate 125 MG Oral Tablet amoxicillin 875 mg-potassium clavulanate 125 mg tablet TK 1 T PO BID amoxicillin 875 mg-potassium clavulanate 125 mg tablet TK 1 T PO BID completed amoxicillin 875 MG / clavulanate 125 MG Oral Tablet [place] ([facility]) Prednisone 10 MG Oral Tablet prednisone [...] DAY completed prednisone 10 MG Oral Tablet [place] ([facility]) Acetaminophen 300 MG / Codeine [...] codeine phosphate 30 MG Oral Tablet [place] ([facility]) 24 HR Divalproex Sodium 500 MG Extended Release Oral Tablet divalproex ER 500 mg tablet,extended release 24 hr TK 1 T PO QD divalproex ER 500 mg tablet,extended release 24 hr TK 1 T PO QD completed 24 HR divalproex sodium 500 MG Extended Release Oral Tablet [place] ([facility]) Cephalexin 500 MG Oral Capsule cephalexin 500 mg capsu le TK 1 C PO QID cephalexin 500 mg capsule TK 1 C PO QID completed cephalexin 500 MG Oral Capsule [place] ([facility]) Acetaminophen 300 MG / Codeine Phosphate [...] codeine phosphate 30 MG Oral Tablet [place] ([facility]) ropinirole 2 MG Oral Tablet ropinirole 2 mg tablet TK 1 T PO HS ropinirole 2 mg tablet TK 1 T PO HS completed ro pinirole 2 MG Oral Tablet [place] ([facility]) pregabalin 75 MG Oral Capsule pregabalin 75 mg capsule TAKE 1 CAPSULE BY MOUTH TWICE DAILY. MAXIMUM DAILY DOSE IS 2 CAPSULES pregabalin 75 mg capsule TAKE 1 CAPSULE BY MOUTH TWICE DAILY. MAXIMUM DAILY DOSE IS 2 CAPSULES completed pregabalin 75 MG Oral Capsule AT [facility] ([facility]) Diclofenac Sodium 0.01 MG/MG Topical Gel diclofenac 1 % topical gel DENG 2 GRAMS EXT AA QID FOR 10 DAYS PRF PAIN diclofenac 1 % topical gel DENG 2 GRAMS E XT AA QID FOR 10 DAYS PRF PAIN completed diclofenac sodium 0.01 MG/MG Topical Gel [place] ([facility]) Diclofenac Sodium 75 MG Delayed Release Oral Tablet diclofenac sodium 75 mg tablet,delayed release TK 1 T PO BID FOR 10 DAYS diclofenac sodium 75 mg tablet,delayed release TK 1 T PO BID FOR 10 DAYS completed diclofenac sodium 75 MG Delayed Release Oral Tablet [place] ([facility]) 24 HR Divalproex Sodium 500 MG Extended Release Oral Tablet divalproex ER 500 mg tablet,extended release 24 hr TK 1 T PO QD divalproex ER 500 mg tablet,extended release 24 hr TK 1 T PO QD completed 24 HR divalproex sodium 500 MG Extended Release Oral Tablet [place] ([facility]) Ergocalciferol [id number] UNT Oral Capsule er gocalciferol (vitamin D2) 1,250 mcg (50,000 unit) capsule TAKE 1 CAPSULE PO ONCE A WEEK ergocalciferol (vitamin D2) 1,250 mcg (50,000 unit) capsule TAKE 1 CAPSULE PO ONCE A WEEK completed ergocalciferol 1.25 MG Oral Caps ule [place] ([facility]) Acetaminophen 300 MG / Codeine [...] codeine phosphate 30 MG Oral Tablet [place] ([facility]) Hydrocortisone 10 MG/ML / Neomycin 3.5 M G/ML / Polymyxin B [id number] UNT/ML Otic Suspension jaktehyg-bkpetjhaw-ofdykamxe 3.5 mg-10,000 unit/mL-1 % ear drops,susp INSTILL 3 DROPS INTO THE RIGHT EAR BID [id number]-ithizxvbs-eadffiypc 3.5 mg- 10,000 unit/mL-1 % ear drops,susp INSTILL 3 DROPS INTO THE RIGHT EAR BID completed hydrocortisone 10 MG/ML / neomycin 3.5 MG/ML / polymyxin B 43311 UNT/ML Otic Suspension [place] ([facility]) duloxetine 60 MG Delayed Release Oral Ca psule duloxetine 60 mg capsule,delayed release TK 1 C PO QD duloxetine 60 mg capsule,delayed release TK 1 C PO QD completed duloxetine 60 MG Delay ed Release Oral Capsule [place] ([facility]) Naproxen 500 MG Oral Tablet naproxen 500 mg tablet TK 1 T PO Q 12 H FOR 10 DAYS naproxen 500 mg tablet TK 1 T PO Q 12 H FOR 10 DAYS completed naproxen 500 MG Oral Tablet [place] ([facility]) fluticasone furoate 0.1 MG/ACTUAT / ling nterol 0.025 MG/ACTUAT Dry Powder Inhaler Breo Ellipta 100 mcg-25 mcg/dose powder for inhalation INHALE 1 PUFF PO EVERY DAY Breo Ellipta 100 mcg-25 mcg/dose powder for inhalation INHALE 1 PUFF PO EVERY DAY completed f luticasone furoate 0.1 MG/ACTUAT / vilanterol 0.025 MG/ACTUAT Dry Powder Inhaler [place] ([facility]) prednisolone acetate 10 MG/ML Ophthalmic Suspension prednisolone acetate 1 % eye drops,suspension SW AND INSTILL 1 DROP INTO THE RIGHT EYE QID DIRECTED prednisolone acetate 1 % eye drops,suspension SW AND INSTILL 1 DROP INTO THE RIGHT EYE QID DIRECTED completed prednisolone acetate 10 MG/ML Ophthalmic Suspension [place] ([facility]) duloxetine 60 MG Delayed Release Oral Ca psule duloxetine 60 mg capsule,delayed release TK 1 C PO QD duloxetine 60 mg capsule,delayed release TK 1 C PO QD completed duloxetine 60 MG Delay ed Release Oral Capsule [place] ([facility]) Levothyroxine Sodium 0.125 MG Oral Tablet levothyroxin e 125 mcg tablet levothyroxine 125 mcg tablet completed levothyroxine sodium 0.125 MG Oral Tablet [place] ([facility]) Levothyroxine Sodium 0.2 MG Oral Tablet levothyroxine 200 mcg tablet TK 1 T PO QD levothyroxine 200 mcg tablet TK 1 T PO QD completed levothyroxine sodium 0.2 MG Oral Tablet [place] ([facility]) Acetaminophen 300 MG / Codeine [...] codeine phosphate 30 MG Oral Tablet [place] ([facility]) gabapentin 100 MG Oral Capsule gabapenti n 100 mg capsule TAKE 1 CAPSULE BY MOUTH THREE TIMES DAILY gabapentin 100 mg capsule TAKE 1 CAPSULE BY MOUTH THREE TIMES DAILY completed gabapentin 100 MG Oral Capsule [place] ([facility]) Meclizine Hydrochloride 12.5 MG Oral Tab let meclizine 12.5 mg tablet TK 1 T PO TID meclizine 12.5 mg tablet TK 1 T PO TID completed meclizine hydrochloride 12.5 MG Oral Tablet [place] ([facility]) duloxetine 60 MG Delayed Release Oral Ca psule duloxetine 60 mg capsule,delayed release TK 1 C PO QD duloxetine 60 mg capsule,delayed release TK 1 C PO QD completed duloxetine 60 MG Delay ed Release Oral Capsule [place] ([facility]) Levothyroxine Sodium 0.112 MG Oral Table t levothyroxine 112 mcg tablet TK 1 T PO QD levothyroxine 112 mcg tablet TK 1 T PO QD completed levothyroxine sodium 0.112 MG Oral Tablet [place] ([facility]) Hydroxyzine Hydrochloride 10 MG Oral Tab let hydroxyzine HCl 10 mg tablet TK 1 OR 2 TS PO Q 6 H NEEDED FOR PANIC hydroxyzine HCl 10 mg tablet TK 1 OR 2 T S PO Q 6 H NEEDED FOR PANIC completed hydroxyzine hydrochloride 10 MG Oral Tablet [place] ([facility]) Prednisone 10 MG Oral Tablet prednisone 10 mg tablet T K 1 T PO BID prednisone 10 mg tablet TK 1 T PO BID completed prednisone 10 MG Oral Tablet [place] ([facility]) Sulfasalazine 500 MG Oral Tablet sulfasalazine 500 mg tablet TK 2 TS PO BID sulfasalazine 500 mg tablet TK 2 TS PO BID completed sulfasalazine 500 MG Oral Tablet [place] ([facility]) Sulfamethoxazole 800 MG / Trimethoprim 1 60 MG Oral Tablet sulfamethoxazole 800 mg-trimethoprim 160 mg tablet TK 1 T PO Q 12 H sulfamethoxazole 800 mg- trimethoprim 160 mg tablet TK 1 T PO Q 12 H completed sulfamethoxazole 800 MG / trimethoprim 160 MG Oral Tablet [place] ([facility]) Diclofenac Sodium 0.01 MG/MG Topical Gel diclofenac 1 % topical gel DENG 2 GRAMS EXT AA QID FOR 10 DAYS PRF PAIN diclofenac 1 % topical gel DENG 2 GRAMS E XT AA QID FOR 10 DAYS PRF PAIN completed diclofenac sodium 0.01 MG/MG Topical Gel [place] ([facility]) Hydroxyzine Hydrochloride 10 MG Oral Tab let hydroxyzine HCl 10 mg tablet TK 1 OR 2 TS PO Q 6 H NEEDED FOR PANIC hydroxyzine HCl 10 mg tablet TK 1 OR 2 T S PO Q 6 H NEEDED FOR PANIC completed hydroxyzine hydrochloride 10 MG Oral Tablet [place] ([facility]) Cephalexin 500 MG Oral Capsule cephalexin 500 mg capsu le TK 1 C PO QID cephalexin 500 mg capsule TK 1 C PO QID completed cephalexin 500 MG Oral Capsule [place] ([facility]) Hydroxyzine Hydrochloride 10 MG Oral Tab let hydroxyzine HCl 10 mg tablet TK 1 OR 2 TS PO Q 6 H NEEDED FOR PANIC hydroxyzine HCl 10 mg tablet TK 1 OR 2 T S PO Q 6 H NEEDED FOR PANIC completed hydroxyzine hydrochloride 10 MG Oral Tablet [place] ([facility]) Levothyroxine Sodium 0.112 MG Oral Table t levothyroxine 112 mcg tablet TK 1 T PO QD levothyroxine 112 mcg tablet TK 1 T PO QD completed levothyroxine sodium 0.112 MG Oral Tablet [place] ([facility]) Diclofenac Sodium 0.01 MG/MG Topical Gel diclofenac 1 % topical gel DENG 2 GRAMS EXT AA QID FOR 10 DAYS PRF PAIN diclofenac 1 % topical gel DENG 2 GRAMS E XT AA QID FOR 10 DAYS PRF PAIN completed diclofenac sodium 0.01 MG/MG Topical Gel [place] ([facility]) pregabalin 75 MG Oral Capsule pregabalin 75 mg capsule TAKE 1 CAPSULE BY MOUTH TWICE DAILY. MAXIMUM DAILY DOSE IS 2 CAPSULES pregabalin 75 mg capsule TAKE 1 CAPSULE BY MOUTH TWICE DAILY. MAXIMUM DAILY DOSE IS 2 CAPSULES completed pregabalin 75 MG Oral Capsule AT [place] ([facility]) Levofloxacin 500 MG Oral Tablet levoflox acin 500 mg tablet TK 1 T PO QD FOR 5 DAYS levofloxacin 500 mg tablet TK 1 T PO QD FOR 5 DAYS completed levofloxacin 500 MG Oral Tablet [place] ([facility]) Erythromycin 0.005 MG/MG Ophthalmic Oint ment erythromycin 5 mg/gram (0.5 %) eye ointment APPLY TO EAR LOBE BID erythromycin 5 mg/gram (0.5 %) eye ointm ent APPLY TO EAR LOBE BID completed erythromycin 0.005 MG/MG Ophthalmic Ointment [place] ([facility]) Levothyroxine Sodium 0.125 MG Oral Tablet levothyroxin e 125 mcg tablet levothyroxine 125 mcg tablet completed levothyroxine sodium 0.125 MG Oral Tablet [place] ([facility]) Levothyroxine Sodium 0.125 MG Oral Tablet levothyroxin e 125 mcg tablet levothyroxine 125 mcg tablet completed levothyroxine sodium 0.125 MG Oral Tablet [place] ([facility]) Sulfasalazine 500 MG Oral Tablet sulfasalazine 500 mg tablet TK 2 TS PO BID sulfasalazine 500 mg tablet TK 2 TS PO BID completed sulfasalazine 500 MG Oral Tablet [place] ([facility]) Amoxicillin 875 MG / Clavulanate 125 MG Oral Tablet amoxicillin 875 mg-potassium clavulanate 125 mg tablet TK 1 T PO BID amoxicillin 875 mg-potassium clavulanate 125 mg tablet TK 1 T PO BID completed amoxicillin 875 MG / clavulanate 125 MG Oral Tablet [place] ([facility]) Amoxicillin 875 MG / Clavulanate 125 MG Oral Tablet amoxicillin 875 mg-potassium clavulanate 125 mg tablet TK 1 T PO BID amoxicillin 875 mg-potassium clavulanate 125 mg tablet TK 1 T PO BID completed amoxicillin 875 MG / clavulanate 125 MG Oral Tablet [place] ([facility]) Naproxen 500 MG Oral Tablet naproxen 500 mg tablet TK 1 T PO Q 12 H FOR 10 DAYS naproxen 500 mg tablet TK 1 T PO Q 12 H FOR 10 DAYS completed naproxen 500 MG Oral Tablet [place] ([facility]) Prednisone 10 MG Oral Tablet prednisone 10 [...] DAY completed prednisone 10 MG Oral Tablet [place] ([facility]) Levofloxacin 500 MG Oral Tablet levoflox acin 500 mg tablet TK 1 T PO QD FOR 5 DAYS levofloxacin 500 mg tablet TK 1 T PO QD FOR 5 DAYS completed levofloxacin 500 MG Oral Tablet [place] ([facility]) [employer] (doxylamine) 25 mg tablet Take by oral route. [id number] completed doxylamine succinate 25 MG Oral Tablet [[employer] (doxylamine)] [place] ([facility]) Levothyroxine Sodium 0.112 MG Oral Table t levothyroxine 112 mcg tablet TK 1 T PO QD levothyroxine 112 mcg tablet TK 1 T PO QD completed levothyroxine sodium 0.112 MG Oral Tablet [place] ([facility]) prednisolone acetate 10 MG/ML Ophthalmic Suspension prednisolone acetate 1 % eye drops,suspension SW AND INSTILL 1 DROP INTO THE RIGHT EYE QID DIRECTED prednisolone acetate 1 % eye drops,suspension SW AND INSTILL 1 DROP INTO THE RIGHT EYE QID DIRECTED completed prednisolone acetate 10 MG/ML Ophthalmic Suspension [place] ([facility]) Aleve completed Aleve [place] ( [facility]) fluticasone furoate 0.1 MG/ACTUAT / ling nterol 0.025 MG/ACTUAT Dry Powder Inhaler Breo Ellipta 100 mcg-25 mcg/dose powder for inhalation INHALE 1 PUFF PO EVERY DAY Breo Ellipta 100 mcg-25 mcg/dose powder for inhalation INHALE 1 PUFF PO EVERY DAY completed f luticasone furoate 0.1 MG/ACTUAT / vilanterol 0.025 MG/ACTUAT Dry Powder Inhaler [place] ([facility]) 12 HR Guaifenesin 600 MG Extended Releas e Oral Tablet [Mucinex] Mucinex 600 mg tablet, extended release TK 1 T PO BID Mucinex 600 mg tablet, extended release TK 1 T PO BID completed 12 HR guaifenesin 600 MG Extended Release Oral Tablet [Mucinex] [place] ([facility]) Ergocalciferol [id number] UNT Oral Capsule er gocalciferol (vitamin D2) 1,250 mcg (50,000 unit) capsule TAKE 1 CAPSULE PO ONCE A WEEK ergocalciferol (vitamin D2) 1,250 mcg (50,000 unit) capsule TAKE 1 CAPSULE PO ONCE A WEEK completed ergocalciferol 1.25 MG Oral Caps ule [place] ([facility]) Naproxen 500 MG Oral Tablet naproxen 500 mg tablet TK 1 T PO Q 12 H FOR 10 DAYS naproxen 500 mg tablet TK 1 T PO Q 12 H FOR 10 DAYS completed naproxen 500 MG Oral Tablet [place] ([facility]) Naproxen 500 MG Oral Tablet naproxen 500 mg tablet TK 1 T PO Q 12 H FOR 10 DAYS naproxen 500 mg tablet TK 1 T PO Q 12 H FOR 10 DAYS completed naproxen 500 MG Oral Tablet [place] ([facility]) Levofloxacin 500 MG Oral Tablet levoflox acin 500 mg tablet TK 1 T PO QD FOR 5 DAYS levofloxacin 500 mg tablet TK 1 T PO QD FOR 5 DAYS completed levofloxacin 500 MG Oral Tablet [place] ([facility]) Diclofenac Sodium 0.01 MG/MG Topical Gel diclofenac 1 % topical gel DENG 2 GRAMS EXT AA QID FOR 10 DAYS PRF PAIN diclofenac 1 % topical gel DENG 2 GRAMS E XT AA QID FOR 10 DAYS PRF PAIN completed diclofenac sodium 0.01 MG/MG Topical Gel [place] ([facility]) Aleve completed Aleve [place] ( [facility]) Meclizine Hydrochloride 12.5 MG Oral Tab let meclizine 12.5 mg tablet TK 1 T PO TID meclizine 12.5 mg tablet TK 1 T PO TID completed meclizine hydrochloride 12.5 MG Oral Tablet [place] ([facility]) ropinirole 2 MG Oral Tablet ropinirole 2 mg tablet TK 1 T PO HS ropinirole 2 mg tablet TK 1 T PO HS completed ro pinirole 2 MG Oral Tablet [place] ([facility]) Hydroxyzine Hydrochloride 10 MG Oral Tab let hydroxyzine HCl 10 mg tablet TK 1 OR 2 TS PO Q 6 H NEEDED FOR PANIC hydroxyzine HCl 10 mg tablet TK 1 OR 2 T S PO Q 6 H NEEDED FOR PANIC completed hydroxyzine hydrochloride 10 MG Oral Tablet [place] ([facility]) Erythromycin 0.005 MG/MG Ophthalmic Oint ment erythromycin 5 mg/gram (0.5 %) eye ointment APPLY TO EAR LOBE BID erythromycin 5 mg/gram (0.5 %) eye ointm ent APPLY TO EAR LOBE BID completed erythromycin 0.005 MG/MG Ophthalmic Ointment [place] ([facility]) Levothyroxine Sodium 0.125 MG Oral Tablet levothyroxin e 125 mcg tablet levothyroxine 125 mcg tablet completed levothyroxine sodium 0.125 MG Oral Tablet [place] ([facility]) Cephalexin 500 MG Oral Capsule cephalexin 500 mg capsu le TK 1 C PO QID cephalexin 500 mg capsule TK 1 C PO QID completed cephalexin 500 MG Oral Capsule [place] ([facility]) Erythromycin 0.005 MG/MG Ophthalmic Oint ment erythromycin 5 mg/gram (0.5 %) eye ointment APPLY TO EAR LOBE BID erythromycin 5 mg/gram (0.5 %) eye ointm ent APPLY TO EAR LOBE BID completed erythromycin 0.005 MG/MG Ophthalmic Ointment [place] ([facility]) Diclofenac Sodium 75 MG Delayed Release Oral Tablet diclofenac sodium 75 mg tablet,delayed release TK 1 T PO BID FOR 10 DAYS diclofenac sodium 75 mg tablet,delayed release TK 1 T PO BID FOR 10 DAYS completed diclofenac sodium 75 MG Delayed Release Oral Tablet [place] ([facility]) Trazodone Hydrochloride 100 MG Oral Tablet trazodone 1 00 mg tablet TK 1 T PO HS trazodone 100 mg tablet TK 1 T PO HS c ompleted trazodone hydrochloride 100 MG Oral Tablet [place] ([facility]) ropinirole 1 MG Oral Tablet ropinirole 1 mg tablet 1 tablet po once nightly before bed ropinirole 1 mg tablet 1 tablet po once nightly before bed completed ropinirole 1 MG Oral Tablet [place] ([facility]) Sulfasalazine 500 MG Oral Tablet sulfasalazine 500 mg tablet TK 2 TS PO BID sulfasalazine 500 mg tablet TK 2 TS PO BID completed sulfasalazine 500 MG Oral Tablet [place] ([facility]) 14 ACTUAT fluticasone furoate 0.1 MG/ACT UAT / vilanterol 0.025 MG/ACTUAT Dry Powder Inhaler Fluticasone Furoate-Vilanterol (BREO ELLIPTA) 100-25 MCG/INH INHALER Fluticasone Furoate-Vilanterol (BREO ELLIPTA) 100-25 MCG/INH INHALER 1 {inhaler} Oral aborted Take 1 Inhal er by mouth daily [facility] Levothyroxine Sodium 0.112 MG Oral Table t levothyroxine 112 mcg tablet TK 1 T PO QD levothyroxine 112 mcg tablet TK 1 T PO QD completed levothyroxine sodium 0.112 MG Oral Tablet [place] ([facility]) Aleve completed Aleve [place] ( [facility]) Trazodone Hydrochloride 100 MG Oral Tablet trazodone 1 00 mg tablet TK 1 T PO HS trazodone 100 mg tablet TK 1 T PO HS c ompleted trazodone hydrochloride 100 MG Oral Tablet [place] ([facility]) Acetaminophen 325 MG / Hydrocodone [place] trate 5 MG Oral Tablet hydrocodone 5 mg- acetaminophen 325 mg tablet hydrocodone 5 mg-acetaminophen 325 mg tablet completed acetaminophen 325 MG / hydrocodone bitartrate 5 MG Oral Tablet [place] ([facility]) Levofloxacin 500 MG Oral Tablet levoflox acin 500 mg tablet TK 1 T PO QD FOR 5 DAYS levofloxacin 500 mg tablet TK 1 T PO QD FOR 5 DAYS completed levofloxacin 500 MG Oral Tablet [place] ([facility]) Trazodone Hydrochloride 100 MG Oral Tablet trazodone 1 00 mg tablet TK 1 T PO HS trazodone 100 mg tablet TK 1 T PO HS c ompleted trazodone hydrochloride 100 MG Oral Tablet [place] ([facility]) Cyclobenzaprine hydrochloride 10 MG Oral Tablet cyclobenzaprine 10 mg tablet TK 1 T PO TID PRN cyclobenzaprine 10 mg tablet TK 1 T PO TID PRN completed cyclobenzaprine hydrochloride 10 MG Oral Tablet [place] ([facility]) Hydrocortisone 10 MG/ML / Neomycin 3.5 M G/ML / Polymyxin B 58132 UNT/ML Otic Suspension rjthafhj-rrjryepqn-jwrrnbrow 3.5 mg-10,000 unit/mL-1 % ear drops,susp INSTILL 3 DROPS INTO THE RIGHT EAR BID oygqizba-cboqhetdw-qoyrbmzzb 3.5 mg- 10,000 unit/mL-1 % ear drops,susp INSTILL 3 DROPS INTO THE RIGHT EAR BID completed hydrocortisone 10 MG/ML / neomycin 3.5 MG/ML / polymyxin B 92293 UNT/ML Otic Suspension [place] ([facility]) Hydrocortisone 10 MG/ML / Neomycin 3.5 M G/ML / Polymyxin B 75278 UNT/ML Otic Suspension zzfqgkta-dvzvyczku-hgehyyqsa 3.5 mg-10,000 unit/mL-1 % ear drops,susp INSTILL 3 DROPS INTO THE RIGHT EAR BID tujpkpao-luqheprnn-vbgzlfovy 3.5 mg- 10,000 unit/mL-1 % ear drops,susp INSTILL 3 DROPS INTO THE RIGHT EAR BID completed hydrocortisone 10 MG/ML / neomycin 3.5 MG/ML / polymyxin B 17168 UNT/ML Otic Suspension [place] ([facility]) pregabalin 75 MG Oral Capsule pregabalin 75 mg capsule TAKE 1 CAPSULE BY MOUTH TWICE DAILY. MAXIMUM DAILY DOSE IS 2 CAPSULES pregabalin 75 mg capsule TAKE 1 CAPSULE BY MOUTH TWICE DAILY. MAXIMUM DAILY DOSE IS 2 CAPSULES completed pregabalin 75 MG Oral Capsule AT [facility]) Clindamycin 300 MG Oral Capsule clindamy moisés HCl 300 mg capsule TAKE 1 CAPSULE BY MOUTH THREE TIMES DAILY FOR ACUTE OPIOID THERAPY DAYS clindamycin HCl 300 mg capsule TAKE 1 CAPSULE BY MOUTH THREE TIMES DAILY FOR ACUTE OPIOID THERAPY DAYS completed clindamycin 30 0 MG Oral Capsule [place] ([facility]) Cyclobenzaprine hydrochloride 10 MG Oral Tablet cyclobenzaprine 10 mg tablet TK 1 T PO TID PRN cyclobenzaprine 10 mg tablet TK 1 T PO TID PRN completed cyclobenzaprine hydrochloride 10 MG Oral Tablet [place] ([facility]) Cephalexin 500 MG Oral Capsule cephalexin 500 mg capsu le TK 1 C PO QID cephalexin 500 mg capsule TK 1 C PO QID completed cephalexin 500 MG Oral Capsule [place] ([facility]) Levothyroxine Sodium 0.2 MG Oral Tablet levothyroxine 200 mcg tablet TK 1 T PO QD levothyroxine 200 mcg tablet TK 1 T PO QD completed levothyroxine sodium 0.2 MG Oral Tablet [place] ([facility]) duloxetine 60 MG Delayed Release Oral Ca psule DULoxetine (CYMBALTA) 60 MG capsule DULoxetine (CYMBALTA) 60 MG capsule 60 mg Oral aborted Take 60 mg by mouth daily [facility] pantoprazole 20 MG Delayed Release Oral Tablet pantoprazole (PROTONIX) 20 MG tablet pantoprazole (PROTONIX) 20 MG tablet 20 mg Oral aborted Take 20 mg by mouth daily [facility] Meclizine Hydrochloride 12.5 MG Oral Tab let meclizine 12.5 mg tablet TK 1 T PO TID meclizine 12.5 mg tablet TK 1 T PO TID completed meclizine hydrochloride 12.5 MG Oral Tablet [place] ([facility]) prednisolone acetate 10 MG/ML Ophthalmic Suspension prednisolone acetate 1 % eye drops,suspension SW AND INSTILL 1 DROP INTO THE RIGHT EYE QID DIRECTED prednisolone acetate 1 % eye drops,suspension SW AND INSTILL 1 DROP INTO THE RIGHT EYE QID DIRECTED completed prednisolone acetate 10 MG/ML Ophthalmic Suspension [place] ([facility]) Sulfamethoxazole 800 MG / Trimethoprim 1 60 MG Oral Tablet sulfamethoxazole 800 mg-trimethoprim 160 mg tablet TK 1 T PO Q 12 H sulfamethoxazole 800 mg- trimethoprim 160 mg tablet TK 1 T PO Q 12 H completed sulfamethoxazole 800 MG / trimethoprim 160 MG Oral Tablet [place] ([facility]) Meclizine Hydrochloride 12.5 MG Oral Tab let meclizine 12.5 mg tablet TK 1 T PO TID meclizine 12.5 mg tablet TK 1 T PO TID completed meclizine hydrochloride 12.5 MG Oral Tablet [place] ([facility]) Clindamycin 300 MG Oral Capsule clindamy moisés HCl 300 mg capsule TAKE 1 CAPSULE BY MOUTH THREE TIMES DAILY FOR ACUTE OPIOID THERAPY DAYS clindamycin HCl 300 mg capsule TAKE 1 CAPSULE BY MOUTH THREE TIMES DAILY FOR ACUTE OPIOID THERAPY DAYS completed clindamycin 30 0 MG Oral Capsule [place] ([facility]) Cyclobenzaprine hydrochloride 10 MG Oral Tablet cyclobenzaprine 10 mg tablet TK 1 T PO TID PRN cyclobenzaprine 10 mg tablet TK 1 T PO TID PRN completed cyclobenzaprine hydrochloride 10 MG Oral Tablet [place] ([facility]) Diclofenac Sodium 75 MG Delayed Release Oral Tablet diclofenac sodium 75 mg tablet,delayed release TK 1 T PO BID FOR 10 DAYS diclofenac sodium 75 mg tablet,delayed release TK 1 T PO BID FOR 10 DAYS completed diclofenac sodium 75 MG Delayed Release Oral Tablet [place] ([facility]) ropinirole 2 MG Oral Tablet ropinirole 2 mg tablet TK 1 T PO HS ropinirole 2 mg tablet TK 1 T PO HS completed ro pinirole 2 MG Oral Tablet [place] ([facility]) 30 ACTUAT fluticasone furoate 0.2 MG/ACT UAT / vilanterol 0.025 MG/ACTUAT Dry Powder Inhaler Fluticasone Furoate-Vilanterol (BREO ELLIPTA) 200-25 MCG/INH AEPB Fluticasone Furoate-Vilanterol (BREO ELLIPTA) 200-25 MCG/INH AEPB 1 {puff} Inhalation aborted Inhale 1 puff daily [facility] Clindamycin 300 MG Oral Capsule clindamy moisés HCl 300 mg capsule TAKE 1 CAPSULE BY MOUTH THREE TIMES DAILY FOR ACUTE OPIOID THERAPY DAYS clindamycin HCl 300 mg capsule TAKE 1 CAPSULE BY MOUTH THREE TIMES DAILY FOR ACUTE OPIOID THERAPY DAYS completed clindamycin 30 0 MG Oral Capsule [place] ([facility]) Sulfamethoxazole 800 MG / Trimethoprim 1 60 MG Oral Tablet sulfamethoxazole 800 mg-trimethoprim 160 mg tablet TK 1 T PO Q 12 H sulfamethoxazole 800 mg- trimethoprim 160 mg tablet TK 1 T PO Q 12 H completed sulfamethoxazole 800 MG / trimethoprim 160 MG Oral Tablet [place] ([facility]) Trazodone Hydrochloride 100 MG Oral Tablet trazodone 1 00 mg tablet TK 1 T PO HS trazodone 100 mg tablet TK 1 T PO HS c ompleted trazodone hydrochloride 100 MG Oral Tablet [place] ([facility]) Acetaminophen 325 MG / Hydrocodone [place] trate 5 MG Oral Tablet hydrocodone 5 mg- acetaminophen 325 mg tablet hydrocodone 5 mg-acetaminophen 325 mg tablet completed acetaminophen 325 MG / hydrocodone bitartrate 5 MG Oral Tablet [place] ([facility]) Hydrocortisone 10 MG/ML / Neomycin 3.5 M G/ML / Polymyxin B 42109 UNT/ML Otic Suspension eehxzpkz-cxgjvtfjz-vxgaxflkf 3.5 mg-10,000 unit/mL-1 % ear drops,susp INSTILL 3 DROPS INTO THE RIGHT EAR BID xaefqgfz-noublesyk-vxrxiqmfi 3.5 mg- 10,000 unit/mL-1 % ear drops,susp INSTILL 3 DROPS INTO THE RIGHT EAR BID completed hydrocortisone 10 MG/ML / neomycin 3.5 MG/ML / polymyxin B 63967 UNT/ML Otic Suspension PETRA ([facility]) Diclofenac Sodium 75 MG Delayed Release Oral Tablet diclofenac sodium 75 mg tablet,delayed release TK 1 T PO BID FOR 10 DAYS diclofenac sodium 75 mg tablet,delayed release TK 1 T PO BID FOR 10 DAYS completed diclofenac sodium 75 MG Delayed Release Oral Tablet [place] ([facility]) Acetaminophen 325 MG / Hydrocodone [place] trate 5 MG Oral Tablet hydrocodone 5 mg- acetaminophen 325 mg tablet hydrocodone 5 mg-acetaminophen 325 mg tablet completed acetaminophen 325 MG / hydrocodone bitartrate 5 MG Oral Tablet PETRA ([facility]) Insurance Providers Payer name Policy type / Coverage type Policy ID Covered constitution party ID Covered constitution party's relationship to dockery Policy Dockery Plan Information EMEDNY [id number] SP [id number] [facility] [id number] SP [id number] MEDICARE [id number] SP [id number] [facility] [id number] SP [id number] [facility](MCAID) O [id number] S [id number] MEDICAID [id number] [facility] MEDICARE [id number] MEDICAID [id number] Deb [id number] [facility] MEDICARE [id number] Deb [id number] MEDICAID M [id number] S [id number] MEDICARE [id number] SP [id number] MEDICAID [id number] SP [id number] MEDICARE [id number] SP [id number] MEDICAID [id number] SP [id number] [facility] MCRHMO [id number] SP [id number] MEDICAID [id number] SP [id number] [facility] MCRHMO [id number] SP [id number] MEDICARE COMPLETE-UH O [id number] S [id number] MEDICAID [facility] [id number] [facility] COMMUNTY PLAN [id number] 18 [id number] MEDICARE COMPLETE [id number] SP [id number] MEDICAID [id number] SP [id number] MEDICAID -PHYSICIAN [id number] 1 [id number] UNHC COMMUNITY PLAN XIX [id number] 18 [id number] [facility] MCRHMO [id number] SP [id number] [facility] MCRHMO [id number] SP [id number] UNHC COMMUNITY PLAN XIX [id number] 18 [id number] MEDICAID-O/P [id number] 18 [id number] MEDICAID -I/P [id number] 18 [id number] UNHC CP DUAL COMP -I/P [id number] 18 [id number] UNHC COMMUNITY PLAN MCDHMO [id number] SP [id number] UNHC COMMUNITY PLAN MCDHMO [id number] SP [id number] UNHC CP DUAL COMP -PHYSICIAN [id number] 18 [id number] UNHC CP DUAL COMP - FACILITY [id number] 18 [id number] MEDICAID [id number] SP [id number] [place] MEDICARE [id number] Deb [id number] MEDICAID M [id number] Self [id number] UHC I [id number] Self [id number] Medicaid [facility] Medicaid [id number] Self B [id number] [facility] Communty Plan Medicaid [id number] Self [id number] [place]ap Part B [id number] Self [id number] Medicare Dme [facility] Medigap Part B [id number] Self [id number] [facility] Medicare Dual Complet Commercial [id number] Self [id number] [facility] Medicare Dual Complete Medigap Part B [id number] Self [id number] [place] Med[place] Part B [id number] Self [id number] Medicaid Medicaid [id number] Self [id number] [facility] Comm Dual Plan Commercial [id number] Self [id number] ANSI-Medicaid [id number] ANSI-Not a Secondary Insurance [id number] ANSI-Medicaid [id number] ANSI-Not a Secondary Insurance [id number] [place] [id number] SP [id number] ANSI-Not a Secondary Insurance [id number] ANSI-Medicaid [id number] Medicaid [facility] Medicaid [id number] Self B [id number] [facility] Communty Plan Medicaid [id number] Self 10 [id number] ANSI-Not a Secondary Insurance [id number] ANSI-Medicaid [id number] ANSI-Not a Secondary Insurance [id number] ANSI-Medicaid [id number] Medicaid Medicaid [id number] Self [id number] [facility] Comm Dual Plan Commercial [id number] Self [id number] [facility] [id number] SP [id number] [facility] [id number] SP [id number] [facility] [id number] SP [id number] Medicaid [facility] Medicaid [id number] Self B [id number] [facility] Communty Plan Medicaid [id number] Self 10 [id number] Medicaid [facility] Medicaid [id number] Self B [id number] [facility] Communty Plan Medicaid [id number] Self 10 [id number] [place] Medigap Part B [id number] Self [id number] Medicare Dme Supplies Medigap Part B [id number] Self [id number] [facility] Medicare Dual Complet Commercial [id number] Self [id number] [place] Medigap Part B [id number] Self [id number] Medicare Dme Supplies Medigap Part B [id number] Self [id number] [facility] Medicare Dual Complet Commercial [id number] Self [id number] Medicaid [facility] Medicaid [id number] Self B [id number] [facility] Communty Plan Medicaid [id number] Self 10 [id number] [facility] Health Maintenance Organization (HMO) [id number] Self [id number] [place] Medigap Part B [id number] Self [id number] Medicare Dme Supplies Medigap Part B [id number] Self [id number] [facility] Medicare Dual Complet Commercial [id number] Self [id number] [facility] Comm Dual Plan Commercial [id number] Self [id number] [place] Medigap Part B [id number] Self [id number] Medicare Dme Supplies Medigap Part B [id number] Self [id number] [facility] Medicare Dual Complet Commercial [id number] Self [id number] Medicaid [facility] Medicaid [id number] Self B [id number] [facility] Communty Plan Medicaid [id number] Self 10 [id number] [place] Medigap Part B [id number] Self [id number] Medicare Dme Supplies Medigap Part B [id number] Self [id number] [facility] Medicare Dual Complet Commercial [id number] Self [id number] Medicaid [facility] Medicaid [id number] Self B [id number] [facility] Communty Plan Medicaid [id number] Self 10 [id number] [place] Medigap Part B [id number] Self [id number] Medicare Dme Supplies Medigap Part B [id number] Self [id number] [facility] Medicare Dual Complet Commercial [id number] Self [id number] Medicaid [facility] Medicaid [id number] Self B [id number] [facility] Communty Plan Medicaid [id number] Self 10 [id number] Medicare [facility] Medigap Part B [id number] Self [id number] Medicare Dme Supplies Medigap Part B [id number] Self [id number] [facility] Medicare Dual Complet Commercial [id number] Self [id number] [facility] [id number] SP [id number] [place] Medigap Part B [id number] Self [id number] Medicare Dme Supplies Medigap Part B [id number] Self [id number] [facility] Medicare Dual Complet Commercial [id number] Self [id number] Medicare [facility] Medigap Part B [id number] Self [id number] Medicare Dme Supplies Medigap Part B [id number] Self [id number] [facility] Medicare Dual Complet Commercial [id number] Self [id number] Medicaid [facility] Medicaid [id number] Self B [id number] [facility] Communty Plan Medicaid [id number] Self 10 [id number] [place] Medigap Part B [id number] Self [id number] Medicare Dme Supplies Medigap Part B [id number] Self [id number] [facility] Medicare Dual Complet Commercial [id number] Self [id number] Medicare [facility] Medigap Part B [id number] Self [id number] Medicare Dme Supplies Medigap Part B [id number] Self [id number] [facility] Medicare Dual Complet Commercial [id number] Self [id number] Medicaid [facility] Medicaid [id number] Self B [id number] [facility] Communty Plan Medicaid [id number] Self 10 [id number] Medicaid [facility] Medicaid [id number] Self B [id number] [facility] Communty Plan Medicaid [id number] Self 10 [id number] Medicaid [facility] Medicaid [id number] Self B [id number] [facility] Communty Plan Medicaid [id number] Self 10 [id number] MEDICAID [id number] SP [id number] MEDICARE [id number] SP [id number] A [place] Medigap Part B [id number] Self [id number] Medicare Dme Supplies Medigap Part B [id number] Self [id number] [facility] Medicare Dual Complet Commercial [id number] Self [id number] [place] Medigap Part B [id number] Self [id number] Medicare Dme Supplies Medigap Part B [id number] Self [id number] [facility] Medicare Dual Complet Commercial [id number] Self [id number] Medicare [facility] Medigap Part B [id number] Self [id number] Medicare Dme Supplies Medigap Part B [id number] Self [id number] [facility] Medicare Dual Complete Commercial [id number] Self [id number] [facility] Communty Plan Medicaid [id number] Self 10 [id number] [facility] COMMUNITY PLAN XIX [id number] 18 [id number] [facility] Communty Plan Medicaid [id number] Self 10 [id number] [facility] O [id number] S [id number] [facility] Communty Plan Medicaid [id number] Self 10 [id number] [facility] COMMUNITY PLAN [id number] 18 [id number] [place] Medigap Part B [id number] Self [id number] Medicare Dme Supplies Medigap Part B [id number] Self [id number] Unhc Community Plan Medicaid [id number] Self [id number] Unhc Community Plan Medicaid [id number] Self [id number] Unhc Community Plan Medicaid [id number] Self [id number] [place] Medigap Part B [id number] Self [id number] Medicare Dme Supplies Medigap Part B [id number] Self [id number] Unhc Community Plan Medicaid [id number] Self [id number] Unhc Community Plan Medicaid [id number] Self [id number] HC COMMUNITY PLAN MCDHMO UNAVAILABLE UNAVAILABLE [place] Medigap Part B [id number] Self [id number] Medicare Dme Supplies Medigap Part B [id number] Self [id number] Un Community Plan Medicaid [id number] Self [id number] Un Community Plan Medicaid [id number] Self [id number] [place] Medigap Part B [id number] Self [id number] Medicare Dme Supplies Medigap Part B [id number] Self [id number] Un Community Plan Medicaid [id number] Self [id number] MEDICAID [id number] SP [id number] [facility] MCRHMO [id number] SP [id number] Un Community Plan Medicaid [id number] Self [id number] [facility] [id number] SP [id number] [facility] Health Maintenance Organization (HMO) Self Un Community Plan Medicaid Self Uhc Medicare Dual Complete [place] Part B Self Medicare Dme Supplies Medigap Part B Self Medicare [facility] Medicare Primary Self UNHC AMERICHOICE HMO [id number] 18 [id number] MEDICARE UNAVAILABLE SP UNAVAILA BLE UNHC AMERICHOICE XIX -HMO [id number] 18 [id number] [place] Self Medicare Natl Gov't Servi Medicare Primary Self Uhc Dual Complete Commercial Self MEDICAID - CLINIC [id number] BS [id number] MEDICARE PART A-CLINIC [id number] 18 [id number] [facility] Medicare Advantage Commercial Self MEDICARE [id number] SP [id number] A MEDICARE -O/P [id number] 18 [id number] MEDICARE [id number] SP [id number] A SELF PAY 2 UNAVAILABLE 1 [place] BLE [place] 3 [id number] 1 [id number] MEDICARE 4 [id number] 1 [id number] A Problems, Conditions, and Diagnoses Code Display Name Description Problem Type Effective Dates Data Source(s) N39.498 [id number] Other urinary incontinence Problem 12:00:00 AM EST eCW1 ([facility]) N95.0 63634079 PMB (postmenopausal bleeding) Problem 2020 12:00:00 AM EST eCW1 ([facility]) 40093035 Type 2 diabetes mellitus Type 2 Diabetes Mellitus Prob maximino 12/30/2020 12:00:00 AM EST PETRA ([facility]) 77644525 Type 2 diabetes mellitus Type 2 Diabetes Mellitus Prob maximino 12/30/2020 12:00:00 AM EST PETRA ([facility]) R06.02 Shortness of breath Shortness of breath 46093260 1 01/21/2020 12:00:00 AM EST [facility] 53741528 Obstructive sleep apnea syndrome Obstructive sle ep apnea syndrome Problem 11/14/2020 12:00:00 AM EST MEDENT ([facility] ) 250259159 Intermittent confusion Intermittent confusion Problem 11/14/2020 12:00:00 AM EST MEDENT ([facility] ) 829330669 Unsteady gait Unsteady gait Problem 11/14/2020 12:00:00 AM EST MEDENT ([facility] ) 691929961 Dizziness Dizziness Problem 11/14/2020 12:00:00 AM ES T MEDENT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 27.0-33.0 normal Mean Corpuscular Hemoglobin [facility] ([facility]) hematocrit 39.3 % 36.0-47.0 normal Hematocrit [facility] ([facility]) mean corpuscular HGB conc 30.5 g/dL 32.0-36.5 Below low lawanda l Mean Corpuscular HGB Conc [facility] ([facility]) neutrophils % 67.9 % 36.0-66.0 Above high normal Neutrophils % A THENA ([facility]) lymph % 14.9 % 24.0-44.0 Below low normal Lymph % [facility] ( [facility]) red cell distribution width 14.6 % 11.5-14.5 Above high no rmal Red Cell Distribution Width [place] ([facility]) platelet count, automated 406 10 150-450 normal Platelet C ount, Automated [place] ([facility]) baso % 0.3 % 0.0-1.0 normal Baso % [facility] ([facility]) mono % 10.7 % 0.0-5.0 Above high normal [place] % [facility] ([facility]) nucleated red blood cell % 0.0 % 0-0 normal Nucleated Red Blood Cell % [facility] ([facility]) eos % 5.9 % 0.0-3.0 Above high normal Eos % [facility] ([facility]) immature granulocyte % 0.3 % 0-3.0 normal Immature Gran ulocyte % [place] ([facility]) eos # 0.5 10 0.0-0.5 normal Eos # [facility] ([facility]) neutrophils # 6.0 10 1.5-8.5 normal Neutrophils # [place] ( [facility]) lymph # 1.3 10 1.5-5.0 Below low normal Lymph # [place] ( [facility]) mono # 1.0 10 0.0-0.8 Above high normal [place] # [place] ([facility]) baso # 0.0 10 0.0-0.2 normal Baso # [facility] ([facility]) ID Date Data Source [id number] 11/13/2020 01:00:00 PM EST [facility] ([facility]) Name Value Range Interpretation Code Description Data Ana rce(s) Supporting Document(s) ferritin 108 NG/mL 8-252 normal Ferritin [facility] ([facility]) ID Date Data Source [id number] 11/13/2020 01:00:00 PM EST [facility] ([facility]) Name Value Range Interpretation Code Description Data Ana rce(s) Supporting Document(s) total 25(oh) vitamin D 60.8 NG/mL 30.0-100.0 normal Total 25(Oh) Vitamin D [place] ([facility]) ID Date Data Source [id number] 11/13/2020 01:00:00 PM EST [facility] ([facility]) Name Value Range Interpretation Code Description Data Ana rce(s) Supporting Document(s) thyroid stimulating hormone 1.530 uIU/mL 0.358-3.740 normal Thyroid Stimulating Hormone [facility] ([facility]) free T4 1.45 NG/dL 0.76-1.46 normal Free T4 [place] ([facility]) ID Date Data Source [id number] 11/13/2020 01:00:00 PM EST [facility] ([facility]) Name Value Range Interpretation Code Description Data Ana rce(s) Supporting Document(s) total iron binding capacity 236 ug/dL 250-450 Below low nor mal Total Iron Binding Capacity [facility] ([facility]) percent saturation 10.2 % 13.2-45.0 Below low normal Percent Sat uration [facility] ([facility]) iron (fe) 24 ug/dL 50-170 Below low normal Iron (Fe) [facility] ( [facility]) ID Date Data Source [id number] 11/13/2020 01:00:00 PM EST [facility] ([facility]) Name Value Range Interpretation Code Description Data Ana rce(s) Supporting Document(s) glucose, fasting 89 mg/dL 70-100 normal Glucose, Fasting AT [place] ([facility]) blood urea nitrogen 22 mg/dL 7-18 Above high normal Blood Ure a Nitrogen [facility] ([facility]) creatinine for GFR 0.70 mg/dL 0.55-1.30 normal Creatinine for GF R [facility] ([facility]) glomerular filtration rate > 60.0 >45 normal [place] r Filtration Rate [facility] ([facility]) sodium level 138 mEq/L 136-145 normal Sodium Level [facility] ([facility]) chloride level 100 mEq/L 98-107 normal Chloride Level [facility] ([facility]) potassium serum 4.1 mEq/L 3.5-5.1 normal Potassium Serum [facility] ([facility]) AST/SGOT 25 U/L 7-37 normal AST/SGOT [place] ([facility]) carbon dioxide level 36 mEq/L 21-32 Above high normal Carbon D ioxide Level [facility] ([facility]) anion gap 2 mEq/L 8-16 Below low normal Anion Gap [facility] ( [facility]) calcium level 9.3 mg/dL 8.8-10.2 normal Calcium Level [facility] ( [facility]) ALT/SGPT 52 U/L 12-78 normal ALT/SGPT [place] ([facility]) bilirubin,total 0.3 mg/dL 0.2-1.0 normal Bilirubin,total ATHE [facility]) alkaline phosphatase 110 U/L 45-117 normal [facility] total protein 7.1 gm/dL 6.4-8.2 normal Total Protein [place] ( [facility]) albumin 3.4 gm/dL 3.2-5.2 normal Albumin [facility] ([facility]) albumin/globulin ratio 1.2-2.2 Below low normal Albumin /globulin Ratio [facility] ([facility]) ID Date Data Source [id number] 11/13/2020 01:00:00 PM EST [facility] ([facility]) Name Value Range Interpretation Code Description Data Ana rce(s) Supporting Document(s) lyme disease IgG/IgM antibodie <0.91 0.00-0.90 normal Lyme Disease IgG/IgM Antibodie [place] ([facility]) lyme disease IgM Ab quantitati <0.80 0.00-0.79 normal Lyme Disease IgM Ab Quantitati [place] ([facility]) ID Date Data Source [id number] 11/13/2020 01:00:00 PM EST [place] ([facility]) Name Value Range Interpretation Code Description Data Ana rce(s) Supporting Document(s) red blood count 4.26 10 4.00-5.40 normal [facility] hemoglobin 12.0 g/dL 12.0-15.5 normal Hemoglobin [place] ([facility]) white blood count 8.9 10 4.0-10.0 normal White Blood Count [place] ([facility]) mean corpuscular volume 92.3 fL 80.0-96.0 normal Mean Corpusc ular Volume [place] ([facility]) hematocrit 39.3 % 36.0-47.0 normal Hematocrit [place] ([facility]) mean corpuscular HGB conc 30.5 g/dL 32.0-36.5 Below low lawanda l Mean Corpuscular HGB Conc [place] ([facility]) mean corpuscular hemoglobin 28.2 pg 27.0-33.0 normal Mean Corpuscular Hemoglobin [place] ([facility]) red cell distribution width 14.6 % 11.5-14.5 Above high no rmal Red Cell Distribution Width [facility] ([facility]) lymph % 14.9 % 24.0-44.0 Below low normal Lymph % [place] ( [facility]) platelet count, automated 406 10 150-450 normal Platelet C ount, Automated [facility] ([facility]) mono % 10.7 % 0.0-5.0 Above high normal [place] % [facility] neutrophils % 67.9 % 36.0-66.0 Above high normal Neutrophils % A THENA ([facility]) immature granulocyte % 0.3 % 0-3.0 normal Immature Gran ulocyte % [facility] ([facility]) eos % 5.9 % 0.0-3.0 Above high normal Eos % [facility] ([facility]) nucleated red blood cell % 0.0 % 0-0 normal Nucleated Red Blood Cell % [facility] ([facility]) baso % 0.3 % 0.0-1.0 normal Baso % [facility] ([facility]) baso # 0.0 10 0.0-0.2 normal Baso # [facility] [facility] neutrophils # 6.0 10 1.5-8.5 normal Neutrophils # PETRA ( [facility]) lymph # 1.3 10 1.5-5.0 Below low normal Lymph # PETRA ( [facility]) eos # 0.5 10 0.0-0.5 normal Eos # PETRA ([facility]) mono # 1.0 10 0.0-0.8 Above high normal [place] # PETRA ([facility]) ID Date Data Source [id number] 11/13/2020 01:00:00 PM EST PETRA ([facility]) Name Value Range Interpretation Code Description Data Ana rce(s) Supporting Document(s) ferritin 108 NG/mL 8-252 normal Ferritin PETRA ([facility]) ID Date Data Source [id number] 11/13/2020 01:00:00 PM EST PETRA ([facility]) Name Value Range Interpretation Code Description Data Ana rce(s) Supporting Document(s) total 25(oh) vitamin D 60.8 NG/mL 30.0-100.0 normal Total 25(Oh) Vitamin D [place] ([facility]) ID Date Data Source [id number] 11/13/2020 01:00:00 PM EST PETRA ([facility]) Name Value Range Interpretation Code Description Data Ana rce(s) Supporting Document(s) thyroid stimulating hormone 1.530 uIU/mL 0.358-3.740 normal Thyroid Stimulating Hormone PETRA ([facility]) free T4 1.45 NG/dL 0.76-1.46 normal Free T4 [place] ([facility]) ID Date Data Source [id number] 11/13/2020 01:00:00 PM EST [facility]) Name Value Range Interpretation Code Description Data Ana rce(s) Supporting Document(s) total iron binding capacity 236 ug/dL 250-450 Below low nor mal Total Iron Binding Capacity PETRA ([facility]) percent saturation 10.2 % 13.2-45.0 Below low normal Percent Sat uration PETRA ([facility]) iron (fe) 24 ug/dL 50-170 Below low normal Iron (Fe) [place] ( [facility]) ID Date Data Source [id number] 11/13/2020 01:00:00 PM EST [place] ([facility]) Name Value Range Interpretation Code Description Data Ana rce(s) Supporting Document(s) blood urea nitrogen 22 mg/dL 7-18 Above high normal Blood Ure a Nitrogen [place] ([facility]) glucose, fasting 89 mg/dL 70-100 normal Glucose, Fasting AT [facility]) creatinine for GFR 0.70 mg/dL 0.55-1.30 normal Creatinine for GF R PETRA ([facility]) glomerular filtration rate > 60.0 >45 normal Glomerula r Filtration Rate PETRA ([facility]) sodium level 138 mEq/L 136-145 normal Sodium Level PETRA (No [facility]) anion gap 2 mEq/L 8-16 Below low normal Anion Gap PETRA ( [facility]) potassium serum 4.1 mEq/L 3.5-5.1 normal Potassium Serum ATH NA [facility]) chloride level 100 mEq/L 98-107 normal Chloride Level [place] ([facility]) carbon dioxide level 36 mEq/L 21-32 Above high normal Carbon D ioxide Level [place] ([facility]) AST/SGOT 25 U/L 7-37 normal AST/SGOT PETRA ([facility]) alkaline phosphatase 110 U/L 45-117 normal Alkaline Phosph atase PETRA ([facility]) ALT/SGPT 52 U/L 12-78 normal ALT/SGPT PETRA ([facility]) calcium level 9.3 mg/dL 8.8-10.2 normal Calcium Level PETRA ( [facility]) bilirubin,total 0.3 mg/dL 0.2-1.0 normal Bilirubin,total ATHE NA ([facility]) total protein 7.1 gm/dL 6.4-8.2 normal Total Protein PETRA ( [facility]) albumin/globulin ratio 1.2-2.2 Below low normal Albumin /globulin Ratio PETRA ([facility]) albumin 3.4 gm/dL 3.2-5.2 normal Albumin PETRA ([facility]) ID Date Data Source [id number] 06/26/2020 12:00:00 AM EDT [facility] ology Imaging Jami Vasquez MD Patient Name: FERNIE GOODWIN [facility] Date of : 1955[place] [address] Date of Exam: 06/26/2020PH#: Fax: [phone] EXAM: [...] rce(s) Supporting Document(s) ID Date Data Source [id number] 03/12/2020 10:30:00 AM EDT [facility] Name Value Range Interpretation Code Description Data Ana rce(s) Supporting Document(s) SARS CORONAVIRUS 2 RNA [facility] This lab was ordered by [facility] and reported by [facility]. ID Date Data Source VITB12 & FOL 12/19/2019 12:00:00 AM EST eCW1 ([facility]) Name Value Range Interpretation Code Description Data Ana rce(s) Supporting Document(s) > 24.0 FOLATE eCW1 ([facility]) 883 VITAMIN B12 LEVEL eCW1 ([facility]) ID Date Data Source TOTAL IRON BINDING CAPACIT 12/19/2019 12:00:00 AM EST eCW1 ( [facility]) Name Value Range Interpretation Code Description Data Ana rce(s) Supporting Document(s) 79.6 13.2-45.0 PERCENT SATURATION eCW1 ([facility]) 309 50-170 IRON (FE) eCW1 ([facility]) 388 250-450 TOTAL IRON BINDING CAPACI TY eCW1 ([facility]) ID Date Data Source FERRITIN 12/19/2019 12:00:00 AM EST eCW1 ([facility]) Name Value Range Interpretation Code Description Data Ana rce(s) Supporting Document(s) 47 8-252 FERRITIN eCW1 ([facility]) ID Date Data Source SERUM PROTEIN ELECTROPHORESIS 12/19/2019 12:00:00 AM EST eCW 1 ([facility]) Name Value Range Interpretation Code Description Data Ana rce(s) Supporting Document(s) 53.7 55.8-66.1 ALBUMIN % eCW1 ([facility]) 7.2 3.2-6.5 QLJH-4-SMIEUTSZY % eCW1 ([facility]) 5.3 2.9-4.9 XQNPZ-9-KAMDONXU % eCW1 ([facility]) 11.8 7.1-11.8 QGOIZ-8-XZYYMSVHT % eCW1 ([facility]) 6.6 4.7-7.2 IPNN-3-BPYWMAYET % eCW1 ([facility]) 3.81 3.29-5.55 ALBUMIN eCW1 ([facility]) 0.47 0.28-0.60 PLRW-7-CREGLXVAZ eCW1 ([facility]) 0.84 0.42-0.99 BRRIT-5-ZLFYSYCKX eCW1 ([facility]) 15.4 11.1-18.8 GAMMA GLOBULIN % eCW1 ([facility]) 0.38 0.17-0.41 TSYGT-2-VXUAVELNF eCW1 ([facility]) 7.1 6.4-8.2 TOTAL PROTEIN eCW1 ([facility]) SEE COMMENT SPEP INTERPRETATION eCW1 ([facility]) 0.51 0.19-0.55 WNTK-2-MFNCCXUQI eCW1 ([facility]) 1.09 0.65-1.58 GAMMA GLOBULINS eCW1 ([facility]) ID Date Data Source Comprehensive Metabolic Profile (CMP) 12/19/2019 12:00:00 AM EST eCW1 ([facility]) Name Value Range Interpretation Code Description Data Ana rce(s) Supporting Document(s) 77 70-100 GLUCOSE, FASTING eCW1 ([facility]) 0.73 0.55-1.30 CREATININE FOR GFR eCW1 ([facility]) > 60.0 >45 GLOMERULAR FILTRATION RATE eCW 1 ([facility]) 9 7-18 BLOOD UREA NITROGEN eCW1 ([facility]) 139 136-145 SODIUM LEVEL eCW1 ([facility]) 9.0 8.8-10.2 CALCIUM LEVEL eCW1 ([facility]) 4.2 3.5-5.1 POTASSIUM SERUM eCW1 ([facility]) 105 98-107 CHLORIDE LEVEL eCW1 ([facility]) 29 21-32 CARBON DIOXIDE LEVEL eCW1 ([facility]) 104 45-117 ALKALINE PHOSPHATASE eCW1 ([facility]) 24 7-37 AST/SGOT eCW1 ([facility]) 7.1 6.4-8.2 TOTAL PROTEIN eCW1 ([facility]) 22 12-78 ALT/SGPT eCW1 ([facility]) 0.4 0.2-1.0 BILIRUBIN,TOTAL eCW1 ([facility]) 3.8 3.2-5.2 ALBUMIN eCW1 ([facility]) 1.15 1.00-1.93 ALBUMIN/GLOBULIN RATIO eCW1 ([facility]) ID Date Data Source CBC with Differential 12/19/2019 12:00:00 AM EST eCW1 ([facility]) Name Value Range Interpretation Code Description Data Ana rce(s) Supporting Document(s) 11.9 12.0-15.5 HEMOGLOBIN eCW1 ([facility]) 6.3 4.0-10.0 WHITE BLOOD COUNT eCW1 ([facility]) 4.86 4.00-5.40 RED BLOOD COUNT eCW1 ([facility]) 24.5 27.0-33.0 MEAN CORPUSCULAR HEMOGLOB IN eCW1 ([facility]) 84.0 80.0-96.0 MEAN CORPUSCULAR VOLUME e CW1 ([facility]) 40.8 36.0-47.0 HEMATOCRIT eCW1 ([facility]) 29.2 32.0-36.5 MEAN CORPUSCULAR HGB CONC eCW1 ([facility]) 27.2 11.5-14.5 RED CELL DISTRIBUTION WID TH eCW1 ([facility]) 23.4 24.0-44.0 LYMPH % eCW1 ([facility]) 60.0 36.0-66.0 NEUTROPHILS % eCW1 ([facility]) 274 150-450 PLATELET COUNT, AUTOMATED eCW1 ([facility]) 3.8 1.5-8.5 NEUTROPHILS # eCW1 ([facility]) 4.4 0.0-3.0 EOS % eCW1 ([facility]) 0.6 0.0-1.0 BASO % eCW1 ([facility]) 11.4 0.0-5.0 MONO % eCW1 ([facility]) 0.3 0.0-0.5 EOS # eCW1 ([facility]) 1.5 1.5-5.0 LYMPH # eCW1 ([facility]) 0.7 0.0-0.8 MONO # eCW1 ([facility]) 0.0 0.0-0.2 BASO # eCW1 ([facility]) ID Date Data Source [id number] 12/14/2019 02:11:18 PM EST [facility] INFORMATIONPatient MRN Name Date of Age Gend*PT [id number] Leanna Goodwin 1955 64 years F OPPT Location Admission Date/Time Visit ID Attending Provider --- --- --- Linwood Harden MD([id number]) EPI ID CSN Admitting Provider [id number] ---name: Leanna Martin: [id number]: 1955Infectious Disease Progress NoteWhich consisted of ongoing psychiatric illness 64-year-old female withhistory of prior cigarette use/vaping and status post prior surgery on the hospitalized (pneumonia community-acquired with organisms and sensitivitiescurrently growing MAC with recent head CT 10/13/2019 with results noted in [id number] 09/2019 follow-up note. At that point he [...] theaudiologist recommended follow-up with her physician and consultant rn toassess asymetrical mixed Hearing loss in the [...] underwent Opthalmological evaluation via Dr Shields at [facility]. She noted the patient was complaining of [...] .General Appearance: Pleasant, cooperative, alert and oriented [id number]: see belowHead: NormocephalicEyes: Extraocular movements intact, pupils [...] input(s): LABALBUResults from last 7 daysLab Units 12/13/[id number] mmol/L 137.0POTASSIUM mmol/L 4.9CHLORIDE mmol/L 99.0BUN MG/DL [...] her current Abilify atorvastatin Depakote ropinirole trazodoneand [facility] antimicrobial [facility] pharmacist Ana Rosa.suggested having the [...] clinic follow [facility] 2020Linwood Harden MD12/14/201:28 PMPlease note that from 1:28 to 2:09 pm was spent directly with the pt whilereviewing the patients record, interviewing and examining the patient, andspeaing with clinic RN Name Value Range Interpretation Code Description Data Ana e(s) Supporting Document(s) ID Date Data Source [id number] 11/25/2019 02:20:00 PM EST MINOR ([facility]) Name Value Range Interpretation Code Description Data Ana rce(s) Supporting Document(s) Color of Urine michelle MEDENT ([facility]) Leukocytes + MEDENT ([facility]) Appearance of Urine clear MEDENT ([facility]) Spec [place] 1.015 MEDENT ([facility]) pH of Urine by Test strip 6 MEDE NT ([facility]) Inhouse Glucose norm MEDENT ([facility] Ketones [Presence] in Urine by Test strip - MEDENT ([facility]) Protein [Presence] in Urine by Test strip trace MEDENT ([facility]) Nitrate [Presence] in Urine - ME DENT ([facility]) Urobilinogen norm MEDENT ([facility]) Blood type and Indirect antibody screen panel - Blood - MEDENT ([facility]) Bilirubin.total [Presence] in Urine by Test strip - MEDENT ([facility]) Procedure Social History Code Duration Value Status Description Data Source(s ) Smoking 01/14/2021 12:00:00 AM EST Former Smoker completed Former Smoker eCW1 ([facility]) Smoking 01/14/2021 12:00:00 AM EST Former Smoker completed Former Smoker eCW1 ([facility]) Smoking 11/27/2020 12:00:00 AM EST Former Smoker completed Former Smoker eCW1 ([facility]) Smoking 11/27/2020 12:00:00 AM EST Former Smoker completed Former Smoker eCW1 ([facility]) Smoking 11/27/2020 12:00:00 AM EST Former Smoker completed Former Smoker eCW1 ([facility]) Smoking 11/27/2020 12:00:00 AM EST Former Smoker completed Former Smoker eCW1 ([facility]) Smoking 11/27/2020 12:00:00 AM EST Former Smoker completed Former Smoker eCW1 ([facility]) Smoking 11/27/2020 12:00:00 AM EST Former Smoker completed Former Smoker eCW1 ([facility]) Smoking 11/27/2020 12:00:00 AM EST Former Smoker completed Former Smoker eCW1 ([facility]) Alcohol intake 11/20/2020 12:00:00 AM EST Not Currently completed [facility] Cigarette pack-years 11/20/2020 12:00:00 AM EST UNK completed [facility] Cigarettes smoked current (pack per day) - Reported 11/20/20 20 12:00:00 AM EST UNK completed [facility] Smoking 11/20/2020 12:00:00 AM EST Former smoker completed Former smoker [facility] Smoking 07/13/2020 12:00:00 AM EDT Patient is a former smoker completed Patient is a former smoker [facility] ([facility], ) Vital Signs ID Date Data Source UNK Name Value Range Interpretation Code Description Data Source(s) Body weight 2784 [oz_av] 2784 [oz_av] PETRA ([facility]) Systolic blood pressure 145 mm[Hg] 145 mm[Hg] Wilma ARANGO ([facility]) Body mass index (BMI) [Ratio] 29.4 kg/m2 29.4 k g/m2 PETRA ([facility]) Body height 64.5 [in_i] 64.5 [in_i] PETRA ([facility]) Diastolic blood pressure 83 mm[Hg] 83 mm[Hg] PETRA ([facility]) [place] body weight 120 [lb_av] 120 [lb_av] MEDEN T ([facility], ) Body mass index (BMI) [Ratio] 29.7 kg/m2 29.7 k g/m2 [facility] Body weight 173.00 [lb_av] 173.00 [lb_av] MEDEN T ([facility], ) Body height 64 [in_i] 64 [in_i] [facility] 5'4" Respiratory rate 12 /min 12 /min [facility] ( [facility] ) Body weight 2768 [oz_av] 2768 [oz_av] PETRA ([facility]) Systolic blood pressure 131 mm[Hg] 131 mm[Hg] Wilma ARANGO ([facility]) Body mass index (BMI) [Ratio] 29.2 kg/m2 29.2 k g/m2 PETRA ([facility]) Body height 64.5 [in_i] 64.5 [in_i] PETRA ([facility]) Diastolic blood pressure 76 mm[Hg] 76 mm[Hg] PETRA ([facility]) Body weight 2768 [oz_av] 2768 [oz_av] PETRA ([facility]) Systolic blood pressure 131 mm[Hg] 131 mm[Hg] A THENA ([facility]) Body mass index (BMI) [Ratio] 29.2 kg/m2 29.2 k g/m2 PETRA ([facility]) Body height 64.5 [in_i] 64.5 [in_i] PETRA ([facility]) Diastolic blood pressure 76 mm[Hg] 76 mm[Hg] PETRA ([facility]) Body weight 2768 [oz_av] 2768 [oz_av] PETRA ([facility]) Systolic blood pressure 131 mm[Hg] 131 mm[Hg] A THENA ([facility]) Body mass index (BMI) [Ratio] 29.2 kg/m2 29.2 k g/m2 PETRA ([facility]) Body height 64.5 [in_i] 64.5 [in_i] PETRA ([facility]) Diastolic blood pressure 76 mm[Hg] 76 mm[Hg] PETRA ([facility]) Diastolic blood pressure 71 mm[Hg] 71 mm[Hg] eCW1 ([facility]) Systolic blood pressure 132 mm[Hg] 132 mm[Hg] e CW1 ([facility]) Body temperature 98.3 [degF] 98.3 [degF] eCW1 ( [facility]) Respiratory rate 18 /min 18 /min eCW1 ([facility]) Heart rate 95 /min 95 /min eCW1 ([facility]) Body mass index (BMI) [Ratio] 29.66 kg/m2 29.66 kg/m2 W1 ([facility]) Body height 64 [in_i] 64 [in_i] eCW1 ([facility]) Body weight 172.8 [lb_av] 172.8 [lb_av] eCW1 ([facility]) Oxygen saturation in Arterial blood by Pulse oximetry 93 % 93 % [facility] Body mass index (BMI) [Ratio] 29.52 kg/m2 29.52 kg/m2 [facility] Body weight 78.019 kg 78.019 kg [facility] Body height 162.6 cm 162.6 cm [facility] Heart rate 72 /min 72 /min [facility] Diastolic blood pressure 72 mm[Hg] 72 mm[Hg] [facility] Systolic blood pressure 130 mm[Hg] 130 mm[Hg] [facility] [place] body weight 120 [lb_av] 120 [lb_av] MEDEN T ([facility] ) Body mass index (BMI) [Ratio] 29.7 kg/m2 29.7 k g/m2 MEDENT ([facility] ) Body weight 173.00 [lb_av] 173.00 [lb_av] MEDEN T ([facility], ) Body height 64 [in_i] 64 [in_i] MEDENT ([facility], ) 5'4" Respiratory rate 12 /min 12 /min [facility] ( [facility] ) Diastolic blood pressure 63 mm[Hg] 63 mm[Hg] eCW1 ([facility]) Systolic blood pressure 133 mm[Hg] 133 mm[Hg] e CW1 ([facility]) Body temperature 98.0 [degF] 98.0 [degF] eCW1 ( [facility]) Respiratory rate 18 /min 18 /min eCW1 ([facility]) Heart rate 100 /min 100 /min eCW1 ([facility]) Body mass index (BMI) [Ratio] 29.62 kg/m2 29.62 kg/m2 eCW1 ([facility]) Body height 64 [in_i] 64 [in_i] eCW1 ([facility]) Body weight 172.6 [lb_av] 172.6 [lb_av] eCW1 ([facility]) Body weight 2776 [oz_av] 2776 [oz_av] PETRA ([facility]) Systolic blood pressure 130 mm[Hg] 130 mm[Hg] A [facility] ([facility]) Body mass index (BMI) [Ratio] 29.3 kg/m2 29.3 k g/m2 PETRA ([facility]) Body height 64.5 [in_i] 64.5 [in_i] PETRA ([facility]) Diastolic blood pressure 82 mm[Hg] 82 mm[Hg] PETRA ([facility]) Body weight 2776 [oz_av] 2776 [oz_av] PETRA ([facility]) Systolic blood pressure 130 mm[Hg] 130 mm[Hg] A [facility] ([facility]) Body mass index (BMI) [Ratio] 29.3 kg/m2 29.3 k g/m2 PETRA ([facility]) Body height 64.5 [in_i] 64.5 [in_i] PETRA ([facility]) Diastolic blood pressure 82 mm[Hg] 82 mm[Hg] PETRA ([facility]) Body weight 2776 [oz_av] 2776 [oz_av] PETRA ([facility]) Systolic blood pressure 130 mm[Hg] 130 mm[Hg] A [facility] ([facility]) Body mass index (BMI) [Ratio] 29.3 kg/m2 29.3 k g/m2 PETRA ([facility]) Body height 64.5 [in_i] 64.5 [in_i] PETRA ([facility]) Diastolic blood pressure 82 mm[Hg] 82 mm[Hg] PETRA ([facility]) Body weight 2776 [oz_av] 2776 [oz_av] PETRA ([facility]) Systolic blood pressure 130 mm[Hg] 130 mm[Hg] A [facility] ([facility]) Body mass index (BMI) [Ratio] 29.3 kg/m2 29.3 k g/m2 PETRA ([facility]) Body height 64.5 [in_i] 64.5 [in_i] PETRA ([facility]) Diastolic blood pressure 82 mm[Hg] 82 mm[Hg] PETRA ([facility]) Diastolic blood pressure 67 mm[Hg] 67 mm[Hg] eCW1 ([facility]) Systolic blood pressure 140 mm[Hg] 140 mm[Hg] e CW1 ([facility]) Body temperature 98.3 [degF] 98.3 [degF] eCW1 ( [facility]) Respiratory rate 16 /min 16 /min eCW1 ([facility]) Heart rate 91 /min 91 /min eCW1 ([facility]) Body mass index (BMI) [Ratio] 30.04 kg/m2 30.04 kg/m2 eCW1 ([facility]) Body height 64 [in_i] 64 [in_i] eCW1 ([facility]) Body weight 175 [lb_av] 175 [lb_av] eCW1 ([facility]) Diastolic blood pressure 79 mm[Hg] 79 mm[Hg] eCW1 ([facility]) Systolic blood pressure 132 mm[Hg] 132 mm[Hg] e CW1 ([facility]) Body mass index (BMI) [Ratio] 29.18 kg/m2 29.18 kg/m2 eCW1 ([facility]) Body height 64 [in_i] 64 [in_i] eCW1 ([facility]) Body weight 77.11 kg 77.11 kg eCW1 ([facility]) Body weight 170 [lb_av] 170 [lb_av] eCW1 ([facility]) Diastolic blood pressure 70 mm[Hg] 70 mm[Hg] eCW1 ([facility]) Systolic blood pressure 122 mm[Hg] 122 mm[Hg] e CW1 ([facility]) Body temperature 98.1 [degF] 98.1 [degF] eCW1 ( [facility]) Heart rate 96 /min 96 /min eCW1 ([facility]) Body mass index (BMI) [Ratio] 29.21 kg/m2 29.21 kg/m2 eCW1 ([facility]) Body height 64 [in_i] 64 [in_i] eCW1 ([facility]) Body weight 77.2 kg 77.2 kg eCW1 ([facility]) Body weight 170.2 [lb_av] 170.2 [lb_av] eCW1 ([facility]) Body mass index (BMI) [Ratio] 29.3 kg/m2 29.3 k g/m2 MEDENT ([facility]) Body weight 171.00 [lb_av] 171.00 [lb_av] MEDEN T ([facility]) Body height 64 [in_i] 64 [in_i] MEDENT ([facility]) 5'4" Body temperature 96.8 [degF] 96.8 [degF] [facility] ([facility]) Oxygen saturation in Arterial blood by Pulse oximetry 94 % 94 % [facility] ([facility]) Heart rate 93 /min 93 /min [facility] ([facility]) Diastolic blood pressure 80 mm[Hg] 80 mm[Hg] [facility] ([facility]) Systolic blood pressure 120 mm[Hg] 120 mm[Hg] M EDENT ([facility]) Body weight 79.380 kg 79.380 kg [facility] ([facility]) Body mass index (BMI) [Ratio] 30.0 kg/m2 30.0 k g/m2 [facility] ([facility]) Body weight 175.00 [lb_av] 175.00 [lb_av] MEDEN T ([facility], ) pt states Body height 64 [in_i] 64 [in_i] [facility] ([facility]) 5'4" Body temperature 97.7 [degF] 97.7 [degF] [facility] ([facility]) Body weight 83.916 kg 83.916 kg [facility] ([facility]) Body mass index (BMI) [Ratio] 31.8 kg/m2 31.8 k g/m2 [facility] ([facility]) Body weight 185.00 [lb_av] 185.00 [lb_av] MEDEN T ([facility]) pt states Body height 64 [in_i] 64 [in_i] MED[facility] ([facility]) 5'4" Body temperature 97.2 [degF] 97.2 [degF] [facility] ([facility]) Oxygen saturation in Arterial blood by Pulse oximetry 93 % 93 % [facility] ([facility]) Heart rate 89 /min 89 /min [facility] ([facility]) Diastolic blood pressure 80 mm[Hg] 80 mm[Hg] [facility] ([facility]) Systolic blood pressure 130 mm[Hg] 130 mm[Hg] M EDENT ([facility]) Body weight 84.823 kg 84.823 kg [facility] ([facility]) Body mass index (BMI) [Ratio] 32.1 kg/m2 32.1 k g/m2 [facility] ([facility]) Body weight 187.00 [lb_av] 187.00 [lb_av] MEDEN T ([facility]) Body height 64 [in_i] 64 [in_i] [facility] ([facility]) 5'4" Diastolic blood pressure 74 mm[Hg] 74 mm[Hg] eCW1 ([facility]) Systolic blood pressure 132 mm[Hg] 132 mm[Hg] e CW1 ([facility]) Body temperature 98.4 [degF] 98.4 [degF] eCW1 ( [facility]) Respiratory rate /min eCW1 ([facility]) Heart rate 89 /min 89 /min eCW1 ([facility]) Body mass index (BMI) [Ratio] 33.30 kg/m2 33.30 kg/m2 eCW1 ([facility]) Body height 64 [in_us] 64 [in_us] eCW1 ([facility]) Body weight Measured 194 [lb_av] 194 [lb_av] eC W1 ([facility]) Body weight 84.823 kg 84.823 kg [facility] ([facility]) Body mass index (BMI) [Ratio] 32.1 kg/m2 32.1 k g/m2 [facility] ([facility]) Body weight 187.00 [lb_av] 187.00 [lb_av] MEDEN T ([facility]) Body height 64 [in_i] 64 [in_i] [facility] ([facility]) 5'4" Body weight 84.823 kg 84.823 kg [facility] ([facility]) Body mass index (BMI) [Ratio] 32.1 kg/m2 32.1 k g/m2 [facility] ([facility]) Body weight 187.00 [lb_av] 187.00 [lb_av] MED[facility] T ([facility]) Body height 64 [in_i] 64 [in_i] [facility] ([facility]) 5'4" Oxygen saturation in Arterial blood by Pulse oximetry 95 % 95 % [facility] ([facility]) Heart rate 96 /min 96 /min [facility] ([facility]) Diastolic blood pressure 80 mm[Hg] 80 mm[Hg] [facility] ([facility]) Systolic blood pressure 142 mm[Hg] 142 mm[facility]Hg] [facility] Body weight 78.473 kg 78.473 kg [facility] ([facility]) Body mass index (BMI) [Ratio] 29.7 kg/m2 29.7 k g/m2 [facility] ([facility]) Body weight 173.00 [lb_av] 173.00 [lb_av] MEDEN T ([facility]) Body height 64 [in_i] 64 [in_i] [facility]" Body height 64 [in_i] 64 [in_i] [facility] ([facility]) 5'4" Diastolic blood pressure 70 mm[Hg] 70 mm[Hg] eCW1 ([facility]) Systolic blood pressure 132 mm[Hg] 132 mm[Hg] e CW1 ([facility]) Body temperature 98.8 [degF] 98.8 [degF] eCW1 ( [facility]) Respiratory rate 20 /min 20 /min eCW1 ([facility]) Heart rate 85 /min 85 /min eCW1 ([facility]) Body mass index (BMI) [Ratio] 30.72 kg/m2 30.72 kg/m2 W1 ([facility]) Body height 64 [in_us] 64 [in_us] eCW1 ([facility]) Body weight Measured 179.0 [lb_av] 179.0 [lb_av ] eCW1 ([facility]) Body weight 80.457 kg 80.457 kg [facility] ([facility]) Body weight 177.38 [lb_av] 177.38 [lb_av] MEDEN T ([facility]) Oxygen saturation in Arterial blood by Pulse oximetry 92 % 92 % [facility] ([facility]) room air Respiratory rate 18 /min 18 /min MED[facility] ( [facility]) Body temperature 97.5 [degF] 97.5 [degF] [facility] ([facility]) Heart rate 88 /min 88 /min [facility] ([facility]) Diastolic blood pressure 76 mm[Hg] 76 mm[Hg] [facility] ([facility]) Systolic blood pressure 159 mm[Hg] 159 mm[Hg] M EDENT ([facility]) Patient Treatment Plan of Care Planned Activity Planned Date Details Description Data Source (s) duloxetine 60 MG Delayed Release Oral Capsule 01/17/2021 12:00:00 A M EST PETRA ([facility]) Estradiol 0.1 MG/ML Vaginal Cream 01/14/2021 12:00:00 AM EST eCW1 ([facility]) Estradiol 0.1 MG/ML Vaginal Cream 01/14/2021 12:00:00 AM EST eCW1 ([facility]) tizanidine 2 MG Oral Tablet 11/13/2020 12:00:00 AM EST eCW1 ([facility]) tizanidine 2 MG Oral Tablet 11/13/2020 12:00:00 AM EST eCW1 ([facility]) tizanidine 2 MG Oral Tablet 11/13/2020 12:00:00 AM EST eCW1 ([facility]) 12 HR Guaifenesin 600 MG Extended Release Oral Tablet [Mucinex] 11/13/2020 12:00:00 AM EST [facility] tizanidine 2 MG Oral Tablet 11/13/2020 12:00:00 AM EST eCW1 ([facility]) tizanidine 2 MG Oral Tablet 11/13/2020 12:00:00 AM EST eCW1 ([facility]) tizanidine 2 MG Oral Tablet 11/13/2020 12:00:00 AM EST eCW1 ([facility]) tizanidine 2 MG Oral Tablet 11/13/2020 12:00:00 AM EST eCW1 ([facility]) pregabalin 150 MG Oral Capsule [Lyrica] 11/12/2020 12:00:00 AM EST eCW1 ([facility]) pregabalin 150 MG Oral Capsule [Lyrica] 11/12/2020 12:00:00 AM EST eCW1 ([facility]) pregabalin 150 MG Oral Capsule [Lyrica] 11/12/2020 12:00:00 AM EST eCW1 ([facility]) pregabalin 150 MG Oral Capsule [Lyrica] 11/12/2020 12:00:00 AM EST eCW1 ([facility]) pregabalin 100 MG Oral Capsule [Lyrica] 11/12/2020 12:00:00 AM EST eCW1 ([facility]) pregabalin 100 MG Oral Capsule [Lyrica] 11/12/2020 12:00:00 AM EST eCW1 ([facility]) pregabalin 75 MG Oral Capsule [Lyrica] 11/12/2020 12:00:00 AM EST eCW1 ([facility]) pregabalin 150 MG Oral Capsule [Lyrica] 11/12/2020 12:00:00 AM EST eCW1 ([facility]) pregabalin 150 MG Oral Capsule [Lyrica] 11/12/2020 12:00:00 AM EST eCW1 ([facility]) pregabalin 150 MG Oral Capsule [Lyrica] 11/12/2020 12:00:00 AM EST eCW1 ([facility]) pregabalin 75 MG Oral Capsule [Lyrica] 11/12/2020 12:00:00 AM EST eCW1 ([facility]) pregabalin 75 MG Oral Capsule [Lyrica] 11/12/2020 12:00:00 AM EST eCW1 ([facility]) pregabalin 75 MG Oral Capsule [Lyrica] 11/12/2020 12:00:00 AM EST eCW1 ([facility]) Acetaminophen 300 MG / Codeine Phosphate 30 MG Oral Ta blet 11/02/2020 12:00:00 AM EST eCW1 ([facility]) Acetaminophen 300 MG / Codeine Phosphate 30 MG Oral Ta blet 11/02/2020 12:00:00 AM EST eCW1 ([facility]) Acetaminophen 300 MG / Codeine Phosphate 30 MG Oral Ta blet 11/02/2020 12:00:00 AM EST eCW1 ([facility]) Acetaminophen 300 MG / Codeine Phosphate 30 MG Oral Ta blet 11/02/2020 12:00:00 AM EST eCW1 ([facility]) Acetaminophen 300 MG / Codeine Phosphate 30 MG Oral Ta blet 11/02/2020 12:00:00 AM EST eCW1 ([facility]) Acetaminophen 500 MG Oral Tablet 11/01/2020 12:00:00 AM EST eCW1 ([facility]) Acetaminophen 500 MG Oral Tablet 11/01/2020 12:00:00 AM EST eCW1 ([facility]) Acetaminophen 500 MG Oral Tablet 11/01/2020 12:00:00 AM EST eCW1 ([facility]) Acetaminophen 500 MG Oral Tablet 11/01/2020 12:00:00 AM EST eCW1 ([facility]) Acetaminophen 500 MG Oral Tablet 11/01/2020 12:00:00 AM EST eCW1 ([facility]) Acetaminophen 500 MG Oral Tablet 11/01/2020 12:00:00 AM EST eCW1 ([facility]) gabapentin 100 MG Oral Capsule 10/31/2020 12:00:00 AM EST [facility] gabapentin 100 MG Oral Capsule 10/31/2020 12:00:00 AM EST eCW1 ([facility]) gabapentin 100 MG Oral Capsule 10/31/2020 12:00:00 AM EST eCW1 ([facility]) gabapentin 100 MG Oral Capsule 10/31/2020 12:00:00 AM EST eCW1 ([facility]) gabapentin 100 MG Oral Capsule 10/31/2020 12:00:00 AM EST eCW1 ([facility]) gabapentin 100 MG Oral Capsule 10/31/2020 12:00:00 AM EST eCW1 ([facility]) gabapentin 100 MG Oral Capsule 10/31/2020 12:00:00 AM EST eCW1 ([facility]) Levothyroxine Sodium 0.15 MG Oral Tablet 10/19/2020 12:00:00 AM EST [facility] Ergocalciferol [id number] UNT Oral Capsule 10/19/2020 12:00:00 AM EST [facility] Levothyroxine Sodium 0.2 MG Oral Tablet 09/14/2020 12:00:00 AM EDT [facility] Diclofenac Sodium 75 MG Delayed Release Oral Tablet 08/16/20 12:00:00 AM EDT [facility] meloxicam 7.5 MG Oral Tablet 06/04/2020 12:00:00 AM EDT [facility] 24 HR mirabegron 50 MG Extended Release Oral Tablet [M yrbetriq] 06/04/2020 12:00:00 AM EDT [facility] 7 ACTUAT umeclidinium 0.0625 MG/ACTUAT Dry Powder Inha ler [Incruse] 06/04/2020 12:00:00 AM EDT [facility] Rosuvastatin calcium 10 MG Oral Tablet 05/28/2020 12:00:00 AM EDT [facility] ropinirole 2 MG Oral Tablet 05/28/2020 12:00:00 AM EDT [facility] Cyclobenzaprine hydrochloride 10 MG Oral Tablet 04/23/2020 12:00:00 AM EDT [facility] Prednisone 10 MG Oral Tablet 04/05/2020 12:00:00 AM EDT eCW1 ([facility]) Levothyroxine Sodium 0.125 MG Oral Tablet 01/28/2020 12:00:00 AM ES T [facility] Sulfasalazine 500 MG Oral Tablet 11/21/2019 12:00:00 AM EST [facility] [employer] (doxylamine) 25 mg tablet Take by oral route. PETRA ([facility]) Trazodone Hydrochloride 100 MG Oral Tablet [facility] ([facility]) Sulfasalazine 500 MG Oral Tablet [facility] ([facility]) Sulfamethoxazole 800 MG / Trimethoprim 160 MG Oral Tablet [facility] ([facility]) ropinirole 1 MG Oral Tablet [facility] ([facility]) pregabalin 75 MG Oral Capsule [facility] ([facility]) Prednisone 10 MG Oral Tablet [facility] ([facility]) prednisolone acetate 10 MG/ML Ophthalmic Suspension [facility] ([facility]) Hydrocortisone 10 MG/ML / Neomycin 3.5 M G/ML / Polymyxin B 51073 UNT/ML Otic Suspension [facility] ([facility]) Naproxen 500 MG Oral Tablet [facility] ([facility]) Meclizine Hydrochloride 12.5 MG Oral Tablet [facility] ([facility]) Levothyroxine Sodium 0.2 MG Oral Tablet [facility] ([facility]) Levothyroxine Sodium 0.125 MG Oral Tablet [facility] ([facility]) Levothyroxine Sodium 0.112 MG Oral Tablet [facility] ([facility]) Levofloxacin 500 MG Oral Tablet [facility] ([facility]) Hydroxyzine Hydrochloride 10 MG Oral Tablet [facility] ([facility]) Acetaminophen 325 MG / Hydrocodone Bitartrate 5 MG Oral Tablet [facility] ([facility]) gabapentin 100 MG Oral Capsule [facility] ([facility]) Erythromycin 0.005 MG/MG Ophthalmic Ointment [facility] ([facility]) Ergocalciferol 43689 UNT Oral Capsule [facility] ([facility]) 24 HR Divalproex Sodium 500 MG Extended Release Oral Tablet [facility] ([facility]) Diclofenac Sodium 75 MG Delayed Release Oral Tablet [facility] ([facility]) Diclofenac Sodium 0.01 MG/MG Topical Gel [facility] ([facility]) Cyclobenzaprine hydrochloride 10 MG Oral Tablet [facility] ([facility]) Clindamycin 300 MG Oral Capsule [facility] ([facility]) Cephalexin 500 MG Oral Capsule [facility] ([facility]) fluticasone furoate 0.1 MG/ACTUAT / ling nterol 0.025 MG/ACTUAT Dry Powder Inhaler [facility] ([facility]) Amoxicillin 875 MG / Clavulanate 125 MG Oral Tablet [facility] ([facility]) Aleve PETRA ([facility]) Acetaminophen 300 MG / Codeine Phosphate 30 MG Oral Tablet [facility] ([facility]) Acetaminophen 300 MG / Codeine Phosphate 30 MG Oral Tablet [facility] ([facility]) Trazodone Hydrochloride 100 MG Oral Tablet [facility] ([facility]) Sulfasalazine 500 MG Oral Tablet [facility] ([facility]) Sulfamethoxazole 800 MG / Trimethoprim 160 MG Oral Tablet [facility] ([facility]) ropinirole 2 MG Oral Tablet [facility] ([facility]) pregabalin 75 MG Oral Capsule [facility] ([facility]) Prednisone 10 MG Oral Tablet [facility] ([facility]) prednisolone acetate 10 MG/ML Ophthalmic Suspension [facility] ([facility]) Hydrocortisone 10 MG/ML / Neomycin 3.5 M G/ML / Polymyxin B 97055 UNT/ML Otic Suspension [facility] ([facility]) Naproxen 500 MG Oral Tablet [facility] ([facility]) Meclizine Hydrochloride 12.5 MG Oral Tablet [facility] ([facility]) Levothyroxine Sodium 0.2 MG Oral Tablet [facility] ([facility]) Levothyroxine Sodium 0.125 MG Oral Tablet [facility] ([facility]) Levothyroxine Sodium 0.112 MG Oral Tablet [facility] ([facility]) Levofloxacin 500 MG Oral Tablet [facility] ([facility]) Hydroxyzine Hydrochloride 10 MG Oral Tablet [facility] ([facility]) Acetaminophen 325 MG / Hydrocodone Bitartrate 5 MG Oral Tablet [facility] ([facility]) gabapentin 100 MG Oral Capsule [facility] ([facility]) Erythromycin 0.005 MG/MG Ophthalmic Ointment [facility] ([facility]) Ergocalciferol 46386 UNT Oral Capsule [facility] ([facility]) duloxetine 60 MG Delayed Release Oral Capsule [facility] ([facility]) 24 HR Divalproex Sodium 500 MG Extended Release Oral Tablet [facility] ([facility]) Diclofenac Sodium 75 MG Delayed Release Oral Tablet [facility] ([facility]) Diclofenac Sodium 0.01 MG/MG Topical Gel [facility] ([facility]) Cyclobenzaprine hydrochloride 10 MG Oral Tablet [facility] ([facility]) Clindamycin 300 MG Oral Capsule [facility] ([facility]) Cephalexin 500 MG Oral Capsule [facility] ([facility]) fluticasone furoate 0.1 MG/ACTUAT / ling nterol 0.025 MG/ACTUAT Dry Powder Inhaler [facility] ([facility]) Amoxicillin 875 MG / Clavulanate 125 MG Oral Tablet [facility] ([facility]) Aleve [facility]RA ([facility]) 14 ACTUAT fluticasone furoate 0.1 MG/ACT UAT / vilanterol 0.025 MG/ACTUAT Dry Powder Inhaler [facility] 24 HR Divalproex Sodium 500 MG Extended Release Oral Tablet [facility] pantoprazole 20 MG Delayed Release Oral Tablet [facility] duloxetine 60 MG Delayed Release Oral Capsule [facility] 30 ACTUAT fluticasone furoate 0.2 MG/ACT UAT / vilanterol 0.025 MG/ACTUAT Dry Powder Inhaler [facility] Trazodone Hydrochloride 100 MG Oral Tablet [facility] ([facility]) Sulfasalazine 500 MG Oral Tablet [facility] ([facility]) Sulfamethoxazole 800 MG / Trimethoprim 160 MG Oral Tablet [facility] ([facility]) ropinirole 2 MG Oral Tablet [facility] ([facility]) Prednisone 10 MG Oral Tablet [facility] ([facility]) prednisolone acetate 10 MG/ML Ophthalmic Suspension [facility] ([facility]) Hydrocortisone 10 MG/ML / Neomycin 3.5 M G/ML / Polymyxin B [id number] UNT/ML Otic Suspension [facility] ([facility]) Naproxen 500 MG Oral Tablet [facility] ([facility]) 12 HR Guaifenesin 600 MG Extended Release Oral Tablet [Mucinex] [facility] ([facility]) Meclizine Hydrochloride 12.5 MG Oral Tablet [facility] ([facility]) Levothyroxine Sodium 0.2 MG Oral Tablet [facility] ([facility]) Levothyroxine Sodium 0.125 MG Oral Tablet [facility] ([facility]) Levothyroxine Sodium 0.112 MG Oral Tablet [facility] ([facility]) Levofloxacin 500 MG Oral Tablet [facility] ([facility]) Hydroxyzine Hydrochloride 10 MG Oral Tablet [facility] ([facility]) Acetaminophen 325 MG / Hydrocodone Bitartrate 5 MG Oral Tablet [facility] ([facility]) duloxetine 60 MG Delayed Release Oral Capsule [facility] ([facility]) 24 HR Divalproex Sodium 500 MG Extended Release Oral Tablet [facility] ([facility]) Diclofenac Sodium 75 MG Delayed Release Oral Tablet [facility] ([facility]) Diclofenac Sodium 0.01 MG/MG Topical Gel [facility] ([facility]) Cyclobenzaprine hydrochloride 10 MG Oral Tablet [facility] ([facility]) Cephalexin 500 MG Oral Capsule [facility] ([facility]) Amoxicillin 875 MG / Clavulanate 125 MG Oral Tablet [facility] ([facility]) Acetaminophen 300 MG / Codeine Phosphate 30 MG Oral Tablet [facility] ([facility]) Trazodone Hydrochloride 100 MG Oral Tablet [facility] ([facility]) Sulfasalazine 500 MG Oral Tablet [facility] ([facility]) Sulfamethoxazole 800 MG / Trimethoprim 160 MG Oral Tablet [facility] ([facility]) ropinirole 2 MG Oral Tablet [facility] ([facility]) pregabalin 75 MG Oral Capsule [facility] ([facility]) prednisolone acetate 10 MG/ML Ophthalmic Suspension [facility] ([facility]) Hydrocortisone 10 MG/ML / Neomycin 3.5 M G/ML / Polymyxin B 86291 UNT/ML Otic Suspension [facility] ([facility]) Naproxen 500 MG Oral Tablet [facility] ([facility]) Meclizine Hydrochloride 12.5 MG Oral Tablet [facility] ([facility]) Levothyroxine Sodium 0.2 MG Oral Tablet [facility] ([facility]) Levothyroxine Sodium 0.125 MG Oral Tablet [facility] ([facility]) Levothyroxine Sodium 0.112 MG Oral Tablet [facility] ([facility]) Levofloxacin 500 MG Oral Tablet [facility] ([facility]) Hydroxyzine Hydrochloride 10 MG Oral Tablet [facility] ([facility]) Acetaminophen 325 MG / Hydrocodone Bitartrate 5 MG Oral Tablet [facility] ([facility]) Erythromycin 0.005 MG/MG Ophthalmic Ointment [facility] ([facility]) duloxetine 60 MG Delayed Release Oral Capsule [facility] ([facility]) 24 HR Divalproex Sodium 500 MG Extended Release Oral Tablet [facility] ([facility]) Diclofenac Sodium 75 MG Delayed Release Oral Tablet [facility] ([facility]) Diclofenac Sodium 0.01 MG/MG Topical Gel [facility] ([facility]) Cyclobenzaprine hydrochloride 10 MG Oral Tablet [facility] ([facility]) Clindamycin 300 MG Oral Capsule [facility] ([facility]) Cephalexin 500 MG Oral Capsule [facility] ([facility]) fluticasone furoate 0.1 MG/ACTUAT / ling nterol 0.025 MG/ACTUAT Dry Powder Inhaler [facility] ([facility]) Amoxicillin 875 MG / Clavulanate 125 MG Oral Tablet [facility] ([facility]) Aleve PETRA ([facility]) Acetaminophen 300 MG / Codeine Phosphate 30 MG Oral Tablet [facility] ([facility])
--- NOTE | 2021-01-19 13:53 | ED PDOC ---
Post-Departure Follow-Up see downtime documentation Lucila Lan MD Jan 19, 2021 13:53
[2021-01-20] MEDS ORDERED: TIZA2TA PO (09:38)
[2021-01-20] MEDS ORDERED: ROPI2TAB3 PO (09:38)
[2021-01-20] MEDS ORDERED: PREG150C PO (09:38)
[2021-01-20] MEDS ORDERED: OSEL75CA2 PO (10:22)
[2021-01-20] MEDS ORDERED: SYNT150T PO (10:22)
[2021-01-20] MEDS ORDERED: ASPI81TA26 PO (10:22)
--- NOTE | 2021-01-20 19:21 | ECGEPIP ---
[facility] - ED Test Date: 2021-01-19 Pat Name: TEDDY GOODWIN Department: Room: - Gender: Female Deck Hand: moise : 1955 Requested By: Lucila Lan Order Number: [id number] Reading MD: George Boyle Measurements Intervals [place] Rate: 91 P: 63 SC: 164 QRS: -18 QRSD: 90 T: 44 QT: 344 QTc: 423 Interpretive Statements Normal sinus rhythm Possible Left atrial enlargement Anterior infarct , age undetermined SIMILAR TO 11/10/20 Electronically Signed on 01-20-2021 19:21:34 EST by George Boyle
== END 2021-01-19 13:50 | disposition home or self-care (01) ==
LOC: M ED 09:17
DX: J11.1 Influenza due to unidentified influenza virus with other respiratory manifestations (principal); I25.10 Atherosclerotic heart disease of native coronary artery without angina pectoris; M06.9 Rheumatoid arthritis, unspecified; Z95.5 Presence of coronary angioplasty implant and graft; Z88.1 Allergy status to other antibiotic agents; Z79.899 Other long term (current) drug therapy

== ENCOUNTER 2021-01-20 05:03 | Inpatient (IN) | payer MEDICARE, MEDICAID ==
[~2021-01-20] VITALS: Ht 167.6 cm; Wt 79.9 kg
[~2021-01-20 05:03] MED LIST changes: +ASPI-569 PO; -ASPI81TAEC PO; +MECL-136 PO; -MECL12.590 PO
--- NOTE | 2021-01-20 06:13 | REPVR ---
PROCEDURE INFORMATION: Exam: XR Chest Exam date and time: 01/20/2021 6:06 AM Age: 65 years old Clinical indication: Other: Hypoxia/cough; Additional info: Hypoxia /cough TECHNIQUE: Imaging protocol: XR of the chest Views: 1 view. COMPARISON: CR Chest, 2 view PA, Lat 11/10/2020 12:31 PM FINDINGS: Lungs: There is bilateral lower lung zone atelectatic changes versus subtle infiltrates. Pleural spaces: Unremarkable. No pleural effusion. No pneumothorax. Heart/Mediastinum: There is a large hiatal hernia. 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 IMPRESSION: 1. Bilateral lower lung zone atelectatic changes versus infiltrates. 2. Large hiatal hernia. Electronically signed by: Reagan Walker On 01/20/2021 06:13:38 AM
[2021-01-20 06:26] LABS: ABG BASE EXCESS 2.4 (-2.0-2.0); ABG O2 SATURATION 94.4 % (95.0-99.0); ABG PARTIAL PRESSURE CO2 53.4 mmHg (35.0-45.0); ABG PARTIAL PRESSURE O2 75.6 mmHg (75.0-100.0); ABG STANDARD HCO3 26.6 MEQ/L (22.0-26.0); ABG TOTAL CO2 30.6 MEQ/L (23.0-31.0); ABG pH (ARTERIAL) 7.352 UNITS (7.350-7.450)
[2021-01-20] MEDS ORDERED: predniSONE 20 MG TAB PO ONE (07:05)
[2021-01-20 07:16] LABS: BASO % 0.2 % (0.0-1.0); EOS # 0.3 10^3/uL (0.0-0.5); EOS % 3.3 % (0.0-3.0); LYMPH % 12.6 % (24.0-44.0); MEAN CORPUSCULAR HEMOGLOBIN 28.6 pg (27.0-33.0); MEAN CORPUSCULAR VOLUME 95.2 fl (80.0-96.0); MONO # 0.9 10^3/uL (0.0-0.8); MONO % 10.5 % (2.0-8.0); PLATELET COUNT, AUTOMATED 231 10^3/uL (150-450); WHITE BLOOD COUNT 8.3 10^3/uL (4.0-10.0)
--- NOTE | 2021-01-20 07:18 | ED PDOC ---
Post-Departure Follow-Up radiology report faxed to Lucila James MD Jan 20, 2021 07:18
[2021-01-20 07:24] LABS: INR 1.07; PROTHROMBIN TIME 14.1 SECONDS (12.5-14.3)
[2021-01-20 07:25] LABS: PARTIAL THROMBOPLASTIN TIME 34.6 SECONDS (24.2-38.5)
[2021-01-20] MEDS: IPRATROPIUM 0.5MG/ALBUTEROL 2.5MG INH SOL UD 3ML (DUONEB) NEB SCH ×6 (07:39→20:00)
[2021-01-20] MEDS ORDERED: ACETAMINOPHEN 500 MG TAB PO ONE (07:40)
[2021-01-20 07:53] LABS: ALBUMIN 3.2 GM/DL (3.2-5.2); ALT/SGPT 15 U/L (12-78); BILIRUBIN,DIRECT 0.2 MG/DL (0.0-0.2); BILIRUBIN,TOTAL 0.3 MG/DL (0.2-1.0); BLOOD UREA NITROGEN 14 MG/DL (7-18); CALCIUM LEVEL 9.1 MG/DL (8.8-10.2); CARBON DIOXIDE LEVEL 32 MEQ/L (21-32); CHLORIDE LEVEL 105 MEQ/L (98-107); CK-MB VALUE MASS 1.6 NG/ML (<3.6); CPK CREATINE PHOSPHOKINASE 56 U/L (26-192); CREATININE FOR GFR 0.58 MG/DL (0.55-1.30); GLOMERULAR FILTRATION RATE > 60.0 (>45); GLUCOSE, FASTING 104 MG/DL (70-100); MB/CK RELATIVE INDEX 2.86 (< OR =4); POTASSIUM SERUM 4.4 MEQ/L (3.5-5.1); SODIUM LEVEL 139 MEQ/L (136-145); TOTAL PROTEIN 6.5 GM/DL (6.4-8.2); TROPONIN I < 0.02 NG/ML (< 0.10)
[2021-01-20] MEDS ORDERED: IBUPROFEN 400MG TAB PO ONE (08:30)
[2021-01-20] MEDS ORDERED: IPRATROPIUM 0.5MG/ALBUTEROL 2.5MG INH SOL UD 3ML (DUONEB) NEB PRN (09:35)
[2021-01-20] MEDS ORDERED: MOM 30ML SUSPENSION UDC PO PRN (09:35)
[2021-01-20] MEDS ORDERED: ACETAMINOPHEN TAB 650MG DOSE (2X325MG) PO PRN (09:35)
[2021-01-20] MEDS ORDERED: PREG150C PO (09:38)
[2021-01-20] MEDS ORDERED: ROPI2TAB3 PO (09:38)
[2021-01-20] MEDS ORDERED: TIZA2TA PO (09:38)
[2021-01-20] MEDS ORDERED: ISOVUE-370 76% 100ML VIAL As Ordered ONE (09:54)
--- NOTE | 2021-01-20 09:57 | HPEPDOC ---
[facility] Medical History & Physical Date of Admission Jan 20, 2021 Date of Service: Jan 20, 2021 History and Physical Chief complaint: Presented to the emergency room with complaints of diffuse body aches History of present illness: Patient is a 65-year-old female who presented to the emergency room complaints of diffuse body aches. Patient presented to the ER yesterday with similar symptoms had reported body aches for about 3 days associated with fatigue, weakness. Patient was noted to be influenza B positive on 01/19. Patient was given Tamiflu and discharge home. Patient reports for body aches, have continued to persist. Upon evaluation in the ER today, patient was noted to be hypoxic and hospitalist services contacted for evaluation. Patient has reported diffuse body aches for the last 3 days. Denies any upper respiratory tract symptoms including runny nose, watery eyes or sore throat. Patient denies any shortness of breath at rest or with exertion. Denies any cough. No chest pain or palpitations. Has not experience any nausea, vomiting, abdominal pain, diarrhea, or discomfort with urination. Last bowel movement was yesterday. Patient has reported recent leg swelling, more so on the right side. Denies any fevers or chills. Reports her appetite has been fairly normal and denies any changes in her weight. Past Medical History: CAD s/p Stent (Hx of MS 2013) HTN DLP COPD / Asthma / Hx of MAC Hypothyroidism RA Neuropathy RLS GERD Past Surgical History: Bilateral knee replacements Bilateral hip replacements Right shoulder surgery Allergies: See below Medications: See below Family History: - Mother with a history of thyroid cancer and maternal grandmother with a history of breast cancer Social History: - Denies the use of illicit drugs; she reports social use of alcohol; Reports that she quit smoking 8 months ago but was a smoker of 40 years at one [address] - Denies recent travel or sick contacts - Lives alone - Occupation; currently is retired, used to work at [employer] Review of Systems: 10 point review of systems complete, all negative otherwise stated in HPI Physical exam: - Vitals: BP [149/56], HR [111], RR [22], Sat [94%NC2L], Temp [98.1F] - General: Lying in bed, No acute distress, Speaking in full sentences, AAOx3 - HEENT: NC, AT, PERRLA - CVS: Tachycardic, +S1S2 - Lungs: Fair air entry bilaterally, No appreciable rhonchi; faint wheezing appreciated bilaterally, mild crepitus left lung base - Abdomen: Soft, Non-distended, Non-tender - Extremities: RLE > LLE, no definitive pitting edema, No calf tenderness - Neuro: No focal motor or sensory deficit - Skin: No visible rashes Labs: See below Imaging: CXR 01/20: 1. Bilateral lower lung zone atelectatic changes versus infiltrates. 2. Large hiatal hernia. EKG: See below Assessment and Plan: Acute Hypoxic Respiratory failure - possibly 2/2 acute exacerbation of COPD - possibly 2/2 Influenza, possibly 2/2 PE - Presented to the ER with diffuse body aches for 3 days - Patient is requiring 2 L of supplemental oxygen to maintain saturations - Physical with faint crackles at lung bases, diffuse but faint wheezing - No leukocytosis or lactic acidosis - Respiratory panel 01/20: Negative; however, Influenza B 01/19: Positive - Will check BNP / Procalcitonin / Blood cultures - Will get CT angiography of chest - Will c/w Prednisone - Will c/w inhaled therapy as ordered - Will c/w Tamiflu - Will start Acapella / Incentive spirometry / Mucinex RLE > LLE - Will get Duplex US of RLE CAD s/p Stent (Hx of [place] 2013) - Denies any CP, palpitations or SOB - EKG reviewed; similar to prior - no ischemic changes noted - Troponin negative - c/w ASA, Rosuvastatin HTN - BP well controlled - Currently not on medications DLP - c/w Rosuvastatin COPD / Asthma / Hx of MAC - See above Hypothyroidism - c/w Levothyroxine RA - c/w Tylenol PRN Neuropathy - c/w Gabapentin - Will stop Pregabalin RLS - c/w Ropinirole GERD / Hiatal hernia - c/w Protonix DVT prophylaxis - Will start Lovenox Vital Signs Vital Signs Date Time Temp Pulse Resp B/P (MAP) Pulse Ox O2 Delivery O2 Flow Rate FiO2 01/20/21 09:00 111 22 149/56 (87) 94 Nasal Cannula 2.0 01/20/21 05:06 98.1 Laboratory Data Labs 24H Laboratory Tests 2 01/20/21 06:16: Immature Granulocyte % (Auto) 0.4, Neutrophils (%) (Auto) 73.0H, Lymphocytes (%) (Auto) 12.6L, Monocytes (%) (Auto) 10.5H, Eosinophils (%) (Auto) 3.3H, Basophils (%) (Auto) 0.2, Neutrophils # (Auto) 6.0, Lymphocytes # (Auto) 1.0L, Monocytes # (Auto) 0.9H, Eosinophils # (Auto) 0.3, Basophils # (Auto) 0.0, Nucleated Red Blood Cells % (auto) 0.0, Prothrombin Time 14.1H, Prothromb Time International Ratio 1.07, Activated Partial Thromboplast Time 34.6, Anion Gap 2L, Glomerular Filtration Rate > 60.0, Lactic Acid Level 0.7, Calcium Level 9.1, Total Bilirubin 0.3, Direct Bilirubin 0.2, Aspartate Amino Transf (AST/SGOT) 13, Alanine Aminotransferase (ALT/SGPT) 15, Alkaline Phosphatase 104, Total Creatine Kinase 56, Creatine Kinase MB 1.6, Creatine Kinase MB Relative Index 2.86, Troponin I < 0.02, C-Reactive Protein, Quantitative 6.30H, Total Protein 6.5, Albumin 3.2, Albumin/Globulin Ratio 1.0L 01/20/21 06:20: Blood Gas Bicarbonate Standard 26.6H, Arterial Blood pH 7.352, Arterial Blood Partial Pressure CO2 53.4H, Arterial Blood Partial Pressure O2 75.6, Arterial Blood Total CO2 30.6, Arterial Blood HCO3 29.0H, Arterial Blood Base Excess 2 .4H, Arterial Blood Oxygen Saturation 94.4L CBC/BMP Laboratory Tests 01/20/21 06:16 Microbiology Microbiology 01/20/21 Blood Culture, Received Pending 01/20/21 Blood Culture, Received Pending 01/20/21 Respiratory Virus Panel (PCR) ([facility]) - Final, Complete Home Medications Scheduled Aspirin (Aspirin EC) 81 Mg Tablet.dr, 81 MG PO DAILY Fluticasone/Vilanterol (Breo Ellipta 200-25 Mcg INH) 1 Inh Inh, 1 PUFF INH DAILY Gabapentin (Gabapentin) 100 Mg Capsule, 100 MG PO TID Levothyroxine Sodium (Synthroid) 150 Mcg Tablet, 150 MCG PO DAILY Mirabegron (Myrbetriq) 50 Mg Tab.er.24h, 50 MG PO QHS Oseltamivir Phosphate (Oseltamivir Phosphate) 75 Mg Capsule, 75 MG PO BID Pantoprazole Sodium (Pantoprazole Sodium) 20 Mg Tab, 20 MG PO DAILY Pregabalin (Pregabalin) 150 Mg Capsule, 150 MG PO BID Ropinirole HCl (Ropinirole HCl) 2 Mg Tablet, 2 MG PO BID Rosuvastatin Calcium (Rosuvastatin Calcium) 10 Mg Tablet, 10 MG PO DAILY Tizanidine HCl (Tizanidine HCl) 2 Mg Tablet, 2 MG PO QHS Umeclidinium [place] (Incruse Ellipta) 62.5 Mcg/Inh Inh, 1 PUFF INH DAILY Scheduled PRN Albuterol Sulfate (Proair Hfa) 108 Mcg/Act Aer, 2 PUFF INH QID PRN for SHORTNESS OF BREATH Allergies Coded Allergies: doxycycline (Verified Allergy, Intermediate, HIVES, 01/20/21) hydroxyzine (Verified Allergy, Intermediate, HIVES, 01/20/21) TAPE (Verified Adverse Reaction, Intermediate, bandaids- red, swollen, 01/20/21) KARLA MAK MD Jan 20, 2021 09:57
--- NOTE | 2021-01-20 10:13 | REP ---
INDICATION: RLE edema COMPARISON: 07/05/2020. TECHNIQUE: Real time compression and duplex Doppler interrogation of the right lower extremity deep venous system is performed. FINDINGS: The right common femoral, superficial femoral and popliteal veins are fully compressible with transducer pressure and demonstrate normal spontaneous and phasic flow, without evidence of deep venous thrombosis. IMPRESSION: No evidence of deep venous thrombosis of the right lower extremity femoral popliteal venous system. <Electronically signed by Romeo Tovar > 01/20/21 1010
[2021-01-20] MEDS ORDERED: OSEL75CA2 PO (10:22)
[2021-01-20] MEDS ORDERED: SYNT150T PO (10:22)
[2021-01-20] MEDS ORDERED: ASPI81TA26 PO (10:22)
[2021-01-20 10:35] LABS: NT-PRO BNP 1289 PG/ML (<125)
[2021-01-20 10:55] VITALS: BP 138/96
--- NOTE | 2021-01-20 11:01 | REP ---
INDICATION: Hypoxia. COMPARISON: 07/05/2020. TECHNIQUE: CT angiogram chest performed following the intravenous administration of 100 cc of Isovue 370. Sagittal and coronal reconstruction images are performed. FINDINGS: Lungs: There is a chronic stable reticulonodular interstitial pattern bilaterally. Stable 5 mm nodule right lower lobe on image 56.. There is no superimposed acute infiltrate identified. Mediastinum: There is mild stable precarinal adenopathy. Pulmonary arteries: No evidence of pulmonary embolism. [place]: A stable mildly enlarged left infrahilar lymph node has a short axis dimension of 1.3 cm. A stable 1.3 cm lymph node is seen in the right hilum. Axilla: There are multiple stable subcentimeter nonenlarged axillary lymph nodes bilaterally. Pleura: No effusion. Heart: Mild cardiomegaly. Thoracic aorta: No aneurysm or dissection. Upper abdominal structures: There is a large hiatal hernia. Visualized osseous structures: There are degenerative changes of the spine without compression deformity. Right shoulder prosthesis. IMPRESSION: No CT evidence of pulmonary embolism. No infiltrate seen. Chronic reticulonodular interstitial pattern throughout both lungs unchanged. Stable mild hilar and mediastinal adenopathy. Large hiatal hernia. <Electronically signed by Romeo Tovar > 01/20/21 2127
[2021-01-20] MEDS: guaiFENesin ER 600 MG TAB PO SCH ×2 (11:58→20:37)
[2021-01-20] MEDS: ACETAMINOPH W/CODEINE #3 TAB UD PO PRN ×3 (11:58→22:39)
[2021-01-20] MEDS: ASPIRIN 81 MG ENTERIC TAB PO SCH (11:58)
[2021-01-20] MEDS: rOPINIRole 1MG TAB PO SCH ×2 (11:58→20:37)
[2021-01-20] MEDS: PANTOPRAZOLE 20 MG TAB PO SCH (11:58)
[2021-01-20] MEDS: DOCUSATE SODIUM 100MG CAPSULE PO SCH ×2 (11:58→20:37)
[2021-01-20] MEDS: OSELTAMIVIR PHOSPHATE 75 MG CAP (TAMIFLU) PO SCH ×2 (11:58→20:37)
[2021-01-20] MEDS: LEVOTHYROXINE 150MCG TABLET (0.15MG) PO SCH (11:59)
[2021-01-20] MEDS: ROSUVASTATIN 10 MG TAB (CRESTOR) PO SCH (11:59)
[2021-01-20 13:26] VITALS: BP 146/74
[2021-01-20] MEDS: GABAPENTIN 100 MG CAP PO SCH ×2 (16:40→20:38)
--- NOTE | 2021-01-20 20:02 | ECGEPIP ---
[facility] - ED Test Date: 2021-01-20 Pat Name: TEDDY GOODWIN Department: Room: - Gender: Female Clinical Exercise Physiologist: cami CARLSONB: 1955 Requested By: CITLALLI WYNN Order Number: [id number] Reading MD: George Boyle Measurements Intervals [place] Rate: 89 P: 62 CT: 168 QRS: -20 QRSD: 90 T: 47 QT: 350 QTc: 425 Interpretive Statements Normal sinus rhythm Possible Left atrial enlargement Minimal voltage criteria for LVH, may be normal variant ( Femi product ) Inferior infarct , age undetermined Anterior infarct , age undetermined SIMILAR TO 01/19/21 Electronically Signed on 01-20-2021 20:02:08 EST by George Boyle
[2021-01-20] MEDS ORDERED: ADVAIR HFA 230/21MCG INHALER INH SCH (21:00)
[2021-01-20] MEDS ORDERED: ENOXAPARIN 40MG/0.4ML SYRINGE (J1650 PER 10MG) SC SCH (21:00)
[2021-01-20] MEDS ORDERED: tiZANidine 4 MG TAB PO SCH (21:00)
[2021-01-20 22:00] VITALS: BP 122/68
[2021-01-21] MEDS: IPRATROPIUM 0.5MG/ALBUTEROL 2.5MG INH SOL UD 3ML (DUONEB) NEB SCH ×3 (00:19→12:58)
[2021-01-21] MEDS: ACETAMINOPH W/CODEINE #3 TAB UD PO PRN ×3 (03:52→15:04)
[2021-01-21] MEDS: LEVOTHYROXINE 150MCG TABLET (0.15MG) PO SCH (05:45)
[2021-01-21 06:00] VITALS: BP 119/68
[2021-01-21 06:24] LABS: BASO % 0.4 % (0.0-1.0); EOS # 0.1 10^3/uL (0.0-0.5); EOS % 0.8 % (0.0-3.0); HEMATOCRIT 37.5 % (36.0-47.0); HEMOGLOBIN 11.5 g/dl (12.0-15.5); LYMPH # 1.1 10^3/uL (1.5-5.0); LYMPH % 15.5 % (24.0-44.0); MEAN CORPUSCULAR HEMOGLOBIN 28.9 pg (27.0-33.0); MEAN CORPUSCULAR HGB CONC 30.7 g/dl (32.0-36.5); MEAN CORPUSCULAR VOLUME 94.2 fl (80.0-96.0); MONO # 0.8 10^3/uL (0.0-0.8); MONO % 11.1 % (2.0-8.0); NEUTROPHILS # 5.3 10^3/uL (1.5-8.5); NEUTROPHILS % 71.9 % (36.0-66.0); PLATELET COUNT, AUTOMATED 229 10^3/uL (150-450); RED BLOOD COUNT 3.98 10^6/uL (4.00-5.40); WHITE BLOOD COUNT 7.3 10^3/uL (4.0-10.0)
[2021-01-21 06:47] LABS: BLOOD UREA NITROGEN 13 MG/DL (7-18); CARBON DIOXIDE LEVEL 29 MEQ/L (21-32); CHLORIDE LEVEL 105 MEQ/L (98-107); CREATININE FOR GFR 0.62 MG/DL (0.55-1.30); GLOMERULAR FILTRATION RATE > 60.0 (>45); GLUCOSE, FASTING 141 MG/DL (70-100); MAGNESIUM LEVEL 1.8 MG/DL (1.8-2.4); POTASSIUM SERUM 3.9 MEQ/L (3.5-5.1); SODIUM LEVEL 141 MEQ/L (136-145)
[2021-01-21] MEDS: OSELTAMIVIR PHOSPHATE 75 MG CAP (TAMIFLU) PO SCH (08:14)
[2021-01-21] MEDS: guaiFENesin ER 600 MG TAB PO SCH (08:14)
[2021-01-21] MEDS: ROSUVASTATIN 10 MG TAB (CRESTOR) PO SCH (08:14)
[2021-01-21] MEDS: DOCUSATE SODIUM 100MG CAPSULE PO SCH (08:14)
[2021-01-21] MEDS: GABAPENTIN 100 MG CAP PO SCH (08:14)
[2021-01-21] MEDS: ASPIRIN 81 MG ENTERIC TAB PO SCH (08:15)
[2021-01-21] MEDS: rOPINIRole 1MG TAB PO SCH (08:15)
[2021-01-21] MEDS: PANTOPRAZOLE 20 MG TAB PO SCH (08:15)
[2021-01-21] MEDS ORDERED: PRED10TA2 PO (08:39)
[2021-01-21] MEDS ORDERED: MUCI600T31 PO (08:39)
[2021-01-21] MEDS ORDERED: ACET1TAB16 PO (08:40)
--- NOTE | 2021-01-21 08:50 | DS.PDOC ---
Discharge Summary General Date of Admission Jan 20, 2021 at 09:35 Date of Discharge 01/21/2021 Discharge Summary PROCEDURES PERFORMED DURING STAY: [None]. ADMITTING DIAGNOSES / DISCHARGE DIAGNOSES: s/p Hypoxia - possibly 2/2 acute exacerbation of COPD - possibly 2/2 Influenza B Myalgia - likely 2/2 influenza RLE > LLE CAD s/p Stent (Hx of [place] 2013) HTN DLP COPD / Asthma / Hx of MAC Hypothyroidism RA Neuropathy RLS GERD / Hiatal hernia DVT prophylaxis COMPLICATIONS/CHIEF COMPLAINT: Muscle aches HISTORY OF PRESENT ILLNESS: Patient is a 65-year-old female who presented to the emergency room complaints of diffuse body aches. Patient presented to the ER yesterday with similar symptoms had reported body aches for about 3 days associated with fatigue, weakness. Patient was noted to be influenza B positive on 01/19. Patient was given Tamiflu and discharge home. Patient reports for body aches, have continued to persist. Upon evaluation in the ER on 01/20, patient was noted to be hypoxic. Patient was admitted to the hospital service for further evaluation and treatment of suspected COPD exacerbation. Patient was seen and examined at the bedside. Reports that her breathing is doing relatively fine. Patient was up and ambulated without supplemental oxygen and her saturations have not dropped below 90%. Patient denies any shortness of breath, any significant cough. No nausea, vomiting, abdominal pain, diarrhea, or discomfort with urination. Patient reports her muscle aches have had a slight improvement. HOSPITAL COURSE: s/p Hypoxia - possibly 2/2 acute exacerbation of COPD - possibly 2/2 Influenza B - Patient reports improves improvement of body aches - Patient was able to ambulate without any supplemental oxygen; and maintain saturation greater than 90% - No leukocytosis / No lactic acidosis / Negative PCT - Blood cultures 01/20: Negative at 24 hours - Respiratory panel 01/20: Negative; however, Influenza B 01/19: Positive - Imaging noted below - c/w inhaled therapy as ordered - c/w Tamiflu on discharge - c/w Acapella / Incentive spirometry / Mucinex - c/w Prednisone; will provide taper on discharge - Will have outpatient follow-up with primary care provider, and pulmonology within the next 7 days Myalgia - likely 2/2 influenza - c/w Tylenol with Codeine PRN RLE > LLE - Duplex US negative CAD s/p Stent (Hx of DC 2013) - Denies any CP, palpitations or SOB - EKG reviewed; similar to prior - no ischemic changes noted - Troponin negative - c/w ASA, Rosuvastatin HTN - BP well controlled - Currently not on medications DLP - c/w Rosuvastatin COPD / Asthma / Hx of MAC - See above Hypothyroidism - c/w Levothyroxine RA - c/w Tylenol PRN Neuropathy - c/w Gabapentin - Will discontinue Pregabalin RLS - c/w Ropinirole GERD / Hiatal hernia - c/w Protonix DVT prophylaxis - c/w Lovenox DISCHARGE MEDICATIONS: Please see below. ALLERGIES: Please see below. PHYSICAL EXAMINATION ON DISCHARGE: Vitals (See below) General: Lying in bed, appears comfortable, AAOx3 HEENT: NC, AT CVS: +S1S2 Lungs: Fair air entry b/l, auscultation is without any wheezing, crackles or rhonchi Abdomen: Soft, ND, NT Extremities: RLE > LLE, no appreciated edema, - Calf tenderness LABORATORY DATA: Please see below. IMAGING: CXR 01/20: 1. Bilateral lower lung zone atelectatic changes versus infiltrates. 2. Large hiatal hernia. Duplex US 01/20: No evidence of deep venous thrombosis of the right lower extremity femoral popliteal venous system. CTA chest 01/20: No CT evidence of pulmonary embolism. No infiltrate seen. Chronic reticulonodular interstitial pattern throughout both lungs unchanged. Stable mild hilar and mediastinal adenopathy. Large hiatal hernia. ACTIVITY: [As tolerated]. DISCHARGE PLAN: Follow-up with primary care provider within the next 7 days Follow-up with pulmonology within the next 7 days Remain compliant with treatment plan and medications Return to the ER if you experience any problems DISPOSITION: Home with services DISCHARGE CONDITION: [Stable]. TIME SPENT ON DISCHARGE: 35 minutes. Vital Signs/I&Os Vital Signs Date Time Temp Pulse Resp B/P (MAP) Pulse Ox O2 Delivery O2 Flow Rate FiO2 01/21/21 08:16 20 01/21/21 06:00 98.0 89 119/68 (85) 92 Nasal Cannula 2.0 I&O- Last 24 Hours up to 6 AM 01/21/21 06:00 Intake Total 780 ml Output Total 950 ml Balance -170 ml Laboratory Data Labs 24H Laboratory Tests 2 01/20/21 11:08: Urine Color YELLOW, Urine Appearance CLEAR, Urine pH 6.0, Urine Specific [place] 1.018, Urine Protein NEGATIVE, Urine Glucose (UA) NEGATIVE, Urine Ketones TRACEH, Urine Blood NEGATIVE, Urine Nitrite NEGATIVE, Urine Bilirubin NEGATIVE, Urine Urobilinogen 0.2, Urine Leukocyte Esterase NEGATIVE, Urine WBC (Auto) 0, Urine RBC (Auto) 2, Urine Hyaline Casts (Auto) 0, Urine Bacteria (Auto) NEGATIVE, Urine Squamous Epithelial Cells 0, Urine Sperm (Auto) 01/21/21 05:41: Immature Granulocyte % (Auto) 0.3, Neutrophils (%) (Auto) 71.9H, Lymphocytes (%) (Auto) 15.5L, Monocytes (%) (Auto) 11.1H, Eosinophils (%) (Auto) 0.8, Basophils (%) (Auto) 0.4, Neutrophils # (Auto) 5.3, Lymphocytes # (Auto) 1.1L, Monocytes # (Auto) 0.8, Eosinophils # (Auto) 0.1, Basophils # (Auto) 0.0, Nucleated Red Blood Cells % (auto) 0.0, Anion Gap 7L, Glomerular Filtration Rate > 60.0, Calcium Level 9.0, Magnesium Level 1.8 CBC/BMP Laboratory Tests 01/21/21 05:41 Microbiology Microbiology 01/20/21 Blood Culture - Preliminary, Resulted No growth after 24 hours . All specim... 01/20/21 Blood Culture - Preliminary, Resulted No growth after 24 hours . All specim... 01/20/21 Respiratory Virus Panel (PCR) ([facility]) - Final, Complete Discharge Medications Scheduled Aspirin (Aspirin EC) 81 Mg Tablet.dr, 81 MG PO DAILY, (Reported) Fluticasone/Vilanterol (Breo Ellipta 200-25 Mcg INH) 1 Inh Inh, 1 PUFF INH DAILY, (Reported) Gabapentin (Gabapentin) 100 Mg Capsule, 100 MG PO TID, (Reported) Guaifenesin (Mucinex) 600 Mg Tab.er.12h, 1,200 MG PO BID Levothyroxine Sodium (Synthroid) 150 Mcg Tablet, 150 MCG PO DAILY, (Reported) Mirabegron (Myrbetriq) 50 Mg Tab.er.24h, 50 MG PO QHS, (Reported) Oseltamivir Phosphate (Oseltamivir Phosphate) 75 Mg Capsule, 75 MG PO BID, (Reported) Pantoprazole Sodium (Pantoprazole Sodium) 20 Mg Tab, 20 MG PO DAILY, (Reported) Prednisone (Prednisone) 10 Mg Tablet, 10 MG PO TAPER Take 4 tabs daily x 3 days, then 3 tabs daily x 3 days, then 2 tabs daily x 3 days, then 1 tab daily x 3 days and stop Ropinirole HCl (Ropinirole HCl) 2 Mg Tablet, 2 MG PO BID, (Reported) Rosuvastatin Calcium (Rosuvastatin Calcium) 10 Mg Tablet, 10 MG PO DAILY, (Reported) Tizanidine HCl (Tizanidine HCl) 2 Mg Tablet, 2 MG PO QHS, (Reported) Umeclidinium [place] (Incruse Ellipta) 62.5 Mcg/Inh Inh, 1 PUFF INH DAILY, (Reported) Scheduled PRN Acetaminophen with Codeine (Acetaminophen-Cod #3 Tablet) 1 Each Tablet, 1 EA PO Q8HP PRN for MODERATE/SEVERE PAIN (PS 5-10) Albuterol Sulfate (Proair Hfa) 108 Mcg/Act Aer, 2 PUFF INH QID PRN for SHORTNESS OF BREATH, (Reported) Allergies Coded Allergies: doxycycline (Verified Allergy, Intermediate, HIVES, 01/20/21) hydroxyzine (Verified Allergy, Intermediate, HIVES, 01/20/21) TAPE (Verified Adverse Reaction, Intermediate, bandaids- red, swollen, 01/20/21) KARLA MAK MD Jan 21, 2021 08:50
[2021-01-21] MEDS ORDERED: predniSONE 20 MG TAB PO SCH (09:00)
[2021-01-21 14:00] VITALS: BP 119/69
== END 2021-01-21 15:12 | disposition home or self-care (01) | DRG 194 ==
LOC: M ED 05:03 → M ED INP 09:35 → M MSPAV 10:49
PROVIDERS: ADMIT Internal Medicine; ATTEND Internal Medicine
DX: J10.1 Influenza due to other identified influenza virus with other respiratory manifestations (principal); J44.1 Chronic obstructive pulmonary disease with (acute) exacerbation; R09.02 Hypoxemia; M79.10 Myalgia, unspecified site; K21.9 Gastro-esophageal reflux disease without esophagitis; K44.9 Diaphragmatic hernia without obstruction or gangrene; G25.81 Restless legs syndrome; I10 Essential (primary) hypertension; I25.10 Atherosclerotic heart disease of native coronary artery without angina pectoris; Z95.2 Presence of prosthetic heart valve; G62.9 Polyneuropathy, unspecified; J45.909 Unspecified asthma, uncomplicated; E03.9 Hypothyroidism, unspecified; M06.9 Rheumatoid arthritis, unspecified; Z79.82 Long term (current) use of aspirin; Z79.899 Other long term (current) drug therapy; Z88.8 Allergy status to other drugs, medicaments and biological substances; Z96.653 Presence of artificial knee joint, bilateral

== ENCOUNTER → 2021-02-05 | Outpatient (CLI) | payer MEDICARE ==
[~2021-02-05] MED LIST changes: +OSEL75CA2 PO; +PREG150C PO; +ROPI2TAB3 PO; +SYNT150T PO; +TIZA2TA PO
--- NOTE | 2021-02-06 23:19 | ECWPNPC ---
PATIENT NAME: TEDDY GOODWIN : 1955 GENDER: FEMALE VISIT DATE: 02/05/2021 DISCHARGE DATE: 02/05/21 151 VISIT LOCKED DATE TIME: PHYSICIAN: CURTIS SHAW RESOURCE: CURTIS SHAW REASON FOR APPOINTMENT 1. FIBROMYALGIA HISTORY OF PRESENT ILLNESS PAIN CENTER INTAKE QUESTIONS: 65-YEAR-OLD FEMALE IN FOR CHRONIC PAIN FOLLOW-UP PATIENT FEELS HER LYRICA IS MAKING HER EYES BLURRY BUT DOES ADMIT THAT IT HAS BEEN BENEFICIAL. SHE RATES HER PAIN CURRENTLY AT A 7 OUT OF 10. GENERAL: -. FALL RISK SCREENING: SCREENING ONE FALL WITH INJURY REPORTED IN THE LAST YEAR. PATIENT DID NOT SEEK MEDICAL TREATMENT.. PAIN SCREENING: PATIENT HAS A COMPLAINT OF ACUTE OR CHRONIC PAIN :YES LOCATION OF PAIN:LOW BACK INTENSITY OF PAIN (SCALE OF 1 TO 10):7 WHAT DOES YOUR PAIN FEEL LIKE:ACHING, INTERMITTENT DURATION:INTERMITTENT PAIN IS INCREASED BY:ACTIVITIES, PROLONGED STANDING PAIN IS DECREASED BY:USE OF PAIN MEDICATIONS NURSING NOTE: -. CURRENT MEDICATIONS TAKING SULFASALAZINE 500 MG TABLET 2 TABLET ORALLY BID TAKING ASPIRIN 81 81 MG TABLET DELAYED RELEASE 1 TABLET ORALLY ONCE A DAY TAKING ROPINIROLE HCL 1 MG TABLET 1 TABLET ORALLY 4 DAILY TAKING MELOXICAM 7.5 MG TABLET 1 TABLET ORALLY TWICE A DAY TAKING MYRBETRIQ 50 MG TABLET EXTENDED RELEASE 24 HOUR 1 TABLET ORALLY ONCE A DAY TAKING LEVOTHYROXINE SODIUM 137MCG TABLET 1 TABLET EVERY MORNING ON AN EMPTY STOMACH ORALLY ONCE A DAY TAKING PANTOPRAZOLE SODIUM 40 MG TABLET DELAYED RELEASE 1 TAB(S) ORALLY ONCE A DAY TAKING CALCIUM 600 MG TABLET 1 TABLET WITH MEALS ORALLY TWICE A DAY TAKING MULTIVITAMIN WOMEN 50+ - TABLET DIRECTED ORALLY TAKING VITAMIN B12 1000 MCG TABLET EXTENDED RELEASE TAKES 2500 MCG 1 TABLET ORALLY ONCE A DAY TAKING CO Q 10 100 MG CAPSULE 1 CAPSULE WITH A MEAL ORALLY ONCE A DAY TAKING SLEEP AID 25 MG TABLET 2 TABLET AT BEDTIME NEEDED ORALLY ONCE A DAY TAKING INCRUSE ELLIPTA 62.5 MCG/INH AEROSOL POWDER BREATH ACTIVATED INHALE 1 PUFF PO DAILY INHALATION TAKING ESTRADIOL 0.1 MG/GM CREAM 1 GM VAGINAL TWO TIMES A WEEK TAKING LYRICA 150 MG CAPSULE 1 CAPSULE ORALLY TWICE DAILY TAKING TIZANIDINE HCL 2 MG TABLET 1 TABLET NEEDED ORALLY THREE TIMES A DAY NOT-TAKING HYDROXYZINE HCL 10 MG TABLET TK 1 OR 2 TS PO Q 6 H NEEDED FOR PANIC ORAL NOT-TAKING FUROSEMIDE 20 MG TABLET 1 TABLET ORALLY ONCE A DAY NOT-TAKING GABAPENTIN 100 MG CAPSULE 1 CAPSULE ORALLY ONCE A DAY UNKNOWN PREMARIN 0.625 MG/GM CREAM 1 GM VAGINAL 2XWK UNKNOWN VITAMIN D2 50 MCG (1999 UT) TABLET 03096 UNITS1 TABLET ORALLY ONCE WEEKLY UNKNOWN PREDNISONE 10 MG TABLET 2 TABLETS DAILY FOR 3 DAYS, 1 TABLET DAILY FOR 3 DAYS, 1/2 TAB DAILY FOR 3 DAYS THEN STOP PRN FLARE ORALLY ONCE A DAY UNKNOWN LISINOPRIL 2.5 2.5 MG TABLET 1 TAB(S) ORAL ONCE A DAY UNKNOWN MULTIVITAMINS OTC TABLET 1 TAB(S) ORALLY ONCE A DAY UNKNOWN REQUIP 0.5 MG TABLET 1 TAB(S) ORALLY ONCE A DAY UNKNOWN VITAMIN C 500 MG TABLET 1 TAB(S) ORALLY ONCE A DAY UNKNOWN VITAMIN C 1000 MG TABLET 1 TABLET ORALLY ONCE A DAY UNKNOWN PROAIR HFA 108 (90 BASE) MCG/ACT AEROSOL SOLUTION INHALE 2 PUFFS PO QID PRN INHALATION UNKNOWN BREO ELLIPTA 200-25 MCG/INH AEROSOL POWDER BREATH ACTIVATED INHALE ONE PUFF PO EVERY DAY INHALATION UNKNOWN PANTOPRAZOLE SODIUM 20 MG TABLET DELAYED RELEASE 1 TAB(S) P.O. ONCE A DAY UNKNOWN FERROUS SULFATE 325 MG CAPSULE ORALLY DAILY UNKNOWN LEVOTHYROXINE SODIUM 150 MCG TABLET 1 TABLET IN THE MORNING ON AN EMPTY STOMACH ORALLY ONCE A DAY UNKNOWN ACETAMINOPHEN-CODEINE #3 300-30 MG TABLET 1 TABLET NEEDED ORALLY EVERY 12 HRS NEEDED FOR PAIN UNKNOWN CLINDAMYCIN HCL 300 MG CAPSULE 2 CAPSULES ORALLY EVERY 8 HRS UNKNOWN CARVEDILOL 6.25 MG TABLET TAKE 1 TABLET BY MOUTH TWICE A DAY ORAL UNKNOWN ATORVASTATIN CALCIUM 40 MG TABLET TK 1 T PO D ORAL UNKNOWN DULOXETINE HCL 60 MG CAPSULE DELAYED RELEASE PARTICLES TK 1 C PO QD ORAL UNKNOWN LEVOTHYROXINE SODIUM 112 MCG TABLET 1 TABLET EVERY MORNING ON AN EMPTY STOMACH ORALLY ONCE A DAY UNKNOWN IPRATROPIUM-ALBUTEROL 0.5-2.5 (3) MG/3ML SOLUTION INHALATION UNKNOWN AZELASTINE HCL 0.1 % SOLUTION U 2 SPRAYS IEN BID NASAL UNKNOWN ARIPIPRAZOLE 5 MG TABLET TK 1 T PO QD ORAL UNKNOWN DIVALPROEX SODIUM ER 500 MG TABLET EXTENDED RELEASE 24 HOUR TK 1 T PO QD ORAL UNKNOWN HYDROCODONE-ACETAMINOPHEN 5-325 MG TABLET (SCHEDULE II DRUG) ORAL UNKNOWN TRAZODONE HCL 100 MG TABLET TK 1 T PO HS ORAL UNKNOWN ROSUVASTATIN CALCIUM 10 MG TABLET TK 1 T PO QD ORAL UNKNOWN ACETAMINOPHEN 500 MG TABLET 2 TABLET NEEDED ORALLY EVERY 12 HRS NEEDED FOR PAIN UNKNOWN TIZANIDINE HCL 2 MG TABLET 1 TABLET NEEDED ORALLY AT BEDTIME UNKNOWN ABILIFY 5 MG TABLET 1 TAB(S) P.O. ONCE A DAY UNKNOWN ACETAMINOPHEN-CODEINE #4 300-60 MG TABLET 1 TAB(S) P.O. NEEDED UNKNOWN AMITRIPTYLINE HCL 25 MG TABLET 1 TAB(S) P.O. ONCE A DAY UNKNOWN ASPIRIN 325 MG TABLET 1 TABLET ORALLY ONCE A DAY UNKNOWN COREG 3.125MG TABLET 1 TAB(S) ORAL TWICE A DAY UNKNOWN DEPAKOTE ER 500 MG TABLET EXTENDED RELEASE 24 HOUR 1 TAB(S) ORALLY THREE TIMES A DAY UNKNOWN LASIX 20 MG TABLET 1 TABLET ORALLY ONCE A DAY UNKNOWN LIPITOR 40 MG TABLET 1 TABLET ORALLY ONCE A DAY UNKNOWN PAXIL 30 MG TABLET 1 TAB(S) ORALLY ONCE A DAY UNKNOWN PLAVIX 75 MG TABLET 1 TABLET ORALLY ONCE A DAY UNKNOWN ALEVE 220 MG TABLET 1 TABLET WITH FOOD OR MILK NEEDED ORALLY EVERY 12 HRS UNKNOWN ROPINIROLE HCL 1 MG TABLET TK 1 T PO HS ORAL UNKNOWN MYRBETRIQ 50 MG TABLET EXTENDED RELEASE 24 HOUR TK 1 T PO EVERY DAY ORAL MEDICATION LIST REVIEWED AND RECONCILED WITH THE PATIENT PAST MEDICAL HISTORY RA HYPOTHYROIDISM RLS DEPRESSION AMI, 02/2011 HTN CAD HIGH CHOLESTEROL GERD POSTMENOPAUSE LYMPH NODES ABDOMEN AND LUNG PNEUMONIA- RECENT DIAGNOSIS OF DOUBLE PNEUMONIA ALLERGIES DOXYCYCLINE HYCLATE: RASH - ALLERGY PERMETHRIN: RASH - ALLERGY HYDROXYZINE HCL: RASH - ALLERGY SURGICAL HISTORY IFEANYI HIP REPLACEMENTS RIGHT SHOULDER REPLACEMENT HYSTERECTOMY, PARTIAL STATES FOR CERVIX CANCER 1980 CARDIAC STENT X 1 02/2011 COLONOSCOPY 2013 TONSILLECTOMY LEFT KNEE REPLACEMENT 10/04/2018 SOCIAL HISTORY GENERAL: TOBACCO USE ARE YOU A:FORMER SMOKER QUIT SIX MONTHS AGO., FORMER SMOKER HOW LONG HAS IT BEEN SINCE YOU LAST SMOKED?6-12 MONTHS LATEX QUESTIONNAIRE LATEX ALLERGY : HAVE YOU EVER DEVELOPED ANY TYPE OF REACTION AFTER HANDLING LATEX PRODUCTS SUCH RUBBER GLOVES, CONDOMS, DIAPHRAGMS, BALLOONS, SOCKS, OR UNDERWEAR?NO LATEX ALLERGY : HAVE YOU EVER DEVELOPED ANY TYPE OF REACTION DURING OR AFTER DENTAL APPOINTMENT, VAGINAL/RECTAL EXAMINATION, SURGICAL PROCEDURE, OR ANY OTHER EXPOSURE?NO LATEX RISK : HAVE YOU EVER HAD ANY DIFFICULTY BREATHING OR HIVES AFTER EATING OR HANDLING ANY FRUITS, OR VEGETABLES; SUCH KIWI, BANANAS, STONE FRUITS, OR CHESTNUTSNO LATEX RISK : DO YOU HAVE A PREVIOUS PERSONAL HISTORY OF MORE THAN NINE SURGERIES, SPINA BIFIDA, OR REPEATED CATHERIZATIONS? NO LATEX RISK : ARE YOU FREQUENTLY EXPOSED TO LATEX PRODUCTS IN YOUR OCCUPATION?NO DATE ASKED : 02/05/2021 ALCOHOL USE: NO. LUNG CANCER SCREENING SMOKING STATUS:FORMER SMOKER BMI CARE GOAL FOLLOW-UP ABOVE NORMAL BMI FOLLOW-UPGIVING ENCOURAGEMENT TO EXERCISE ALCOHOL SCREENING DID YOU HAVE A DRINK CONTAINING ALCOHOL IN THE PAST YEAR?YES HOW OFTEN DID YOU HAVE SIX OR MORE DRINKS ON ONE OCCASION IN THE PAST YEAR?NEVER (0 POINTS) HOW MANY DRINKS DID YOU HAVE ON A TYPICAL DAY WHEN YOU WERE DRINKING IN THE PAST YEAR?1 OR 2 (0 POINTS) HOW OFTEN DID YOU HAVE A DRINK CONTAINING ALCOHOL IN THE PAST YEAR?TWO TO FOUR TIMES A MONTH (2 POINTS) POINTS2 INTERPRETATIONNEGATIVE RECREATIONAL DRUG USE DRUG USE? SMOKED MARIJUANA FOR SLEEP AND PAIN 11/19/21.MARIJUANA CAFFEINE CAFFEINE USE?YES 1 CUP DAILY SEXUAL HX HAD SEX IN THE LAST 12 MONTHS (VAGINAL, ORAL, OR ANAL)?NO HAVE YOU EVER HAD AN STD?YES CHLAMYDIA?YES CHRISTIANITY NO SPIRITISM BELIEFS THAT WOULD IMPACT HEALTH CARE. LANGUAGE SWEDISH. 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 DIET: REGULAR. EXERCISE: WALKS AND ACTIVE IN HOUSE. MARITAL STATUS: . OTHERS AT HOME: LIVES ALONE. HOUSING: RENTS APARTMENT. ADVANCE DIRECTIVE ADVANCE DIRECTIVE DISCUSSED WITH PATIENT:YES BLAISE BERGER [phone] [facility] PROXY. 11/27/20 HOSPITALIZATION/MAJOR DIAGNOSTIC PROCEDURE SURGERY RELATED CARDIAC RELATED R LEG WOUND WITH CELULITIS [facility] 06/10-07/11 [facility] 01/29/2021 REVIEW OF SYSTEMS CONSTITUTIONAL: ANY RECENT FEVER NO . CHILLS NO . WEIGHT CHANGE OF UNKNOWN REASONS NO . GASTROENTEROLOGY: NEW UNEXPLAINABLE CHANGES IN BOWEL CONTROL NO . CONSTIPATION NO . GENITOURINARY: ANY NEW CHANGE IN BLADDER CONTROL? NO . NEUROLOGY: NEW ONSET DIZZINESS OR NEUROLOGICAL CHANGES NOT MENTIONED NO . NEW NUMBNESS OR PAIN PATTERNS NOT MENTIONED AND PERTINENT TO TODAY'S VISIT NO . CARDIOLOGY: NEW CHEST PRESSURE NO . PATIENT DENIES NO . RESPIRATORY: UNEXPLAINABLE COUGH NO . NEW SHORTNESS OF BREATH NO . VITAL SIGNS WT 171.2 LBS, HT 64 IN, BMI 29.38 INDEX, BP 172/79 MM HG, HR 91 /MIN, RR 18 /MIN, TEMP 98.3 F, OXYGEN SAT % 93%, SAFE IN ENV? (Y/N) YES, NA INITIALS MA 14:24, REVIEWED BY: WINTER LE MA. EXAMINATION GENERAL EXAMINATION: GENERALNO ACUTE DISTRESS, WELL NOURISHED AND HYDRATED. PSYCHAPPROPRIATE MOOD AND AFFECT . LUNGS:CLEAR TO AUSCULTATION BILATERALLY, NO WHEEZES, RHONCHI, RALES. HEART:NO MURMURS, REGULAR RATE AND RHYTHM. ASSESSMENTS FIBROMYALGIA - M79.7 (PRIMARY) TREATMENT FIBROMYALGIA INCREASE TIZANIDINE HCL TABLET, 4 MG, 1 TABLET NEEDED, ORALLY, AT BEDTIME, 30 DAYS, 30 DECREASE LYRICA CAPSULE, 100 MG, 1 CAPSULE, ORALLY, DAILY, 7 DAY(S), 7 START LYRICA CAPSULE, 100 MG, 1 CAPSULE, ORALLY, EVERY OTHER DAY X 1 WEEK, 4 DAYS, 4 NOTES: 65-YEAR-OLD FEMALE IN FOR CHRONIC PAIN FOLLOW-UP. GIVEN PRESENTING SYMPTOMS RECOMMEND TITRATING OFF LYRICA AND INCREASING TIZANIDINE WITH FOLLOW-UP IN ONE MONTH TO DETERMINE EFFICACY OF TREATMENT. PATIENT HAS EXPRESSED UNDERSTANDING OF AND WAS IN AGREEMENT WITH TREATMENT PLAN. GIVEN TIME TO ASK QUESTIONS AND EXPRESS CONCERNS. PROCEDURE CODES FA211 ESTABILISHED PATIENT [facility] CHARGE DISPOSITION & COMMUNICATION FOLLOW UP 4 WEEKS (REASON: FIBROMYALGIA) ELECTRONICALLY SIGNED BY VERNON TUCKER ON 02/06/2021 AT 01:07 PM EDT DISCLAIMER : THIS IS A VISIT SUMMARY EXTRACTED FROM THE [facility] CHART. IT IS NOT A COPY OF THE [facility] PROGRESS NOTE. DADA
== END ==
LOC: M PAIN 14:30
PROVIDERS: ATTEND Family Medicine
DX: M79.7 Fibromyalgia (principal); E03.9 Hypothyroidism, unspecified; G25.81 Restless legs syndrome; K21.9 Gastro-esophageal reflux disease without esophagitis; Z86.59 Personal history of other mental and behavioral disorders; Z96.643 Presence of artificial hip joint, bilateral; Z96.611 Presence of right artificial shoulder joint; Z96.652 Presence of left artificial knee joint; Z87.891 Personal history of nicotine dependence; Z88.1 Allergy status to other antibiotic agents; Z88.8 Allergy status to other drugs, medicaments and biological substances; Z79.82 Long term (current) use of aspirin; Z79.51 Long term (current) use of inhaled steroids; Z79.899 Other long term (current) drug therapy

== ENCOUNTER 2021-02-23 11:04 | Emergency (ER) | payer MEDICARE, MEDICAID ==
[~2021-02-23] VITALS: Ht 162.6 cm; Wt 75.0 kg
[2021-02-23 11:58] LABS: BASO % 0.6 % (0.0-1.0); EOS # 0.4 10^3/uL (0.0-0.5); EOS % 6.1 % (0.0-3.0); HEMATOCRIT 43.2 % (36.0-47.0); HEMOGLOBIN 13.4 g/dl (12.0-15.5); LYMPH # 0.9 10^3/uL (1.5-5.0); LYMPH % 13.8 % (24.0-44.0); MEAN CORPUSCULAR HEMOGLOBIN 28.8 pg (27.0-33.0); MEAN CORPUSCULAR VOLUME 92.9 fl (80.0-96.0); MONO # 0.7 10^3/uL (0.0-0.8); MONO % 10.6 % (2.0-8.0); NEUTROPHILS # 4.4 10^3/uL (1.5-8.5); NEUTROPHILS % 68.6 % (36.0-66.0); PLATELET COUNT, AUTOMATED 323 10^3/uL (150-450); RED BLOOD COUNT 4.65 10^6/uL (4.00-5.40); WHITE BLOOD COUNT 6.4 10^3/uL (4.0-10.0)
--- NOTE | 2021-02-23 12:30 | REP ---
INDICATION: cough. COMPARISON: Portable chest dated 01/20/2021. TECHNIQUE: Portable AP chest with the patient upright.. FINDINGS: The lung hdz are clear. Cardiac size is enlarged, unchanged. There is a large fixed hiatal hernia, unchanged. Right shoulder arthroplasty, unchanged. The shelley, mediastinum, and skeletal structures are otherwise unremarkable. IMPRESSION: Cardiomegaly, unchanged. Large fixed hiatal hernia, unchanged. Lung hdz are clear. <Electronically signed by Romeo Calabrese > 02/23/21 [id number]
[2021-02-23 12:33] LABS: ALT/SGPT 16 U/L (12-78); BILIRUBIN,DIRECT 0.1 MG/DL (0.0-0.2); BILIRUBIN,TOTAL 0.2 MG/DL (0.2-1.0); CK-MB VALUE MASS 2.2 NG/ML (<3.6); CPK CREATINE PHOSPHOKINASE 48 U/L (26-192); LIPASE 86 U/L (73-393); MB/CK RELATIVE INDEX 4.58 (< OR =4); NT-PRO BNP 622 PG/ML (<125); TOTAL PROTEIN 6.5 GM/DL (6.4-8.2); TROPONIN I < 0.02 NG/ML (< 0.10)
[2021-02-23] MEDS ORDERED: ACETAMINOPH W/CODEINE #3 TAB UD PO ONE (13:05)
[2021-02-23] MEDS ORDERED: ACET1TAB16 PO (14:51)
[2021-02-23] MEDS ORDERED: ACET300T47 PO (14:52)
[2021-02-23 15:00] VITALS: BP 168/78
== END 2021-02-23 15:19 | disposition home or self-care (01) ==
LOC: M ED 11:04 → EDBD 11:04 → M ED 15:19
DX: M79.7 Fibromyalgia (principal); I11.0 Hypertensive heart disease with heart failure; I25.2 Old myocardial infarction; E78.5 Hyperlipidemia, unspecified; J44.9 Chronic obstructive pulmonary disease, unspecified; K21.9 Gastro-esophageal reflux disease without esophagitis; I25.10 Atherosclerotic heart disease of native coronary artery without angina pectoris; Z95.2 Presence of prosthetic heart valve; E03.9 Hypothyroidism, unspecified; M06.9 Rheumatoid arthritis, unspecified; Z88.1 Allergy status to other antibiotic agents; Z88.8 Allergy status to other drugs, medicaments and biological substances; Z91.048 Other nonmedicinal substance allergy status; Z79.82 Long term (current) use of aspirin; Z79.899 Other long term (current) drug therapy

== ENCOUNTER → 2021-02-28 | Outpatient (CLI) | payer MEDICARE, MEDICAID ==
[~2021-02-28] MED LIST changes: +ACET300T47 PO; +AMIT10TA7 PO
[2021-02-28 11:10] LABS: HEMOGLOBIN A1c 5.3 %
[2021-02-28 11:46] LABS: C REACTIVE PROTEIN QUANTITATIV 6.25 MG/DL (0.00-0.30); THYROID STIMULATING HORMONE 0.079 uIU/ML (0.358-3.740)
[2021-03-01 15:07] LABS: IgG P18 AB Absent (.); IgG P23 AB Absent (.); IgG P28 AB Absent (.); IgG P30 AB Absent (.); IgG P39 AB Absent (.); IgG P41 AB Absent (.); IgG P45 AB Absent (.); IgG P66 AB Absent (.); IgG P93 AB Absent (.); IgM P23 AB Absent (.); IgM P39 AB Absent (.); IgM P41 AB Absent (.); LYME IgG WB INTERPRETATION Negative (.); LYME IgM WB INTERPRETATION Negative (.)
== END ==
LOC: M LAB 09:44
PROVIDERS: ATTEND Pediatrics
DX: M79.10 Myalgia, unspecified site (principal); E03.9 Hypothyroidism, unspecified; E11.9 Type 2 diabetes mellitus without complications

== ENCOUNTER → 2021-02-28 | Outpatient (CLI) | payer MEDICARE, MEDICAID ==
[2021-02-28 10:23] LABS: ABG BASE EXCESS -4.6 (-2.0-2.0); ABG HCO3 19.1 MEQ/L (22.0-26.0); ABG O2 SATURATION 95.7 % (95.0-99.0); ABG PARTIAL PRESSURE CO2 31.7 mmHg (35.0-45.0); ABG PARTIAL PRESSURE O2 78.1 mmHg (75.0-100.0); ABG STANDARD HCO3 20.6 MEQ/L (22.0-26.0); ABG TOTAL CO2 20.1 MEQ/L (23.0-31.0); ABG pH (ARTERIAL) 7.398 UNITS (7.350-7.450)
--- NOTE | 2021-02-28 10:51 | PFTRPT ---
Height: 64.00 Inches Weight: 158.00 Lbs BSA: 1.77 Diagnosis: J44.9 DATE: 02/28/2021 ORDERING PHYSICIAN: Kevin Joy, Pre and post bronchodilator studies have excellent technical quality. Forced vital capacity is reduced. FEV1 out of proportion. Obstructive index is therefore reduced. Expiratory limit of the flow-volume loop is consistent with significant flow rate limitation. No significant bronchodilator response is identified. Total lung capacity is normal. Residual volume suggests air trapping. Diffusing capacity is normal. Hemoglobin is acceptable at 14. Airway resistance elevated with a concomitant decrease in airway conductance. IMPRESSION: Mild to moderate obstructive ventilatory impairment with underlying air trapping. No bronchodilator response. Please correlate clinically. MTDD
== END ==
LOC: M CARPUL 09:38
PROVIDERS: ATTEND Internal Medicine Pulmonary Disease
DX: J44.9 Chronic obstructive pulmonary disease, unspecified (principal); M79.10 Myalgia, unspecified site; E03.9 Hypothyroidism, unspecified; E11.9 Type 2 diabetes mellitus without complications

== ENCOUNTER 2021-03-01 10:56 | Emergency (ER) | payer MEDICARE, MEDICAID ==
[~2021-03-01] VITALS: Ht 165.1 cm; Wt 71.8 kg
[~2021-03-01 10:56] MED LIST changes: -AMIT10TA7 PO
[2021-03-01] MEDS ORDERED: AMIT10TA7 PO (12:24)
[2021-03-01] MEDS ORDERED: CYCL-707 PO (12:24)
[2021-03-01 12:30] VITALS: BP 142/73
== END 2021-03-01 12:31 | disposition home or self-care (01) ==
LOC: M ED 10:56
DX: Z76.0 Encounter for issue of repeat prescription (principal); M79.7 Fibromyalgia; Z88.1 Allergy status to other antibiotic agents; K21.9 Gastro-esophageal reflux disease without esophagitis; I10 Essential (primary) hypertension

== ENCOUNTER 2021-03-28 09:06 | Emergency (ER) | payer MEDICARE, MEDICAID ==
[~2021-03-28] VITALS: Ht 154.9 cm; Wt 62.3 kg
[~2021-03-28 09:06] MED LIST changes: +AMIT10TA7 PO; +BACTDSTA PO; -SULF1TAB93 PO
--- NOTE | 2021-03-28 10:07 | REP ---
INDICATION: trauma COMPARISON: None. TECHNIQUE: AP, lateral, and swimmers views. FINDINGS: Alignment and kyphosis is maintained. Moderate multilevel degenerative changes include endplate sclerosis with elements of disc space narrowing and bridging osteophytosis. No acute fracture/compression injury or subluxation. IMPRESSION: Degenerative changes. No acute fracture/compression injury or subluxation. <Electronically signed by Jackson Covington > 03/28/21 [id number]
--- NOTE | 2021-03-28 10:11 | REP ---
INDICATION: CP s/p fall COMPARISON: None. TECHNIQUE: Frontal view of the chest with multiple views of the right and left hemithorax. FINDINGS: Acute posterolateral left 4th rib fracture identified. Possible old bilateral healed rib fractures. Mediastinum and cardiac silhouette are grossly normal. Large hiatal hernia is suspected. Lung hdz demonstrate chronic interstitial changes. No focal consolidation, effusion, or pneumothorax identified. Right shoulder replacement. IMPRESSION: Acute left 4th rib fracture. No consolidation/contusion, effusion, or pneumothorax. <Electronically signed by Jackson Covington > 03/28/21 [id number]
[2021-03-28] MEDS ORDERED: PERCOCET 5MG/325MG TAB PO ONE (10:15)
[2021-03-28] MEDS ORDERED: PERC5TAB12 PO (10:22)
[2021-03-28 10:47] VITALS: BP 141/73
== END 2021-03-28 10:54 | disposition home or self-care (01) ==
LOC: EDBD 09:06 → M ED 09:06
DX: S22.31XA Fracture of one rib, right side, initial encounter for closed fracture (principal); W19.XXXA Unspecified fall, initial encounter; Y92.9 Unspecified place or not applicable; Y93.89 Activity, other specified; Y99.9 Unspecified external cause status; I25.10 Atherosclerotic heart disease of native coronary artery without angina pectoris; I10 Essential (primary) hypertension; J45.909 Unspecified asthma, uncomplicated; J44.9 Chronic obstructive pulmonary disease, unspecified; M19.90 Unspecified osteoarthritis, unspecified site; Z87.891 Personal history of nicotine dependence; M51.9 Unspecified thoracic, thoracolumbar and lumbosacral intervertebral disc disorder; K44.9 Diaphragmatic hernia without obstruction or gangrene; Z96.611 Presence of right artificial shoulder joint; Z79.82 Long term (current) use of aspirin; Z79.899 Other long term (current) drug therapy; Z88.8 Allergy status to other drugs, medicaments and biological substances; Z88.1 Allergy status to other antibiotic agents; Z91.89 Other specified personal risk factors, not elsewhere classified

== ENCOUNTER 2021-04-14 18:48 | Emergency (ER) | payer MEDICARE, OTHER ==
[~2021-04-14] VITALS: Ht 162.6 cm; Wt 66.1 kg
[2021-04-14] MEDS ORDERED: LEVO112T2 (19:03)
[2021-04-14] MEDS ORDERED: SUMA50TA2 (19:03)
[2021-04-14] MEDS ORDERED: PANT40TA29 (19:03)
[2021-04-14] MEDS ORDERED: AMIT25TA17 (19:03)
[2021-04-14] MEDS ORDERED: HYDR200T3 (19:03)
[2021-04-14] MEDS ORDERED: MELO15TA28 (19:03)
[2021-04-14] MEDS ORDERED: methylPREDNISolone 1,000 MG, VIAL MATE ADAPTER 1 EACH in NS 250 ML IV ONE (20:30)
[2021-04-14] MEDS ORDERED: NS 1,000 ML IV ONE (20:30)
[2021-04-14 21:07] LABS: BASO # 0.1 10^3/uL (0.0-0.2); BASO % 0.6 % (0.0-1.0); EOS # 0.5 10^3/uL (0.0-0.5); EOS % 6.3 % (0.0-3.0); HEMOGLOBIN 11.2 g/dl (12.0-15.5); LYMPH # 1.2 10^3/uL (1.5-5.0); LYMPH % 14.2 % (24.0-44.0); MEAN CORPUSCULAR HEMOGLOBIN 28.1 pg (27.0-33.0); MEAN CORPUSCULAR HGB CONC 30.3 g/dl (32.0-36.5); MONO # 0.7 10^3/uL (0.0-0.8); MONO % 8.3 % (2.0-8.0); NEUTROPHILS # 5.8 10^3/uL (1.5-8.5); NEUTROPHILS % 70.2 % (36.0-66.0); PLATELET COUNT, AUTOMATED 359 10^3/uL (150-450); RED BLOOD COUNT 3.98 10^6/uL (4.00-5.40); WHITE BLOOD COUNT 8.3 10^3/uL (4.0-10.0)
[2021-04-14 21:30] LABS: ERYTHROCYTE SEDIMENTATION RATE 64 mm/hr (0-30)
[2021-04-14 21:46] LABS: ALBUMIN 2.6 GM/DL (3.2-5.2); BILIRUBIN,DIRECT 0.1 MG/DL (0.0-0.2); BILIRUBIN,TOTAL 0.3 MG/DL (0.2-1.0); C REACTIVE PROTEIN QUANTITATIV 7.64 MG/DL (0.00-0.30); FREE T4 1.03 NG/DL (0.76-1.46); THYROID STIMULATING HORMONE 5.6 uIU/ML (0.358-3.740); TOTAL PROTEIN 6.7 GM/DL (6.4-8.2)
--- NOTE | 2021-04-14 21:54 | REPVR ---
PROCEDURE INFORMATION: Exam: XR Chest Exam date and time: 04/14/2021 8:50 PM Age: 65 years old Clinical indication: Chest wall pain; Additional info: Recent rib FX increased pain TECHNIQUE: Imaging protocol: XR of the chest. Views: 2 views. COMPARISON: 1. CR Ribs Bilat w-PA CHEST 2021-03-28 09:47 2. OK Chest, 1 view 2021-02-23 12:13 3. CR Chest, 1 view 2021-01-20 05:58 FINDINGS: Lungs: No focal airspace consolidation. Pleural spaces: Trace left-sided pleural thickening adjacent. No pneumothorax. Heart/Mediastinum: Large hiatal hernia with fluid level. Bones/joints: Right shoulder arthroplasty hardware. Relatively hypodense bones indicating osteopenia. Kyphotic thoracic curvature. Unchanged subtle left posterior 4th rib fracture. IMPRESSION: 1. Large hiatal hernia with fluid level. 2. No focal airspace consolidation. 3. Unchanged subtle left posterior 4th rib fracture. Trace left-sided pleural thickening adjacent. Electronically signed by: Mikey Garces On 04/14/2021 21:54:33 PM
[2021-04-14] MEDS ORDERED: ACETAMINOPH W/CODEINE #3 TAB UD PO ONE (22:30)
[2021-04-14 22:57] VITALS: BP 158/78
== END 2021-04-14 23:00 | disposition home or self-care (01) ==
LOC: M ED 18:48
DX: M79.7 Fibromyalgia (principal); K44.9 Diaphragmatic hernia without obstruction or gangrene; S22.31XD Fracture of one rib, right side, subsequent encounter for fracture with routine healing; W19.XXXD Unspecified fall, subsequent encounter; Y92.9 Unspecified place or not applicable; E03.9 Hypothyroidism, unspecified; I25.10 Atherosclerotic heart disease of native coronary artery without angina pectoris; I25.2 Old myocardial infarction; I10 Essential (primary) hypertension; J44.9 Chronic obstructive pulmonary disease, unspecified; K21.9 Gastro-esophageal reflux disease without esophagitis; F41.9 Anxiety disorder, unspecified; F33.9 Major depressive disorder, recurrent, unspecified; Z88.1 Allergy status to other antibiotic agents; Z91.048 Other nonmedicinal substance allergy status; Z79.899 Other long term (current) drug therapy
CPT/HCPCS: 71046; 80047; 80076; 82550; 84439; 84443; 85025; 85652; 86140; 96365; 99284; J2930